=== PATIENT | male | born 1955 | race Hispanic/Latino ===

== ENCOUNTER 2018-08-14 08:53 | Observation (INO) | payer OTHER ==
--- OUTSIDE RECORDS SUMMARY | 2018-08-14 08:56 | XMS REPORT | Clinical Summary ---
:1955 Author Organization [facility] Address [address] [place] [address] Care Team Providers Name Role Phone Iban Primary Care Provider Allergies No Known Allergies Medications Medication Sig Dispensed Refills Start Date End Date Status HYDROcodone-acetamino Take 1 tablet 0 Active phen (NORCO 10-325) by mouth 10-325 mg per tablet every 6 (six) hours as needed for Pain. diazePAM (VALIUM) 10 Take 10 mg by 0 Active MG tablet mouth every 6 (six) hours as needed for Anxiety. amiodarone (PACERONE) Take 1 tablet 60 tablet 1 12/05/2017 Active 200 MG tablet (200 mg 9 total) by mouth 2 (two) times daily. aspirin 325 MG tablet Take 1 tablet 0 12/06/2017 Active (325 mg 9 total) by mouth daily. atorvastatin Take 1 tablet 30 tablet 1 12/05/2017 Active (LIPITOR) 40 MG (40 mg total) 9 tablet by mouth nightly. metoprolol Take 1 tablet 60 tablet 1 12/05/2017 Active (LOPRESSOR) 50 MG (50 mg total) 9 tablet by mouth 2 (two) times daily. tamsulosin (FLOMAX) Take 1 30 capsule 1 12/06/2017 Active 0.4 mg Cp24 24 hr capsule (0.4 capsule mg total) by mouth daily. cyclobenzaprine Take 1 tablet 30 tablet 0 12/05/2017 (FLEXERIL) 10 MG (10 mg total) 8 tablet by mouth 3 (three) times daily as needed for Muscle spasms for up to 10 days. furosemide (LASIX) 40 Take 1 tablet 30 tablet 1 12/06/2017 Discontinued MG tablet (40 mg total) 8 by mouth daily. furosemide (LASIX) 20 Take 1 tablet 30 tablet 1 12/06/2017 Discontinued MG tablet (20 mg total) 8 by mouth daily. furosemide (LASIX) 20 Take 1 tablet 7 tablet 0 12/06/2017 MG tablet (20 mg total) 8 by mouth daily for 7 days. Active Problems Problem Noted Date CAD (coronary artery disease) 11/29/2017 Coronary artery disease 11/29/2017 S/P CABG x 4 11/29/2017 Chronic pain 11/29/2017 Acute blood loss anemia 11/29/2017 Thrombocytopenia 11/29/2017 Acute postoperative pain 11/29/2017 Hyperglycemia 11/29/2017 Borderline diabetes 11/29/2017 Acute respiratory insufficiency, postoperative 11/29/2017 Encounters Date Type Specialty Care Team Description 11/29/2017 Surgery Chase Wong BYPASS,AORTO CORONARY MD Stewart JORGE/SVG 11/29/2017 Anesthesia Event Roland Tellez MD 11/28/2017 - Hospital Encounter Cardiology Chase Wong Acute postoperative pain; 12/05/2017 MD Stewart Acute respiratory insufficiency, postoperative; Zane Medellin Hyperglycemia; MD Matthew S/P CABG x 4; Acute blood loss anemia; Borderline diabetes; Other chronic pain; Thrombocytopenia (HCC) 11/28/2017 Orders Only General Internal Medicine after 08/13/2017 Social History Tobacco Use Types Packs/Day Years Used Date Never Smoker Smokeless Tobacco: Never Used Alcohol Use Drinks/Week oz/Week Comments No Sex Assigned at Date Recorded Not on file Job Start Date Occupation Industry Not on file Not on file Not on file Travel History Travel Start Travel End No recent travel history available. Last Filed Vital Signs Vital Sign Reading Time Taken Blood Pressure 118/60 12/05/2017 3:52 PM USABILITY ENGINEER Pulse 75 12/05/2017 3:52 PM USABILITY ENGINEER Temperature 36.7 C (98 F) 12/05/2017 3:52 PM USABILITY ENGINEER Respiratory Rate 18 12/05/2017 3:52 PM USABILITY ENGINEER Oxygen Saturation 97% 12/05/2017 3:52 PM USABILITY ENGINEER Inhaled Oxygen Concentration 40% 11/29/2017 10:00 PM USABILITY ENGINEER Weight 125.7 kg (277 lb 1.6 oz) 12/03/2017 10:15 AM USABILITY ENGINEER Height 185.4 cm (6' 1") 11/28/2017 2:00 PM USABILITY ENGINEER Body Mass Index 36.56 12/03/2017 10:15 AM USABILITY ENGINEER Plan of Treatment Not on file Implants Implanted Type Area Jointer Submarine Cable Device Shelf Model / Identifier Expiration Serial / Date Lot Sternal Zipfix Ndl Strl .[id number] - [id number] Cardiovascular N/A: SYNTHES:SYNTHES 07/16/2022..20S / Implanted: Qty: 1 on 11/29/2017 by Chase Wong MD [facility] / [id number] Procedures Procedure Name Priority Date/Time Associated Comments Diagnosis RHYTHM STRIP - SCAN 12/22/2017 12:01 PM USABILITY ENGINEER PERMANENT LAB REPORT - 12/07/2017 1:21 SCAN PM USABILITY ENGINEER RHYTHM STRIP - SCAN 12/07/2017 1:21 PM USABILITY ENGINEER ECHOCARDIOGRAM REPORT - 12/05/2017 5:20 SCAN PM USABILITY ENGINEER 2D ECHO W/ DOPPLER DESTINY 12/05/2017 3:03 Results for this (CW/PW/COLOR) PM USABILITY ENGINEER procedure are in the results section. POCT-GLUCOSE METER Routine 12/05/2017 12:20 Results for this PM USABILITY ENGINEER procedure are in the results section. POCT-GLUCOSE METER Routine 12/05/2017 8:29 Results for this AM USABILITY ENGINEER procedure are in the results section. POCT-GLUCOSE METER Routine 12/05/2017 12:23 Results for this AM USABILITY ENGINEER procedure are in the results section. CBC W/PLT COUNT & AUTO Routine 12/04/2017 5:50 Results for this DIFFERENTIAL AM USABILITY ENGINEER procedure are in the results section. HEMOGLOBIN A1C Routine 12/04/2017 5:50 Results for this AM USABILITY ENGINEER procedure are in the results section. BASIC METABOLIC PANEL (7) Routine 12/04/2017 5:50 Results for this AM USABILITY ENGINEER procedure are in the results section. CBC W/PLT COUNT & AUTO Routine 12/04/2017 5:50 Results for this DIFFERENTIAL AM USABILITY ENGINEER procedure are in the results section. POCT-GLUCOSE METER Routine 12/03/2017 9:37 Results for this PM USABILITY ENGINEER procedure are in the results section. POCT-GLUCOSE METER Routine 12/03/2017 6:13 Results for this PM USABILITY ENGINEER procedure are in the results section. CBC W/PLT COUNT & AUTO Routine 12/03/2017 4:47 Results for this DIFFERENTIAL AM USABILITY ENGINEER procedure are in the results section. MAGNESIUM Routine 12/03/2017 4:47 Results for this AM USABILITY ENGINEER procedure are in the results section. CBC W/PLT COUNT & AUTO Routine 12/03/2017 4:47 Results for this DIFFERENTIAL AM USABILITY ENGINEER procedure are in the results section. BASIC METABOLIC PANEL (7) Routine 12/03/2017 4:47 Results for this AM USABILITY ENGINEER procedure are in the results section. POCT-GLUCOSE METER Routine 12/02/2017 9:37 Results for this PM USABILITY ENGINEER procedure are in the results section. POCT-GLUCOSE METER Routine 12/02/2017 6:40 Results for this PM USABILITY ENGINEER procedure are in the results section. PT/APTT Routine 12/02/2017 8:52 Results for this AM USABILITY ENGINEER procedure are in the results section. CBC W/PLT COUNT & AUTO Routine 12/02/2017 8:44 Results for this DIFFERENTIAL AM USABILITY ENGINEER procedure are in the results section. MAGNESIUM Routine 12/02/2017 8:44 Results for this AM USABILITY ENGINEER procedure are in the results section. CBC W/PLT COUNT & AUTO Routine 12/02/2017 8:44 Results for this DIFFERENTIAL AM USABILITY ENGINEER procedure are in the results section. BASIC METABOLIC PANEL (7) Routine 12/02/2017 8:44 Results for this AM USABILITY ENGINEER procedure are in the results section. POCT-GLUCOSE METER Routine 12/02/2017 8:27 Results for this AM USABILITY ENGINEER procedure are in the results section. ECG 12-LEAD Routine 12/02/2017 8:08 Results for this AM USABILITY ENGINEER procedure are in the results section. POCT-GLUCOSE METER Routine 12/01/2017 9:14 Results for this PM USABILITY ENGINEER procedure are in the results section. POCT-GLUCOSE METER Routine 12/01/2017 5:35 Results for this PM USABILITY ENGINEER procedure are in the results section. HEMOGLOBIN AND HEMATOCRIT Routine 12/01/2017 3:38 Results for this PM USABILITY ENGINEER procedure are in the results section. POCT-GLUCOSE METER Routine 12/01/2017 12:48 Results for this PM USABILITY ENGINEER procedure are in the results section. ECHOCARDIOGRAM REPORT - 12/01/2017 7:20 SCAN AM USABILITY ENGINEER POCT-GLUCOSE METER Routine 12/01/2017 7:20 Results for this AM USABILITY ENGINEER procedure are in the results section. CBC W/PLT COUNT & AUTO Routine 12/01/2017 4:42 Results for this DIFFERENTIAL AM USABILITY ENGINEER procedure are in the results section. MAGNESIUM Routine 12/01/2017 4:42 Results for this AM USABILITY ENGINEER procedure are in the results section. BASIC METABOLIC PANEL (7) Routine 12/01/2017 4:42 Results for this AM USABILITY ENGINEER procedure are in the results section. CBC W/PLT COUNT & AUTO Routine 12/01/2017 4:42 Results for this DIFFERENTIAL AM USABILITY ENGINEER procedure are in the results section. XR CHEST 1 VIEW Routine 12/01/2017 4:02 Results for this PORTABLE/BEDSIDE AM USABILITY ENGINEER procedure are in the results section. POCT-GLUCOSE METER Routine 11/30/2017 9:57 Results for this PM USABILITY ENGINEER procedure are in the results section. TRANSFUSION SERVICE 11/30/2017 5:42 REPORT - SCAN PM USABILITY ENGINEER POCT-GLUCOSE METER Routine 11/30/2017 4:55 Results for this PM USABILITY ENGINEER procedure are in the results section. POCT-GLUCOSE METER Routine 11/30/2017 12:04 Results for this PM USABILITY ENGINEER procedure are in the results section. CBC (HEMOGRAM ONLY) STAT 11/30/2017 12:04 Results for this PM USABILITY ENGINEER procedure are in the results section. POCT-GLUCOSE METER Routine 11/30/2017 9:17 Results for this AM USABILITY ENGINEER procedure are in the results section. POCT-GLUCOSE METER Routine 11/30/2017 4:44 Results for this AM USABILITY ENGINEER procedure are in the results section. XR CHEST 1 VIEW Routine 11/30/2017 4:23 Results for this PORTABLE/BEDSIDE AM USABILITY ENGINEER procedure are in the results section. CBC W/PLT COUNT & AUTO Routine 11/30/2017 3:04 Results for this DIFFERENTIAL AM USABILITY ENGINEER procedure are in the results section. MAGNESIUM Routine 11/30/2017 3:04 Results for this AM USABILITY ENGINEER procedure are in the results section. BASIC METABOLIC PANEL (7) Routine 11/30/2017 3:04 Results for this AM USABILITY ENGINEER procedure are in the results section. CBC W/PLT COUNT & AUTO Routine 11/30/2017 3:04 Results for this DIFFERENTIAL AM USABILITY ENGINEER procedure are in the results section. POCT-GLUCOSE METER Routine 11/30/2017 3:03 Results for this AM USABILITY ENGINEER procedure are in the results section. POCT-GLUCOSE METER Routine 11/30/2017 2:01 Results for this AM USABILITY ENGINEER procedure are in the results section. POCT-GLUCOSE METER Routine 11/30/2017 1:01 Results for this AM USABILITY ENGINEER procedure are in the results section. CALCIUM, IONIZED STAT 11/30/2017 12:15 Results for this AM USABILITY ENGINEER procedure are in the results section. POTASSIUM STAT 11/30/2017 12:15 Results for this AM USABILITY ENGINEER procedure are in the results section. MAGNESIUM STAT 11/30/2017 12:15 Results for this AM USABILITY ENGINEER procedure are in the results section. POCT-GLUCOSE METER Routine 11/30/2017 12:07 Results for this AM USABILITY ENGINEER procedure are in the results section. POCT-GLUCOSE METER Routine 11/29/2017 10:49 Results for this PM USABILITY ENGINEER procedure are in the results section. POCT-GLUCOSE METER Routine 11/29/2017 10:11 Results for this PM USABILITY ENGINEER procedure are in the results section. POCT-GLUCOSE METER Routine 11/29/2017 9:02 Results for this PM USABILITY ENGINEER procedure are in the results section. BLOOD GAS, ARTERIAL STAT 11/29/2017 8:55 Results for this PM USABILITY ENGINEER procedure are in the results section. POCT-GLUCOSE METER Routine 11/29/2017 7:55 Results for this PM USABILITY ENGINEER procedure are in the results section. BLOOD GAS, ARTERIAL STAT 11/29/2017 7:50 Results for this PM USABILITY ENGINEER procedure are in the results section. MAGNESIUM Routine 11/29/2017 7:50 Results for this PM USABILITY ENGINEER procedure are in the results section. POCT-GLUCOSE METER Routine 11/29/2017 6:41 Results for this PM USABILITY ENGINEER procedure are in the results section. TRANSFUSION SERVICE 11/29/2017 5:43 REPORT - SCAN PM USABILITY ENGINEER POCT-GLUCOSE METER Routine 11/29/2017 5:42 Results for this PM USABILITY ENGINEER procedure are in the results section. 2D ECHO W/ DOPPLER Routine 11/29/2017 5:07 Results for this (CW/PW/COLOR) PM USABILITY ENGINEER procedure are in the results section. XR CHEST 1 VIEW STAT 11/29/2017 4:00 Results for this PORTABLE/BEDSIDE PM USABILITY ENGINEER procedure are in the results section. APTT STAT 11/29/2017 3:42 Results for this PM USABILITY ENGINEER procedure are in the results section. PROTHROMBIN TIME/INR STAT 11/29/2017 3:42 Results for this PM USABILITY ENGINEER procedure are in the results section. CBC W/PLT COUNT & AUTO STAT 11/29/2017 3:36 Results for this DIFFERENTIAL PM USABILITY ENGINEER procedure are in the results section. MAGNESIUM STAT 11/29/2017 3:36 Results for this PM USABILITY ENGINEER procedure are in the results section. BASIC METABOLIC PANEL (7) Routine 11/29/2017 3:36 Results for this PM USABILITY ENGINEER procedure are in the results section. CBC W/PLT COUNT & AUTO STAT 11/29/2017 3:36 Results for this DIFFERENTIAL PM USABILITY ENGINEER procedure are in the results section. LACTIC ACID, ARTERIAL, STAT 11/29/2017 3:36 Results for this WHOLE BLOOD PM USABILITY ENGINEER procedure are in the results section. OXYGEN SATURATION, STAT 11/29/2017 3:36 Results for this MEASURED PM USABILITY ENGINEER procedure are in the results section. HGB/HCT (H&H) - STAT LAB STAT 11/29/2017 3:36 Results for this PM USABILITY ENGINEER procedure are in the results section. GLUCOSE-STAT LAB STAT 11/29/2017 3:36 Results for this PM USABILITY ENGINEER procedure are in the results section. CALCIUM, IONIZED STAT 11/29/2017 3:36 Results for this PM USABILITY ENGINEER procedure are in the results section. POTASSIUM-STAT LAB STAT 11/29/2017 3:36 Results for this PM USABILITY ENGINEER procedure are in the results section. SODIUM NA-STAT LAB STAT 11/29/2017 3:36 Results for this PM USABILITY ENGINEER procedure are in the results section. BLOOD GAS, ARTERIAL STAT 11/29/2017 3:36 Results for this PM USABILITY ENGINEER procedure are in the results section. PREPARE PLATELETS STAT 11/29/2017 3:30 Results for this PM USABILITY ENGINEER procedure are in the results section. POCT-ACT Routine 11/29/2017 1:44 Results for this PM USABILITY ENGINEER procedure are in the results section. HGB/HCT (H&H) - STAT LAB STAT 11/29/2017 1:40 Results for this PM USABILITY ENGINEER procedure are in the results section. GLUCOSE-STAT LAB STAT 11/29/2017 1:40 Results for this PM USABILITY ENGINEER procedure are in the results section. POTASSIUM-STAT LAB STAT 11/29/2017 1:40 Results for this PM USABILITY ENGINEER procedure are in the results section. SODIUM NA-STAT LAB STAT 11/29/2017 1:40 Results for this PM USABILITY ENGINEER procedure are in the results section. BLOOD GAS, ARTERIAL STAT 11/29/2017 1:40 Results for this PM USABILITY ENGINEER procedure are in the results section. THROMBOELASTOGRAPH (TEG) STAT 11/29/2017 1:40 Results for this PM USABILITY ENGINEER procedure are in the results section. FIBRINOGEN STAT 11/29/2017 1:40 Results for this PM USABILITY ENGINEER procedure are in the results section. APTT STAT 11/29/2017 1:40 Results for this PM USABILITY ENGINEER procedure are in the results section. PROTHROMBIN TIME/INR STAT 11/29/2017 1:40 Results for this PM USABILITY ENGINEER procedure are in the results section. CALCIUM, IONIZED STAT 11/29/2017 1:40 Results for this PM USABILITY ENGINEER procedure are in the results section. RRL CRITICAL LABS STAT 11/29/2017 1:40 Results for this (ABG,NA,K,H&H,GLUCOSE) PM USABILITY ENGINEER procedure are in the results section. PLATELET COUNT STAT 11/29/2017 1:40 Results for this PM USABILITY ENGINEER procedure are in the results section. POCT-ACT Routine 11/29/2017 1:06 Results for this PM USABILITY ENGINEER procedure are in the results section. HGB/HCT (H&H) - STAT LAB STAT 11/29/2017 1:03 Results for this PM USABILITY ENGINEER procedure are in the results section. GLUCOSE-STAT LAB STAT 11/29/2017 1:03 Results for this PM USABILITY ENGINEER procedure are in the results section. POTASSIUM-STAT LAB STAT 11/29/2017 1:03 Results for this PM USABILITY ENGINEER procedure are in the results section. SODIUM NA-STAT LAB STAT 11/29/2017 1:03 Results for this PM USABILITY ENGINEER procedure are in the results section. BLOOD GAS, ARTERIAL STAT 11/29/2017 1:03 Results for this PM USABILITY ENGINEER procedure are in the results section. RRL CRITICAL LABS STAT 11/29/2017 1:03 Results for this (ABG,NA,K,H&H,GLUCOSE) PM USABILITY ENGINEER procedure are in the results section. POCT-ACT Routine 11/29/2017 12:33 Results for this PM USABILITY ENGINEER procedure are in the results section. HGB/HCT (H&H) - STAT LAB STAT 11/29/2017 12:29 Results for this PM USABILITY ENGINEER procedure are in the results section. GLUCOSE-STAT LAB STAT 11/29/2017 12:29 Results for this PM USABILITY ENGINEER procedure are in the results section. POTASSIUM-STAT LAB STAT 11/29/2017 12:29 Results for this PM USABILITY ENGINEER procedure are in the results section. SODIUM NA-STAT LAB STAT 11/29/2017 12:29 Results for this PM USABILITY ENGINEER procedure are in the results section. BLOOD GAS, ARTERIAL STAT 11/29/2017 12:29 Results for this PM USABILITY ENGINEER procedure are in the results section. RRL CRITICAL LABS STAT 11/29/2017 12:29 Results for this (ABG,NA,K,H&H,GLUCOSE) PM USABILITY ENGINEER procedure are in the results section. POCT-ACT Routine 11/29/2017 12:17 Results for this PM USABILITY ENGINEER procedure are in the results section. HGB/HCT (H&H) - STAT LAB STAT 11/29/2017 10:53 Results for this AM USABILITY ENGINEER procedure are in the results section. GLUCOSE-STAT LAB STAT 11/29/2017 10:53 Results for this AM USABILITY ENGINEER procedure are in the results section. POTASSIUM-STAT LAB STAT 11/29/2017 10:53 Results for this AM USABILITY ENGINEER procedure are in the results section. SODIUM NA-STAT LAB STAT 11/29/2017 10:53 Results for this AM USABILITY ENGINEER procedure are in the results section. BLOOD GAS, ARTERIAL STAT 11/29/2017 10:53 Results for this AM USABILITY ENGINEER procedure are in the results section. RRL CRITICAL LABS STAT 11/29/2017 10:53 Results for this (ABG,NA,K,H&H,GLUCOSE) AM USABILITY ENGINEER procedure are in the results section. XR CHEST 1 VIEW STAT 11/29/2017 8:49 Results for this PORTABLE/BEDSIDE AM USABILITY ENGINEER procedure are in the results section. ENDOSCOPIC HARVEST,VEIN 11/29/2017 7:29 CAOD AM USABILITY ENGINEER BYPASS,AORTO CORONARY 11/29/2017 7:29 CAOD JORGE/SVG AM USABILITY ENGINEER POCT-GLUCOSE METER Routine 11/29/2017 7:20 Results for this AM USABILITY ENGINEER procedure are in the results section. CBC W/PLT COUNT & AUTO Routine 11/29/2017 5:45 Results for this DIFFERENTIAL AM USABILITY ENGINEER procedure are in the results section. MAGNESIUM Routine 11/29/2017 5:45 Results for this AM USABILITY ENGINEER procedure are in the results section. BASIC METABOLIC PANEL (7) Routine 11/29/2017 5:45 Results for this AM USABILITY ENGINEER procedure are in the results section. PROTHROMBIN TIME/INR Routine 11/29/2017 5:45 Results for this AM USABILITY ENGINEER procedure are in the results section. COMPREHENSIVE METABOLIC Routine 11/29/2017 5:45 Results for this PANEL AM USABILITY ENGINEER procedure are in the results section. CBC W/PLT COUNT & AUTO Routine 11/29/2017 5:45 Results for this DIFFERENTIAL AM USABILITY ENGINEER procedure are in the results section. POCT-GLUCOSE METER Routine 11/28/2017 9:50 Results for this PM USABILITY ENGINEER procedure are in the results section. POCT-GLUCOSE METER Routine 11/28/2017 7:13 Results for this PM USABILITY ENGINEER procedure are in the results section. PLATELET AGGREGATION: AP Routine 11/28/2017 6:11 Results for this FUNCTION SCREEN PM USABILITY ENGINEER procedure are in the results section. ECG 12-LEAD Routine 11/28/2017 5:59 PM USABILITY ENGINEER Procedure Note - Interface, External Ris In - 11/28/2017 9:13 PM USABILITY ENGINEER Ventricular Rate 64 BPM Atrial Rate 64 BPM P-R Interval 114 ms QRS Duration 104 ms Q-T Interval 436 ms QTC Calculation(Bazett) 449 ms P [place] 31 degrees R [place] -65 degrees T [place] -40 degrees Normal sinus rhythm Left axis deviation T wave abnormality, consider lateral ischemia Abnormal ECG No previous ECGs available ECG 12-LEAD Routine 11/28/2017 5:59 PM USABILITY ENGINEER FIBRINOGEN Routine 11/28/2017 5:52 PM USABILITY ENGINEER APTT Routine 11/28/2017 5:52 PM USABILITY ENGINEER TYPE AND SCREEN, Routine 11/28/2017 3:41 PM USABILITY ENGINEER Results for this AUTOMATED procedure are in the results section. PT/APTT Routine 11/28/2017 3:41 PM USABILITY ENGINEER LIPID PANEL Routine 11/28/2017 3:40 PM USABILITY ENGINEER MAGNESIUM Routine 11/28/2017 3:40 PM USABILITY ENGINEER PHOSPHORUS Routine 11/28/2017 3:40 PM USABILITY ENGINEER TSH/FREE T4 IF INDICATED Routine 11/28/2017 3:40 PM USABILITY ENGINEER HEPATIC FUNCTION PANEL Routine 11/28/2017 3:40 PM USABILITY ENGINEER BASIC METABOLIC PANEL (7) Routine 11/28/2017 3:40 PM USABILITY ENGINEER HEMOGLOBIN A1C AP Routine 11/28/2017 3:40 PM USABILITY ENGINEER after 08/13/2017 Results RHYTHM STRIP - SCAN (12/22/2017 12:01 PM USABILITY ENGINEER)Only the most recent of2 resultswithin the time period is included. Narrative Performed At PERMANENT LAB REPORT - SCAN (12/07/2017 1:21 PM USABILITY ENGINEER) Narrative Performed At ECHOCARDIOGRAM REPORT - SCAN (12/05/2017 5:20 PM USABILITY ENGINEER) Narrative Performed At 2D Echo W/Doppler(CW/PW/Color) (12/05/2017 3:03 PM USABILITY ENGINEER) Ejection Fraction [facility] Narrative Performed At Transthoracic Echocardiography Report (TTE) [facility] Demographics Patient Name EFREN BELTRÁNFODate of Study 12/05/2017 [id number] GenderMale Visit Number [id number] RaceUnknown [id number] Number [id number] Number Date of Birth1955 Referring Physician Kiya Murphy MD Age62 year(s) Shank Tapper Andrew Armstrong, [facility] Rk Alcaraz,Quyen Crouch MD [facility] Physician Procedure Type of Study TTE procedure:2DECHO W DOPPLER(CW/PW/COLOR) (Routine) Indications:Shortness of breath. Clinical History CAD, PR HGB 7.6 HCT 25.2 % ACB X 4 11/29/2017 Contrast Medium: Definity. Amount - 2 ml Height: 73 inches Weight: 124.74 kg (275 lbs) BSA: 2.46 m^2 BMI: 36.28 kg/m^2 HR: 80 bpm BP: 120/64 mmHg Summary The LV apex is incompletely visualized due to foreshortening. LV endocardium is partially visualized with IV ultrasound enhancing agent. The left ventricle is chamber size (by vol index) is normal (male - LVED vol - 34-74ml/m2). Mild concentric LV hypertrophy. The following segment(s) appear akinetic: basal inferior, basal inferoseptal . The other segments have low normal contractility. Global LV systolic function lower limits of normal . LVEF by Campbell's method of disk assessment is lower limits of normal (50-55%) . The LVEF was measured using Campbell's single plane method (apical 4 chamber) . Grade 2 diastolic dysfunction (moderately increased LA pressure). The right ventricular chamber size and systolic function are within normal limits. Unable to estimate peak systolic PA pressure; inadequate TR velocity signal. No pericardial effusion is visualized. Signature Findings Technical Quality: Technically adequate exam. Rhythm/BPRegular sinus rhythm during the exam. Left Ventricle The LV apex is incompletely visualized due to fo reshortening. LV endocardium is partially visualized with IV ul trasound enhancing agent. Th e left ventricle is chamber size (by vol index) is normal (male - LVED vol - 34-74ml/m2). Mild co ncentric LV hypertrophy. The following segment(s) ap pear akinetic: basal inferior, basal inferoseptal . The other segments have low normal contractility. Gl obal LV systolic function lower limits of normal . LVEF by Campbell's method of disk assessment is lo wer limits of normal (50-55%) . The LVEF was me asured using Campbell's single plane method (a pical 4 chamber) . Gr amado 2 diastolic dysfunction (moderately increased LA pressure). Left AtriumLA size is normal (16-34 ml/m2) . Right VentricleThe right ventricular chamber size and systolic fu nction are within normal limits. Right Atrium RA cavity size is normal . Aortic Valve Mild AoV cusp thickening. Mitral Valve Mild MV leaflet thickening. Tricuspid ValveTV structure is normal. Un able to estimate peak systolic PA pressure; in adequate TR velocity signal. Pulmonic Valve Normal PV structure and function by limited views an d Doppler. AortaAortic root size (SInus of Valsalva diameter) is no rmal . PericardiumNo pericardial effusion is visualized. IVC/SVC/PA/PV/PleuralThe inferior vena cava is adequately visualized. Th e inferior vena cava size is normal . Th e estimated RA pressure by IVC dynamics 0-5mmHg . Chambers/Structures Left Atrium LA Volume: 81.05 ml LA Area: 23.38 cm^2 LA Vol. Index: 33 ml/m^2 Left Ventricle LVIDd: 5.27 cm LVIDs: 3.89 cm LV Septum Diastolic: 1.47 cm LV PW Diastolic: 1.32 cmLV FS: 26.2 % LVEDV Campbell's:155.05 ml LVESV Campbell's:74.07 mlLVEDVI: 63 ml/m^2 LVEF Campbell's: 52.2 %LVESV I: 30 ml/m^2 LVOT Diameter: 2.63 cm Aorta Ao Root S of Kim.: 3.69 cm Doppler/Quantitative Measurements Mitral Valve MV Peak E-Wave: 1 m/sMV Peak A-Wave: 0.9 m/s E/A Ratio: 1.12 Peak Gradient: 4.02 mmHg Deceleration Time: 140 msec MV Jarad. Peak: Tissue Doppler E' Septal Velocity: 0.07 m/s E/E': 14.53 Aortic Valve Peak Velocity: 1.29 m/sMean Velocity: 0.91 m/s Peak Gradient: 6.65 mmHg Mean Gradient: 3.71 mmHg AV Area (continuity): 4.64 cm^2 AV VTI: 22.63 cm AV DVI: 0.85 LVOT Peak Velocity: 1.07 m/s Peak Gradient: 4.61 mmHg Mean Velocity: 0.68 m/s Mean Gradient: 2.18 mmHg LVOT Diameter: 2.63 cmLVOT VTI: 19.34 cm LVOT Area: 5.43 cm^2LVOT SV:105.01 ml LVOT CO: 8.4 l/minLVOT CI: 3.41 l/min/m^2 Procedure Note Interface, External Ris In - 12/05/2017 4:54 PM USABILITY ENGINEER Transthoracic Echocardiography Report (TTE) Demographics Patient Name ARMOND BELTRÁN Date of Study 12/05/2017 Gender Male Visit Number [id number] Race Unknown Room Number 1122 Number Date of 1955 Referring Physician Kiya Murphy MD Age 62 year(s) Shank Tapper Andrew Armstrong, [facility] Licensing Engineer Kelli Alcaraz, Interpreting Masood Crouch MD [facility] Physician Procedure Type of Study TTE procedure:2DECHO W DOPPLER(CW/PW/COLOR) (Routine) Indications:Shortness of breath. Clinical History CAD, PR HGB 7.6 HCT 25.2 % ACB X 4 11/29/2017 Contrast Medium: Definity. Amount - 2 ml Height: 73 inches Weight: 124.74 kg (275 lbs) BSA: 2.46 m^2 BMI: 36.28 kg/m^2 HR: 80 bpm BP: 120/64 mmHg Summary The LV apex is incompletely visualized due to foreshortening. LV endocardium is partially visualized with IV ultrasound enhancing agent. The left ventricle is chamber size (by vol index) is normal (male - LVED vol - 34-74ml/m2). Mild concentric LV hypertrophy. The following segment(s) appear akinetic: basal inferior, basal inferoseptal . The other segments have low normal contractility. Global LV systolic function lower limits of normal . LVEF by Campbell's method of disk assessment is lower limits of normal (50-55%) . The LVEF was measured using Campbell's single plane method (apical 4 chamber) . Grade 2 diastolic dysfunction (moderately increased LA pressure). The right ventricular chamber size and systolic function are within normal limits. Unable to estimate peak systolic PA pressure; inadequate TR velocity signal. No pericardial effusion is visualized. Signature Findings Technical Quality: Technically adequate exam. Rhythm/BP Regular sinus rhythm during the exam. Left Ventricle The LV apex is incompletely visualized due to foreshortening. LV endocardium is partially visualized with IV ultrasound enhancing agent. The left ventricle is chamber size (by vol index) is normal (male - LVED vol - 34-74ml/m2). Mild concentric LV hypertrophy. The following segment(s) appear akinetic: basal inferior, basal inferoseptal . The other segments have low normal contractility. Global LV systolic function lower limits of normal . LVEF by Campbell's method of disk assessment is lower limits of normal (50-55%) . The LVEF was measured using Campbell's single plane method (apical 4 chamber) . Grade 2 diastolic dysfunction (moderately increased LA pressure). Left Atrium LA size is normal (16-34 ml/m2) . Right Ventricle The right ventricular chamber size and systolic function are within normal limits. Right Atrium RA cavity size is normal . Aortic Valve Mild AoV cusp thickening. Mitral Valve Mild MV leaflet thickening. Tricuspid Valve TV structure is normal. Unable to estimate peak systolic PA pressure; inadequate TR velocity signal. Pulmonic Valve Normal PV structure and function by limited views and Doppler. Aorta Aortic root size (SInus of Valsalva diameter) is normal . Pericardium No pericardial effusion is visualized. IVC/SVC/PA/PV/Pleural The inferior vena cava is adequately visualized. The inferior vena cava size is normal . The estimated RA pressure by IVC dynamics 0-5mmHg . Chambers/Structures Left Atrium LA Volume: 81.05 ml LA Area: 23.38 cm^2 LA Vol. Index: 33 ml/m^2 Left Ventricle LVIDd: 5.27 cm LVIDs: 3.89 cm LV Septum Diastolic: 1.47 cm LV PW Diastolic: 1.32 cm LV FS: 26.2 % LVEDV Campbell's:155.05 ml LVESV Campbell's:74.07 ml LVEDVI: 63 ml/m^2 LVEF Campbell's: 52.2 % LVESVI: 30 ml/m^2 LVOT Diameter: 2.63 cm Aorta Ao Root S of Kim.: 3.69 cm Doppler/Quantitative Measurements Mitral Valve MV Peak E-Wave: 1 m/s MV Peak A-Wave: 0.9 m/s E/A Ratio: 1.12 Peak Gradient: 4.02 mmHg Deceleration Time: 140 msec MV Jarad. Peak: Tissue Doppler E' Septal Velocity: 0.07 m/s E/E': 14.53 Aortic Valve Peak Velocity: 1.29 m/s Mean Velocity: 0.91 m/s Peak Gradient: 6.65 mmHg Mean Gradient: 3.71 mmHg AV Area (continuity): 4.64 cm^2 AV VTI: 22.63 cm AV DVI: 0.85 LVOT Peak Velocity: 1.07 m/s Peak Gradient: 4.61 mmHg Mean Velocity: 0.68 m/s Mean Gradient: 2.18 mmHg LVOT Diameter: 2.63 cm LVOT VTI: 19.34 cm LVOT Area: 5.43 cm^2 LVOT SV:105.01 ml LVOT CO: 8.4 l/min LVOT CI: 3.41 l/min/m^2 Performing Organization Address City/[facility] Phone Number [facility] CPACS POC-Glucose meter (12/05/2017 12:20 PM USABILITY ENGINEER)Only the most recent of30 resultswithin the time period is included. POC-Glucose Meter 255 (H)Comment: TESTED AT 70 - 110 mg/dL [address] [address] Specimen Blood Performing Organization Address [facility] Phone Number [address] [address] [phone] CENTER CBC with platelet count + automated diff (12/04/2017 5:50 AM USABILITY ENGINEER)Only the most recent of7 resultswithin the time period is included. WBC 5.9 3.5 - 10.5 K/L [facility] RBC 2.75 (L) 4.63 - 6.08 M/L [facility] Hemoglobin 7.6 (L) 13.7 - 17.5 GM/DL [facility] Hematocrit 25.2 (L) 40.1 - 51.0 % [facility] MCV 91.6 79.0 - 92.2 fL [facility] MCH 27.6 25.7 - 32.2 pg [facility] MCHC 30.2 (L) 32.3 - 36.5 GM/DL [facility] RDW 14.7 (H) 11.6 - 14.4 % [facility] Platelets 209 150 - 450 K/CU MM [facility] MPV 11.2 9.4 - 12.4 fL [facility] nRBC 0 0 - 0 /100 WBC [facility] % Neutros 64 % [facility] % Lymphs 25 % [facility] % Monos 6 % [facility] % Eos 4 % [facility] % Baso 0 % [facility] # Neutros 3.76 1.78 - 5.38 K/L [facility] # Lymphs 1.49 1.32 - 3.57 K/L [facility] # Monos 0.35 0.30 - 0.82 K/L [facility] # Eos 0.21 0.04 - 0.54 K/L [facility] # Baso 0.01 0.01 - 0.08 K/L [facility] Immature Granulocytes-Relative 1 0 - 1 % [facility] Specimen Blood - Arm, Left Performing Organization Address City/[facility]/Zipcode Phone Number [address] [address] [phone] CENTER Hemoglobin A1c (12/04/2017 5:50 AM USABILITY ENGINEER)Only the most recent of2 resultswithin the time period is included. Hemoglobin A1C 6.9 (H) 4.3 - 6.1 % [facility] Specimen Blood - Arm, Left Performing Organization Address City/[facility]/Zipcode Phone Number [address] [address] [place] Basic Metabolic Panel (12/04/2017 5:50 AM USABILITY ENGINEER)Only the most recent of8 resultswithin the time period is included. Sodium 139 136 - 145 meq/L [facility] Potassium 3.9 3.5 - 5.1 meq/L [facility] Chloride 106 98 - 107 meq/L [facility] CO2 23 22 - 29 meq/L [facility] BUN 16 7 - 21 mg/dL [facility] Creatinine 0.77 0.57 - 1.25 mg/dL [facility] Glucose 126 (H) 70 - 105 mg/dL [facility] Calcium 8.4 8.4 - 10.2 mg/dL [facility] EGFR Comment: INSUFFICIENT CLINICAL mL/min/1.73 sq m [facility] DATA TO CALCULATE ESTIMATED [facility] CENTER GFR. Specimen Blood - Arm, Left Performing Organization Address City/[facility]/Zipcode Phone Number [address] [address] [phone] CENTER Magnesium (12/03/2017 4:47 AM USABILITY ENGINEER)Only the most recent of9 resultswithin the time period is included. Magnesium 1.9 1.6 - 2.6 mg/dL [facility] Specimen Blood - Arm, Left Performing Organization Address City/[facility]/Zipcode Phone Number [address] [address] CENTER PT/aPTT (12/02/2017 8:52 AM USABILITY ENGINEER)Only the most recent of2 resultswithin the time period is included. Protime 14.5 11.7 - 14.7 seconds [facility] INR 1.1 <=5.9 [facility] PTT 32.4 22.5 - 36.0 seconds [facility] Specimen Blood Narrative Performed At [facility] RECOMMENDED COUMADIN/WARFARIN INR THERAPY RANGES STANDARD DOSE: 2.0 - 3.0 Includes: PROPHYLAXIS for venous thrombosis, systemic embolization; TREATMENT for venous thrombosis and/or pulmonary embolus. HIGH RISK: Target INR is 2.5-3.5 for patients with mechanical heart valves. Performing Organization Address City/State/Zipcode Phone Number [facility] [address] [place] [address] [place] ECG 12 lead (12/02/2017 8:08 AM USABILITY ENGINEER)Only the most recent of2 resultswithin the time period is included. Narrative Performed At Ventricular Rate 164 BPM GE MUSE Atrial Rate 197 BPM QRS Duration 104 ms Q-T Interval 314 ms QTC Calculation(Bazett) 518 ms R [place] -68 degrees T [place] 65 degrees Atrial fibrillation with rapid ventricular response with premature ventricular or aberrantly conducted complexes Left anterior fascicular block Nonspecific ST abnormality Abnormal ECG When compared with ECG of 07-FEB-1996 12:05, Significant changes have occurred Confirmed by MD BETSY, IHAB ([id number]) on 12/02/2017 6:33:18 PM Procedure Note Interface, External Ris In - 12/02/2017 6:33 PM USABILITY ENGINEER Ventricular Rate 164 BPM Atrial Rate 197 BPM QRS Duration 104 ms Q-T Interval 314 ms QTC Calculation(Bazett) 518 ms R [place] -68 degrees T [place] 65 degrees Atrial fibrillation with rapid ventricular response with premature ventricular or aberrantly conducted complexes Left anterior fascicular block Nonspecific ST abnormality Abnormal ECG When compared with ECG of 07-FEB-1996 12:05, Significant changes have occurred Confirmed by MD BETSY, IHAB ([id number]) on 12/02/2017 6:33:18 PM Performing Organization Address City/[facility]/[place] Phone Number [employer] Hemoglobin and hematocrit (12/01/2017 3:38 PM USABILITY ENGINEER) Hemoglobin 7.4 (L) 13.7 - 17.5 GM/DL [facility] Hematocrit 23.9 (L) 40.1 - 51.0 % [facility] Specimen Blood - Arm, Left Performing Organization Address [facility]/State/Zipcode Phone Number [facility] [address] [place] [address] [place] ECHOCARDIOGRAM REPORT - SCAN (12/01/2017 7:20 AM USABILITY ENGINEER) Narrative Performed At XR chest 1 view portable / bedside (12/01/2017 4:02 AM USABILITY ENGINEER)Only the most recent of4 resultswithin the time period is included. Narrative Performed At FINAL REPORT GE [employer] Chest one view compared to November 30 Discussion: Mild pulmonary congestion and probable left lower lung atelectasis. I could not exclude small left effusion. No pneumothorax. IMPRESSIONS: Similar cardiopulmonary appearance. Signed: Atul Mcdonough MD Report Verified Date/Time:12/01/2017 07:47:00 Reading Location: [facility] Radiology Reading Room Procedure Note Interface, External Ris In - 12/01/2017 7:49 AM USABILITY ENGINEER FINAL REPORT Chest one view compared to November 30 Discussion: Mild pulmonary congestion and probable left lower lung atelectasis. I could not exclude small left effusion. No pneumothorax. IMPRESSIONS: Similar cardiopulmonary appearance. Signed: Atul Mcdonough MD Report Verified Date/Time: 12/01/2017 07:47:00 Reading Location: [facility] Radiology Reading Room Performing Organization Address City/State/Zipcode Phone Number [employer] TRANSFUSION SERVICE REPORT - SCAN (11/30/2017 5:42 PM USABILITY ENGINEER)Only the most recent of2 resultswithin the time period is included. Narrative Performed At CBC (Hemogram only) (11/30/2017 12:04 PM USABILITY ENGINEER) WBC 9.1 3.5 - 10.5 K/L [facility] RBC 3.01 (L) 4.63 - 6.08 M/L [facility] Hemoglobin 8.3 (L) 13.7 - 17.5 GM/DL [facility] Hematocrit 26.5 (L) 40.1 - 51.0 % [facility] MCV 88.0 79.0 - 92.2 fL [facility] MCH 27.6 25.7 - 32.2 pg [facility] MCHC 31.3 (L) 32.3 - 36.5 GM/DL [facility] RDW 14.1 11.6 - 14.4 % [facility] Platelets 128 (L) 150 - 450 K/CU MM [facility] MPV 11.8 9.4 - 12.4 fL [facility] nRBC 0 0 - 0 /100 WBC [facility] Specimen Blood - Line, Arterial Performing Organization Address City/[facility] Phone Number [address] [address] [place] Calcium, Ionized (11/30/2017 12:15 AM USABILITY ENGINEER)Only the most recent of3 resultswithin the time period is included. Calcium, Ion 1.08 (L) 1.12 - 1.27 mmol/L [facility] pH, Blood 7.39 [facility] Specimen Blood Performing Organization Address City/[facility] Cent[facility] Phone Number [address] [address] [phone] [place] Potassium (11/30/2017 12:15 AM USABILITY ENGINEER) Potassium 4.3 3.5 - 5.1 meq/L [facility] Specimen Blood Performing Organization Address City/[facility] Phone Number [address] [address] [phone] [place] Blood gas, arterial (11/29/2017 8:55 PM USABILITY ENGINEER)Only the most recent of7 resultswithin the time period is included. pH, Arterial 7.35 7.35 - 7.45 [facility] pCO2, Arterial 43 35 - 45 mmHg [facility] pO2, Arterial 136 (H) 80 - 90 mmHg [facility] O2 Sat, Arterial 98.6 (H) 96.0 - 97.0 % [facility] HCO3, Arterial 23 21 - 29 mmol/L [facility] Base Excess, Arterial -2.1 (L) -2.0 - 3.0 mmol/L [facility] Patient Temperature 37.1 C [facility] FIO2 36.0 % [facility] Specimen Blood, Arterial Narrative Performed At Post extubation ABG [facility] Performing Organization Address City/State/Zipcode Phone Number [facility] [address] [place] [address] CENTER 2D Echo W/Doppler(CW/PW/Color) (11/29/2017 5:07 PM USABILITY ENGINEER) Ejection Fraction [facility] Narrative Performed At Transthoracic Echocardiography Report (TTE) [facility] Demographics Patient Name ALLIE BELTRÁNOLFODate of Study 11/29/2017 [id number] GenderMale Visit Number [id number] RaceUnknown [id number] m Number [id number] Number Date of Birth1955 Referring Physician Chase Wong MD Age62 year(s) Shank Tapper Graciela Mares [facility] Primo Glez [facility] Physician Procedure Type of Study TTE procedure:2DECHO W DOPPLER(CW/PW/COLOR) (Routine) Indications:Acute Chest Pain/ Suspected CAD. Clinical History PR;CAD CABG 11/29/2016 HGB 14.6 HCT 47 % Contrast Medium: Definity. Height: 73 inches Weight: 124.74 kg (275 lbs) BSA: 2.46 m^2 BMI: 36.28 kg/m^2 HR: 60 bpm BP: 131/78 mmHg Summary 1. Global LV systolic function lower limits of normal . LVEF by Campbell's method of disk assessment is lower limits of normal (50-55%) . Grade 1 diastolic dysfunction (impaired relaxation and low-normal LA pressure). 2. The right ventricle is not well visualized. Unable to estimate peak systolic PA pressure Previous Study No prior exam available for comparison. Signature Findings Technical Quality: Technically difficult exam. Rhythm/BPRegular sinus rhythm during the exam. Left Ventricle The LV apex is incompletely visualized due to fo reshortening. LV endocardium is partially visualized with IV ul trasound enhancing agent. Th e left ventricle is chamber size (by vol index) is normal (male - LVED vol - 34-74ml/m2). Se ptal motion is abnormal, likely related to prior ca rdiac surgery . Th e other segments have low normal contractility. Gl obal LV systolic function lower limits of normal . LV EF by Campbell's method of disk assessment is lo wer limits of normal (50-55%) . Gr amado 1 diastolic dysfunction (impaired relaxation an d low-normal LA pressure). Left AtriumLA is partially visualized. LA size is normal (16-34 ml/m2) . Right VentricleThe right ventricle is not well visualized. Right Atrium The RA is not well visualized. Aortic Valve AoV is partially visualized. Mi ld AoV cusp thickening. Mitral Valve Normal MV structure and function by available views an d Doppler. Tricuspid ValveTV is not well visualized; likely normal based on av ailable views and Doppler. Un able to estimate peak systolic PA pressure; in adequate TR velocity signal. Pulmonic Valve PV is not well visualized; function appears normal by Doppler visualized. AortaAortic root size (SInus of Valsalva diameter) is no rmal . PericardiumNo pericardial effusion is visualized. IVC/SVC/PA/PV/PleuralThe inferior vena cava is adequately visualized. Th e inferior vena cava size is normal . Th e estimated RA pressure by IVC dynamics 5-10mmHg . A left pleural effusion is noted. Le ft pleural effusion appears small in size. Chambers/Structures Left Atrium LA Volume: 64.77 mlLA Area: 20.5 cm^2 LA Vol. Index: 26 ml/m^2 Left Ventricle LVEDV Campbell's:105.69 ml LVESV Campbell's:48.83 ml LVEF Campbell's: 53.8 % LVEDVI: 43 ml/m^2 LVOT Diameter: 2.63 cmLVESVI: 20 ml/m^2 Aorta Ao Root S of Kim.: 4.14 cm Doppler/Quantitative Measurements Mitral Valve MV Peak E-Wave: 0.77 m/sMV Peak A-Wave: 0.75 m/s E/A Ratio: 1.02 Peak Gradient: 2.35 mmHg Deceleration Time: 178.9 msec MV Jarad. Peak: Tissue Doppler E' Lateral Velocity: 0.06 m/s A' Lateral Velocity: 0.08 m/s E/E': 11.88 Aortic Valve Peak Velocity: 0.89 m/s Mean Velocity: 0.64 m/s Peak Gradient: 3.2 mmHg Mean Gradient: 1.9 mmHg AV Area (continuity): 5.81 cm^2 AV VTI: 15.4 cm AV DVI: 1.07 LVOT Peak Velocity: 0.9 m/s Peak Gradient: 3.26 mmHg Mean Velocity: 0.6 m/s Mean Gradient: 1.69 mmHg LVOT Diameter: 2.63 cm LVOT VTI: 16.47 cm LVOT Area: 5.43 cm^2 LVOT SV:89.43 ml LVOT CO: 5.37 l/minLVOT CI: 2.18 l/min/m^2 Procedure Note Interface, External Ris In - 11/30/2017 11:42 PM USABILITY ENGINEER Transthoracic Echocardiography Report (TTE) Demographics Patient Name ARMOND BELTRÁN Date of Study 11/29/2017 Gender Male Visit Number [id number] Race Unknown Room Number 1122 Number Date of 1955 Referring Physician Chase Wong MD Age 62 year(s) Shank Tapper Graciela Mares [facility] Licensing Engineer Kelli Alcaraz, Interpreting Cherelle Langley, [facility] Physician Procedure Type of Study TTE procedure:2DECHO W DOPPLER(CW/PW/COLOR) (Routine) Indications:Acute Chest Pain/ Suspected CAD. Clinical History PR;CAD CABG 11/29/2016 HGB 14.6 HCT 47 % Contrast Medium: Definity. Height: 73 inches Weight: 124.74 kg (275 lbs) BSA: 2.46 m^2 BMI: 36.28 kg/m^2 HR: 60 bpm BP: 131/78 mmHg Summary 1. Global LV systolic function lower limits of normal . LVEF by Campbell's method of disk assessment is lower limits of normal (50-55%) . Grade 1 diastolic dysfunction (impaired relaxation and low-normal LA pressure). 2. The right ventricle is not well visualized. Unable to estimate peak systolic PA pressure Previous Study No prior exam available for comparison. Signature Findings Technical Quality: Technically difficult exam. Rhythm/BP Regular sinus rhythm during the exam. Left Ventricle The LV apex is incompletely visualized due to foreshortening. LV endocardium is partially visualized with IV ultrasound enhancing agent. The left ventricle is chamber size (by vol index) is normal (male - LVED vol - 34-74ml/m2). Septal motion is abnormal, likely related to prior cardiac surgery . The other segments have low normal contractility. Global LV systolic function lower limits of normal . LVEF by Campbell's method of disk assessment is lower limits of normal (50-55%) . Grade 1 diastolic dysfunction (impaired relaxation and low-normal LA pressure). Left Atrium LA is partially visualized. LA size is normal (16-34 ml/m2) . Right Ventricle The right ventricle is not well visualized. Right Atrium The RA is not well visualized. Aortic Valve AoV is partially visualized. Mild AoV cusp thickening. Mitral Valve Normal MV structure and function by available views and Doppler. Tricuspid Valve TV is not well visualized; likely normal based on available views and Doppler. Unable to estimate peak systolic PA pressure; inadequate TR velocity signal. Pulmonic Valve PV is not well visualized; function appears normal by Doppler visualized. Aorta Aortic root size (SInus of Valsalva diameter) is normal . Pericardium No pericardial effusion is visualized. IVC/SVC/PA/PV/Pleural The inferior vena cava is adequately visualized. The inferior vena cava size is normal . The estimated RA pressure by IVC dynamics 5-10mmHg . A left pleural effusion is noted. Left pleural effusion appears small in size. Chambers/Structures Left Atrium LA Volume: 64.77 ml LA Area: 20.5 cm^2 LA Vol. Index: 26 ml/m^2 Left Ventricle LVEDV Campbell's:105.69 ml LVESV Campbell's:48.83 ml LVEF Campbell's: 53.8 % LVEDVI: 43 ml/m^2 LVOT Diameter: 2.63 cm LVESVI: 20 ml/m^2 Aorta Ao Root S of Kim.: 4.14 cm Doppler/Quantitative Measurements Mitral Valve MV Peak E-Wave: 0.77 m/s MV Peak A-Wave: 0.75 m/s E/A Ratio: 1.02 Peak Gradient: 2.35 mmHg Deceleration Time: 178.9 msec MV Jarad. Peak: Tissue Doppler E' Lateral Velocity: 0.06 m/s A' Lateral Velocity: 0.08 m/s E/E': 11.88 Aortic Valve Peak Velocity: 0.89 m/s Mean Velocity: 0.64 m/s Peak Gradient: 3.2 mmHg Mean Gradient: 1.9 mmHg AV Area (continuity): 5.81 cm^2 AV VTI: 15.4 cm AV DVI: 1.07 LVOT Peak Velocity: 0.9 m/s Peak Gradient: 3.26 mmHg Mean Velocity: 0.6 m/s Mean Gradient: 1.69 mmHg LVOT Diameter: 2.63 cm LVOT VTI: 16.47 cm LVOT Area: 5.43 cm^2 LVOT SV:89.43 ml LVOT CO: 5.37 l/min LVOT CI: 2.18 l/min/m^2 [facility] Organization Address City/State/Zipcode Phone Number [facility]CHO [facility]ART[facility] CPACS aPTT (11/29/2017 3:42 PM USABILITY ENGINEER)Only the most recent of3 resultswithin the time period is included. PTT 31.4 22.5 - 36.0 seconds [facility] Specimen Blood Performing Organization Address [facility] Phone Number [address] [address] [phone] [place] Prothromin time/INR (11/29/2017 3:42 PM USABILITY ENGINEER)Only the most recent of3 resultswithin the time period is included. Protime 17.6 (H) 11.7 - 14.7 seconds [facility] INR 1.5 <=5.9 [facility] Specimen Blood Narrative Performed At [facility] RECOMMENDED COUMADIN/WARFARIN INR THERAPY RANGES STANDARD DOSE: 2.0 - 3.0 Includes: PROPHYLAXIS for venous thrombosis, systemic embolization; TREATMENT for venous thrombosis and/or pulmonary embolus. HIGH RISK: Target INR is 2.5-3.5 for patients with mechanical heart valves. Performing Organization Address [facility] Phone Number [address] [address] [phone] [place] Potassium-Stat Lab (11/29/2017 3:36 PM USABILITY ENGINEER)Only the most recent of5 resultswithin the time period is included. Potassium 4.2 3.6 - 5.5 meq/L [facility] Specimen Blood, Arterial Performing Organization Address [facility] Phone Number [address] [address] C[place] Sodium Na-Stat Lab (11/29/2017 3:36 PM USABILITY ENGINEER)Only the most recent of5 resultswithin the time period is included. Sodium 138 135 - 148 meq/L [facility] Specimen Blood, Arterial Performing Organization Address [facility] Phone Number [facility] [address] [address] [place] Glucose-Stat Lab (11/29/2017 3:36 PM USABILITY ENGINEER)Only the most recent of5 resultswithin the time period is included. Glucose 173 (H) 70 - 110 mg/dL [facility] Specimen Blood, Arterial Performing Organization Address [facility] Phone Number [address] [address] [place] Oxygen saturation, measured (11/29/2017 3:36 PM USABILITY ENGINEER) O2 Saturation (Measured) 64.9 % [facility] Specimen Blood Narrative Performed At From distal port of IJ central venous [facility] catheter Performing Organization Address [facility] Phone Number [address] [address] [phone] [place] HGB/HCT (H&H)-Stat Lab (11/29/2017 3:36 PM USABILITY ENGINEER)Only the most recent of5 resultswithin the time period is included. Hemoglobin 10.3 (L) 13.0 - 16.8 g/dL [facility] Hematocrit 30.0 (L) 40.0 - 50.0 % [facility] Specimen Blood, Arterial Performing Organization Address [facility] Phone Number [address] [address] [place] Lactic acid, arterial, whole blood (11/29/2017 3:36 PM USABILITY ENGINEER) Lactate, Art 1.2Comment: Specimen 0.5 - 2.2 mmol/L [facility] slightly hemolyzed [facility] Specimen Blood, Arterial Narrative Performed At [facility] Effective 02/18/2016: Units/Reference Range Change New: 0.5-2.2 mmol/LPrevious: 5-20 mg/dL Performing Organization Address [facility] Phone Number [facility] [address] [address] [place] Prepare PLT (11/29/2017 3:30 PM USABILITY ENGINEER) Unit ABO A Pos SAFETRACE TX UNIT NUMBER [id number] SAFETRACE TX Status RETURNED FROM ISSUE SAFETRACE TX Blood Bank Product PLATELETS SAFETRACE TX PRODUCT CODE [id number] SAFETRACE TX Unit ABO A Pos SAFETRACE TX UNIT NUMBER [id number] SAFETRACE TX Status RETURNED FROM ISSUE SAFETRACE TX Blood Bank Product PLATELETS SAFETRACE TX PRODUCT CODE [id number] SAFETRACE TX Performing Organization Address [facility] Phone Number SAFETRACE TX POC ACTIVATED CLOTTING TIME (11/29/2017 1:44 PM USABILITY ENGINEER)Only the most recent of4 resultswithin the time period is included. Activated Clotting Time 103Comment: TESTED AT sec [address] [address] Specimen Blood Performing Organization Address [facility] Phone Number [address] [address] [place] Thromboelastograph (TEG) (11/29/2017 1:40 PM USABILITY ENGINEER) TEG Activated Clotting Time 5.5 4.0 - 7.0 minutes [facility] TEG Fibrinogen Activity 62.6 61.0 - 73.0 degrees [facility] TEG Platelet Aggregation 52.3 (L) 55.0 - 65.0 MM [facility] TEG-H Activated Clotting Time 5.5 4.0 - 7.0 minutes [facility] TEG-H Fibrinogen Activity 65.7 61.0 - 73.0 degrees [facility] TEG-H Platelet Aggregation 56.4 55.0 - 65.0 MM [facility] Specimen Blood Performing Organization Address [facility] Phone Number [address] [phone] C[place] Fibrinogen (11/29/2017 1:40 PM USABILITY ENGINEER)Only the most recent of2 resultswithin the time period is included. Fibrinogen 176 (L) 225 - 434 mg/dl [facility] Specimen Blood Performing Organization Address City/[facility]/Zipcode Phone Number [facility] [address] [place] [address] [place] Platelet count (11/29/2017 1:40 PM USABILITY ENGINEER) Platelets 98 (L) 150 - 450 K/CU MM [facility] Specimen Blood Performing Organization Address [facility]/Zipcode Phone Number [facility] [address] [place] [address] [place] Comprehensive metabolic panel (11/29/2017 5:45 AM USABILITY ENGINEER) Protein, Total 7.9 6.0 - 8.3 gm/dL [facility] Albumin 4.0 3.5 - 5.0 g/dL [facility] Alkaline Phosphatase 71 40 - 150 U/L [facility] Total Bilirubin 0.6 0.2 - 1.2 mg/dL [facility] Sodium 140 136 - 145 meq/L [facility] Potassium 4.0 3.5 - 5.1 meq/L [facility] Chloride 103 98 - 107 meq/L [facility] CO2 26 22 - 29 meq/L [facility] BUN 14 7 - 21 mg/dL [facility] Creatinine 0.92 0.57 - 1.25 mg/dL [facility] Glucose 112 (H) 70 - 105 mg/dL [facility] Calcium 9.1 8.4 - 10.2 mg/dL [facility] AST 19 5 - 34 U/L [facility] ALT 26 6 - 55 U/L [facility] EGFR Comment: INSUFFICIENT mL/min/1.73 sq m [facility] CLINICAL DATA TO [facility] CALCULATE ESTIMATED GFR. Specimen Blood - Arm, Left Performing Organization Address [facility] Phone Number [address] [address] [place] Platelet Aggregation: Function Screen (11/28/2017 6:11 PM USABILITY ENGINEER) Weak ADP 68 60 - 91 % [facility] Plt. Function Screen 60-100% indicates [facility] Interpretation normal platelet [facility] function Pathologist: Batsheva Llamas MD [facility] (electronic [facility] signature) Platelets 176 150 - 450 K/CU MM [facility] Specimen Blood - Arm, Left Performing Organization Address [facility] Phone Number [address] [address] [place] Type and screen, automated (11/28/2017 3:41 PM USABILITY ENGINEER) ABO/RH AUTOMATED (BEAKER) O POSITIVE [facility] Ab Scrn NEGATIVE [facility] Specimen Blood Performing Organization Address [facility] Phone Number [address] [address] [phone] TSH/Free T4 If Indicated (11/28/2017 3:40 PM USABILITY ENGINEER) TSH 2.53 0.35 - 4.94 uIU/mL [facility] Specimen Blood - Arm, Right Performing Organization Address [facility] Phone Number [address] [address] [phone] [place] Phosphorus (11/28/2017 3:40 PM USABILITY ENGINEER) Phosphorus 3.0 2.3 - 4.7 mg/dL [facility] Specimen Blood - Arm, Right Performing Organization Address [facility] Phone Number [address] [phone] [place] Hepatic function panel (11/28/2017 3:40 PM USABILITY ENGINEER) Protein, Total 7.5 6.0 - 8.3 gm/dL [facility] Albumin 3.8 3.5 - 5.0 g/dL [facility] Total Bilirubin 0.4 0.2 - 1.2 mg/dL [facility] Bilirubin, Direct 0.2 0.1 - 0.5 mg/dL [facility] Alkaline Phosphatase 72 40 - 150 U/L [facility] AST 21 5 - 34 U/L [facility] ALT 22 6 - 55 U/L [facility] Specimen Blood - Arm, Right Performing Organization Address [facility] Phone Number [address] [address] [phone] [place] Lipid panel (11/28/2017 3:40 PM USABILITY ENGINEER) Triglycerides 263 mg/dL [facility] Cholesterol 143 mg/dL [facility] HDL 32 mg/dL [facility] LDL Calculated 58 mg/dL [facility] Specimen Blood - Arm, Right Narrative Performed At [facility] Triglyceride Reference Range: Low Risk <150 [id number] High Risk 200-499 Very High Risk>=500 Cholesterol Reference Range: Low Risk <200 [id number] High Risk>240 HDL Cholesterol Reference Range: Low Risk >=60 High Risk <40 LDL Cholesterol Reference Range: Optimal<100 Near [id number] Very High >=190 Performing Organization Address City/[facility] Phone Number [address] [address] [place] after 08/13/2017 Insurance Payer Benefit Plan / Subscriber ID Type Phone Address Group [employer] - MEDICARE [employer] MEDICARE HMO xxxxxxxx [phone] [address] [place] [address] Advance Directives For more information, please contact:[address] [phone] Code Status Date Activated Date Inactivated Comments Full Code 11/28/2017 3:05 PM 12/05/2017 7:49 PM This code status was determined by: Patient Full Code 11/28/2017 2:31 PM 11/28/2017 3:05 PM This code status was determined by: Patient
--- OUTSIDE RECORDS SUMMARY | 2018-08-14 08:57 | XMS REPORT ---
:1955 Author Organization [facility] Address [address] [place] [address] [address]. [address] [place] [address] Care Team Providers Name Role Phone ANGELDI Unavailable Unavailable Problems This patient has no known problems. Allergies, Adverse Reactions, Alerts This patient has no known allergies or adverse reactions. Medications This patient has no known medications. Results Test Description Test Time Test Comments Text Results Atomic Results Result Comments POCT-GLUCOSE METER 2017-12-05 12:24:00 Test Item Value Reference Range Comments POC-GLUCOSE METER (BEAKER) (test 255 mg/dL 70-110 TESTED AT [address] yroj=5554) [facility] [address] POCT-GLUCOSE [id number] 08:35:00 Test Item Value Reference Range Comments POC-GLUCOSE METER (BEAKER) 127 mg/dL 70-110 TESTED AT [address] (test tlak=5406) [facility] [address] POCT-GLUCOSE [id number] 00:25:00 Test Item Value Reference Range Comments POC-GLUCOSE METER (BEAKER) 177 mg/dL 70-110 TESTED AT [address] (test alat=1987) [facility] [address] HEMOGLOBIN [id number] 14:20:00 Test Item Value Reference Range Comments HEMOGLOBIN A1C (BEAKER) (test jyzr=434) 6.9 % 4.3-6.1 BASIC METABOLIC [id number] 07:34:00 Test Item Value Reference Range Comments SODIUM (BEAKER) (test 139 meq/L 136-145 ofxy=271) POTASSIUM (BEAKER) (test 3.9 meq/L 3.5-5.1 qwgh=507) CHLORIDE (BEAKER) (test 106 meq/L 98-107 bbxj=296) CO2 (BEAKER) (test 23 meq/L 22-29 dcib=037) BLOOD UREA NITROGEN 16 mg/dL 7-21 (BEAKER) (test dzql=889) CREATININE (BEAKER) (test 0.77 mg/dL 0.57-1.25 jjma=008) GLUCOSE RANDOM (BEAKER) 126 mg/dL 70-105 (test lrrd=965) CALCIUM (BEAKER) (test 8.4 mg/dL 8.4-10.2 vkaw=137) EGFR (BEAKER) (test mL/min/1.73 sq m INSUFFICIENT CLINICAL DATA vgcx=2261) TO CALCULATE ESTIMATED GFR. CBC W/PLT COUNT & AUTO [id number] 06:38:00 Test Item Value Reference Range Comments WHITE BLOOD CELL COUNT (BEAKER) (test twgt=207) 5.9 K/ L 3.5-10.5 RED BLOOD CELL COUNT (BEAKER) (test foyw=923) 2.75 M/ L 4.63-6.08 HEMOGLOBIN (BEAKER) (test lnsb=573) 7.6 GM/DL 13.7-17.5 HEMATOCRIT (BEAKER) (test eeez=420) 25.2 % 40.1-51.0 MEAN CORPUSCULAR VOLUME (BEAKER) (test dfvu=451) 91.6 fL 79.0-92.2 MEAN CORPUSCULAR HEMOGLOBIN (BEAKER) (test 27.6 pg 25.7-32.2 ncqq=548) MEAN CORPUSCULAR HEMOGLOBIN CONC (BEAKER) (test 30.2 GM/DL 32.3-36.5 vjha=873) RED CELL DISTRIBUTION WIDTH (BEAKER) (test 14.7 % 11.6-14.4 xogf=745) PLATELET COUNT (BEAKER) (test uksp=047) 209 K/CU MM 150-450 MEAN PLATELET VOLUME (BEAKER) (test seqw=799) 11.2 fL 9.4-12.4 NUCLEATED RED BLOOD CELLS (BEAKER) (test 0 /100 WBC 0-0 uzqe=698) NEUTROPHILS RELATIVE PERCENT (BEAKER) (test 64 % pfkr=737) LYMPHOCYTES RELATIVE PERCENT (BEAKER) (test 25 % yhmy=348) MONOCYTES RELATIVE PERCENT (BEAKER) (test 6 % cscc=239) EOSINOPHILS RELATIVE PERCENT (BEAKER) (test 4 % adhn=605) BASOPHILS RELATIVE PERCENT (BEAKER) (test 0 % lhly=657) NEUTROPHILS ABSOLUTE COUNT (BEAKER) (test 3.76 K/ L 1.78-5.38 vwmj=065) LYMPHOCYTES ABSOLUTE COUNT (BEAKER) (test 1.49 K/ L 1.32-3.57 jsoe=212) MONOCYTES ABSOLUTE COUNT (BEAKER) (test 0.35 K/ L 0.30-0.82 vaoi=217) EOSINOPHILS ABSOLUTE COUNT (BEAKER) (test 0.21 K/ L 0.04-0.54 qujh=404) BASOPHILS ABSOLUTE COUNT (BEAKER) (test 0.01 K/ L 0.01-0.08 ruzy=656) IMMATURE GRANULOCYTES-RELATIVE PERCENT (BEAKER) 1 % 0-1 (test jzii=9794) POCT-GLUCOSE [id number] 21:40:00 Test Item Value Reference Range Comments POC-GLUCOSE METER (BEAKER) 171 mg/dL 70-110 TESTED AT [address] (test ilcc=0754) [place] [address] POCT-GLUCOSE [id number] 18:53:00 Test Item Value Reference Range Comments POC-GLUCOSE METER (BEAKER) 136 mg/dL 70-110 TESTED AT [address] (test uxsp=2049) [place] [address] BASIC METABOLIC [id number] 05:58:00 Test Item Value Reference Range Comments SODIUM (BEAKER) (test 139 meq/L 136-145 wqos=103) POTASSIUM (BEAKER) (test 4.3 meq/L 3.5-5.1 fmzx=476) CHLORIDE (BEAKER) (test 106 meq/L 98-107 dlom=641) CO2 (BEAKER) (test 25 meq/L 22-29 bndb=128) BLOOD UREA NITROGEN 19 mg/dL 7-21 (BEAKER) (test gpsg=715) CREATININE (BEAKER) (test 0.74 mg/dL 0.57-1.25 fprj=942) GLUCOSE RANDOM (BEAKER) 132 mg/dL 70-105 (test utiu=292) CALCIUM (BEAKER) (test 8.3 mg/dL 8.4-10.2 acef=140) EGFR (BEAKER) (test mL/min/1.73 sq m INSUFFICIENT CLINICAL DATA nlxw=0625) TO CALCULATE ESTIMATED GFR. [id number] 05:57:00 Test Item Value Reference Range Comments MAGNESIUM (BEAKER) (test hgrh=878) 1.9 mg/dL 1.6-2.6 CBC W/PLT COUNT & AUTO [id number] 05:11:00 Test Item Value Reference Range Comments WHITE BLOOD CELL COUNT (BEAKER) (test tref=398) 7.4 K/ L 3.5-10.5 RED BLOOD CELL COUNT (BEAKER) (test tmgb=981) 2.76 M/ L 4.63-6.08 HEMOGLOBIN (BEAKER) (test pdgu=238) 7.7 GM/DL 13.7-17.5 HEMATOCRIT (BEAKER) (test nhco=949) 24.4 % 40.1-51.0 MEAN CORPUSCULAR VOLUME (BEAKER) (test wqrc=268) 88.4 fL 79.0-92.2 MEAN CORPUSCULAR HEMOGLOBIN (BEAKER) (test 27.9 pg 25.7-32.2 fvki=310) MEAN CORPUSCULAR HEMOGLOBIN CONC (BEAKER) (test 31.6 GM/DL 32.3-36.5 ttjz=345) RED CELL DISTRIBUTION WIDTH (BEAKER) (test 14.3 % 11.6-14.4 ubvu=187) PLATELET COUNT (BEAKER) (test vrjr=557) 162 K/CU MM 150-450 MEAN PLATELET VOLUME (BEAKER) (test cgeh=673) 11.4 fL 9.4-12.4 NUCLEATED RED BLOOD CELLS (BEAKER) (test 0 /100 WBC 0-0 ebll=918) NEUTROPHILS RELATIVE PERCENT (BEAKER) (test 68 % ngbf=832) LYMPHOCYTES RELATIVE PERCENT (BEAKER) (test 22 % guaz=140) MONOCYTES RELATIVE PERCENT (BEAKER) (test 7 % kojs=713) EOSINOPHILS RELATIVE PERCENT (BEAKER) (test 3 % zrbs=705) BASOPHILS RELATIVE PERCENT (BEAKER) (test 0 % vywo=758) NEUTROPHILS ABSOLUTE COUNT (BEAKER) (test 5.05 K/ L 1.78-5.38 mbht=302) LYMPHOCYTES ABSOLUTE COUNT (BEAKER) (test 1.62 K/ L 1.32-3.57 burn=959) MONOCYTES ABSOLUTE COUNT (BEAKER) (test 0.49 K/ L 0.30-0.82 gnud=587) EOSINOPHILS ABSOLUTE COUNT (BEAKER) (test 0.22 K/ L 0.04-0.54 owcy=653) BASOPHILS ABSOLUTE COUNT (BEAKER) (test 0.01 K/ L 0.01-0.08 ysdg=060) IMMATURE GRANULOCYTES-RELATIVE PERCENT (BEAKER) 0 % 0-1 (test dlpl=8089) POCT-GLUCOSE [id number] 21:45:00 Test Item Value Reference Range Comments POC-GLUCOSE METER (BEAKER) 177 mg/dL 70-110 TESTED AT [address] (test bwbc=7681) [facility] [address] POCT-GLUCOSE [id number] 18:49:00 Test Item Value Reference Range Comments POC-GLUCOSE METER (BEAKER) 216 mg/dL 70-110 TESTED AT [address] (test vqzv=0064) [facility] [address] POCT-GLUCOSE [id number] 09:56:00 Test Item Value Reference Range Comments POC-GLUCOSE METER (BEAKER) 202 mg/dL 70-110 TESTED AT [address] (test liow=4811) [facility] [address] [id number] 09:37:00 Test Item Value Reference Range Comments PROTIME (BEAKER) (test lenn=883) 14.5 seconds 11.7-14.7 INR (BEAKER) (test uili=581) 1.1 <=5.9 PARTIAL THROMBOPLASTIN TIME (BEAKER) (test 32.4 seconds 22.5-36.0 cvzd=472) RECOMMENDED COUMADIN/WARFARIN INR THERAPY RANGESSTANDARD DOSE: 2.0 - 3.0 Includes: PROPHYLAXIS forvenous thrombosis, systemic embolization; TREATMENT for venous thrombosis and/or pulmonary embolus.HIGH RISK: Target INR is 2.5-3.5 for patients with mechanical heart valves.BASIC METABOLIC [id number] 09:24: 00 Test Item Value Reference Range Comments SODIUM (BEAKER) (test 138 meq/L 136-145 nbcq=451) POTASSIUM (BEAKER) (test 3.7 meq/L 3.5-5.1 wmod=081) CHLORIDE (BEAKER) (test 103 meq/L 98-107 rfqm=852) CO2 (BEAKER) (test 27 meq/L 22-29 kgzt=100) BLOOD UREA NITROGEN 17 mg/dL 7-21 (BEAKER) (test qtdo=721) CREATININE (BEAKER) (test 0.80 mg/dL 0.57-1.25 peok=479) GLUCOSE RANDOM (BEAKER) 162 mg/dL 70-105 (test iory=462) CALCIUM (BEAKER) (test 8.7 mg/dL 8.4-10.2 lzrv=736) EGFR (BEAKER) (test mL/min/1.73 sq m INSUFFICIENT CLINICAL DATA trdr=6352) TO CALCULATE ESTIMATED GFR. [id number] 09:16:00 Test Item Value Reference Range Comments MAGNESIUM (BEAKER) (test clzc=607) 1.8 mg/dL 1.6-2.6 CBC W/PLT COUNT & AUTO [id number] 08:53:00 Test Item Value Reference Range Comments WHITE BLOOD CELL COUNT (BEAKER) (test hqob=550) 8.5 K/ L 3.5-10.5 RED BLOOD CELL COUNT (BEAKER) (test eahc=038) 2.85 M/ L 4.63-6.08 HEMOGLOBIN (BEAKER) (test kgio=049) 8.0 GM/DL 13.7-17.5 HEMATOCRIT (BEAKER) (test qmyj=693) 25.2 % 40.1-51.0 MEAN CORPUSCULAR VOLUME (BEAKER) (test teqn=333) 88.4 fL 79.0-92.2 MEAN CORPUSCULAR HEMOGLOBIN (BEAKER) (test 28.1 pg 25.7-32.2 rqdc=120) MEAN CORPUSCULAR HEMOGLOBIN CONC (BEAKER) (test 31.7 GM/DL 32.3-36.5 aach=126) RED CELL DISTRIBUTION WIDTH (BEAKER) (test 14.1 % 11.6-14.4 tlgb=339) PLATELET COUNT (BEAKER) (test fcyc=830) 140 K/CU MM 150-450 MEAN PLATELET VOLUME (BEAKER) (test aqdx=102) 11.5 fL 9.4-12.4 NUCLEATED RED BLOOD CELLS (BEAKER) (test 0 /100 WBC 0-0 aqgw=745) NEUTROPHILS RELATIVE PERCENT (BEAKER) (test 67 % tngt=149) LYMPHOCYTES RELATIVE PERCENT (BEAKER) (test 24 % clpg=446) MONOCYTES RELATIVE PERCENT (BEAKER) (test 7 % shvo=061) EOSINOPHILS RELATIVE PERCENT (BEAKER) (test 2 % oxnq=737) BASOPHILS RELATIVE PERCENT (BEAKER) (test 0 % tebp=193) NEUTROPHILS ABSOLUTE COUNT (BEAKER) (test 5.67 K/ L 1.78-5.38 qsqb=527) LYMPHOCYTES ABSOLUTE COUNT (BEAKER) (test 2.08 K/ L 1.32-3.57 foww=154) MONOCYTES ABSOLUTE COUNT (BEAKER) (test 0.58 K/ L 0.30-0.82 cdmc=399) EOSINOPHILS ABSOLUTE COUNT (BEAKER) (test 0.14 K/ L 0.04-0.54 auxx=614) BASOPHILS ABSOLUTE COUNT (BEAKER) (test 0.01 K/ L 0.01-0.08 rvzt=791) IMMATURE GRANULOCYTES-RELATIVE PERCENT (BEAKER) 0 % 0-1 (test zodq=3297) POCT-GLUCOSE [id number] 21:32:00 Test Item Value Reference Range Comments POC-GLUCOSE METER (BEAKER) 200 mg/dL 70-110 TESTED AT [address] (test gweb=2636) [place] [address] POCT-GLUCOSE [id number] 17:42:00 Test Item Value Reference Range Comments POC-GLUCOSE METER (BEAKER) 191 mg/dL 70-110 TESTED AT [address] (test tcdl=4972) [place] [address] HEMOGLOBIN AND [id number] 15:51:00 Test Item Value Reference Range Comments HEMOGLOBIN (BEAKER) (test zaql=091) 7.4 GM/DL 13.7-17.5 HEMATOCRIT (BEAKER) (test uahz=267) 23.9 % 40.1-51.0 POCT-GLUCOSE [id number] 13:02:00 Test Item Value Reference Range Comments POC-GLUCOSE METER (BEAKER) 190 mg/dL 70-110 TESTED AT [address] (test dbdx=6255) [place] [address] POCT-GLUCOSE [id number] 08:10:00 Test Item Value Reference Range Comments POC-GLUCOSE METER (BEAKER) 176 mg/dL 70-110 TESTED AT [address] (test dkui=3579) [place] [address] RAD, CHEST, 1 VIEW, NON [id number] 07:47:00Reason for exam:->pl effusionShould this be performed at the bedside?->YesFINAL REPORT Chest one view compared to November 30 Discussion: Mild pulmonary congestion and probable left lower lung atelectasis. I could not exclude small left effusion. No pneumothorax. IMPRESSIONS: Similar cardiopulmonary appearance. Signed: Atul Mcdonough Verified Date/Time: 12/01/2017 07:47: 00 Reading Location: [facility] Radiology Reading Room BASIC METABOLIC [id number] 05:25:00 Test Item Value Reference Range Comments SODIUM (BEAKER) (test 138 meq/L 136-145 rxpc=653) POTASSIUM (BEAKER) (test 3.9 meq/L 3.5-5.1 gfzs=568) CHLORIDE (BEAKER) (test 106 meq/L 98-107 cagx=648) CO2 (BEAKER) (test 26 meq/L 22-29 lckb=380) BLOOD UREA NITROGEN 13 mg/dL 7-21 (BEAKER) (test ldib=924) CREATININE (BEAKER) (test 0.75 mg/dL 0.57-1.25 tetg=418) GLUCOSE RANDOM (BEAKER) 157 mg/dL 70-105 (test tibb=321) CALCIUM (BEAKER) (test 8.2 mg/dL 8.4-10.2 cslz=039) EGFR (BEAKER) (test mL/min/1.73 sq m INSUFFICIENT CLINICAL DATA blqc=0822) TO CALCULATE ESTIMATED GFR. [id number] 05:18:00 Test Item Value Reference Range Comments MAGNESIUM (BEAKER) (test wrvm=061) 1.8 mg/dL 1.6-2.6 CBC W/PLT COUNT & AUTO [id number] 04:59:00 Test Item Value Reference Range Comments WHITE BLOOD CELL COUNT (BEAKER) (test bbdr=744) 7.8 K/ L 3.5-10.5 RED BLOOD CELL COUNT (BEAKER) (test eaeu=878) 2.55 M/ L 4.63-6.08 HEMOGLOBIN (BEAKER) (test aftl=202) 7.1 GM/DL 13.7-17.5 HEMATOCRIT (BEAKER) (test vkoz=529) 22.5 % 40.1-51.0 MEAN CORPUSCULAR VOLUME (BEAKER) (test uvvh=699) 88.2 fL 79.0-92.2 MEAN CORPUSCULAR HEMOGLOBIN (BEAKER) (test 27.8 pg 25.7-32.2 eqzx=045) MEAN CORPUSCULAR HEMOGLOBIN CONC (BEAKER) (test 31.6 GM/DL 32.3-36.5 rpqa=857) RED CELL DISTRIBUTION WIDTH (BEAKER) (test 14.2 % 11.6-14.4 uxhm=061) PLATELET COUNT (BEAKER) (test duah=044) 113 K/CU MM 150-450 MEAN PLATELET VOLUME (BEAKER) (test gqdq=879) 11.9 fL 9.4-12.4 NUCLEATED RED BLOOD CELLS (BEAKER) (test 0 /100 WBC 0-0 dswk=207) NEUTROPHILS RELATIVE PERCENT (BEAKER) (test 72 % qfim=025) LYMPHOCYTES RELATIVE PERCENT (BEAKER) (test 18 % bcof=787) MONOCYTES RELATIVE PERCENT (BEAKER) (test 9 % ezhy=877) EOSINOPHILS RELATIVE PERCENT (BEAKER) (test 1 % wgbn=192) BASOPHILS RELATIVE PERCENT (BEAKER) (test 0 % kltc=433) NEUTROPHILS ABSOLUTE COUNT (BEAKER) (test 5.64 K/ L 1.78-5.38 svde=242) LYMPHOCYTES ABSOLUTE COUNT (BEAKER) (test 1.36 K/ L 1.32-3.57 jhst=506) MONOCYTES ABSOLUTE COUNT (BEAKER) (test 0.70 K/ L 0.30-0.82 afdj=779) EOSINOPHILS ABSOLUTE COUNT (BEAKER) (test 0.05 K/ L 0.04-0.54 dqqj=259) BASOPHILS ABSOLUTE COUNT (BEAKER) (test 0.01 K/ L 0.01-0.08 damr=501) IMMATURE GRANULOCYTES-RELATIVE PERCENT (BEAKER) 0 % 0-1 (test glki=2958) POCT-GLUCOSE [id number] 22:11:00 Test Item Value Reference Range Comments POC-GLUCOSE METER (BEAKER) 190 mg/dL 70-110 TESTED AT [address] (test qfiu=1492) [facility] [address] POCT-GLUCOSE [id number] 16:58:00 Test Item Value Reference Range Comments POC-GLUCOSE METER (BEAKER) 193 mg/dL 70-110 TESTED AT [address] (test rzfr=3839) [place] [id number] CBC (HEMOGRAM ONLY)2017-11-30 13:05:00 Test Item Value Reference Range Comments WHITE BLOOD CELL COUNT (BEAKER) (test cofw=791) 9.1 K/ L 3.5-10.5 RED BLOOD CELL COUNT (BEAKER) (test injr=112) 3.01 M/ L 4.63-6.08 HEMOGLOBIN (BEAKER) (test ziqe=736) 8.3 GM/DL 13.7-17.5 HEMATOCRIT (BEAKER) (test wgtt=685) 26.5 % 40.1-51.0 MEAN CORPUSCULAR VOLUME (BEAKER) (test lrhd=774) 88.0 fL 79.0-92.2 MEAN CORPUSCULAR HEMOGLOBIN (BEAKER) (test 27.6 pg 25.7-32.2 wwhg=099) MEAN CORPUSCULAR HEMOGLOBIN CONC (BEAKER) (test 31.3 GM/DL 32.3-36.5 hnfv=789) RED CELL DISTRIBUTION WIDTH (BEAKER) (test 14.1 % 11.6-14.4 mzkq=248) PLATELET COUNT (BEAKER) (test vrrl=454) 128 K/CU MM 150-450 MEAN PLATELET VOLUME (BEAKER) (test wwzh=829) 11.8 fL 9.4-12.4 NUCLEATED RED BLOOD CELLS (BEAKER) (test 0 /100 WBC 0-0 ynhh=261) POCT-GLUCOSE [id number] 12:06:00 Test Item Value Reference Range Comments POC-GLUCOSE METER (BEAKER) 142 mg/dL 70-110 TESTED AT [address] (test xinn=2256) [place] [address] POCT-GLUCOSE [id number] 09:23:00 Test Item Value Reference Range Comments POC-GLUCOSE METER (BEAKER) 108 mg/dL 70-110 TESTED AT [address] (test yxxv=8681) [place] [address] [id number] 05:44:00 Test Item Value Reference Range Comments ACTIVATED CLOTTING TIME 103 sec TESTED AT [address] (BEAKER) (test mqtu=650) [place] [address] [id number] 05:44:00 Test Item Value Reference Range Comments ACTIVATED CLOTTING TIME 439 sec TESTED AT [address] ([facility]) (test igzo=072) [place] [id number] 05:44:00 Test Item Value Reference Range Comments ACTIVATED CLOTTING TIME 604 sec TESTED AT [address] ([facility]) (test tgsw=441) [place] [address] [id number] 05:44:00 Test Item Value Reference Range Comments ACTIVATED CLOTTING TIME 444 sec TESTED AT [address] ([facility]) (test vbst=147) [place] [address] POCT-GLUCOSE [id number] 04:45:00 Test Item Value Reference Range Comments POC-GLUCOSE METER ([facility]) 122 mg/dL 70-110 TESTED AT [address] (test jjqi=3376) [place] [address] RAD, CHEST, 1 VIEW, NON [id number] 04:40:00while patient is intubated or has chest tubes.Reason for exam:->intubated; chest tubeShould this be performed at the bedside?->YesFINAL REPORT RAD, CHEST , 1 VIEW, NON DEPT INDICATION: intubated; chest tube COMPARISON: Prior day's exam FINDINGS: Portable frontal view of the chest. IMPRESSION: Support Lines : Interval extubation and removal of enteric tube. Remaining support hardware is stable. Lungs and pleura: Underinflated lungs resulting in central vascular crowding and mild interstitial prominence. Small left effusion. No pneumothorax.Heart and mediastinum: Stable contours. Stable surgical changes.Additional findings: None. Signed: JR Scanlon Robert MDReport Verified Date/Time: 11/30/2017 04:40:05 Reading Location: [address] Reading Room Electronically signed by: CHRISTINA ARAIZA on 04:40 AMCBC W/PLT COUNT & AUTO [id number] 03:49:00 Test Item Value Reference Range Comments WHITE BLOOD CELL COUNT ([facility]) (test oxti=650) 7.6 K/ L 3.5-10.5 RED BLOOD CELL COUNT ([facility]) (test shkj=480) 3.09 M/ L 4.63-6.08 HEMOGLOBIN (BEAKER) (test apjm=113) 8.5 GM/DL 13.7-17.5 HEMATOCRIT (BEAKER) (test nrmz=540) 27.4 % 40.1-51.0 MEAN CORPUSCULAR VOLUME (BEAKER) (test eapv=120) 88.7 fL 79.0-92.2 MEAN CORPUSCULAR HEMOGLOBIN (BEAKER) (test 27.5 pg 25.7-32.2 iyhv=193) MEAN CORPUSCULAR HEMOGLOBIN CONC (BEAKER) (test 31.0 GM/DL 32.3-36.5 pipk=025) RED CELL DISTRIBUTION WIDTH (BEAKER) (test 14.2 % 11.6-14.4 jxwm=448) PLATELET COUNT (BEAKER) (test rnkg=432) 123 K/CU MM 150-450 MEAN PLATELET VOLUME (BEAKER) (test twmz=279) 11.3 fL 9.4-12.4 NUCLEATED RED BLOOD CELLS (BEAKER) (test 0 /100 WBC 0-0 axxj=238) NEUTROPHILS RELATIVE PERCENT (BEAKER) (test 84 % icys=358) LYMPHOCYTES RELATIVE PERCENT (BEAKER) (test 9 % ozbc=470) MONOCYTES RELATIVE PERCENT (BEAKER) (test 6 % mlgp=586) EOSINOPHILS RELATIVE PERCENT (BEAKER) (test 0 % onvr=396) BASOPHILS RELATIVE PERCENT (BEAKER) (test 0 % qjth=575) NEUTROPHILS ABSOLUTE COUNT (BEAKER) (test 6.44 K/ L 1.78-5.38 wmvx=397) LYMPHOCYTES ABSOLUTE COUNT (BEAKER) (test 0.65 K/ L 1.32-3.57 mgvw=470) MONOCYTES ABSOLUTE COUNT (BEAKER) (test 0.49 K/ L 0.30-0.82 tgmi=087) EOSINOPHILS ABSOLUTE COUNT (BEAKER) (test 0.01 K/ L 0.04-0.54 ckxm=834) BASOPHILS ABSOLUTE COUNT (BEAKER) (test 0.01 K/ L 0.01-0.08 ykfh=597) IMMATURE GRANULOCYTES-RELATIVE PERCENT (BEAKER) 1 % 0-1 (test ytqh=7754) BASIC METABOLIC [id number] 03:49:00 Test Item Value Reference Range Comments SODIUM (BEAKER) (test 141 meq/L 136-145 emmu=517) POTASSIUM (BEAKER) (test 4.0 meq/L 3.5-5.1 rcpl=190) CHLORIDE (BEAKER) (test 110 meq/L 98-107 dguf=309) CO2 (BEAKER) (test 24 meq/L 22-29 ezci=936) BLOOD UREA NITROGEN 10 mg/dL 7-21 (BEAKER) (test abap=070) CREATININE (BEAKER) (test 0.71 mg/dL 0.57-1.25 sqht=676) GLUCOSE RANDOM (BEAKER) 147 mg/dL 70-105 (test jkad=251) CALCIUM (BEAKER) (test 7.8 mg/dL 8.4-10.2 bvrw=947) EGFR (BEAKER) (test mL/min/1.73 sq m INSUFFICIENT CLINICAL DATA lwal=6742) TO CALCULATE ESTIMATED GFR. [id number] 03:42:00 Test Item Value Reference Range Comments MAGNESIUM (BEAKER) (test aaoz=220) 1.9 mg/dL 1.6-2.6 POCT-GLUCOSE [id number] 03:04:00 Test Item Value Reference Range Comments POC-GLUCOSE METER (BEAKER) 143 mg/dL 70-110 TESTED AT [address] (test dzwv=8796) [place] [id number] POCT-GLUCOSE [id number] 02:04:00 Test Item Value Reference Range Comments POC-GLUCOSE METER (BEAKER) 146 mg/dL 70-110 TESTED AT [address] (test nmfn=7943) [place] [id number] POCT-GLUCOSE [id number] 01:04:00 Test Item Value Reference Range Comments POC-GLUCOSE METER (BEAKER) 203 mg/dL 70-110 TESTED AT [address] (test hzsi=0644) [place] [address] [id number] 01:03:00 Test Item Value Reference Range Comments POTASSIUM (BEAKER) (test wfod=967) 4.3 meq/L 3.5-5.1 [id number] 01:03:00 Test Item Value Reference Range Comments MAGNESIUM (BEAKER) (test bxuj=444) 2.1 mg/dL 1.6-2.6 CALCIUM, [id number] 00:29:00 Test Item Value Reference Range Comments CALCIUM IONIZED (BEAKER) (test zppu=982) 1.08 mmol/L 1.12-1.27 PH, BLOOD (BEAKER) (test zxpp=3695) 7.39 POCT-GLUCOSE [id number] 00:09:00 Test Item Value Reference Range Comments POC-GLUCOSE METER (BEAKER) 214 mg/dL 70-110 TESTED AT [address] (test ipfd=9546) [place] [id number] POCT-GLUCOSE [id number] 22:51:00 Test Item Value Reference Range Comments POC-GLUCOSE METER (BEAKER) 179 mg/dL 70-110 TESTED AT [address] (test pfuz=1624) [place] [id number] POCT-GLUCOSE [id number] 22:13:00 Test Item Value Reference Range Comments POC-GLUCOSE METER (BEAKER) 206 mg/dL 70-110 TESTED AT [address] (test pqsa=0455) [place] [id number] BLOOD GAS, [id number] 21:08:00 Test Item Value Reference Range Comments PH ARTERIAL (BEAKER) (test mxif=406) 7.35 7.35-7.45 PCO2 ARTERIAL (BEAKER) (test rnux=031) 43 mmHg 35-45 PO2 ARTERIAL (BEAKER) (test vuel=206) 136 mmHg 80-90 O2 SATURATION ARTERIAL (BEAKER) (test qiaz=713) 98.6 % 96.0-97.0 HCO3 ARTERIAL (BEAKER) (test narn=719) 23 mmol/L 21-29 BASE EXCESS ARTERIAL (BEAKER) (test geuu=927) -2.1 mmol/L -2.0-3.0 PATIENT TEMPERATURE (BEAKER) (test ugfc=6491) 37.1 C FIO2 (BEAKER) (test igfq=2284) 36.0 % Post extubation ABGPOCT-GLUCOSE [id number] 21:03:00 Test Item Value Reference Range Comments POC-GLUCOSE METER (BEAKER) 197 mg/dL 70-110 TESTED AT [address] (test wdzk=1772) [place] [id number] POCT-GLUCOSE [id number] 20:47:00 Test Item Value Reference Range Comments POC-GLUCOSE METER (BEAKER) 197 mg/dL 70-110 TESTED AT [address] (test pqkv=6425) [place] [address] [id number] 20:10:00 Test Item Value Reference Range Comments MAGNESIUM (BEAKER) (test kgjq=393) 2.3 mg/dL 1.6-2.6 Check Serum Magnesium level 2 hours after IV magnesium replacement.POCT-GLUCOSE [id number] 20:02:00 Test Item Value Reference Range Comments POC-GLUCOSE METER (BEAKER) 234 mg/dL 70-110 TESTED AT [address] (test ekpp=0838) [place] [address] BLOOD GAS, [id number] 19:57:00 Test Item Value Reference Range Comments PH ARTERIAL (BEAKER) (test pzjd=374) 7.36 7.35-7.45 PCO2 ARTERIAL (BEAKER) (test kems=855) 41 mmHg 35-45 PO2 ARTERIAL (BEAKER) (test azig=918) 121 mmHg 80-90 O2 SATURATION ARTERIAL (BEAKER) (test kjit=442) 98.2 % 96.0-97.0 HCO3 ARTERIAL (BEAKER) (test fbjk=066) 23 mmol/L 21-29 BASE EXCESS ARTERIAL (BEAKER) (test ulwe=717) -2.7 mmol/L -2.0-3.0 PATIENT TEMPERATURE (BEAKER) (test rsqj=0036) 37.2 C FIO2 (BEAKER) (test pkyv=5641) 40.0 % POCT-GLUCOSE [id number] 18:44:00 Test Item Value Reference Range Comments POC-GLUCOSE METER (BEAKER) 209 mg/dL 70-110 TESTED AT [address] (test pdrj=2045) [place] [address] BASIC METABOLIC [id number] 16:13:00 Test Item Value Reference Range Comments SODIUM (BEAKER) (test 141 meq/L 136-145 wgxv=293) POTASSIUM (BEAKER) (test 4.4 meq/L 3.5-5.1 Specimen slightly bnfh=165) hemolyzed CHLORIDE (BEAKER) (test 112 meq/L 98-107 vkok=498) CO2 (BEAKER) (test 22 meq/L 22-29 jrai=171) BLOOD UREA NITROGEN 13 mg/dL 7-21 (BEAKER) (test fbfc=447) CREATININE (BEAKER) (test 0.73 mg/dL 0.57-1.25 Specimen slightly mhjf=875) hemolyzed GLUCOSE RANDOM (BEAKER) 179 mg/dL 70-105 (test igfb=938) CALCIUM (BEAKER) (test 7.5 mg/dL 8.4-10.2 lfel=471) EGFR (BEAKER) (test mL/min/1.73 sq m INSUFFICIENT CLINICAL DATA poml=6107) TO CALCULATE ESTIMATED GFR. RAD, CHEST, 1 VIEW, NON [id number] 16:13:00Reason for exam:->intubated, chest tubesShould this be performed at the bedside?->YesFINAL REPORT TECHNIQUE: Frontal chest radiograph dated 11/29/2017. CLINICAL HISTORY: Intubated, chest tubes COMPARISON STUDY: Chest radiograph performed earlier the same day. IMPRESSION:Endotracheal tube is approximately 5 cm above the lore. Enteric tube is seen with the tip in the region of the gastric fundus. Right internal jugular venous catheter tip projects over the region of the superior vena cava. Left-sided chest tube and mediastinal drains are in. Small amount of left lung base atelectasis is present. No pleural effusion or pneumothorax. Cardiomediastinal silhouette is normal in size. No pulmonary edema. Midline sternotomy wires are intact and well aligned. Degenerative changes are seen in the spine. Signed: Negra White Verified Date /Time: 11/29/2017 16:13:26 Reading Location: [facility] Radiology Reading Room [id number] 16:12:00 Test Item Value Reference Range Comments PARTIAL THROMBOPLASTIN TIME (BEAKER) (test 31.4 seconds 22.5-36.0 jtwf=062) PROTHROMBIN TIME/[id number] 16:11:00 Test Item Value Reference Range Comments PROTIME (BEAKER) (test bqvz=592) 17.6 seconds 11.7-14.7 INR (BEAKER) (test sjbr=723) 1.5 <=5.9 RECOMMENDED COUMADIN/WARFARIN INR THERAPY RANGESSTANDARD DOSE: 2.0 - 3.0 Includes: PROPHYLAXIS forvenous thrombosis, systemic embolization; TREATMENT for venous thrombosis and/or pulmonary embolus.HIGH RISK: Target INR is 2.5-3.5 for patients with mechanical heart valves.[id number] 16:11:00 Test Item Value Reference Range Comments MAGNESIUM (BEAKER) (test 1.7 mg/dL 1.6-2.6 Specimen slightly hemolyzed doms=337) LACTIC ACID, ARTERIAL, WHOLE [id number] 16:06:00 Test Item Value Reference Range Comments LACTATE BLOOD ARTERIAL (2) 1.2 mmol/L 0.5-2.2 Specimen slightly hemolyzed (BEAKER) (test lrtn=3670) Effective 02/18/2016: Units/Reference Range ChangeNew: 0.5-2.2 mmol/L Previous: 5 -20 mg/dLCBC W/PLT COUNT & AUTO [id number] 16:02:00 Test Item Value Reference Range Comments WHITE BLOOD CELL COUNT (BEAKER) (test voob=362) 11.5 K/ L 3.5-10.5 RED BLOOD CELL COUNT (BEAKER) (test vxqb=573) 3.42 M/ L 4.63-6.08 HEMOGLOBIN (BEAKER) (test ojtv=665) 9.6 GM/DL 13.7-17.5 HEMATOCRIT (BEAKER) (test mlmd=785) 30.6 % 40.1-51.0 MEAN CORPUSCULAR VOLUME (BEAKER) (test dikj=736) 89.5 fL 79.0-92.2 MEAN CORPUSCULAR HEMOGLOBIN (BEAKER) (test 28.1 pg 25.7-32.2 yhxc=639) MEAN CORPUSCULAR HEMOGLOBIN CONC (BEAKER) (test 31.4 GM/DL 32.3-36.5 kxny=388) RED CELL DISTRIBUTION WIDTH (BEAKER) (test 14.0 % 11.6-14.4 sqxr=528) PLATELET COUNT (BEAKER) (test lggo=305) 100 K/CU MM 150-450 MEAN PLATELET VOLUME (BEAKER) (test qwgh=322) 10.7 fL 9.4-12.4 NUCLEATED RED BLOOD CELLS (BEAKER) (test 0 /100 WBC 0-0 xhdl=568) NEUTROPHILS RELATIVE PERCENT (BEAKER) (test 80 % aabg=177) LYMPHOCYTES RELATIVE PERCENT (BEAKER) (test 11 % buca=281) MONOCYTES RELATIVE PERCENT (BEAKER) (test 8 % lrlz=580) EOSINOPHILS RELATIVE PERCENT (BEAKER) (test 0 % ibrc=252) BASOPHILS RELATIVE PERCENT (BEAKER) (test 0 % aegz=577) NEUTROPHILS ABSOLUTE COUNT (BEAKER) (test 9.14 K/ L 1.78-5.38 thqt=588) LYMPHOCYTES ABSOLUTE COUNT (BEAKER) (test 1.25 K/ L 1.32-3.57 bhiw=650) MONOCYTES ABSOLUTE COUNT (BEAKER) (test 0.93 K/ L 0.30-0.82 cnlg=163) EOSINOPHILS ABSOLUTE COUNT (BEAKER) (test 0.05 K/ L 0.04-0.54 gkyg=868) BASOPHILS ABSOLUTE COUNT (BEAKER) (test 0.02 K/ L 0.01-0.08 hlye=635) IMMATURE GRANULOCYTES-RELATIVE PERCENT (BEAKER) 1 % 0-1 (test xjlb=5387) OXYGEN SATURATION, [id number] 15:54:00 Test Item Value Reference Range Comments O2 SATURATION (MEASURED) (BEAKER) (test yilc=2525) 64.9 % From distal port of IJ central venous catheterSODIUM NA-STAT [id number] 15:54 :00 Test Item Value Reference Range Comments SODIUM (BEAKER) (test lksh=278) 138 meq/L 135-148 POTASSIUM-STAT [id number] 15:54:00 Test Item Value Reference Range Comments POTASSIUM (BEAKER) (test jmxq=412) 4.2 meq/L 3.6-5.5 BLOOD GAS, [id number] 15:54:00 Test Item Value Reference Range Comments PH ARTERIAL (BEAKER) (test fxru=456) 7.33 7.35-7.45 PCO2 ARTERIAL (BEAKER) (test ddwy=194) 46 mmHg 35-45 PO2 ARTERIAL (BEAKER) (test uubr=297) 155 mmHg 80-90 O2 SATURATION ARTERIAL (BEAKER) (test somq=472) 98.9 % 96.0-97.0 HCO3 ARTERIAL (BEAKER) (test fnup=643) 24 mmol/L 21-29 BASE EXCESS ARTERIAL (BEAKER) (test pvvt=848) -2.4 mmol/L -2.0-3.0 PATIENT TEMPERATURE (BEAKER) (test grck=7606) 35.4 C FIO2 (BEAKER) (test pvwo=8815) 60.0 % CALCIUM, [id number] 15:54:00 Test Item Value Reference Range Comments CALCIUM IONIZED (BEAKER) (test hipl=926) 1.06 mmol/L 1.12-1.27 PH, BLOOD (BEAKER) (test nujy=1703) 7.31 GLUCOSE-STAT [id number] 15:54:00 Test Item Value Reference Range Comments GLUCOSE RANDOM (BEAKER) (test scbr=282) 173 mg/dL 70-110 HGB/HCT (H&H) - STAT [id number] 15:54:00 Test Item Value Reference Range Comments HEMOGLOBIN (BEAKER) (test abgv=395) 10.3 g/dL 13.0-16.8 HEMATOCRIT (BEAKER) (test akgy=473) 30.0 % 40.0-50.0 THROMBOELASTOGRAPH (TEG)[id number] 15:16:00 Test Item Value Reference Range Comments TEG ACTIVATED CLOTTING TIME (BEAKER) (test 5.5 minutes 4.0-7.0 bkbw=5563) TEG FIBRINOGEN ACTIVITY (BEAKER) (test 62.6 degrees 61.0-73.0 dhxv=7317) TEG PLT. AGGREGATION (BEAKER) (test ztrp=3482) 52.3 MM 55.0-65.0 TGH ACTIVATED CLOTTING TIME (BEAKER) (test 5.5 minutes 4.0-7.0 aaeh=8598) TGH FIBRINOGEN ACTIVITY (BEAKER) (test 65.7 degrees 61.0-73.0 hhyw=2608) TGH PLT. AGGREGATION (BEAKER) (test gmac=8464) 56.4 MM 55.0-65.0 PLATELET [id number] 14:50:00 Test Item Value Reference Range Comments PLATELET COUNT (BEAKER) (test yywf=470) 98 K/CU MM 150-450 [id number] 14:27:00 Test Item Value Reference Range Comments FIBRINOGEN LEVEL (BEAKER) (test sjdl=512) 176 mg/dl 225-434 PROTHROMBIN [id number] 14:14:00 Test Item Value Reference Range Comments PROTIME (BEAKER) (test dzze=501) 20.7 seconds 11.7-14.7 INR (BEAKER) (test whkq=716) 1.8 <=5.9 RECOMMENDED COUMADIN/WARFARIN INR THERAPY RANGESSTANDARD DOSE: 2.0 - 3.0 Includes: PROPHYLAXIS forvenous thrombosis, systemic embolization; TREATMENT for venous thrombosis and/or pulmonary embolus.HIGH RISK: Target INR is 2.5-3.5 for patients with mechanical heart valves.[id number] 14:14:00 Test Item Value Reference Range Comments PARTIAL THROMBOPLASTIN TIME (BEAKER) (test 30.2 seconds 22.5-36.0 tiff=912) CALCIUM, [id number] 13:55:00 Test Item Value Reference Range Comments CALCIUM IONIZED (BEAKER) (test ywor=266) 1.13 mmol/L 1.12-1.27 PH, BLOOD (BEAKER) (test hxrl=9597) 7.30 BLOOD GAS, [id number] 13:55:00 Test Item Value Reference Range Comments PH ARTERIAL (BEAKER) (test lels=257) 7.32 7.35-7.45 PCO2 ARTERIAL (BEAKER) (test zswa=910) 49 mmHg 35-45 PO2 ARTERIAL (BEAKER) (test vfpy=694) 358 mmHg 80-90 O2 SATURATION ARTERIAL (BEAKER) (test amnj=028) 99.7 % 96.0-97.0 HCO3 ARTERIAL (BEAKER) (test dnwv=391) 25 mmol/L 21-29 BASE EXCESS ARTERIAL (BEAKER) (test sfox=986) -2.1 mmol/L -2.0-3.0 PATIENT TEMPERATURE (BEAKER) (test lnax=2718) 36.0 C FIO2 (BEAKER) (test zrch=2044) 100.0 % GLUCOSE-STAT [id number] 13:55:00 Test Item Value Reference Range Comments GLUCOSE RANDOM (BEAKER) (test kiyg=346) 201 mg/dL 70-110 HGB/HCT (H&H) - STAT [id number] 13:55:00 Test Item Value Reference Range Comments HEMOGLOBIN (BEAKER) (test cbzr=639) 9.7 g/dL 13.0-16.8 HEMATOCRIT (BEAKER) (test dfju=769) 29.0 % 40.0-50.0 SODIUM NA-STAT [id number] 13:54:00 Test Item Value Reference Range Comments SODIUM (BEAKER) (test wnzi=829) 137 meq/L 135-148 POTASSIUM-STAT [id number] 13:54:00 Test Item Value Reference Range Comments POTASSIUM (BEAKER) (test qxzb=127) 3.9 meq/L 3.6-5.5 BLOOD GAS, [id number] 13:22:00 Test Item Value Reference Range Comments PH ARTERIAL (BEAKER) (test houd=187) 7.32 7.35-7.45 PCO2 ARTERIAL (BEAKER) (test ccge=184) 50 mmHg 35-45 PO2 ARTERIAL (BEAKER) (test lzsa=578) 284 mmHg 80-90 O2 SATURATION ARTERIAL (BEAKER) (test wqvg=008) 99.6 % 96.0-97.0 HCO3 ARTERIAL (BEAKER) (test pwyy=533) 25 mmol/L 21-29 BASE EXCESS ARTERIAL (BEAKER) (test fjvs=721) -1.2 mmol/L -2.0-3.0 PATIENT TEMPERATURE (BEAKER) (test ppax=7446) 36.5 C FIO2 (BEAKER) (test ytxs=7531) 80.0 % GLUCOSE-STAT [id number] 13:22:00 Test Item Value Reference Range Comments GLUCOSE RANDOM (BEAKER) (test mnjq=445) 191 mg/dL 70-110 HGB/HCT (H&H) - STAT [id number] 13:22:00 Test Item Value Reference Range Comments HEMOGLOBIN (BEAKER) (test uyip=577) 9.3 g/dL 13.0-16.8 HEMATOCRIT (BEAKER) (test xycw=682) 27.0 % 40.0-50.0 SODIUM NA-STAT [id number] 13:18:00 Test Item Value Reference Range Comments SODIUM (BEAKER) (test yliv=472) 136 meq/L 135-148 POTASSIUM-STAT [id number] 13:18:00 Test Item Value Reference Range Comments POTASSIUM (BEAKER) (test cikr=088) 4.6 meq/L 3.6-5.5 BLOOD GAS, [id number] 12:39:00 Test Item Value Reference Range Comments PH ARTERIAL (BEAKER) (test ktdp=509) 7.40 7.35-7.45 PCO2 ARTERIAL (BEAKER) (test udvn=562) 39 mmHg 35-45 PO2 ARTERIAL (BEAKER) (test xrps=418) 191 mmHg 80-90 O2 SATURATION ARTERIAL (BEAKER) (test jgkd=192) 99.4 % 96.0-97.0 HCO3 ARTERIAL (BEAKER) (test oihs=834) 25 mmol/L 21-29 BASE EXCESS ARTERIAL (BEAKER) (test krgm=294) -1.2 mmol/L -2.0-3.0 PATIENT TEMPERATURE (BEAKER) (test jwlj=5998) 32.2 C FIO2 (BEAKER) (test mfhi=3410) 60.0 % SODIUM NA-STAT [id number] 12:39:00 Test Item Value Reference Range Comments SODIUM (BEAKER) (test lwnc=216) 134 meq/L 135-148 GLUCOSE-STAT [id number] 12:39:00 Test Item Value Reference Range Comments GLUCOSE RANDOM (BEAKER) (test sxyb=026) 166 mg/dL 70-110 HGB/HCT (H&H) - STAT [id number] 12:39:00 Test Item Value Reference Range Comments HEMOGLOBIN (BEAKER) (test oppb=034) 9.9 g/dL 13.0-16.8 HEMATOCRIT (BEAKER) (test xzgi=967) 29.0 % 40.0-50.0 POTASSIUM-STAT [id number] 12:38:00 Test Item Value Reference Range Comments POTASSIUM (BEAKER) (test knme=911) 4.4 meq/L 3.6-5.5 SODIUM NA-STAT [id number] 11:22:00 Test Item Value Reference Range Comments SODIUM (BEAKER) (test gxxs=517) 140 meq/L 135-148 POTASSIUM-STAT [id number] 11:22:00 Test Item Value Reference Range Comments POTASSIUM (BEAKER) (test sdya=298) 4.0 meq/L 3.6-5.5 HGB/HCT (H&H) - STAT [id number] 11:22:00 Test Item Value Reference Range Comments HEMOGLOBIN (BEAKER) (test qgfu=524) 14.5 g/dL 13.0-16.8 HEMATOCRIT (BEAKER) (test rpoj=367) 43.0 % 40.0-50.0 BLOOD GAS, [id number] 11:22:00 Test Item Value Reference Range Comments PH ARTERIAL (BEAKER) (test wwwr=832) 7.38 7.35-7.45 PCO2 ARTERIAL (BEAKER) (test nicf=362) 49 mmHg 35-45 PO2 ARTERIAL (BEAKER) (test hkyo=274) 295 mmHg 80-90 O2 SATURATION ARTERIAL (BEAKER) (test uatn=986) 99.7 % 96.0-97.0 HCO3 ARTERIAL (BEAKER) (test kjel=685) 28 mmol/L 21-29 BASE EXCESS ARTERIAL (BEAKER) (test jche=239) 1.7 mmol/L -2.0-3.0 PATIENT TEMPERATURE (BEAKER) (test kszt=3983) 35.7 C FIO2 (BEAKER) (test zjcn=2019) 100.0 % GLUCOSE-STAT [id number] 11:22:00 Test Item Value Reference Range Comments GLUCOSE RANDOM (BEAKER) (test qguo=992) 112 mg/dL 70-110 PLATELET AGGREGATION: FUNCTION [id number] 09:52:00 Test Item Value Reference Range Comments WEAK ADP RESULT(BEAKER) (test 68 % 60-91 uhsi=2151) PLATELET FUNCTION SCREEN 60-100% indicates normal INTERP (BEAKER) (test platelet function ssxf=9398) BYOA-CSGBZAPHNAO-8322 (BEAKER) Batsheva Llamas MD (electronic (test hhss=7139) signature) PLATELET COUNT AGG (BEAKER) 176 K/CU MM 150-450 (test flbs=1301) RAD, CHEST, 1 VIEW, NON [id number] 08:51:00Reason for exam:->preop for CV surgeryFINAL REPORT INDICATION: preop for CV surgery COMPARISON: None. TECHNIQUE: Chest radiograph, single view, portable technique. FINDINGS / IMPRESSION: There is suggestion of mild pulmonary venous congestion. No interstitial or alveolar edema. Mild tortuosity of the thoracic aorta without heart shadow enlargement. No pneumothorax or pleural effusion demonstrated. No evidence of infection. Osseous structures unremarkable. Signed : Cesario Parmarort Verified Date/Time: 11/29/2017 08:51:39 Reading Location: [facility] Women Electronically signed by: CESARIO PARMAR M.D.on 11/29/2017 08:51 AMPOCT-GLUCOSE [id number] 07:42:00 Test Item Value Reference Range Comments POC-GLUCOSE METER (BEAKER) 105 mg/dL 70-110 [facility] [address] [facility] (test pvqs=5854) [facility] [address] COMPREHENSIVE METABOLIC [id number] 07:03:00 Test Item Value Reference Range Comments TOTAL PROTEIN (BEAKER) 7.9 gm/dL 6.0-8.3 (test jszw=914) ALBUMIN (BEAKER) (test 4.0 g/dL 3.5-5.0 ksot=8541) ALKALINE PHOSPHATASE 71 U/L 40-150 (BEAKER) (test kspc=147) BILIRUBIN TOTAL (BEAKER) 0.6 mg/dL 0.2-1.2 (test mxlb=309) SODIUM (BEAKER) (test 140 meq/L 136-145 vmfn=336) POTASSIUM (BEAKER) (test 4.0 meq/L 3.5-5.1 iolm=971) CHLORIDE (BEAKER) (test 103 meq/L 98-107 hpwa=724) CO2 (BEAKER) (test 26 meq/L 22-29 dguj=308) BLOOD UREA NITROGEN 14 mg/dL 7-21 (BEAKER) (test sula=475) CREATININE (BEAKER) (test 0.92 mg/dL 0.57-1.25 nntm=288) GLUCOSE RANDOM (BEAKER) 112 mg/dL 70-105 (test vtxq=753) CALCIUM (BEAKER) (test 9.1 mg/dL 8.4-10.2 zmyx=939) AST (SGOT) (BEAKER) (test 19 U/L 5-34 gwdh=595) ALT (SGPT) (BEAKER) (test 26 U/L 6-55 rlqo=237) EGFR (BEAKER) (test mL/min/1.73 sq m INSUFFICIENT CLINICAL DATA mzcj=9020) TO CALCULATE ESTIMATED GFR. BASIC METABOLIC [id number] 07:03:00 Test Item Value Reference Range Comments SODIUM (BEAKER) (test 140 meq/L 136-145 klro=017) POTASSIUM (BEAKER) (test 4.0 meq/L 3.5-5.1 ayis=671) CHLORIDE (BEAKER) (test 103 meq/L 98-107 gkoc=455) CO2 (BEAKER) (test 26 meq/L 22-29 aeux=080) BLOOD UREA NITROGEN 14 mg/dL 7-21 (BEAKER) (test uucl=700) CREATININE (BEAKER) (test 0.92 mg/dL 0.57-1.25 tfln=189) GLUCOSE RANDOM (BEAKER) 112 mg/dL 70-105 (test rlgl=547) CALCIUM (BEAKER) (test 9.1 mg/dL 8.4-10.2 qdtl=878) EGFR (BEAKER) (test mL/min/1.73 sq m INSUFFICIENT CLINICAL DATA mval=3017) TO CALCULATE ESTIMATED GFR. [id number] 06:54:00 Test Item Value Reference Range Comments MAGNESIUM (BEAKER) (test gjcl=661) 1.9 mg/dL 1.6-2.6 PROTHROMBIN [id number] 06:46:00 Test Item Value Reference Range Comments PROTIME (BEAKER) (test wfkr=779) 13.4 seconds 11.7-14.7 INR (BEAKER) (test pnhq=149) 1.0 <=5.9 RECOMMENDED COUMADIN/WARFARIN INR THERAPY RANGESSTANDARD DOSE: 2.0 - 3.0 Includes: PROPHYLAXIS forvenous thrombosis, systemic embolization; TREATMENT for venous thrombosis and/or pulmonary embolus.HIGH RISK: Target INR is 2.5-3.5 for patients with mechanical heart valves.CBC W/PLT COUNT & AUTO [id number] 06:35:00 Test Item Value Reference Range Comments WHITE BLOOD CELL COUNT (BEAKER) (test cfnx=634) 6.8 K/ L 3.5-10.5 RED BLOOD CELL COUNT (BEAKER) (test cmhg=004) 5.32 M/ L 4.63-6.08 HEMOGLOBIN (BEAKER) (test hflb=239) 14.6 GM/DL 13.7-17.5 HEMATOCRIT (BEAKER) (test qheo=195) 47.0 % 40.1-51.0 MEAN CORPUSCULAR VOLUME (BEAKER) (test bsxg=620) 88.3 fL 79.0-92.2 MEAN CORPUSCULAR HEMOGLOBIN (BEAKER) (test 27.4 pg 25.7-32.2 impo=848) MEAN CORPUSCULAR HEMOGLOBIN CONC (BEAKER) (test 31.1 GM/DL 32.3-36.5 cgdp=736) RED CELL DISTRIBUTION WIDTH (BEAKER) (test 13.8 % 11.6-14.4 wwbt=185) PLATELET COUNT (BEAKER) (test vtpm=494) 177 K/CU MM 150-450 MEAN PLATELET VOLUME (BEAKER) (test bvqi=235) 11.2 fL 9.4-12.4 NUCLEATED RED BLOOD CELLS (BEAKER) (test 0 /100 WBC 0-0 esjx=761) NEUTROPHILS RELATIVE PERCENT (BEAKER) (test 57 % fpqh=068) LYMPHOCYTES RELATIVE PERCENT (BEAKER) (test 32 % bffn=393) MONOCYTES RELATIVE PERCENT (BEAKER) (test 7 % yhqe=875) EOSINOPHILS RELATIVE PERCENT (BEAKER) (test 4 % dvmz=143) BASOPHILS RELATIVE PERCENT (BEAKER) (test 0 % xide=672) NEUTROPHILS ABSOLUTE COUNT (BEAKER) (test 3.84 K/ L 1.78-5.38 twih=398) LYMPHOCYTES ABSOLUTE COUNT (BEAKER) (test 2.19 K/ L 1.32-3.57 vlfa=589) MONOCYTES ABSOLUTE COUNT (BEAKER) (test 0.44 K/ L 0.30-0.82 nnat=779) EOSINOPHILS ABSOLUTE COUNT (BEAKER) (test 0.24 K/ L 0.04-0.54 xmfv=380) BASOPHILS ABSOLUTE COUNT (BEAKER) (test 0.02 K/ L 0.01-0.08 jysx=202) IMMATURE GRANULOCYTES-RELATIVE PERCENT (BEAKER) 0 % 0-1 (test omgr=4994) POCT-GLUCOSE [id number] 21:53:00 Test Item Value Reference Range Comments POC-GLUCOSE METER (BEAKER) 131 mg/dL 70-110 TESTED AT [address] (test madi=0176) [place] [address] HEMOGLOBIN [id number] 20:50:00 Test Item Value Reference Range Comments HEMOGLOBIN A1C (BEAKER) (test dacw=530) 6.6 % 4.3-6.1 POCT-GLUCOSE [id number] 19:15:00 Test Item Value Reference Range Comments POC-GLUCOSE METER (BEAKER) 134 mg/dL 70-110 TESTED AT [address] (test yhap=1555) [place] [address] [id number] 18:35:00 Test Item Value Reference Range Comments PARTIAL THROMBOPLASTIN TIME (BEAKER) (test 32.4 seconds 22.5-36.0 qfrb=696) [id number] 18:34:00 Test Item Value Reference Range Comments FIBRINOGEN LEVEL (BEAKER) (test kkuq=872) 372 mg/dl 225-434 TSH/FREE T4 IF [id number] 16:25:00 Test Item Value Reference Range Comments THYROID STIMULATING HORMONE (BEAKER) (test 2.53 uIU/mL 0.35-4.94 ckir=165) BASIC METABOLIC [id number] 16:10:00 Test Item Value Reference Range Comments SODIUM (BEAKER) (test 139 meq/L 136-145 tesb=550) POTASSIUM (BEAKER) (test 4.2 meq/L 3.5-5.1 rzgw=040) CHLORIDE (BEAKER) (test 106 meq/L 98-107 rlct=750) CO2 (BEAKER) (test 25 meq/L 22-29 tuwp=326) BLOOD UREA NITROGEN 15 mg/dL 7-21 (BEAKER) (test sygi=127) CREATININE (BEAKER) (test 0.90 mg/dL 0.57-1.25 mjqh=895) GLUCOSE RANDOM (BEAKER) 124 mg/dL 70-105 (test cfwj=286) CALCIUM (BEAKER) (test 8.8 mg/dL 8.4-10.2 cenq=846) EGFR (BEAKER) (test mL/min/1.73 sq m INSUFFICIENT CLINICAL DATA rhno=5711) TO CALCULATE ESTIMATED GFR. [id number] 16:09:00 Test Item Value Reference Range Comments PHOSPHORUS (BEAKER) (test oxef=424) 3.0 mg/dL 2.3-4.7 [id number] 16:09:00 Test Item Value Reference Range Comments MAGNESIUM (BEAKER) (test vpxs=808) 2.0 mg/dL 1.6-2.6 LIPID [id number] 16:09:00 Test Item Value Reference Range Comments TRIGLYCERIDES (BEAKER) (test kpek=096) 263 mg/dL CHOLESTEROL (BEAKER) (test isff=087) 143 mg/dL HDL CHOLESTEROL (BEAKER) (test vaoj=085) 32 mg/dL LDL CHOLESTEROL CALCULATED (BEAKER) (test 58 mg/dL mqjf=405) Triglyceride Reference Range: Low Risk <150 Borderline 150- 199 High Risk 200-499 Very High Risk >=500Cholesterol Reference Range: Low Risk <200 Borderline 200-239 High Risk > 240HDL Cholesterol Reference Range: Low Risk >=60 High Risk <40LDL Cholesterol Reference Range: Optimal <100 Near Optimal 100-129 Borderline 130-159 High 160-189 Very High >=190HEPATIC FUNCTION [id number] 16:09:00 Test Item Value Reference Range Comments TOTAL PROTEIN (BEAKER) (test mlgq=205) 7.5 gm/dL 6.0-8.3 ALBUMIN (BEAKER) (test izjt=3418) 3.8 g/dL 3.5-5.0 BILIRUBIN TOTAL (BEAKER) (test xvzv=130) 0.4 mg/dL 0.2-1.2 BILIRUBIN DIRECT (BEAKER) (test uuxr=774) 0.2 mg/dL 0.1-0.5 ALKALINE PHOSPHATASE (BEAKER) (test azyc=755) 72 U/L 40-150 AST (SGOT) (BEAKER) (test unpk=090) 21 U/L 5-34 ALT (SGPT) (BEAKER) (test pdnu=493) 22 U/L 6-55 [id number] 16:04:00 Test Item Value Reference Range Comments PROTIME (BEAKER) (test wmxn=309) 14.5 seconds 11.7-14.7 INR (BEAKER) (test vbvf=804) 1.1 <=5.9 PARTIAL THROMBOPLASTIN TIME (BEAKER) (test 29.6 seconds 22.5-36.0 kols=535) RECOMMENDED COUMADIN/WARFARIN INR THERAPY RANGESSTANDARD DOSE: 2.0 - 3.0 Includes: PROPHYLAXIS forvenous thrombosis, systemic embolization; TREATMENT for venous thrombosis and/or pulmonary embolus.HIGH RISK: Target INR is 2.5-3.5 for patients with mechanical heart valves.
[2018-08-14] MEDS ORDERED: NA CHLORIDE 0.9% 1,000 ML ONE (09:21)
[2018-08-14] MEDS ORDERED: ASPIRIN 81 MG CHEWABLE TABLET ONE (09:21)
[2018-08-14 09:45] LABS: Protime INR 1.01
[2018-08-14 09:46] LABS: Absolute Lymphocytes (CBC) 0.9 K/uL (0.7-4.9); Absolute Monocytes 0.7 K/uL (0.1-1.3); Absolute Neutrophil 5.5 K/uL (1.8-8.0); Basophils % 0.3 % (0-1.3); Eosinophils % 1.1 % (0-4.4); Hematocrit 44.9 % (39.6-49.0); Lymphocytes % 12.8 % (15.3-44.8); MCH 28.9 pg (27.0-35.0); MCV 87.6 fL (80-100); MPV 9.5 fL (7.6-11.3); Monocytes % 9.9 % (3.3-12.3); RBC Red Blood Cell Count 5.12 M/uL (4.33-5.43)
--- NOTE | 2018-08-14 10:09 | EDPHYS ---
Physician Documentation [facility] Name: Armond Beltrán Age: 63 yrs Sex: Male : 1955 Arrival Date: 08/14/2018 Time: 08:56 Bed 8 Private MD: James Rg V ED Physician Rico Quintero HPI: 08/14 09:56 This 63 yrs old Male presents to ER via Ambulatory with complaints of Chest corina Pain > 30 y/o, Shortness Of Breath. 09:56 The patient or guardian reports chest pain that is located primarily in the substernal corina area, anterior chest wall, bilaterally. Onset: yesterday, last night. The pain does not radiate. Associated signs and symptoms: Pertinent positives: shortness of breath. The chest pain is described as a heaviness. Modifying factors: The symptoms are alleviated by nothing. the symptoms are aggravated by nothing. Severity of pain: At its worst the pain was mild in the emergency department the pain is unchanged. The patient has not experienced similar symptoms in the past. Historical: - Allergies: 08:59 NKA; ss - Home Meds: 10:23 metoprolol tartrate 50 mg Oral tab 1 tab [Active]; furosemide 20 mg Oral tab [Active]; sg amiodarone 200 mg Oral tab [Active]; tamsulosin 0.4 mg oral cp24 1 cap [Active]; atorvastatin 40 mg oral tab [Active]; - PMHx: 08:59 Myocardial infarction; Hypertension; Diabetes - NIDDM; ss - PSHx: 08:59 Heart stents; BACK Sx; LEFT LEG; ss - Immunization history:: Adult Immunizations unknown. - Social history:: Smoking status: Patient/guardian denies using tobacco. - Ebola Screening: : Patient denies exposure to infectious person Patient denies travel to an Ebola-affected area in the 21 days before illness onset. - Family history:: not pertinent. ROS: 09:56 Constitutional: Negative for fever, chills, and weight loss, Eyes: Negative for injury, corina pain, redness, and discharge, ENT: Negative for injury, pain, and discharge, Neck: Negative for injury, pain, and swelling, Abdomen/GI: Negative for abdominal pain, nausea, vomiting, diarrhea, and constipation, Back: Negative for injury and pain, : Negative for injury, bleeding, discharge, and swelling, Skin: Negative for injury, rash, and discoloration, Neuro: Negative for headache, weakness, numbness, tingling, and seizure, Psych: Negative for depression, anxiety, suicide ideation, homicidal ideation, and hallucinations, Allergy/Immunology: Negative for hives, rash, and allergies, Endocrine: Negative for neck swelling, polydipsia, polyuria, polyphagia, and marked weight changes, Hematologic/Lymphatic: Negative for swollen nodes, abnormal bleeding, and unusual bruising. 09:56 Cardiovascular: Positive for chest pain. 09:56 Respiratory: Positive for cough, shortness of breath. 09:56 MS/extremity: Positive for swelling, tenderness, of the right leg and left leg. Exam: 09:56 Constitutional: This is a well developed, well nourished patient who is awake, alert, corina and in no acute distress. Head/Face: Normocephalic, atraumatic. Eyes: Pupils equal round and reactive to light, extra-ocular motions intact. Lids and lashes normal. Conjunctiva and sclera are non-icteric and not injected. Cornea within normal limits. Periorbital areas with no swelling, redness, or edema. ENT: Nares patent. No nasal discharge, no septal abnormalities noted. Tympanic membranes are normal and external auditory canals are clear. Oropharynx with no redness, swelling, or masses, exudates, or evidence of obstruction, uvula midline. Mucous membranes moist. Neck: Trachea midline, no thyromegaly or masses palpated, and no cervical lymphadenopathy. Supple, full range of motion without nuchal rigidity, or vertebral point tenderness. No Meningismus. Chest/axilla: Normal chest wall appearance and motion. Nontender with no deformity. No lesions are appreciated. Cardiovascular: Regular rate and rhythm with a normal S1 and S2. No gallops, murmurs, or rubs. Normal PMI, no JVD. No pulse deficits. Respiratory: Lungs have equal breath sounds bilaterally, clear to auscultation and percussion. No rales, rhonchi or wheezes noted. No increased work of breathing, no retractions or nasal flaring. Abdomen/GI: Soft, non-tender, with normal bowel sounds. No distension or tympany. No guarding or rebound. No evidence of tenderness throughout. Back: No spinal tenderness. No costovertebral tenderness. Full range of motion. Male : Normal genitalia with no discharge or lesions. Skin: Warm, dry with normal turgor. Normal color with no rashes, no lesions, and no evidence of cellulitis. Neuro: Awake and alert, GCS 15, oriented to person, place, time, and situation. Cranial nerves II-XII grossly intact. Motor strength 5/5 in all extremities. Sensory grossly intact. Cerebellar exam normal. Normal gait. Psych: Awake, alert, with orientation to person, place and time. Behavior, mood, and affect are within normal limits. 09:56 Musculoskeletal/extremity: ROM: full active range of motion, full passive range of motion, Circulation is intact in all extremities. DVT Exam: no pain, no tenderness, negative Homans' sign noted on exam, no appreciated bluish discoloration, no erythema, no increased warmth, swelling. Vital Signs: 08:57 BP 132 / 73; Pulse 71; Resp 16; Temp 98.1; Pulse Ox 97% on R/A; Weight 136.08 kg; ss Height 6 ft. 1 in. (185.42 cm); Pain 10; 08:57 Body Mass Index 39.58 (136.08 kg, 185.42 cm) ss MDM: 09:03 Patient medically screened. [facility] 10:00 Data reviewed: vital signs, nurses notes, EMS record, lab test result(s), EKG, [facility] radiologic studies, CT scan, doppler, plain films. 08/14 09:04 Order name: Basic Metabolic Panel; Complete Time: 11:27 [facility] 08/14 09:04 Order name: CBC with Diff; Complete Time: 09:56 [facility] 08/14 09:04 Order name: LFT's; Complete Time: 11:27 corina 08/14 09:04 Order name: Magnesium; Complete Time: 11:27 [facility] 08/14 09:04 Order name: NT PRO-BNP; Complete Time: 11:27 [facility] 08/14 09:04 Order name: PT-INR; Complete Time: 09:56 [facility] 08/14 09:04 Order name: Troponin (emerg Dept Use Only); Complete Time: 11:27 [facility] 08/14 09:04 Order name: Lipase; Complete Time: 11:27 [facility] 08/14 09:55 Order name: Blood Culture Adult (2) [facility] 08/14 09:56 Order name: Flu; Complete Time: 11:27 [facility] 08/14 10:16 Order name: Basic Metabolic Panel EDIN 08/14 10:16 Order name: Basic Metabolic Panel EDIN 08/14 10:16 Order name: CBC with Automated Diff EDIN 08/14 10:16 Order name: CBC with Automated Diff EDIN 08/14 09:04 Order name: XRAY Chest (1 view); Complete Time: 11:27 [facility] 08/14 09:04 Order name: EKG; Complete Time: 09:05 [facility] 08/14 10:06 Order name: CT Chest For PE Angio [facility] 08/14 10:16 Order name: Echo with Doppler EDIN 08/14 10:16 Order name: Troponin I EDIN 08/14 10:16 Order name: Troponin I EDIN 08/14 10:16 Order name: Troponin I EDIN 08/14 10:17 Order name: Chest Single View EDIN 08/14 10:17 Order name: Chest Single View EDIN 08/14 10:17 Order name: Extrem Venous W Compress Marquise; Complete Time: 11:27 [facility]IN 08/14 10:59 Order name: CT; Complete Time: 11:27 [facility] 08/14 09:04 Order name: Cardiac monitoring; Complete Time: 09:13 [facility] 08/14 09:04 Order name: EKG - Nurse/Tech; Complete Time: 09:13 [facility] 08/14 09:04 Order name: IV Saline Lock; Complete Time: 09:14 [facility] 08/14 09:04 Order name: Labs collected and sent; Complete Time: 09:14 [facility] 08/14 09:04 Order name: O2 Per Protocol; Complete Time: 09:14 [facility] 08/14 09:04 Order name: O2 Sat Monitoring; Complete Time: 09:14 [facility] 08/14 10:16 Order name: CONS Physician Consult EDIN 08/14 10:16 Order name: CONS Physician Consult EDIN 08/14 10:16 Order name: Consistent Carb (ADA) 1800 Matias EDIN 08/14 10:16 Order name: EKG Electrocardiogram EDIN 08/14 10:16 Order name: EKG Electrocardiogram EDIN 08/14 10:16 Order name: EKG Electrocardiogram EDIN 08/14 10:16 Order name: EKG Electrocardiogram EDMS Administered Medications: 09:16 Drug: NS 0.9% 1000 ml Route: IV; Rate: 75 ml/hr; Site: right antecubital; iw 09:16 Drug: Aspirin 162 mg Route: PO; iw 10:00 Follow up: Response: No adverse reaction iw 11:30 Drug: Pepcid 20 mg Route: IVP; Site: right antecubital; iw 12:00 Follow up: Response: No adverse reaction iw 11:30 Drug: [place] 10 mg-325 mg 1 tabs Route: PO; iw 12:00 Follow up: Response: No adverse reaction; Pain is decreased iw 11:36 Drug: Lovenox 100 mg Route: Sub-Q; Site: right lower abdomen; iw 12:40 Follow up: Response: No adverse reaction iw Disposition: 08/14/18 10:08 Hospitalization ordered by James Rg for Observation. Preliminary diagnosis are Chest pain, unspecified, Dyspnea. - Bed requested for Telemetry/MedSurg (observation). - Status is Observation. iw - Condition is Fair. - Problem is new. - Symptoms have improved. UTI on Admission? No Signatures: Dispatcher [employer] Nohemi Valerio RN RN dw Gay, Steven, RN RN sg Anderson, Corey, MD MD cha Williams, Irene, RN RN iw Smirch, Shelby, RN RN ss Corrections: (The following items were deleted from the chart) 10:57 10:08 Hospitalization Ordered by James Rg MD for Observation. Preliminary diagnosis dw is Chest pain, unspecified; Dyspnea. Bed requested for Telemetry/MedSurg (observation). Status is Observation. Condition is Fair. Problem is new. Symptoms have improved. UTI on Admission? No. corina 12:10 10:57 08/14/2018 10:08 Hospitalization Ordered by James Rg MD for Observation. iw Preliminary diagnosis is Chest pain, unspecified; Dyspnea. Bed requested for Telemetry/MedSurg (observation). Status is Observation. Condition is Fair. Problem is new. Symptoms have improved. UTI on Admission? No. dw
--- NOTE | 2018-08-14 10:09 | ER ---
Nurse's Notes [facility] Name: Armond Beltrán Age: 63 yrs Sex: Male : 1955 Arrival Date: 08/14/2018 Time: 08:56 Bed 8 Private MD: James Rg V Diagnosis: Chest pain, unspecified;Dyspnea Presentation: 08/14 08:56 Presenting complaint: Patient states: intermittent chest pressure that began at 0500 ss this morning. Cough and subjective fever x 1 week as well. Transition of care: patient was not received from another setting of care. Onset of symptoms was August 14, 2018. Risk Assessment: Do you want to hurt yourself or someone else? Patient reports no desire to harm self or others. Initial Sepsis Screen: Does the patient meet any 2 criteria? No. Patient's initial sepsis screen is negative. Does the patient have a suspected source of infection? Yes: Productive cough/pneumonia. Care prior to arrival: None. 08:56 Method Of Arrival: Ambulatory ss 08:56 Acuity: KEVIN 3 ss Historical: - Allergies: 08:59 NKA; ss - Home Meds: 10:23 metoprolol tartrate 50 mg Oral tab 1 tab [Active]; furosemide 20 mg Oral tab [Active]; sg amiodarone 200 mg Oral tab [Active]; tamsulosin 0.4 mg oral cp24 1 cap [Active]; atorvastatin 40 mg oral tab [Active]; - PMHx: 08:59 Myocardial infarction; Hypertension; Diabetes - NIDDM; ss - PSHx: 08:59 Heart stents; BACK Sx; LEFT LEG; ss - Immunization history:: Adult Immunizations unknown. - Social history:: Smoking status: Patient/guardian denies using tobacco. - Ebola Screening: : Patient denies exposure to infectious person Patient denies travel to an Ebola-affected area in the 21 days before illness onset. - Family history:: not pertinent. Screenin:14 Abuse screen: Denies threats or abuse. Denies injuries from another. Nutritional ss screening: No deficits noted. Tuberculosis screening: Never had TB. Fall Risk None identified. Assessment: 09:25 General: Appears in no apparent distress. Behavior is calm, cooperative. Pain: iw Complains of pain in anterior aspect of left upper chest and left breast Pain radiates to anterior aspect of right upper chest and right breast Pain currently is 8 out of 10 on a pain scale. Quality of pain is described as pressure, Pain began 4 hours ago. Neuro: Level of Consciousness is awake, alert, obeys commands, Oriented to person, place, time, situation, Moves all extremities. Full function. Cardiovascular: Reports chest pain, lightheadedness, Heart tones S1 S2 present Capillary refill < 3 seconds in bilateral fingers Patient's skin is warm and dry. Respiratory: Respiratory effort is even, unlabored, Respiratory pattern is regular, symmetrical. GI: Patient currently denies nausea, vomiting. Derm: Skin is intact, is healthy with good turgor. Musculoskeletal: No signs and/or symptoms reported regarding the musculoskeletal system. Range of motion: intact in all extremities. 10:19 Reassessment: [facility] contacted [place] with [facility], home medications refilled sg [facility] are Metoprolol 50 mg Tab, Furosemide 20 mg Tab, Amiodarone 200 mg, Tamsulosin 0.4 mg. 12:01 Reassessment: Patient appears in no apparent distress at this time. Patient and/or iw family updated on plan of care and expected duration. Pain level reassessed. Patient is alert, oriented x 3, equal unlabored respirations, skin warm/dry/pink. Vital Signs: 08:57 BP 132 / 73; Pulse 71; Resp 16; Temp 98.1; Pulse Ox 97% on R/A; Weight 136.08 kg; ss Height 6 ft. 1 in. (185.42 cm); Pain 10/10; 08:57 Body Mass Index 39.58 (136.08 kg, 185.42 cm) ED Course: 08:56 Patient arrived in ED. sb2 08:56 James Rg MD is Private Physician. sb2 08:57 Triage completed. ss 09:03 Rico Quintero MD is Attending Physician. corina 09:11 Urszula Pedraza RN is Primary Nurse. iw 09:13 Inserted saline lock: 20 gauge in right antecubital area, using aseptic technique. ss Blood collected. Patient maintains SpO2 saturation greater than 95% on room air. 09:14 Patient has correct armband on for positive identification. Bed in low position. Call ss light in reach. Side rails up X 1. Placed in gown. telemetry monitor on. Pulse ox on. NIBP on. 09:33 Warm blanket given. em1 09:54 X-ray completed. Portable x-ray completed in exam room. Patient tolerated procedure ls3 well. 09:55 XRAY Chest (1 view) In Process Unspecified. EDMS 10:08 James Rg MD is Hospitalizing Provider. [facility] 10:10 Radiology exam delayed due to lab results not completed at this time. (BUN/Creatinine). cw1 10:20 Inserted saline lock: 20 gauge in left hand, using aseptic technique. Blood collected. em1 10:20 First set of blood cultures drawn by me, Flu and/or RSV swab sent to lab. em1 10:22 Note: us delay- putting in IV. hr 10:47 CT completed. Patient tolerated procedure well. Patient moved to CT via stretcher. Patient taken to ultrasound. Patient taken to ultrasound. Patient moved back from CT. 11:12 Ultrasound completed. hr 12:00 No provider procedures requiring assistance completed. Patient admitted, IV remains in iw place. 12:01 Arm band placed on. iw Administered Medications: 09:16 Drug: NS 0.9% 1000 ml Route: IV; Rate: 75 ml/hr; Site: right antecubital; iw 09:16 Drug: Aspirin 162 mg Route: PO; iw 10:00 Follow up: Response: No adverse reaction iw 11:30 Drug: Pepcid 20 mg Route: IVP; Site: right antecubital; iw 12:00 Follow up: Response: No adverse reaction iw 11:30 Drug: [place] 10 mg-325 mg 1 tabs Route: PO; iw 12:00 Follow up: Response: No adverse reaction; Pain is decreased iw 11:36 Drug: Lovenox 100 mg Route: Sub-Q; Site: right lower abdomen; iw 12:40 Follow up: Response: No adverse reaction iw Outcome: 10:08 Decision to Hospitalize by Provider. [facility] 12:00 Admitted to Tele accompanied by tech, via wheelchair, room 210, Report called to mackenzie Guerrero RN 12:00 Condition: good 12:00 Discharge instructions given to patient, Instructed on the need for admit, Demonstrated understanding of instructions. 12:10 Patient left the ED. iw Signatures: Dispatcher [employer] EDMS David Arce, Rico White RN, MD MD cha Jones, Susan sj Rod, Haley hr Williams, Irene, RN RN iw Martinez, Calvin em1 Carmencita Alvarado RN RN ss Woodley, Crystal cw1 Debbie Ramírez sb2 Kenna Ba ls3 Corrections: (The following items were deleted from the chart) 09:12 08:56 Presenting complaint: Patient states: intermittent chest pressure that began at ss 0500 this morning.
[2018-08-14] MEDS ORDERED: ACETAMINOPHEN 500 MG TAB PO PRN (10:12)
[2018-08-14] MEDS ORDERED: ONDANSETRON 4 MG/2 ML VIAL IV PRN (10:12)
[2018-08-14 10:13] LABS: ALT/SGPT 27 U/L (12-78); AST/SGOT 17 U/L (15-37); Albumin 3.2 g/dL (3.4-5.0); Alkaline Phosphatase 93 U/L (45-117); BUN Blood Urea Nitrogen 16 mg/dL (7-18); Bicarbonate 29 mmol/L (21-32); Bilirubin Direct 0.2 mg/dL (0-0.2); Bilirubin Total 0.6 mg/dL (0.2-1.0); Glucose Level 280 mg/dL (74-106); Lipase 106 U/L (73-393); NT PRO-BNP 195 pg/mL (<125); Potassium 4.1 mmol/L (3.5-5.1); Protein, Total 7.9 g/dL (6.4-8.2); Sodium Level 138 mmol/L (136-145); Troponin (Emerg Dept Use Only) < 0.02 ng/mL (0.0-0.045)
--- NOTE | 2018-08-14 10:59 | RAD REPORT ---
EXAM DESCRIPTION: CT - Chest For Pe Angio - 08/14/2018 10:49 am CLINICAL HISTORY: Dyspnea, chest pain and pressure COMPARISON: Chest films same date, CT chest October 2009 TECHNIQUE: Dynamically enhanced 3 mm thick images of the chest were obtained during administration o f approximately 150mL Isovue 370 IV contrast. Coronal and oblique MIP reconstruction images were gene rated and reviewed. Exam utilizes a protocol to evaluate the pulmonary arterial tree. All CT scans are performed using dose optimization technique as appropriate and may include automated exposure control or mA/KV adjustment according to patient size. FINDINGS: No pulmonary emboli are identified. The aorta as imaged shows no acute or suspicious finding. No pericardial thickening or effusion. No infiltrate or mass in the lung parenchyma. No pleural effusion or pleural thickening. Minimal atel ectasis in the left base. Minimal interstitial edema or infiltrate could be masked by the amount of m otion degradation present. No mediastinal or hilar suspicious masses. No chest wall masses or abnormal axillary lymphadenopathy. IMPRESSION: No pulmonary emboli identified. No other significant or suspicious findings.
[2018-08-14] MEDS ORDERED: FAMOTIDINE 20 MG/2 ML VIAL IV ONE (11:06)
[2018-08-14] MEDS ORDERED: ENOXAPARIN 100 MG/ML SYR SQ ONE (11:06)
--- NOTE | 2018-08-14 11:07 | RAD REPORT ---
EXAM DESCRIPTION: RAD - Chest Single View - 08/14/2018 9:55 am CLINICAL HISTORY: Cough, chest pain and pressure COMPARISON: November 25 TECHNIQUE: AP portable chest image was obtained 0951 hours . FINDINGS: No focal mass or consolidation. Lung markings are reduced compared to the prior study. The re is slight left hemidiaphragm elevation. Stranding in the left base is believed to be atelectasis. Upper lobe vascular not clearly different from comparison. Heart size is normal range. Sternotomy wir es and CABG surgical changes occurred since November. No measurable pleural effusion and no pneumotho rax. No acute bony abnormality seen. No acute aortic findings suspected. IMPRESSION: No acute cardiopulmonary process. Patient has chronic interstitial lung disease that is not clearly different from comparison. CABG surgical changes noted since prior imaging.
--- NOTE | 2018-08-14 11:17 | RAD REPORT ---
EXAM DESCRIPTION: US - Extrem Venous W Compress Marquise - 08/14/2018 11:12 am CLINICAL HISTORY: ro dvt Bilateral leg edema and swelling. COMPARISON: EXT VENOUS UNI LTD dated 10/20/2015 TECHNIQUE: Real-time sonographic interrogation of the left and right lower extremity deep venous sys tems was performed. FINDINGS: Normal compressibility, flow augmentation, phasic flow and spontaneous flow is identified in both the left and right lower extremity deep venous systems. IMPRESSION: No sonographic evidence of left or right lower extremity deep venous thrombosis.
--- NOTE | 2018-08-14 11:21 | EKG ---
Test Date: 2018-08-14 Test Time: 09:10:50 Photographic Technician: MYRTLE MEASUREMENT RESULTS: Intervals: Rate: 69 MN: 158 QRSD: 160 QT: 426 QTc: 456 [place]: P: 39 MN: 158 QRS: 263 T: 11 INTERPRETIVE STATEMENTS: Normal sinus rhythm Right bundle branch block Left anterior fascicular block Cannot rule out inferior infarct, masked by fascicular block Abnormal ECG Compared to ECG 11/26/2017 12:27:54 Right bundle-branch block now present Sinus bradycardia no longer present ST (T wave) deviation no longer present Possible ischemia no longer present Electronically Signed On 08-14-18 11:20:41 CDT by Warner Sauer
[2018-08-14] MEDS ORDERED: HYDROCODONE/APAP 10/325 TAB ONE (11:36)
[2018-08-14 12:44] VITALS: BMI 40.2
[2018-08-14 14:26] LABS: Urine Appearance CLEAR; Urine Bilirubin NEGATIVE (NEG); Urine Blood NEGATIVE (NEG); Urine Color YELLOW; Urine Glucose 2+ (NEG); Urine Protein NEGATIVE (NEG); Urine Specific Gravity >=1.030 (1.005-1.030)
[2018-08-14 14:27] LABS: Urine Microscopic Reflex ORDER UMIC
[2018-08-14 14:30] LABS: Urine Bacteria 20-50 /HPF (NONE SEEN); Urine Culture Reflex Order REFLEXED; Urine Mucus 1+ /HPF (NONE SEEN); Urine RBC <5 /HPF (NONE SEEN)
[2018-08-14] MEDS: MORPHINE 4 MG/ML SYR IV PRN ×2 (17:21→21:14)
--- NOTE | 2018-08-14 17:41 | P.HP ---
Certification for Inpatient Patient admitted to: Observation With expected LOS: <2 Midnights Practitioner: I am a practitioner with admitting privileges, knowledge of patient current condition, hospital course, and medical plan of care. Services: Services provided to patient in accordance with Admission requirements found in Title 42 Section 412.3 of the Code of Federal Regulations Patient History Date of Service: 08/14/18 Reason for admission: ABDOMEN PAIN History of Present Illness: MR. SPENCE IS AN OBESE, DIABETIC WITH CAD, COMES WITH MODERATE ABDOMEN PAIN RUQ AND LUQ THIS AM. HE HAS NO NAUSEA, VOMITING, DIAPHORESIS OR CHEST PAIN. Allergies No Known Allergies Allergy (Verified 11/25/17 20:38) Home Medications: Diazepam 10 mg PO DAILY PRN 10/12/16 Hydrocodone Bit/Acetaminophen [Hydrocodon-Acetaminophn 10-325] 1 tab PO Q4HR PRN 10/12/16 Amiodarone HCl [Cordarone*] 1 tab PO DAILY 08/14/18 Atorvastatin Calcium 1 tab PO BEDTIME 08/14/18 Furosemide 20 mg PO DAILY 08/14/18 Metoprolol Tartrate 50 mg PO DAILY 08/14/18 Tamsulosin [Flomax*] 1 cap PO [id number] 08/14/18 - Past Medical/Surgical History Has patient received pneumonia vaccine in the past: No Diabetic: Yes -: CAD -: NIDDM -: obstructive sleep apnea -: Chronic back pain -: Hyperlipedemia -: Heart cath/with stents x3 -: laminectomy -: coronary artery bypass graft - Social History Smoking Status: Never smoker Alcohol use: No CD- Drugs: No Caffeine use: No Place of Residence: Home Review of Systems 10-point ROS is otherwise unremarkable Physical Examination - Vital Signs Temperature: 99.3 F Blood Pressure: 124/58 Pulse: 68 Respirations: 20 Pulse Ox (%): 98 - Physical Exam General: Alert, Mild distress HEENT: Atraumatic, PERRLA, Mucous membr. moist/pink, EOMI, Sclerae nonicteric Neck: Supple, 2+ carotid pulse no bruit, No LAD, Without JVD or thyroid abnormality Respiratory: Clear to auscultation bilaterally, Normal air movement Cardiovascular: Regular rate/rhythm, Normal S1 S2 Gastrointestinal: Normal bowel sounds, No tenderness Musculoskeletal: No tenderness Integumentary: No rashes Neurological: Normal gait, Normal speech, Normal strength at 5/5 x4 extr, Normal tone, Normal affect Lymphatics: No axilla or inguinal lymphadenopathy - Studies Laboratory Data (last 24 hrs) 08/14/18 09:10: PT 11.9, INR 1.01 08/14/18 09:10: WBC 7.3, Hgb 14.8, Hct 44.9, Plt Count 140 L 08/14/18 09:10: Sodium 138, Potassium 4.1, BUN 16, Creatinine 1.40 H, Glucose 280 H, Magnesium 2.0, Total Bilirubin 0.6, AST 17, ALT 27, Alkaline Phosphatase 93, Lipase 106 Assessment and Plan - Problems (Diagnosis) (1) Abdominal pain Onset Date: 10/13/16 Current Visit: No Status: Acute Plan: AND LUQ BOTH. HE HAS NO TENDERNESS, OR RBBOUND THIS CAN BE CHOLECYSTITIS. IV ROCEPHEN STARTED DAVE DO SONOGRAM AND IF OKAY FURTHER SEARS. Qualifiers: Abdominal location: right upper quadrant Qualified Code(s): R10.11 - Right upper quadrant pain (2) Cholecystitis Onset Date: 10/13/16 Current Visit: No Status: Suspected (3) CAD (coronary artery disease) Current Visit: Yes Status: Acute Plan: HE HAD CAD BUT THIS TIME NO CHEST PAIN. ABD PAIN AND LOW GRADE FEVER MOST LIKELY HAS NOTHING TO DO WITH HIS HEART. - Advance Directives Does patient have a Living Will: No Does patient have a Durable POA for Healthcare: No
[2018-08-14] MEDS: CEFTRIAXONE/SWI 1gm 1 GM/10 ML SYR IVP SCH (19:45)
[2018-08-14] MEDS ORDERED: DIPHENHYDRAMINE 25 MG TAB/CAP PO PRN (20:06)
[2018-08-14] MEDS ORDERED: GUAIFENESIN/DM 5 ML UCUP PO PRN (20:06)
[2018-08-14] MEDS ORDERED: DIAZEPAM 5 MG TABLET PO PRN (20:56)
[2018-08-14] MEDS ORDERED: ENOXAPARIN 100 MG/ML SYR SQ SCH (21:00)
[2018-08-14] MEDS ORDERED: ATORVASTATIN 40 MG TAB PO SCH (21:00)
[2018-08-14] MEDS: FAMOTIDINE 20 MG/2 ML VIAL IV SCH (21:17)
[2018-08-15] MEDS: HYDROCODONE/APAP 10/325 TAB PO PRN ×2 (00:09→05:16)
--- NOTE | 2018-08-15 02:39 | CON ---
Date of Consultation: 08/14/2018 Reason For Consultation: Chest pain. History Of Present Illness: Mr. Beltrán is a 63-year-old male, has a history of morbi d obesity, diabetes, dyslipidemia, hypertension, benign prostatic hypertrophy. He also has a history of atrial fibrillation, coronary artery disease, had a stent in 2012. He had bypass surgery in 2017, and he did well from a surgical standpoint, had been in atrial fibrillation. He is genoveva ing amiodarone since he is in normal rhythm. He came in with sharp chest pain radiating to the back, severe back pain that has been going on with chronic cough. No fever. No chills. No PND, orthopne a, pedal edema, palpitations, or syncope. He was admitted for workup. Past Medical History: As stated above. Allergies: NONE. Review of Systems: Negative. Social History: Negative. Family History: Noncontributory. Medications: Flomax, metoprolol, amiodarone, Lipitor, Lasix, Valium, and Tylenol No. 3. Physical Examination: Vital Signs: He weighed 305 pounds. His vital signs were stable, afebrile. HEENT: Negative. Neck: Supple without any bruit, lymphadenopathy, JVD, or thyromegaly. Chest: Clear to auscultation and percussion. Cardiac: Regular rhythm and rate without any murmurs, gallops, or rubs. Abdomen: Obese, but benign. Extremities: No clubbing, cyanosis, or edema. Laboratory Data: His troponin was negative. Creatinine is 1.4, glucose was 280. EKG showed bifasci cular block. Chest x-ray was negative. Venous Doppler was negative. Impression And Plan: 1.Pleuritic chest pain, most likely pleurisy related, must rule out pericarditis. An echocardiogram is pending. I doubt any coronary artery disease issues here. 2.History of coronary artery disease, status post coronary artery bypass grafting in 2018 in . 3.Atrial fibrillation, on amiodarone, has resolved. 4.Dyslipidemia, on Lipitor. 5.Benign prostatic hypertrophy, on Flomax. 6.Hypertension, on metoprolol. 7.Diabetes that is poorly controlled. 8.Chronic back pain, on Valium and Tylenol No. 3. We will see what the echo shows. If that is nega tive, he can go home. He needs to follow up in our office in the next 2-4 weeks. ASAEL Voice ID: [id number] Report ID: [id number]
[2018-08-15] MEDS ORDERED: TAMSULOSIN 0.4 MG SR CAP PO SCH (06:00)
[2018-08-15 06:28] LABS: Absolute Lymphocytes (CBC) 1.2 K/uL (0.7-4.9); Absolute Monocytes 0.7 K/uL (0.1-1.3); Absolute Neutrophil 3.9 K/uL (1.8-8.0); Basophils % 0.3 % (0-1.3); Eosinophils % 1.5 % (0-4.4); Hematocrit 42.1 % (39.6-49.0); Lymphocytes % 20.8 % (15.3-44.8); MCH 29.4 pg (27.0-35.0); MCV 87.5 fL (80-100); MPV 9.8 fL (7.6-11.3); Monocytes % 11.3 % (3.3-12.3); RBC Red Blood Cell Count 4.82 M/uL (4.33-5.43)
--- NOTE | 2018-08-15 08:19 | RAD REPORT ---
EXAM DESCRIPTION: Mini Single View08/15/2018 6:34 am CLINICAL HISTORY: Chest pain COMPARISON: August 14, 2018 FINDINGS: The lungs appear clear of acute infiltrate. The heart is mildly enlarged. Postsurgical changes involve the chest. IMPRESSION: No acute abnormalities displayed
[2018-08-15] MEDS ORDERED: METOPROLOL TAR 50 MG TAB PO SCH (09:00)
[2018-08-15] MEDS ORDERED: ASPIRIN EC 81 MG TAB PO SCH (09:00)
[2018-08-15] MEDS ORDERED: AMIODARONE HCL 200 MG TAB PO SCH (09:00)
[2018-08-15] MEDS ORDERED: CEFTRIAXONE 1 GM/NS 50 ML 1 GM/50 ML BAG IV SCH (09:00)
[2018-08-15] MEDS ORDERED: FUROSEMIDE 20 MG TABLET PO SCH (09:00)
[2018-08-15] MEDS: FAMOTIDINE 20 MG/2 ML VIAL IV SCH (09:03)
[2018-08-15] MEDS: CEFTRIAXONE/SWI 1gm 1 GM/10 ML SYR IVP SCH (09:04)
--- NOTE | 2018-08-15 09:25 | RAD REPORT ---
EXAM DESCRIPTION: US - Abdomen Exam Complete - 08/15/2018 8:12 am CLINICAL HISTORY: Abdominal pain COMPARISON: 2016 FINDINGS: The liver has an increased echotexture. The gallbladder is distended. The and 9 millimeter echogenic structure is present the gallbladder whi ch does not shadow. Gallbladder wall is borderline thickened. The biliary tree is normal caliber. The pancreas was not well visualized secondary overlying bowel gas but appears grossly normal. The right kidney measures 12 centimeters with a normal echotexture. The left kidney measures 12 centimeters with a normal echotexture. The spleen measures 14 centimeters. The abdominal aorta and inferior vena cava appear unremarkable IMPRESSION: Increased hepatic echotexture consistent with fatty infiltration Distended gallbladder. 9 millimeter echogenic structure within the gallbladder probably represents a polyp. Follow-up ultrasound in 1 year is recommended to assess stability. Borderline gallbladder wall thickening may indicate cholecystitis and should be correlated clinically
--- NOTE | 2018-08-15 12:56 | P.DS ---
Admission Date: 08/14/18 Discharge Date: 08/15/18 Disposition: ROUTINE DISCHARGE Discharge Condition: FAIR Reason for Admission: ABDOMEN PAIN - Problems (1) Abdominal pain Onset Date: 10/13/16 Current Visit: No Status: Acute Qualifiers: Abdominal location: right upper quadrant Qualified Code(s): R10.11 - Right upper quadrant pain (2) Cholecystitis Onset Date: 10/13/16 Current Visit: No Status: Suspected (3) CAD (coronary artery disease) Onset Date: 08/15/18 Current Visit: Yes Status: Acute Brief History of Present Illness: MR. SPENCE IS AN OBESE, DIABETIC WITH CAD, COMES WITH MODERATE ABDOMEN PAIN RUQ AND LUQ THIS AM. HE HAS NO NAUSEA, VOMITING, DIAPHORESIS OR CHEST PAIN. MR. SPENCE HAS PAIN FROM CHOLECYSTITIS. HE HAS BEEN TOLD BEFORE TO GET GB REMOVED. HE ASKED TO WAIT LAST TIME AND ALSO THIS TIME HE WANTS TO WAIT TWO MONTHS. I TOLD HIM THAT ONE TIME THIS WILL GET HIM SEPTIC AND HE UNDERSTOOD. STABLE FOR HOME. Vital Signs/Physical Exam: Temp Pulse Resp BP Pulse Ox 96.6 F L 73 18 129/70 93 08/15/18 08:00 08/15/18 09:07 08/15/18 08:00 08/15/18 09:07 08/15/18 08:00 Laboratory Data at Discharge: WBC 5.9 K/uL (4.3-10.9) D 08/15/18 05:08 Hgb 14.1 g/dL (13.6-17.9) 08/15/18 05:08 Hct 42.1 % (39.6-49.0) 08/15/18 05:08 Plt Count 140 K/uL (152-406) L 08/15/18 05:08 PT 11.9 SECONDS (9.5-12.5) 08/14/18 09:10 INR 1.01 08/14/18 09:10 Sodium 137 mmol/L (136-145) 08/15/18 05:08 Potassium 4.0 mmol/L (3.5-5.1) 08/15/18 05:08 BUN 15 mg/dL (7-18) 08/15/18 05:08 Creatinine 1.10 mg/dL (0.55-1.3) 08/15/18 05:08 Glucose 168 mg/dL (74-106) H 08/15/18 05:08 Magnesium 2.0 mg/dL (1.8-2.4) 08/14/18 09:10 Total Bilirubin 0.6 mg/dL (0.2-1.0) 08/14/18 09:10 AST 17 U/L (15-37) 08/14/18 09:10 ALT 27 U/L (12-78) 08/14/18 09:10 Alkaline Phosphatase 93 U/L (45-117) 08/14/18 09:10 Troponin I < 0.02 ng/mL (0.0-0.045) 08/14/18 14:43 Lipase 106 U/L (73-393) 08/14/18 09:10 Home Medications: Diazepam 10 mg PO DAILY PRN 10/12/16 Hydrocodone Bit/Acetaminophen [Hydrocodon-Acetaminophn 10-325] 1 tab PO Q4HR PRN 10/12/16 Amiodarone HCl [Cordarone*] 1 tab PO DAILY 08/14/18 Atorvastatin Calcium 1 tab PO BEDTIME 08/14/18 Furosemide 20 mg PO DAILY 08/14/18 Metoprolol Tartrate 50 mg PO DAILY 08/14/18 Tamsulosin [Flomax*] 1 cap PO ACADT1II 08/14/18 Ciprofloxacin HCl [Cipro 250 MG Tablet*] 250 mg PO BID #14 tab 08/15/18 New Medications: Ciprofloxacin HCl [Cipro 250 MG Tablet*] 250 mg PO BID #14 tab Patient Discharge Instructions: MR. SPENCE, YOU HAVE GALL BLADDER THICKENING. YOU NEED TO GO TO DR. GOLDMAN TO GET GB REMOVED. I HAD ADVISED YOU THIS BEFORE. I UNDERSTAND YOU WANT TO WAIT FOR TWO MONTHS BEFORE YOU DO SURGERY. IN ANY CASE VISIT DR. KRISTA GOLDMAN TO GET SET UP FOR GALL BLADDER SURGERY. I CAN HAVE IT DONE WHILE YOU ARE HERE BUT I UNDERSTAND YOU WANT TO WAIT.
--- NOTE | 2018-08-15 13:54 | EKG ---
Test Date: 2018-08-15 Test Time: 09:10:39 Kennel Keeper: MYRTLE MEASUREMENT RESULTS: Intervals: Rate: 71 NC: 166 QRSD: 168 QT: 462 QTc: 502 [place]: P: 42 NC: 166 QRS: 259 T: 24 INTERPRETIVE STATEMENTS: Normal sinus rhythm Right bundle branch block Inferior infarct, age undetermined Abnormal ECG Compared to ECG 08/14/2018 09:10:50 Left anterior fascicular block no longer present Myocardial infarct finding still present Electronically Signed On 08-15-18 13:53:11 CDT by Floyd Grayson
[2018-08-15 14:04] VITALS: BP 116/70; TEMP 97.3
--- NOTE | 2018-08-15 14:18 | ECHO ---
HEIGHT: 6 ft 1 in WEIGHT: 305 lb 3.2 oz DATE OF STUDY: 08/15/[address]: Rico Quintero MD 2-DIMENSIONAL: YES M.MODE: YES DOPPLER: YES COLOR FLOW: YES TDS: YES PORTABLE: NO DEFINITY: NO BUBBLE STUDY: NO DIAGNOSIS: CHEST PAIN CARDIAC HISTORY: CATHERIZATION: YES SURGERY: YES PROSTHETIC VALVE: NO PACEMAKER: NO MEASUREMENTS (cm) DIASTOLIC (NORMALS) SYSTOLIC (NORMALS) IVSd 1.1 (0.6-1.2) LA Diam 3.9 (1.9-4.0) LVEF 52% LVIDd 5.7 (3.5-5.7) LVIDs 4.2 (2.0-3.5) %FS 27% LVPWd 1.2 (0.6-1.2) Ao Diam 3.5 (2.0-3.7) 2 DIMENSIONAL ASSESSMENT: RIGHT ATRIUM: NORMAL LEFT ATRIUM: NORMAL RIGHT VENTRICLE: NORMAL LEFT VENTRICLE: NORMAL TRICUSPID VALVE: NORMAL MITRAL VALVE: NORMAL PULMONIC VALVE: NORMAL AORTIC VALVE: SCLEROSIS PERICARDIAL EFFUSION: NONE AORTIC ROOT: NORMAL LEFT VENTRICULAR WALL MOTION: NORMAL DOPPLER/COLOR FLOW: NORMAL COMMENTS: NORMAL LEFT SIZE AND FUNCTION. NO WALL MOTION ABNORMALITY. NO EFFUSION. AORTIC SCLEROSIS. TECHNOLOGIST: Xavi RIVERA
--- NOTE | 2018-08-15 14:21 | PN ---
Date of Progress Note: 08/15/2018 Mr. Beltrán was admitted and seen on 08/13/2018 for chest pain, back pain. He had just had bypass anderson rgery in November of 2017 in [place]. Has done well from a cardiac standpoint as far as we know. He came in with chest pain and back pain. He is on chronic pain medications for his back pain. He was ruled out for myocardial infarction. An echocardiogram today did not show any pericardial effusion or wall motion abnormalities. He can go home whenever it is okay with the admitting physician. I th ink his symptoms are probably gastroesophageal reflux disease related. We will be happy to see him i n the office in the next 2 weeks. DIALLO/MARIA E Voice ID: [id number] Report ID: [id number]
[2018-08-15 14:45] VITALS: O2SAT 96
[2018-08-15] MEDS ORDERED: ENOXAPARIN 40 MG/0.4 ML SQ SCH (17:00)
== END 2018-08-15 14:50 | disposition home or self-care (01) ==
LOC: ER 08:53 → ERHOLD 10:11 → 2ND 12:07
PROVIDERS: ADMIT Internal Medicine; ATTEND Internal Medicine
DX: K81.9 Cholecystitis, unspecified (principal); I25.10 Atherosclerotic heart disease of native coronary artery without angina pectoris; E66.9 Obesity, unspecified; Z68.41 Body mass index [BMI] 40.0-44.9, adult; E11.9 Type 2 diabetes mellitus without complications; I48.91 Unspecified atrial fibrillation; N40.0 Benign prostatic hyperplasia without lower urinary tract symptoms; I10 Essential (primary) hypertension; Z95.1 Presence of aortocoronary bypass graft; Z79.01 Long term (current) use of anticoagulants
CPT/HCPCS: 36415; 71045; 71275; 76700; 80048; 80076; 81003; 81015; 83690; 83735; 83880; 84484; 85025; 85610; 87040; 87077; 87086; 87088; 87186; 87804; 93005; 93306; 93970; 96372; 96374; 99285; G0378; J0696; J1650; J7030; Q9967

== ENCOUNTER 2019-01-17 14:27 | Observation (INO) | payer OTHER ==
[2019-01-17 16:03] LABS: Absolute Lymphocytes (CBC) 1.5 K/uL (0.7-4.9); Absolute Monocytes 0.4 K/uL (0.1-1.3); Absolute Neutrophil 3.8 K/uL (1.8-8.0); Basophils % 0.4 % (0-1.3); Eosinophils % 2.4 % (0-4.4); Hematocrit 46.3 % (39.6-49.0); Lymphocytes % 25.9 % (15.3-44.8); MPV 9.7 fL (7.6-11.3); Monocytes % 6.1 % (3.3-12.3); RBC Red Blood Cell Count 5.28 M/uL (4.33-5.43)
--- NOTE | 2019-01-17 16:07 | RAD REPORT ---
EXAM DESCRIPTION: CT - Chest For Pe Angio - 01/17/2019 3:42 pm CLINICAL HISTORY: sob COMPARISON: July 2018 TECHNIQUE: Dynamically enhanced axial 3 mm thick images of the chest were obtained during administra tion of <100> mL Isovue 370 IV contrast. Coronal and oblique reconstruction images were generated and reviewed. Exam utilizes a protocol for optimal evaluation of pulmonary arterial tree. Maximum intensity projections 3D imaging was utilized All CT scans are performed using dose optimization technique as appropriate and may include automated exposure control or mA/KV adjustment according to patient size. FINDINGS: A pulmonary embolus is not seen. A thoracic aortic aneurysm is not noted. A pleural effusion is not seen. A pericardial effusion is not seen. A lung consolidation is not present. The most inferior slices demonstrate air within liver IMPRESSION: Negative for a pulmonary embolism. Air within the liver is incompletely evaluated on this exam. It could lie within the biliary tree or portal vein. If the patient has clinical symptoms to suggest bowel ischemia then a CT scan of the abd omen would be recommended
[2019-01-17 16:29] LABS: ALT/SGPT 30 U/L (12-78); AST/SGOT 20 U/L (15-37); Albumin 3.4 g/dL (3.4-5.0); Alkaline Phosphatase 90 U/L (45-117); BUN Blood Urea Nitrogen 17 mg/dL (7-18); Bicarbonate 28 mmol/L (21-32); Bilirubin Direct < 0.1 mg/dL (0-0.2); Bilirubin Total 0.4 mg/dL (0.2-1.0); Glucose Level 200 mg/dL (74-106); NT PRO-BNP 176 pg/mL (<125); Potassium 4.1 mmol/L (3.5-5.1); Protein, Total 7.4 g/dL (6.4-8.2); Sodium Level 139 mmol/L (136-145); Troponin (Emerg Dept Use Only) < 0.02 ng/mL (0.0-0.045)
[2019-01-17] MEDS ORDERED: HYDROCODONE/APAP 10/325 TAB ONE (16:45)
--- OUTSIDE RECORDS SUMMARY | 2019-01-17 16:54 | XMS REPORT | Clinical Summary ---
:1955 Author Organization [facility] Address [address] [place] [address] Care Team Providers Name Role Phone Iban Primary Care Provider Allergies No Known Allergies Medications Medication Sig Dispensed Refills Start Date End Date Status HYDROcodone-acetamino Take 1 tablet 0 Active phen (NORCO 10-325) by mouth every 10-325 mg per tablet 6 (six) hours as needed for Pain. diazePAM (VALIUM) 10 Take 10 mg by 0 Active MG tablet mouth every 6 (six) hours as needed for Anxiety. tamsulosin (FLOMAX) Take 1 capsule 30 capsule 1 12/06/2017 Active 0.4 mg Cp24 24 hr (0.4 mg total) capsule by mouth daily. amiodarone (PACERONE) Take 1 tablet 60 tablet 1 12/05/2017 12/05/2018 200 MG tablet (200 mg total) by mouth 2 (two) times daily. aspirin 325 MG tablet Take 1 tablet 0 12/06/2017 12/06/2018 (325 mg total) by mouth daily. atorvastatin Take 1 tablet 30 tablet 1 12/05/2017 12/05/2018 (LIPITOR) 40 MG (40 mg total) tablet by mouth nightly. metoprolol Take 1 tablet 60 tablet 1 12/05/2017 12/05/2018 (LOPRESSOR) 50 MG (50 mg total) tablet by mouth 2 (two) times daily. Active Problems Problem Noted Date CAD (coronary artery disease) 11/29/2017 Coronary artery disease 11/29/2017 S/P CABG x 4 11/29/2017 Chronic pain 11/29/2017 Acute blood loss anemia 11/29/2017 Thrombocytopenia 11/29/2017 Acute postoperative pain 11/29/2017 Hyperglycemia 11/29/2017 Borderline diabetes 11/29/2017 Acute respiratory insufficiency, postoperative 11/29/2017 Social History Tobacco Use Types Packs/Day Years Used Date Never Smoker Smokeless Tobacco: Never Used Alcohol Use Drinks/Week oz/Week Comments No Sex Assigned at Date Recorded Not on file Job Start Date Occupation Industry Not on file Not on file Not on file Travel History Travel Start Travel End No recent travel history available. 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 Device Shelf Model / Identifier Expiration Serial / Date Lot Sternal Zipfix Ndl Strl .[id number] - [id number] Cardiovascular N/A: SYNTHES:SYNTHES 07/16/[id number] / Implanted: Qty: 1 on 11/29/2017 by Chase Wong MD [employer] / [id number] Results Not on fileafter 01/16/2018 Insurance Payer Benefit Plan / Subscriber ID Type Phone Address Group [employer] - MEDICARE [employer] MEDICARE O xxxxxxxx [phone] [address] [place] [address] Advance Directives For more information, please contact:[address] [phone] Code Status Date Activated Date Inactivated Comments Full Code 11/28/2017 3:05 PM 12/05/2017 7:49 PM This code status was determined by: Patient Full Code 11/28/2017 2:31 PM 11/28/2017 3:05 PM This code status was determined by: Patient
--- OUTSIDE RECORDS SUMMARY | 2019-01-17 16:56 | XMS REPORT ---
:1955 [facility] Address [address] [place] [address] [address]. [address] [place] [address] Care Team Providers Name Role Phone ANGELDI BEV Unavailable Unavailable Problems This patient has no known problems. Allergies, Adverse Reactions, Alerts This patient has no known allergies or adverse reactions. Medications This patient has no known medications. Results Test Description Test Time Test Comments Text Results Atomic Results Result Comments POCT-GLUCOSE METER 2017-12-05 12:24:00 Test Item Value Reference Range Comments POC-GLUCOSE METER (BEAKER) (test 255 mg/dL 70-110 TESTED AT [address] nwfo=8112) [facility] [address] POCT-GLUCOSE [id number] 08:35:00 Test Item Value Reference Range Comments POC-GLUCOSE METER (BEAKER) 127 mg/dL 70-110 TESTED AT [address] (test gjoy=3241) [place] [id number] POCT-GLUCOSE [id number] 00:25:00 Test Item Value Reference Range Comments POC-GLUCOSE METER (BEAKER) 177 mg/dL 70-110 TESTED AT [address] (test qdgn=1207) [facility] [address] HEMOGLOBIN [id number] 14:20:00 Test Item Value Reference Range Comments HEMOGLOBIN A1C (BEAKER) (test ygey=819) 6.9 % 4.3-6.1 BASIC METABOLIC [id number] 07:34:00 Test Item Value Reference Range Comments SODIUM (BEAKER) (test 139 meq/L 136-145 mnef=577) POTASSIUM (BEAKER) (test 3.9 meq/L 3.5-5.1 czqx=275) CHLORIDE (BEAKER) (test 106 meq/L 98-107 rrrc=557) CO2 (BEAKER) (test 23 meq/L 22-29 oeqh=558) BLOOD UREA NITROGEN 16 mg/dL 7-21 (BEAKER) (test fzxc=276) CREATININE (BEAKER) (test 0.77 mg/dL 0.57-1.25 efod=046) GLUCOSE RANDOM (BEAKER) 126 mg/dL 70-105 (test ktyn=652) CALCIUM (BEAKER) (test 8.4 mg/dL 8.4-10.2 xmou=933) EGFR (BEAKER) (test mL/min/1.73 sq m INSUFFICIENT CLINICAL DATA hbox=2379) TO CALCULATE ESTIMATED GFR. CBC W/PLT COUNT & AUTO [id number] 06:38:00 Test Item Value Reference Range Comments WHITE BLOOD CELL COUNT (BEAKER) (test cxot=797) 5.9 K/ L 3.5-10.5 RED BLOOD CELL COUNT (BEAKER) (test fxyh=323) 2.75 M/ L 4.63-6.08 HEMOGLOBIN (BEAKER) (test dvxt=684) 7.6 GM/DL 13.7-17.5 HEMATOCRIT (BEAKER) (test thru=307) 25.2 % 40.1-51.0 MEAN CORPUSCULAR VOLUME (BEAKER) (test bait=995) 91.6 fL 79.0-92.2 MEAN CORPUSCULAR HEMOGLOBIN (BEAKER) (test 27.6 pg 25.7-32.2 jyzv=814) MEAN CORPUSCULAR HEMOGLOBIN CONC (BEAKER) (test 30.2 GM/DL 32.3-36.5 bsmw=525) RED CELL DISTRIBUTION WIDTH (BEAKER) (test 14.7 % 11.6-14.4 juis=319) PLATELET COUNT (BEAKER) (test ehlk=577) 209 K/CU MM 150-450 MEAN PLATELET VOLUME (BEAKER) (test tfvi=744) 11.2 fL 9.4-12.4 NUCLEATED RED BLOOD CELLS (BEAKER) (test 0 /100 WBC 0-0 frtm=531) NEUTROPHILS RELATIVE PERCENT (BEAKER) (test 64 % dbel=106) LYMPHOCYTES RELATIVE PERCENT (BEAKER) (test 25 % qrfo=800) MONOCYTES RELATIVE PERCENT (BEAKER) (test 6 % tkhr=166) EOSINOPHILS RELATIVE PERCENT (BEAKER) (test 4 % qskh=235) BASOPHILS RELATIVE PERCENT (BEAKER) (test 0 % mlno=859) NEUTROPHILS ABSOLUTE COUNT (BEAKER) (test 3.76 K/ L 1.78-5.38 ghfr=017) LYMPHOCYTES ABSOLUTE COUNT (BEAKER) (test 1.49 K/ L 1.32-3.57 nijm=154) MONOCYTES ABSOLUTE COUNT (BEAKER) (test 0.35 K/ L 0.30-0.82 lpzd=285) EOSINOPHILS ABSOLUTE COUNT (BEAKER) (test 0.21 K/ L 0.04-0.54 yhpc=380) BASOPHILS ABSOLUTE COUNT (BEAKER) (test 0.01 K/ L 0.01-0.08 vzlx=131) IMMATURE GRANULOCYTES-RELATIVE PERCENT (BEAKER) 1 % 0-1 (test sfgs=8846) POCT-GLUCOSE [id number] 21:40:00 Test Item Value Reference Range Comments POC-GLUCOSE METER (BEAKER) 171 mg/dL 70-110 TESTED AT [address] (test xpfk=7024) [place] [address] POCT-GLUCOSE [id number] 18:53:00 Test Item Value Reference Range Comments POC-GLUCOSE METER (BEAKER) 136 mg/dL 70-110 TESTED AT [address] (test lgmo=4663) [place] [address] BASIC METABOLIC [id number] 05:58:00 Test Item Value Reference Range Comments SODIUM (BEAKER) (test 139 meq/L 136-145 rraz=927) POTASSIUM (BEAKER) (test 4.3 meq/L 3.5-5.1 gegu=728) CHLORIDE (BEAKER) (test 106 meq/L 98-107 gqgz=285) CO2 (BEAKER) (test 25 meq/L 22-29 hmfs=364) BLOOD UREA NITROGEN 19 mg/dL 7-21 (BEAKER) (test wvfw=276) CREATININE (BEAKER) (test 0.74 mg/dL 0.57-1.25 uwbo=483) GLUCOSE RANDOM (BEAKER) 132 mg/dL 70-105 (test mlxb=206) CALCIUM (BEAKER) (test 8.3 mg/dL 8.4-10.2 jdeu=156) EGFR (BEAKER) (test mL/min/1.73 sq m INSUFFICIENT CLINICAL DATA kdsr=1695) TO CALCULATE ESTIMATED GFR. [id number] 05:57:00 Test Item Value Reference Range Comments MAGNESIUM (BEAKER) (test hwan=553) 1.9 mg/dL 1.6-2.6 CBC W/PLT COUNT & AUTO [id number] 05:11:00 Test Item Value Reference Range Comments WHITE BLOOD CELL COUNT (BEAKER) (test okjg=511) 7.4 K/ L 3.5-10.5 RED BLOOD CELL COUNT (BEAKER) (test mxvz=747) 2.76 M/ L 4.63-6.08 HEMOGLOBIN (BEAKER) (test jzwz=702) 7.7 GM/DL 13.7-17.5 HEMATOCRIT (BEAKER) (test vtgl=885) 24.4 % 40.1-51.0 MEAN CORPUSCULAR VOLUME (BEAKER) (test ndsn=398) 88.4 fL 79.0-92.2 MEAN CORPUSCULAR HEMOGLOBIN (BEAKER) (test 27.9 pg 25.7-32.2 hzrh=100) MEAN CORPUSCULAR HEMOGLOBIN CONC (BEAKER) (test 31.6 GM/DL 32.3-36.5 xrmw=386) RED CELL DISTRIBUTION WIDTH (BEAKER) (test 14.3 % 11.6-14.4 bzjr=442) PLATELET COUNT (BEAKER) (test fpkz=880) 162 K/CU MM 150-450 MEAN PLATELET VOLUME (BEAKER) (test lvde=475) 11.4 fL 9.4-12.4 NUCLEATED RED BLOOD CELLS (BEAKER) (test 0 /100 WBC 0-0 paqc=418) NEUTROPHILS RELATIVE PERCENT (BEAKER) (test 68 % jpjj=648) LYMPHOCYTES RELATIVE PERCENT (BEAKER) (test 22 % lcmq=547) MONOCYTES RELATIVE PERCENT (BEAKER) (test 7 % nwhr=943) EOSINOPHILS RELATIVE PERCENT (BEAKER) (test 3 % cdog=329) BASOPHILS RELATIVE PERCENT (BEAKER) (test 0 % xzqm=400) NEUTROPHILS ABSOLUTE COUNT (BEAKER) (test 5.05 K/ L 1.78-5.38 yjbp=743) LYMPHOCYTES ABSOLUTE COUNT (BEAKER) (test 1.62 K/ L 1.32-3.57 mvfa=661) MONOCYTES ABSOLUTE COUNT (BEAKER) (test 0.49 K/ L 0.30-0.82 jflc=266) EOSINOPHILS ABSOLUTE COUNT (BEAKER) (test 0.22 K/ L 0.04-0.54 fwlt=893) BASOPHILS ABSOLUTE COUNT (BEAKER) (test 0.01 K/ L 0.01-0.08 ozbu=787) IMMATURE GRANULOCYTES-RELATIVE PERCENT (BEAKER) 0 % 0-1 (test yaib=8586) POCT-GLUCOSE [id number] 21:45:00 Test Item Value Reference Range Comments POC-GLUCOSE METER (BEAKER) 177 mg/dL 70-110 TESTED AT [address] (test cwtj=5399) [facility] [address] POCT-GLUCOSE [id number] 18:49:00 Test Item Value Reference Range Comments POC-GLUCOSE METER (BEAKER) 216 mg/dL 70-110 TESTED AT [address] (test edpw=6248) [facility] [address] POCT-GLUCOSE [id number] 09:56:00 Test Item Value Reference Range Comments POC-GLUCOSE METER (BEAKER) 202 mg/dL 70-110 TESTED AT [address] (test lncj=2385) [facility] [address] [id number] 09:37:00 Test Item Value Reference Range Comments PROTIME (BEAKER) (test nvpa=084) 14.5 seconds 11.7-14.7 INR (BEAKER) (test tozu=994) 1.1 <=5.9 PARTIAL THROMBOPLASTIN TIME (BEAKER) (test 32.4 seconds 22.5-36.0 kjkg=982) RECOMMENDED COUMADIN/WARFARIN INR THERAPY RANGESSTANDARD DOSE: 2.0 - 3.0 Includes: PROPHYLAXIS forvenous thrombosis, systemic embolization; TREATMENT for venous thrombosis and/or pulmonary embolus.HIGH RISK: Target INR is 2.5-3.5 for patients with mechanical heart valves.BASIC METABOLIC [id number] 09:24: 00 Test Item Value Reference Range Comments SODIUM (BEAKER) (test 138 meq/L 136-145 ddhx=766) POTASSIUM (BEAKER) (test 3.7 meq/L 3.5-5.1 utyn=117) CHLORIDE (BEAKER) (test 103 meq/L 98-107 qwvq=888) CO2 (BEAKER) (test 27 meq/L 22-29 dkgl=651) BLOOD UREA NITROGEN 17 mg/dL 7-21 (BEAKER) (test uqtq=281) CREATININE (BEAKER) (test 0.80 mg/dL 0.57-1.25 cthf=490) GLUCOSE RANDOM (BEAKER) 162 mg/dL 70-105 (test pkvr=501) CALCIUM (BEAKER) (test 8.7 mg/dL 8.4-10.2 erry=904) EGFR (BEAKER) (test mL/min/1.73 sq m INSUFFICIENT CLINICAL DATA skxo=9768) TO CALCULATE ESTIMATED GFR. [id number] 09:16:00 Test Item Value Reference Range Comments MAGNESIUM (BEAKER) (test naac=124) 1.8 mg/dL 1.6-2.6 CBC W/PLT COUNT & AUTO [id number] 08:53:00 Test Item Value Reference Range Comments WHITE BLOOD CELL COUNT (BEAKER) (test qtzh=070) 8.5 K/ L 3.5-10.5 RED BLOOD CELL COUNT (BEAKER) (test nzbi=670) 2.85 M/ L 4.63-6.08 HEMOGLOBIN (BEAKER) (test ddkk=950) 8.0 GM/DL 13.7-17.5 HEMATOCRIT (BEAKER) (test mthp=042) 25.2 % 40.1-51.0 MEAN CORPUSCULAR VOLUME (BEAKER) (test ifey=825) 88.4 fL 79.0-92.2 MEAN CORPUSCULAR HEMOGLOBIN (BEAKER) (test 28.1 pg 25.7-32.2 ftbv=373) MEAN CORPUSCULAR HEMOGLOBIN CONC (BEAKER) (test 31.7 GM/DL 32.3-36.5 qikd=864) RED CELL DISTRIBUTION WIDTH (BEAKER) (test 14.1 % 11.6-14.4 dara=070) PLATELET COUNT (BEAKER) (test wctq=328) 140 K/CU MM 150-450 MEAN PLATELET VOLUME (BEAKER) (test mguu=789) 11.5 fL 9.4-12.4 NUCLEATED RED BLOOD CELLS (BEAKER) (test 0 /100 WBC 0-0 kxxh=937) NEUTROPHILS RELATIVE PERCENT (BEAKER) (test 67 % qgbp=165) LYMPHOCYTES RELATIVE PERCENT (BEAKER) (test 24 % neud=854) MONOCYTES RELATIVE PERCENT (BEAKER) (test 7 % odkv=052) EOSINOPHILS RELATIVE PERCENT (BEAKER) (test 2 % ftqn=255) BASOPHILS RELATIVE PERCENT (BEAKER) (test 0 % ngkv=652) NEUTROPHILS ABSOLUTE COUNT (BEAKER) (test 5.67 K/ L 1.78-5.38 bgub=521) LYMPHOCYTES ABSOLUTE COUNT (BEAKER) (test 2.08 K/ L 1.32-3.57 uvzk=087) MONOCYTES ABSOLUTE COUNT (BEAKER) (test 0.58 K/ L 0.30-0.82 qunk=164) EOSINOPHILS ABSOLUTE COUNT (BEAKER) (test 0.14 K/ L 0.04-0.54 dsbw=811) BASOPHILS ABSOLUTE COUNT (BEAKER) (test 0.01 K/ L 0.01-0.08 sjyx=011) IMMATURE GRANULOCYTES-RELATIVE PERCENT (BEAKER) 0 % 0-1 (test wekq=4365) POCT-GLUCOSE [id number] 21:32:00 Test Item Value Reference Range Comments POC-GLUCOSE METER (BEAKER) 200 mg/dL 70-110 TESTED AT [address] (test zqps=8777) [place] [address] POCT-GLUCOSE [id number] 17:42:00 Test Item Value Reference Range Comments POC-GLUCOSE METER (BEAKER) 191 mg/dL 70-110 TESTED AT [address] (test jacq=2040) [place] [address] HEMOGLOBIN AND [id number] 15:51:00 Test Item Value Reference Range Comments HEMOGLOBIN (BEAKER) (test ivgn=657) 7.4 GM/DL 13.7-17.5 HEMATOCRIT (BEAKER) (test yflj=070) 23.9 % 40.1-51.0 POCT-GLUCOSE [id number] 13:02:00 Test Item Value Reference Range Comments POC-GLUCOSE METER (BEAKER) 190 mg/dL 70-110 TESTED AT [address] (test elzu=3756) [place] [address] POCT-GLUCOSE [id number] 08:10:00 Test Item Value Reference Range Comments POC-GLUCOSE METER (BEAKER) 176 mg/dL 70-110 TESTED AT [address] (test hzet=5369) [place] [address] RAD, CHEST, 1 VIEW, NON [id number] 07:47:00Reason for exam:->pl effusionShould this be performed at the bedside?->YesFINAL REPORT Chest one view compared to November 30 Discussion: Mild pulmonary congestion and probable left lower lung atelectasis. I could not exclude small left effusion. No pneumothorax. IMPRESSIONS: Similar cardiopulmonary appearance. Signed: Atul Mcdonougheport Verified Date/Time: 12/01/2017 07:47: 00 Reading Location: [facility] Radiology Reading Room BASIC METABOLIC [id number] 05:25:00 Test Item Value Reference Range Comments SODIUM (BEAKER) (test 138 meq/L 136-145 krnf=020) POTASSIUM (BEAKER) (test 3.9 meq/L 3.5-5.1 vigg=249) CHLORIDE (BEAKER) (test 106 meq/L 98-107 wbhq=466) CO2 (BEAKER) (test 26 meq/L 22-29 dlvo=307) BLOOD UREA NITROGEN 13 mg/dL 7-21 (BEAKER) (test ftwx=010) CREATININE (BEAKER) (test 0.75 mg/dL 0.57-1.25 mcjc=268) GLUCOSE RANDOM (BEAKER) 157 mg/dL 70-105 (test qkvq=060) CALCIUM (BEAKER) (test 8.2 mg/dL 8.4-10.2 wiju=247) EGFR (BEAKER) (test mL/min/1.73 sq m INSUFFICIENT CLINICAL DATA pnfz=0356) TO CALCULATE ESTIMATED GFR. [id number] 05:18:00 Test Item Value Reference Range Comments MAGNESIUM (BEAKER) (test ubzt=792) 1.8 mg/dL 1.6-2.6 CBC W/PLT COUNT & AUTO [id number] 04:59:00 Test Item Value Reference Range Comments WHITE BLOOD CELL COUNT (BEAKER) (test mkay=379) 7.8 K/ L 3.5-10.5 RED BLOOD CELL COUNT (BEAKER) (test povw=006) 2.55 M/ L 4.63-6.08 HEMOGLOBIN (BEAKER) (test ndhu=488) 7.1 GM/DL 13.7-17.5 HEMATOCRIT (BEAKER) (test dixr=396) 22.5 % 40.1-51.0 MEAN CORPUSCULAR VOLUME (BEAKER) (test mrxj=177) 88.2 fL 79.0-92.2 MEAN CORPUSCULAR HEMOGLOBIN (BEAKER) (test 27.8 pg 25.7-32.2 rgro=986) MEAN CORPUSCULAR HEMOGLOBIN CONC (BEAKER) (test 31.6 GM/DL 32.3-36.5 khjp=050) RED CELL DISTRIBUTION WIDTH (BEAKER) (test 14.2 % 11.6-14.4 aedy=016) PLATELET COUNT (BEAKER) (test jlpa=393) 113 K/CU MM 150-450 MEAN PLATELET VOLUME (BEAKER) (test omtd=628) 11.9 fL 9.4-12.4 NUCLEATED RED BLOOD CELLS (BEAKER) (test 0 /100 WBC 0-0 pkeu=759) NEUTROPHILS RELATIVE PERCENT (BEAKER) (test 72 % fiiq=523) LYMPHOCYTES RELATIVE PERCENT (BEAKER) (test 18 % hcxh=990) MONOCYTES RELATIVE PERCENT (BEAKER) (test 9 % nwva=461) EOSINOPHILS RELATIVE PERCENT (BEAKER) (test 1 % vufj=430) BASOPHILS RELATIVE PERCENT (BEAKER) (test 0 % toov=111) NEUTROPHILS ABSOLUTE COUNT (BEAKER) (test 5.64 K/ L 1.78-5.38 dafe=780) LYMPHOCYTES ABSOLUTE COUNT (BEAKER) (test 1.36 K/ L 1.32-3.57 qpmm=514) MONOCYTES ABSOLUTE COUNT (BEAKER) (test 0.70 K/ L 0.30-0.82 gwcf=891) EOSINOPHILS ABSOLUTE COUNT (BEAKER) (test 0.05 K/ L 0.04-0.54 worb=042) BASOPHILS ABSOLUTE COUNT (BEAKER) (test 0.01 K/ L 0.01-0.08 azam=358) IMMATURE GRANULOCYTES-RELATIVE PERCENT (BEAKER) 0 % 0-1 (test qnyx=0118) POCT-GLUCOSE [id number] 22:11:00 Test Item Value Reference Range Comments POC-GLUCOSE METER (BEAKER) 190 mg/dL 70-110 TESTED AT [address] (test wdki=4976) [facility] [address] POCT-GLUCOSE [id number] 16:58:00 Test Item Value Reference Range Comments POC-GLUCOSE METER (BEAKER) 193 mg/dL 70-110 TESTED AT [address] (test jzkw=1288) [place] [address] CBC (HEMOGRAM ONLY)2017-11-30 13:05:00 Test Item Value Reference Range Comments WHITE BLOOD CELL COUNT (BEAKER) (test iwok=113) 9.1 K/ L 3.5-10.5 RED BLOOD CELL COUNT (BEAKER) (test zfyc=593) 3.01 M/ L 4.63-6.08 HEMOGLOBIN (BEAKER) (test rrel=665) 8.3 GM/DL 13.7-17.5 HEMATOCRIT (BEAKER) (test cuqx=066) 26.5 % 40.1-51.0 MEAN CORPUSCULAR VOLUME (BEAKER) (test oipl=357) 88.0 fL 79.0-92.2 MEAN CORPUSCULAR HEMOGLOBIN (BEAKER) (test 27.6 pg 25.7-32.2 gftu=832) MEAN CORPUSCULAR HEMOGLOBIN CONC (BEAKER) (test 31.3 GM/DL 32.3-36.5 vnbt=417) RED CELL DISTRIBUTION WIDTH (BEAKER) (test 14.1 % 11.6-14.4 uwfl=265) PLATELET COUNT (BEAKER) (test ovho=120) 128 K/CU MM 150-450 MEAN PLATELET VOLUME (BEAKER) (test tpui=328) 11.8 fL 9.4-12.4 NUCLEATED RED BLOOD CELLS (BEAKER) (test 0 /100 WBC 0-0 uyhb=091) POCT-GLUCOSE [id number] 12:06:00 Test Item Value Reference Range Comments POC-GLUCOSE METER (BEAKER) 142 mg/dL 70-110 TESTED AT [address] (test gtqk=0369) [place] [address] POCT-GLUCOSE [id number] 09:23:00 Test Item Value Reference Range Comments POC-GLUCOSE METER (BEAKER) 108 mg/dL 70-110 TESTED AT [address] (test exsz=4943) [place] [address] [id number] 05:44:00 Test Item Value Reference Range Comments ACTIVATED CLOTTING TIME 103 sec TESTED AT [place] [address] [facility] (BEAKER) (test dgjo=003) [place] [address] [id number] 05:44:00 Test Item Value Reference Range Comments ACTIVATED CLOTTING TIME 439 sec TESTED AT [address] [facility] (test fykz=731) [place] [address] [id number] 05:44:00 Test Item Value Reference Range Comments ACTIVATED CLOTTING TIME 604 sec TESTED AT [address] (BEAKER) (test njna=493) [place] [address] [id number] 05:44:00 Test Item Value Reference Range Comments ACTIVATED CLOTTING TIME 444 sec TESTED AT [address] ([facility]) (test lvmc=046) [place] [address] POCT-GLUCOSE [id number] 04:45:00 Test Item Value Reference Range Comments POC-GLUCOSE METER ([facility]) 122 mg/dL 70-110 TESTED AT [address] (test ggfw=2959) [place] [address] RAD, CHEST, 1 VIEW, NON [id number] 04:40:00while patient is intubated or has chest [...] MDReport Verified Date/Time: 11/30/2017 04:40:05 Reading Location: [address] Reading Room Electronically signed by: CHRISTINA ARAIZA on 04:40 AMCBC W/PLT COUNT & AUTO [id number] 03:49:00 Test Item Value Reference Range Comments WHITE BLOOD CELL COUNT (BEAKER) (test qxbq=111) 7.6 K/ L 3.5-10.5 RED BLOOD CELL COUNT (BEAKER) (test rcex=338) 3.09 M/ L 4.63-6.08 HEMOGLOBIN (BEAKER) (test ywoi=726) 8.5 GM/DL 13.7-17.5 HEMATOCRIT (BEAKER) (test ioyn=368) 27.4 % 40.1-51.0 MEAN CORPUSCULAR VOLUME (BEAKER) (test myqj=524) 88.7 fL 79.0-92.2 MEAN CORPUSCULAR HEMOGLOBIN (BEAKER) (test 27.5 pg 25.7-32.2 kfjo=042) MEAN CORPUSCULAR HEMOGLOBIN CONC (BEAKER) (test 31.0 GM/DL 32.3-36.5 yzlq=031) RED CELL DISTRIBUTION WIDTH (BEAKER) (test 14.2 % 11.6-14.4 uteg=256) PLATELET COUNT (BEAKER) (test mbum=386) 123 K/CU MM 150-450 MEAN PLATELET VOLUME (BEAKER) (test fgmf=838) 11.3 fL 9.4-12.4 NUCLEATED RED BLOOD CELLS (BEAKER) (test 0 /100 WBC 0-0 pkdn=588) NEUTROPHILS RELATIVE PERCENT (BEAKER) (test 84 % saas=960) LYMPHOCYTES RELATIVE PERCENT (BEAKER) (test 9 % ujwg=769) MONOCYTES RELATIVE PERCENT (BEAKER) (test 6 % xsfh=563) EOSINOPHILS RELATIVE PERCENT (BEAKER) (test 0 % rkhw=947) BASOPHILS RELATIVE PERCENT (BEAKER) (test 0 % vnzg=467) NEUTROPHILS ABSOLUTE COUNT (BEAKER) (test 6.44 K/ L 1.78-5.38 mcjy=355) LYMPHOCYTES ABSOLUTE COUNT (BEAKER) (test 0.65 K/ L 1.32-3.57 rfpv=557) MONOCYTES ABSOLUTE COUNT (BEAKER) (test 0.49 K/ L 0.30-0.82 qiiz=752) EOSINOPHILS ABSOLUTE COUNT (BEAKER) (test 0.01 K/ L 0.04-0.54 vicw=925) BASOPHILS ABSOLUTE COUNT (BEAKER) (test 0.01 K/ L 0.01-0.08 xljp=697) IMMATURE GRANULOCYTES-RELATIVE PERCENT (BEAKER) 1 % 0-1 (test adlj=1864) BASIC METABOLIC [id number] 03:49:00 Test Item Value Reference Range Comments SODIUM (BEAKER) (test 141 meq/L 136-145 sgbt=181) POTASSIUM (BEAKER) (test 4.0 meq/L 3.5-5.1 nmhg=256) CHLORIDE (BEAKER) (test 110 meq/L 98-107 afxz=874) CO2 (BEAKER) (test 24 meq/L 22-29 fkfu=548) BLOOD UREA NITROGEN 10 mg/dL 7-21 (BEAKER) (test icvp=418) CREATININE (BEAKER) (test 0.71 mg/dL 0.57-1.25 tadl=819) GLUCOSE RANDOM (BEAKER) 147 mg/dL 70-105 (test utmv=562) CALCIUM (BEAKER) (test 7.8 mg/dL 8.4-10.2 sumj=285) EGFR (BEAKER) (test mL/min/1.73 sq m INSUFFICIENT CLINICAL DATA nnfn=0132) TO CALCULATE ESTIMATED GFR. [id number] 03:42:00 Test Item Value Reference Range Comments MAGNESIUM (BEAKER) (test totk=635) 1.9 mg/dL 1.6-2.6 POCT-GLUCOSE [id number] 03:04:00 Test Item Value Reference Range Comments POC-GLUCOSE METER (BEAKER) 143 mg/dL 70-110 TESTED AT [address] (test zhrt=3315) [place] [id number] POCT-GLUCOSE [id number] 02:04:00 Test Item Value Reference Range Comments POC-GLUCOSE METER (BEAKER) 146 mg/dL 70-110 TESTED AT [address] (test qbxk=4568) [place] [id number] POCT-GLUCOSE [id number] 01:04:00 Test Item Value Reference Range Comments POC-GLUCOSE METER (BEAKER) 203 mg/dL 70-110 TESTED AT [address] (test eqcq=2441) [place] [address] [id number] 01:03:00 Test Item Value Reference Range Comments POTASSIUM (BEAKER) (test hags=832) 4.3 meq/L 3.5-5.1 [id number] 01:03:00 Test Item Value Reference Range Comments MAGNESIUM (BEAKER) (test bhkn=745) 2.1 mg/dL 1.6-2.6 CALCIUM, [id number] 00:29:00 Test Item Value Reference Range Comments CALCIUM IONIZED (BEAKER) (test oqzt=268) 1.08 mmol/L 1.12-1.27 PH, BLOOD (BEAKER) (test rxjx=7387) 7.39 POCT-GLUCOSE [id number] 00:09:00 Test Item Value Reference Range Comments POC-GLUCOSE METER (BEAKER) 214 mg/dL 70-110 TESTED AT [address] (test knda=3717) [place] [id number] POCT-GLUCOSE [id number] 22:51:00 Test Item Value Reference Range Comments POC-GLUCOSE METER (BEAKER) 179 mg/dL 70-110 TESTED AT [address] (test qmnq=5533) [place] [id number] POCT-GLUCOSE [id number] 22:13:00 Test Item Value Reference Range Comments POC-GLUCOSE METER (BEAKER) 206 mg/dL 70-110 TESTED AT [address] (test usno=2903) [place] [id number] BLOOD GAS, [id number] 21:08:00 Test Item Value Reference Range Comments PH ARTERIAL (BEAKER) (test ihnf=947) 7.35 7.35-7.45 PCO2 ARTERIAL (BEAKER) (test molu=385) 43 mmHg 35-45 PO2 ARTERIAL (BEAKER) (test jbar=627) 136 mmHg 80-90 O2 SATURATION ARTERIAL (BEAKER) (test clwo=060) 98.6 % 96.0-97.0 HCO3 ARTERIAL (BEAKER) (test tsse=932) 23 mmol/L 21-29 BASE EXCESS ARTERIAL (BEAKER) (test vvxq=983) -2.1 mmol/L -2.0-3.0 PATIENT TEMPERATURE (BEAKER) (test clzn=9170) 37.1 C FIO2 (BEAKER) (test bfqr=5426) 36.0 % Post extubation ABGPOCT-GLUCOSE [id number] 21:03:00 Test Item Value Reference Range Comments POC-GLUCOSE METER (BEAKER) 197 mg/dL 70-110 TESTED AT [address] (test xudz=7226) [place] [id number] POCT-GLUCOSE [id number] 20:47:00 Test Item Value Reference Range Comments POC-GLUCOSE METER (BEAKER) 197 mg/dL 70-110 TESTED AT [address] (test pvea=3997) [place] [address] [id number] 20:10:00 Test Item Value Reference Range Comments MAGNESIUM (BEAKER) (test wmww=177) 2.3 mg/dL 1.6-2.6 Check Serum Magnesium level 2 hours after IV magnesium replacement.POCT-GLUCOSE [id number] 20:02:00 Test Item Value Reference Range Comments POC-GLUCOSE METER (BEAKER) 234 mg/dL 70-110 TESTED AT [address] (test hdxt=0090) [place] [id number] BLOOD GAS, [id number] 19:57:00 Test Item Value Reference Range Comments PH ARTERIAL (BEAKER) (test wifo=993) 7.36 7.35-7.45 PCO2 ARTERIAL (BEAKER) (test vpct=241) 41 mmHg 35-45 PO2 ARTERIAL (BEAKER) (test mqnh=204) 121 mmHg 80-90 O2 SATURATION ARTERIAL (BEAKER) (test yrkp=268) 98.2 % 96.0-97.0 HCO3 ARTERIAL (BEAKER) (test gdmv=251) 23 mmol/L 21-29 BASE EXCESS ARTERIAL (BEAKER) (test uqjm=597) -2.7 mmol/L -2.0-3.0 PATIENT TEMPERATURE (BEAKER) (test imfc=5780) 37.2 C FIO2 (BEAKER) (test gkux=7775) 40.0 % POCT-GLUCOSE [id number] 18:44:00 Test Item Value Reference Range Comments POC-GLUCOSE METER (BEAKER) 209 mg/dL 70-110 TESTED AT [address] (test iymz=7162) [place] [address] BASIC METABOLIC [id number] 16:13:00 Test Item Value Reference Range Comments SODIUM (BEAKER) (test 141 meq/L 136-145 fweq=996) POTASSIUM (BEAKER) (test 4.4 meq/L 3.5-5.1 Specimen slightly sfov=431) hemolyzed CHLORIDE (BEAKER) (test 112 meq/L 98-107 qodi=591) CO2 (BEAKER) (test 22 meq/L 22-29 ulto=478) BLOOD UREA NITROGEN 13 mg/dL 7-21 (BEAKER) (test arux=029) CREATININE (BEAKER) (test 0.73 mg/dL 0.57-1.25 Specimen slightly nisz=546) hemolyzed GLUCOSE RANDOM (BEAKER) 179 mg/dL 70-105 (test iczb=175) CALCIUM (BEAKER) (test 7.5 mg/dL 8.4-10.2 xwoy=050) EGFR (BEAKER) (test mL/min/1.73 sq m INSUFFICIENT CLINICAL DATA frde=9849) TO CALCULATE ESTIMATED GFR. RAD, CHEST, 1 VIEW, NON [id number] 16:13:00Reason for exam:->intubated, chest tubesShould this be [...] Verified Date /Time: 11/29/2017 16:13:26 Reading Location: [facility] Radiology Reading Room [id number] 16:12:00 Test Item Value Reference Range Comments PARTIAL THROMBOPLASTIN TIME (BEAKER) (test 31.4 seconds 22.5-36.0 uekk=036) PROTHROMBIN TIME/[id number] 16:11:00 Test Item Value Reference Range Comments PROTIME (BEAKER) (test lnxc=984) 17.6 seconds 11.7-14.7 INR (BEAKER) (test nqmt=407) 1.5 <=5.9 RECOMMENDED COUMADIN/WARFARIN INR THERAPY RANGESSTANDARD DOSE: 2.0 - 3.0 Includes: PROPHYLAXIS forvenous thrombosis, systemic embolization; TREATMENT for venous thrombosis and/or pulmonary embolus.HIGH RISK: Target INR is 2.5-3.5 for patients with mechanical heart valves.[id number] 16:11:00 Test Item Value Reference Range Comments MAGNESIUM (BEAKER) (test 1.7 mg/dL 1.6-2.6 Specimen slightly hemolyzed nxta=745) LACTIC ACID, ARTERIAL, WHOLE [id number] 16:06:00 Test Item Value Reference Range Comments LACTATE BLOOD ARTERIAL (2) 1.2 mmol/L 0.5-2.2 Specimen slightly hemolyzed (BEAKER) (test stfw=6037) Effective 02/18/2016: Units/Reference Range ChangeNew: 0.5-2.2 mmol/L Previous: 5 -20 mg/dLCBC W/PLT COUNT & AUTO [id number] 16:02:00 Test Item Value Reference Range Comments WHITE BLOOD CELL COUNT (BEAKER) (test vgon=243) 11.5 K/ L 3.5-10.5 RED BLOOD CELL COUNT (BEAKER) (test utgl=966) 3.42 M/ L 4.63-6.08 HEMOGLOBIN (BEAKER) (test svhi=715) 9.6 GM/DL 13.7-17.5 HEMATOCRIT (BEAKER) (test zmlu=285) 30.6 % 40.1-51.0 MEAN CORPUSCULAR VOLUME (BEAKER) (test kyql=218) 89.5 fL 79.0-92.2 MEAN CORPUSCULAR HEMOGLOBIN (BEAKER) (test 28.1 pg 25.7-32.2 qotm=236) MEAN CORPUSCULAR HEMOGLOBIN CONC (BEAKER) (test 31.4 GM/DL 32.3-36.5 pioc=016) RED CELL DISTRIBUTION WIDTH (BEAKER) (test 14.0 % 11.6-14.4 eeay=662) PLATELET COUNT (BEAKER) (test vfxt=142) 100 K/CU MM 150-450 MEAN PLATELET VOLUME (BEAKER) (test rfdl=348) 10.7 fL 9.4-12.4 NUCLEATED RED BLOOD CELLS (BEAKER) (test 0 /100 WBC 0-0 ypjc=478) NEUTROPHILS RELATIVE PERCENT (BEAKER) (test 80 % nuit=809) LYMPHOCYTES RELATIVE PERCENT (BEAKER) (test 11 % qcjv=209) MONOCYTES RELATIVE PERCENT (BEAKER) (test 8 % nzxt=721) EOSINOPHILS RELATIVE PERCENT (BEAKER) (test 0 % hklm=317) BASOPHILS RELATIVE PERCENT (BEAKER) (test 0 % yhiz=288) NEUTROPHILS ABSOLUTE COUNT (BEAKER) (test 9.14 K/ L 1.78-5.38 ttyg=503) LYMPHOCYTES ABSOLUTE COUNT (BEAKER) (test 1.25 K/ L 1.32-3.57 snel=363) MONOCYTES ABSOLUTE COUNT (BEAKER) (test 0.93 K/ L 0.30-0.82 dbpo=128) EOSINOPHILS ABSOLUTE COUNT (BEAKER) (test 0.05 K/ L 0.04-0.54 gtqn=568) BASOPHILS ABSOLUTE COUNT (BEAKER) (test 0.02 K/ L 0.01-0.08 zedm=343) IMMATURE GRANULOCYTES-RELATIVE PERCENT (BEAKER) 1 % 0-1 (test aeyj=5300) OXYGEN SATURATION, [id number] 15:54:00 Test Item Value Reference Range Comments O2 SATURATION (MEASURED) (BEAKER) (test yudy=2987) 64.9 % From distal port of IJ central venous catheterSODIUM NA-STAT [id number] 15:54 :00 Test Item Value Reference Range Comments SODIUM (BEAKER) (test jkwf=340) 138 meq/L 135-148 POTASSIUM-STAT [id number] 15:54:00 Test Item Value Reference Range Comments POTASSIUM (BEAKER) (test lrjx=468) 4.2 meq/L 3.6-5.5 BLOOD GAS, [id number] 15:54:00 Test Item Value Reference Range Comments PH ARTERIAL (BEAKER) (test fnvk=856) 7.33 7.35-7.45 PCO2 ARTERIAL (BEAKER) (test gkht=726) 46 mmHg 35-45 PO2 ARTERIAL (BEAKER) (test cumx=223) 155 mmHg 80-90 O2 SATURATION ARTERIAL (BEAKER) (test zqph=365) 98.9 % 96.0-97.0 HCO3 ARTERIAL (BEAKER) (test xojt=166) 24 mmol/L 21-29 BASE EXCESS ARTERIAL (BEAKER) (test obub=166) -2.4 mmol/L -2.0-3.0 PATIENT TEMPERATURE (BEAKER) (test kjvi=6191) 35.4 C FIO2 (BEAKER) (test xfza=5857) 60.0 % CALCIUM, [id number] 15:54:00 Test Item Value Reference Range Comments CALCIUM IONIZED (BEAKER) (test ipob=728) 1.06 mmol/L 1.12-1.27 PH, BLOOD (BEAKER) (test mdvu=8756) 7.31 GLUCOSE-STAT [id number] 15:54:00 Test Item Value Reference Range Comments GLUCOSE RANDOM (BEAKER) (test gsgi=608) 173 mg/dL 70-110 HGB/HCT (H&H) - STAT [id number] 15:54:00 Test Item Value Reference Range Comments HEMOGLOBIN (BEAKER) (test cljo=676) 10.3 g/dL 13.0-16.8 HEMATOCRIT (BEAKER) (test nwpi=371) 30.0 % 40.0-50.0 THROMBOELASTOGRAPH (TEG)[id number] 15:16:00 Test Item Value Reference Range Comments TEG ACTIVATED CLOTTING TIME (BEAKER) (test 5.5 minutes 4.0-7.0 stkt=3594) TEG FIBRINOGEN ACTIVITY (BEAKER) (test 62.6 degrees 61.0-73.0 vxtn=2811) TEG PLT. AGGREGATION (BEAKER) (test kmcv=6649) 52.3 MM 55.0-65.0 TGH ACTIVATED CLOTTING TIME (BEAKER) (test 5.5 minutes 4.0-7.0 ktox=5994) TGH FIBRINOGEN ACTIVITY (BEAKER) (test 65.7 degrees 61.0-73.0 eoyi=3120) TGH PLT. AGGREGATION (BEAKER) (test vozs=0023) 56.4 MM 55.0-65.0 PLATELET [id number] 14:50:00 Test Item Value Reference Range Comments PLATELET COUNT (BEAKER) (test jqsu=404) 98 K/CU MM 150-450 [id number] 14:27:00 Test Item Value Reference Range Comments FIBRINOGEN LEVEL (BEAKER) (test ptcr=151) 176 mg/dl 225-434 PROTHROMBIN TIME/[id number] 14:14:00 Test Item Value Reference Range Comments PROTIME (BEAKER) (test uzij=966) 20.7 seconds 11.7-14.7 INR (BEAKER) (test vfru=841) 1.8 <=5.9 RECOMMENDED COUMADIN/WARFARIN INR THERAPY RANGESSTANDARD DOSE: 2.0 - 3.0 Includes: PROPHYLAXIS forvenous thrombosis, systemic embolization; TREATMENT for venous thrombosis and/or pulmonary embolus.HIGH RISK: Target INR is 2.5-3.5 for patients with mechanical heart valves.[id number] 14:14:00 Test Item Value Reference Range Comments PARTIAL THROMBOPLASTIN TIME (BEAKER) (test 30.2 seconds 22.5-36.0 cpyc=682) CALCIUM, [id number] 13:55:00 Test Item Value Reference Range Comments CALCIUM IONIZED (BEAKER) (test mqbg=134) 1.13 mmol/L 1.12-1.27 PH, BLOOD (BEAKER) (test pqii=2858) 7.30 BLOOD GAS, [id number] 13:55:00 Test Item Value Reference Range Comments PH ARTERIAL (BEAKER) (test oazg=918) 7.32 7.35-7.45 PCO2 ARTERIAL (BEAKER) (test vgnb=425) 49 mmHg 35-45 PO2 ARTERIAL (BEAKER) (test lzna=469) 358 mmHg 80-90 O2 SATURATION ARTERIAL (BEAKER) (test glvs=419) 99.7 % 96.0-97.0 HCO3 ARTERIAL (BEAKER) (test mxyv=396) 25 mmol/L 21-29 BASE EXCESS ARTERIAL (BEAKER) (test ccqp=553) -2.1 mmol/L -2.0-3.0 PATIENT TEMPERATURE (BEAKER) (test xrsa=1639) 36.0 C FIO2 (BEAKER) (test znlw=1318) 100.0 % GLUCOSE-STAT [id number] 13:55:00 Test Item Value Reference Range Comments GLUCOSE RANDOM (BEAKER) (test lmnl=772) 201 mg/dL 70-110 HGB/HCT (H&H) - STAT [id number] 13:55:00 Test Item Value Reference Range Comments HEMOGLOBIN (BEAKER) (test awls=721) 9.7 g/dL 13.0-16.8 HEMATOCRIT (BEAKER) (test rjgl=835) 29.0 % 40.0-50.0 SODIUM NA-STAT [id number] 13:54:00 Test Item Value Reference Range Comments SODIUM (BEAKER) (test fphq=054) 137 meq/L 135-148 POTASSIUM-STAT [id number] 13:54:00 Test Item Value Reference Range Comments POTASSIUM (BEAKER) (test rpfv=162) 3.9 meq/L 3.6-5.5 BLOOD GAS, [id number] 13:22:00 Test Item Value Reference Range Comments PH ARTERIAL (BEAKER) (test ukhd=418) 7.32 7.35-7.45 PCO2 ARTERIAL (BEAKER) (test izph=238) 50 mmHg 35-45 PO2 ARTERIAL (BEAKER) (test uyrt=867) 284 mmHg 80-90 O2 SATURATION ARTERIAL (BEAKER) (test ptyy=908) 99.6 % 96.0-97.0 HCO3 ARTERIAL (BEAKER) (test pskj=593) 25 mmol/L 21-29 BASE EXCESS ARTERIAL (BEAKER) (test jgcl=246) -1.2 mmol/L -2.0-3.0 PATIENT TEMPERATURE (BEAKER) (test uhgc=8856) 36.5 C FIO2 (BEAKER) (test jlal=5132) 80.0 % GLUCOSE-STAT [id number] 13:22:00 Test Item Value Reference Range Comments GLUCOSE RANDOM (BEAKER) (test fkvr=427) 191 mg/dL 70-110 HGB/HCT (H&H) - STAT [id number] 13:22:00 Test Item Value Reference Range Comments HEMOGLOBIN (BEAKER) (test dqzy=549) 9.3 g/dL 13.0-16.8 HEMATOCRIT (BEAKER) (test muje=526) 27.0 % 40.0-50.0 SODIUM NA-STAT [id number] 13:18:00 Test Item Value Reference Range Comments SODIUM (BEAKER) (test pamx=095) 136 meq/L 135-148 POTASSIUM-STAT [id number] 13:18:00 Test Item Value Reference Range Comments POTASSIUM (BEAKER) (test dpop=957) 4.6 meq/L 3.6-5.5 BLOOD GAS, [id number] 12:39:00 Test Item Value Reference Range Comments PH ARTERIAL (BEAKER) (test wwxv=070) 7.40 7.35-7.45 PCO2 ARTERIAL (BEAKER) (test opgs=777) 39 mmHg 35-45 PO2 ARTERIAL (BEAKER) (test sdly=970) 191 mmHg 80-90 O2 SATURATION ARTERIAL (BEAKER) (test raap=350) 99.4 % 96.0-97.0 HCO3 ARTERIAL (BEAKER) (test yxms=260) 25 mmol/L 21-29 BASE EXCESS ARTERIAL (BEAKER) (test yrsb=242) -1.2 mmol/L -2.0-3.0 PATIENT TEMPERATURE (BEAKER) (test sjxa=2031) 32.2 C FIO2 (BEAKER) (test qvdu=0603) 60.0 % SODIUM NA-STAT [id number] 12:39:00 Test Item Value Reference Range Comments SODIUM (BEAKER) (test ynrw=789) 134 meq/L 135-148 GLUCOSE-STAT [id number] 12:39:00 Test Item Value Reference Range Comments GLUCOSE RANDOM (BEAKER) (test hfbe=756) 166 mg/dL 70-110 HGB/HCT (H&H) - STAT [id number] 12:39:00 Test Item Value Reference Range Comments HEMOGLOBIN (BEAKER) (test kpay=175) 9.9 g/dL 13.0-16.8 HEMATOCRIT (BEAKER) (test kcsm=957) 29.0 % 40.0-50.0 POTASSIUM-STAT [id number] 12:38:00 Test Item Value Reference Range Comments POTASSIUM (BEAKER) (test udqn=846) 4.4 meq/L 3.6-5.5 SODIUM NA-STAT [id number] 11:22:00 Test Item Value Reference Range Comments SODIUM (BEAKER) (test mgqq=718) 140 meq/L 135-148 POTASSIUM-STAT [id number] 11:22:00 Test Item Value Reference Range Comments POTASSIUM (BEAKER) (test asdw=258) 4.0 meq/L 3.6-5.5 HGB/HCT (H&H) - STAT [id number] 11:22:00 Test Item Value Reference Range Comments HEMOGLOBIN (BEAKER) (test kuso=738) 14.5 g/dL 13.0-16.8 HEMATOCRIT (BEAKER) (test jcgq=468) 43.0 % 40.0-50.0 BLOOD GAS, [id number] 11:22:00 Test Item Value Reference Range Comments PH ARTERIAL (BEAKER) (test ivgd=391) 7.38 7.35-7.45 PCO2 ARTERIAL (BEAKER) (test flht=458) 49 mmHg 35-45 PO2 ARTERIAL (BEAKER) (test qjjf=061) 295 mmHg 80-90 O2 SATURATION ARTERIAL (BEAKER) (test qaqv=699) 99.7 % 96.0-97.0 HCO3 ARTERIAL (BEAKER) (test spiu=860) 28 mmol/L 21-29 BASE EXCESS ARTERIAL (BEAKER) (test dgeh=722) 1.7 mmol/L -2.0-3.0 PATIENT TEMPERATURE (BEAKER) (test wikl=6508) 35.7 C FIO2 (BEAKER) (test hhun=9710) 100.0 % GLUCOSE-STAT [id number] 11:22:00 Test Item Value Reference Range Comments GLUCOSE RANDOM (BEAKER) (test bpgh=993) 112 mg/dL 70-110 PLATELET AGGREGATION: FUNCTION [id number] 09:52:00 Test Item Value Reference Range Comments WEAK ADP RESULT(BEAKER) (test 68 % 60-91 yspe=5308) PLATELET FUNCTION SCREEN 60-100% indicates normal INTERP (BEAKER) (test platelet function xmuo=1535) [id number] (BEAKER) Batsheva Llamas MD (electronic (test fzvv=9462) signature) PLATELET COUNT AGG (BEAKER) 176 K/CU MM 150-450 (test pdne=7060) RAD, CHEST, 1 VIEW, NON [id number] 08:51:00Reason for exam:->preop for CV surgeryFINAL REPORT INDICATION: preop for CV surgery COMPARISON: None. TECHNIQUE: Chest radiograph, single view, portable technique. FINDINGS / IMPRESSION: There is suggestion of mild pulmonary venous congestion. No interstitial or alveolar edema. Mild tortuosity of the thoracic aorta without heart shadow enlargement. No pneumothorax or pleural effusion demonstrated. No evidence of infection. Osseous structures unremarkable. Signed : Cesario Parmareport Verified Date/Time: 11/29/2017 08:51:39 Reading Location: [facility] Women Electronically signed by: CESARIO PARMAR M.D.on 11/29/2017 08:51 AMPOCT-GLUCOSE [id number] 07:42:00 Test Item Value Reference Range Comments POC-GLUCOSE METER (BEAKER) 105 mg/dL 70-110 TESTED AT [facility] [address] (test ajkz=7658) [facility] [address] COMPREHENSIVE METABOLIC [id number] 07:03:00 Test Item Value Reference Range Comments TOTAL PROTEIN (BEAKER) 7.9 gm/dL 6.0-8.3 (test jdai=714) ALBUMIN (BEAKER) (test 4.0 g/dL 3.5-5.0 schp=2142) ALKALINE PHOSPHATASE 71 U/L 40-150 (BEAKER) (test mfao=687) BILIRUBIN TOTAL (BEAKER) 0.6 mg/dL 0.2-1.2 (test psel=396) SODIUM (BEAKER) (test 140 meq/L 136-145 cqyy=072) POTASSIUM (BEAKER) (test 4.0 meq/L 3.5-5.1 dfws=709) CHLORIDE (BEAKER) (test 103 meq/L 98-107 ixzz=541) CO2 (BEAKER) (test 26 meq/L 22-29 bbkr=355) BLOOD UREA NITROGEN 14 mg/dL 7-21 (BEAKER) (test vkyv=076) CREATININE (BEAKER) (test 0.92 mg/dL 0.57-1.25 nujb=512) GLUCOSE RANDOM (BEAKER) 112 mg/dL 70-105 (test zhhb=045) CALCIUM (BEAKER) (test 9.1 mg/dL 8.4-10.2 hpyd=114) AST (SGOT) (BEAKER) (test 19 U/L 5-34 nxew=533) ALT (SGPT) (BEAKER) (test 26 U/L 6-55 mtck=952) EGFR (BEAKER) (test mL/min/1.73 sq m INSUFFICIENT CLINICAL DATA mjvj=9724) TO CALCULATE ESTIMATED GFR. BASIC METABOLIC [id number] 07:03:00 Test Item Value Reference Range Comments SODIUM (BEAKER) (test 140 meq/L 136-145 wzss=125) POTASSIUM (BEAKER) (test 4.0 meq/L 3.5-5.1 sglg=125) CHLORIDE (BEAKER) (test 103 meq/L 98-107 fchw=740) CO2 (BEAKER) (test 26 meq/L 22-29 tirp=520) BLOOD UREA NITROGEN 14 mg/dL 7-21 (BEAKER) (test ilpd=047) CREATININE (BEAKER) (test 0.92 mg/dL 0.57-1.25 tzzr=244) GLUCOSE RANDOM (BEAKER) 112 mg/dL 70-105 (test xxxg=129) CALCIUM (BEAKER) (test 9.1 mg/dL 8.4-10.2 sloh=463) EGFR (BEAKER) (test mL/min/1.73 sq m INSUFFICIENT CLINICAL DATA moyn=0516) TO CALCULATE ESTIMATED GFR. [id number] 06:54:00 Test Item Value Reference Range Comments MAGNESIUM (BEAKER) (test ipfp=819) 1.9 mg/dL 1.6-2.6 PROTHROMBIN TIME/[id number] 06:46:00 Test Item Value Reference Range Comments PROTIME (BEAKER) (test wqmq=514) 13.4 seconds 11.7-14.7 INR (BEAKER) (test olcs=621) 1.0 <=5.9 RECOMMENDED COUMADIN/WARFARIN INR THERAPY RANGESSTANDARD DOSE: 2.0 - 3.0 Includes: PROPHYLAXIS forvenous thrombosis, systemic embolization; TREATMENT for venous thrombosis and/or pulmonary embolus.HIGH RISK: Target INR is 2.5-3.5 for patients with mechanical heart valves.CBC W/PLT COUNT & AUTO [id number] 06:35:00 Test Item Value Reference Range Comments WHITE BLOOD CELL COUNT (BEAKER) (test qxbv=706) 6.8 K/ L 3.5-10.5 RED BLOOD CELL COUNT (BEAKER) (test odot=161) 5.32 M/ L 4.63-6.08 HEMOGLOBIN (BEAKER) (test sfmm=342) 14.6 GM/DL 13.7-17.5 HEMATOCRIT (BEAKER) (test nqrz=256) 47.0 % 40.1-51.0 MEAN CORPUSCULAR VOLUME (BEAKER) (test fpws=669) 88.3 fL 79.0-92.2 MEAN CORPUSCULAR HEMOGLOBIN (BEAKER) (test 27.4 pg 25.7-32.2 qyuf=765) MEAN CORPUSCULAR HEMOGLOBIN CONC (BEAKER) (test 31.1 GM/DL 32.3-36.5 ecfx=531) RED CELL DISTRIBUTION WIDTH (BEAKER) (test 13.8 % 11.6-14.4 vqkk=980) PLATELET COUNT (BEAKER) (test hfyn=370) 177 K/CU MM 150-450 MEAN PLATELET VOLUME (BEAKER) (test cxkj=436) 11.2 fL 9.4-12.4 NUCLEATED RED BLOOD CELLS (BEAKER) (test 0 /100 WBC 0-0 dzut=077) NEUTROPHILS RELATIVE PERCENT (BEAKER) (test 57 % ccca=812) LYMPHOCYTES RELATIVE PERCENT (BEAKER) (test 32 % mkpc=305) MONOCYTES RELATIVE PERCENT (BEAKER) (test 7 % gjid=208) EOSINOPHILS RELATIVE PERCENT (BEAKER) (test 4 % itij=510) BASOPHILS RELATIVE PERCENT (BEAKER) (test 0 % drsd=466) NEUTROPHILS ABSOLUTE COUNT (BEAKER) (test 3.84 K/ L 1.78-5.38 wapf=160) LYMPHOCYTES ABSOLUTE COUNT (BEAKER) (test 2.19 K/ L 1.32-3.57 tcbe=031) MONOCYTES ABSOLUTE COUNT (BEAKER) (test 0.44 K/ L 0.30-0.82 feoe=693) EOSINOPHILS ABSOLUTE COUNT (BEAKER) (test 0.24 K/ L 0.04-0.54 gybl=845) BASOPHILS ABSOLUTE COUNT (BEAKER) (test 0.02 K/ L 0.01-0.08 tuwe=920) IMMATURE GRANULOCYTES-RELATIVE PERCENT (BEAKER) 0 % 0-1 (test epue=8907) POCT-GLUCOSE [id number] 21:53:00 Test Item Value Reference Range Comments POC-GLUCOSE METER (BEAKER) 131 mg/dL 70-110 TESTED AT [address] (test qxya=9264) [place] [address] HEMOGLOBIN [id number] 20:50:00 Test Item Value Reference Range Comments HEMOGLOBIN A1C (BEAKER) (test rnbj=264) 6.6 % 4.3-6.1 POCT-GLUCOSE [id number] 19:15:00 Test Item Value Reference Range Comments POC-GLUCOSE METER (BEAKER) 134 mg/dL 70-110 TESTED AT [address] (test cpsy=0534) [place] [address] [id number] 18:35:00 Test Item Value Reference Range Comments PARTIAL THROMBOPLASTIN TIME (BEAKER) (test 32.4 seconds 22.5-36.0 irva=387) [id number] 18:34:00 Test Item Value Reference Range Comments FIBRINOGEN LEVEL (BEAKER) (test nnml=014) 372 mg/dl 225-434 TSH/FREE T4 IF [id number] 16:25:00 Test Item Value Reference Range Comments THYROID STIMULATING HORMONE (BEAKER) (test 2.53 uIU/mL 0.35-4.94 gjlj=449) BASIC METABOLIC [id number] 16:10:00 Test Item Value Reference Range Comments SODIUM (BEAKER) (test 139 meq/L 136-145 egxk=753) POTASSIUM (BEAKER) (test 4.2 meq/L 3.5-5.1 gswc=495) CHLORIDE (BEAKER) (test 106 meq/L 98-107 bnnb=182) CO2 (BEAKER) (test 25 meq/L 22-29 kdhu=622) BLOOD UREA NITROGEN 15 mg/dL 7-21 (BEAKER) (test amob=250) CREATININE (BEAKER) (test 0.90 mg/dL 0.57-1.25 hsep=125) GLUCOSE RANDOM (BEAKER) 124 mg/dL 70-105 (test uawl=009) CALCIUM (BEAKER) (test 8.8 mg/dL 8.4-10.2 yxzs=097) EGFR (BEAKER) (test mL/min/1.73 sq m INSUFFICIENT CLINICAL DATA wovc=2513) TO CALCULATE ESTIMATED GFR. [id number] 16:09:00 Test Item Value Reference Range Comments PHOSPHORUS (BEAKER) (test kewe=475) 3.0 mg/dL 2.3-4.7 [id number] 16:09:00 Test Item Value Reference Range Comments MAGNESIUM (BEAKER) (test zjhq=799) 2.0 mg/dL 1.6-2.6 LIPID [id number] 16:09:00 Test Item Value Reference Range Comments TRIGLYCERIDES (BEAKER) (test hqre=769) 263 mg/dL CHOLESTEROL (BEAKER) (test ipbs=159) 143 mg/dL HDL CHOLESTEROL (BEAKER) (test fper=212) 32 mg/dL LDL CHOLESTEROL CALCULATED (BEAKER) (test 58 mg/dL vzwo=738) Triglyceride Reference Range: Low Risk <150 Borderline 150- 199 High Risk 200-499 Very High Risk >=500Cholesterol Reference Range: Low Risk <200 Borderline 200-239 High Risk > 240HDL Cholesterol Reference Range: Low Risk >=60 High Risk <40LDL Cholesterol Reference Range: Optimal <100 Near Optimal 100-129 Borderline 130-159 High 160-189 Very High >=190HEPATIC FUNCTION [id number] 16:09:00 Test Item Value Reference Range Comments TOTAL PROTEIN (BEAKER) (test ipxb=202) 7.5 gm/dL 6.0-8.3 ALBUMIN (BEAKER) (test wcdd=2494) 3.8 g/dL 3.5-5.0 BILIRUBIN TOTAL (BEAKER) (test zezk=640) 0.4 mg/dL 0.2-1.2 BILIRUBIN DIRECT (BEAKER) (test vibb=284) 0.2 mg/dL 0.1-0.5 ALKALINE PHOSPHATASE (BEAKER) (test vvjz=958) 72 U/L 40-150 AST (SGOT) (BEAKER) (test zjmq=750) 21 U/L 5-34 ALT (SGPT) (BEAKER) (test oixh=976) 22 U/L 6-55 PT/[id number] 16:04:00 Test Item Value Reference Range Comments PROTIME (BEAKER) (test jxkx=470) 14.5 seconds 11.7-14.7 INR (BEAKER) (test djij=590) 1.1 <=5.9 PARTIAL THROMBOPLASTIN TIME (BEAKER) (test 29.6 seconds 22.5-36.0 oazr=197) RECOMMENDED COUMADIN/WARFARIN INR THERAPY RANGESSTANDARD DOSE: 2.0 - 3.0 Includes: PROPHYLAXIS forvenous thrombosis, systemic embolization; TREATMENT for venous thrombosis and/or pulmonary embolus.HIGH RISK: Target INR is 2.5-3.5 for patients with mechanical heart valves.
[2019-01-17 17:01] LABS: Protime INR 1.01
--- NOTE | 2019-01-17 17:19 | RAD REPORT ---
EXAM DESCRIPTION: CT - Abdomen Pelvis Wo Contrast - 01/17/2019 4:59 pm CLINICAL HISTORY: Abdominal pain COMPARISON: CT abdomen 2016 CT chest January 18, 2019 TECHNIQUE: Computed axial tomography of the abdomen and pelvis was obtained. IV and oral contrast we re not requested. All CT scans are performed using dose optimization technique as appropriate and may include automated exposure control or mA/KV adjustment according to patient size. FINDINGS: The evaluation of solid organs, vessels and bowel is limited secondary to the lack of con trast administration. Air is present within the biliary tree. Air is present within the gallbladder. The gallbladder is mil dly distended. There is no evidence of diverticulitis. 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 Emph ysematous cholecystitis can also have this appearance but is considered less likely. This should be c orrelated clinically and with appropriate lab values .
--- NOTE | 2019-01-17 17:19 | EDPHYS ---
Physician Documentation [facility] Name: Armond Beltrán Age: 63 yrs Sex: Male : 1955 Arrival Date: 01/17/2019 Time: 14:29 Bed 28 Private MD: James Rg V ED Physician Seven Thakur HPI: 01/17 16:47 This 63 yrs old Male presents to ER via Ambulatory with complaints of Abnormal snw Lab Results. 16:47 The patient has shortness of breath at rest, with light activity, generally in the snw mornings, fatigue/SOB with simple activities such as walking to the bathroom, getting up to eat breakfast.. Onset: The symptoms/episode began/occurred 1 week(s) ago, "three of these attacks". Duration: The symptoms are intermittent. The patient's shortness of breath has no apparent modifying factors. Associated signs and symptoms: Pertinent positives: chronic back pain. Severity of symptoms: At their worst the symptoms were moderate. It is unknown whether or not the patient has had similar symptoms in the past. The patient has been recently seen by a physician: the patient's primary care provider, Dr. Rg. Historical: - Allergies: 14:54 NKA; aa5 - PMHx: 14:54 Diabetes - NIDDM; Hypertension; Myocardial infarction; aa5 - PSHx: 14:54 Heart stents; BACK Sx; LEFT LEG; Quadriple heart bypass; aa5 - Immunization history:: Flu vaccine is not up to date. - Social history:: Smoking status: Patient/guardian denies using tobacco. - Ebola Screening: : No symptoms or risks identified at this time. ROS: 16:45 Eyes: Negative for injury, pain, redness, and discharge, ENT: Negative for injury, snw pain, and discharge, Neck: Negative for injury, pain, and swelling, Cardiovascular: Negative for chest pain, palpitations, and edema. 16:45 Abdomen/GI: Negative for abdominal pain, nausea, vomiting, diarrhea, and constipation. 16:45 Cardiovascular: Negative for chest pain, palpitations, and edema, : Negative for injury, bleeding, discharge, and swelling, MS/Extremity: Negative for injury and deformity, Skin: Negative for injury, rash, and discoloration, Neuro: Negative for headache, weakness, numbness, tingling, and seizure. 16:45 Constitutional: Positive for body aches, fatigue, malaise. 16:45 Respiratory: Positive for dyspnea on exertion, shortness of breath, at rest. 16:45 Back: Positive for pain at rest, pain with movement, of the low back area and mid back area. Exam: 16:45 Constitutional: This is a well developed, obese patient who is awake, alert, and in no snw acute distress. Head/Face: Normocephalic, atraumatic. Eyes: Pupils equal round and reactive to light, extra-ocular motions intact. Lids and lashes normal. Conjunctiva and sclera are non-icteric and not injected. Cornea within normal limits. Periorbital areas with no swelling, redness, or edema. ENT: Nares patent. No nasal discharge, no septal abnormalities noted. Tympanic membranes are normal and external auditory canals are clear. Oropharynx with no redness, swelling, or masses, exudates, or evidence of obstruction, uvula midline. Mucous membranes moist. Neck: Trachea midline, no thyromegaly or masses palpated, and no cervical lymphadenopathy. Supple, full range of motion without nuchal rigidity, or vertebral point tenderness. No Meningismus. Chest/axilla: Normal chest wall appearance and motion. Nontender with no deformity. No lesions are appreciated. Respiratory: Lungs have equal breath sounds bilaterally, clear to auscultation and percussion. No rales, rhonchi or wheezes noted. No increased work of breathing, no retractions or nasal flaring. Abdomen/GI: Soft, non-tender, with normal bowel sounds. No distension or tympany. No guarding or rebound. No evidence of tenderness throughout. Back: No spinal tenderness. No costovertebral tenderness. Full range of motion. Skin: Warm, dry with normal turgor. Normal color with no rashes, no lesions, and no evidence of cellulitis. MS/ Extremity: Pulses equal, no cyanosis. Neurovascular intact. Full, normal range of motion. Neuro: Awake and alert, GCS 15, oriented to person, place, time, and situation. Cranial nerves II-XII grossly intact. Motor strength 5/5 in all extremities. Sensory grossly intact. Cerebellar exam normal. Normal gait. 16:45 Cardiovascular: Rate: bradycardic, Rhythm: regular, Pulses: no pulse deficits are appreciated. 18:00 ECG was reviewed by the Attending Physician. snw Vital Signs: 14:54 BP 142 / 92; Pulse 58; Resp 16 S; Temp 97.2(TE); Pulse Ox 97% on R/A; Weight 142.88 kg aa5 (R); Height 6 ft. 1 in. (185.42 cm) (R); Pain 7/10; 16:00 BP 156 / 90 LA; Pulse 56; Resp 16 S; Pulse Ox 97% on R/A; rv 16:30 BP 152 / 86 LA; Pulse 53; Resp 15 S; Pulse Ox 97% on R/A; rv 17:30 BP 157 / 87 RA; Pulse 52; Resp 15 S; Pulse Ox 99% on R/A; rv 18:30 BP 168 / 88 RA; Pulse 56; Resp 16 S; Pulse Ox 96% on R/A; rv 19:30 BP 138 / 54 RA; Pulse 56; Resp 17 S; Pulse Ox 97% on R/A; rv 14:54 Body Mass Index 41.56 (142.88 kg, 185.42 cm) aa5 MDM: 15:08 Patient medically screened. snw 17:15 Data reviewed: vital signs, nurses notes. Data interpreted: Pulse oximetry: on room air snw is 97 %. Interpretation: normal. Counseling: I had a detailed discussion with the patient and/or guardian regarding: the historical points, exam findings, and any diagnostic results supporting the discharge/admit diagnosis, the presence of at least one elevated blood pressure reading (>120/80) during this emergency department visit, lab results, radiology results, the need for further work-up and treatment in the hospital. Physician consultation: James Rg MD was called at 17:16, was contacted at 17:16, regarding admission, to the telemetry unit. 17:27 ED course: CT abdomen requested per Radiologist again show pneumobilia, pt without RUQ snw pain, Leukocytosis, vomiting or other indicators for infectious process. Will place consult for Dr. Howard.. 17:46 ED course: Dr. Rg to ED, hold consult to Dr. Pruitt and Dr. Parham. Pt has recently snw refused cholecystectomy. Dr. Rg ordered Cipro and Flagyl to begin and he will re-evaluate pt tomorrow.. 04/03 14:58 Order name: Basic Metabolic Panel; Complete Time: 16:34 snw 01/17 14:58 Order name: CBC with Diff; Complete Time: 16:27 snw 01/17 14:58 Order name: LFT's; Complete Time: 16:34 snw 01/17 14:58 Order name: Magnesium; Complete Time: 16:34 snw 01/17 14:58 Order name: NT PRO-BNP; Complete Time: 16:34 snw 01/17 14:58 Order name: PT-INR; Complete Time: 17:42 snw 01/17 14:58 Order name: Troponin (emerg Dept Use Only); Complete Time: 16:34 snw 01/17 14:58 Order name: EKG; Complete Time: 14:59 snw 01/17 14:58 Order name: Cardiac monitoring; Complete Time: 16:20 snw 01/17 14:58 Order name: CT Chest For PE Angio; Complete Time: 16:16 snw 01/17 16:30 Order name: CT Abd/Pelvis - Without Cont; Complete Time: 17:22 snw 01/17 17:43 Order name: US Abdomen Limited snw 01/17 18:27 Order name: US; Complete Time: 18:29 EDMS 01/17 14:58 Order name: EKG - Nurse/Tech; Complete Time: 16:26 snw 01/17 14:58 Order name: IV Saline Lock; Complete Time: 16:20 snw 01/17 14:58 Order name: Labs collected and sent; Complete Time: 16:20 snw 01/17 14:58 Order name: O2 Per Protocol; Complete Time: 16:20 snw 01/17 14:58 Order name: O2 Sat Monitoring; Complete Time: 16:20 snw EC:00 Rate is 54 beats/min. Rhythm is regular. No Q waves. T waves are Inverted in leads II, snw III, aVF, V4, V5, V6. Clinical impression: NSR w/ Non-specific ST/T Changes and Sinus bradycardia. Changes noted from previous ECG on August 15, 2018. Administered Medications: 16:37 Drug: [place] 10 mg-325 mg 1 tabs Route: PO; rv 17:28 Follow up: Response: Pain is decreased rv Disposition: 01/18 07:01 Co-signature as Attending Physician, Seven Thakur MD. rn Disposition: 01/17/19 17:18 Hospitalization ordered by James Rg for Inpatient Admission. Preliminary diagnosis are Malaise and fatigue, Dyspnea, Abnormal electrocardiogram [ECG] [EKG] - inferolateral ischemic changes new from 08/15/18. - Bed requested for Telemetry/MedSurg (Inpatient). - Status is Inpatient Admission. rv - Condition is Stable. - Problem is new. - Symptoms are unchanged. UTI on Admission? No Signatures: Dispatcher [employer] EDMS Evelyn Hendrickson bd Radha Mendoza, E LEARNING COORDINATOR-C E LEARNING COORDINATOR-Csnw Seven Thakur MD MD rn Alejo, Bridget, RN RN aa5 Jn Gongora, RN RN rv Corrections: (The following items were deleted from the chart) 01/17 17:52 17:18 Hospitalization Ordered by James Rg MD for Inpatient Admission. Preliminary bd diagnosis is Malaise and fatigue; Dyspnea; Abnormal electrocardiogram [ECG] [EKG] - inferolateral ischemic changes new from 08/15/18. Bed requested for Telemetry/MedSurg (Inpatient). Status is Inpatient Admission. Condition is Stable. Problem is new. Symptoms are unchanged. UTI on Admission? No. snw 19:57 17:52 01/17/2019 17:18 Hospitalization Ordered by James Rg MD for Inpatient rv Admission. Preliminary diagnosis is Malaise and fatigue; Dyspnea; Abnormal electrocardiogram [ECG] [EKG] - inferolateral ischemic changes new from 08/15/18. Bed requested for Telemetry/MedSurg (Inpatient). Status is Inpatient Admission. Condition is Stable. Problem is new. Symptoms are unchanged. UTI on Admission? No. bd
--- NOTE | 2019-01-17 17:19 | ER ---
Nurse's Notes [facility] Name: Armond Beltrán Age: 63 yrs Sex: Male : 1955 Arrival Date: 01/17/2019 Time: 14:29 Bed 28 Private MD: James Rg V Diagnosis: Malaise and fatigue;Dyspnea;Abnormal electrocardiogram [ECG] [EKG]-inferolateral ischemic changes new from 08/15/18 Presentation: 01/17 14:48 Presenting complaint: Patient states: Dr. Rg sent me over because my blood work was aa5 showing something. D-Dimer 929 and sent here to r/o PE. Pt states "I keep having heavy breathing when I am sleeping". Pt also reports LLQ pain. 14:51 Transition of care: patient was not received from another setting of care. Onset of aa5 symptoms was January 17, 2019. Risk Assessment: Do you want to hurt yourself or someone else? Patient reports no desire to harm self or others. Initial Sepsis Screen: Does the patient meet any 2 criteria? No. Patient's initial sepsis screen is negative. Does the patient have a suspected source of infection? No. Patient's initial sepsis screen is negative. Care prior to arrival: None. 14:51 Method Of Arrival: Ambulatory aa5 14:51 Acuity: KEVIN 2 aa5 Historical: - Allergies: 14:54 NKA; aa5 - PMHx: 14:54 Diabetes - NIDDM; Hypertension; Myocardial infarction; aa5 - PSHx: 14:54 Heart stents; BACK Sx; LEFT LEG; Quadriple heart bypass; aa5 - Immunization history:: Flu vaccine is not up to date. - Social history:: Smoking status: Patient/guardian denies using tobacco. - Ebola Screening: : No symptoms or risks identified at this time. Screenin:21 Abuse screen: Denies threats or abuse. Denies injuries from another. Nutritional rv screening: No deficits noted. Tuberculosis screening: No symptoms or risk factors identified. Fall Risk None identified. Assessment: 16:21 General: Appears in no apparent distress. comfortable, Behavior is calm, cooperative. rv Pain: Denies pain. Neuro: Level of Consciousness is awake, alert, obeys commands, Oriented to person, place, time, situation. Cardiovascular: Capillary refill < 3 seconds. Respiratory: Airway is patent. GI: No signs and/or symptoms were reported involving the gastrointestinal system. : No signs and/or symptoms were reported regarding the genitourinary system. EENT: No signs and/or symptoms were reported regarding the EENT system. Derm: Skin is intact. Musculoskeletal: No signs and/or symptoms reported regarding the musculoskeletal system. Vital Signs: 14:54 BP 142 / 92; Pulse 58; Resp 16 S; Temp 97.2(TE); Pulse Ox 97% on R/A; Weight 142.88 kg aa5 (R); Height 6 ft. 1 in. (185.42 cm) (R); Pain 7/10; 16:00 BP 156 / 90 LA; Pulse 56; Resp 16 S; Pulse Ox 97% on R/A; rv 16:30 BP 152 / 86 LA; Pulse 53; Resp 15 S; Pulse Ox 97% on R/A; rv 17:30 BP 157 / 87 RA; Pulse 52; Resp 15 S; Pulse Ox 99% on R/A; rv 18:30 BP 168 / 88 RA; Pulse 56; Resp 16 S; Pulse Ox 96% on R/A; rv 19:30 BP 138 / 54 RA; Pulse 56; Resp 17 S; Pulse Ox 97% on R/A; rv 14:54 Body Mass Index 41.56 (142.88 kg, 185.42 cm) aa5 ED Course: 14:29 Patient arrived in ED. rg4 14:29 James Rg MD is Private Physician. rg4 14:48 Arm band placed on. aa5 14:53 Triage completed. aa5 14:57 Rad[facility]endo[facility]C [facility]. snw 14:57 Seven Thakur MD is Attending Physician. snw 15:07 Radiology exam delayed due to lab results not completed at this time. (BUN/Creatinine). jg6 15:20 Radiology exam delayed due to lab results not completed at this time. (BUN/Creatinine) jg6 IV insertion attempt and/or patient not having appropriate IV at this time. 15:39 CT completed. Patient tolerated procedure well. Patient moved to CT via stretcher. sj Patient moved back from CT. 15:42 CT Chest For PE Angio In Process Unspecified. EDMS 16:11 EKG done, by classroom technology coach. reviewed by Radha LAZARO. sm3 16:22 Patient has correct armband on for positive identification. Bed in low position. Call rv light in reach. Side rails up X 1. Adult w/ patient. Pulse ox on. NIBP on. 16:30 No provider procedures requiring assistance completed. Inserted saline lock: 20 gauge rv in right upper arm, using aseptic technique. 16:59 CT completed. Patient tolerated procedure well. Patient moved back from CT. vm2 16:59 CT Abd/Pelvis - Without Cont In Process Unspecified. EDMS 17:16 James Rg MD is Hospitalizing Provider. snw 19:55 Patient admitted, IV remains in place. intact. rv Administered Medications: 16:37 Drug: [place] 10 mg-325 mg 1 tabs Route: PO; rv 17:28 Follow up: Response: Pain is decreased rv Outcome: 17:18 Decision to Hospitalize by Provider. snw 19:55 Admitted to Med/surg accompanied by nurse, via wheelchair, room 221, with chart, Report rv called to JAREK MAYEN 19:55 Condition: good 19:55 Instructed on the need for admit. 19:57 Patient left the ED. rv Signatures: Dispatcher [employer] EDMA Radha Mendoza FNP-C SHIPPING CLERK-Csnw Sonal Love Audri, RN RN aa5 Maile Echeverria Victoria 2 Leona Mendoza 3 Jn Gongora, RN RN rv Emelia Echeverriag6 Corrections: (The following items were deleted from the chart) 14:53 14:48 Presenting complaint: Patient states: Dr. Rg sent me over because my blood aa5 work was showing something. aa5 14:54 14:51 Acuity: KEVIN 3 aa5 aa5 14:56 14:48 Presenting complaint: Patient states: Dr. Rg sent me over because my blood aa5 work was showing something. D-Dimer 929 and sent here to r/o PE. Pt states "I keep having heavy breathing when I am sleeping" aa5 14:56 14:54 BP 142 / 92; Pulse 58bpm; Resp 16bpm; Spontaneous; Pulse Ox 97% RA; Temp 97.2F aa5 Temporal; 142.88 kg Reported; Height 6 ft. 1 in. Reported; BMI: 41.5; aa5
--- NOTE | 2019-01-17 18:27 | RAD REPORT ---
EXAM DESCRIPTION: US - Abdomen Exam Limited - 01/17/2019 6:17 pm CLINICAL HISTORY: Abdominal pain. COMPARISON: January 17, 2019 cat scan FINDINGS: The gallbladder wall is not thickened. Echogenic structures within the gallbladder repres ent air. A gallstone is not seen. The gallbladder is distended. The common bile duct measures 10 millimeters. IMPRESSION: Distended gallbladder containing air Dilated common bile
[2019-01-17] MEDS ORDERED: DIAZEPAM 5 MG TABLET PO PRN (20:04)
[2019-01-17] MEDS ORDERED: HYDROMORPHONE HCL 1 MG/ML INJ IV ONE (20:32)
[2019-01-17] MEDS ORDERED: metroNIDAZOLE 500 MG TABLET PO SCH (21:00)
[2019-01-17] MEDS ORDERED: CIPROFLOXACIN HCL 500 MG TAB PO SCH (21:00)
[2019-01-17] MEDS ORDERED: ATORVASTATIN 40 MG TAB PO SCH (21:00)
[2019-01-17] MEDS: ENOXAPARIN 100 MG/ML SYR SQ SCH (21:16)
[2019-01-17] MEDS: CIPROFLOXACIN 400mg IV 400 MG/200 ML BAG IV SCH (21:18)
[2019-01-17] MEDS: METOPROLOL XL 50 MG TAB PO SCH (21:19)
[2019-01-18 00:01] VITALS: BMI 41.5
[2019-01-18] MEDS: HYDROCODONE/APAP 5/325 MG TAB PO PRN ×2 (00:01→04:49)
[2019-01-18] MEDS: METOPROLOL XL 50 MG TAB PO SCH (05:55)
[2019-01-18] MEDS: METRONIDAZOLE 500mg IVPB 500 MG/100 ML BAG IV SCH ×3 (05:56→12:00)
[2019-01-18 06:31] LABS: Absolute Lymphocytes (CBC) 1.7 K/uL (0.7-4.9); Absolute Monocytes 0.4 K/uL (0.1-1.3); Absolute Neutrophil 2.7 K/uL (1.8-8.0); Basophils % 0.5 % (0-1.3); Eosinophils % 2.6 % (0-4.4); Hematocrit 44.9 % (39.6-49.0); Lymphocytes % 34.2 % (15.3-44.8); MPV 9.7 fL (7.6-11.3); Monocytes % 7.2 % (3.3-12.3); RBC Red Blood Cell Count 5.21 M/uL (4.33-5.43)
[2019-01-18 06:46] LABS: Potassium 3.9 mmol/L (3.5-5.1)
[2019-01-18 08:50] VITALS: BP 165/90; TEMP 96.9
[2019-01-18] MEDS: ENOXAPARIN 100 MG/ML SYR SQ SCH (08:58)
[2019-01-18] MEDS ORDERED: FUROSEMIDE 20 MG TABLET PO SCH (09:00)
[2019-01-18] MEDS ORDERED: TAMSULOSIN 0.4 MG SR CAP PO SCH (09:00)
[2019-01-18] MEDS ORDERED: AMIODARONE HCL 200 MG TAB PO SCH (09:00)
[2019-01-18] MEDS ORDERED: ASPIRIN EC 81 MG TAB PO SCH (09:00)
[2019-01-18] MEDS: CIPROFLOXACIN 400mg IV 400 MG/200 ML BAG IV SCH (09:06)
[2019-01-18] MEDS: HYDROMORPHONE HCL 1 MG/ML INJ IV PRN ×2 (09:06→13:50)
[2019-01-18 11:02] VITALS: O2SAT 93
--- NOTE | 2019-01-18 11:44 | ECHO ---
HEIGHT: 6 ft 1 in WEIGHT: 315 lb 0 oz DATE OF STUDY: 01/18/[address]: Warner Sauer MD 2-DIMENSIONAL: YES M.MODE: YES DOPPLER: YES COLOR FLOW: YES TDS: YES PORTABLE: NO DEFINITY: NO BUBBLE STUDY: NO DIAGNOSIS: EKG CHANGES, HISTORY OF CABG CARDIAC HISTORY: CATHERIZATION: YES SURGERY: YES PROSTHETIC VALVE: NO PACEMAKER: NO MEASUREMENTS (cm) DIASTOLIC (NORMALS) SYSTOLIC (NORMALS) IVSd 1.2 (0.6-1.2) LA Diam 4.4 (1.9-4.0) LVEF 59% LVIDd 5.7 (3.5-5.7) LVIDs 3.9 (2.0-3.5) %FS 32% LVPWd 1.2 (0.6-1.2) Ao Diam 3.0 (2.0-3.7) 2 DIMENSIONAL ASSESSMENT: RIGHT ATRIUM: NORMAL LEFT ATRIUM: DILATED RIGHT VENTRICLE: NORMAL LEFT VENTRICLE: LEFT VENTRICULAR HYPERTROPHY TRICUSPID VALVE: NORMAL MITRAL VALVE: NORMAL PULMONIC VALVE: NORMAL AORTIC VALVE: TRI-LEAFLET, MILD THICKENING PERICARDIAL EFFUSION: NONE AORTIC ROOT: NORMAL LEFT VENTRICULAR WALL MOTION: NORMAL DOPPLER/COLOR FLOW: MILD MITRAL REGURGITATION. COMMENTS: NORMAL LEFT VENTRICULAR EJECTION FRACTION. LEFT VENTRICULAR HYPERTROPHY. DILATED LEFT ATRIUM. AORTIC SCLEROSIS WITH NO AORTIC STENOSIS AND AORTIC REGURGITATION. TECHNOLOGIST: Renetta MARTINES
--- NOTE | 2019-01-18 12:50 | P.SSS ---
Patient History Date of Service: 01/18/19 Reason for admission: LOWER ABDOMEN PAIN LLQ. History of Present Illness: MR. SPENCE IS MORBIDLY OBESE GM WHO IS NOT WATCHING DIET COMES WITH LLQ ABDOMEN PAIN. I ORDERED D DIMER ALSO HE HAD SOME INDICATION OF DYSPNEA THAT CAME HIGH. I ASKED HIM TO COME TO ER. CT ANGIO WAS NEGATIVE. CT ABDOMEN DID NOT SHOW ANY MAJOR ISSUES. HE IS NARCOTIC DEPENDENT FROM MANY PAIN DOCTORS AND ASKS FOR IV PAIN MEDS. HE MAY BE IN SEVERE PAIN BUT IT IS HARD TO GAUGE MAINLY FOR HIS LOWER BACK. DR ESPINOSA CALLED AND SAID THE GB HAS AIR FROM PREVIOUS ERCP. HE HAS NO PAIN IN RUQ AT PRESENT. DR. MARTE SAID HE HAS NO CHEST PAIN. Allergies No Known Allergies Allergy (Verified 01/17/19 20:21) - Past Medical/Surgical History Has patient received pneumonia vaccine in the past: No Diabetic: Yes -: CAD -: NIDDM -: obstructive sleep apnea -: Chronic back pain -: Hyperlipedemia -: Heart cath/with stents x3 -: laminectomy -: coronary artery bypass graft - Family History Father History Unknown: Yes Mother History Unknown: Yes - Social History Smoking Status: Never smoker Alcohol use: No CD- Drugs: No Caffeine use: Yes Place of Residence: Home Review of Systems 10-point ROS is otherwise unremarkable Physical Examination - Vital Signs Temperature: 96.9 F Blood Pressure: 165/90 Pulse: 58 Respirations: 18 Pulse Ox (%): 97 - Physical Exam General: Mild distress (BACK PAIN.), Obese HEENT: Atraumatic, PERRLA, Mucous membr. moist/pink, EOMI, Sclerae nonicteric Neck: Supple, 2+ carotid pulse no bruit, No LAD, Without JVD or thyroid abnormality Respiratory: Clear to auscultation bilaterally, Normal air movement Cardiovascular: Regular rate/rhythm, Normal S1 S2 Gastrointestinal: Normal bowel sounds, No tenderness Musculoskeletal: No tenderness Integumentary: No rashes Neurological: Normal gait, Normal speech, Normal strength at 5/5 x4 extr, Normal tone, Normal affect Lymphatics: No axilla or inguinal lymphadenopathy - Studies Laboratory Data (last 24 hrs) 01/17/19 15:30: PT 11.9, INR 1.01 01/17/19 15:30: WBC 5.8, Hgb 14.8, Hct 46.3, Plt Count 154 04/03/19 15:30: Sodium 139, Potassium 4.1, BUN 17, Creatinine 1.07, Glucose 200 H, Magnesium 2.0, Total Bilirubin 0.4, AST 20, ALT 30, Alkaline Phosphatase 90 - Diagnosis (Problem(s)) (1) Acute diverticulitis Current Visit: Yes Status: Acute Plan: CLINICALLY. ORDER ORAL ABX FOR HOME. FU WITH GI MD IF PAIN LLQ CONTINUES HE MAY HAVE PAIN RADIATING FROM HIS BACK. (2) Back pain Current Visit: No Status: Chronic Plan: HPI. Qualifiers: Back pain location: low back pain (3) Obesity Onset Date: 11/28/17 Current Visit: No Status: Chronic Plan: NOT FOLLOWING DIET. Qualifiers: Obesity type: due to excess calories - Disposition Disposition: ROUTINE DISCHARGE
--- NOTE | 2019-01-18 12:55 | CON ---
History Of Present Illness: Mr. Beltrán, I am asked to see him because his EKG has changed. He has a history of coronary heart disease with stents in the mid LAD and obtuse marginal. He has had a car diac cath fairly recently that did not show any significant abnormalities. He has had a nuclear stre ss test showing things are fine. He did not have any chest pain. He came in with lower back pain an d abdominal pain. He has pneumobilia and a lot of problems with his back. He has had 4 different [facility] spine surgeries in the past. The pain he has is lower abdominal, lower back, mid back and it ra diates to his legs, any kind of motion of his legs makes it worse. Physical Examination: General: He is very obese, alert, oriented, pleasant, not in distress. Abdomen: Soft. Extremities: Distal pulses diminished but palpable. Mild edema. He had coronary bypass surgery, fo llowing all of his stents in the last time, was in November 2017. Since that time, he has not had an y chest pain. Laboratory Exam: Shows normal troponins. His electrocardiogram shows wide QRS at the right bundle. There are T-wave changes in the anterolateral leads that are different from before. They were never normal, but they are abnormal in a different way, so I am going to recommend that we do an echocardi ogram. I do not think we need to do a heart cath or a stress test. This really does not seem to be unstable angina. NATASHA/MARIA E Voice ID: [id number] Report ID: [id number]
--- NOTE | 2019-01-18 17:55 | CON ---
Date of Consultation: 01/18/2019 Reason: Abnormal findings on ultrasound of the abdomen. History Of Present Illness: The patient is a 63-year-old gentleman with multiple medical problems, w ho presented with left lower quadrant abdominal pain, also had dyspnea, and he had a D-dimer ordered by Dr. Rg as an outpatient, which was very high. He went to the ER for further workup. He had a CT angio of the chest, abdomen, and pelvis. Did not show any issues with PE. He did have air in his gallbladder and distended gallbladder and dilated common bile duct, and therefore I was consulted. He has no pain in the epigastrium or the right upper quadrant. No postprandial pain. No nausea or v omiting. No diarrhea or constipation. No blood in his stool. No dysuria, hematuria. No chest pain per se either. The patient did have an ERCP done about 2-1/2 years ago when a common bile duct ston e was removed, and he had a papillotomy done, and therefore that explains the air in the gallbladder as well as the dilated common bile duct. Review of Systems: Otherwise unremarkable. Past Medical History: Significant for coronary artery disease, noninsulin diabetes, obstructive slee p apnea, morbid obesity, chronic back pain, hyperlipidemia. Past Surgical History: Significant for CABG, stents in the heart, laminectomy. Allergies: NONE. Social History: The patient does not smoke and does not drink alcohol. Family History: Noncontributory. Physical Examination: Vital Signs: Stable. He is afebrile. General: He is awake, alert, and oriented x3. Head and Neck: Cranial nerves 2 through 12 are grossly within normal limits. No neck masses. No JV D. Throat clear. Neck is supple. Chest: Clear. Heart: S1, S2. Abdomen: Soft, nondistended, nontender. Positive bowel sounds. Extremities: Neurovascularly intact. Neurologic: Nonfocal. Diagnostic Data: His white count was normal. There is no left shift. INR is 1.01. Chemistry revie wed. The glucose is slightly elevated, otherwise his findings are unremarkable. His troponin [address] of the abdomen and pelvis as well as the abdominal ultrasound reviewed, and showed distend ed gallbladder containing air and dilated common bile duct. CT shows pneumobilia and gallbladder air , doubt emphysematous cholecystitis. Assessment: A 63-year-old gentleman with multiple medical problems, with air in his gallbladder. Pl ease note, he has been offered to have his gallbladder removed in the past, he has refused. He does not really want his gallbladder removed at this time as well, but he does not have any stones in his gallbladder, and I do not think it is an urgency that he have his gallbladder removed. Advised him t o eat a healthy diet and avoid fried foods, fatty foods, spicy foods, and should the gallbladder irma me an issue in the future, he can follow up with me as an outpatient, and we can address the issue at that time. Currently, he was admitted to rule out for PE, which has been done, so he can be dischar ged home, and the plan of care was discussed in detail with Dr. Rg. GILMAR/MARIA E Voice ID: [id number] Report ID: [id number]
--- NOTE | 2019-01-23 11:15 | EKG ---
Test Date: 2019-01-17 Test Time: 15:15:11 [employer] Operator: AILYN MEASUREMENT RESULTS: Intervals: Rate: 54 ND: 170 QRSD: 132 QT: 522 QTc: 495 [place]: P: 34 ND: 170 QRS: 267 T: -83 INTERPRETIVE STATEMENTS: Sinus bradycardia Right bundle branch block T wave abnormality, consider inferolateral ischemia Abnormal ECG Compared to ECG 08/15/2018 09:10:39 T-wave abnormality now present Possible ischemia now present Sinus rhythm no longer present Myocardial infarct finding no longer present Electronically Signed On 01-17-19 16:57:46 CDT by Warner Sauer
== END 2019-01-18 15:00 | disposition home or self-care (01) ==
LOC: ER 14:27 → INTOOBSV 17:29 → ERHOLD 17:29 → 2ND 19:49
PROVIDERS: ADMIT Internal Medicine; ATTEND Internal Medicine
DX: K57.92 Diverticulitis of intestine, part unspecified, without perforation or abscess without bleeding (principal); M54.5 Low back pain; E66.01 Morbid (severe) obesity due to excess calories; I25.10 Atherosclerotic heart disease of native coronary artery without angina pectoris; E11.9 Type 2 diabetes mellitus without complications; G47.33 Obstructive sleep apnea (adult) (pediatric); E78.5 Hyperlipidemia, unspecified; R53.81 Other malaise; R53.83 Other fatigue; R06.00 Dyspnea, unspecified; R94.31 Abnormal electrocardiogram [ECG] [EKG]; I25.2 Old myocardial infarction; K82.8 Other specified diseases of gallbladder; F11.20 Opioid dependence, uncomplicated; Z76.5 Malingerer [conscious simulation]; Z95.1 Presence of aortocoronary bypass graft; Z95.818 Presence of other cardiac implants and grafts
CPT/HCPCS: 93005; 93306; 85025 ×2; 80048 ×2; 36415; 83735; 85610; 80076; 84484 ×3; 83880; 71275; 74176; 76705; 99285; Q9967; J1650 ×2; J1170 ×3; J0744 ×2; G0378 ×2

== ENCOUNTER 2019-09-02 16:03 | Inpatient (IN) | payer OTHER ==
--- OUTSIDE RECORDS SUMMARY | 2019-09-02 16:07 | XMS REPORT ---
:1955 [facility] Address [address] [place] [address] [address] [place] [address] Care Team Providers Name Role Phone ANGELDI [...] (BEAKER) (test 255 mg/dL 70-110 TESTED AT [address] dnpc=8051) [facility] [address] POCT-GLUCOSE [id number] 08:35:00 Test Item Value Reference Range Comments POC-GLUCOSE METER (BEAKER) 127 mg/dL 70-110 TESTED AT [address] (test hbno=8195) [facility] [address] POCT-GLUCOSE [id number] 00:25:00 Test Item Value Reference Range Comments POC-GLUCOSE METER (BEAKER) 177 mg/dL 70-110 TESTED AT [address] (test gyrd=0281) [facility] [address] HEMOGLOBIN [id number] 14:20:00 Test Item Value Reference Range Comments HEMOGLOBIN A1C (BEAKER) (test kszn=246) 6.9 % 4.3-6.1 BASIC METABOLIC [id number] 07:34:00 Test Item Value Reference Range Comments SODIUM (BEAKER) (test 139 meq/L 136-145 lokx=573) POTASSIUM (BEAKER) (test 3.9 meq/L 3.5-5.1 hvnk=196) CHLORIDE (BEAKER) (test 106 meq/L 98-107 dtun=145) CO2 (BEAKER) (test 23 meq/L 22-29 mmgf=818) BLOOD UREA NITROGEN 16 mg/dL 7-21 (BEAKER) (test ptxn=564) CREATININE (BEAKER) (test 0.77 mg/dL 0.57-1.25 kihu=226) GLUCOSE RANDOM (BEAKER) 126 mg/dL 70-105 (test hajx=599) CALCIUM (BEAKER) (test 8.4 mg/dL 8.4-10.2 bywq=176) EGFR (BEAKER) (test mL/min/1.73 sq m INSUFFICIENT CLINICAL DATA kuxd=9047) TO CALCULATE ESTIMATED GFR. CBC W/PLT COUNT & AUTO [id number] 06:38:00 Test Item Value Reference Range Comments WHITE BLOOD CELL COUNT (BEAKER) (test ohzs=986) 5.9 K/ L 3.5-10.5 RED BLOOD CELL COUNT (BEAKER) (test zmnc=246) 2.75 M/ L 4.63-6.08 HEMOGLOBIN (BEAKER) (test nczn=370) 7.6 GM/DL 13.7-17.5 HEMATOCRIT (BEAKER) (test jxmb=547) 25.2 % 40.1-51.0 MEAN CORPUSCULAR VOLUME (BEAKER) (test wxgn=514) 91.6 fL 79.0-92.2 MEAN CORPUSCULAR HEMOGLOBIN (BEAKER) (test 27.6 pg 25.7-32.2 uxjy=874) MEAN CORPUSCULAR HEMOGLOBIN CONC (BEAKER) (test 30.2 GM/DL 32.3-36.5 nvqz=197) RED CELL DISTRIBUTION WIDTH (BEAKER) (test 14.7 % 11.6-14.4 mchd=377) PLATELET COUNT (BEAKER) (test vaez=624) 209 K/CU MM 150-450 MEAN PLATELET VOLUME (BEAKER) (test ywpc=979) 11.2 fL 9.4-12.4 NUCLEATED RED BLOOD CELLS (BEAKER) (test 0 /100 WBC 0-0 tzvg=836) NEUTROPHILS RELATIVE PERCENT (BEAKER) (test 64 % uwxh=927) LYMPHOCYTES RELATIVE PERCENT (BEAKER) (test 25 % nhbw=384) MONOCYTES RELATIVE PERCENT (BEAKER) (test 6 % qtka=449) EOSINOPHILS RELATIVE PERCENT (BEAKER) (test 4 % tyxf=675) BASOPHILS RELATIVE PERCENT (BEAKER) (test 0 % umye=505) NEUTROPHILS ABSOLUTE COUNT (BEAKER) (test 3.76 K/ L 1.78-5.38 olon=531) LYMPHOCYTES ABSOLUTE COUNT (BEAKER) (test 1.49 K/ L 1.32-3.57 gzlt=513) MONOCYTES ABSOLUTE COUNT (BEAKER) (test 0.35 K/ L 0.30-0.82 orit=761) EOSINOPHILS ABSOLUTE COUNT (BEAKER) (test 0.21 K/ L 0.04-0.54 lhsz=382) BASOPHILS ABSOLUTE COUNT (BEAKER) (test 0.01 K/ L 0.01-0.08 ykdm=064) IMMATURE GRANULOCYTES-RELATIVE PERCENT (BEAKER) 1 % 0-1 (test ddhs=4836) POCT-GLUCOSE [id number] 21:40:00 Test Item Value Reference Range Comments POC-GLUCOSE METER (BEAKER) 171 mg/dL 70-110 TESTED AT [address] (test birf=5857) [place] [address] POCT-GLUCOSE [id number] 18:53:00 Test Item Value Reference Range Comments POC-GLUCOSE METER (BEAKER) 136 mg/dL 70-110 TESTED AT [address] (test qqps=1351) [place] [address] BASIC METABOLIC [id number] 05:58:00 Test Item Value Reference Range Comments SODIUM (BEAKER) (test 139 meq/L 136-145 gdsj=134) POTASSIUM (BEAKER) (test 4.3 meq/L 3.5-5.1 hglv=133) CHLORIDE (BEAKER) (test 106 meq/L 98-107 kbuk=226) CO2 (BEAKER) (test 25 meq/L 22-29 vxrq=505) BLOOD UREA NITROGEN 19 mg/dL 7-21 (BEAKER) (test dsjj=571) CREATININE (BEAKER) (test 0.74 mg/dL 0.57-1.25 pqxs=177) GLUCOSE RANDOM (BEAKER) 132 mg/dL 70-105 (test bmdq=001) CALCIUM (BEAKER) (test 8.3 mg/dL 8.4-10.2 fdza=092) EGFR (BEAKER) (test mL/min/1.73 sq m INSUFFICIENT CLINICAL DATA ldnx=7629) TO CALCULATE ESTIMATED GFR. [id number] 05:57:00 Test Item Value Reference Range Comments MAGNESIUM (BEAKER) (test trud=798) 1.9 mg/dL 1.6-2.6 CBC W/PLT COUNT & AUTO [id number] 05:11:00 Test Item Value Reference Range Comments WHITE BLOOD CELL COUNT (BEAKER) (test qbob=699) 7.4 K/ L 3.5-10.5 RED BLOOD CELL COUNT (BEAKER) (test frpx=582) 2.76 M/ L 4.63-6.08 HEMOGLOBIN (BEAKER) (test lzlf=170) 7.7 GM/DL 13.7-17.5 HEMATOCRIT (BEAKER) (test zefr=881) 24.4 % 40.1-51.0 MEAN CORPUSCULAR VOLUME (BEAKER) (test tqax=080) 88.4 fL 79.0-92.2 MEAN CORPUSCULAR HEMOGLOBIN (BEAKER) (test 27.9 pg 25.7-32.2 iawq=395) MEAN CORPUSCULAR HEMOGLOBIN CONC (BEAKER) (test 31.6 GM/DL 32.3-36.5 dttz=207) RED CELL DISTRIBUTION WIDTH (BEAKER) (test 14.3 % 11.6-14.4 qzhl=135) PLATELET COUNT (BEAKER) (test qxgm=186) 162 K/CU MM 150-450 MEAN PLATELET VOLUME (BEAKER) (test cmsr=938) 11.4 fL 9.4-12.4 NUCLEATED RED BLOOD CELLS (BEAKER) (test 0 /100 WBC 0-0 xlnq=552) NEUTROPHILS RELATIVE PERCENT (BEAKER) (test 68 % nqhv=922) LYMPHOCYTES RELATIVE PERCENT (BEAKER) (test 22 % efsh=644) MONOCYTES RELATIVE PERCENT (BEAKER) (test 7 % ourm=286) EOSINOPHILS RELATIVE PERCENT (BEAKER) (test 3 % qtld=206) BASOPHILS RELATIVE PERCENT (BEAKER) (test 0 % ykxo=879) NEUTROPHILS ABSOLUTE COUNT (BEAKER) (test 5.05 K/ L 1.78-5.38 prao=218) LYMPHOCYTES ABSOLUTE COUNT (BEAKER) (test 1.62 K/ L 1.32-3.57 oebs=201) MONOCYTES ABSOLUTE COUNT (BEAKER) (test 0.49 K/ L 0.30-0.82 bngr=027) EOSINOPHILS ABSOLUTE COUNT (BEAKER) (test 0.22 K/ L 0.04-0.54 grks=956) BASOPHILS ABSOLUTE COUNT (BEAKER) (test 0.01 K/ L 0.01-0.08 magz=403) IMMATURE GRANULOCYTES-RELATIVE PERCENT (BEAKER) 0 % 0-1 (test mfee=1822) POCT-GLUCOSE [id number] 21:45:00 Test Item Value Reference Range Comments POC-GLUCOSE METER (BEAKER) 177 mg/dL 70-110 TESTED AT [address] (test aqzi=8029) [facility] [address] POCT-GLUCOSE [id number] 18:49:00 Test Item Value Reference Range Comments POC-GLUCOSE METER (BEAKER) 216 mg/dL 70-110 TESTED AT [address] (test nqoq=1456) [facility] [address] POCT-GLUCOSE [id number] 09:56:00 Test Item Value Reference Range Comments POC-GLUCOSE METER (BEAKER) 202 mg/dL 70-110 TESTED AT [address] (test wdcf=1832) [facility] [address] [id number] 09:37:00 Test Item Value Reference Range Comments PROTIME (BEAKER) (test ghha=655) 14.5 seconds 11.7-14.7 INR (BEAKER) (test esmd=192) 1.1 <=5.9 PARTIAL THROMBOPLASTIN TIME (BEAKER) (test 32.4 seconds 22.5-36.0 wckk=751) RECOMMENDED COUMADIN/WARFARIN INR THERAPY RANGESSTANDARD DOSE: 2.0 - 3.0 Includes: PROPHYLAXIS forvenous thrombosis, systemic embolization; TREATMENT for venous thrombosis and/or pulmonary embolus.HIGH RISK: Target INR is 2.5-3.5 for patients with mechanical heart valves.BASIC METABOLIC [id number] 09:24: 00 Test Item Value Reference Range Comments SODIUM (BEAKER) (test 138 meq/L 136-145 wxaw=653) POTASSIUM (BEAKER) (test 3.7 meq/L 3.5-5.1 zkio=620) CHLORIDE (BEAKER) (test 103 meq/L 98-107 noit=353) CO2 (BEAKER) (test 27 meq/L 22-29 qvwl=931) BLOOD UREA NITROGEN 17 mg/dL 7-21 (BEAKER) (test yimn=527) CREATININE (BEAKER) (test 0.80 mg/dL 0.57-1.25 vaxx=904) GLUCOSE RANDOM (BEAKER) 162 mg/dL 70-105 (test qqjr=688) CALCIUM (BEAKER) (test 8.7 mg/dL 8.4-10.2 pnkp=819) EGFR (BEAKER) (test mL/min/1.73 sq m INSUFFICIENT CLINICAL DATA groa=6199) TO CALCULATE ESTIMATED GFR. [id number] 09:16:00 Test Item Value Reference Range Comments MAGNESIUM (BEAKER) (test zclj=023) 1.8 mg/dL 1.6-2.6 CBC W/PLT COUNT & AUTO [id number] 08:53:00 Test Item Value Reference Range Comments WHITE BLOOD CELL COUNT (BEAKER) (test anuo=661) 8.5 K/ L 3.5-10.5 RED BLOOD CELL COUNT (BEAKER) (test lage=918) 2.85 M/ L 4.63-6.08 HEMOGLOBIN (BEAKER) (test ejuv=602) 8.0 GM/DL 13.7-17.5 HEMATOCRIT (BEAKER) (test urcm=867) 25.2 % 40.1-51.0 MEAN CORPUSCULAR VOLUME (BEAKER) (test jnzp=691) 88.4 fL 79.0-92.2 MEAN CORPUSCULAR HEMOGLOBIN (BEAKER) (test 28.1 pg 25.7-32.2 rogd=215) MEAN CORPUSCULAR HEMOGLOBIN CONC (BEAKER) (test 31.7 GM/DL 32.3-36.5 hxqc=228) RED CELL DISTRIBUTION WIDTH (BEAKER) (test 14.1 % 11.6-14.4 iftw=449) PLATELET COUNT (BEAKER) (test ahdn=090) 140 K/CU MM 150-450 MEAN PLATELET VOLUME (BEAKER) (test ngkm=645) 11.5 fL 9.4-12.4 NUCLEATED RED BLOOD CELLS (BEAKER) (test 0 /100 WBC 0-0 jfle=831) NEUTROPHILS RELATIVE PERCENT (BEAKER) (test 67 % sjon=120) LYMPHOCYTES RELATIVE PERCENT (BEAKER) (test 24 % pmeq=261) MONOCYTES RELATIVE PERCENT (BEAKER) (test 7 % iqlo=913) EOSINOPHILS RELATIVE PERCENT (BEAKER) (test 2 % hmbz=309) BASOPHILS RELATIVE PERCENT (BEAKER) (test 0 % ggxe=391) NEUTROPHILS ABSOLUTE COUNT (BEAKER) (test 5.67 K/ L 1.78-5.38 pcxs=034) LYMPHOCYTES ABSOLUTE COUNT (BEAKER) (test 2.08 K/ L 1.32-3.57 bbep=810) MONOCYTES ABSOLUTE COUNT (BEAKER) (test 0.58 K/ L 0.30-0.82 zaau=283) EOSINOPHILS ABSOLUTE COUNT (BEAKER) (test 0.14 K/ L 0.04-0.54 iqxi=337) BASOPHILS ABSOLUTE COUNT (BEAKER) (test 0.01 K/ L 0.01-0.08 effq=193) IMMATURE GRANULOCYTES-RELATIVE PERCENT (BEAKER) 0 % 0-1 (test aisr=1722) POCT-GLUCOSE [id number] 21:32:00 Test Item Value Reference Range Comments POC-GLUCOSE METER (BEAKER) 200 mg/dL 70-110 TESTED AT [address] (test phqc=8222) [place] [address] POCT-GLUCOSE [id number] 17:42:00 Test Item Value Reference Range Comments POC-GLUCOSE METER (BEAKER) 191 mg/dL 70-110 TESTED AT [address] (test ideb=9200) [place] [address] HEMOGLOBIN AND [id number] 15:51:00 Test Item Value Reference Range Comments HEMOGLOBIN (BEAKER) (test yqga=480) 7.4 GM/DL 13.7-17.5 HEMATOCRIT (BEAKER) (test rdgd=768) 23.9 % 40.1-51.0 POCT-GLUCOSE [id number] 13:02:00 Test Item Value Reference Range Comments POC-GLUCOSE METER (BEAKER) 190 mg/dL 70-110 TESTED AT [address] (test zwxr=6473) [place] [address] POCT-GLUCOSE [id number] 08:10:00 Test Item Value Reference Range Comments POC-GLUCOSE METER (BEAKER) 176 mg/dL 70-110 TESTED AT [address] (test oyqf=1010) [place] [address] RAD, CHEST, 1 VIEW, NON [id number] 07:47:00Reason for exam:->pl effusionShould this be performed at the bedside?->YesFINAL REPORT Chest one view compared to November 30 Discussion: Mild pulmonary congestion and probable left lower lung atelectasis. I could not exclude small left effusion. No pneumothorax. IMPRESSIONS: Similar cardiopulmonary appearance. Signed: Atul Mcdonough Verified Date/Time: 12/01/2017 07:47: 00 Reading Location: [facility] Radiology Reading Room BASIC METABOLIC [id number] 05:25:00 Test Item Value Reference Range Comments SODIUM (BEAKER) (test 138 meq/L 136-145 vgct=723) POTASSIUM (BEAKER) (test 3.9 meq/L 3.5-5.1 snuj=128) CHLORIDE (BEAKER) (test 106 meq/L 98-107 ozjs=588) CO2 (BEAKER) (test 26 meq/L 22-29 qnkh=589) BLOOD UREA NITROGEN 13 mg/dL 7-21 (BEAKER) (test nmlf=186) CREATININE (BEAKER) (test 0.75 mg/dL 0.57-1.25 echy=268) GLUCOSE RANDOM (BEAKER) 157 mg/dL 70-105 (test vstx=436) CALCIUM (BEAKER) (test 8.2 mg/dL 8.4-10.2 qjrs=610) EGFR (BEAKER) (test mL/min/1.73 sq m INSUFFICIENT CLINICAL DATA qmgu=9281) TO CALCULATE ESTIMATED GFR. [id number] 05:18:00 Test Item Value Reference Range Comments MAGNESIUM (BEAKER) (test uylf=401) 1.8 mg/dL 1.6-2.6 CBC W/PLT COUNT & AUTO [id number] 04:59:00 Test Item Value Reference Range Comments WHITE BLOOD CELL COUNT (BEAKER) (test hosi=493) 7.8 K/ L 3.5-10.5 RED BLOOD CELL COUNT (BEAKER) (test cbcn=942) 2.55 M/ L 4.63-6.08 HEMOGLOBIN (BEAKER) (test teae=258) 7.1 GM/DL 13.7-17.5 HEMATOCRIT (BEAKER) (test jqgu=641) 22.5 % 40.1-51.0 MEAN CORPUSCULAR VOLUME (BEAKER) (test cvyp=758) 88.2 fL 79.0-92.2 MEAN CORPUSCULAR HEMOGLOBIN (BEAKER) (test 27.8 pg 25.7-32.2 vtyy=401) MEAN CORPUSCULAR HEMOGLOBIN CONC (BEAKER) (test 31.6 GM/DL 32.3-36.5 eygu=239) RED CELL DISTRIBUTION WIDTH (BEAKER) (test 14.2 % 11.6-14.4 zvyf=722) PLATELET COUNT (BEAKER) (test oluk=296) 113 K/CU MM 150-450 MEAN PLATELET VOLUME (BEAKER) (test wiml=156) 11.9 fL 9.4-12.4 NUCLEATED RED BLOOD CELLS (BEAKER) (test 0 /100 WBC 0-0 xtor=990) NEUTROPHILS RELATIVE PERCENT (BEAKER) (test 72 % nvrd=981) LYMPHOCYTES RELATIVE PERCENT (BEAKER) (test 18 % eqir=433) MONOCYTES RELATIVE PERCENT (BEAKER) (test 9 % iyfh=659) EOSINOPHILS RELATIVE PERCENT (BEAKER) (test 1 % kdga=564) BASOPHILS RELATIVE PERCENT (BEAKER) (test 0 % tdpy=482) NEUTROPHILS ABSOLUTE COUNT (BEAKER) (test 5.64 K/ L 1.78-5.38 jllc=051) LYMPHOCYTES ABSOLUTE COUNT (BEAKER) (test 1.36 K/ L 1.32-3.57 gcpt=332) MONOCYTES ABSOLUTE COUNT (BEAKER) (test 0.70 K/ L 0.30-0.82 shmh=582) EOSINOPHILS ABSOLUTE COUNT (BEAKER) (test 0.05 K/ L 0.04-0.54 muku=115) BASOPHILS ABSOLUTE COUNT (BEAKER) (test 0.01 K/ L 0.01-0.08 akhc=866) IMMATURE GRANULOCYTES-RELATIVE PERCENT (BEAKER) 0 % 0-1 (test gzhp=8356) POCT-GLUCOSE [id number] 22:11:00 Test Item Value Reference Range Comments POC-GLUCOSE METER (BEAKER) 190 mg/dL 70-110 TESTED AT [address] (test xypg=4810) [facility] [address] POCT-GLUCOSE [id number] 16:58:00 Test Item Value Reference Range Comments POC-GLUCOSE METER (BEAKER) 193 mg/dL 70-110 TESTED AT [address] (test zcao=5193) [place] [id number] CBC (HEMOGRAM ONLY)[id number] 13:05:00 Test Item Value Reference Range Comments WHITE BLOOD CELL COUNT (BEAKER) (test wuzi=270) 9.1 K/ L 3.5-10.5 RED BLOOD CELL COUNT (BEAKER) (test uisv=997) 3.01 M/ L 4.63-6.08 HEMOGLOBIN (BEAKER) (test tgek=302) 8.3 GM/DL 13.7-17.5 HEMATOCRIT (BEAKER) (test aezu=497) 26.5 % 40.1-51.0 MEAN CORPUSCULAR VOLUME (BEAKER) (test ofyt=247) 88.0 fL 79.0-92.2 MEAN CORPUSCULAR HEMOGLOBIN (BEAKER) (test 27.6 pg 25.7-32.2 cixz=737) MEAN CORPUSCULAR HEMOGLOBIN CONC (BEAKER) (test 31.3 GM/DL 32.3-36.5 rprk=721) RED CELL DISTRIBUTION WIDTH (BEAKER) (test 14.1 % 11.6-14.4 soka=527) PLATELET COUNT (BEAKER) (test xmgm=336) 128 K/CU MM 150-450 MEAN PLATELET VOLUME (BEAKER) (test rkrc=443) 11.8 fL 9.4-12.4 NUCLEATED RED BLOOD CELLS (BEAKER) (test 0 /100 WBC 0-0 xtod=930) POCT-GLUCOSE [id number] 12:06:00 Test Item Value Reference Range Comments POC-GLUCOSE METER (BEAKER) 142 mg/dL 70-110 TESTED AT [address] (test gwiz=0987) [place] [address] POCT-GLUCOSE [id number] 09:23:00 Test Item Value Reference Range Comments POC-GLUCOSE METER (BEAKER) 108 mg/dL 70-110 TESTED AT [address] (test zfkf=6089) [place] [address] [id number] 05:44:00 Test Item Value Reference Range Comments ACTIVATED CLOTTING TIME 103 sec TESTED AT [address] (BEAKER) (test vbcp=782) [place] [address] [id number] 05:44:00 Test Item Value Reference Range Comments ACTIVATED CLOTTING TIME 439 sec TESTED AT [address] ([facility]) (test wppf=734) [place] [id number] 05:44:00 Test Item Value Reference Range Comments ACTIVATED CLOTTING TIME 604 sec TESTED AT [address] ([facility]) (test jrpa=350) [place] [address] [id number] 05:44:00 Test Item Value Reference Range Comments ACTIVATED CLOTTING TIME 444 sec TESTED AT [address] ([facility]) (test aohd=822) [place] [address] POCT-GLUCOSE [id number] 04:45:00 Test Item Value Reference Range Comments POC-GLUCOSE METER ([facility]) 122 mg/dL 70-110 TESTED AT [address] (test qioq=2746) [place] [address] RAD, CHEST, 1 VIEW, NON [id number] 04:40:00while patient is intubated or has chest [...] MDReport Verified Date/Time: 11/30/2017 04:40:05 Reading Location: [address] Reading Room Electronically signed by: CHRISTINA ARAIZA on 04:40 AMCBC W/PLT COUNT & AUTO [id number] 03:49:00 Test Item Value Reference Range Comments WHITE BLOOD CELL COUNT ([facility]) (test bqnb=259) 7.6 K/ L 3.5-10.5 RED BLOOD CELL COUNT ([facility]) (test izeg=437) 3.09 M/ L 4.63-6.08 HEMOGLOBIN (BEAKER) (test kxgq=930) 8.5 GM/DL 13.7-17.5 HEMATOCRIT (BEAKER) (test tpkv=003) 27.4 % 40.1-51.0 MEAN CORPUSCULAR VOLUME (BEAKER) (test fqux=120) 88.7 fL 79.0-92.2 MEAN CORPUSCULAR HEMOGLOBIN (BEAKER) (test 27.5 pg 25.7-32.2 rdrv=036) MEAN CORPUSCULAR HEMOGLOBIN CONC (BEAKER) (test 31.0 GM/DL 32.3-36.5 knnl=155) RED CELL DISTRIBUTION WIDTH (BEAKER) (test 14.2 % 11.6-14.4 qsbi=655) PLATELET COUNT (BEAKER) (test svlf=163) 123 K/CU MM 150-450 MEAN PLATELET VOLUME (BEAKER) (test bfzz=622) 11.3 fL 9.4-12.4 NUCLEATED RED BLOOD CELLS (BEAKER) (test 0 /100 WBC 0-0 esro=049) NEUTROPHILS RELATIVE PERCENT (BEAKER) (test 84 % ptdx=898) LYMPHOCYTES RELATIVE PERCENT (BEAKER) (test 9 % xqjm=213) MONOCYTES RELATIVE PERCENT (BEAKER) (test 6 % cbny=992) EOSINOPHILS RELATIVE PERCENT (BEAKER) (test 0 % dkfa=709) BASOPHILS RELATIVE PERCENT (BEAKER) (test 0 % peog=888) NEUTROPHILS ABSOLUTE COUNT (BEAKER) (test 6.44 K/ L 1.78-5.38 ukhv=238) LYMPHOCYTES ABSOLUTE COUNT (BEAKER) (test 0.65 K/ L 1.32-3.57 aiwr=175) MONOCYTES ABSOLUTE COUNT (BEAKER) (test 0.49 K/ L 0.30-0.82 mwxw=021) EOSINOPHILS ABSOLUTE COUNT (BEAKER) (test 0.01 K/ L 0.04-0.54 elpd=927) BASOPHILS ABSOLUTE COUNT (BEAKER) (test 0.01 K/ L 0.01-0.08 mcwa=320) IMMATURE GRANULOCYTES-RELATIVE PERCENT (BEAKER) 1 % 0-1 (test avrd=9174) BASIC METABOLIC [id number] 03:49:00 Test Item Value Reference Range Comments SODIUM (BEAKER) (test 141 meq/L 136-145 kcze=355) POTASSIUM (BEAKER) (test 4.0 meq/L 3.5-5.1 twtx=832) CHLORIDE (BEAKER) (test 110 meq/L 98-107 saan=082) CO2 (BEAKER) (test 24 meq/L 22-29 steb=854) BLOOD UREA NITROGEN 10 mg/dL 7-21 (BEAKER) (test bbel=368) CREATININE (BEAKER) (test 0.71 mg/dL 0.57-1.25 pdmx=916) GLUCOSE RANDOM (BEAKER) 147 mg/dL 70-105 (test aawn=354) CALCIUM (BEAKER) (test 7.8 mg/dL 8.4-10.2 xwuu=764) EGFR (BEAKER) (test mL/min/1.73 sq m INSUFFICIENT CLINICAL DATA wrrs=6183) TO CALCULATE ESTIMATED GFR. [id number] 03:42:00 Test Item Value Reference Range Comments MAGNESIUM (BEAKER) (test qpnk=286) 1.9 mg/dL 1.6-2.6 POCT-GLUCOSE [id number] 03:04:00 Test Item Value Reference Range Comments POC-GLUCOSE METER (BEAKER) 143 mg/dL 70-110 TESTED AT [address] (test qqgu=2953) [place] [id number] POCT-GLUCOSE [id number] 02:04:00 Test Item Value Reference Range Comments POC-GLUCOSE METER (BEAKER) 146 mg/dL 70-110 TESTED AT [address] (test nxyc=3485) [place] [id number] POCT-GLUCOSE [id number] 01:04:00 Test Item Value Reference Range Comments POC-GLUCOSE METER (BEAKER) 203 mg/dL 70-110 TESTED AT [address] (test zotd=8811) [place] [address] [id number] 01:03:00 Test Item Value Reference Range Comments POTASSIUM (BEAKER) (test nwvf=180) 4.3 meq/L 3.5-5.1 [id number] 01:03:00 Test Item Value Reference Range Comments MAGNESIUM (BEAKER) (test kgan=333) 2.1 mg/dL 1.6-2.6 CALCIUM, [id number] 00:29:00 Test Item Value Reference Range Comments CALCIUM IONIZED (BEAKER) (test svyj=942) 1.08 mmol/L 1.12-1.27 PH, BLOOD (BEAKER) (test azlx=1346) 7.39 POCT-GLUCOSE [id number] 00:09:00 Test Item Value Reference Range Comments POC-GLUCOSE METER (BEAKER) 214 mg/dL 70-110 TESTED AT [address] (test zimy=6113) [place] [id number] POCT-GLUCOSE [id number] 22:51:00 Test Item Value Reference Range Comments POC-GLUCOSE METER (BEAKER) 179 mg/dL 70-110 TESTED AT [address] (test rfab=8968) [place] [id number] POCT-GLUCOSE [id number] 22:13:00 Test Item Value Reference Range Comments POC-GLUCOSE METER (BEAKER) 206 mg/dL 70-110 TESTED AT [address] (test ymxl=3284) [place] [id number] BLOOD GAS, [id number] 21:08:00 Test Item Value Reference Range Comments PH ARTERIAL (BEAKER) (test ualj=027) 7.35 7.35-7.45 PCO2 ARTERIAL (BEAKER) (test vijn=929) 43 mmHg 35-45 PO2 ARTERIAL (BEAKER) (test jjog=678) 136 mmHg 80-90 O2 SATURATION ARTERIAL (BEAKER) (test ayrc=428) 98.6 % 96.0-97.0 HCO3 ARTERIAL (BEAKER) (test lyxv=746) 23 mmol/L 21-29 BASE EXCESS ARTERIAL (BEAKER) (test wjeh=622) -2.1 mmol/L -2.0-3.0 PATIENT TEMPERATURE (BEAKER) (test czda=8397) 37.1 C FIO2 (BEAKER) (test yjhb=0738) 36.0 % Post extubation ABGPOCT-GLUCOSE [id number] 21:03:00 Test Item Value Reference Range Comments POC-GLUCOSE METER (BEAKER) 197 mg/dL 70-110 TESTED AT [address] (test mqzu=1822) [place] [id number] POCT-GLUCOSE [id number] 20:47:00 Test Item Value Reference Range Comments POC-GLUCOSE METER (BEAKER) 197 mg/dL 70-110 TESTED AT [address] (test nibn=1332) [place] [address] [id number] 20:10:00 Test Item Value Reference Range Comments MAGNESIUM (BEAKER) (test zxgn=441) 2.3 mg/dL 1.6-2.6 Check Serum Magnesium level 2 hours after IV magnesium replacement.POCT-GLUCOSE [id number] 20:02:00 Test Item Value Reference Range Comments POC-GLUCOSE METER (BEAKER) 234 mg/dL 70-110 TESTED AT [address] (test vrza=3802) [place] [address] BLOOD GAS, [id number] 19:57:00 Test Item Value Reference Range Comments PH ARTERIAL (BEAKER) (test phtr=747) 7.36 7.35-7.45 PCO2 ARTERIAL (BEAKER) (test oynm=276) 41 mmHg 35-45 PO2 ARTERIAL (BEAKER) (test bgnz=258) 121 mmHg 80-90 O2 SATURATION ARTERIAL (BEAKER) (test dtfi=270) 98.2 % 96.0-97.0 HCO3 ARTERIAL (BEAKER) (test qxoe=812) 23 mmol/L 21-29 BASE EXCESS ARTERIAL (BEAKER) (test epzh=256) -2.7 mmol/L -2.0-3.0 PATIENT TEMPERATURE (BEAKER) (test afxv=4207) 37.2 C FIO2 (BEAKER) (test pogy=0555) 40.0 % POCT-GLUCOSE [id number] 18:44:00 Test Item Value Reference Range Comments POC-GLUCOSE METER (BEAKER) 209 mg/dL 70-110 TESTED AT [address] (test tqib=7309) [place] [address] BASIC METABOLIC [id number] 16:13:00 Test Item Value Reference Range Comments SODIUM (BEAKER) (test 141 meq/L 136-145 hctr=342) POTASSIUM (BEAKER) (test 4.4 meq/L 3.5-5.1 Specimen slightly cgcq=274) hemolyzed CHLORIDE (BEAKER) (test 112 meq/L 98-107 rbjz=090) CO2 (BEAKER) (test 22 meq/L 22-29 rxnd=785) BLOOD UREA NITROGEN 13 mg/dL 7-21 (BEAKER) (test hpfy=037) CREATININE (BEAKER) (test 0.73 mg/dL 0.57-1.25 Specimen slightly oqtm=731) hemolyzed GLUCOSE RANDOM (BEAKER) 179 mg/dL 70-105 (test wimo=505) CALCIUM (BEAKER) (test 7.5 mg/dL 8.4-10.2 ejtb=967) EGFR (BEAKER) (test mL/min/1.73 sq m INSUFFICIENT CLINICAL DATA nphm=6036) TO CALCULATE ESTIMATED GFR. RAD, CHEST, 1 VIEW, NON [id number] 16:13:00Reason for exam:->intubated, chest tubesShould this be [...] Verified Date /Time: 11/29/2017 16:13:26 Reading Location: [facility] Radiology Reading Room [id number] 16:12:00 Test Item Value Reference Range Comments PARTIAL THROMBOPLASTIN TIME (BEAKER) (test 31.4 seconds 22.5-36.0 vskj=014) PROTHROMBIN [id number] 16:11:00 Test Item Value Reference Range Comments PROTIME (BEAKER) (test eqct=558) 17.6 seconds 11.7-14.7 INR (BEAKER) (test vvxn=202) 1.5 <=5.9 RECOMMENDED COUMADIN/WARFARIN INR THERAPY RANGESSTANDARD DOSE: 2.0 - 3.0 Includes: PROPHYLAXIS forvenous thrombosis, systemic embolization; TREATMENT for venous thrombosis and/or pulmonary embolus.HIGH RISK: Target INR is 2.5-3.5 for patients with mechanical heart valves.[id number] 16:11:00 Test Item Value Reference Range Comments MAGNESIUM (BEAKER) (test 1.7 mg/dL 1.6-2.6 Specimen slightly hemolyzed abyg=652) LACTIC ACID, ARTERIAL, WHOLE [id number] 16:06:00 Test Item Value Reference Range Comments LACTATE BLOOD ARTERIAL (2) 1.2 mmol/L 0.5-2.2 Specimen slightly hemolyzed (BEAKER) (test kmjp=5470) Effective 02/18/2016: Units/Reference Range ChangeNew: 0.5-2.2 mmol/L Previous: 5 -20 mg/dLCBC W/PLT COUNT & AUTO [id number] 16:02:00 Test Item Value Reference Range Comments WHITE BLOOD CELL COUNT (BEAKER) (test buwa=923) 11.5 K/ L 3.5-10.5 RED BLOOD CELL COUNT (BEAKER) (test mncx=643) 3.42 M/ L 4.63-6.08 HEMOGLOBIN (BEAKER) (test cyhe=034) 9.6 GM/DL 13.7-17.5 HEMATOCRIT (BEAKER) (test iiyc=336) 30.6 % 40.1-51.0 MEAN CORPUSCULAR VOLUME (BEAKER) (test bdyc=660) 89.5 fL 79.0-92.2 MEAN CORPUSCULAR HEMOGLOBIN (BEAKER) (test 28.1 pg 25.7-32.2 xhnz=975) MEAN CORPUSCULAR HEMOGLOBIN CONC (BEAKER) (test 31.4 GM/DL 32.3-36.5 pvir=339) RED CELL DISTRIBUTION WIDTH (BEAKER) (test 14.0 % 11.6-14.4 jgdz=073) PLATELET COUNT (BEAKER) (test vwni=305) 100 K/CU MM 150-450 MEAN PLATELET VOLUME (BEAKER) (test irlm=588) 10.7 fL 9.4-12.4 NUCLEATED RED BLOOD CELLS (BEAKER) (test 0 /100 WBC 0-0 xsqv=695) NEUTROPHILS RELATIVE PERCENT (BEAKER) (test 80 % jjjs=956) LYMPHOCYTES RELATIVE PERCENT (BEAKER) (test 11 % ftxi=720) MONOCYTES RELATIVE PERCENT (BEAKER) (test 8 % aqhz=695) EOSINOPHILS RELATIVE PERCENT (BEAKER) (test 0 % mudu=687) BASOPHILS RELATIVE PERCENT (BEAKER) (test 0 % etnp=958) NEUTROPHILS ABSOLUTE COUNT (BEAKER) (test 9.14 K/ L 1.78-5.38 tpbx=008) LYMPHOCYTES ABSOLUTE COUNT (BEAKER) (test 1.25 K/ L 1.32-3.57 wyqx=272) MONOCYTES ABSOLUTE COUNT (BEAKER) (test 0.93 K/ L 0.30-0.82 knjn=786) EOSINOPHILS ABSOLUTE COUNT (BEAKER) (test 0.05 K/ L 0.04-0.54 togy=983) BASOPHILS ABSOLUTE COUNT (BEAKER) (test 0.02 K/ L 0.01-0.08 clmo=871) IMMATURE GRANULOCYTES-RELATIVE PERCENT (BEAKER) 1 % 0-1 (test naed=3538) OXYGEN SATURATION, [id number] 15:54:00 Test Item Value Reference Range Comments O2 SATURATION (MEASURED) (BEAKER) (test fvxm=7891) 64.9 % From distal port of IJ central venous catheterSODIUM NA-STAT [id number] 15:54 :00 Test Item Value Reference Range Comments SODIUM (BEAKER) (test mlax=189) 138 meq/L 135-148 POTASSIUM-STAT [id number] 15:54:00 Test Item Value Reference Range Comments POTASSIUM (BEAKER) (test lwva=352) 4.2 meq/L 3.6-5.5 BLOOD GAS, [id number] 15:54:00 Test Item Value Reference Range Comments PH ARTERIAL (BEAKER) (test unvg=402) 7.33 7.35-7.45 PCO2 ARTERIAL (BEAKER) (test jdtq=050) 46 mmHg 35-45 PO2 ARTERIAL (BEAKER) (test jild=036) 155 mmHg 80-90 O2 SATURATION ARTERIAL (BEAKER) (test hyth=613) 98.9 % 96.0-97.0 HCO3 ARTERIAL (BEAKER) (test mafv=883) 24 mmol/L 21-29 BASE EXCESS ARTERIAL (BEAKER) (test qgal=843) -2.4 mmol/L -2.0-3.0 PATIENT TEMPERATURE (BEAKER) (test wxae=0775) 35.4 C FIO2 (BEAKER) (test uane=2448) 60.0 % CALCIUM, [id number] 15:54:00 Test Item Value Reference Range Comments CALCIUM IONIZED (BEAKER) (test wsyd=554) 1.06 mmol/L 1.12-1.27 PH, BLOOD (BEAKER) (test shjw=5024) 7.31 GLUCOSE-STAT [id number] 15:54:00 Test Item Value Reference Range Comments GLUCOSE RANDOM (BEAKER) (test yimh=616) 173 mg/dL 70-110 HGB/HCT (H&H) - STAT [id number] 15:54:00 Test Item Value Reference Range Comments HEMOGLOBIN (BEAKER) (test dphz=834) 10.3 g/dL 13.0-16.8 HEMATOCRIT (BEAKER) (test gcnf=292) 30.0 % 40.0-50.0 THROMBOELASTOGRAPH (TEG)[id number] 15:16:00 Test Item Value Reference Range Comments TEG ACTIVATED CLOTTING TIME (BEAKER) (test 5.5 minutes 4.0-7.0 mlol=9299) TEG FIBRINOGEN ACTIVITY (BEAKER) (test 62.6 degrees 61.0-73.0 exao=3523) TEG PLT. AGGREGATION (BEAKER) (test kykr=2428) 52.3 MM 55.0-65.0 TGH ACTIVATED CLOTTING TIME (BEAKER) (test 5.5 minutes 4.0-7.0 nkei=8407) TGH FIBRINOGEN ACTIVITY (BEAKER) (test 65.7 degrees 61.0-73.0 ixia=3972) TGH PLT. AGGREGATION (BEAKER) (test nxer=1307) 56.4 MM 55.0-65.0 PLATELET [id number] 14:50:00 Test Item Value Reference Range Comments PLATELET COUNT (BEAKER) (test bxnn=527) 98 K/CU MM 150-450 [id number] 14:27:00 Test Item Value Reference Range Comments FIBRINOGEN LEVEL (BEAKER) (test hyvq=030) 176 mg/dl 225-434 PROTHROMBIN [id number] 14:14:00 Test Item Value Reference Range Comments PROTIME (BEAKER) (test onlk=423) 20.7 seconds 11.7-14.7 INR (BEAKER) (test dmsm=394) 1.8 <=5.9 RECOMMENDED COUMADIN/WARFARIN INR THERAPY RANGESSTANDARD DOSE: 2.0 - 3.0 Includes: PROPHYLAXIS forvenous thrombosis, systemic embolization; TREATMENT for venous thrombosis and/or pulmonary embolus.HIGH RISK: Target INR is 2.5-3.5 for patients with mechanical heart valves.[id number] 14:14:00 Test Item Value Reference Range Comments PARTIAL THROMBOPLASTIN TIME (BEAKER) (test 30.2 seconds 22.5-36.0 wqhk=848) CALCIUM, [id number] 13:55:00 Test Item Value Reference Range Comments CALCIUM IONIZED (BEAKER) (test niha=017) 1.13 mmol/L 1.12-1.27 PH, BLOOD (BEAKER) (test cmsz=5031) 7.30 BLOOD GAS, [id number] 13:55:00 Test Item Value Reference Range Comments PH ARTERIAL (BEAKER) (test ozga=454) 7.32 7.35-7.45 PCO2 ARTERIAL (BEAKER) (test eeuk=131) 49 mmHg 35-45 PO2 ARTERIAL (BEAKER) (test gowy=585) 358 mmHg 80-90 O2 SATURATION ARTERIAL (BEAKER) (test txqc=424) 99.7 % 96.0-97.0 HCO3 ARTERIAL (BEAKER) (test xqxr=601) 25 mmol/L 21-29 BASE EXCESS ARTERIAL (BEAKER) (test qczw=283) -2.1 mmol/L -2.0-3.0 PATIENT TEMPERATURE (BEAKER) (test hhjw=1954) 36.0 C FIO2 (BEAKER) (test dbwo=7938) 100.0 % GLUCOSE-STAT [id number] 13:55:00 Test Item Value Reference Range Comments GLUCOSE RANDOM (BEAKER) (test vkgs=596) 201 mg/dL 70-110 HGB/HCT (H&H) - STAT [id number] 13:55:00 Test Item Value Reference Range Comments HEMOGLOBIN (BEAKER) (test cxey=103) 9.7 g/dL 13.0-16.8 HEMATOCRIT (BEAKER) (test ixlt=398) 29.0 % 40.0-50.0 SODIUM NA-STAT [id number] 13:54:00 Test Item Value Reference Range Comments SODIUM (BEAKER) (test hfbz=649) 137 meq/L 135-148 POTASSIUM-STAT [id number] 13:54:00 Test Item Value Reference Range Comments POTASSIUM (BEAKER) (test xbuk=181) 3.9 meq/L 3.6-5.5 BLOOD GAS, [id number] 13:22:00 Test Item Value Reference Range Comments PH ARTERIAL (BEAKER) (test ttjq=522) 7.32 7.35-7.45 PCO2 ARTERIAL (BEAKER) (test qgjw=907) 50 mmHg 35-45 PO2 ARTERIAL (BEAKER) (test czsa=313) 284 mmHg 80-90 O2 SATURATION ARTERIAL (BEAKER) (test ybfe=441) 99.6 % 96.0-97.0 HCO3 ARTERIAL (BEAKER) (test fcev=370) 25 mmol/L 21-29 BASE EXCESS ARTERIAL (BEAKER) (test zfwx=693) -1.2 mmol/L -2.0-3.0 PATIENT TEMPERATURE (BEAKER) (test ywut=9723) 36.5 C FIO2 (BEAKER) (test pxcs=4110) 80.0 % GLUCOSE-STAT [id number] 13:22:00 Test Item Value Reference Range Comments GLUCOSE RANDOM (BEAKER) (test rvyy=313) 191 mg/dL 70-110 HGB/HCT (H&H) - STAT [id number] 13:22:00 Test Item Value Reference Range Comments HEMOGLOBIN (BEAKER) (test hvpo=774) 9.3 g/dL 13.0-16.8 HEMATOCRIT (BEAKER) (test jydc=481) 27.0 % 40.0-50.0 SODIUM NA-STAT [id number] 13:18:00 Test Item Value Reference Range Comments SODIUM (BEAKER) (test bfey=435) 136 meq/L 135-148 POTASSIUM-STAT [id number] 13:18:00 Test Item Value Reference Range Comments POTASSIUM (BEAKER) (test qlzx=433) 4.6 meq/L 3.6-5.5 BLOOD GAS, [id number] 12:39:00 Test Item Value Reference Range Comments PH ARTERIAL (BEAKER) (test iwvo=521) 7.40 7.35-7.45 PCO2 ARTERIAL (BEAKER) (test wziv=353) 39 mmHg 35-45 PO2 ARTERIAL (BEAKER) (test yamt=942) 191 mmHg 80-90 O2 SATURATION ARTERIAL (BEAKER) (test whha=507) 99.4 % 96.0-97.0 HCO3 ARTERIAL (BEAKER) (test pexr=592) 25 mmol/L 21-29 BASE EXCESS ARTERIAL (BEAKER) (test rtiw=888) -1.2 mmol/L -2.0-3.0 PATIENT TEMPERATURE (BEAKER) (test ekny=5229) 32.2 C FIO2 (BEAKER) (test jnmo=1611) 60.0 % SODIUM NA-STAT [id number] 12:39:00 Test Item Value Reference Range Comments SODIUM (BEAKER) (test qnvc=322) 134 meq/L 135-148 GLUCOSE-STAT [id number] 12:39:00 Test Item Value Reference Range Comments GLUCOSE RANDOM (BEAKER) (test fgim=326) 166 mg/dL 70-110 HGB/HCT (H&H) - STAT [id number] 12:39:00 Test Item Value Reference Range Comments HEMOGLOBIN (BEAKER) (test lbya=677) 9.9 g/dL 13.0-16.8 HEMATOCRIT (BEAKER) (test npaa=457) 29.0 % 40.0-50.0 POTASSIUM-STAT [id number] 12:38:00 Test Item Value Reference Range Comments POTASSIUM (BEAKER) (test ltbt=603) 4.4 meq/L 3.6-5.5 SODIUM NA-STAT [id number] 11:22:00 Test Item Value Reference Range Comments SODIUM (BEAKER) (test fodv=475) 140 meq/L 135-148 POTASSIUM-STAT [id number] 11:22:00 Test Item Value Reference Range Comments POTASSIUM (BEAKER) (test qnkn=876) 4.0 meq/L 3.6-5.5 HGB/HCT (H&H) - STAT [id number] 11:22:00 Test Item Value Reference Range Comments HEMOGLOBIN (BEAKER) (test vtit=468) 14.5 g/dL 13.0-16.8 HEMATOCRIT (BEAKER) (test cpyx=814) 43.0 % 40.0-50.0 BLOOD GAS, [id number] 11:22:00 Test Item Value Reference Range Comments PH ARTERIAL (BEAKER) (test ybib=507) 7.38 7.35-7.45 PCO2 ARTERIAL (BEAKER) (test euxa=589) 49 mmHg 35-45 PO2 ARTERIAL (BEAKER) (test bunp=111) 295 mmHg 80-90 O2 SATURATION ARTERIAL (BEAKER) (test oaky=620) 99.7 % 96.0-97.0 HCO3 ARTERIAL (BEAKER) (test ompi=863) 28 mmol/L 21-29 BASE EXCESS ARTERIAL (BEAKER) (test aqsj=217) 1.7 mmol/L -2.0-3.0 PATIENT TEMPERATURE (BEAKER) (test hhqv=2973) 35.7 C FIO2 (BEAKER) (test wdmf=7863) 100.0 % GLUCOSE-STAT [id number] 11:22:00 Test Item Value Reference Range Comments GLUCOSE RANDOM (BEAKER) (test obps=978) 112 mg/dL 70-110 PLATELET AGGREGATION: FUNCTION [id number] 09:52:00 Test Item Value Reference Range Comments WEAK ADP RESULT(BEAKER) (test 68 % 60-91 jryk=5147) PLATELET FUNCTION SCREEN 60-100% indicates normal INTERP (BEAKER) (test platelet function fyri=6515) [id number] (BEAKER) Batsheva Llamas MD (electronic (test rrwo=3571) signature) PLATELET COUNT AGG (BEAKER) 176 K/CU MM 150-450 (test szjg=6454) RAD, CHEST, 1 VIEW, NON [id number] 08:51:00Reason for exam:->preop for CV surgeryFINAL REPORT [...] Parmarort Verified Date/Time: 11/29/2017 08:51:39 Reading Location: [facility] Electronically signed by: CESARIO PARMAR M.D.on 11/29/2017 08:51 AMPOCT-GLUCOSE [id number] 07:42:00 Test Item Value Reference Range Comments POC-GLUCOSE METER (BEAKER) 105 mg/dL 70-110 [facility] [address] [facility] (test yyio=2172) [facility] [address] COMPREHENSIVE METABOLIC [id number] 07:03:00 Test Item Value Reference Range Comments TOTAL PROTEIN (BEAKER) 7.9 gm/dL 6.0-8.3 (test ffjg=884) ALBUMIN (BEAKER) (test 4.0 g/dL 3.5-5.0 qtrg=3589) ALKALINE PHOSPHATASE 71 U/L 40-150 (BEAKER) (test yimr=479) BILIRUBIN TOTAL (BEAKER) 0.6 mg/dL 0.2-1.2 (test wuvm=410) SODIUM (BEAKER) (test 140 meq/L 136-145 jcer=792) POTASSIUM (BEAKER) (test 4.0 meq/L 3.5-5.1 zewz=025) CHLORIDE (BEAKER) (test 103 meq/L 98-107 owow=875) CO2 (BEAKER) (test 26 meq/L 22-29 ofhb=882) BLOOD UREA NITROGEN 14 mg/dL 7-21 (BEAKER) (test nvvf=205) CREATININE (BEAKER) (test 0.92 mg/dL 0.57-1.25 itmg=208) GLUCOSE RANDOM (BEAKER) 112 mg/dL 70-105 (test uxbw=112) CALCIUM (BEAKER) (test 9.1 mg/dL 8.4-10.2 vgyp=280) AST (SGOT) (BEAKER) (test 19 U/L 5-34 rhec=105) ALT (SGPT) (BEAKER) (test 26 U/L 6-55 whwp=928) EGFR (BEAKER) (test mL/min/1.73 sq m INSUFFICIENT CLINICAL DATA uehh=4745) TO CALCULATE ESTIMATED GFR. BASIC METABOLIC [id number] 07:03:00 Test Item Value Reference Range Comments SODIUM (BEAKER) (test 140 meq/L 136-145 ibzr=930) POTASSIUM (BEAKER) (test 4.0 meq/L 3.5-5.1 ggmz=487) CHLORIDE (BEAKER) (test 103 meq/L 98-107 eluj=701) CO2 (BEAKER) (test 26 meq/L 22-29 imhh=625) BLOOD UREA NITROGEN 14 mg/dL 7-21 (BEAKER) (test qmbl=554) CREATININE (BEAKER) (test 0.92 mg/dL 0.57-1.25 zths=688) GLUCOSE RANDOM (BEAKER) 112 mg/dL 70-105 (test vsfv=614) CALCIUM (BEAKER) (test 9.1 mg/dL 8.4-10.2 cqpm=157) EGFR (BEAKER) (test mL/min/1.73 sq m INSUFFICIENT CLINICAL DATA xcay=6369) TO CALCULATE ESTIMATED GFR. [id number] 06:54:00 Test Item Value Reference Range Comments MAGNESIUM (BEAKER) (test rcth=665) 1.9 mg/dL 1.6-2.6 PROTHROMBIN [id number] 06:46:00 Test Item Value Reference Range Comments PROTIME (BEAKER) (test ezjv=182) 13.4 seconds 11.7-14.7 INR (BEAKER) (test ldxy=682) 1.0 <=5.9 RECOMMENDED COUMADIN/WARFARIN INR THERAPY RANGESSTANDARD DOSE: 2.0 - 3.0 Includes: PROPHYLAXIS forvenous thrombosis, systemic embolization; TREATMENT for venous thrombosis and/or pulmonary embolus.HIGH RISK: Target INR is 2.5-3.5 for patients with mechanical heart valves.CBC W/PLT COUNT & AUTO [id number] 06:35:00 Test Item Value Reference Range Comments WHITE BLOOD CELL COUNT (BEAKER) (test folr=449) 6.8 K/ L 3.5-10.5 RED BLOOD CELL COUNT (BEAKER) (test pdgz=749) 5.32 M/ L 4.63-6.08 HEMOGLOBIN (BEAKER) (test ngsr=996) 14.6 GM/DL 13.7-17.5 HEMATOCRIT (BEAKER) (test bhvx=878) 47.0 % 40.1-51.0 MEAN CORPUSCULAR VOLUME (BEAKER) (test iglk=532) 88.3 fL 79.0-92.2 MEAN CORPUSCULAR HEMOGLOBIN (BEAKER) (test 27.4 pg 25.7-32.2 pjyr=826) MEAN CORPUSCULAR HEMOGLOBIN CONC (BEAKER) (test 31.1 GM/DL 32.3-36.5 floz=573) RED CELL DISTRIBUTION WIDTH (BEAKER) (test 13.8 % 11.6-14.4 ssej=774) PLATELET COUNT (BEAKER) (test zbya=508) 177 K/CU MM 150-450 MEAN PLATELET VOLUME (BEAKER) (test pvny=194) 11.2 fL 9.4-12.4 NUCLEATED RED BLOOD CELLS (BEAKER) (test 0 /100 WBC 0-0 kojt=503) NEUTROPHILS RELATIVE PERCENT (BEAKER) (test 57 % mnss=878) LYMPHOCYTES RELATIVE PERCENT (BEAKER) (test 32 % xwkm=436) MONOCYTES RELATIVE PERCENT (BEAKER) (test 7 % vhvf=585) EOSINOPHILS RELATIVE PERCENT (BEAKER) (test 4 % czqt=866) BASOPHILS RELATIVE PERCENT (BEAKER) (test 0 % qrya=087) NEUTROPHILS ABSOLUTE COUNT (BEAKER) (test 3.84 K/ L 1.78-5.38 ylqw=485) LYMPHOCYTES ABSOLUTE COUNT (BEAKER) (test 2.19 K/ L 1.32-3.57 xocc=036) MONOCYTES ABSOLUTE COUNT (BEAKER) (test 0.44 K/ L 0.30-0.82 tvzy=074) EOSINOPHILS ABSOLUTE COUNT (BEAKER) (test 0.24 K/ L 0.04-0.54 crvn=294) BASOPHILS ABSOLUTE COUNT (BEAKER) (test 0.02 K/ L 0.01-0.08 lkpg=764) IMMATURE GRANULOCYTES-RELATIVE PERCENT (BEAKER) 0 % 0-1 (test izoy=7206) POCT-GLUCOSE [id number] 21:53:00 Test Item Value Reference Range Comments POC-GLUCOSE METER (BEAKER) 131 mg/dL 70-110 TESTED AT [address] (test xudo=2161) [place] [address] HEMOGLOBIN [id number] 20:50:00 Test Item Value Reference Range Comments HEMOGLOBIN A1C (BEAKER) (test ibaz=063) 6.6 % 4.3-6.1 POCT-GLUCOSE [id number] 19:15:00 Test Item Value Reference Range Comments POC-GLUCOSE METER (BEAKER) 134 mg/dL 70-110 TESTED AT [address] (test esxc=1711) [place] [address] [id number] 18:35:00 Test Item Value Reference Range Comments PARTIAL THROMBOPLASTIN TIME (BEAKER) (test 32.4 seconds 22.5-36.0 iyxa=134) [id number] 18:34:00 Test Item Value Reference Range Comments FIBRINOGEN LEVEL (BEAKER) (test oerr=654) 372 mg/dl 225-434 TSH/FREE T4 IF [id number] 16:25:00 Test Item Value Reference Range Comments THYROID STIMULATING HORMONE (BEAKER) (test 2.53 uIU/mL 0.35-4.94 vune=851) BASIC METABOLIC [id number] 16:10:00 Test Item Value Reference Range Comments SODIUM (BEAKER) (test 139 meq/L 136-145 xmxy=348) POTASSIUM (BEAKER) (test 4.2 meq/L 3.5-5.1 qrnu=609) CHLORIDE (BEAKER) (test 106 meq/L 98-107 vyqj=230) CO2 (BEAKER) (test 25 meq/L 22-29 xmzn=206) BLOOD UREA NITROGEN 15 mg/dL 7-21 (BEAKER) (test gbeb=579) CREATININE (BEAKER) (test 0.90 mg/dL 0.57-1.25 dhhf=629) GLUCOSE RANDOM (BEAKER) 124 mg/dL 70-105 (test icya=630) CALCIUM (BEAKER) (test 8.8 mg/dL 8.4-10.2 stkc=176) EGFR (BEAKER) (test mL/min/1.73 sq m INSUFFICIENT CLINICAL DATA ltse=6210) TO CALCULATE ESTIMATED GFR. [id number] 16:09:00 Test Item Value Reference Range Comments PHOSPHORUS (BEAKER) (test wcym=163) 3.0 mg/dL 2.3-4.7 [id number] 16:09:00 Test Item Value Reference Range Comments MAGNESIUM (BEAKER) (test brdn=324) 2.0 mg/dL 1.6-2.6 LIPID [id number] 16:09:00 Test Item Value Reference Range Comments TRIGLYCERIDES (BEAKER) (test zzui=544) 263 mg/dL CHOLESTEROL (BEAKER) (test ezwj=971) 143 mg/dL HDL CHOLESTEROL (BEAKER) (test swdr=978) 32 mg/dL LDL CHOLESTEROL CALCULATED (BEAKER) (test 58 mg/dL zpsa=684) Triglyceride Reference Range: Low Risk <150 Borderline 150- 199 High Risk 200-499 Very High Risk >=500Cholesterol Reference Range: Low Risk <200 Borderline 200-239 High Risk > 240HDL Cholesterol Reference Range: Low Risk >=60 High Risk <40LDL Cholesterol Reference Range: Optimal <100 Near Optimal 100-129 Borderline 130-159 High 160-189 Very High >=190HEPATIC FUNCTION [id number] 16:09:00 Test Item Value Reference Range Comments TOTAL PROTEIN (BEAKER) (test hwdv=879) 7.5 gm/dL 6.0-8.3 ALBUMIN (BEAKER) (test xdio=8159) 3.8 g/dL 3.5-5.0 BILIRUBIN TOTAL (BEAKER) (test abfq=111) 0.4 mg/dL 0.2-1.2 BILIRUBIN DIRECT (BEAKER) (test cbzh=146) 0.2 mg/dL 0.1-0.5 ALKALINE PHOSPHATASE (BEAKER) (test jhvr=554) 72 U/L 40-150 AST (SGOT) (BEAKER) (test qgcn=079) 21 U/L 5-34 ALT (SGPT) (BEAKER) (test eugz=200) 22 U/L 6-55 [id number] 16:04:00 Test Item Value Reference Range Comments PROTIME (BEAKER) (test mcih=773) 14.5 seconds 11.7-14.7 INR (BEAKER) (test wgew=673) 1.1 <=5.9 PARTIAL THROMBOPLASTIN TIME (BEAKER) (test 29.6 seconds 22.5-36.0 ymwr=752) RECOMMENDED COUMADIN/WARFARIN INR THERAPY RANGESSTANDARD DOSE: 2.0 - 3.0 Includes: PROPHYLAXIS forvenous thrombosis, systemic embolization; TREATMENT for venous thrombosis and/or pulmonary embolus.HIGH RISK: Target INR is 2.5-3.5 for patients with mechanical heart valves.
[2019-09-02] MEDS ORDERED: NA CHLORIDE 0.9% 500 ML ONE (16:26)
[2019-09-02 16:37] LABS: Absolute Lymphocytes (CBC) 1.5 K/uL (0.7-4.9); Basophils % 0.7 % (0-1.3); Lymphocytes % 24.7 % (15.3-44.8); MPV 9.7 fL (7.6-11.3); RBC Red Blood Cell Count 5.57 M/uL (4.33-5.43)
[2019-09-02 16:38] LABS: Protime INR 1.04
--- NOTE | 2019-09-02 16:45 | EDPHYS ---
Physician Documentation [facility] Name: Armond Beltrán Age: 64 yrs Sex: Male : 1955 Arrival Date: 09/02/2019 Time: 16:10 Bed 6 Private MD: ED Physician Rico Quintero HPI: 09/02 16:34 This 64 yrs old Male presents to ER via Wheelchair with complaints of Chest corina Pain. 16:34 This 64 yrs old Male presents to ER via Wheelchair with complaints of Chest corina Pain. 16:34 The patient or guardian reports chest pain that is located primarily in the substernal corina area. Onset: just prior to arrival. The pain does not radiate. Associated signs and symptoms: The patient has no apparent associated signs or symptoms. The chest pain is described as a heaviness, a pressure. Severity of pain: At its worst the pain was mild. Historical: - Allergies: 16:11 NKA; aa5 - Home Meds: 16:31 finasteride 5 mg oral tab 1 tab once daily [Active]; tamsulosin 0.4 mg Oral cp24 1 cap aa5 [Active]; Glucovance 5-500 mg Oral tab 2 times per day [Active]; Valium 5 mg Oral tab [Active]; [place] 10-325 mg Oral tab for Pain [Active]; - PMHx: 16:11 Diabetes - NIDDM; Hypertension; Myocardial infarction; aa5 - PSHx: 16:11 Heart stents; BACK Sx; LEFT LEG; Quadriple heart bypass; aa5 - Immunization history:: Flu vaccine status is unknown. - Social history:: Smoking status: Patient/guardian denies using tobacco. - Ebola Screening: : No symptoms or risks identified at this time. - Family history:: not pertinent. ROS: 16:34 Constitutional: Negative for fever, chills, and weight loss, Eyes: Negative for injury, corina pain, redness, and discharge, ENT: Negative for injury, pain, and discharge, Neck: Negative for injury, pain, and swelling, Respiratory: Negative for shortness of breath, cough, wheezing, and pleuritic chest pain, Abdomen/GI: Negative for abdominal pain, nausea, vomiting, diarrhea, and constipation, Back: Negative for injury and pain, : Negative for injury, bleeding, discharge, and swelling, MS/Extremity: Negative for injury and deformity, Skin: Negative for injury, rash, and discoloration, Neuro: Negative for headache, weakness, numbness, tingling, and seizure, Psych: Negative for depression, anxiety, suicide ideation, homicidal ideation, and hallucinations, Allergy/Immunology: Negative for hives, rash, and allergies, Endocrine: Negative for neck swelling, polydipsia, polyuria, polyphagia, and marked weight changes, Hematologic/Lymphatic: Negative for swollen nodes, abnormal bleeding, and unusual bruising. 16:34 Cardiovascular: Positive for chest pain, of the chest. Exam: 16:34 Constitutional: This is a well developed, well nourished patient who is awake, alert, corina and in no acute distress. Head/Face: Normocephalic, atraumatic. Eyes: Pupils equal round and reactive to light, extra-ocular motions intact. Lids and lashes normal. Conjunctiva and sclera are non-icteric and not injected. Cornea within normal limits. Periorbital areas with no swelling, redness, or edema. ENT: Nares patent. No nasal discharge, no septal abnormalities noted. Tympanic membranes are normal and external auditory canals are clear. Oropharynx with no redness, swelling, or masses, exudates, or evidence of obstruction, uvula midline. Mucous membranes moist. Neck: Trachea midline, no thyromegaly or masses palpated, and no cervical lymphadenopathy. Supple, full range of motion without nuchal rigidity, or vertebral point tenderness. No Meningismus. Chest/axilla: Normal chest wall appearance and motion. Nontender with no deformity. No lesions are appreciated. Cardiovascular: Regular rate and rhythm with a normal S1 and S2. No gallops, murmurs, or rubs. Normal PMI, no JVD. No pulse deficits. Respiratory: Lungs have equal breath sounds bilaterally, clear to auscultation and percussion. No rales, rhonchi or wheezes noted. No increased work of breathing, no retractions or nasal flaring. Abdomen/GI: Soft, non-tender, with normal bowel sounds. No distension or tympany. No guarding or rebound. No evidence of tenderness throughout. Back: No spinal tenderness. No costovertebral tenderness. Full range of motion. Male : Normal genitalia with no discharge or lesions. Skin: Warm, dry with normal turgor. Normal color with no rashes, no lesions, and no evidence of cellulitis. MS/ Extremity: Pulses equal, no cyanosis. Neurovascular intact. Full, normal range of motion. Neuro: Awake and alert, GCS 15, oriented to person, place, time, and situation. Cranial nerves II-XII grossly intact. Motor strength 5/5 in all extremities. Sensory grossly intact. Cerebellar exam normal. Normal gait. Psych: Awake, alert, with orientation to person, place and time. Behavior, mood, and affect are within normal limits. Vital Signs: 16:12 BP 158 / 87; Pulse 71; Resp 16 S; Temp 98.5(O); Pulse Ox 96% on R/A; Weight 142.88 kg aa5 (R); Height 6 ft. 1 in. (185.42 cm) (R); Pain 7/10; 17:25 Pulse 63; Resp 18; Pulse Ox 100% on R/A; mg2 17:30 BP 147 / 88; mg2 16:12 Body Mass Index 41.56 (142.88 kg, 185.42 cm) aa5 MDM: 16:14 Patient medically screened. [facility] 16:40 Data reviewed: vital signs, nurses notes, lab test result(s), EKG, radiologic studies, [facility] scan, plain films. 09/02 16:11 [place] name: Basic Metabolic [place] [facility] [place] 16:11 Order name: CBC with Diff [facility] [place]/02 16:11 Order name: LFT's [facility] [place]/02 16:11 Order name: Magnesium mg2 09/02 16:11 Order name: NT PRO-BNP mg2 09/02 16:11 Order name: PT-INR [facility] [place]/02 16:11 Order name: Troponin (emerg Dept Use Only) mg2 09/02 16:11 Order name: XRAY Chest (1 view) mg2 09/02 16:38 Order name: Lipase EDMS 09/02 17:41 Order name: RAD EDMS 09/02 16:11 Order name: EKG; Complete Time: 16:12 mg2 09/02 16:11 Order name: Cardiac monitoring; Complete Time: 16:24 mg2 09/02 16:11 Order name: EKG - Nurse/Tech; Complete Time: 16:24 mg2 09/02 16:11 Order name: IV Saline Lock; Complete Time: 16:24 mg2 09/02 16:11 Order name: Labs collected and sent; Complete Time: 16:24 mg2 09/02 16:11 Order name: O2 Per Protocol; Complete Time: 16:24 mg2 09/02 16:11 Order name: O2 Sat Monitoring; Complete Time: 16:24 mg2 09/02 16:49 Order name: CONS Physician Consult EDMS Administered Medications: 16:51 Drug: NS 0.9% 1000 ml Route: IV; Rate: 75 ml/hr; Site: right upper arm; mg2 17:44 Follow up: Response: No adverse reaction; IV Status: Infusion continued upon admission; mg2 IV Intake: 70ml 17:10 Drug: Lovenox 1 mg/kg Route: Sub-Q; Site: right lower abdomen; mg2 17:44 Follow up: Response: No adverse reaction mg2 17:10 Drug: Lopressor 25 mg Route: PO; mg2 17:44 Follow up: Response: No adverse reaction mg2 17:10 Drug: morphine 4 mg Route: IVP; Site: right upper arm; mg2 17:43 Follow up: Response: No adverse reaction; RASS: Alert and Calm (0) mg2 17:10 Drug: Zofran 4 mg Route: IVP; Site: right upper arm; mg2 17:43 Follow up: Response: No adverse reaction mg2 17:10 Drug: Pepcid 20 mg Route: IVP; Site: right upper arm; mg2 17:43 Follow up: Response: No adverse reaction mg2 17:11 Drug: Aspirin 162 mg Route: PO; mg2 17:44 Follow up: Response: No adverse reaction mg2 Disposition: 09/02/19 16:44 Hospitalization ordered by James Rg for Inpatient Admission. Preliminary diagnosis are Other chest pain, Essential (primary) hypertension, Type 2 diabetes mellitus. - Bed requested for Telemetry/MedSurg (Inpatient). - Status is Inpatient Admission. aj1 - Condition is Fair. - Problem is new. - Symptoms have improved. UTI on Admission? No Signatures: Dispatcher [employer] EDMS Lizett Barajas RN RN aj1 Rico Quintero MD MD cha Martinez, Eric em1 Bridget Dhillon RN RN aa5 Everardo Ferraro RN RN mg2 Corrections: (The following items were deleted from the chart) 16:38 16:24 LIPASE+C.LAB.BRZ ordered. EDMS EDMS 17:16 16:44 Hospitalization Ordered by James Rg MD for Inpatient Admission. Preliminary em1 diagnosis is Other chest pain; Essential (primary) hypertension; Type 2 diabetes mellitus. Bed requested for Telemetry/MedSurg (Inpatient). Status is Inpatient Admission. Condition is Fair. Problem is new. Symptoms have improved. UTI on Admission? No. corina 18:07 17:16 09/02/2019 16:44 Hospitalization Ordered by James Rg MD for Inpatient aj1 Admission. Preliminary diagnosis is Other chest pain; Essential (primary) hypertension; Type 2 diabetes mellitus. Bed requested for Telemetry/MedSurg (Inpatient). Status is Inpatient Admission. Condition is Fair. Problem is new. Symptoms have improved. UTI on Admission? No. em1
--- NOTE | 2019-09-02 16:45 | ER ---
Nurse's Notes [facility] Name: Armond Beltrán Age: 64 yrs Sex: Male : 1955 Arrival Date: 09/02/2019 Time: 16:10 Bed 6 Private MD: Diagnosis: Other chest pain;Essential (primary) hypertension;Type 2 diabetes mellitus Presentation: 09/02 16:10 Presenting complaint: Patient states: right-sided chest pain and SOB that began 1 hour aa5 ago. Pt also c/o pain to whole back that is chronic. Pt states "I just saw about 2 or 3 weeks ago and he did a stress test and everything was okay". 16:10 Transition of care: patient was not received from another setting of care. Onset of aa5 symptoms was September 02, 2019. Risk Assessment: Do you want to hurt yourself or someone else? Patient reports no desire to harm self or others. Initial Sepsis Screen: Does the patient meet any 2 criteria? No. Patient's initial sepsis screen is negative. Does the patient have a suspected source of infection? No. Patient's initial sepsis screen is negative. Care prior to arrival: None. 16:10 Acuity: KEVIN 2 aa5 16:10 Method Of Arrival: Wheelchair aa5 Historical: - Allergies: 16:11 NKA; aa5 - Home Meds: 16:31 finasteride 5 mg oral tab 1 tab once daily [Active]; tamsulosin 0.4 mg Oral cp24 1 cap aa5 [Active]; Glucovance 5-500 mg Oral tab 2 times per day [Active]; Valium 5 mg Oral tab [Active]; Crouse 10-325 mg Oral tab for Pain [Active]; - PMHx: 16:11 Diabetes - NIDDM; Hypertension; Myocardial infarction; aa5 - PSHx: 16:11 Heart stents; BACK Sx; LEFT LEG; Quadriple heart bypass; aa5 - Immunization history:: Flu vaccine status is unknown. - Social history:: Smoking status: Patient/guardian denies using tobacco. - Ebola Screening: : No symptoms or risks identified at this time. - Family history:: not pertinent. Screenin:27 Abuse screen: Denies threats or abuse. Denies injuries from another. Nutritional mg2 screening: No deficits noted. Tuberculosis screening: No symptoms or risk factors identified. Fall Risk IV access (20 points). Assessment: 17:15 General: Appears in no apparent distress. comfortable, Behavior is calm, cooperative. mg2 17:15 Pain: Complains of pain in chest and back Pain does not radiate. Pain currently is 5 mg2 out of 10 on a pain scale. Quality of pain is described as aching, sharp, Pain began gradually, 2 hours ago. Is intermittent. Neuro: Level of Consciousness is awake, alert, obeys commands, Oriented to person, place, time, situation. Cardiovascular: Capillary refill < 3 seconds Patient's skin is warm and dry. Respiratory: Reports shortness of breath Airway is patent Respiratory effort is even, unlabored, Respiratory pattern is regular, symmetrical. GI: No signs and/or symptoms were reported involving the gastrointestinal system. : No signs and/or symptoms were reported regarding the genitourinary system. EENT: No signs and/or symptoms were reported regarding the EENT system. Derm: Skin is intact, is healthy with good turgor, Skin is pink, warm \\T\\ dry. normal. Musculoskeletal: Circulation, motion, and sensation intact. Capillary refill < 3 seconds. Vital Signs: 16:12 BP 158 / 87; Pulse 71; Resp 16 S; Temp 98.5(O); Pulse Ox 96% on R/A; Weight 142.88 kg aa5 (R); Height 6 ft. 1 in. (185.42 cm) (R); Pain 7/10; 17:25 Pulse 63; Resp 18; Pulse Ox 100% on R/A; mg2 17:30 BP 147 / 88; mg2 16:12 Body Mass Index 41.56 (142.88 kg, 185.42 cm) aa5 ED Course: 16:10 Patient arrived in ED. bp 16:10 Everardo Ferraro, RN is Primary Nurse. mg2 16:10 Arm band placed on Patient placed in an exam room, on a stretcher. aa5 16:14 Triage completed. aa5 16:14 Rico Quintero MD is Attending Physician. [facility] 16:17 EKG done, by ED staff, reviewed by Rico Quintero MD. aa5 16:42 James Rg MD is Hospitalizing Provider. corina 17:15 Inserted saline lock: 20 gauge in right upper arm, using aseptic technique. Blood mg2 collected. 17:27 Patient has correct armband on for positive identification. residential monitor on. Pulse mg2 ox on. NIBP on. Door closed. 17:27 No provider procedures requiring assistance completed. mg2 17:27 Patient admitted, IV remains in place. mg2 Administered Medications: 16:51 Drug: NS 0.9% 1000 ml Route: IV; Rate: 75 ml/hr; Site: right upper arm; mg2 17:44 Follow up: Response: No adverse reaction; IV Status: Infusion continued upon admission; mg2 IV Intake: 70ml 17:10 Drug: Lovenox 1 mg/kg Route: Sub-Q; Site: right lower abdomen; mg2 17:44 Follow up: Response: No adverse reaction mg2 17:10 Drug: Lopressor 25 mg Route: PO; mg2 17:44 Follow up: Response: No adverse reaction mg2 17:10 Drug: morphine 4 mg Route: IVP; Site: right upper arm; mg2 17:43 Follow up: Response: No adverse reaction; RASS: Alert and Calm (0) mg2 17:10 Drug: Zofran 4 mg Route: IVP; Site: right upper arm; mg2 17:43 Follow up: Response: No adverse reaction mg2 17:10 Drug: Pepcid 20 mg Route: IVP; Site: right upper arm; mg2 17:43 Follow up: Response: No adverse reaction mg2 17:11 Drug: Aspirin 162 mg Route: PO; mg2 17:44 Follow up: Response: No adverse reaction mg2 Intake: 17:44 IV: 70ml; Total: 70ml. mg2 Outcome: 16:44 Decision to Hospitalize by Provider. corina 17:51 Admitted to Med/surg accompanied by tech, via wheelchair, room 211, with chart, Report mg2 called to TIARRA Maya 17:51 Condition: stable 17:51 Instructed on the need for admit, Demonstrated understanding of instructions. 18:07 Patient left the ED. aj1 Signatures: Lizett Barajas RN RN aj1 Rico Quintero MD MD cha Calderon, Audri, TIARRA RN aa5 Luis Boyd RN RN bp Everardo Ferraro RN RN mg2 Corrections: (The following items were deleted from the chart) 16:25 16:10 Presenting complaint: Patient states: right-sided chest pain and SOB that began 1 aa5 hour ago. Pt also c/o pain to whole back. Pt states "I just saw about 2 or 3 weeks ago and he did a stress test and everything was okay" aa5
[2019-09-02 16:56] LABS: ALT/SGPT 26 U/L (12-78); AST/SGOT 15 U/L (15-37); Albumin 3.8 g/dL (3.4-5.0); Alkaline Phosphatase 88 U/L (45-117); BUN Blood Urea Nitrogen 15 mg/dL (7-18); Bicarbonate 27 mmol/L (21-32); Bilirubin Direct 0.1 mg/dL (0-0.2); Bilirubin Total 0.4 mg/dL (0.2-1.0); Glucose Level 88 mg/dL (74-106); Lipase 103 U/L (73-393); Magnesium 2.2 mg/dL (1.8-2.4); NT PRO-BNP 207 pg/mL (<125); Potassium 3.8 mmol/L (3.5-5.1); Protein, Total 7.9 g/dL (6.4-8.2); Sodium Level 141 mmol/L (136-145); Troponin (Emerg Dept Use Only) < 0.02 ng/mL (0.0-0.045)
[2019-09-02] MEDS ORDERED: ONDANSETRON 4 MG/2 ML VIAL ONE (16:56)
[2019-09-02] MEDS ORDERED: MORPHINE 4 MG/ML SYR ONE (16:56)
[2019-09-02] MEDS ORDERED: ASPIRIN EC 81 MG TAB PO ONE (16:56)
[2019-09-02] MEDS ORDERED: FAMOTIDINE 20 MG/2 ML VIAL IV ONE (16:56)
[2019-09-02] MEDS ORDERED: ENOXAPARIN 80 MG/0.8 ML SQ ONE (16:56)
[2019-09-02] MEDS ORDERED: METOPROLOL TAR 25 MG TAB ONE (16:56)
[2019-09-02] MEDS ORDERED: ENOXAPARIN 60 MG/0.6 ML SQ ONE (16:57)
--- NOTE | 2019-09-02 17:39 | RAD REPORT ---
EXAM DESCRIPTION: RAD - Chest Single View - 09/02/2019 4:53 pm CLINICAL HISTORY: Right-sided chest pain, shortness of breath COMPARISON: January 2019 TECHNIQUE: AP portable chest image was obtained 1645 hours . FINDINGS: No focal lung parenchymal process. Interstitial pattern is similar to comparison. Sternoto my wires are in place. Heart and vasculature are normal. No measurable pleural effusion and no pneumo thorax. No acute bony abnormality seen. No acute aortic findings suspected. IMPRESSION: No acute cardiopulmonary process. No significant interval change.
[2019-09-02] MEDS ORDERED: ONDANSETRON 4 MG/2 ML VIAL IV PRN (18:20)
[2019-09-02] MEDS ORDERED: GLUCAGON 1 MG/VIAL IM PRN (18:20)
[2019-09-02] MEDS ORDERED: D50W 25 GM/50 ML SYRINGE IV PRN (18:20)
[2019-09-02] MEDS: METOPROLOL TAR 25 MG TAB PO SCH (18:20)
[2019-09-02] MEDS ORDERED: ACETAMINOPHEN 500 MG TAB PO PRN (18:20)
[2019-09-02] MEDS ORDERED: MORPHINE 4 MG/ML SYR IV PRN (18:20)
[2019-09-02 18:31] VITALS: BMI 41.5
[2019-09-02 19:19] LABS: Urine Appearance CLEAR; Urine Bilirubin NEGATIVE (NEG); Urine Blood NEGATIVE (NEG); Urine Color YELLOW; Urine Glucose NEGATIVE (NEG); Urine Protein NEGATIVE (NEG)
[2019-09-02 19:20] LABS: Urine Bacteria 20-50 /HPF (NONE SEEN); Urine Culture Reflex Order REFLEXED; Urine RBC <5 /HPF (NONE SEEN); Urine Urobilinogen 0.2 mg/dL (0.2-1.0)
[2019-09-02] MEDS ORDERED: HYDROCODONE/APAP 10/325 TAB PO PRN (19:32)
--- NOTE | 2019-09-02 20:14 | P.HP ---
Certification for Inpatient Patient admitted to: Observation With expected LOS: <2 Midnights Practitioner: I am a practitioner with admitting privileges, knowledge of patient current condition, hospital course, and medical plan of care. Services: Services provided to patient in accordance with Admission requirements found in Title 42 Section 412.3 of the Code of Federal Regulations Patient History Date of Service: 09/02/19 Reason for admission: CHEST PAIN History of Present Illness: MR. SPENCE IS A PATIENT WITH CAD WHO HAD STRESS TEST 3 MONTHS AGO THAT WAS NEGATIVE PER HIM WITH DR. MARTE. HE COMES WITH PAIN ON STERNUM AND R SIDE THAT IS NOW GONE. HE ALSO HAS CHRONIC CHOLECYSTITIS WITH RECURRENT EXACERBATION BUT WANTS NOTHING DONE FOR IT. HE KNOWS THAT ONE TIME HE WILL GET SEPTIC FROM IT AND STILL DENIES CARE. HIS IS AWARE. HIS SAID IN COMORAN AND HE INTERPRETED THAT FOR LAST 25 DAYS HE AT TIMES SAYS THIS IS HIS LAST DAY BUT HE IS NOT GONE YET. THEY ALL STARTED TO LAUGH. HE HAS SEVERE BACK ISSUES AND GOES TO PAIN [facility]CTORS MONTHLY TO GET NARCOTICS. HE HAS CHANGED MANY PAIN DOCTORS. HE HAS L HAND NUMBNESS AND WANTS TESTING DONE. Allergies No Known Allergies Allergy (Verified 01/17/19 20:21) Home Medications: Hydrocodone 10/APAP 325 [St[place] 10/325*] 1 tab PO TID 09/02/19 - Past Medical/Surgical History Has patient received pneumonia vaccine in the past: No Diabetic: Yes -: CAD -: NIDDM -: obstructive sleep apnea -: Chronic back pain -: Hyperlipedemia -: Heart cath/with stents x3 -: laminectomy -: coronary artery bypass graft - Social History Smoking Status: Never smoker Alcohol use: No CD- Drugs: No Caffeine use: Yes Place of Residence: Home Review of Systems 10-point ROS is otherwise unremarkable Physical Examination - Vital Signs Temperature: 97 F Blood Pressure: 135/65 Pulse: 60 Respirations: 18 Pulse Ox (%): 95 - Physical Exam General: Obese HEENT: Atraumatic, PERRLA, Mucous membr. moist/pink, EOMI, Sclerae nonicteric Neck: Supple, 2+ carotid pulse no bruit, No LAD, Without JVD or thyroid abnormality Respiratory: Clear to auscultation bilaterally, Normal air movement Cardiovascular: Regular rate/rhythm, Normal S1 S2 Gastrointestinal: Normal bowel sounds, No tenderness Musculoskeletal: No tenderness Integumentary: No rashes Neurological: Abnormal sensation (L HAND SENSORY LOSS FINGERS.) Lymphatics: No axilla or inguinal lymphadenopathy - Studies Laboratory Data (last 24 hrs) 09/02/19 16:30: PT 12.2, INR 1.04 09/02/19 16:30: WBC 6.1, Hgb 16.1, Hct 48.0, Plt Count 158 09/02/19 16:30: Sodium 141, Potassium 3.8, BUN 15, Creatinine 1.04, Glucose 88, Magnesium 2.2, Total Bilirubin 0.4, AST 15, ALT 26, Alkaline Phosphatase 88, Lipase 103 09/02/19 16:24: Lipase Cancelled Assessment and Plan - Problems (Diagnosis) (1) Chest pain Onset Date: 11/28/17 Current Visit: No Status: Acute Plan: ATYPICAL CHEST PAIN. HAS MANY RISK FACTORS. DR. MARTE CONSULTED. PAIN IS ATYPICAL AND CAN BE FROM CHOLECYSTITS HE HAS. Qualifiers: Chest pain type: unspecified Qualified Code(s): R07.9 - Chest pain, unspecified (2) Choledocholithiasis with acute cholecystitis Current Visit: No Status: Acute Plan: ONCE AGAIN HE DOES NOT WANT ANYTHING DONE. TODAY HE IS NOT TENDER IN ABDOMEN. - Advance Directives Does patient have a Living Will: No Does patient have a Durable POA for Healthcare: No
[2019-09-02] MEDS: INSULIN -REGULAR HUMAN 50 UNIT/0.5 ML ML SQ SCH (21:00)
[2019-09-02] MEDS: HYDROCODONE/APAP 10/325 TAB PO SCH (21:00)
[2019-09-02 22:25] VITALS: O2SAT 92
[2019-09-03] MEDS: HYDROCODONE/APAP 10/325 TAB PO SCH ×2 (04:04→08:50)
[2019-09-03 06:20] LABS: Absolute Lymphocytes (CBC) 2.1 K/uL (0.7-4.9); Basophils % 0.6 % (0-1.3); Hematocrit 43.4 % (39.6-49.0); Lymphocytes % 34.2 % (15.3-44.8); MPV 10.1 fL (7.6-11.3)
[2019-09-03] MEDS: METOPROLOL TAR 25 MG TAB PO SCH (06:21)
[2019-09-03 06:37] LABS: Potassium 4.4 mmol/L (3.5-5.1)
--- NOTE | 2019-09-03 07:07 | EKG ---
Test Date: 2019-09-02 Test Time: 16:16:08 Editorial Writer: OKSANA MEASUREMENT RESULTS: Intervals: Rate: 66 WY: 148 QRSD: 118 QT: 458 QTc: 480 [place]: P: 54 WY: 148 QRS: -64 T: -57 INTERPRETIVE STATEMENTS: Normal sinus rhythm Left anterior fascicular block T wave abnormality, consider inferior ischemia T wave abnormality, consider anterolateral ischemia Prolonged QT Abnormal ECG Compared to ECG 01/17/2019 15:15:11 Left anterior fascicular block now present Prolonged QT interval now present Sinus bradycardia no longer present Right bundle-branch block no longer present T-wave abnormality still present Possible ischemia still present Electronically Signed On 09-03-19 07:07:12 CLEARING SUPERVISOR by Warner Sauer
[2019-09-03] MEDS: INSULIN -REGULAR HUMAN 50 UNIT/0.5 ML ML SQ SCH ×2 (07:30→11:25)
[2019-09-03] MEDS ORDERED: ENOXAPARIN 100 MG/ML SYR SQ SCH (09:00)
[2019-09-03] MEDS ORDERED: ASPIRIN EC 81 MG TAB PO SCH (09:00)
[2019-09-03] MEDS ORDERED: FAMOTIDINE 20 MG/2 ML VIAL IV SCH (09:00)
[2019-09-03] MEDS ORDERED: NITROGLYCERIN 0.4 MG/TAB SL PRN (09:57)
--- NOTE | 2019-09-03 11:47 | CON ---
Mr. Beltrán came to the hospital with an episode of chest pain. Since here, he has had normal enzyme s and EKGs are unchanged. Mr. Beltrán has coronary heart disease that is severe. Bypass surgery was 2 years ago. Two weeks ago or more like a month ago, his nuclear stress test and echocardiogram cole wed evidence of an old posterolateral infarction but no ischemia. We elected for medical therapy. Radha nazario prescribed metoprolol, p.r.n. 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 He has not been using any of those. He was feeling well until yesterday afternoon. He had chest pa in and then again at 1 o'clock in the morning. The pain is point tenderness, left pectoral region. Does not really sound like angina. Physical Examination: General: He is 6 feet 1 inch, 315 pounds. Alert, oriented, pleasant, not in distress. Lungs: Clear. Heart: Normal. Abdomen: Soft. Extremities: Mild edema. Distal pulses diminished. The patient uses no tobacco now. He has used tobacco heavily in the past. Impression: The patient's main problem was poor compliance with medications. This has been a proble m in trying to treat Mr. Beltrán for all of his doctors for several years, so if we give him a beta-b locker Lasix and a statin drug in addition to what he is on and nitroglycerin to use as needed, I think he could function very well. I do not think he needs another cardiac cath. SHERINE Voice ID: [id number] Report ID: [id number]
--- NOTE | 2019-09-03 11:58 | RAD REPORT ---
EXAM DESCRIPTION: MRI - C Spine Wo Cont- 09/03/2019 11:36 am CLINICAL HISTORY: numbness/tingling of left hand COMPARISON: MRICERVICAL SPINE W O CONTR dated 02/29/2012 FINDINGS: Cervical vertebral bodies are normal in height and alignment. No suspicious marrow edema or marrow replacing process. No fracture or traumatic subluxation. The craniocervical junction is normal. C2-3 level: Small posterior osteophyte/ disc complex is present. No significant canal or foraminal st enosis. C3-4 level: Moderate posterior osteophyte/ disc complex is present, attenuating the anterior subarach noid space and contacting the anterior cord. Left-sided uncovertebral spurring is noted narrowing the left exit foramen. Central canal is narrowed to 8 mm. C4-5 level: Large central disc herniation is present attenuating the anterior subarachnoid space and contacting and flattening the anterior cord. Central canal is narrowed to 7-8 mm. Left-sided uncovert ebral spurring is present narrowing the left exit foramen significantly. Thickening of the posterior longitudinal ligament is also present at this level. C5-6 level: Large posterior osteophyte/ disc complex is present attenuating the anterior subarachnoid space and contacting and deforming the cord. There is significant thickening of the posterior longit udinal ligament seen along with left-sided uncovertebral and facet hypertrophy identified. Moderate c entral canal stenosis and left-sided exit foraminal stenosis suspected. C6-7 level: Small posterior osteophyte/disc complex is present with mild bilateral uncovertebral spur ring. Mild narrowing both exit foramina suspected. Posterior longitudinal ligament thickening is pres ent both inferior and superior to this level. C7-T1 level: No significant findings. Cervical cord is normal in size and signal. IMPRESSION: Moderately severe spondylosis is present involving the lower cervical levels particularl y along the left at C4-5, C5-6.
[2019-09-03 13:43] VITALS: BP 161/74; TEMP 97.3
[2019-09-03] MEDS ORDERED: ATORVASTATIN 40 MG TAB PO SCH (21:00)
[2019-09-04] MEDS ORDERED: METOPROLOL XL 50 MG TAB PO SCH (06:00)
== END 2019-09-03 13:26 | disposition home or self-care (01) | DRG 313 ==
LOC: ER 16:03 → ERHOLD 16:46 → 2ND 17:55
PROVIDERS: ADMIT Internal Medicine; ATTEND Internal Medicine
DX: R07.89 Other chest pain (principal); K80.46 Calculus of bile duct with acute and chronic cholecystitis without obstruction; I25.10 Atherosclerotic heart disease of native coronary artery without angina pectoris; E11.9 Type 2 diabetes mellitus without complications; G47.33 Obstructive sleep apnea (adult) (pediatric); E78.5 Hyperlipidemia, unspecified
CPT/HCPCS: 36415; 71045; 72141; 80048; 80076; 81001; 82947; 83690; 83735; 83880; 84484; 85025; 85610; 87077; 87086; 87088; 87186; 93005; 96361; 96372; 96374; 96375; 99285; J1650; J2405; J7040

== ENCOUNTER 2020-02-25 02:32 | Observation (INO) | payer OTHER ==
--- OUTSIDE RECORDS SUMMARY | 2020-02-25 02:34 | XMS REPORT | Clinical Summary ---
:1955 Author Organization [facility] Address [address] [place] [address] Care Team Providers Name Role Phone Iban Primary Care Provider Allergies No Known Allergies Medications Medication Sig Dispensed Refills Start Date End Date Status HYDROcodone-acetamino Take 1 tablet by 0 Active phen (NORCO 10-325) mouth every 6 10-325 mg per tablet (six) hours as needed for Pain. diazePAM (VALIUM) 10 Take 10 mg by 0 Active MG tablet mouth every 6 (six) hours as needed for Anxiety. tamsulosin (FLOMAX) Take 1 capsule 30 capsule 1 12/06/2017 Active 0.4 mg Cp24 24 hr (0.4 mg total) by capsule mouth daily. Active Problems Problem Noted Date CAD (coronary artery disease) 11/29/2017 Coronary artery disease 11/29/2017 S/P CABG x 4 11/29/2017 Chronic pain 11/29/2017 Acute blood loss anemia 11/29/2017 Thrombocytopenia 11/29/2017 Acute postoperative pain 11/29/2017 Hyperglycemia 11/29/2017 Borderline diabetes 11/29/2017 Acute respiratory insufficiency, postoperative 018 Social History Tobacco Use Types Packs/Day Years [...] Not on file Implants Implanted Type Area Wooden Fence Erector Device Shelf Model / Identifier Expiration Serial / Date Lot Sternal Zipfix Ndl Strl [id number] - [id number] Cardiovascula r N/A: SYNTHES:SYNTHES 07/16/2022 [id number] / Implanted: Qty: 1 on 11/29/2017 by Chase Wong MD [facility] / [id number] Results Not on fileafter 02/24/2019 Insurance Payer Benefit Plan / Subscriber ID Type Phone Address Group [employer] - MEDICARE [employer] MEDICARE HMO xxxxxxxx [address] [place] [address] Advance Directives For more information, please contact:[address] [phone] Code Status Date Activated Date Inactivated Comments Full Code 11/28/2017 3:05 PM 12/05/2017 7:49 PM This code status was determined by: Patient Full Code 11/28/2017 2:31 PM 11/28/2017 3:05 PM This code status was determined by: Patient
--- OUTSIDE RECORDS SUMMARY | 2020-02-25 02:36 | XMS REPORT ---
:1955 Author Organization [facility] Address [address] [place] [address] [address]. [address] [place] [address] Care Team Providers Name Role Phone ANGELDI [...] (BEAKER) (test 255 mg/dL 70-110 TESTED AT [facility] [address] [place] [address] code = 1538) [facility] [address] POCT-GLUCOSE [id number] 08:35:00 Test Item Value Reference Range Comments POC-GLUCOSE METER (BEAKER) 127 mg/dL 70-110 TESTE D AT [facility] [address] [facility] (test code = 1538) [facility] [address] POCT-GLUCOSE [id number] 00:25:00 Test Item Value Reference Range Comments POC-GLUCOSE METER (BEAKER) 177 mg/dL 70-110 TESTE D AT [facility] [address] [facility] (test code = 1538) [place] [address] 030 HEMOGLOBIN [id number] 14:20:00 Test Item Value Reference Range Comments HEMOGLOBIN A1C (BEAKER) (test code = 368) 6.9 % 4.3-6. 1 BASIC METABOLIC [id number] 07:34:00 Test Item Value Reference Range Comments SODIUM (BEAKER) (test 139 meq/L 136-145 code = 381) POTASSIUM (BEAKER) (test 3.9 meq/L 3.5-5.1 code = 379) CHLORIDE (BEAKER) (test 106 meq/L 98-107 code = 382) CO2 (BEAKER) (test code = 23 meq/L 22-29 355) BLOOD UREA NITROGEN 16 mg/dL 7-21 (BEAKER) (test code = 354) CREATININE (BEAKER) (test 0.77 mg/dL 0.57-1.25 code = 358) GLUCOSE RANDOM (BEAKER) 126 mg/dL 70-105 (test code = 652) CALCIUM (BEAKER) (test 8.4 mg/dL 8.4-10.2 code = 697) EGFR (BEAKER) (test code mL/min/1.73 sq m INSUF FICIENT CLINICAL DATA = 1092) TO CALCULATE EST IMATED GFR. CBC W/PLT COUNT & AUTO [id number] 06:38:00 Test Item Value Reference Range Comments WHITE BLOOD CELL COUNT (BEAKER) (test code = 5.9 K/ L 3.5 -10.5 775) RED BLOOD CELL COUNT (BEAKER) (test code = 761) 2.75 M/ L 4.63-6.08 HEMOGLOBIN (BEAKER) (test code = 410) 7.6 GM/DL 13.7-17.5 HEMATOCRIT (BEAKER) (test code = 411) 25.2 % 40.1-51.0 MEAN CORPUSCULAR VOLUME (BEAKER) (test code = 91.6 fL 79 .0-92.2 753) MEAN CORPUSCULAR HEMOGLOBIN (BEAKER) (test code 27.6 pg 25.7-32.2 = 751) MEAN CORPUSCULAR HEMOGLOBIN CONC (BEAKER) (test 30.2 GM/DL 32.3-36.5 code = 752) RED CELL DISTRIBUTION WIDTH (BEAKER) (test code 14.7 % 11.6-14.4 = 412) PLATELET COUNT (BEAKER) (test code = 756) 209 K/CU MM 150-45 0 MEAN PLATELET VOLUME (BEAKER) (test code = 754) 11.2 fL 9.4-12.4 NUCLEATED RED BLOOD CELLS (BEAKER) (test code = 0 /100 WBC 0-0 413) NEUTROPHILS RELATIVE PERCENT (BEAKER) (test code 64 % = 429) LYMPHOCYTES RELATIVE PERCENT (BEAKER) (test code 25 % = 430) MONOCYTES RELATIVE PERCENT (BEAKER) (test code = 6 % 431) EOSINOPHILS RELATIVE PERCENT (BEAKER) (test code 4 % = 432) BASOPHILS RELATIVE PERCENT (BEAKER) (test code = 0 % 437) NEUTROPHILS ABSOLUTE COUNT (BEAKER) (test code = 3.76 K/ L 1.78-5.38 670) LYMPHOCYTES ABSOLUTE COUNT (BEAKER) (test code = 1.49 K/ L 1.32-3.57 414) MONOCYTES ABSOLUTE COUNT (BEAKER) (test code = 0.35 K/ L 0 .30-0.82 415) EOSINOPHILS ABSOLUTE COUNT (BEAKER) (test code = 0.21 K/ L 0.04-0.54 416) BASOPHILS ABSOLUTE COUNT (BEAKER) (test code = 0.01 K/ L 0 .01-0.08 417) IMMATURE GRANULOCYTES-RELATIVE PERCENT (BEAKER) 1 % 0-1 (test code = 2801) POCT-GLUCOSE [id number] 21:40:00 Test Item Value Reference Range Comments POC-GLUCOSE METER (BEAKER) 171 mg/dL 70-110 TESTE D AT [address] (test code = 1538) [place] [address]30 POCT-GLUCOSE [id number] 18:53:00 Test Item Value Reference Range Comments POC-GLUCOSE METER (BEAKER) 136 mg/dL 70-110 TESTE D AT [address] (test code = 1538) [place] [address] BASIC METABOLIC [id number] 05:58:00 Test Item Value Reference Range Comments SODIUM (BEAKER) (test 139 meq/L 136-145 code = 381) POTASSIUM (BEAKER) (test 4.3 meq/L 3.5-5.1 code = 379) CHLORIDE (BEAKER) (test 106 meq/L 98-107 code = 382) CO2 (BEAKER) (test code = 25 meq/L 22-29 355) BLOOD UREA NITROGEN 19 mg/dL 7-21 (BEAKER) (test code = 354) CREATININE (BEAKER) (test 0.74 mg/dL 0.57-1.25 code = 358) GLUCOSE RANDOM (BEAKER) 132 mg/dL 70-105 (test code = 652) CALCIUM (BEAKER) (test 8.3 mg/dL 8.4-10.2 code = 697) EGFR (BEAKER) (test code mL/min/1.73 sq m INSUF FICIENT CLINICAL DATA = 1092) TO CALCULATE EST IMATED GFR. [id number] 05:57:00 Test Item Value Reference Range Comments MAGNESIUM (BEAKER) (test code = 627) 1.9 mg/dL 1.6-2.6 CBC W/PLT COUNT & AUTO [id number] 05:11:00 Test Item Value Reference Range Comments WHITE BLOOD CELL COUNT (BEAKER) (test code = 7.4 K/ L 3.5 -10.5 775) RED BLOOD CELL COUNT (BEAKER) (test code = 761) 2.76 M/ L 4.63-6.08 HEMOGLOBIN (BEAKER) (test code = 410) 7.7 GM/DL 13.7-17.5 HEMATOCRIT (BEAKER) (test code = 411) 24.4 % 40.1-51.0 MEAN CORPUSCULAR VOLUME (BEAKER) (test code = 88.4 fL 79 .0-92.2 753) MEAN CORPUSCULAR HEMOGLOBIN (BEAKER) (test code 27.9 pg 25.7-32.2 = 751) MEAN CORPUSCULAR HEMOGLOBIN CONC (BEAKER) (test 31.6 GM/DL 32.3-36.5 code = 752) RED CELL DISTRIBUTION WIDTH (BEAKER) (test code 14.3 % 11.6-14.4 = 412) PLATELET COUNT (BEAKER) (test code = 756) 162 K/CU MM 150-45 0 MEAN PLATELET VOLUME (BEAKER) (test code = 754) 11.4 fL 9.4-12.4 NUCLEATED RED BLOOD CELLS (BEAKER) (test code = 0 /100 WBC 0-0 413) NEUTROPHILS RELATIVE PERCENT (BEAKER) (test code 68 % = 429) LYMPHOCYTES RELATIVE PERCENT (BEAKER) (test code 22 % = 430) MONOCYTES RELATIVE PERCENT (BEAKER) (test code = 7 % 431) EOSINOPHILS RELATIVE PERCENT (BEAKER) (test code 3 % = 432) BASOPHILS RELATIVE PERCENT (BEAKER) (test code = 0 % 437) NEUTROPHILS ABSOLUTE COUNT (BEAKER) (test code = 5.05 K/ L 1.78-5.38 670) LYMPHOCYTES ABSOLUTE COUNT (BEAKER) (test code = 1.62 K/ L 1.32-3.57 414) MONOCYTES ABSOLUTE COUNT (BEAKER) (test code = 0.49 K/ L 0 .30-0.82 415) EOSINOPHILS ABSOLUTE COUNT (BEAKER) (test code = 0.22 K/ L 0.04-0.54 416) BASOPHILS ABSOLUTE COUNT (BEAKER) (test code = 0.01 K/ L 0 .01-0.08 417) IMMATURE GRANULOCYTES-RELATIVE PERCENT (BEAKER) 0 % 0-1 (test code = 2801) POCT-GLUCOSE [id number] 21:45:00 Test Item Value Reference Range Comments POC-GLUCOSE METER (BEAKER) 177 mg/dL 70-110 TESTE D AT [address] (test code = 1538) [place] [address] POCT-GLUCOSE [id number] 18:49:00 Test Item Value Reference Range Comments POC-GLUCOSE METER (BEAKER) 216 mg/dL 70-110 TESTE D AT [address] (test code = 1538) [place] [address] POCT-GLUCOSE [id number] 09:56:00 Test Item Value Reference Range Comments POC-GLUCOSE METER (BEAKER) 202 mg/dL 70-110 TESTE D AT [address] (test code = 1538) [place] [address] [id number] 09:37:00 Test Item Value Reference Range Comments PROTIME (BEAKER) (test code = 759) 14.5 seconds 11.7-14.7 INR (BEAKER) (test code = 370) 1.1 <=5.9 PARTIAL THROMBOPLASTIN TIME (BEAKER) (test code 32.4 seconds 22.5-36.0 = 760) RECOMMENDED COUMADIN/WARFARIN INR THERAPY RANGESSTANDARD DOSE: 2.0 - 3.0 Includes: PROPHYLAXIS forvenous thrombosis, systemic embolization; TREATMENT for venous thrombosis and/or pulmonary embolus.HIGH RISK: Target INR is 2.5-3.5 for patients with mechanical heart valves.BASIC METABOLIC [id number] 09:24:00 Test Item Value Reference Range Comments SODIUM (BEAKER) (test 138 meq/L 136-145 code = 381) POTASSIUM (BEAKER) (test 3.7 meq/L 3.5-5.1 code = 379) CHLORIDE (BEAKER) (test 103 meq/L 98-107 code = 382) CO2 (BEAKER) (test code = 27 meq/L 22-29 355) BLOOD UREA NITROGEN 17 mg/dL 7-21 (BEAKER) (test code = 354) CREATININE (BEAKER) (test 0.80 mg/dL 0.57-1.25 code = 358) GLUCOSE RANDOM (BEAKER) 162 mg/dL 70-105 (test code = 652) CALCIUM (BEAKER) (test 8.7 mg/dL 8.4-10.2 code = 697) EGFR (BEAKER) (test code mL/min/1.73 sq m INSUF FICIENT CLINICAL DATA = 1092) TO CALCULATE EST IMATED GFR. [id number] 09:16:00 Test Item Value Reference Range Comments MAGNESIUM (BEAKER) (test code = 627) 1.8 mg/dL 1.6-2.6 CBC W/PLT COUNT & AUTO [id number] 08:53:00 Test Item Value Reference Range Comments WHITE BLOOD CELL COUNT (BEAKER) (test code = 8.5 K/ L 3.5 -10.5 775) RED BLOOD CELL COUNT (BEAKER) (test code = 761) 2.85 M/ L 4.63-6.08 HEMOGLOBIN (BEAKER) (test code = 410) 8.0 GM/DL 13.7-17.5 HEMATOCRIT (BEAKER) (test code = 411) 25.2 % 40.1-51.0 MEAN CORPUSCULAR VOLUME (BEAKER) (test code = 88.4 fL 79 .0-92.2 753) MEAN CORPUSCULAR HEMOGLOBIN (BEAKER) (test code 28.1 pg 25.7-32.2 = 751) MEAN CORPUSCULAR HEMOGLOBIN CONC (BEAKER) (test 31.7 GM/DL 32.3-36.5 code = 752) RED CELL DISTRIBUTION WIDTH (BEAKER) (test code 14.1 % 11.6-14.4 = 412) PLATELET COUNT (BEAKER) (test code = 756) 140 K/CU MM 150-45 0 MEAN PLATELET VOLUME (BEAKER) (test code = 754) 11.5 fL 9.4-12.4 NUCLEATED RED BLOOD CELLS (BEAKER) (test code = 0 /100 WBC 0-0 413) NEUTROPHILS RELATIVE PERCENT (BEAKER) (test code 67 % = 429) LYMPHOCYTES RELATIVE PERCENT (BEAKER) (test code 24 % = 430) MONOCYTES RELATIVE PERCENT (BEAKER) (test code = 7 % 431) EOSINOPHILS RELATIVE PERCENT (BEAKER) (test code 2 % = 432) BASOPHILS RELATIVE PERCENT (BEAKER) (test code = 0 % 437) NEUTROPHILS ABSOLUTE COUNT (BEAKER) (test code = 5.67 K/ L 1.78-5.38 670) LYMPHOCYTES ABSOLUTE COUNT (BEAKER) (test code = 2.08 K/ L 1.32-3.57 414) MONOCYTES ABSOLUTE COUNT (BEAKER) (test code = 0.58 K/ L 0 .30-0.82 415) EOSINOPHILS ABSOLUTE COUNT (BEAKER) (test code = 0.14 K/ L 0.04-0.54 416) BASOPHILS ABSOLUTE COUNT (BEAKER) (test code = 0.01 K/ L 0 .01-0.08 417) IMMATURE GRANULOCYTES-RELATIVE PERCENT (BEAKER) 0 % 0-1 (test code = 2801) POCT-GLUCOSE [id number] 21:32:00 Test Item Value Reference Range Comments POC-GLUCOSE METER (BEAKER) 200 mg/dL 70-110 TESTE D AT [address] (test code = 1538) [place] [address] POCT-GLUCOSE [id number] 17:42:00 Test Item Value Reference Range Comments POC-GLUCOSE METER (BEAKER) 191 mg/dL 70-110 TESTE D AT [address] (test code = 1538) [place] [address]30 HEMOGLOBIN AND [id number] 15:51:00 Test Item Value Reference Range Comments HEMOGLOBIN (BEAKER) (test code = 410) 7.4 GM/DL 13.7-17.5 HEMATOCRIT (BEAKER) (test code = 411) 23.9 % 40.1-51.0 POCT-GLUCOSE [id number] 13:02:00 Test Item Value Reference Range Comments POC-GLUCOSE METER (BEAKER) 190 mg/dL 70-110 TESTE D AT [address] (test code = 1538) [place] [address] POCT-GLUCOSE [id number] 08:10:00 Test Item Value Reference Range Comments POC-GLUCOSE METER (BEAKER) 176 mg/dL 70-110 TESTE D AT [address] (test code = 1538) [place] [address] RAD, CHEST, 1 VIEW, NON [id number] 07:47:00Reason for exam:->pl effusionShould this be performed at the bedside?->YesFINAL REPORT Chest one view compared to November 30 Discussion: Mild pulmonary congestion and probable left lower lung atelectasis. I could not exclude small left effusion. No pneumothorax. IMPRESSIONS: Similar cardiopulmonary appearance. Signed: Atul Mcdonoughepclementine Verified Date/Time: 12/01/2017 07:47:00 Reading Location: [facility] Reading Room BASIC METABOLIC [id number] 05:25:00 Test Item Value Reference Range Comments SODIUM (BEAKER) (test 138 meq/L 136-145 code = 381) POTASSIUM (BEAKER) (test 3.9 meq/L 3.5-5.1 code = 379) CHLORIDE (BEAKER) (test 106 meq/L 98-107 code = 382) CO2 (BEAKER) (test code = 26 meq/L 22-29 355) BLOOD UREA NITROGEN 13 mg/dL 7-21 (BEAKER) (test code = 354) CREATININE (BEAKER) (test 0.75 mg/dL 0.57-1.25 code = 358) GLUCOSE RANDOM (BEAKER) 157 mg/dL 70-105 (test code = 652) CALCIUM (BEAKER) (test 8.2 mg/dL 8.4-10.2 code = 697) EGFR (BEAKER) (test code mL/min/1.73 sq m INSUF FICIENT CLINICAL DATA = 1092) TO CALCULATE EST IMATED GFR. [id number] 05:18:00 Test Item Value Reference Range Comments MAGNESIUM (BEAKER) (test code = 627) 1.8 mg/dL 1.6-2.6 CBC W/PLT COUNT & AUTO [id number] 04:59:00 Test Item Value Reference Range Comments WHITE BLOOD CELL COUNT (BEAKER) (test code = 7.8 K/ L 3.5 -10.5 775) RED BLOOD CELL COUNT (BEAKER) (test code = 761) 2.55 M/ L 4.63-6.08 HEMOGLOBIN (BEAKER) (test code = 410) 7.1 GM/DL 13.7-17.5 HEMATOCRIT (BEAKER) (test code = 411) 22.5 % 40.1-51.0 MEAN CORPUSCULAR VOLUME (BEAKER) (test code = 88.2 fL 79 .0-92.2 753) MEAN CORPUSCULAR HEMOGLOBIN (BEAKER) (test code 27.8 pg 25.7-32.2 = 751) MEAN CORPUSCULAR HEMOGLOBIN CONC (BEAKER) (test 31.6 GM/DL 32.3-36.5 code = 752) RED CELL DISTRIBUTION WIDTH (BEAKER) (test code 14.2 % 11.6-14.4 = 412) PLATELET COUNT (BEAKER) (test code = 756) 113 K/CU MM 150-45 0 MEAN PLATELET VOLUME (BEAKER) (test code = 754) 11.9 fL 9.4-12.4 NUCLEATED RED BLOOD CELLS (BEAKER) (test code = 0 /100 WBC 0-0 413) NEUTROPHILS RELATIVE PERCENT (BEAKER) (test code 72 % = 429) LYMPHOCYTES RELATIVE PERCENT (BEAKER) (test code 18 % = 430) MONOCYTES RELATIVE PERCENT (BEAKER) (test code = 9 % 431) EOSINOPHILS RELATIVE PERCENT (BEAKER) (test code 1 % = 432) BASOPHILS RELATIVE PERCENT (BEAKER) (test code = 0 % 437) NEUTROPHILS ABSOLUTE COUNT (BEAKER) (test code = 5.64 K/ L 1.78-5.38 670) LYMPHOCYTES ABSOLUTE COUNT (BEAKER) (test code = 1.36 K/ L 1.32-3.57 414) MONOCYTES ABSOLUTE COUNT (BEAKER) (test code = 0.70 K/ L 0 .30-0.82 415) EOSINOPHILS ABSOLUTE COUNT (BEAKER) (test code = 0.05 K/ L 0.04-0.54 416) BASOPHILS ABSOLUTE COUNT (BEAKER) (test code = 0.01 K/ L 0 .01-0.08 417) IMMATURE GRANULOCYTES-RELATIVE PERCENT (BEAKER) 0 % 0-1 (test code = 2801) POCT-GLUCOSE [id number] 22:11:00 Test Item Value Reference Range Comments POC-GLUCOSE METER (BEAKER) 190 mg/dL 70-110 TESTE D AT [facility] [address] [facility] (test code = 1538) [place] [address] POCT-GLUCOSE [id number] 16:58:00 Test Item Value Reference Range Comments POC-GLUCOSE METER (BEAKER) 193 mg/dL 70-110 TESTE D AT [address] (test code = 1538) [place] [address] CBC (HEMOGRAM ONLY)[id number] 13:05:00 Test Item Value Reference Range Comments WHITE BLOOD CELL COUNT (BEAKER) (test code = 9.1 K/ L 3.5 -10.5 775) RED BLOOD CELL COUNT (BEAKER) (test code = 761) 3.01 M/ L 4.63-6.08 HEMOGLOBIN (BEAKER) (test code = 410) 8.3 GM/DL 13.7-17.5 HEMATOCRIT (BEAKER) (test code = 411) 26.5 % 40.1-51.0 MEAN CORPUSCULAR VOLUME (BEAKER) (test code = 88.0 fL 79 .0-92.2 753) MEAN CORPUSCULAR HEMOGLOBIN (BEAKER) (test code 27.6 pg 25.7-32.2 = 751) MEAN CORPUSCULAR HEMOGLOBIN CONC (BEAKER) (test 31.3 GM/DL 32.3-36.5 code = 752) RED CELL DISTRIBUTION WIDTH (BEAKER) (test code 14.1 % 11.6-14.4 = 412) PLATELET COUNT (BEAKER) (test code = 756) 128 K/CU MM 150-45 0 MEAN PLATELET VOLUME (BEAKER) (test code = 754) 11.8 fL 9.4-12.4 NUCLEATED RED BLOOD CELLS (BEAKER) (test code = 0 /100 WBC 0-0 413) POCT-GLUCOSE [id number] 12:06:00 Test Item Value Reference Range Comments POC-GLUCOSE METER (BEAKER) 142 mg/dL 70-110 TESTE D AT [facility] [address] [facility] (test code = 1538) [place] [address]30 POCT-GLUCOSE [id number] 09:23:00 Test Item Value Reference Range Comments POC-GLUCOSE METER (BEAKER) 108 mg/dL 70-110 TESTE D AT [address] (test code = 1538) [place] [address] [id number] 05:44:00 Test Item Value Reference Range Comments ACTIVATED CLOTTING TIME 103 sec TESTED A T [facility] [address] (BEAKER) (test code = 441) [place] [address] [id number] 05:44:00 Test Item Value Reference Range Comments ACTIVATED CLOTTING TIME 439 sec TESTED A T [facility] [address] (BEAKER) (test code = 441) [place] [address] [id number] 05:44:00 Test Item Value Reference Range Comments ACTIVATED CLOTTING TIME 604 sec TESTED A T [facility] [address] (BEAKER) (test code = 441) [place] [address] [id number] 05:44:00 Test Item Value Reference Range Comments ACTIVATED CLOTTING TIME 444 sec TESTED A T [facility] [address] (BEAKER) (test code = 441) [place] [address] POCT-GLUCOSE [id number] 04:45:00 Test Item Value Reference Range Comments POC-GLUCOSE METER (BEAKER) 122 mg/dL 70-110 TESTE D AT [facility] [address] (test code = 1538) [facility] [address] RAD, CHEST, 1 VIEW, NON [id number] 04:40:00while patient is intubated or has chest tubes.Reason for exam:->intubated; chest tubeShould this be performed at the bedside?->YesFINAL REPORT RAD, CHEST, 1 VIEW, NON DEPT INDICATION: intubated; chest tube COMPARISON: Prior day's exam FINDINGS: Portable frontal view of the chest. IMPRESSION: Support Lines: Interval extubation and removal of enteric tube. Remaining support hardware is stable. Lungs and pleura: Underinflated lungs resulting in central vascular crowding and mild interstitial prominence. Small left effusion. No pneumothorax.Heart and mediastinum: Stable contours. Stable surgical changes.Ad ditional findings: None. Signed: JR Scanlon Robert MDReport Verified Date/Time: 11/30/2017 04:40:05 Reading Location: [address] Reading Room CBC W/PLT COUNT & AUTO [id number] 03:49:00 Test Item Value Reference Range Comments WHITE BLOOD CELL COUNT (BEAKER) (test code = 7.6 K/ L 3.5 -10.5 775) RED BLOOD CELL COUNT (BEAKER) (test code = 761) 3.09 M/ L 4.63-6.08 HEMOGLOBIN (BEAKER) (test code = 410) 8.5 GM/DL 13.7-17.5 HEMATOCRIT (BEAKER) (test code = 411) 27.4 % 40.1-51.0 MEAN CORPUSCULAR VOLUME (BEAKER) (test code = 88.7 fL 79 .0-92.2 753) MEAN CORPUSCULAR HEMOGLOBIN (BEAKER) (test code 27.5 pg 25.7-32.2 = 751) MEAN CORPUSCULAR HEMOGLOBIN CONC (BEAKER) (test 31.0 GM/DL 32.3-36.5 code = 752) RED CELL DISTRIBUTION WIDTH (BEAKER) (test code 14.2 % 11.6-14.4 = 412) PLATELET COUNT (BEAKER) (test code = 756) 123 K/CU MM 150-45 0 MEAN PLATELET VOLUME (BEAKER) (test code = 754) 11.3 fL 9.4-12.4 NUCLEATED RED BLOOD CELLS (BEAKER) (test code = 0 /100 WBC 0-0 413) NEUTROPHILS RELATIVE PERCENT (BEAKER) (test code 84 % = 429) LYMPHOCYTES RELATIVE PERCENT (BEAKER) (test code 9 % = 430) MONOCYTES RELATIVE PERCENT (BEAKER) (test code = 6 % 431) EOSINOPHILS RELATIVE PERCENT (BEAKER) (test code 0 % = 432) BASOPHILS RELATIVE PERCENT (BEAKER) (test code = 0 % 437) NEUTROPHILS ABSOLUTE COUNT (BEAKER) (test code = 6.44 K/ L 1.78-5.38 670) LYMPHOCYTES ABSOLUTE COUNT (BEAKER) (test code = 0.65 K/ L 1.32-3.57 414) MONOCYTES ABSOLUTE COUNT (BEAKER) (test code = 0.49 K/ L 0 .30-0.82 415) EOSINOPHILS ABSOLUTE COUNT (BEAKER) (test code = 0.01 K/ L 0.04-0.54 416) BASOPHILS ABSOLUTE COUNT (BEAKER) (test code = 0.01 K/ L 0 .01-0.08 417) IMMATURE GRANULOCYTES-RELATIVE PERCENT (BEAKER) 1 % 0-1 (test code = 2801) BASIC METABOLIC [id number] 03:49:00 Test Item Value Reference Range Comments SODIUM (BEAKER) (test 141 meq/L 136-145 code = 381) POTASSIUM (BEAKER) (test 4.0 meq/L 3.5-5.1 code = 379) CHLORIDE (BEAKER) (test 110 meq/L 98-107 code = 382) CO2 (BEAKER) (test code = 24 meq/L 22-29 355) BLOOD UREA NITROGEN 10 mg/dL 7-21 (BEAKER) (test code = 354) CREATININE (BEAKER) (test 0.71 mg/dL 0.57-1.25 code = 358) GLUCOSE RANDOM (BEAKER) 147 mg/dL 70-105 (test code = 652) CALCIUM (BEAKER) (test 7.8 mg/dL 8.4-10.2 code = 697) EGFR (BEAKER) (test code mL/min/1.73 sq m INSUF FICIENT CLINICAL DATA = 1092) TO CALCULATE EST IMATED GFR. [id number] 03:42:00 Test Item Value Reference Range Comments MAGNESIUM (BEAKER) (test code = 627) 1.9 mg/dL 1.6-2.6 POCT-GLUCOSE [id number] 03:04:00 Test Item Value Reference Range Comments POC-GLUCOSE METER (BEAKER) 143 mg/dL 70-110 TESTE D AT [address] (test code = 1538) [place] [address] POCT-GLUCOSE [id number] 02:04:00 Test Item Value Reference Range Comments POC-GLUCOSE METER (BEAKER) 146 mg/dL 70-110 TESTE D AT [facility] [address] [place] [address] (test code = 1538) [place] [address] POCT-GLUCOSE [id number] 01:04:00 Test Item Value Reference Range Comments POC-GLUCOSE METER (BEAKER) 203 mg/dL 70-110 TESTE D AT [address] (test code = 1538) [place] [address] [id number] 01:03:00 Test Item Value Reference Range Comments POTASSIUM (BEAKER) (test code = 379) 4.3 meq/L 3.5-5.1 [id number] 01:03:00 Test Item Value Reference Range Comments MAGNESIUM (BEAKER) (test code = 627) 2.1 mg/dL 1.6-2.6 CALCIUM, [id number] 00:29:00 Test Item Value Reference Range Comments CALCIUM IONIZED (BEAKER) (test code = 698) 1.08 mmol/L 1.12- 1.27 PH, BLOOD (BEAKER) (test code = 1810) 7.39 POCT-GLUCOSE [id number] 00:09:00 Test Item Value Reference Range Comments POC-GLUCOSE METER (BEAKER) 214 mg/dL 70-110 TESTE D AT [address] (test code = 1538) [place] [address] POCT-GLUCOSE [id number] 22:51:00 Test Item Value Reference Range Comments POC-GLUCOSE METER (BEAKER) 179 mg/dL 70-110 TESTE D AT [address] (test code = 1538) [place] [address]30 POCT-GLUCOSE [id number] 22:13:00 Test Item Value Reference Range Comments POC-GLUCOSE METER (BEAKER) 206 mg/dL 70-110 TESTE D AT [address] (test code = 1538) [facility] [address]30 BLOOD GAS, [id number] 21:08:00 Test Item Value Reference Range Comments PH ARTERIAL (BEAKER) (test code = 383) 7.35 7.35-7.45 PCO2 ARTERIAL (BEAKER) (test code = 384) 43 mmHg 35-45 PO2 ARTERIAL (BEAKER) (test code = 385) 136 mmHg 80-90 O2 SATURATION ARTERIAL (BEAKER) (test code = 98.6 % 96. 0-97.0 386) HCO3 ARTERIAL (BEAKER) (test code = 388) 23 mmol/L 21-29 BASE EXCESS ARTERIAL (BEAKER) (test code = 387) -2.1 mmol/L -2.0-3.0 PATIENT TEMPERATURE (BEAKER) (test code = 1818) 37.1 C FIO2 (BEAKER) (test code = 1819) 36.0 % Post extubation ABGPOCT-GLUCOSE [id number] 21:03:00 Test Item Value Reference Range Comments POC-GLUCOSE METER (BEAKER) 197 mg/dL 70-110 TESTE D AT [address] (test code = 1538) [place] [address] POCT-GLUCOSE [id number] 20:47:00 Test Item Value Reference Range Comments POC-GLUCOSE METER (BEAKER) 197 mg/dL 70-110 TESTE D AT [address] (test code = 1538) [place] [address]30 [id number] 20:10:00 Test Item Value Reference Range Comments MAGNESIUM (BEAKER) (test code = 627) 2.3 mg/dL 1.6-2.6 Check Serum Magnesium level 2 hours after IV magnesium replacement.POCT-GLUCOSE [id number] 20:02:00 Test Item Value Reference Range Comments POC-GLUCOSE METER (BEAKER) 234 mg/dL 70-110 TESTE D AT [address] (test code = 1538) [place] [address] BLOOD GAS, [id number] 19:57:00 Test Item Value Reference Range Comments PH ARTERIAL (BEAKER) (test code = 383) 7.36 7.35-7.45 PCO2 ARTERIAL (BEAKER) (test code = 384) 41 mmHg 35-45 PO2 ARTERIAL (BEAKER) (test code = 385) 121 mmHg 80-90 O2 SATURATION ARTERIAL (BEAKER) (test code = 98.2 % 96. 0-97.0 386) HCO3 ARTERIAL (BEAKER) (test code = 388) 23 mmol/L 21-29 BASE EXCESS ARTERIAL (BEAKER) (test code = 387) -2.7 mmol/L -2.0-3.0 PATIENT TEMPERATURE (BEAKER) (test code = 1818) 37.2 C FIO2 (BEAKER) (test code = 1819) 40.0 % POCT-GLUCOSE [id number] 18:44:00 Test Item Value Reference Range Comments POC-GLUCOSE METER (BEAKER) 209 mg/dL 70-110 TESTE D AT [address] (test code = 1538) [place] [address] BASIC METABOLIC [id number] 16:13:00 Test Item Value Reference Range Comments SODIUM (BEAKER) (test 141 meq/L 136-145 code = 381) POTASSIUM (BEAKER) (test 4.4 meq/L 3.5-5.1 Specime n slightly code = 379) hemolyzed CHLORIDE (BEAKER) (test 112 meq/L 98-107 code = 382) CO2 (BEAKER) (test code = 22 meq/L 22-29 355) BLOOD UREA NITROGEN 13 mg/dL 7-21 (BEAKER) (test code = 354) CREATININE (BEAKER) (test 0.73 mg/dL 0.57-1.25 Specim en slightly code = 358) hemolyzed GLUCOSE RANDOM (BEAKER) 179 mg/dL 70-105 (test code = 652) CALCIUM (BEAKER) (test 7.5 mg/dL 8.4-10.2 code = 697) EGFR (BEAKER) (test code mL/min/1.73 sq m INSUF FICIENT CLINICAL DATA = 1092) TO CALCULATE EST IMATED GFR. RAD, CHEST, 1 VIEW, NON [id number] 16:13:00Reason for exam:->intubated, chest tubesShould this be performed at the bedside?->YesFINAL REPORT TECHNIQUE: Frontal chest radiograph dated 11/29/2017. CLINICAL HI STORY: Intubated, chest tubes COMPARISON STUDY: Chest radiograph [...] are seen in the spine. Signed: [place] Verified Date/Time: 11/29/2017 16:13:26 Reading Location: [facility] Radiology Reading Room APTT 2017-11-29 16:12:00 Test Item Value Reference Range Comments PARTIAL THROMBOPLASTIN TIME (BEAKER) (test code 31.4 seconds 22.5-36.0 = 760) PROTHROMBIN [id number] 16:11:00 Test Item Value Reference Range Comments PROTIME (BEAKER) (test code = 759) 17.6 seconds 11.7-14.7 INR (BEAKER) (test code = 370) 1.5 <=5.9 RECOMMENDED COUMADIN/WARFARIN INR THERAPY RANGESSTANDARD DOSE: 2.0 - 3.0 Includes: PROPHYLAXIS forvenous thrombosis, systemic embolization; TREATMENT for venous thrombosis and/or pulmonary embolus.HIGH RISK: Target INR is 2.5-3.5 for patients with mechanical heart valves.[id number] 16:11:00 Test Item Value Reference Range Comments MAGNESIUM (BEAKER) (test code = 1.7 mg/dL 1.6-2.6 Specimen slightly hemolyzed 627) LACTIC ACID, ARTERIAL, WHOLE [id number] 16:06:00 Test Item Value Reference Range Comments LACTATE BLOOD ARTERIAL (2) 1.2 mmol/L 0.5-2.2 Speci men slightly hemolyzed (BEAKER) (test code = 2874) Effective 02/18/2016: Units/Reference Range ChangeNew: 0.5-2.2 mmol/L Previous: 5-20 mg/dLCBC W/PLT COUNT & AUTO [id number] 16:02:00 Test Item Value Reference Range Comments WHITE BLOOD CELL COUNT (BEAKER) (test code = 11.5 K/ L 3.5 -10.5 775) RED BLOOD CELL COUNT (BEAKER) (test code = 761) 3.42 M/ L 4.63-6.08 HEMOGLOBIN (BEAKER) (test code = 410) 9.6 GM/DL 13.7-17.5 HEMATOCRIT (BEAKER) (test code = 411) 30.6 % 40.1-51.0 MEAN CORPUSCULAR VOLUME (BEAKER) (test code = 89.5 fL 79 .0-92.2 753) MEAN CORPUSCULAR HEMOGLOBIN (BEAKER) (test code 28.1 pg 25.7-32.2 = 751) MEAN CORPUSCULAR HEMOGLOBIN CONC (BEAKER) (test 31.4 GM/DL 32.3-36.5 code = 752) RED CELL DISTRIBUTION WIDTH (BEAKER) (test code 14.0 % 11.6-14.4 = 412) PLATELET COUNT (BEAKER) (test code = 756) 100 K/CU MM 150-45 0 MEAN PLATELET VOLUME (BEAKER) (test code = 754) 10.7 fL 9.4-12.4 NUCLEATED RED BLOOD CELLS (BEAKER) (test code = 0 /100 WBC 0-0 413) NEUTROPHILS RELATIVE PERCENT (BEAKER) (test code 80 % = 429) LYMPHOCYTES RELATIVE PERCENT (BEAKER) (test code 11 % = 430) MONOCYTES RELATIVE PERCENT (BEAKER) (test code = 8 % 431) EOSINOPHILS RELATIVE PERCENT (BEAKER) (test code 0 % = 432) BASOPHILS RELATIVE PERCENT (BEAKER) (test code = 0 % 437) NEUTROPHILS ABSOLUTE COUNT (BEAKER) (test code = 9.14 K/ L 1.78-5.38 670) LYMPHOCYTES ABSOLUTE COUNT (BEAKER) (test code = 1.25 K/ L 1.32-3.57 414) MONOCYTES ABSOLUTE COUNT (BEAKER) (test code = 0.93 K/ L 0 .30-0.82 415) EOSINOPHILS ABSOLUTE COUNT (BEAKER) (test code = 0.05 K/ L 0.04-0.54 416) BASOPHILS ABSOLUTE COUNT (BEAKER) (test code = 0.02 K/ L 0 .01-0.08 417) IMMATURE GRANULOCYTES-RELATIVE PERCENT (BEAKER) 1 % 0-1 (test code = 2801) OXYGEN SATURATION, [id number] 15:54:00 Test Item Value Reference Range Comments O2 SATURATION (MEASURED) (BEAKER) (test code = 1455) 64.9 % From distal port of IJ central venous catheterSODIUM NA-STAT [id number] 15:54:00 Test Item Value Reference Range Comments SODIUM (BEAKER) (test code = 381) 138 meq/L 135-148 POTASSIUM-STAT [id number] 15:54:00 Test Item Value Reference Range Comments POTASSIUM (BEAKER) (test code = 379) 4.2 meq/L 3.6-5.5 BLOOD GAS, [id number] 15:54:00 Test Item Value Reference Range Comments PH ARTERIAL (BEAKER) (test code = 383) 7.33 7.35-7.45 PCO2 ARTERIAL (BEAKER) (test code = 384) 46 mmHg 35-45 PO2 ARTERIAL (BEAKER) (test code = 385) 155 mmHg 80-90 O2 SATURATION ARTERIAL (BEAKER) (test code = 98.9 % 96. 0-97.0 386) HCO3 ARTERIAL (BEAKER) (test code = 388) 24 mmol/L 21-29 BASE EXCESS ARTERIAL (BEAKER) (test code = 387) -2.4 mmol/L -2.0-3.0 PATIENT TEMPERATURE (BEAKER) (test code = 1818) 35.4 C FIO2 (BEAKER) (test code = 1819) 60.0 % CALCIUM, [id number] 15:54:00 Test Item Value Reference Range Comments CALCIUM IONIZED (BEAKER) (test code = 698) 1.06 mmol/L 1.12- 1.27 PH, BLOOD (BEAKER) (test code = 1810) 7.31 GLUCOSE-STAT [id number] 15:54:00 Test Item Value Reference Range Comments GLUCOSE RANDOM (BEAKER) (test code = 652) 173 mg/dL 70-110 HGB/HCT (H&H) - STAT [id number] 15:54:00 Test Item Value Reference Range Comments HEMOGLOBIN (BEAKER) (test code = 410) 10.3 g/dL 13.0-16.8 HEMATOCRIT (BEAKER) (test code = 411) 30.0 % 40.0-50.0 THROMBOELASTOGRAPH (TEG)[id number] 15:16:00 Test Item Value Reference Range Comments TEG ACTIVATED CLOTTING TIME (BEAKER) (test code 5.5 minutes 4.0-7.0 = 1407) TEG FIBRINOGEN ACTIVITY (BEAKER) (test code = 62.6 degrees 61 .0-73.0 1408) TEG PLT. AGGREGATION (BEAKER) (test code = 52.3 MM 55.0- 65.0 1409) TGH ACTIVATED CLOTTING TIME (BEAKER) (test code 5.5 minutes 4.0-7.0 = 1411) TGH FIBRINOGEN ACTIVITY (BEAKER) (test code = 65.7 degrees 61 .0-73.0 1412) TGH PLT. AGGREGATION (BEAKER) (test code = 56.4 MM 55.0- 65.0 1413) PLATELET [id number] 14:50:00 Test Item Value Reference Range Comments PLATELET COUNT (BEAKER) (test code = 756) 98 K/CU MM 150-45 0 [id number] 14:27:00 Test Item Value Reference Range Comments FIBRINOGEN LEVEL (BEAKER) (test code = 658) 176 mg/dl 225- 434 PROTHROMBIN [id number] 14:14:00 Test Item Value Reference Range Comments PROTIME (BEAKER) (test code = 759) 20.7 seconds 11.7-14.7 INR (BEAKER) (test code = 370) 1.8 <=5.9 RECOMMENDED COUMADIN/WARFARIN INR THERAPY RANGESSTANDARD DOSE: 2.0 - 3.0 Includes: PROPHYLAXIS forvenous thrombosis, systemic embolization; TREATMENT for venous thrombosis and/or pulmonary embolus.HIGH RISK: Target INR is 2.5-3.5 for patients with mechanical heart valves.[id number] 14:14:00 Test Item Value Reference Range Comments PARTIAL THROMBOPLASTIN TIME (BEAKER) (test code 30.2 seconds 22.5-36.0 = 760) CALCIUM, [id number] 13:55:00 Test Item Value Reference Range Comments CALCIUM IONIZED (BEAKER) (test code = 698) 1.13 mmol/L 1.12- 1.27 PH, BLOOD (BEAKER) (test code = 1810) 7.30 BLOOD GAS, [id number] 13:55:00 Test Item Value Reference Range Comments PH ARTERIAL (BEAKER) (test code = 383) 7.32 7.35-7.45 PCO2 ARTERIAL (BEAKER) (test code = 384) 49 mmHg 35-45 PO2 ARTERIAL (BEAKER) (test code = 385) 358 mmHg 80-90 O2 SATURATION ARTERIAL (BEAKER) (test code = 99.7 % 96. 0-97.0 386) HCO3 ARTERIAL (BEAKER) (test code = 388) 25 mmol/L 21-29 BASE EXCESS ARTERIAL (BEAKER) (test code = 387) -2.1 mmol/L -2.0-3.0 PATIENT TEMPERATURE (BEAKER) (test code = 1818) 36.0 C FIO2 (BEAKER) (test code = 1819) 100.0 % GLUCOSE-STAT [id number] 13:55:00 Test Item Value Reference Range Comments GLUCOSE RANDOM (BEAKER) (test code = 652) 201 mg/dL 70-110 HGB/HCT (H&H) - STAT [id number] 13:55:00 Test Item Value Reference Range Comments HEMOGLOBIN (BEAKER) (test code = 410) 9.7 g/dL 13.0-16.8 HEMATOCRIT (BEAKER) (test code = 411) 29.0 % 40.0-50.0 SODIUM NA-STAT [id number] 13:54:00 Test Item Value Reference Range Comments SODIUM (BEAKER) (test code = 381) 137 meq/L 135-148 POTASSIUM-STAT [id number] 13:54:00 Test Item Value Reference Range Comments POTASSIUM (BEAKER) (test code = 379) 3.9 meq/L 3.6-5.5 BLOOD GAS, [id number] 13:22:00 Test Item Value Reference Range Comments PH ARTERIAL (BEAKER) (test code = 383) 7.32 7.35-7.45 PCO2 ARTERIAL (BEAKER) (test code = 384) 50 mmHg 35-45 PO2 ARTERIAL (BEAKER) (test code = 385) 284 mmHg 80-90 O2 SATURATION ARTERIAL (BEAKER) (test code = 99.6 % 96. 0-97.0 386) HCO3 ARTERIAL (BEAKER) (test code = 388) 25 mmol/L 21-29 BASE EXCESS ARTERIAL (BEAKER) (test code = 387) -1.2 mmol/L -2.0-3.0 PATIENT TEMPERATURE (BEAKER) (test code = 1818) 36.5 C FIO2 (BEAKER) (test code = 1819) 80.0 % GLUCOSE-STAT [id number] 13:22:00 Test Item Value Reference Range Comments GLUCOSE RANDOM (BEAKER) (test code = 652) 191 mg/dL 70-110 HGB/HCT (H&H) - STAT [id number] 13:22:00 Test Item Value Reference Range Comments HEMOGLOBIN (BEAKER) (test code = 410) 9.3 g/dL 13.0-16.8 HEMATOCRIT (BEAKER) (test code = 411) 27.0 % 40.0-50.0 SODIUM NA-STAT [id number] 13:18:00 Test Item Value Reference Range Comments SODIUM (BEAKER) (test code = 381) 136 meq/L 135-148 POTASSIUM-STAT [id number] 13:18:00 Test Item Value Reference Range Comments POTASSIUM (BEAKER) (test code = 379) 4.6 meq/L 3.6-5.5 BLOOD GAS, [id number] 12:39:00 Test Item Value Reference Range Comments PH ARTERIAL (BEAKER) (test code = 383) 7.40 7.35-7.45 PCO2 ARTERIAL (BEAKER) (test code = 384) 39 mmHg 35-45 PO2 ARTERIAL (BEAKER) (test code = 385) 191 mmHg 80-90 O2 SATURATION ARTERIAL (BEAKER) (test code = 99.4 % 96. 0-97.0 386) HCO3 ARTERIAL (BEAKER) (test code = 388) 25 mmol/L 21-29 BASE EXCESS ARTERIAL (BEAKER) (test code = 387) -1.2 mmol/L -2.0-3.0 PATIENT TEMPERATURE (BEAKER) (test code = 1818) 32.2 C FIO2 (BEAKER) (test code = 1819) 60.0 % SODIUM NA-STAT [id number] 12:39:00 Test Item Value Reference Range Comments SODIUM (BEAKER) (test code = 381) 134 meq/L 135-148 GLUCOSE-STAT [id number] 12:39:00 Test Item Value Reference Range Comments GLUCOSE RANDOM (BEAKER) (test code = 652) 166 mg/dL 70-110 HGB/HCT (H&H) - STAT [id number] 12:39:00 Test Item Value Reference Range Comments HEMOGLOBIN (BEAKER) (test code = 410) 9.9 g/dL 13.0-16.8 HEMATOCRIT (BEAKER) (test code = 411) 29.0 % 40.0-50.0 POTASSIUM-STAT [id number] 12:38:00 Test Item Value Reference Range Comments POTASSIUM (BEAKER) (test code = 379) 4.4 meq/L 3.6-5.5 SODIUM NA-STAT [id number] 11:22:00 Test Item Value Reference Range Comments SODIUM (BEAKER) (test code = 381) 140 meq/L 135-148 POTASSIUM-STAT [id number] 11:22:00 Test Item Value Reference Range Comments POTASSIUM (BEAKER) (test code = 379) 4.0 meq/L 3.6-5.5 HGB/HCT (H&H) - STAT [id number] 11:22:00 Test Item Value Reference Range Comments HEMOGLOBIN (BEAKER) (test code = 410) 14.5 g/dL 13.0-16.8 HEMATOCRIT (BEAKER) (test code = 411) 43.0 % 40.0-50.0 BLOOD GAS, [id number] 11:22:00 Test Item Value Reference Range Comments PH ARTERIAL (BEAKER) (test code = 383) 7.38 7.35-7.45 PCO2 ARTERIAL (BEAKER) (test code = 384) 49 mmHg 35-45 PO2 ARTERIAL (BEAKER) (test code = 385) 295 mmHg 80-90 O2 SATURATION ARTERIAL (BEAKER) (test code = 386) 99.7 % 96.0-97.0 HCO3 ARTERIAL (BEAKER) (test code = 388) 28 mmol/L 21-29 BASE EXCESS ARTERIAL (BEAKER) (test code = 387) 1.7 mmol/L -2.0-3.0 PATIENT TEMPERATURE (BEAKER) (test code = 1818) 35.7 C FIO2 (BEAKER) (test code = 1819) 100.0 % GLUCOSE-STAT [id number] 11:22:00 Test Item Value Reference Range Comments GLUCOSE RANDOM (BEAKER) (test code = 652) 112 mg/dL 70-110 PLATELET AGGREGATION: FUNCTION [id number] 09:52:00 Test Item Value Reference Range Comments WEAK ADP RESULT(BEAKER) (test 68 % 60-91 code = 2135) PLATELET FUNCTION SCREEN 60-100% indicates normal INTERP (BEAKER) (test code = platelet function 2173) [id number] (BEAKER) Batsheva Llamas MD (electronic (test code = 2622) signature) PLATELET COUNT AGG (BEAKER) 176 K/CU MM 150-450 (test code = 2656) RAD, CHEST, 1 VIEW, NON [id number] 08:51:00Reason for exam:->preop for CV surgeryFINAL REPORT INDICATION: preop for CV surgery COMPARISON: None. TECHNIQUE: Chest radiograph, single view, portable technique. FINDINGS / IMPRESSION: There is suggestion of mild pulmonary venous congestion. No interstitial or alveolar edema. Mild tortuosity of the thoracic aorta without heart shadow enlargement. No pneumothorax or pleural effusion demonstrated. No evidence of infection. Osseous structures unremarkable. Signed: Cesario Parmar MDReport Verified Date/Time: 11/29/2017 08:51:39 Reading Location: [facility] Women Electronically signed by: CESARIO PARMAR M.D.on 11/29/2017 08:51 AM POCT-GLUCOSE [id number] 07:42:00 Test Item Value Reference Range Comments POC-GLUCOSE METER (BEAKER) 105 mg/dL 70-110 TESTE D AT [facility] [address] [facility] (test code = 1538) [facility] [address] COMPREHENSIVE METABOLIC [id number] 07:03:00 Test Item Value Reference Range Comments TOTAL PROTEIN (BEAKER) 7.9 gm/dL 6.0-8.3 (test code = 770) ALBUMIN (BEAKER) (test 4.0 g/dL 3.5-5.0 code = 1145) ALKALINE PHOSPHATASE 71 U/L 40-150 (BEAKER) (test code = 346) BILIRUBIN TOTAL (BEAKER) 0.6 mg/dL 0.2-1.2 (test code = 377) SODIUM (BEAKER) (test 140 meq/L 136-145 code = 381) POTASSIUM (BEAKER) (test 4.0 meq/L 3.5-5.1 code = 379) CHLORIDE (BEAKER) (test 103 meq/L 98-107 code = 382) CO2 (BEAKER) (test code = 26 meq/L 22-29 355) BLOOD UREA NITROGEN 14 mg/dL 7-21 (BEAKER) (test code = 354) CREATININE (BEAKER) (test 0.92 mg/dL 0.57-1.25 code = 358) GLUCOSE RANDOM (BEAKER) 112 mg/dL 70-105 (test code = 652) CALCIUM (BEAKER) (test 9.1 mg/dL 8.4-10.2 code = 697) AST (SGOT) (BEAKER) (test 19 U/L 5-34 code = 353) ALT (SGPT) (BEAKER) (test 26 U/L 6-55 code = 347) EGFR (BEAKER) (test code mL/min/1.73 sq m INSUF FICIENT CLINICAL DATA = 1092) TO CALCULATE EST IMATED GFR. BASIC METABOLIC [id number] 07:03:00 Test Item Value Reference Range Comments SODIUM (BEAKER) (test 140 meq/L 136-145 code = 381) POTASSIUM (BEAKER) (test 4.0 meq/L 3.5-5.1 code = 379) CHLORIDE (BEAKER) (test 103 meq/L 98-107 code = 382) CO2 (BEAKER) (test code = 26 meq/L 22-29 355) BLOOD UREA NITROGEN 14 mg/dL 7-21 (BEAKER) (test code = 354) CREATININE (BEAKER) (test 0.92 mg/dL 0.57-1.25 code = 358) GLUCOSE RANDOM (BEAKER) 112 mg/dL 70-105 (test code = 652) CALCIUM (BEAKER) (test 9.1 mg/dL 8.4-10.2 code = 697) EGFR (BEAKER) (test code mL/min/1.[address] [facility] 1092) TO CALCULATE EST IMATED GFR. [id number] 06:54:00 Test Item Value Reference Range Comments MAGNESIUM (BEAKER) (test code = 627) 1.9 mg/dL 1.6-2.6 PROTHROMBIN [id number] 06:46:00 Test Item Value Reference Range Comments PROTIME (BEAKER) (test code = 759) 13.4 seconds 11.7-14.7 INR (BEAKER) (test code = 370) 1.0 <=5.9 RECOMMENDED COUMADIN/WARFARIN INR THERAPY RANGESSTANDARD DOSE: 2.0 - 3.0 Includes: PROPHYLAXIS forvenous thrombosis, systemic embolization; TREATMENT for venous thrombosis and/or pulmonary embolus.HIGH RISK: Target INR is 2.5-3.5 for patients with mechanical heart valves.CBC W/PLT COUNT & AUTO DIFFERENTIAL 2017-11-29 06:35:00 Test Item Value Reference Range Comments WHITE BLOOD CELL COUNT (BEAKER) (test code = 6.8 K/ L 3.5 -10.5 775) RED BLOOD CELL COUNT (BEAKER) (test code = 761) 5.32 M/ L 4.63-6.08 HEMOGLOBIN (BEAKER) (test code = 410) 14.6 GM/DL 13.7-17.5 HEMATOCRIT (BEAKER) (test code = 411) 47.0 % 40.1-51.0 MEAN CORPUSCULAR VOLUME (BEAKER) (test code = 88.3 fL 79 .0-92.2 753) MEAN CORPUSCULAR HEMOGLOBIN (BEAKER) (test code 27.4 pg 25.7-32.2 = 751) MEAN CORPUSCULAR HEMOGLOBIN CONC (BEAKER) (test 31.1 GM/DL 32.3-36.5 code = 752) RED CELL DISTRIBUTION WIDTH (BEAKER) (test code 13.8 % 11.6-14.4 = 412) PLATELET COUNT (BEAKER) (test code = 756) 177 K/CU MM 150-45 0 MEAN PLATELET VOLUME (BEAKER) (test code = 754) 11.2 fL 9.4-12.4 NUCLEATED RED BLOOD CELLS (BEAKER) (test code = 0 /100 WBC 0-0 413) NEUTROPHILS RELATIVE PERCENT (BEAKER) (test code 57 % = 429) LYMPHOCYTES RELATIVE PERCENT (BEAKER) (test code 32 % = 430) MONOCYTES RELATIVE PERCENT (BEAKER) (test code = 7 % 431) EOSINOPHILS RELATIVE PERCENT (BEAKER) (test code 4 % = 432) BASOPHILS RELATIVE PERCENT (BEAKER) (test code = 0 % 437) NEUTROPHILS ABSOLUTE COUNT (BEAKER) (test code = 3.84 K/ L 1.78-5.38 670) LYMPHOCYTES ABSOLUTE COUNT (BEAKER) (test code = 2.19 K/ L 1.32-3.57 414) MONOCYTES ABSOLUTE COUNT (BEAKER) (test code = 0.44 K/ L 0 .30-0.82 415) EOSINOPHILS ABSOLUTE COUNT (BEAKER) (test code = 0.24 K/ L 0.04-0.54 416) BASOPHILS ABSOLUTE COUNT (BEAKER) (test code = 0.02 K/ L 0 .01-0.08 417) IMMATURE GRANULOCYTES-RELATIVE PERCENT (BEAKER) 0 % 0-1 (test code = 2801) POCT-GLUCOSE [id number] 21:53:00 Test Item Value Reference Range Comments POC-GLUCOSE METER (BEAKER) 131 mg/dL 70-110 TESTE D AT [facility] [address] (test code = 1538) [facility] [address] HEMOGLOBIN [id number] 20:50:00 Test Item Value Reference Range Comments HEMOGLOBIN A1C (BEAKER) (test code = 368) 6.6 % 4.3-6. 1 POCT-GLUCOSE [id number] 19:15:00 Test Item Value Reference Range Comments POC-GLUCOSE METER (BEAKER) 134 mg/dL 70-110 TESTE D AT [facility] [address] (test code = 1538) [place] [address] [id number] 18:35:00 Test Item Value Reference Range Comments PARTIAL THROMBOPLASTIN TIME (BEAKER) (test code 32.4 seconds 22.5-36.0 = 760) [id number] 18:34:00 Test Item Value Reference Range Comments FIBRINOGEN LEVEL (BEAKER) (test code = 658) 372 mg/dl 225- 434 TSH/FREE T4 IF [id number] 16:25:00 Test Item Value Reference Range Comments THYROID STIMULATING HORMONE (BEAKER) (test code 2.53 uIU/mL 0.35-4.94 = 772) BASIC METABOLIC [id number] 16:10:00 Test Item Value Reference Range Comments SODIUM (BEAKER) (test 139 meq/L 136-145 code = 381) POTASSIUM (BEAKER) (test 4.2 meq/L 3.5-5.1 code = 379) CHLORIDE (BEAKER) (test 106 meq/L 98-107 code = 382) CO2 (BEAKER) (test code = 25 meq/L 22-29 355) BLOOD UREA NITROGEN 15 mg/dL 7-21 (BEAKER) (test code = 354) CREATININE (BEAKER) (test 0.90 mg/dL 0.57-1.25 code = 358) GLUCOSE RANDOM (BEAKER) 124 mg/dL 70-105 (test code = 652) CALCIUM (BEAKER) (test 8.8 mg/dL 8.4-10.2 code = 697) EGFR (BEAKER) (test code mL/min/1.73 sq m INSUF FICIENT CLINICAL DATA = 1092) TO CALCULATE EST IMATED GFR. [id number] 16:09:00 Test Item Value Reference Range Comments PHOSPHORUS (BEAKER) (test code = 604) 3.0 mg/dL 2.3-4.7 [id number] 16:09:00 Test Item Value Reference Range Comments MAGNESIUM (BEAKER) (test code = 627) 2.0 mg/dL 1.6-2.6 LIPID [id number] 16:09:00 Test Item Value Reference Range Comments TRIGLYCERIDES (BEAKER) (test code = 540) 263 mg/dL CHOLESTEROL (BEAKER) (test code = 631) 143 mg/dL HDL CHOLESTEROL (BEAKER) (test code = 976) 32 mg/dL LDL CHOLESTEROL CALCULATED (BEAKER) (test code = 58 mg/dL 633) Triglyceride Reference Range: Low Risk <150 Borderline 150-199 High Risk 200-499 Very High Risk >=500Cholesterol Reference Range: Low Risk <200 Borderline 200-239 High Risk >240HDL Cholesterol Reference Range: Low Risk >=60 High Risk <40LDL Cholesterol Reference Range: Optimal <100 Near Optimal 100-129 Borderline 130-159 High 160-189 Very High >=190HEPATIC FUNCTION [id number] 16:09:00 Test Item Value Reference Range Comments TOTAL PROTEIN (BEAKER) (test code = 770) 7.5 gm/dL 6.0-8.3 ALBUMIN (BEAKER) (test code = 1145) 3.8 g/dL 3.5-5.0 BILIRUBIN TOTAL (BEAKER) (test code = 377) 0.4 mg/dL 0.2-1 .2 BILIRUBIN DIRECT (BEAKER) (test code = 706) 0.2 mg/dL 0.1- 0.5 ALKALINE PHOSPHATASE (BEAKER) (test code = 346) 72 U/L 40-150 AST (SGOT) (BEAKER) (test code = 353) 21 U/L 5-34 ALT (SGPT) (BEAKER) (test code = 347) 22 U/L 6-55 PT/[id number] 16:04:00 Test Item Value Reference Range Comments PROTIME (BEAKER) (test code = 759) 14.5 seconds 11.7-14.7 INR (BEAKER) (test code = 370) 1.1 <=5.9 PARTIAL THROMBOPLASTIN TIME (BEAKER) (test code 29.6 seconds 22.5-36.0 = 760) RECOMMENDED COUMADIN/WARFARIN INR THERAPY RANGESSTANDARD DOSE: 2.0 - 3.0 Includes: PROPHYLAXIS forvenous thrombosis, systemic embolization; TREATMENT for venous thrombosis and/or pulmonary embolus.HIGH RISK: Target INR is 2.5-3.5 for patients with mechanical heart valves.
[2020-02-25] MEDS ORDERED: NA CHLORIDE 0.9% 1,000 ML ONE (03:14)
[2020-02-25] MEDS ORDERED: ACETAMINOPHEN 500 MG TAB ONE (03:25)
[2020-02-25 03:33] LABS: Absolute Lymphocytes (CBC) 0.9 K/uL (0.7-4.9); Basophils % 0.4 % (0-1.3); Hematocrit 44.7 % (39.6-49.0); Lymphocytes % 8.1 % (15.3-44.8); MPV 9.6 fL (7.6-11.3); RBC Red Blood Cell Count 5.13 M/uL (4.33-5.43)
[2020-02-25 03:42] LABS: Albumin 3.3 g/dL (3.4-5.0); Bilirubin Direct 0.1 mg/dL (0-0.2); Bilirubin Total 0.6 mg/dL (0.2-1.0); Protein, Total 7.6 g/dL (6.4-8.2)
[2020-02-25 04:33] LABS: Urine Appearance CLEAR; Urine Bilirubin NEGATIVE (NEG); Urine Blood 1+ (NEG); Urine Color YELLOW; Urine Glucose NEGATIVE (NEG); Urine Protein NEGATIVE (NEG); Urine Specific Gravity <=1.005 (1.005-1.030); Urine Urobilinogen 0.2 mg/dL (0.2-1.0); Urine pH 6.5 (5.0-7.0)
[2020-02-25 04:36] LABS: Urine Microscopic Reflex ORDER UMIC
[2020-02-25 04:44] LABS: Blood Morphology Comment NOT SEEN (NOT SEEN); Platelet Estimate ADEQ
--- NOTE | 2020-02-25 05:28 | ER ---
Nurse's Notes [facility] Name: Armond Beltrán Age: 64 yrs Sex: Male : 1955 Arrival Date: 02/25/2020 Time: 02:43 Bed 28 Private MD: Diagnosis: Pneumonia due to other specified infectious organisms;Urinary tract infection, site not specified Presentation: 02/24 02:37 Chief complaint: EMS states: Called for patient having chills for about 45 minutes; lp1 Denies any other symptoms on arrival of EMS; Patient states having normal day, denies N/V, chest pain. 02:37 Coronavirus screen: Patient denies a cough. Patient denies shortness of breath or lp1 difficulty breathing. Patient reports a measured and/or subjective temperature greater than 100.4F. Patient denies travel on a cruise ship or to a country the [facility] currently lists as an affected area. Patient denies contact with known and/or suspected case of COVID-19. Ebola Screen: No symptoms or risks identified at this time. Initial Sepsis Screen: Does the patient meet any 2 criteria? HR > 90 bpm. Does the patient have a suspected source of infection? No. Patient's initial sepsis screen is negative. Risk Assessment: Do you want to hurt yourself or someone else? Patient reports no desire to harm self or others. Onset of symptoms was February 25, 2020. 02:37 Method Of Arrival: EMS: [facility] 02:37 Acuity: KEVIN 3 lp1 Historical: - Allergies: 03:11 NKA; lp1 - Home Meds: 03:11 atorvastatin 40 mg Oral tab 1 tab nightly [Active]; glyburide-metformin 5-500 mg oral lp1 tab 1 tab 2 times per day [Active]; metoprolol tartrate 50 mg Oral tab 1 tab 2 times per day [Active]; finasteride 5 mg Oral tab 1 tab once daily [Active]; tamsulosin 0.4 mg Oral cp24 1 cap once daily [Active]; furosemide 20 mg Oral tab 1 tab once daily [Active]; Valium 5 mg Oral tab [Active]; - PMHx: 03:11 Diabetes - NIDDM; Hypertension; Myocardial infarction; Chronic pain; lp1 - PSHx: 03:11 quadruple bypass; lp1 - Immunization history:: Adult Immunizations up to date. - Social history:: Smoking status: Patient denies any tobacco usage or history of. Screenin:06 Abuse screen: Denies threats or abuse. Denies injuries from another. Nutritional rv screening: No deficits noted. Tuberculosis screening: No symptoms or risk factors identified. Fall Risk None identified. Assessment: 03:05 General: Appears uncomfortable, ill, Behavior is calm, cooperative. Pain: Complains of rv pain in all over. Neuro: Level of Consciousness is awake, alert, obeys commands, Oriented to person, place, time, situation. Cardiovascular: Patient's skin is warm and dry. Respiratory: Airway is patent Respiratory effort is even, unlabored, Respiratory pattern is tachypnea. Derm: Skin is intact. 05:30 Reassessment: family updated on the test results and treatment plan. rv Vital Signs: 02:37 BP 148 / 87; Pulse 105; Resp 20; Temp 100(O); Pulse Ox 94% on R/A; Weight 142.88 kg lp1 (R); Height 6 ft. 3 in. (190.50 cm); 03:24 BP 132 / 74; Pulse 84; Resp 24; Temp 98.7; Pulse Ox 96% on R/A; rv 03:24 BP 116 / 69; Pulse 102; Resp 20; Temp 100; Pulse Ox 97% on R/A; rv 04:05 Temp 98.7(O); rv 04:30 BP 128 / 80; Pulse 86; Resp 23; Pulse Ox 96% on R/A; rv 05:30 BP 149 / 84; Pulse 85; Resp 24; Pulse Ox 95% on R/A; rv 06:00 BP 119 / 52; Pulse 76; Resp 20; Pulse Ox 96% on R/A; rv 02:37 Body Mass Index 39.37 (142.88 kg, 190.50 cm) lp1 ED Course: 02:43 Patient arrived in ED. jb4 02:49 Darin Steven MD is Attending Physician. mh7 02:58 Triage completed. lp1 02:58 Arm band placed on. lp1 03:05 Jn Gongora RN is Primary Nurse. rv 03:05 Inserted saline lock: 20 gauge in left forearm, using aseptic technique. Blood rv collected. 03:06 Patient has correct armband on for positive identification. sleeve machine tender on. Pulse rv ox on. NIBP on. 03:43 Chest Pa And Lat (2 Views) XRAY In Process Unspecified. EDMS 05:25 James Rg MD is Hospitalizing Provider. 7 06:26 No provider procedures requiring assistance completed. IV is patent, with fluids rv infusing freely, with good blood return, Patient admitted, IV remains in place. Administered Medications: 03:17 Drug: NS 0.9% 1000 ml Route: IV; Rate: 1000 ml; Site: left forearm; rv 05:00 Follow up: IV Status: Completed infusion; IV Intake: 1000ml rv 03:20 Drug: Tylenol 1000 mg Route: PO; rv 04:05 Follow up: Temp 98.7 Oral; Response: Temperature is decreased rv 03:21 Drug: NS 0.9% 1000 ml Route: IV; Rate: 125 ml/hr; Site: left forearm; rv 06:27 Follow up: IV Status: Infusion continued upon admission rv 05:20 Drug: Rocephin - (cefTRIAXone) 1 grams Route: IVPB; Infused Over: 30 mins; Site: left rv forearm; 05:34 Follow up: IV Status: Completed infusion rv 05:30 Drug: AZITHromycin 500 mg Route: IVPB; Infused Over: 1 hrs; Site: left forearm; rv 06:27 Follow up: IV Status: Infusion continued upon admission rv Intake: 05:00 IV: 1000ml; Total: 1000ml. rv Outcome: 05:28 Decision to Hospitalize by Provider. mh7 06:26 Admitted to ER Hold. Please see [facility] for further documentation. rv 06:26 Condition: good 06:26 Instructed on the need for admit, Demonstrated understanding of instructions. 14:12 Patient left the ED. aa5 Signatures: Dispatcher [employer] EDMS Bridget Dhillon RN RN aa5 Linda Escoto RN RN lp1 Robert Graves RN RN jb4 Jn Gongora RN RN rv Darin Steven MD MD mh7 Corrections: (The following items were deleted from the chart) 04:01 03:24 BP 116 / 69; Pulse 102bpm; Resp 30bpm; Pulse Ox 97% RA; Temp 100F; rv rv 04:01 03:24 BP 116 / 69; Pulse 102bpm; Resp 25bpm; Pulse Ox 97% RA; Temp 100F; rv rv
--- NOTE | 2020-02-25 05:28 | EDPHYS ---
Physician Documentation [facility] Name: Armond Beltrán Age: 64 yrs Sex: Male : 1955 Arrival Date: 02/25/2020 Time: 02:43 Bed 28 Private MD: ED Physician Darin Steven HPI: 02/24 03:24 This 64 yrs old Male presents to ER via EMS with complaints of Chills. mh7 03:24 The patient reports fever, Patient states that he has chills. He denies any fever.. mh7 Onset: The symptoms/episode began/occurred acutely, 2 hour(s) ago. Modifying factors: there are no obvious modifying factors. Associated signs and symptoms: Pertinent positives: chills, Pertinent negatives: abdominal pain, altered mental status, arthralgias, backache, chest pain, cough, diarrhea, pulling at ears, earache, headache, hemoptysis, myalgias, nausea, night sweats, runny nose, sinus congestion, sinus drainage, skin rash, shortness of breath, sore throat, swelling, vomiting. Severity of symptoms: At their worst the symptoms were moderate just prior to arrival, in the emergency department the symptoms have improved moderately. The patient has not experienced similar symptoms in the past. Patient states that he was sitting and watching TV when he started to have chills. He denies any fever, cough, sore throat, nausea, vomiting, chest pain, SOB, abdominal pain, dysuria, or other complaints. He denies any sick contacts or recent travel.. Historical: - Allergies: 03:11 NKA; lp1 - Home Meds: 03:11 atorvastatin 40 mg Oral tab 1 tab nightly [Active]; glyburide-metformin 5-500 mg oral lp1 tab 1 tab 2 times per day [Active]; metoprolol tartrate 50 mg Oral tab 1 tab 2 times per day [Active]; finasteride 5 mg Oral tab 1 tab once daily [Active]; tamsulosin 0.4 mg Oral cp24 1 cap once daily [Active]; furosemide 20 mg Oral tab 1 tab once daily [Active]; Valium 5 mg Oral tab [Active]; - PMHx: 03:11 Diabetes - NIDDM; Hypertension; Myocardial infarction; Chronic pain; lp1 - PSHx: 03:11 quadruple bypass; lp1 - Immunization history:: Adult Immunizations up to date. - Social history:: Smoking status: Patient denies any tobacco usage or history of. ROS: 03:24 Eyes: Negative for injury, pain, redness, and discharge, ENT: Negative for injury, mh7 pain, and discharge, Neck: Negative for injury, pain, and swelling, Cardiovascular: Negative for chest pain, palpitations, and edema, Respiratory: Negative for shortness of breath, cough, wheezing, and pleuritic chest pain, Abdomen/GI: Negative for abdominal pain, nausea, vomiting, diarrhea, and constipation, Back: Negative for injury and pain, : Negative for injury, bleeding, discharge, and swelling, MS/Extremity: Negative for injury and deformity, Skin: Negative for injury, rash, and discoloration, Neuro: Negative for headache, weakness, numbness, tingling, and seizure, Psych: Negative for depression, anxiety, suicide ideation, homicidal ideation, and hallucinations, Allergy/Immunology: Negative for hives, rash, and allergies, Endocrine: Negative for neck swelling, polydipsia, polyuria, polyphagia, and marked weight changes, Hematologic/Lymphatic: Negative for swollen nodes, abnormal bleeding, and unusual bruising. Exam: 03:24 Constitutional: This is a well developed, well nourished patient who is awake, alert, mh7 and in no acute distress. Head/Face: Normocephalic, atraumatic. Eyes: Pupils equal round and reactive to light, extra-ocular motions intact. Lids and lashes normal. Conjunctiva and sclera are non-icteric and not injected. Cornea within normal limits. Periorbital areas with no swelling, redness, or edema. ENT: Nares patent. No nasal discharge, no septal abnormalities noted. Tympanic membranes are normal and external auditory canals are clear. Oropharynx with no redness, swelling, or masses, exudates, or evidence of obstruction, uvula midline. Mucous membranes moist. Neck: Trachea midline, no thyromegaly or masses palpated, and no cervical lymphadenopathy. Supple, full range of motion without nuchal rigidity, or vertebral point tenderness. No Meningismus. Chest/axilla: Normal chest wall appearance and motion. Nontender with no deformity. No lesions are appreciated. Cardiovascular: Regular rate and rhythm with a normal S1 and S2. No gallops, murmurs, or rubs. Normal PMI, no JVD. No pulse deficits. Respiratory: Lungs have equal breath sounds bilaterally, clear to auscultation and percussion. No rales, rhonchi or wheezes noted. No increased work of breathing, no retractions or nasal flaring. Abdomen/GI: Soft, non-tender, with normal bowel sounds. No distension or tympany. No guarding or rebound. No evidence of tenderness throughout. Back: No spinal tenderness. No costovertebral tenderness. Full range of motion. Skin: Warm, dry with normal turgor. Normal color with no rashes, no lesions, and no evidence of cellulitis. MS/ Extremity: Pulses equal, no cyanosis. Neurovascular intact. Full, normal range of motion. Neuro: Awake and alert, GCS 15, oriented to person, place, time, and situation. Cranial nerves II-XII grossly intact. Motor strength 5/5 in all extremities. Sensory grossly intact. Cerebellar exam normal. Normal gait. Vital Signs: 02:37 BP 148 / 87; Pulse 105; Resp 20; Temp 100(O); Pulse Ox 94% on R/A; Weight 142.88 kg lp1 (R); Height 6 ft. 3 in. (190.50 cm); 03:24 BP 132 / 74; Pulse 84; Resp 24; Temp 98.7; Pulse Ox 96% on R/A; rv 03:24 BP 116 / 69; Pulse 102; Resp 20; Temp 100; Pulse Ox 97% on R/A; rv 04:05 Temp 98.7(O); rv 04:30 BP 128 / 80; Pulse 86; Resp 23; Pulse Ox 96% on R/A; rv 05:30 BP 149 / 84; Pulse 85; Resp 24; Pulse Ox 95% on R/A; rv 06:00 BP 119 / 52; Pulse 76; Resp 20; Pulse Ox 96% on R/A; rv 02:37 Body Mass Index 39.37 (142.88 kg, 190.50 cm) lp1 MDM: 03:06 Patient medically screened. [facility] 05:20 Differential diagnosis: viral Infection, bacterial infection, pneumonia UTI. Data [facility] reviewed: vital signs, nurses notes, EMS record, lab test result(s), CBC, urinalysis, radiologic studies, plain films. Counseling: I had a detailed discussion with the patient and/or guardian regarding: the historical points, exam findings, and any diagnostic results supporting the discharge/admit diagnosis, lab results, radiology results, the need for further work-up and treatment in the hospital. Response to treatment: the patient's symptoms have mildly improved after treatment. 05:28 Admission orders: after a detailed discussion of the patient's condition and case, the [facility] admit orders are written by me. ED course: Feels better, NAD, VSS, no focal neurological deficits. No chest pain, SOB, nausea, or vomiting. Discussed all test results and findings with the patient and need for admission. Discussed with and admitted to Dr. Rg.. 06:06 Data interpreted: citrix lead: rate is 102 beats/min, rhythm is sinus tachycardia, [facility] Interpretation: normal rhythm, tachycardia, Pulse oximetry: on room air is 97 %. Interpretation: normal. Physician consultation: James Rg MD regarding admission, to the telemetry unit. 02/24 03:06 Order name: CBC with Diff; Complete Time: 05:01 [facility] 02/24 03:06 Order name: BMP; Complete Time: 03:46 [facility] 02/24 03:06 Order name: UA [facility] 02/24 03:06 Order name: Influenza Screen (a \T\ B); Complete Time: 03:55 [facility] 02/24 03:08 Order name: Rapid Strep; Complete Time: 03:55 [facility] 02/24 03:11 Order name: Lactate; Complete Time: 03:59 [facility] 02/24 03:21 Order name: Liver (Hepatic) Function; Complete Time: 03:46 [facility] 02/24 03:36 Order name: Manual Differential; Complete Time: 05:01 [facility] 02/24 03:52 Order name: Throat Culture [facility] 02/24 03:55 Order name: Blood Culture Adult (2) [facility] 02/24 04:41 Order name: Urine Microscopic Only [facility] 02/24 05:29 Order name: Urine Dipstick--Ancillary (enter results) [facility] 02/24 05:31 Order name: COVID-19 [facility] 02/24 03:06 Order name: Chest Pa And Lat (2 Views) XRAY [facility] 02/24 03:06 Order name: Saline Lock; Complete Time: 03:06 [facility] 02/24 05:50 Order name: Urine Culture EDMS 02/24 06:38 Order name: Lactate Sepsis 2 HR Follow-up EDMS 02/24 10:33 Order name: Troponin I EDMS Administered Medications: 03:17 Drug: NS 0.9% 1000 ml Route: IV; Rate: 1000 ml; Site: left forearm; rv 05:00 Follow up: IV Status: Completed infusion; IV Intake: 1000ml rv 03:20 Drug: Tylenol 1000 mg Route: PO; rv 04:05 Follow up: Temp 98.7 Oral; Response: Temperature is decreased rv 03:21 Drug: NS 0.9% 1000 ml Route: IV; Rate: 125 ml/hr; Site: left forearm; rv 06:27 Follow up: IV Status: Infusion continued upon admission rv 05:20 Drug: Rocephin - (cefTRIAXone) 1 grams Route: IVPB; Infused Over: 30 mins; Site: left rv forearm; 05:34 Follow up: IV Status: Completed infusion rv 05:30 Drug: AZITHromycin 500 mg Route: IVPB; Infused Over: 1 hrs; Site: left forearm; rv 06:27 Follow up: IV Status: Infusion continued upon admission rv Disposition: 02/25/20 05:28 Hospitalization ordered by James Rg for Inpatient Admission. Preliminary diagnosis are Pneumonia due to other specified infectious organisms, Urinary tract infection, site not specified. - Bed requested for Telemetry/MedSurg (Inpatient). - Status is Inpatient Admission. aa5 - Condition is Stable. - Problem is new. - Symptoms have improved. Signatures: Dispatcher [employer] EDCO Tayler Skelton RN TIARRA Nohemi Redding RN TIARRA Bridget Dhillon RN RN aa5 Linda Escoto RN RN lp1 Jn Gongora RN RN rv Darin Steven MD MD 7 Corrections: (The following items were deleted from the chart) 03:20 03:09 HEPATIC FUNCTION+C.LAB.BRZ ordered. [facility] EDCO 05:51 05:28 Hospitalization Ordered by James Rg MD for Inpatient Admission. Preliminary diagnosis is Pneumonia due to other specified infectious organisms; Urinary tract infection, site not specified. Bed requested for Telemetry/MedSurg (Inpatient). Status is Inpatient Admission. Condition is Stable. Problem is new. Symptoms have improved. 7 12:54 05:51 02/25/2020 05:28 Hospitalization Ordered by James Rg MD for Inpatient dw Admission. Preliminary diagnosis is Pneumonia due to other specified infectious organisms; Urinary tract infection, site not specified. Bed requested for [facility] ER HOLD. Status is Inpatient Admission. Condition is Stable. Problem is new. Symptoms have improved. mw 14:12 12:54 02/25/2020 05:28 Hospitalization Ordered by James Rg MD for Inpatient aa5 Admission. Preliminary diagnosis is Pneumonia due to other specified infectious organisms; Urinary tract infection, site not specified. Bed requested for Telemetry/MedSurg (Inpatient). Status is Inpatient Admission. Condition is Stable. Problem is new. Symptoms have improved. dw
[2020-02-25] MEDS ORDERED: CEFTRIAXONE/SWI 1gm 1 GM/10 ML SYR ONE (05:33)
[2020-02-25] MEDS ORDERED: AZITHROMYCIN 500 MG INJ IVPB ONE (05:33)
[2020-02-25] MEDS ORDERED: NA CHLORIDE 0.9% 250 ML ONE ×2 (05:33→15:21)
[2020-02-25 05:47] LABS: Urine Bacteria >50 /HPF (NONE SEEN); Urine Culture Reflex Order REFLEXED; Urine RBC NONE SEEN /HPF (NONE SEEN)
[2020-02-25 05:48] LABS: Urine Blood 1+ (NEG); Urine Glucose NEGATIVE (NEG); Urine Protein NEGATIVE (NEG); Urine Specific Gravity 1.015 (1.005-1.030); Urine pH 6.5 (5.0-7.0)
[2020-02-25 06:24] VITALS: BMI 39.3
[2020-02-25] MEDS ORDERED: ALBUTEROL 2.5 MG/3 ML NEB SOL NEB PRN ×2 (08:30)
[2020-02-25] MEDS ORDERED: IPRATROPIUM BROM 0.5MG/2.5ML NEB PRN ×2 (08:30)
[2020-02-25] MEDS ORDERED: ACETAMINOPHEN 500 MG TAB PO PRN ×2 (08:30)
[2020-02-25] MEDS ORDERED: AZITHROMYCIN IV 250 MG in NA CHLORIDE 0.9% 250 ML IVPB SCH (09:00)
[2020-02-25] MEDS ORDERED: CEFTRIAXONE 1 GM/NS 50 ML 1 GM/50 ML BAG IV SCH (09:00)
[2020-02-25] MEDS: HYDROCODONE/APAP 10/325 TAB PO SCH ×3 (10:12→21:45)
--- NOTE | 2020-02-25 10:19 | RAD REPORT ---
EXAM DESCRIPTION: XR Chest, 2 Views CLINICAL HISTORY: The patient is 64 years old and is Male; FEVER TECHNIQUE: Frontal and lateral views of the chest. COMPARISON: No relevant prior studies available. FINDINGS: LUNGS: Patchy opacity within the left lower lobe and to a lesser extent the right lower lobe is noted. PLEURAL SPACE: Unremarkable. No pneumothorax. HEART: The cardiac silhouette is enlarged. MEDIASTINUM: Unremarkable. BONES/JOINTS: Median sternotomy wires and vascular clips are present. IMPRESSION: Findings suggestive of left lower lobe atelectasis/infiltrate with development of atelectasis in t he right lower lobe. Electronically signed by: Deepthi Pizarro MD 02/25/2020 4:09 AM CDT Due to temporary technical issues with the PACS/Fluency reporting system, reports are being signed by the in house radiologist as a courtesy to ensure prompt reporting. The interpreting radiologist is f ully responsible for the content of the report.
[2020-02-25] MEDS ORDERED: HYDROCODONE/APAP 10/325 TAB ONE (10:42)
--- NOTE | 2020-02-25 17:05 | P.SSS ---
Patient History Date of Service: 02/25/20 Reason for admission: CHILLS. History of Present Illness: MR. SPENCE WHO IS AN [employer] WITH SEVERE BACK ISSUES COMES IN WITH CHILLS LAST NIGHT. HE HAS PNEUMONIA VS ATELECTASIS ON ONE SIDE. HE ALSO HAS CHRONIC CHOLECYSTITIS FOR WHICH HE DOES NOT WANT ANYTHING DONE. HE UNDERSTANDS HE CAN GET SEPSIS FROM IT. Allergies No Known Allergies Allergy (Verified 01/17/19 20:21) Home Medications: Hydrocodone 10/APAP 325 [[place] 10/325*] 1 tab PO TID 09/02/19 Aspirin 81 mg PO DAILY 09/03/19 Cholecalciferol (Vitamin D3) [Vitamin D3] 2,000 unit PO DAILY 09/03/19 Finasteride [Proscar*] 5 mg PO DAILY 09/03/19 Glyburide/Metformin HCl [Glucovance 5-500 mg Tablet] 1 tab PO BID 09/03/19 Tamsulosin [Flomax*] 0.4 mg PO DAILY 09/03/19 diazePAM [Diazepam] 5 mg PO DAILY 09/03/19 Atorvastatin Calcium [Lipitor] 1 tab PO BEDTIME 02/25/20 Furosemide [Lasix*] 1 tab PO DAILY 02/25/20 Metoprolol Tartrate [Lopressor*] 1 tab PO BID 02/25/20 - Past Medical/Surgical History Diabetic: Yes -: CAD -: NIDDM -: obstructive sleep apnea -: Chronic back pain -: Hyperlipedemia -: Heart cath/with stents x3 -: laminectomy -: coronary artery bypass graft - Social History Smoking Status: Never smoker Alcohol use: No CD- Drugs: No Caffeine use: Yes Review of Systems 10-point ROS is otherwise unremarkable Gastrointestinal: As per HPI Physical Examination - Vital Signs Temperature: 97.6 F Blood Pressure: 174/84 Pulse: 58 Respirations: 16 Pulse Ox (%): 96 - Physical Exam General: Oriented x3, Mild distress HEENT: Atraumatic, PERRLA, Mucous membr. moist/pink, EOMI, Sclerae nonicteric Neck: Supple, 2+ carotid pulse no bruit, No LAD, Without JVD or thyroid abnormality Respiratory: Clear to auscultation bilaterally, Normal air movement Cardiovascular: Regular rate/rhythm, Normal S1 S2 Musculoskeletal: No tenderness Integumentary: No rashes Neurological: Normal gait, Normal speech, Normal strength at 5/5 x4 extr, Normal tone, Normal affect Lymphatics: No axilla or inguinal lymphadenopathy - Studies Laboratory Data (last 24 hrs) 02/25/20 03:10: Sodium 139, Potassium 4.0, BUN 18, Creatinine 1.29, Glucose 133 H, Total Bilirubin 0.6, AST 21, ALT 39, Alkaline Phosphatase 108 02/25/20 03:10: WBC 10.8, Hgb 14.6, Hct 44.7, Plt Count 157 02/25/20 03:09: Total Bilirubin Cancelled, AST Cancelled, ALT Cancelled, Alkaline Phosphatase Cancelled Microbiology Data (last 24 hrs): 02/25/20 05:30 Nasopharnyx Coronavirus COVID-19 PCR - Final 02/25/20 03:15 Nasopharnyx Influenza Type A Antigen Screen - Final 02/25/20 03:15 Nasopharnyx Influenza Type B Antigen Screen - Final 02/25/20 03:15 Throat Group A Streptococcus Rapid Screen - Final - Diagnosis (Problem(s)) (1) Chills Current Visit: Yes Status: Acute Plan: IV ROCEPHIN AND ZITHROMAX. NEBS. HE IS TOTALLY ASYMPTOMATIC NOW. HE WILL GO HOME ON ORAL ABX IN AM. (2) Bacterial pneumonia Current Visit: Yes Status: Acute Plan: ABOVE. - Disposition Disposition: ROUTINE DISCHARGE
[2020-02-25] MEDS: METFORMIN HCL 500 MG TAB PO SCH (18:27)
[2020-02-25] MEDS: glyBURIDE 2.5 MG TAB PO SCH (18:27)
--- NOTE | 2020-02-25 18:46 | EKG ---
Test Date: 2020-02-25 Test Time: 02:48:13 Leather Flesher: ARANZA MEASUREMENT RESULTS: Intervals: Rate: 104 NV: 152 QRSD: 142 QT: 398 QTc: 523 [place]: P: 71 NV: 152 QRS: 267 T: 52 INTERPRETIVE STATEMENTS: Sinus tachycardia Right bundle branch block Possible Lateral infarct, age undetermined Inferior infarct, age undetermined Abnormal ECG Compared to ECG 09/02/2019 16:16:08 Right bundle-branch block now present Myocardial infarct finding now present Sinus rhythm no longer present Left anterior fascicular block no longer present T-wave abnormality no longer present Possible ischemia no longer present Prolonged QT interval no longer present Electronically Signed On 02-25-20 18:43:59 CDT by Floyd Grayson
[2020-02-25] MEDS ORDERED: DIAZEPAM 5 MG TABLET PO SCH (21:00)
[2020-02-25] MEDS ORDERED: HYDROCODONE/APAP 10/325 TAB PO SCH (21:00)
[2020-02-25] MEDS ORDERED: GLYBURIDE PO SCH (21:00)
[2020-02-25] MEDS ORDERED: METFORMIN HCL PO SCH (21:00)
[2020-02-25] MEDS ORDERED: ATORVASTATIN 40 MG TAB PO SCH (21:00)
[2020-02-25] MEDS: METOPROLOL TAR 50 MG TAB PO SCH (21:45)
[2020-02-25] MEDS: CEFTRIAXONE/SWI 1gm 1 GM/10 ML SYR IV SCH (21:46)
[2020-02-26 06:00] LABS: Absolute Lymphocytes (CBC) 1.6 K/uL (0.7-4.9); Basophils % 0.3 % (0-1.3); MPV 9.8 fL (7.6-11.3); Potassium 3.9 mmol/L (3.5-5.1); RBC Red Blood Cell Count 4.59 M/uL (4.33-5.43)
[2020-02-26] MEDS: METOPROLOL TAR 50 MG TAB PO SCH (08:03)
[2020-02-26] MEDS: METFORMIN HCL 500 MG TAB PO SCH (08:04)
[2020-02-26] MEDS: glyBURIDE 2.5 MG TAB PO SCH (08:04)
[2020-02-26] MEDS: HYDROCODONE/APAP 10/325 TAB PO SCH (08:05)
[2020-02-26] MEDS: CEFTRIAXONE/SWI 1gm 1 GM/10 ML SYR IV SCH (08:09)
[2020-02-26 08:10] VITALS: BP 152/84
[2020-02-26 08:39] VITALS: O2SAT 96
[2020-02-26 08:57] VITALS: TEMP 97.1
[2020-02-26] MEDS ORDERED: TAMSULOSIN 0.4 MG SR CAP PO SCH (09:00)
[2020-02-26] MEDS ORDERED: DIAZEPAM 5 MG TABLET PO SCH (09:00)
[2020-02-26] MEDS ORDERED: FUROSEMIDE 20 MG TABLET PO SCH (09:00)
[2020-02-26] MEDS ORDERED: T PO SCH (09:00)
[2020-02-26] MEDS ORDERED: METOPROLOL TAR 50 MG TAB PO SCH (09:00)
[2020-02-26] MEDS ORDERED: ASPIRIN 81 MG CHEWABLE TABLET PO SCH (09:00)
[2020-02-26] MEDS ORDERED: FINASTERIDE 5 MG TAB PO SCH (09:00)
== END 2020-02-26 10:10 | disposition home or self-care (01) ==
LOC: ER 02:32 → INTOOBSV 05:59 → ERHOLD 05:59 → 2ND 13:31
PROVIDERS: ADMIT Internal Medicine; ATTEND Internal Medicine
DX: J15.9 Unspecified bacterial pneumonia (principal); I25.10 Atherosclerotic heart disease of native coronary artery without angina pectoris; E11.9 Type 2 diabetes mellitus without complications; G47.33 Obstructive sleep apnea (adult) (pediatric); E78.5 Hyperlipidemia, unspecified; Z20.828 Contact with and (suspected) exposure to other viral communicable diseases
CPT/HCPCS: 96365; 96361; 93005; 87040 ×2; 87070; 87088; 85025 ×2; 87086; 80048 ×2; 36415 ×2; 82947 ×3; 80076; 87081; 83605 ×2; 87077; 87186; 84484 ×2; 83880; 87804 ×2; 71046; 94760 ×2; 96375; 99285; U0002; J0456; J0696 ×3; J7030 ×3; G0378 ×3; 81003; 81015; J1439

== ENCOUNTER 2021-03-16 19:40 | Observation (INO) | payer OTHER ==
--- OUTSIDE RECORDS SUMMARY | 2021-03-16 19:45 | XMS REPORT | Continuity of Care Document ---
:1955 Author Organization [facility] t Address [address] [place] [address] Care Team Providers Name Role Phone Sharpless Primary Care Physician Calvin Mojica Attending Clinician Doctor Unassigned, Name Attending Clinician Unavailable BEV ORTIZ Attending Clinician Unavailable BEV ORTIZ Admitting Clinician Unavailable Problems Condition Condition Condition Status Onset Resolution Last Treating Co mments Source Name Details Category Date Date Treatment Clinician Date Chronic Chronic Disease Active [facility] 00 [place] Acute Acute Disease Active [facility] blood loss blood loss 2-13 Ashley kes - anemia anemia 00:00: Medical 00 [place] Thrombocyt Thrombocyt Disease Active [facility] openia openia 2-13 [facility] Medical 00 [place] Acute Acute Disease Active [facility] postoperat postoperat 2-13 Ashley kes - marti pain marti pain 00:00: Medica l 00 [place] Hyperglyce Hyperglyce Disease Active [facility] chinyere chinyere 2-13 [facility] Medical 00 [place] Borderline Borderline Disease Active [facility] diabetes diabetes 2-13 [facility] Medical 00 [place] Acute Acute Disease Active [facility] respirator respirator 2-13 Ashley kes - y y 00:00: Medical insufficie insufficie 00 Ce nter ncy, ncy, postoperat postoperat marti marti CAD CAD Disease Active [facility] (coronary (coronary 11-29 Luke s - artery artery 00:00: Medical disease) disease) 00 Center S/P CABG x S/P CABG x Disease Active [facility] 4 4 11-29 [facility] Center Allergies, Adverse Reactions, Alerts This patient has no known allergies or adverse reactions. Social History Social Habit Start Date Stop Date Quantity Comments Source Sex Assigned At [facility] Tobacco use and 2017-11-29 2017-11-29 Never used [facility] exposure 00:00:00 00:00:00 [facility] Alcohol intake 2017-11-29 2017-11-29 Current [facility] es - 00:00:00 00:00:00 non-drinker of [facility] nter alcohol (finding) Smoking Status Start Date Stop Date Source Never smoker [facility] edical [place] Medications Ordered Filled Start Stop Current Ordering Indication Dosage Frequency Signature Comments Components Source Medication Medication Date Date Medication? Clinician (SIG) Name Name tamsulosin Yes .4mg QD Take 1 [facility] (FLOMAX) 2-20 capsule [facility] - 0.4 mg Cp24 00:00: (0.4 mg Med ical 24 hr 00 total) by Center capsule mouth daily. HYDROcodone Yes 1{tbl} Take [address] -acetaminop 2-19 tablet by Kayla cisneros - hen (NORCO 17:49: mouth Medica l 10-325) 47 every 6 Center 10-325 mg (six) per tablet hours as needed for Pain. diazePAM Yes 10mg Take [address] [facility] (VALIUM) 10 2-19 by mouth Luke s - MG tablet 17:49: every 6 Medic al 47 (six) Center hours as needed for Anxiety. Procedures This patient has no known procedures. Encounters Start End Encounter Admission Attending Care Care Encounter Source Date/Time Date/Time Type Type Clinicians Facility Department ID 2020-10-30 2020-10-30 [place] [facility] [id number] 14:49:11 23:59:00 Encounter Yahaira Hughes [id number] [place] [id number] [place] [id number] 2020-10-30 2020-10-30 Orders Doctor ATUL [id number] 00:00:00 00:00:00 Only Unassigned, AMIE [id number] [place] [facility] [id number] Results Test Description Test Time Test Comments Results Result Comments Source SARS-COV2/RT-PCR ([facility]) 2020-02-25 10:48:00 Test Item Value Reference Range Interpretation Comme nts SARS-COV2/RT-PCR (test code = 3877867) Not Detected Not Detected, N egative SARS-COV-2 PERFORMING LAB (test code = [facility] 3482076) Negative results do not preclude SARS-CoV-2 infection and should not be used as the sole basis for patient management decisions. Negative results must be combined with clinical observations, patient history, and epidemiological information. A false negative result may occur if a specimen is improperly collected, transported or handled.The limit of detection for this assay is 250 copies/mL.This SARS CoV-2 test is a rapid, real-time RT-PCR test intended for the qualitative detection of nucleic acid from SARS-CoV-2 in a nasopharyngeal swab specimen collected from individuals suspected of COVID-19 by their healthcare provider.This test has not been Food and Drug Administration (FDA) cleared or approved and has been authorized by FDA under an Emergency Use Authorization (EUA). This EUA will be effective until the declaration that circumstances exist justifying the authorization of the emergency use of in vitro diagnostic tests for detection and/or diagnosis of COVID-19 is terminated under Section 564(b)(2) of the Act or the EUA is revoked under Section 564(g) of the Act.Fact Sheet for Healthcare Pro viders:https://www.Hair Scynce.[employer]or/Documents/Xpert%20Xpress%20SARS%20CoV-2/Fact%20Sh eets/302-2753%54UJVP-NGH-8%20HEALTHCARE%20PROVIDERS%20FACT%20SHEET.pdfFact Sheet for Healthcare Patients:https://www.Domain Apps.[employer]iacor/Documents/Xpert%20Xpress%20SARS%20CoV-2/Fact%20Sheets/302-3801%20SARS-COV -2%20PATIENT%20FACT%20SHEET.pdfPerforming Laboratory:[place] [address] [address] [place], [place] [id number] 12:24:00 Test Item Value Reference Range Interpretation Comments POC-GLUCOSE METER 255 mg/dL 70-110 H TESTED AT [place] [address] (BEAKER) (test code = [facility] 1538) [id number] POCT-GLUCOSE [id number] 08:35:00 Test Item Value Reference Range Interpretation Comments POC-GLUCOSE METER 127 mg/dL 70-110 H TESTED AT [place] [address] ([facility]) (test code = [facility] 1538) [id number] POCT-GLUCOSE [id number] 00:25:00 Test Item Value Reference Range Interpretation Comments POC-GLUCOSE METER 177 mg/dL 70-110 H TESTED AT [place] [address] ([facility]) (test code = [facility] 1538) 32490 HEMOGLOBIN [id number] 14:20:00 Test Item Value Reference Range Interpretation Comments HEMOGLOBIN A1C (BEAKER) (test code = 6.9 % 4.3-6.1 H 368) BASIC METABOLIC [id number] 07:34:00 Test Item Value Reference Range Interpretation Comments SODIUM (BEAKER) 139 meq/L 136-145 (test code = 381) POTASSIUM (BEAKER) 3.9 meq/L 3.5-5.1 (test code = 379) CHLORIDE (BEAKER) 106 meq/L 98-107 (test code = 382) CO2 (BEAKER) (test 23 meq/L 22-29 code = 355) BLOOD UREA NITROGEN 16 mg/dL 7-21 (BEAKER) (test code = 354) CREATININE (BEAKER) 0.77 mg/dL 0.57-1.25 (test code = 358) GLUCOSE RANDOM 126 mg/dL 70-105 H (BEAKER) (test code = 652) CALCIUM (BEAKER) 8.4 mg/dL 8.4-10.2 (test code = 697) EGFR (BEAKER) (test mL/min/1.73 INSUFFIC IENT CLINICAL code = 1092) sq m DATA TO CALCULA TE ESTIMATED GFR. CBC W/PLT COUNT & AUTO [id number] 06:38:00 Test Item Value Reference Range Interpretation Comments WHITE BLOOD CELL COUNT (BEAKER) 5.9 K/ L 3.5-10.5 (test code = 775) RED BLOOD CELL COUNT (BEAKER) 2.75 M/ L 4.63-6.08 L (test code = 761) HEMOGLOBIN (BEAKER) (test code = 7.6 GM/DL 13.7-17.5 L 410) HEMATOCRIT (BEAKER) (test code = 25.2 % 40.1-51.0 L 411) MEAN CORPUSCULAR VOLUME (BEAKER) 91.6 fL 79.0-92.2 (test code = 753) MEAN CORPUSCULAR HEMOGLOBIN 27.6 pg 25.7-32.2 (BEAKER) (test code = 751) MEAN CORPUSCULAR HEMOGLOBIN CONC 30.2 GM/DL 32.3-36.5 L (BEAKER) (test code = 752) RED CELL DISTRIBUTION WIDTH 14.7 % 11.6-14.4 H (BEAKER) (test code = 412) PLATELET COUNT (BEAKER) (test 209 K/CU MM 150-450 code = 756) MEAN PLATELET VOLUME (BEAKER) 11.2 fL 9.4-12.4 (test code = 754) NUCLEATED RED BLOOD CELLS 0 /100 WBC 0-0 (BEAKER) (test code = 413) NEUTROPHILS RELATIVE PERCENT 64 % (BEAKER) (test code = 429) LYMPHOCYTES RELATIVE PERCENT 25 % (BEAKER) (test code = 430) MONOCYTES RELATIVE PERCENT 6 % (BEAKER) (test code = 431) EOSINOPHILS RELATIVE PERCENT 4 % (BEAKER) (test code = 432) BASOPHILS RELATIVE PERCENT 0 % (BEAKER) (test code = 437) NEUTROPHILS ABSOLUTE COUNT 3.76 K/ L 1.78-5.38 (BEAKER) (test code = 670) LYMPHOCYTES ABSOLUTE COUNT 1.49 K/ L 1.32-3.57 (BEAKER) (test code = 414) MONOCYTES ABSOLUTE COUNT (BEAKER) 0.35 K/ L 0.30-0.82 (test code = 415) EOSINOPHILS ABSOLUTE COUNT 0.21 K/ L 0.04-0.54 (BEAKER) (test code = 416) BASOPHILS ABSOLUTE COUNT (BEAKER) 0.01 K/ L 0.01-0.08 (test code = 417) IMMATURE GRANULOCYTES-RELATIVE 1 % 0-1 PERCENT (BEAKER) (test code = 2801) POCT-GLUCOSE [id number] 21:40:00 Test Item Value Reference Range Interpretation Comments POC-GLUCOSE METER 171 mg/dL 70-[address] [facility] 6720 ([facility]) (test code = [facility] Sen [facility] 1538) [address] POCT-GLUCOSE [id number] 18:53:00 Test Item Value Reference Range Interpretation Comments POC-GLUCOSE METER 136 mg/dL 70-[address] [facility] 6720 ([facility]) (test code = [facility] 1538) [address] BASIC METABOLIC [id number] 05:58:00 Test Item Value Reference Range Interpretation Comments SODIUM (BEAKER) 139 meq/L 136-145 (test code = 381) POTASSIUM (BEAKER) 4.3 meq/L 3.5-5.1 (test code = 379) CHLORIDE (BEAKER) 106 meq/L 98-107 (test code = 382) CO2 (BEAKER) (test 25 meq/L 22-29 code = 355) BLOOD UREA NITROGEN 19 mg/dL 7-21 (BEAKER) (test code = 354) CREATININE (BEAKER) 0.74 mg/dL 0.57-1.25 (test code = 358) GLUCOSE RANDOM 132 mg/dL 70-105 H (BEAKER) (test code = 652) CALCIUM (BEAKER) 8.3 mg/dL 8.4-10.2 L (test code = 697) EGFR (BEAKER) (test mL/min/1.73 INSUFFIC IENT CLINICAL code = 1092) sq m DATA TO CALCULA TE ESTIMATED GFR. [id number] 05:57:00 Test Item Value Reference Range Interpretation Comments MAGNESIUM (BEAKER) (test code = 1.9 mg/dL 1.6-2.6 627) CBC W/PLT COUNT & AUTO [id number] 05:11:00 Test Item Value Reference Range Interpretation Comments WHITE BLOOD CELL COUNT (BEAKER) 7.4 K/ L 3.5-10.5 (test code = 775) RED BLOOD CELL COUNT (BEAKER) 2.76 M/ L 4.63-6.08 L (test code = 761) HEMOGLOBIN (BEAKER) (test code = 7.7 GM/DL 13.7-17.5 L 410) HEMATOCRIT (BEAKER) (test code = 24.4 % 40.1-51.0 L 411) MEAN CORPUSCULAR VOLUME (BEAKER) 88.4 fL 79.0-92.2 (test code = 753) MEAN CORPUSCULAR HEMOGLOBIN 27.9 pg 25.7-32.2 (BEAKER) (test code = 751) MEAN CORPUSCULAR HEMOGLOBIN CONC 31.6 GM/DL 32.3-36.5 L (BEAKER) (test code = 752) RED CELL DISTRIBUTION WIDTH 14.3 % 11.6-14.4 (BEAKER) (test code = 412) PLATELET COUNT (BEAKER) (test 162 K/CU MM 150-450 code = 756) MEAN PLATELET VOLUME (BEAKER) 11.4 fL 9.4-12.4 (test code = 754) NUCLEATED RED BLOOD CELLS 0 /100 WBC 0-0 (BEAKER) (test code = 413) NEUTROPHILS RELATIVE PERCENT 68 % (BEAKER) (test code = 429) LYMPHOCYTES RELATIVE PERCENT 22 % (BEAKER) (test code = 430) MONOCYTES RELATIVE PERCENT 7 % (BEAKER) (test code = 431) EOSINOPHILS RELATIVE PERCENT 3 % (BEAKER) (test code = 432) BASOPHILS RELATIVE PERCENT 0 % (BEAKER) (test code = 437) NEUTROPHILS ABSOLUTE COUNT 5.05 K/ L 1.78-5.38 (BEAKER) (test code = 670) LYMPHOCYTES ABSOLUTE COUNT 1.62 K/ L 1.32-3.57 (BEAKER) (test code = 414) MONOCYTES ABSOLUTE COUNT (BEAKER) 0.49 K/ L 0.30-0.82 (test code = 415) EOSINOPHILS ABSOLUTE COUNT 0.22 K/ L 0.04-0.54 (BEAKER) (test code = 416) BASOPHILS ABSOLUTE COUNT (BEAKER) 0.01 K/ L 0.01-0.08 (test code = 417) IMMATURE GRANULOCYTES-RELATIVE 0 % 0-1 PERCENT (BEAKER) (test code = 2801) POCT-GLUCOSE [id number] 21:45:00 Test Item Value Reference Range Interpretation Comments POC-GLUCOSE METER 177 mg/dL 70-[address] [facility] 6720 (BEAKER) (test code = [place] 1538) [id number] POCT-GLUCOSE [id number] 18:49:00 Test Item Value Reference Range Interpretation Comments POC-GLUCOSE METER 216 mg/dL 70-[address] [facility] 6720 ([facility]) (test code = SADA Chatterjee [place] 1538) [address] POCT-GLUCOSE [id number] 09:56:00 Test Item Value Reference Range Interpretation Comments POC-GLUCOSE METER 202 mg/dL 70-110 H TESTED AT [place] [address] ([facility]) (test code = SADA Chatterjee [facility] 1538) [address] [id number] 09:37:00 Test Item Value Reference Range Interpretation Comments PROTIME (BEAKER) (test code = 14.5 seconds 11.7-14.7 759) INR (BEAKER) (test code = 370) 1.1 <=5.9 PARTIAL THROMBOPLASTIN TIME 32.4 seconds 22.5-36.0 (BEAKER) (test code = 760) RECOMMENDED COUMADIN/WARFARIN INR THERAPY RANGESSTANDARD DOSE: 2.0 - 3.0 Includes: PROPHYLAXIS forvenous thrombosis, systemic embolization; TREATMENT for venous thrombosis and/or pulmonary embolus.HIGH RISK: Target INR is 2.5-3.5 for patients with mechanical heart valves.BASIC METABOLIC [id number] 09:24:00 Test Item Value Reference Range Interpretation Comments SODIUM (BEAKER) 138 meq/L 136-145 (test code = 381) POTASSIUM (BEAKER) 3.7 meq/L 3.5-5.1 (test code = 379) CHLORIDE (BEAKER) 103 meq/L 98-107 (test code = 382) CO2 (BEAKER) (test 27 meq/L 22-29 code = 355) BLOOD UREA NITROGEN 17 mg/dL 7-21 (BEAKER) (test code = 354) CREATININE (BEAKER) 0.80 mg/dL 0.57-1.25 (test code = 358) GLUCOSE RANDOM 162 mg/dL 70-105 H (BEAKER) (test code = 652) CALCIUM (BEAKER) 8.7 mg/dL 8.4-10.2 (test code = 697) EGFR (BEAKER) (test mL/min/1.73 INSUFFIC IENT CLINICAL code = 1092) sq m DATA TO CALCULA TE ESTIMATED GFR. [id number] 09:16:00 Test Item Value Reference Range Interpretation Comments MAGNESIUM (BEAKER) (test code = 1.8 mg/dL 1.6-2.6 627) CBC W/PLT COUNT & AUTO [id number] 08:53:00 Test Item Value Reference Range Interpretation Comments WHITE BLOOD CELL COUNT (BEAKER) 8.5 K/ L 3.5-10.5 (test code = 775) RED BLOOD CELL COUNT (BEAKER) 2.85 M/ L 4.63-6.08 L (test code = 761) HEMOGLOBIN (BEAKER) (test code = 8.0 GM/DL 13.7-17.5 L 410) HEMATOCRIT (BEAKER) (test code = 25.2 % 40.1-51.0 L 411) MEAN CORPUSCULAR VOLUME (BEAKER) 88.4 fL 79.0-92.2 (test code = 753) MEAN CORPUSCULAR HEMOGLOBIN 28.1 pg 25.7-32.2 (BEAKER) (test code = 751) MEAN CORPUSCULAR HEMOGLOBIN CONC 31.7 GM/DL 32.3-36.5 L (BEAKER) (test code = 752) RED CELL DISTRIBUTION WIDTH 14.1 % 11.6-14.4 (BEAKER) (test code = 412) PLATELET COUNT (BEAKER) (test 140 K/CU MM 150-450 L code = 756) MEAN PLATELET VOLUME (BEAKER) 11.5 fL 9.4-12.4 (test code = 754) NUCLEATED RED BLOOD CELLS 0 /100 WBC 0-0 (BEAKER) (test code = 413) NEUTROPHILS RELATIVE PERCENT 67 % (BEAKER) (test code = 429) LYMPHOCYTES RELATIVE PERCENT 24 % (BEAKER) (test code = 430) MONOCYTES RELATIVE PERCENT 7 % (BEAKER) (test code = 431) EOSINOPHILS RELATIVE PERCENT 2 % (BEAKER) (test code = 432) BASOPHILS RELATIVE PERCENT 0 % (BEAKER) (test code = 437) NEUTROPHILS ABSOLUTE COUNT 5.67 K/ L 1.78-5.38 H (BEAKER) (test code = 670) LYMPHOCYTES ABSOLUTE COUNT 2.08 K/ L 1.32-3.57 (BEAKER) (test code = 414) MONOCYTES ABSOLUTE COUNT (BEAKER) 0.58 K/ L 0.30-0.82 (test code = 415) EOSINOPHILS ABSOLUTE COUNT 0.14 K/ L 0.04-0.54 (BEAKER) (test code = 416) BASOPHILS ABSOLUTE COUNT (BEAKER) 0.01 K/ L 0.01-0.08 (test code = 417) IMMATURE GRANULOCYTES-RELATIVE 0 % 0-1 PERCENT ([facility]) (test code = 2801) POCT-GLUCOSE [id number] 21:32:00 Test Item Value Reference Range Interpretation Comments POC-GLUCOSE METER 200 mg/dL 70-110 H TESTED AT [place] [address] ([facility]) (test code = [facility] 1538) [id number] POCT-GLUCOSE [id number] 17:42:00 Test Item Value Reference Range Interpretation Comments POC-GLUCOSE METER 191 mg/dL 70-110 H TESTED AT [place] [address] ([facility]) (test code = [facility] 1538) [address] HEMOGLOBIN AND [id number] 15:51:00 Test Item Value Reference Range Interpretation Comments HEMOGLOBIN ([facility]) (test code = 7.4 GM/DL 13.7-17.5 L 410) HEMATOCRIT ([facility]) (test code = 23.9 % 40.1-51.0 L 411) POCT-GLUCOSE [id number] 13:02:00 Test Item Value Reference Range Interpretation Comments POC-GLUCOSE METER 190 mg/dL 70-110 H TESTED AT [place] [address] ([facility]) (test code = [facility] 1538) [id number] POCT-GLUCOSE [id number] 08:10:00 Test Item Value Reference Range Interpretation Comments POC-GLUCOSE METER 176 mg/dL 70-110 H TESTED AT [place] [address] ([facility]) (test code = [facility] 1538) [address] RAD, CHEST, 1 VIEW, NON [id number] 07:47:00Reason for exam:->pl effusionShould this be performed at the bedside?->YesFINAL REPORT Chest one view compared to November 30 Discussion: Mild pulmonary congestion and probable left lower lung atelectasis. I could not exclude small left effusion. No pneumothorax. IMPRESSIONS: Similar cardiopulmonary appearance. Signed: Atul Mcdonough Verified Date/Time: 12/01/2017 07:47:00 [facility] [place] [place] BASIC METABOLIC [id number] 05:25:00 Test Item Value Reference Range Interpretation Comments SODIUM (BEAKER) 138 meq/L 136-145 (test code = 381) POTASSIUM (BEAKER) 3.9 meq/L 3.5-5.1 (test code = 379) CHLORIDE (BEAKER) 106 meq/L 98-107 (test code = 382) CO2 (BEAKER) (test 26 meq/L 22-29 code = 355) BLOOD UREA NITROGEN 13 mg/dL 7-21 (BEAKER) (test code = 354) CREATININE (BEAKER) 0.75 mg/dL 0.57-1.25 (test code = 358) GLUCOSE RANDOM 157 mg/dL 70-105 H (BEAKER) (test code = 652) CALCIUM (BEAKER) 8.2 mg/dL 8.4-10.2 L (test code = 697) EGFR (BEAKER) (test mL/min/1.73 INSUFFIC IENT CLINICAL code = 1092) sq m DATA TO CALCULA TE ESTIMATED GFR. [id number] 05:18:00 Test Item Value Reference Range Interpretation Comments MAGNESIUM (BEAKER) (test code = 1.8 mg/dL 1.6-2.6 627) CBC W/PLT COUNT & AUTO [id number] 04:59:00 Test Item Value Reference Range Interpretation Comments WHITE BLOOD CELL COUNT (BEAKER) 7.8 K/ L 3.5-10.5 (test code = 775) RED BLOOD CELL COUNT (BEAKER) 2.55 M/ L 4.63-6.08 L (test code = 761) HEMOGLOBIN (BEAKER) (test code = 7.1 GM/DL 13.7-17.5 L 410) HEMATOCRIT (BEAKER) (test code = 22.5 % 40.1-51.0 L 411) MEAN CORPUSCULAR VOLUME (BEAKER) 88.2 fL 79.0-92.2 (test code = 753) MEAN CORPUSCULAR HEMOGLOBIN 27.8 pg 25.7-32.2 (BEAKER) (test code = 751) MEAN CORPUSCULAR HEMOGLOBIN CONC 31.6 GM/DL 32.3-36.5 L (BEAKER) (test code = 752) RED CELL DISTRIBUTION WIDTH 14.2 % 11.6-14.4 (BEAKER) (test code = 412) PLATELET COUNT (BEAKER) (test 113 K/CU MM 150-450 L code = 756) MEAN PLATELET VOLUME (BEAKER) 11.9 fL 9.4-12.4 (test code = 754) NUCLEATED RED BLOOD CELLS 0 /100 WBC 0-0 (BEAKER) (test code = 413) NEUTROPHILS RELATIVE PERCENT 72 % (BEAKER) (test code = 429) LYMPHOCYTES RELATIVE PERCENT 18 % (BEAKER) (test code = 430) MONOCYTES RELATIVE PERCENT 9 % (BEAKER) (test code = 431) EOSINOPHILS RELATIVE PERCENT 1 % (BEAKER) (test code = 432) BASOPHILS RELATIVE PERCENT 0 % (BEAKER) (test code = 437) NEUTROPHILS ABSOLUTE COUNT 5.64 K/ L 1.78-5.38 H (BEAKER) (test code = 670) LYMPHOCYTES ABSOLUTE COUNT 1.36 K/ L 1.32-3.57 (BEAKER) (test code = 414) MONOCYTES ABSOLUTE COUNT (BEAKER) 0.70 K/ L 0.30-0.82 (test code = 415) EOSINOPHILS ABSOLUTE COUNT 0.05 K/ L 0.04-0.54 (BEAKER) (test code = 416) BASOPHILS ABSOLUTE COUNT (BEAKER) 0.01 K/ L 0.01-0.08 (test code = 417) IMMATURE GRANULOCYTES-RELATIVE 0 % 0-1 PERCENT (BEAKER) (test code = 2801) POCT-GLUCOSE [id number] 22:11:00 Test Item Value Reference Range Interpretation Comments POC-GLUCOSE METER 190 mg/dL 70-[address] [facility] 6720 (BEAKER) (test code = S[place] 1538) [id number] POCT-GLUCOSE [id number] 16:58:00 Test Item Value Reference Range Interpretation Comments POC-GLUCOSE METER 193 mg/dL 70-110 H TESTED AT [place] [address] ([facility]) (test code = SADA Chatterjee [place] 1538) [id number] CBC (HEMOGRAM ONLY)2017-11-30 13:05:00 Test Item Value Reference Range Interpretation Comments WHITE BLOOD CELL COUNT (BEAKER) 9.1 K/ L 3.5-10.5 (test code = 775) RED BLOOD CELL COUNT (BEAKER) 3.01 M/ L 4.63-6.08 L (test code = 761) HEMOGLOBIN (BEAKER) (test code = 8.3 GM/DL 13.7-17.5 L 410) HEMATOCRIT (BEAKER) (test code = 26.5 % 40.1-51.0 L 411) MEAN CORPUSCULAR VOLUME (BEAKER) 88.0 fL 79.0-92.2 (test code = 753) MEAN CORPUSCULAR HEMOGLOBIN 27.6 pg 25.7-32.2 (BEAKER) (test code = 751) MEAN CORPUSCULAR HEMOGLOBIN CONC 31.3 GM/DL 32.3-36.5 L (BEAKER) (test code = 752) RED CELL DISTRIBUTION WIDTH 14.1 % 11.6-14.4 (BEAKER) (test code = 412) PLATELET COUNT ([facility]) (test 128 K/CU MM 150-450 L code = 756) MEAN PLATELET VOLUME (BEAKER) 11.8 fL 9.4-12.4 (test code = 754) NUCLEATED RED BLOOD CELLS 0 /100 WBC 0-0 ([facility]) (test code = 413) POCT-GLUCOSE [id number] 12:06:00 Test Item Value Reference Range Interpretation Comments POC-GLUCOSE METER 142 mg/dL 70-110 H TESTED AT [place] [address] ([facility]) (test code = SADA Chatterjee [facility] 1538) [id number] POCT-GLUCOSE [id number] 09:23:00 Test Item Value Reference Range Interpretation Comments POC-GLUCOSE METER 108 mg/dL 70-110 TESTED AT [place] [address] ([facility]) (test code = MEAGANFOUZIA Sen [place] 1538) [id number] 05:44:00 Test Item Value Reference Range Interpretation Comments ACTIVATED CLOTTING TIME 103 sec TEST ED AT [place] [address] ([facility]) (test code = SADA Chatterjee [place] 441) [id number] 05:44:00 Test Item Value Reference Range Interpretation Comments ACTIVATED CLOTTING TIME 439 sec TEST ED AT [place] [address] ([facility]) (test code = SADA [place] [address]) [id number] 05:44:00 Test Item Value Reference Range Interpretation Comments ACTIVATED CLOTTING TIME 604 sec TEST ED AT [place] [address] ([facility]) (test code = SADA [place] [address]) [id number] 05:44:00 Test Item Value Reference Range Interpretation Comments ACTIVATED CLOTTING TIME 444 sec TEST ED AT [place] [address] ([facility]) (test code = SADA [place] [address]) [id number] POCT-GLUCOSE [id number] 04:45:00 Test Item Value Reference Range Interpretation Comments POC-GLUCOSE METER 122 mg/dL 70-110 H TESTED AT [place] [address] ([facility]) (test code = SADA [place] 1538) [address] RAD, CHEST, 1 VIEW, NON [id number] 04:40:00while patient is intubated or has chest [...] MDReport Verified Date/Time: 11/30/2017 04:40:05 Reading Location: [address] Reading Room CBC W/PLT COUNT & AUTO [id number] 03:49:00 Test Item Value Reference Range Interpretation Comments WHITE BLOOD CELL COUNT ([facility]) 7.6 K/ L 3.5-10.5 (test code = 775) RED BLOOD CELL COUNT (BEAKER) 3.09 M/ L 4.63-6.08 L (test code = 761) HEMOGLOBIN (BEAKER) (test code = 8.5 GM/DL 13.7-17.5 L 410) HEMATOCRIT (BEAKER) (test code = 27.4 % 40.1-51.0 L 411) MEAN CORPUSCULAR VOLUME (BEAKER) 88.7 fL 79.0-92.2 (test code = 753) MEAN CORPUSCULAR HEMOGLOBIN 27.5 pg 25.7-32.2 (BEAKER) (test code = 751) MEAN CORPUSCULAR HEMOGLOBIN CONC 31.0 GM/DL 32.3-36.5 L (BEAKER) (test code = 752) RED CELL DISTRIBUTION WIDTH 14.2 % 11.6-14.4 (BEAKER) (test code = 412) PLATELET COUNT (BEAKER) (test 123 K/CU MM 150-450 L code = 756) MEAN PLATELET VOLUME (BEAKER) 11.3 fL 9.4-12.4 (test code = 754) NUCLEATED RED BLOOD CELLS 0 /100 WBC 0-0 (BEAKER) (test code = 413) NEUTROPHILS RELATIVE PERCENT 84 % (BEAKER) (test code = 429) LYMPHOCYTES RELATIVE PERCENT 9 % (BEAKER) (test code = 430) MONOCYTES RELATIVE PERCENT 6 % (BEAKER) (test code = 431) EOSINOPHILS RELATIVE PERCENT 0 % (BEAKER) (test code = 432) BASOPHILS RELATIVE PERCENT 0 % (BEAKER) (test code = 437) NEUTROPHILS ABSOLUTE COUNT 6.44 K/ L 1.78-5.38 H (BEAKER) (test code = 670) LYMPHOCYTES ABSOLUTE COUNT 0.65 K/ L 1.32-3.57 L (BEAKER) (test code = 414) MONOCYTES ABSOLUTE COUNT (BEAKER) 0.49 K/ L 0.30-0.82 (test code = 415) EOSINOPHILS ABSOLUTE COUNT 0.01 K/ L 0.04-0.54 L (BEAKER) (test code = 416) BASOPHILS ABSOLUTE COUNT (BEAKER) 0.01 K/ L 0.01-0.08 (test code = 417) IMMATURE GRANULOCYTES-RELATIVE 1 % 0-1 PERCENT (BEAKER) (test code = 2801) BASIC METABOLIC [id number] 03:49:00 Test Item Value Reference Range Interpretation Comments SODIUM (BEAKER) 141 meq/L 136-145 (test code = 381) POTASSIUM (BEAKER) 4.0 meq/L 3.5-5.1 (test code = 379) CHLORIDE (BEAKER) 110 meq/L 98-107 H (test code = 382) CO2 (BEAKER) (test 24 meq/L 22-29 code = 355) BLOOD UREA NITROGEN 10 mg/dL 7-21 (BEAKER) (test code = 354) CREATININE (BEAKER) 0.71 mg/dL 0.57-1.25 (test code = 358) GLUCOSE RANDOM 147 mg/dL 70-105 H (BEAKER) (test code = 652) CALCIUM (BEAKER) 7.8 mg/dL 8.4-10.2 L (test code = 697) EGFR (BEAKER) (test mL/min/1.73 INSUFFIC IENT CLINICAL code = 1092) sq m DATA TO CALCULA TE ESTIMATED GFR. [id number] 03:42:00 Test Item Value Reference Range Interpretation Comments MAGNESIUM (BEAKER) (test code = 1.9 mg/dL 1.6-2.6 627) POCT-GLUCOSE [id number] 03:04:00 Test Item Value Reference Range Interpretation Comments POC-GLUCOSE METER 143 mg/dL 70-[address] [facility] 6720 (BEAKER) (test code = [place] 1538) [address] POCT-GLUCOSE [id number] 02:04:00 Test Item Value Reference Range Interpretation Comments POC-GLUCOSE METER 146 mg/dL 70-[address] [facility] 6720 (BEAKER) (test code = SADA Chatterjee [facility] 1538) [address] POCT-GLUCOSE [id number] 01:04:00 Test Item Value Reference Range Interpretation Comments POC-GLUCOSE METER 203 mg/dL 70-[address] [facility] 6720 (BEAKER) (test code = SADA Chatterjee [facility] 1538) [address] [id number] 01:03:00 Test Item Value Reference Range Interpretation Comments POTASSIUM (BEAKER) (test code = 4.3 meq/L 3.5-5.1 379) [id number] 01:03:00 Test Item Value Reference Range Interpretation Comments MAGNESIUM (BEAKER) (test code = 2.1 mg/dL 1.6-2.6 627) CALCIUM, [id number] 00:29:00 Test Item Value Reference Range Interpretation Comments CALCIUM IONIZED (BEAKER) (test 1.08 mmol/L 1.12-1.27 L code = 698) PH, BLOOD (BEAKER) (test code = 7.39 1810) POCT-GLUCOSE [id number] 00:09:00 Test Item Value Reference Range Interpretation Comments POC-GLUCOSE METER 214 mg/dL 70-[address] [facility] 6720 (BEAKER) (test code = [facility] 1538) [address] POCT-GLUCOSE [id number] 22:51:00 Test Item Value Reference Range Interpretation Comments POC-GLUCOSE METER 179 mg/dL 70-[address] [facility] 6720 (BEAKER) (test code = [facility] [place] 1538) [address] POCT-GLUCOSE [id number] 22:13:00 Test Item Value Reference Range Interpretation Comments POC-GLUCOSE METER 206 mg/dL 70-[address] [facility] 6720 (BEAKER) (test code = [facility] 1538) [address] BLOOD GAS, [id number] 21:08:00 Test Item Value Reference Range Interpretation Comments PH ARTERIAL (BEAKER) (test code = 7.35 7.35-7.45 383) PCO2 ARTERIAL (BEAKER) (test code 43 mmHg 35-45 = 384) PO2 ARTERIAL (BEAKER) (test code 136 mmHg 80-90 H = 385) O2 SATURATION ARTERIAL (BEAKER) 98.6 % 96.0-97.0 H (test code = 386) HCO3 ARTERIAL (BEAKER) (test code 23 mmol/L 21-29 = 388) BASE EXCESS ARTERIAL (BEAKER) -2.1 mmol/L -2.0-3.0 L (test code = 387) PATIENT TEMPERATURE (BEAKER) 37.1 C (test code = 1818) FIO2 (BEAKER) (test code = 1819) 36.0 % Post extubation ABGPOCT-GLUCOSE [id number] 21:03:00 Test Item Value Reference Range Interpretation Comments POC-GLUCOSE METER 197 mg/dL 70-110 H TESTED AT [place] [address] (BEAKER) (test code = SADA Chatterjee [place] 1538) [address] POCT-GLUCOSE [id number] 20:47:00 Test Item Value Reference Range Interpretation Comments POC-GLUCOSE METER 197 mg/dL 70-110 H TESTED AT [place] [address] (BEAKER) (test code = SADA Chatterjee [place] 1538) [address] [id number] 20:10:00 Test Item Value Reference Range Interpretation Comments MAGNESIUM (BEAKER) (test code = 2.3 mg/dL 1.6-2.6 627) Check Serum Magnesium level 2 hours after IV magnesium replacement.POCT-GLUCOSE [id number] 20:02:00 Test Item Value Reference Range Interpretation Comments POC-GLUCOSE METER 234 mg/dL 70-110 H TESTED AT [place] [address] (BEAKER) (test code = SADA Chatterjee [place] 1538) [address] BLOOD GAS, [id number] 19:57:00 Test Item Value Reference Range Interpretation Comments PH ARTERIAL (BEAKER) (test code = 7.36 7.35-7.45 383) PCO2 ARTERIAL (BEAKER) (test code 41 mmHg 35-45 = 384) PO2 ARTERIAL (BEAKER) (test code 121 mmHg 80-90 H = 385) O2 SATURATION ARTERIAL (BEAKER) 98.2 % 96.0-97.0 H (test code = 386) HCO3 ARTERIAL (BEAKER) (test code 23 mmol/L 21-29 = 388) BASE EXCESS ARTERIAL (BEAKER) -2.7 mmol/L -2.0-3.0 L (test code = 387) PATIENT TEMPERATURE (BEAKER) 37.2 C (test code = 1818) FIO2 (BEAKER) (test code = 1819) 40.0 % POCT-GLUCOSE [id number] 18:44:00 Test Item Value Reference Range Interpretation Comments POC-GLUCOSE METER 209 mg/dL 70-110 H TESTED AT [place] [address] (BEAKER) (test code = SADA Chatterjee [place] 1538) [address] BASIC METABOLIC [id number] 16:13:00 Test Item Value Reference Range Interpretation Comments SODIUM (BEAKER) 141 meq/L 136-145 (test code = 381) POTASSIUM (BEAKER) 4.4 meq/L 3.5-5.1 Specimen slightly (test code = 379) hemolyzed CHLORIDE (BEAKER) 112 meq/L 98-107 H (test code = 382) CO2 (BEAKER) (test 22 meq/L 22-29 code = 355) BLOOD UREA NITROGEN 13 mg/dL 7-21 (BEAKER) (test code = 354) CREATININE (BEAKER) 0.73 mg/dL 0.57-1.25 Specimen slightly (test code = 358) hemolyzed GLUCOSE RANDOM 179 mg/dL 70-105 H (BEAKER) (test code = 652) CALCIUM (BEAKER) 7.5 mg/dL 8.4-10.2 L (test code = 697) EGFR (BEAKER) (test mL/min/1.73 INSUFFIC IENT CLINICAL code = 1092) sq m DATA TO CALCULA TE ESTIMATED GFR. RAD, CHEST, 1 VIEW, NON [id number] 16:13:00Reason for exam:->intubated, chest tubesShould this be [...] changes are seen in the spine. Signed: Leticia Maineport Verified Date/Time: 11/29/2017 16:13:26 Reading Location: [facility] [address] Radiology Reading Room APTT 2017-11-29 16:12:00 Test Item Value Reference Range Interpretation Comments PARTIAL THROMBOPLASTIN TIME 31.4 seconds 22.5-36.0 (BEAKER) (test code = 760) PROTHROMBIN [id number] 16:11:00 Test Item Value Reference Range Interpretation Comments PROTIME (BEAKER) (test code = 17.6 seconds 11.7-14.7 H 759) INR (BEAKER) (test code = 370) 1.5 <=5.9 RECOMMENDED COUMADIN/WARFARIN INR THERAPY RANGESSTANDARD DOSE: 2.0 - 3.0 Includes: PROPHYLAXIS forvenous thrombosis, systemic embolization; TREATMENT for venous thrombosis and/or pulmonary embolus.HIGH RISK: Target INR is 2.5-3.5 for patients with mechanical heart valves.[id number] 16:11:00 Test Item Value Reference Range Interpretation Comments MAGNESIUM (BEAKER) 1.7 mg/dL 1.6-2.6 Specimen slightly (test code = 627) hemolyzed LACTIC ACID, ARTERIAL, WHOLE [id number] 16:06:00 Test Item Value Reference Range Interpretation Comments LACTATE BLOOD 1.2 mmol/L 0.5-2.2 Specimen sligh tly ARTERIAL (2) (BEAKER) hemoly zed (test code = 2874) Effective 02/18/2016: Units/Reference Range ChangeNew: 0.5-2.2 mmol/L Previous: 5-20 mg/dLCBC W/PLT COUNT & AUTO [id number] 16:02:00 Test Item Value Reference Range Interpretation Comments WHITE BLOOD CELL COUNT (BEAKER) 11.5 K/ L 3.5-10.5 H (test code = 775) RED BLOOD CELL COUNT (BEAKER) 3.42 M/ L 4.63-6.08 L (test code = 761) HEMOGLOBIN (BEAKER) (test code = 9.6 GM/DL 13.7-17.5 L 410) HEMATOCRIT (BEAKER) (test code = 30.6 % 40.1-51.0 L 411) MEAN CORPUSCULAR VOLUME (BEAKER) 89.5 fL 79.0-92.2 (test code = 753) MEAN CORPUSCULAR HEMOGLOBIN 28.1 pg 25.7-32.2 (BEAKER) (test code = 751) MEAN CORPUSCULAR HEMOGLOBIN CONC 31.4 GM/DL 32.3-36.5 L (BEAKER) (test code = 752) RED CELL DISTRIBUTION WIDTH 14.0 % 11.6-14.4 (BEAKER) (test code = 412) PLATELET COUNT (BEAKER) (test 100 K/CU MM 150-450 L code = 756) MEAN PLATELET VOLUME (BEAKER) 10.7 fL 9.4-12.4 (test code = 754) NUCLEATED RED BLOOD CELLS 0 /100 WBC 0-0 (BEAKER) (test code = 413) NEUTROPHILS RELATIVE PERCENT 80 % (BEAKER) (test code = 429) LYMPHOCYTES RELATIVE PERCENT 11 % (BEAKER) (test code = 430) MONOCYTES RELATIVE PERCENT 8 % (BEAKER) (test code = 431) EOSINOPHILS RELATIVE PERCENT 0 % (BEAKER) (test code = 432) BASOPHILS RELATIVE PERCENT 0 % (BEAKER) (test code = 437) NEUTROPHILS ABSOLUTE COUNT 9.14 K/ L 1.78-5.38 H (BEAKER) (test code = 670) LYMPHOCYTES ABSOLUTE COUNT 1.25 K/ L 1.32-3.57 L (BEAKER) (test code = 414) MONOCYTES ABSOLUTE COUNT (BEAKER) 0.93 K/ L 0.30-0.82 H (test code = 415) EOSINOPHILS ABSOLUTE COUNT 0.05 K/ L 0.04-0.54 (BEAKER) (test code = 416) BASOPHILS ABSOLUTE COUNT (BEAKER) 0.02 K/ L 0.01-0.08 (test code = 417) IMMATURE GRANULOCYTES-RELATIVE 1 % 0-1 PERCENT (BEAKER) (test code = 2801) OXYGEN SATURATION, [id number] 15:54:00 Test Item Value Reference Range Interpretation Comments O2 SATURATION (MEASURED) (BEAKER) 64.9 % (test code = 1455) From distal port of IJ central venous catheterSODIUM NA-STAT [id number] 15:54:00 Test Item Value Reference Range Interpretation Comments SODIUM (BEAKER) (test code = 381) 138 meq/L 135-148 POTASSIUM-STAT [id number] 15:54:00 Test Item Value Reference Range Interpretation Comments POTASSIUM (BEAKER) (test code = 4.2 meq/L 3.6-5.5 379) BLOOD GAS, [id number] 15:54:00 Test Item Value Reference Range Interpretation Comments PH ARTERIAL (BEAKER) (test code = 7.33 7.35-7.45 L 383) PCO2 ARTERIAL (BEAKER) (test code 46 mmHg 35-45 H = 384) PO2 ARTERIAL (BEAKER) (test code 155 mmHg 80-90 H = 385) O2 SATURATION ARTERIAL (BEAKER) 98.9 % 96.0-97.0 H (test code = 386) HCO3 ARTERIAL (BEAKER) (test code 24 mmol/L 21-29 = 388) BASE EXCESS ARTERIAL (BEAKER) -2.4 mmol/L -2.0-3.0 L (test code = 387) PATIENT TEMPERATURE (BEAKER) 35.4 C (test code = 1818) FIO2 (BEAKER) (test code = 1819) 60.0 % CALCIUM, [id number] 15:54:00 Test Item Value Reference Range Interpretation Comments CALCIUM IONIZED (BEAKER) (test 1.06 mmol/L 1.12-1.27 L code = 698) PH, BLOOD (BEAKER) (test code = 7.31 1810) GLUCOSE-STAT [id number] 15:54:00 Test Item Value Reference Range Interpretation Comments GLUCOSE RANDOM (BEAKER) (test code 173 mg/dL 70-110 H = 652) HGB/HCT (H&H) - STAT [id number] 15:54:00 Test Item Value Reference Range Interpretation Comments HEMOGLOBIN (BEAKER) (test code = 10.3 g/dL 13.0-16.8 L 410) HEMATOCRIT (BEAKER) (test code = 30.0 % 40.0-50.0 L 411) THROMBOELASTOGRAPH (TEG)[id number] 15:16:00 Test Item Value Reference Range Interpretation Comments TEG ACTIVATED CLOTTING TIME 5.5 minutes 4.0-7.0 (BEAKER) (test code = 1407) TEG FIBRINOGEN ACTIVITY (BEAKER) 62.6 degrees 61.0-73.0 (test code = 1408) TEG PLT. AGGREGATION (BEAKER) 52.3 MM 55.0-65.0 L (test code = 1409) TGH ACTIVATED CLOTTING TIME 5.5 minutes 4.0-7.0 (BEAKER) (test code = 1411) TGH FIBRINOGEN ACTIVITY (BEAKER) 65.7 degrees 61.0-73.0 (test code = 1412) TGH PLT. AGGREGATION (BEAKER) 56.4 MM 55.0-65.0 (test code = 1413) PLATELET [id number] 14:50:00 Test Item Value Reference Range Interpretation Comments PLATELET COUNT (BEAKER) (test code 98 K/CU MM 150-450 L = 756) [id number] 14:27:00 Test Item Value Reference Range Interpretation Comments FIBRINOGEN LEVEL (BEAKER) (test 176 mg/dl 225-434 L code = 658) PROTHROMBIN [id number] 14:14:00 Test Item Value Reference Range Interpretation Comments PROTIME (BEAKER) (test code = 20.7 seconds 11.7-14.7 H 759) INR (BEAKER) (test code = 370) 1.8 <=5.9 RECOMMENDED COUMADIN/WARFARIN INR THERAPY RANGESSTANDARD DOSE: 2.0 - 3.0 Includes: PROPHYLAXIS forvenous thrombosis, systemic embolization; TREATMENT for venous thrombosis and/or pulmonary embolus.HIGH RISK: Target INR is 2.5-3.5 for patients with mechanical heart valves.[id number] 14:14:00 Test Item Value Reference Range Interpretation Comments PARTIAL THROMBOPLASTIN TIME 30.2 seconds 22.5-36.0 (BEAKER) (test code = 760) CALCIUM, [id number] 13:55:00 Test Item Value Reference Range Interpretation Comments CALCIUM IONIZED (BEAKER) (test 1.13 mmol/L 1.12-1.27 code = 698) PH, BLOOD (BEAKER) (test code = 7.30 1810) BLOOD GAS, [id number] 13:55:00 Test Item Value Reference Range Interpretation Comments PH ARTERIAL (BEAKER) (test code = 7.32 7.35-7.45 L 383) PCO2 ARTERIAL (BEAKER) (test code 49 mmHg 35-45 H = 384) PO2 ARTERIAL (BEAKER) (test code 358 mmHg 80-90 H = 385) O2 SATURATION ARTERIAL (BEAKER) 99.7 % 96.0-97.0 H (test code = 386) HCO3 ARTERIAL (BEAKER) (test code 25 mmol/L 21-29 = 388) BASE EXCESS ARTERIAL (BEAKER) -2.1 mmol/L -2.0-3.0 L (test code = 387) PATIENT TEMPERATURE (BEAKER) 36.0 C (test code = 1818) FIO2 (BEAKER) (test code = 1819) 100.0 % GLUCOSE-STAT [id number] 13:55:00 Test Item Value Reference Range Interpretation Comments GLUCOSE RANDOM (BEAKER) (test code 201 mg/dL 70-110 H = 652) HGB/HCT (H&H) - STAT [id number] 13:55:00 Test Item Value Reference Range Interpretation Comments HEMOGLOBIN (BEAKER) (test code = 9.7 g/dL 13.0-16.8 L 410) HEMATOCRIT (BEAKER) (test code = 29.0 % 40.0-50.0 L 411) SODIUM NA-STAT [id number] 13:54:00 Test Item Value Reference Range Interpretation Comments SODIUM (BEAKER) (test code = 381) 137 meq/L 135-148 POTASSIUM-STAT [id number] 13:54:00 Test Item Value Reference Range Interpretation Comments POTASSIUM (BEAKER) (test code = 3.9 meq/L 3.6-5.5 379) BLOOD GAS, [id number] 13:22:00 Test Item Value Reference Range Interpretation Comments PH ARTERIAL (BEAKER) (test code = 7.32 7.35-7.45 L 383) PCO2 ARTERIAL (BEAKER) (test code 50 mmHg 35-45 H = 384) PO2 ARTERIAL (BEAKER) (test code 284 mmHg 80-90 H = 385) O2 SATURATION ARTERIAL (BEAKER) 99.6 % 96.0-97.0 H (test code = 386) HCO3 ARTERIAL (BEAKER) (test code 25 mmol/L 21-29 = 388) BASE EXCESS ARTERIAL (BEAKER) -1.2 mmol/L -2.0-3.0 (test code = 387) PATIENT TEMPERATURE (BEAKER) 36.5 C (test code = 1818) FIO2 (BEAKER) (test code = 1819) 80.0 % GLUCOSE-STAT [id number] 13:22:00 Test Item Value Reference Range Interpretation Comments GLUCOSE RANDOM (BEAKER) (test code 191 mg/dL 70-110 H = 652) HGB/HCT (H&H) - STAT [id number] 13:22:00 Test Item Value Reference Range Interpretation Comments HEMOGLOBIN (BEAKER) (test code = 9.3 g/dL 13.0-16.8 L 410) HEMATOCRIT (BEAKER) (test code = 27.0 % 40.0-50.0 L 411) SODIUM NA-STAT [id number] 13:18:00 Test Item Value Reference Range Interpretation Comments SODIUM (BEAKER) (test code = 381) 136 meq/L 135-148 POTASSIUM-STAT [id number] 13:18:00 Test Item Value Reference Range Interpretation Comments POTASSIUM (BEAKER) (test code = 4.6 meq/L 3.6-5.5 379) BLOOD GAS, [id number] 12:39:00 Test Item Value Reference Range Interpretation Comments PH ARTERIAL (BEAKER) (test code = 7.40 7.35-7.45 383) PCO2 ARTERIAL (BEAKER) (test code 39 mmHg 35-45 = 384) PO2 ARTERIAL (BEAKER) (test code 191 mmHg 80-90 H = 385) O2 SATURATION ARTERIAL (BEAKER) 99.4 % 96.0-97.0 H (test code = 386) HCO3 ARTERIAL (BEAKER) (test code 25 mmol/L 21-29 = 388) BASE EXCESS ARTERIAL (BEAKER) -1.2 mmol/L -2.0-3.0 (test code = 387) PATIENT TEMPERATURE (BEAKER) 32.2 C (test code = 1818) FIO2 (BEAKER) (test code = 1819) 60.0 % SODIUM NA-STAT [id number] 12:39:00 Test Item Value Reference Range Interpretation Comments SODIUM (BEAKER) (test code = 381) 134 meq/L 135-148 L GLUCOSE-STAT [id number] 12:39:00 Test Item Value Reference Range Interpretation Comments GLUCOSE RANDOM (BEAKER) (test code 166 mg/dL 70-110 H = 652) HGB/HCT (H&H) - STAT [id number] 12:39:00 Test Item Value Reference Range Interpretation Comments HEMOGLOBIN (BEAKER) (test code = 9.9 g/dL 13.0-16.8 L 410) HEMATOCRIT (BEAKER) (test code = 29.0 % 40.0-50.0 L 411) POTASSIUM-STAT [id number] 12:38:00 Test Item Value Reference Range Interpretation Comments POTASSIUM (BEAKER) (test code = 4.4 meq/L 3.6-5.5 379) SODIUM NA-STAT [id number] 11:22:00 Test Item Value Reference Range Interpretation Comments SODIUM (BEAKER) (test code = 381) 140 meq/L 135-148 POTASSIUM-STAT [id number] 11:22:00 Test Item Value Reference Range Interpretation Comments POTASSIUM (BEAKER) (test code = 4.0 meq/L 3.6-5.5 379) HGB/HCT (H&H) - STAT [id number] 11:22:00 Test Item Value Reference Range Interpretation Comments HEMOGLOBIN (BEAKER) (test code = 14.5 g/dL 13.0-16.8 410) HEMATOCRIT (BEAKER) (test code = 43.0 % 40.0-50.0 411) BLOOD GAS, [id number] 11:22:00 Test Item Value Reference Range Interpretation Comments PH ARTERIAL (BEAKER) (test code = 7.38 7.35-7.45 383) PCO2 ARTERIAL (BEAKER) (test code 49 mmHg 35-45 H = 384) PO2 ARTERIAL (BEAKER) (test code = 295 mmHg 80-90 H 385) O2 SATURATION ARTERIAL (BEAKER) 99.7 % 96.0-97.0 H (test code = 386) HCO3 ARTERIAL (BEAKER) (test code 28 mmol/L 21-29 = 388) BASE EXCESS ARTERIAL (BEAKER) 1.7 mmol/L -2.0-3.0 (test code = 387) PATIENT TEMPERATURE (BEAKER) (test 35.7 C code = 1818) FIO2 (BEAKER) (test code = 1819) 100.0 % GLUCOSE-STAT [id number] 11:22:00 Test Item Value Reference Range Interpretation Comments GLUCOSE RANDOM (BEAKER) (test code 112 mg/dL 70-110 H = 652) PLATELET AGGREGATION: FUNCTION [id number] 09:52:00 Test Item Value Reference Range Interpretation Comments WEAK ADP 68 % 60-91 RESULT(BEAKER) (test code = 2135) PLATELET FUNCTION 60-100% indicates SCREEN INTERP (BEAKER) normal platelet (test code = 2173) function [id number] Batsheva Llamas MD (BEAKER) (test code = (electronic signature) 2942) PLATELET COUNT AGG 176 K/CU MM 150-450 (BEAKER) (test code = 2656) RAD, CHEST, 1 VIEW, NON [id number] 08:51:00Reason for exam:->preop for CV surgeryFINAL REPORT INDICATION: preop for CV surgery COMPARISON: None. TECHNIQUE: Chest radiograph, single view, portable technique. FINDINGS / IMPRESSION: There is suggestion of mild pulmonary venous congestion. No interstitial or alveolar edema. Mild tortuosity of the thoracic aorta without heart shadow enlargement. No pneumothorax or pleural effusion demonstrated. No evidence of infection. Osseous structures unremarkable. Signed: Ulises Kathleen MDReport Verified Date/Time: 11/29/2017 08:51:39 Reading Location: [facility] Electronically signed by: ULISES KATHLEEN M.D.on 11/29/2017 08:51 AM POCT-GLUCOSE [id number] 07:42:00 Test Item Value Reference Range Interpretation Comments POC-GLUCOSE METER 105 mg/dL 70-[address] [facility] 67[address] ([facility]) ([facility] [address] COMPREHENSIVE METABOLIC [id number] 07:03:00 Test Item Value Reference Range Interpretation Comments TOTAL PROTEIN 7.9 gm/dL 6.0-8.3 (BEAKER) (test code = 770) ALBUMIN (BEAKER) 4.0 g/dL 3.5-5.0 (test code = 1145) ALKALINE PHOSPHATASE 71 U/L 40-150 (BEAKER) (test code = 346) BILIRUBIN TOTAL 0.6 mg/dL 0.2-1.2 (BEAKER) (test code = 377) SODIUM (BEAKER) 140 meq/L 136-145 (test code = 381) POTASSIUM (BEAKER) 4.0 meq/L 3.5-5.1 (test code = 379) CHLORIDE (BEAKER) 103 meq/L 98-107 (test code = 382) CO2 (BEAKER) (test 26 meq/L 22-29 code = 355) BLOOD UREA NITROGEN 14 mg/dL 7-21 (BEAKER) (test code = 354) CREATININE (BEAKER) 0.92 mg/dL 0.57-1.25 (test code = 358) GLUCOSE RANDOM 112 mg/dL 70-105 H (BEAKER) (test code = 652) CALCIUM (BEAKER) 9.1 mg/dL 8.4-10.2 (test code = 697) AST (SGOT) (BEAKER) 19 U/L 5-34 (test code = 353) ALT (SGPT) (BEAKER) 26 U/L 6-55 (test code = 347) EGFR (BEAKER) (test mL/min/1.73 INSUFFIC IENT code = 1092) sq m CLINICAL DATA T O CALCULATE ESTIM ATED GFR. BASIC METABOLIC [id number] 07:03:00 Test Item Value Reference Range Interpretation Comments SODIUM (BEAKER) 140 meq/L 136-145 (test code = 381) POTASSIUM (BEAKER) 4.0 meq/L 3.5-5.1 (test code = 379) CHLORIDE (BEAKER) 103 meq/L 98-107 (test code = 382) CO2 (BEAKER) (test 26 meq/L 22-29 code = 355) BLOOD UREA NITROGEN 14 mg/dL 7-21 (BEAKER) (test code = 354) CREATININE (BEAKER) 0.92 mg/dL 0.57-1.25 (test code = 358) GLUCOSE RANDOM 112 mg/dL 70-105 H (BEAKER) (test code = 652) CALCIUM (BEAKER) 9.1 mg/dL 8.4-10.2 (test code = 697) EGFR (BEAKER) (test mL/min/1.73 INSUFFIC IENT CLINICAL code = 1092) sq m DATA TO CALCULA TE ESTIMATED GFR. [id number] 06:54:00 Test Item Value Reference Range Interpretation Comments MAGNESIUM (BEAKER) (test code = 1.9 mg/dL 1.6-2.6 627) PROTHROMBIN [id number] 06:46:00 Test Item Value Reference Range Interpretation Comments PROTIME (BEAKER) (test code = 13.4 seconds 11.7-14.7 759) INR (BEAKER) (test code = 370) 1.0 <=5.9 RECOMMENDED COUMADIN/WARFARIN INR THERAPY RANGESSTANDARD DOSE: 2.0 - 3.0 Includes: PROPHYLAXIS forvenous thrombosis, systemic embolization; TREATMENT for venous thrombosis and/or pulmonary embolus.HIGH RISK: Target INR is 2.5-3.5 for patients with mechanical heart valves.CBC W/PLT COUNT & AUTO DIFFERENTIAL 2017-11-29 06:35:00 Test Item Value Reference Range Interpretation Comments WHITE BLOOD CELL COUNT (BEAKER) 6.8 K/ L 3.5-10.5 (test code = 775) RED BLOOD CELL COUNT (BEAKER) 5.32 M/ L 4.63-6.08 (test code = 761) HEMOGLOBIN (BEAKER) (test code = 14.6 GM/DL 13.7-17.5 410) HEMATOCRIT (BEAKER) (test code = 47.0 % 40.1-51.0 411) MEAN CORPUSCULAR VOLUME (BEAKER) 88.3 fL 79.0-92.2 (test code = 753) MEAN CORPUSCULAR HEMOGLOBIN 27.4 pg 25.7-32.2 (BEAKER) (test code = 751) MEAN CORPUSCULAR HEMOGLOBIN CONC 31.1 GM/DL 32.3-36.5 L (BEAKER) (test code = 752) RED CELL DISTRIBUTION WIDTH 13.8 % 11.6-14.4 (BEAKER) (test code = 412) PLATELET COUNT (BEAKER) (test 177 K/CU MM 150-450 code = 756) MEAN PLATELET VOLUME (BEAKER) 11.2 fL 9.4-12.4 (test code = 754) NUCLEATED RED BLOOD CELLS 0 /100 WBC 0-0 (BEAKER) (test code = 413) NEUTROPHILS RELATIVE PERCENT 57 % (BEAKER) (test code = 429) LYMPHOCYTES RELATIVE PERCENT 32 % (BEAKER) (test code = 430) MONOCYTES RELATIVE PERCENT 7 % (BEAKER) (test code = 431) EOSINOPHILS RELATIVE PERCENT 4 % (BEAKER) (test code = 432) BASOPHILS RELATIVE PERCENT 0 % (BEAKER) (test code = 437) NEUTROPHILS ABSOLUTE COUNT 3.84 K/ L 1.78-5.38 (BEAKER) (test code = 670) LYMPHOCYTES ABSOLUTE COUNT 2.19 K/ L 1.32-3.57 (BEAKER) (test code = 414) MONOCYTES ABSOLUTE COUNT (BEAKER) 0.44 K/ L 0.30-0.82 (test code = 415) EOSINOPHILS ABSOLUTE COUNT 0.24 K/ L 0.04-0.54 (BEAKER) (test code = 416) BASOPHILS ABSOLUTE COUNT (BEAKER) 0.02 K/ L 0.01-0.08 (test code = 417) IMMATURE GRANULOCYTES-RELATIVE 0 % 0-1 PERCENT (BEAKER) (test code = 2801) POCT-GLUCOSE [id number] 21:53:00 Test Item Value Reference Range Interpretation Comments POC-GLUCOSE METER 131 mg/dL 70-[address] [facility] [address] ([facility]) (test code = [place] 15[address]) [id number] HEMOGLOBIN [id number] 20:50:00 Test Item Value Reference Range Interpretation Comments HEMOGLOBIN A1C (BEAKER) (test code = 6.6 % 4.3-6.1 H 368) POCT-GLUCOSE [id number] 19:15:00 Test Item Value Reference Range Interpretation Comments POC-GLUCOSE METER 134 mg/dL 70-[address] [facility] [address] ([facility]) (test code = [place] 1538) [id number] 18:35:00 Test Item Value Reference Range Interpretation Comments PARTIAL THROMBOPLASTIN TIME 32.4 seconds 22.5-36.0 (BEAKER) (test code = 760) [id number] 18:34:00 Test Item Value Reference Range Interpretation Comments FIBRINOGEN LEVEL (BEAKER) (test 372 mg/dl 225-434 code = 658) TSH/FREE T4 IF [id number] 16:25:00 Test Item Value Reference Range Interpretation Comments THYROID STIMULATING HORMONE 2.53 uIU/mL 0.35-4.94 (BEAKER) (test code = 772) BASIC METABOLIC [id number] 16:10:00 Test Item Value Reference Range Interpretation Comments SODIUM (BEAKER) 139 meq/L 136-145 (test code = 381) POTASSIUM (BEAKER) 4.2 meq/L 3.5-5.1 (test code = 379) CHLORIDE (BEAKER) 106 meq/L 98-107 (test code = 382) CO2 (BEAKER) (test 25 meq/L 22-29 code = 355) BLOOD UREA NITROGEN 15 mg/dL 7-21 (BEAKER) (test code = 354) CREATININE (BEAKER) 0.90 mg/dL 0.57-1.25 (test code = 358) GLUCOSE RANDOM 124 mg/dL 70-105 H (BEAKER) (test code = 652) CALCIUM (BEAKER) 8.8 mg/dL 8.4-10.2 (test code = 697) EGFR (BEAKER) (test mL/min/1.73 INSUFFIC IENT CLINICAL code = 1092) sq m DATA TO CALCULA TE ESTIMATED GFR. [id number] 16:09:00 Test Item Value Reference Range Interpretation Comments PHOSPHORUS (BEAKER) (test code = 3.0 mg/dL 2.3-4.7 604) [id number] 16:09:00 Test Item Value Reference Range Interpretation Comments MAGNESIUM (BEAKER) (test code = 2.0 mg/dL 1.6-2.6 627) LIPID [id number] 16:09:00 Test Item Value Reference Range Interpretation Comments TRIGLYCERIDES (BEAKER) (test code = 263 mg/dL 540) CHOLESTEROL (BEAKER) (test code = 143 mg/dL 631) HDL CHOLESTEROL (BEAKER) (test code 32 mg/dL = 976) LDL CHOLESTEROL CALCULATED (BEAKER) 58 mg/dL (test code = 633) Triglyceride Reference Range: Low Risk <150 Borderline 150-199 High Risk 200-499 Very High Risk >=500Cholesterol Reference Range: Low Risk <200 Borderline 200-239 High Risk >240HDL Cholesterol Reference Range: Low Risk >=60 High Risk <40LDL Cholesterol Reference Range: Optimal <100 Near Optimal 100-129 Borderline 130-159 High 160-189 Very High >=190HEPATIC FUNCTION [id number] 16:09:00 Test Item Value Reference Range Interpretation Comments TOTAL PROTEIN (BEAKER) (test code = 7.5 gm/dL 6.0-8.3 770) ALBUMIN (BEAKER) (test code = 1145) 3.8 g/dL 3.5-5.0 BILIRUBIN TOTAL (BEAKER) (test code 0.4 mg/dL 0.2-1.2 = 377) BILIRUBIN DIRECT (BEAKER) (test 0.2 mg/dL 0.1-0.5 code = 706) ALKALINE PHOSPHATASE (BEAKER) (test 72 U/L 40-150 code = 346) AST (SGOT) (BEAKER) (test code = 21 U/L 5-34 353) ALT (SGPT) (BEAKER) (test code = 22 U/L 6-55 347) [id number] 16:04:00 Test Item Value Reference Range Interpretation Comments PROTIME (BEAKER) (test code = 14.5 seconds 11.7-14.7 759) INR (LaserlikeAKER) (test code = 370) 1.1 <=5.9 PARTIAL THROMBOPLASTIN TIME 29.6 seconds 22.5-36.0 (BEAKER) (test code = 760) RECOMMENDED COUMADIN/WARFARIN INR THERAPY RANGESSTANDARD DOSE: 2.0 - 3.0 Includes: PROPHYLAXIS forvenous thrombosis, systemic embolization; TREATMENT for venous thrombosis and/or pulmonary embolus.HIGH RISK: Target INR is 2.5-3.5 for patients with mechanical heart valves.
[2021-03-16] MEDS ORDERED: MORPHINE 4 MG/ML SYR ONE (20:57)
[2021-03-16] MEDS ORDERED: NITROGLYCERIN 0.4 MG/TAB SL ONE (20:57)
[2021-03-16] MEDS ORDERED: ONDANSETRON 4 MG/2 ML VIAL ONE (20:57)
--- NOTE | 2021-03-16 21:07 | RAD REPORT ---
EXAM DESCRIPTION: RAD - Chest Single View - 03/16/2021 8:59 pm CLINICAL HISTORY: SOB, chest pain COMPARISON: February 2020 TECHNIQUE: AP portable chest image was obtained 03/16/2021 8:59 pm . FINDINGS: No peripheral mass or consolidations seen. Interstitial markings are accentuated due to sh allow inspiration and portable technique. Interstitial pattern is not clearly different from comparis on study. Sternotomy wires are in place. Heart and vasculature are normal. No measurable pleural effu delilah and no pneumothorax. No acute bony abnormality seen. No acute aortic findings suspected. IMPRESSION: No acute cardiopulmonary process. No significant change from comparison study.
[2021-03-16 21:11] LABS: Absolute Lymphocytes (CBC) 1.2 K/uL (0.7-4.9); Basophils % 0.6 % (0-1.3); Hematocrit 44.5 % (39.6-49.0); Lymphocytes % 8.9 % (15.3-44.8); MPV 9.9 fL (7.6-11.3); RBC Red Blood Cell Count 5.31 M/uL (4.33-5.43)
--- NOTE | 2021-03-16 21:27 | ER ---
Nurse's Notes [facility] Name: Armond Beltrán Age: 65 yrs Sex: Male : 1955 Arrival Date: 03/16/2021 Time: 19:42 Bed 24 Private MD: James Rg V Diagnosis: Unstable angina Presentation: 03/16 19:54 Chief complaint: Patient states: Chest pain started today and radiates to Left arm. Pt vg1 states also having Shortness of breath; stated had a quadruple bypass about 3 years ago. Coronavirus screen: Client denies travel out of the [place] in the last 14 days. Ebola Screen: Patient negative for fever greater than or equal to 101.5 degrees Fahrenheit, and additional compatible Ebola Virus Disease symptoms. Initial Sepsis Screen: Does the patient meet any 2 criteria? No. Patient's initial sepsis screen is negative. Does the patient have a suspected source of infection? No. Patient's initial sepsis screen is negative. Risk Assessment: Do you want to hurt yourself or someone else? Patient reports no desire to harm self or others. Onset of symptoms was March 16, 2021. 19:54 Method Of Arrival: Wheelchair vg1 19:54 Acuity: KEVIN 3 vg1 Triage Assessment: 19:58 General: Appears in no apparent distress. uncomfortable, Behavior is calm, cooperative. vg1 Pain: Complains of pain in chest Pain currently is 10 out of 10 on a pain scale. Historical: - Allergies: 19:58 NKA; vg1 - PMHx: 19:58 Chronic pain; Diabetes - NIDDM; Hypertension; Myocardial infarction; vg1 - Immunization history:: Adult Immunizations up to date. - Social history:: Smoking status: Patient denies any tobacco usage or history of. Screenin:31 Abuse screen: Denies threats or abuse. Nutritional screening: No deficits noted. jb4 Tuberculosis screening: No symptoms or risk factors identified. Fall Risk None identified. Assessment: 20:31 General: Appears in no apparent distress. uncomfortable, Behavior is calm, cooperative, jb4 appropriate for age. Pain: Complains of pain in chest Pain does not radiate. Pain currently is 9 out of 10 on a pain scale. Quality of pain is described as pressure, Pain began 1500. Neuro: Level of Consciousness is awake, alert, obeys commands, Oriented to person, place, time, situation. Cardiovascular: Patient's skin is warm and dry. Respiratory: Airway is patent Respiratory effort is even, unlabored, Respiratory pattern is regular, symmetrical. GI: No signs and/or symptoms were reported involving the gastrointestinal system. : No signs and/or symptoms were reported regarding the genitourinary system. EENT: No signs and/or symptoms were reported regarding the EENT system. Derm: Skin is intact, Skin is pink, warm \T\ dry. Musculoskeletal: Circulation, motion, and sensation intact. Range of motion: intact in all extremities. 21:08 Reassessment: Provider notified that pt has had a drop in blood pressure and not change jb4 in pain level. Pt continues to report pain is 8/10-9/10. Received verbal order to hold 3rd dose of sublingual nitro and give 25mcg of Fentanyl. 22:00 Reassessment: Patient appears in no apparent distress at this time. Patient and/or jb4 family updated on plan of care and expected duration. Pain level reassessed. Patient is alert, oriented x 3, equal unlabored respirations, skin warm/dry/pink. Patient states feeling better. Vital Signs: 19:54 BP 165 / 91; Pulse 83; Resp 18; Temp 98.2; Pulse Ox 99% ; Weight 142.88 kg; Height 6 vg1 ft. 1 in. (185.42 cm); Pain 10/10; 21:00 BP 120 / 68; Pulse 82; Resp 28; Pulse Ox 95% on R/A; jb4 22:00 BP 163 / 89; Pulse 70; Resp 16; Pulse Ox 95% on R/A; jb4 19:54 Body Mass Index 41.56 (142.88 kg, 185.42 cm) vg1 ED Course: 19:42 Patient arrived in ED. es 19:43 James Rg MD is Private Physician. es 19:57 Triage completed. vg1 19:58 Arm band placed on. EKG completed in triage. Results shown to MD. vg1 20:14 Serg Mendez MD is Attending Physician. tw4 20:16 Robert Graves, RN is Primary Nurse. jb4 20:25 Inserted saline lock: 20 gauge in right forearm, using aseptic technique. Blood wh collected. 20:31 Patient has correct armband on for positive identification. Bed in low position. Call 4 light in reach. Side rails up X 1. groundwater monitoring technician on. Pulse ox on. NIBP on. 20:59 XRAY Chest (1 view) In Process Unspecified. EDMS 21:26 Joyce Evangelista MD is Hospitalizing Provider. tw4 22:00 No provider procedures requiring assistance completed. Patient admitted, IV remains in jb4 place. 22:20 CT Chest Angio In Process Unspecified. EDMS Administered Medications: 20:41 Drug: Zofran (Ondansetron) 4 mg Route: IVP; Site: right antecubital; jb4 20:43 Drug: morphine 4 mg Route: IVP; Site: right antecubital; jb4 20:44 Drug: Nitroglycerin 0.4 mg Route: Sublingual; jb4 21:00 Drug: Nitroglycerin 0.4 mg Route: Sublingual; jb4 21:12 Drug: fentaNYL (PF) 25 mcg {Note: Rass score 0.} Route: IVP; Site: right forearm; jb Outcome: 21:26 Decision to Hospitalize by Provider. tw4 22:00 Admitted to ER Hold. [facility]. jb4 22:00 Condition: stable 22:00 Discharge instructions given to patient, Instructed on the need for admit, Demonstrated understanding of instructions. 03/17 11:46 Patient left the ED. aa5 Signatures: Dispatcher [employer] EDMS Lorraine Dillon Audri, RN RN aa5 Robert Graves RN RN 4 Delicia Antunez RN RN wh Wadley, Terrence, MD MD [facility] Verónica Echeverria RN RN vg1
--- NOTE | 2021-03-16 21:27 | EDPHYS ---
Physician Documentation [facility] Name: Armond Beltrán Age: 65 yrs Sex: Male : 1955 Arrival Date: 03/16/2021 Time: 19:42 Bed 24 Private MD: James Rg V ED Physician Serg Mendez HPI: 03/17 01:01 This 65 yrs old Male presents to ER via Wheelchair with complaints of Chest tw4 Congestion, Difficulty Swallowing. 01:01 The patient or guardian reports chest pain that is located primarily in the anterior tw4 chest wall. Onset: today. The pain does not radiate. Associated signs and symptoms: The patient has no apparent associated signs or symptoms. The chest pain is described as dull. Duration: The patient or guardian reports a single episode. Modifying factors: The symptoms are alleviated by nothing. the symptoms are aggravated by nothing. Severity of pain: At its worst the pain was moderate in the emergency department the pain is unchanged. The patient has not experienced similar symptoms in the past. Historical: - Allergies: 03/16 19:58 NKA; vg1 - PMHx: 19:58 Chronic pain; Diabetes - NIDDM; Hypertension; Myocardial infarction; vg1 - Immunization history:: Adult Immunizations up to date. - Social history:: Smoking status: Patient denies any tobacco usage or history of. ROS: 03/17 01:01 Constitutional: Negative for fever, chills, and weight loss, Eyes: Negative for injury, tw4 pain, redness, and discharge, Respiratory: Negative for shortness of breath, cough, wheezing, and pleuritic chest pain, Abdomen/GI: Negative for abdominal pain, nausea, vomiting, diarrhea, and constipation, Back: Negative for injury and pain, MS/Extremity: Negative for injury and deformity, Skin: Negative for injury, rash, and discoloration, Neuro: Negative for headache, weakness, numbness, tingling, and seizure. Cardiovascular: Positive for chest pain, Negative for edema, orthopnea, palpitations, paroxysmal nocturnal dyspnea. Exam: 01:01 Constitutional: This is a well developed, well nourished patient who is awake, alert, tw4 and in no acute distress. Head/Face: Normocephalic, atraumatic. Respiratory: Lungs have equal breath sounds bilaterally, clear to auscultation and percussion. No rales, rhonchi or wheezes noted. No increased work of breathing, no retractions or nasal flaring. Abdomen/GI: Soft, non-tender, with normal bowel sounds. No distension or tympany. No guarding or rebound. No evidence of tenderness throughout. Back: No spinal tenderness. No costovertebral tenderness. Full range of motion. Skin: Warm, dry with normal turgor. Normal color with no rashes, no lesions, and no evidence of cellulitis. MS/ Extremity: Pulses equal, no cyanosis. Neurovascular intact. Full, normal range of motion. Neuro: Awake and alert, GCS 15, oriented to person, place, time, and situation. Cranial nerves II-XII grossly intact. Motor strength 5/5 in all extremities. Sensory grossly intact. Cerebellar exam normal. Normal gait. Vital Signs: 03/16 19:54 BP 165 / 91; Pulse 83; Resp 18; Temp 98.2; Pulse Ox 99% ; Weight 142.88 kg; Height 6 vg1 ft. 1 in. (185.42 cm); Pain 10/10; 21:00 BP 120 / 68; Pulse 82; Resp 28; Pulse Ox 95% on R/A; jb4 22:00 BP 163 / 89; Pulse 70; Resp 16; Pulse Ox 95% on R/A; jb4 19:54 Body Mass Index 41.56 (142.88 kg, 185.42 cm) vg1 MDM: 20:14 Patient medically screened. tw4 03/17 01:05 HEART Score: History: Moderately Suspicious (1), ECG: Significant ST-deviation (2), tw4 Age: > 45 and < 65 years (1), Risk Factors: > or = 3 Risk factors for atherosclerotic disease (2), Troponin: < or = 1 x Normal Limit (0), Total Score = 6. Data reviewed: vital signs, nurses notes. Data interpreted: Pulse oximetry: Interpretation: normal. Counseling: I had a detailed discussion with the patient and/or guardian regarding: the historical points, exam findings, and any diagnostic results supporting the discharge/admit diagnosis. Special discussion: I discussed with the patient/guardian in detail that at this point there is no indication for admission to the hospital. It is understood, however, that if the symptoms persist or worsen the patient needs to return immediately for re-evaluation. 03/16 20:15 Order name: Basic Metabolic Panel [facility] 03/16 20:15 Order name: CBC with Diff 03/16 20:15 Order name: LFT's [facility] 03/16 20:15 Order name: Magnesium [facility] 03/16 20:15 Order name: NT PRO-BNP [facility] 03/16 20:15 Order name: PT-INR [facility] 03/16 20:15 Order name: Troponin (emerg Dept Use Only) [facility] 03/16 20:17 Order name: COVID-19 : Document "Date of Symptom Onset" if Symptomatic. [facility] 03/16 22:02 Order name: SARS-COV-2 RT PCR [facility] 03/16 22:19 Order name: Urinalysis W/Microscopic [facility] 03/17 00:34 Order name: Lactate [facility] 03/17 00:38 Order name: Hemoglobin A1c [facility] 03/17 01:08 Order name: Procalcitonin [facility] 03/16 20:15 Order name: XRAY Chest (1 view) [facility] 03/16 21:09 Order name: CT Chest Angio [facility] 03/17 01:57 Order name: Troponin I [facility] 03/17 06:13 Order name: CBC with Automated Diff [facility] 03/17 06:40 Order name: Blood Culture [facility] 03/17 06:40 Order name: Blood Culture [facility] 03/17 06:48 Order name: Comprehensive Metabolic Panel [facility] 03/17 06:48 Order name: Phosphorus [facility] 03/17 06:48 Order name: Lipid Profile [facility] 03/17 06:48 Order name: T4 Free [facility] 03/17 06:48 Order name: Magnesium [facility] 03/17 06:48 Order name: Thyroid Stimulating Hormone [facility] 03/17 08:05 Order name: US [facility] 03/17 11:29 Order name: Troponin I [facility] 03/17 11:41 Order name: Glucose, Ancillary Testing [facility] 03/16 20:15 Order name: EKG; Complete Time: 20:15 [facility] 03/16 20:15 Order name: Cardiac monitoring; Complete Time: 20:25 [facility] 03/16 20:15 Order name: EKG - Nurse/Tech; Complete Time: 20:22 03/16 20:15 Order name: IV Saline Lock; Complete Time: 20:25 [facility] 03/16 20:15 Order name: Labs collected and sent; Complete Time: 20: 4 03/16 20:15 Order name: O2 Per Protocol; Complete Time: 20: 4 03/16 20:15 Order name: O2 Sat Monitoring; Complete Time: 20:4 03/16 22:23 Order name: CONS Physician Consult [facility] Administered Medications: 03/16 20:41 Drug: Zofran (Ondansetron) 4 mg Route: IVP; Site: right antecubital; jb4 20:43 Drug: morphine 4 mg Route: IVP; Site: right antecubital; jb4 20:44 Drug: Nitroglycerin 0.4 mg Route: Sublingual; jb4 21:00 Drug: Nitroglycerin 0.4 mg Route: Sublingual; 4 21:12 Drug: fentaNYL (PF) 25 mcg {Note: Rass score 0.} Route: IVP; Site: right forearm; 4 Disposition: 03/16/21 21:26 Hospitalization ordered by Joyce Evangelista for Inpatient Admission. Preliminary diagnosis is Unstable angina. - Bed requested for Telemetry/MedSurg (Inpatient). - Status is Inpatient Admission. aa5 - Condition is Fair. - Problem is an ongoing problem. - Symptoms are unchanged. Signatures: Dispatcher [employer] [facility] Bridget Dhillon, RN RN aa5 Robert Graves, RN RN jb4 Eb Leal, RN RN ja1 Serg Mendez MD MD tw4 Ena Rivera mw2 Verónica Echeverria, RN RN vg1 Corrections: (The following items were deleted from the chart) 21:12 20:18 CORONAVIRUS ordered. [facility] 22:42 21:26 Hospitalization Ordered by Joyce Evangelista MD for Inpatient Admission. Preliminary mw2 diagnosis is Unstable angina. Bed requested for Telemetry/MedSurg (Inpatient). Status is Inpatient Admission. Condition is Fair. Problem is an ongoing problem. Symptoms are unchanged. 4 03/17 09:45 03/16 22:42 03/16/2021 21:26 Hospitalization Ordered by Joyce Evangelista MD for Inpatient ja1 Admission. Preliminary diagnosis is Unstable angina. Bed requested for [facility] ER HOLD. Status is Inpatient Admission. Condition is Fair. Problem is an ongoing problem. Symptoms are unchanged. mw2 03/17 11:46 09:45 03/16/2021 21:26 Hospitalization Ordered by Joyce Evangelista MD for Inpatient aa5 Admission. Preliminary diagnosis is Unstable angina. Bed requested for Telemetry/MedSurg (Inpatient). Status is Inpatient Admission. Condition is Fair. Problem is an ongoing problem. Symptoms are unchanged. ja1
[2021-03-16] MEDS ORDERED: FENTANYL CITR 100 MCG/2 ML ONE ×2 (21:30→23:22)
[2021-03-16 21:43] LABS: Protime INR 0.94
[2021-03-16 21:57] LABS: ALT/SGPT 21 U/L (12-78); AST/SGOT 12 U/L (15-37); Albumin 3.4 g/dL (3.4-5.0); Alkaline Phosphatase 129 U/L (45-117); BUN Blood Urea Nitrogen 18 mg/dL (7-18); Bicarbonate 26 mmol/L (21-32); Bilirubin Direct < 0.1 mg/dL (0-0.2); Bilirubin Total 0.3 mg/dL (0.2-1.0); Glucose Level 223 mg/dL (74-106); Magnesium 1.9 mg/dL (1.8-2.4); NT PRO-BNP 397 pg/mL (<125); Potassium 3.9 mmol/L (3.5-5.1); Sodium Level 139 mmol/L (136-145); Troponin (Emerg Dept Use Only) < 0.02 ng/mL (0.0-0.045)
[2021-03-16] MEDS ORDERED: MORPHINE 2 MG/ML SYR IV PRN (22:55)
[2021-03-16] MEDS ORDERED: ONDANSETRON 4 MG/2 ML VIAL IV PRN (22:55)
[2021-03-16] MEDS ORDERED: NITROGLYCERIN 0.4 MG/TAB SL PRN (22:55)
[2021-03-16] MEDS ORDERED: ACETAMINOPHEN 500 MG TAB PO PRN (22:55)
[2021-03-16] MEDS ORDERED: FENTANYL CITR 100 MCG/2 ML IV ONE (23:00)
--- NOTE | 2021-03-16 23:06 | P.HP ---
Certification for Inpatient Patient admitted to: Observation With expected LOS: <2 Midnights Patient will require the following post-hospital care: None Practitioner: I am a practitioner with admitting privileges, knowledge of patient current condition, hospital course, and medical plan of care. Services: Services provided to patient in accordance with Admission requirements found in Title 42 Section 412.3 of the Code of Federal Regulations <Eugenio Barajas - Last Filed: 03/16/21 22:56> Patient History Date of Service: 03/16/21 Primary Care Provider: Ifrah Reason for admission: chest pain History of Present Illness: Mr. Beltrán is a 65 yo M with T2DM, HTN, CAD s/p CABG, HLD, chronic cholecystitis and chronic back pain here today for 10/10 sternal chest pressure radiating down left arm beginning at 3pm while he was walking. He reports SOB, wheezing. Denies N/V, vision changes. He had similar chest pain 4 years ago before his CABG. He last saw his director of instrumental music 3 months ago with normal EKG at that time. He says he stopped taking his daily aspirin and does not take his BP medications. WBC 13.1. Plt 130. Glu 223. BNP 397. - Past Medical/Surgical History Diabetic: Yes -: CAD -: NIDDM -: obstructive sleep apnea -: Chronic back pain -: Hyperlipedemia -: Heart cath/with stents x3 -: laminectomy -: coronary artery bypass graft - Family History Brother -: Heart disease - Social History Smoking Status: Never smoker Alcohol use: No CD- Drugs: No Caffeine use: No Place of Residence: Home <Eugenio Barajas Lukasz - Last Filed: 03/16/21 22:56> Date of Service: 03/16/21 <Joyce Evangelista - Last Filed: 03/17/21 13:05> Allergies No Known Allergies Allergy (Verified 01/17/19 20:21) Home Medications: Hydrocodone 10/APAP 325 [Purdy 10/325*] 1 tab PO TID 09/02/19 Aspirin 81 mg PO DAILY 09/03/19 Cholecalciferol (Vitamin D3) [Vitamin D3] 2,000 unit PO DAILY 09/03/19 Finasteride [Proscar*] 5 mg PO DAILY 09/03/19 Glyburide/Metformin HCl [Glucovance 5-500 mg Tablet] 1 tab PO BID 09/03/19 Tamsulosin [Flomax*] 0.4 mg PO DAILY 09/03/19 diazePAM [Diazepam] 5 mg PO DAILY 09/03/19 Atorvastatin Calcium [Lipitor] 1 tab PO BEDTIME 02/25/20 Furosemide [Lasix*] 1 tab PO DAILY 02/25/20 Metoprolol Tartrate [Lopressor*] 1 tab PO BID 02/25/20 levoFLOXacin [Levaquin*] 500 mg PO DAILY #10 tab 02/26/20 Review of Systems General: Unremarkable Eyes: Unremarkable ENT: Unremarkable Respiratory: Shortness of Breath, Wheezing, As per HPI Cardiovascular: Chest Pain, Edema, As per HPI Gastrointestinal: Unremarkable Genitourinary: Unremarkable Musculoskeletal: Back Pain, As per HPI Integumentary: Unremarkable Neurological: Unremarkable Lymphatics: Unremarkable <Eugenio Barajas - Last Filed: 03/16/21 22:56> Physical Examination - Physical Exam General: Alert, In no apparent distress, Oriented x3, Cooperative HEENT: Atraumatic, Normocephalic, PERRLA, Mucous membr. moist/pink, EOMI, Sclerae nonicteric Neck: Supple, 2+ carotid pulse no bruit, JVD not distended, No Thyromegaly, No LAD Respiratory: Clear to auscultation bilaterally, Normal air movement Cardiovascular: Normal pulses, Regular rate/rhythm, Normal S1 S2, No gallops, No rubs, No murmurs, Edema Capillary refill: <2 Seconds Gastrointestinal: Normal bowel sounds, Soft and benign, Non-distended, No ascites, No tenderness, No masses, No rebound, No guarding Musculoskeletal: No clubbing, No swelling, No contractures, No erythema, No tenderness, No warmth Integumentary: No rashes, No breakdown, No significant lesion, No tenderness/swelling, No erythema, No warmth, No cyanosis Neurological: Normal speech, Normal strength at 5/5 x4 extr, Normal tone, Sensation intact, Cranial nerves 3-12 intact, Normal affect Lymphatics: No axilla or inguinal lymphadenopathy - Studies Laboratory Data (last 24 hrs) 03/16/21 21:00: PT 10.8, INR 0.94 03/16/21 21:00: WBC 13.10 H, Hgb 15.1, Hct 44.5, Plt Count 130 L 05/31/21 21:00: Sodium 139, Potassium 3.9, BUN 18, Creatinine 1.01, Glucose 223 H, Magnesium 1.9, Total Bilirubin 0.3, AST 12 L, ALT 21, Alkaline Phosphatase 129 H <Eugenio Barajas - Last Filed: 03/16/21 22:56> - Studies Laboratory Data (last 24 hrs) 03/16/21 21:00: PT 10.8, INR 0.94 03/16/21 21:00: WBC 13.10 H, Hgb 15.1, Hct 44.5, Plt Count 130 L 03/16/21 21:00: Sodium 139, Potassium 3.9, BUN 18, Creatinine 1.01, Glucose 223 H, Magnesium 1.9, Total Bilirubin 0.3, AST 12 L, ALT 21, Alkaline Phosphatase 129 H <Joyce Evangelista - Last Filed: 03/17/21 13:05> Assessment and Plan - Problems (Diagnosis) (1) Back pain Onset Date: 11/28/17 Current Visit: No Status: Chronic Qualifiers: Back pain location: low back pain Chronicity: chronic Back pain laterality: unspecified Sciatica presence: without sciatica Qualified Code(s): M54.5 - Low back pain; G89.29 - Other chronic pain (2) CAD (coronary artery disease) Onset Date: 08/15/18 Current Visit: No Status: Chronic Qualifiers: Coronary Disease-Associated Artery/Lesion type: bypass graft [place] vs. transplanted heart: [place] heart Associated angina: with stable angina Qualified Code(s): I25.708 - Atherosclerosis of coronary artery bypass graft(s), unspecified, with other forms of angina pectoris (3) Chest pain Onset Date: 11/28/17 Current Visit: No Status: Acute Qualifiers: Chest pain type: unspecified Qualified Code(s): R07.9 - Chest pain, unspecified (4) Diabetes Onset Date: 11/28/17 Current Visit: No Status: Chronic Qualifiers: Diabetes mellitus type: type 2 Diabetes mellitus terminal manager insulin use: without terminal manager use Diabetes mellitus complication status: without complication Qualified Code(s): E11.9 - Type 2 diabetes mellitus without complications (5) Obesity Onset Date: 11/28/17 Current Visit: No Status: Chronic Qualifiers: Obesity type: due to excess calories Obesity classification: unspecified obesity classification (6) Cholecystitis Onset Date: 10/13/16 Current Visit: No Status: Chronic - Plan cardiology consulted trend troponins and EKG, morphine and NTG PRN continue BB, statin ultrasound of lower extremities pending, IV lasix daily lipid panel, thyroid panel pending A1c pending, sliding scale insulin, accuchecks, dietitian consulted elevated WBCs - UA pending, was recently admitted for pneumonia, has history of chronic cholecystitis, no other complaints DVT ppx Discharge Plan: Home Plan to discharge in: 24 Hours - Advance Directives Does patient have a Living Will: No Does patient have a Durable POA for Healthcare: No - Code Status/Comfort Care Code Status Assessed: Yes (full code) Critical Care: No Time Spent Managing Pts Care (In Minutes): 70 <Eugenio Barajas - Last Filed: 03/16/21 22:56> Date of Service: 03/16/21 Start is been reviewed. Agree with advance as mentioned above. If patient is ruled out for acute coronary syndrome then anticipate discharge home. <Joyce Evangelista - Last Filed: 03/17/21 13:05>
[2021-03-16 23:28] LABS: Urine Appearance CLEAR (Clear); Urine Bilirubin NEGATIVE (Negative); Urine Blood NEGATIVE (Negative); Urine Color YELLOW (Yellow); Urine Glucose 3+ (Negative); Urine Protein NEGATIVE (Negative); Urine Specific Gravity >=1.030 (1.005-1.030)
[2021-03-16 23:32] VITALS: BMI 41.5
[2021-03-17] MEDS ORDERED: MELATONIN 5 MG TABLET PO PRN (00:27)
[2021-03-17 01:10] LABS: Urine Bacteria 20-50 /HPF (NONE SEEN); Urine RBC NONE SEEN /HPF (NONE SEEN)
[2021-03-17] MEDS ORDERED: MELATONIN 5 MG TABLET PO ONE (01:14)
[2021-03-17 02:07] VITALS: O2SAT 94
[2021-03-17] MEDS ORDERED: FENTANYL CITR 100 MCG/2 ML IV PRN (03:00)
[2021-03-17] MEDS: HYDROCODONE/APAP 10/325 TAB PO PRN ×2 (05:54→12:58)
[2021-03-17] MEDS ORDERED: METOPROLOL TAR 25 MG TAB PO SCH (06:00)
[2021-03-17 06:10] LABS: Absolute Lymphocytes (CBC) 1.6 K/uL (0.7-4.9); Basophils % 0.6 % (0-1.3); Hematocrit 40.5 % (39.6-49.0); Lymphocytes % 12.3 % (15.3-44.8); MPV 10.2 fL (7.6-11.3); RBC Red Blood Cell Count 4.75 M/uL (4.33-5.43)
[2021-03-17] MEDS ORDERED: HYDROCODONE/APAP 10/325 TAB ONE (06:12)
[2021-03-17] MEDS ORDERED: METOPROLOL TAR 25 MG TAB ONE (06:12)
[2021-03-17 06:47] LABS: Albumin 3.1 g/dL (3.4-5.0); Bilirubin Total 0.7 mg/dL (0.2-1.0); Potassium 3.9 mmol/L (3.5-5.1); Protein, Total 6.6 g/dL (6.4-8.2); Thyroid Stimulating Hormone 1.69 uIU/mL (0.360-3.740)
[2021-03-17] MEDS: INSULIN -REGULAR HUMAN 50 UNIT/0.5 ML ML SQ SCH ×2 (07:30→11:30)
--- NOTE | 2021-03-17 08:04 | RAD REPORT ---
EXAM DESCRIPTION: USExtrem Venous W Compress Bil03/17/2021 7:06 am CLINICAL HISTORY: Leg swelling COMPARISON: 2018 FINDINGS: The common femoral, superficial femoral, popliteal and posterior tibial veins bilaterally are compressible and demonstrate augmentation. Doppler demonstrates good flow. IMPRESSION: No evidence of deep venous thrombosis involving either lower extremity.
[2021-03-17] MEDS ORDERED: FUROSEMIDE 20 MG/ 2ML VIAL IV SCH (09:00)
[2021-03-17] MEDS ORDERED: FUROSEMIDE 20 MG/ 2ML VIAL ONE (09:20)
--- NOTE | 2021-03-17 10:24 | RAD REPORT ---
EXAM DESCRIPTION: CT - Chest Angio - 03/17/2021 6:38 am CLINICAL HISTORY: DISSECTION. Chest pain. COMPARISON: CTA of the chest from January 17, 2019. TECHNIQUE: CTA of the chest was performed following intravenous administration of iodinated contrast . Axial soft tissue and bone window, and coronal and sagittal soft tissue window reconstructions were created and sent to PACS. 3D postprocessing was performed on an independent workstation, with images sent to PACS for subsequen t review. This exam was performed according to our departmental dose-optimization program, which includes autom ated exposure control, adjustment of the mA and/or kV according to patient size and/or use of iterati ve reconstruction technique. FINDINGS: Vascular: No evidence of aortic aneurysm or dissection. No CT evidence of central acute pu lmonary thromboembolism. Lungs and pleura: Motion degradation. No pulmonary consolidation. No pleural effusion. No pneumothora x. Mediastinum and neck: No mediastinal lymphadenopathy by CT size criteria. Partially calcified mediast inal lymph nodes. Unremarkable appearance of the thyroid gland. Cardiac: Mild cardiomegaly. No pericardial effusion. Prior CABG. Abdomen: Unchanged pneumobilia. Small calcification in the spleen, likely sequela of remote prior hea led granulomatous disease. Musculoskeletal: No concerning osseous abnormality. Thoracic spine degenerative changes, with moderat e anterolateral osteophytes. IMPRESSION: 1. No evidence of aortic aneurysm or dissection. 2. No acute pulmonary abnormality. Electronically signed by: Pema Up MD 03/16/2021 10:33 PM CDT Due to temporary technical issues with the PACS/Fluency reporting system, reports are being signed by the in house radiologists without review as a courtesy to insure prompt reporting. The interpreting radiologist is fully responsible for the content of the report.
[2021-03-17 12:24] VITALS: BP 136/72; TEMP 96.4
--- NOTE | 2021-03-17 13:14 | P.DS ---
Discharge Date: 03/17/21 Primary Care Provider: Ifrah Disposition: ROUTINE DISCHARGE Discharge Condition: GOOD Reason for Admission: chest pain Brief History of Present Illness: Mr. Beltrán is a 65 yo M with T2DM, HTN, CAD s/p CABG, HLD, chronic cholecystitis and chronic back pain here today for 10/10 sternal chest pressure radiating down left arm beginning at 3pm while he was walking. He reports SOB, wheezing. Denies N/V, vision changes. He had similar chest pain 4 years ago before his CABG. He last saw his clinical research physician 3 months ago with normal EKG at that time. He says he stopped taking his daily aspirin and does not take his BP medications. WBC 13.1. Plt 130. Glu 223. BNP 397. Hospital Course: Patient was seen by Cardiology and they felt most likely it was gastroesophageal reflux disease. Patient will be discharged on Protonix and we will have outpatient follow-up. Vital Signs/Physical Exam: Temp Pulse Resp BP Pulse Ox 96.4 F L 64 16 136/72 96 03/17/21 12:00 03/17/21 12:00 03/17/21 12:00 03/17/21 12:00 03/17/21 12:00 General: Alert, In no apparent distress, Oriented x3 Laboratory Data at Discharge: WBC 13.10 K/uL (4.3-10.9) H 03/17/21 05:07 Hgb 13.3 g/dL (13.6-17.9) L 03/17/21 05:07 Hct 40.5 % (39.6-49.0) 03/17/21 05:07 Plt Count 132 K/uL (152-406) L 03/17/21 05:07 PT 10.8 SECONDS (9.5-12.5) 03/16/21 21:00 INR 0.94 03/16/21 21:00 Sodium 139 mmol/L (136-145) 03/17/21 06:15 Potassium 3.9 mmol/L (3.5-5.1) 03/17/21 06:15 BUN 17 mg/dL (7-18) 03/17/21 06:15 Creatinine 0.94 mg/dL (0.55-1.3) 03/17/21 06:15 Glucose 151 mg/dL (74-106) H 03/17/21 06:15 Phosphorus 3.0 mg/dL (2.5-4.9) 03/17/21 06:15 Magnesium 2.0 mg/dL (1.8-2.4) 03/17/21 06:15 Total Bilirubin 0.7 mg/dL (0.2-1.0) 03/17/21 06:15 AST 8 U/L (15-37) L 03/17/21 06:15 ALT 18 U/L (12-78) 03/17/21 06:15 Alkaline Phosphatase 97 U/L (45-117) 03/17/21 06:15 Troponin I < 0.02 ng/mL (0.0-0.045) 03/17/21 10:55 Triglycerides 185 mg/dL (<150) H 03/17/21 06:15 Cholesterol 136 mg/dL (<200) 03/17/21 06:15 HDL Cholesterol 47 mg/dL (40-60) 03/17/21 06:15 Cholesterol/HDL Ratio 2.89 03/17/21 06:15 Home Medications: Hydrocodone 10/APAP 325 [[place] 10/325*] 1 tab PO TID 09/02/19 Aspirin 81 mg PO DAILY 09/03/19 Cholecalciferol (Vitamin D3) [Vitamin D3] 2,000 unit PO DAILY 09/03/19 Finasteride [Proscar*] 5 mg PO DAILY 09/03/19 Glyburide/Metformin HCl [Glucovance 5-500 mg Tablet] 1 tab PO BID 09/03/19 Tamsulosin [Flomax*] 0.4 mg PO DAILY 09/03/19 diazePAM [Diazepam] 5 mg PO DAILY 09/03/19 Atorvastatin Calcium [Lipitor] 1 tab PO BEDTIME 02/25/20 Furosemide [Lasix*] 1 tab PO DAILY 02/25/20 Metoprolol Tartrate [Lopressor*] 1 tab PO BID 02/25/20 levoFLOXacin [Levaquin*] 500 mg PO DAILY #10 tab 02/26/20 Hydrocodone 10/APAP 325 [[place] 10/325*] 1 tab PO Q12HP PRN #30 tab 03/17/21 New Medications: Hydrocodone 10/APAP 325 [[place] 10/325*] 1 tab PO Q12HP PRN #30 tab PRN Reason: Pain Scale 5-7 (Moderate) Physician Discharge Instructions: OK TO DC IV AND DC HOME FOLLOW-UP WITH PRIMARY CARE PROVIDER IN 1-2 WEEKS FOLLOW-UP WITH CARDIOLOGY IN 1-2 WEEKS RETURN TO THE ER IF symptoms worsen CALL or TEXT DR. JOHN AT [phone] IF ANY QUESTIONS REGARDING HOSPITAL STAY. PLEASE CALL THE FLOOR AT [phone] IF ANY MEDICATION OR NURSING QUESTIONS. Diet: AHA Activity: Fall precautions Followup: Floyd Grayson MD [ACTIVE - CAN ADMIT] - (call to schedule appointment) James Rg MD [Primary Care Provider] - (Call to schedule appointment) Time spent managing pt's care (in minutes): 35
[2021-03-17] MEDS ORDERED: ATORVASTATIN 40 MG TAB PO SCH (21:00)
--- NOTE | 2021-03-18 12:01 | EKG ---
Test Date: 2021-03-16 Test Time: 23:13:42 Brim Curler: CAMRON MEASUREMENT RESULTS: Intervals: Rate: 78 CT: 154 QRSD: 154 QT: 426 QTc: 485 [place]: P: 58 CT: 154 QRS: 268 T: 27 INTERPRETIVE STATEMENTS: Normal sinus rhythm Right bundle branch block Abnormal ECG Compared to ECG 03/16/2021 19:48:07 No significant changes Electronically Signed On 03-18-21 11:54:28 CDT by Floyd Grayson
--- NOTE | 2021-03-18 12:02 | EKG ---
Test Date: 2021-03-16 Test Time: 19:48:07 [employer]ging: CHIDI MEASUREMENT RESULTS: Intervals: Rate: 82 ME: 152 QRSD: 152 QT: 428 QTc: 500 [place]: P: 54 ME: 152 QRS: 266 T: 19 INTERPRETIVE STATEMENTS: Normal sinus rhythm Right bundle branch block Abnormal ECG Compared to ECG 02/25/2020 02:48:13 Sinus tachycardia no longer present Myocardial infarct finding no longer present Electronically Signed On 03-18-21 11:54:32 CDT by Floyd Grayson
--- NOTE | 2021-03-22 10:12 | CON ---
Date of Consultation: 03/17/2021 Reason For Consultation: Chest pain. History Of Present Illness: Mr. Beltrán is a 65-year-old with chronic pain syndrome, diabetes, hyper tension, CAD in the past. He came in with upper chest pain, chest congestion, complaining of difficu lty swallowing. Symptoms have been going on for a few days. No nausea. No vomiting. No diaphoresi s. Denied any PND, orthopnea, pedal edema, palpitations, or syncope. He denied any fever or chills. By the time I saw him, he has already had a normal EKG, normal x-ray, and normal troponin. Past Medical History: As stated above. Allergies: NONE. Review of Systems: Negative. Social History: Negative. Family History: Noncontributory. Medications: At home include aspirin, Lipitor, Proscar, Lasix, Glucovance, hydrocodone, metoprolol, tamsulosin, diazepam, and Levaquin. Physical Examination: Vital Signs: He weighs 315 pounds. HEENT: Negative. Neck: Supple with no bruit. Chest: Clear to auscultation and percussion. Cardiac: Revealed a regular rhythm and rate. No murmurs, gallops, or rubs. Abdomen: Obese, but benign. Extremities: Revealed no clubbing, cyanosis, or edema. Diagnostic Data: His white count was 13.1. Glucose was 188. BNP was 397. Troponin was negative. His cholesterol was 136 with an LDL of 52. Impression And Plan: Atypical chest pain, more likely to be related to gastroesophageal reflux disea se or dysphagia from esophageal issue. I think he should be on proton pump inhibitor. I think he sh ould have a GI workup. He has had a negative EKG, negative CT angiogram, negative chest x-ray, and n egative venous Doppler. I will be happy to see him as an outpatient. No cardiac workup necessary at this point. DIALLO/MARIA E Voice ID: [id number] Report ID: [id number]
== END 2021-03-17 14:00 | disposition home or self-care (01) ==
LOC: ER 19:40 → INTOOBSV 22:22 → ERHOLD 22:22 → 4TH 03-17 11:53
PROVIDERS: ADMIT Hospitalist; ATTEND Hospitalist
DX: R07.9 Chest pain, unspecified (principal); E11.9 Type 2 diabetes mellitus without complications; I25.10 Atherosclerotic heart disease of native coronary artery without angina pectoris; G47.33 Obstructive sleep apnea (adult) (pediatric); M54.9 Dorsalgia, unspecified; G89.29 Other chronic pain; Z20.822 Contact with and (suspected) exposure to COVID-19; E78.5 Hyperlipidemia, unspecified; Z95.5 Presence of coronary angioplasty implant and graft; Z95.1 Presence of aortocoronary bypass graft; E66.9 Obesity, unspecified; K81.1 Chronic cholecystitis; Z68.41 Body mass index [BMI] 40.0-44.9, adult; R94.31 Abnormal electrocardiogram [ECG] [EKG]
CPT/HCPCS: 93005 ×3; 87040 ×2; 87088; 85025 ×2; 81001; 87086; 80048; 36415; 83735 ×2; 84100; 85610; 80061; 82947; 80076; 83605; 84443; 83036; 84484 ×3; 84439; 80053; 84145; 83880; 71275; 71045; 93970; 94760 ×2; U0003; Q9967; J1940; J3010 ×2; J2405; 99285

== ENCOUNTER 2021-08-25 11:21 | Inpatient (IN) | payer OTHER ==
[2021-08-25] MEDS ORDERED: NA CHLORIDE 0.9% 1,000 ML ONE (12:20)
[2021-08-25 12:21] LABS: Basophils % 0.3 % (0-1.3); Hematocrit 48.9 % (39.6-49.0); Lymphocytes % 8.8 % (15.3-44.8); MPV 9.4 fL (7.6-11.3)
[2021-08-25 12:21] LABS: Arterial Blood Carboxyhemoglob 2.4 % (0-1.5); Blood Gas Oxyhemoglobin 90.3 % (94-97); Blood O2 Saturation 93.4 % (92-98.5)
[2021-08-25 12:22] LABS: Absolute Lymphocytes (CBC) 0.8 K/uL (0.7-4.9)
[2021-08-25 12:25] LABS: Protime INR 1.22
[2021-08-25 12:37] LABS: ALT/SGPT 24 U/L (12-78); AST/SGOT 14 U/L (15-37); Albumin 3.1 g/dL (3.4-5.0); Alkaline Phosphatase 75 U/L (45-117); BUN Blood Urea Nitrogen 18 mg/dL (7-18); Bicarbonate 28 mmol/L (21-32); Bilirubin Direct 0.4 mg/dL (0-0.2); Bilirubin Total 1.5 mg/dL (0.2-1.0); Glucose Level 320 mg/dL (74-106); Magnesium 1.9 mg/dL (1.8-2.4); NT PRO-BNP 1018 pg/mL (<125); Protein, Total 8.3 g/dL (6.4-8.2); Sodium Level 134 mmol/L (136-145); Troponin (Emerg Dept Use Only) < 0.02 ng/mL (0.0-0.045)
--- NOTE | 2021-08-25 12:43 | RAD REPORT ---
EXAM DESCRIPTION: CT - Head Brain Wo Cont - 08/25/2021 12:32 pm CLINICAL HISTORY: DIZZINESSweakness, syncope COMPARISON: Head angio dated 08/25/2021, no prior CT head studies TECHNIQUE: Axial 5 mm thick images of the head were obtained without IV contrast. All CT scans are performed using dose optimization technique as appropriate and may include automated exposure control or mA/KV adjustment according to patient size. FINDINGS: No intracranial hemorrhage, mass, edema or shift of mid-line structures. No acute infarcti on changes seen. No abnormal extra-axial fluid collections. Ventricles are normal. No measurable atro phy or chronic ischemic change. Physiologic calcifications are present. Posterior fossa evaluation is inherently limited. Arterial tree calcifications are present. Patient has hyperostosis along the inn er table of the frontal bone. Mastoid air cells and visualized portions of the paranasal sinuses are clear. No acute bony findings. Thinning of the soft tissues in the midline overlying the frontal bone may be scarring from prior inj ury. There is soft tissue attenuation in the left parietal scalp just off of midline. There are calci fications in this may be a prior scalp injury. Focal calcifications in the right parietal scalp soft tissues probably old injury as well. IMPRESSION: Noncontrast CT head study, detailed above, shows no acute or suspicious finding.
--- NOTE | 2021-08-25 12:46 | RAD REPORT ---
EXAM DESCRIPTION: CT - Head angio - 08/25/2021 12:33 pm CLINICAL HISTORY: DIZZINESS, syncope, weakness TECHNIQUE: During dynamic enhancement using nonionic IV contrast, axial 1 millimeter thick images of the head were obtained. Sagittal and axial reconstruction images were generated using MIP technique and reviewed. All CT scans are performed using dose optimization technique as appropriate and may include automated exposure control or mA/KV adjustment according to patient size. COMPARISON: CT head same date FINDINGS: No aneurysm or vascular malformation identified. Major venous sinuses are patent. No stenosis, named branch occlusion, vasculitis or other significant vascular finding identifiable. N o devascularized zone identifiable. Anterior communicating artery is present. Calcifications are pres ent in the cavernous sinus portion of each internal carotid artery without significant luminal narrow ing. Mild vertebrobasilar tortuosity. Patient has significant right deviation of the nasal septum. No globe or orbital content abnormality. Mastoid air cells and visualized paranasal sinuses are clear. IMPRESSION: CT angio head examination, detailed above, is without acute or significant finding.
--- NOTE | 2021-08-25 12:49 | RAD REPORT ---
EXAM DESCRIPTION: CT - Neck Angio - 08/25/2021 12:33 pm CLINICAL HISTORY: dizziness, unsteady gait TECHNIQUE: During dynamic enhancement using nonionic IV contrast, axial 2 mm thick images of the nec k were obtained. Sagittal and axial reconstruction images were generated using MIP technique and revi ewed. All CT scans are performed using dose optimization technique as appropriate and may include automated exposure control or mA/KV adjustment according to patient size. COMPARISON: CT head same date, CT angio head same date FINDINGS: No aneurysm or vascular malformation identified. No carotid or vertebral dissection. Aortic arch and great vessel origins fall outside of the field of view. Vertebral artery origins are identified and unremarkable. No focal stenosis, vasculitis or other significant carotid artery findin g. Mild narrowing of the proximal right ICA noted without focal abnormality or associated atheroscler otic calcifications. No focal abnormality of either vertebral artery. Basilar artery is normal. IMPRESSION: CT angio neck examination, detailed above, shows no acute or emergent finding.
--- NOTE | 2021-08-25 12:52 | RAD REPORT ---
EXAM DESCRIPTION: CT - Chest For Pe Angio - 08/25/2021 12:33 pm CLINICAL HISTORY: DYSPNEA COMPARISON: Chest Angio dated 03/16/2021; Abdomen Pelvis Wo Contrast dated 01/17/2019 TECHNIQUE: Dynamically enhanced 3 mm thick images of the chest were obtained during administration o f approximately 150mL Isovue 370 IV contrast. Coronal and oblique MIP reconstruction images were gene rated and reviewed. Exam utilizes a protocol to evaluate the pulmonary arterial tree. All CT scans are performed using dose optimization technique as appropriate and may include automated exposure control or mA/KV adjustment according to patient size. FINDINGS: No pulmonary emboli are identified. Far peripheral branch assessment in each lung base snyder ited due to motion. Probability of significant pulmonary embolic disease far peripheral branches felt to be quite low. The aorta as imaged shows no acute or suspicious finding. No pericardial thickening or effusion. CABG surgical changes are evident. No infiltrate or mass in the lung parenchyma. No pleural effusion or pleural thickening. No mediastinal or hilar suspicious masses. No chest wall masses or abnormal axillary lymphadenopathy. Limited upper abdomen imaging shows fatty infiltration of the liver with pneumobilia. Pneumobilia is presumed to be secondary to cholecystectomy and sphincterotomy changes. This needs correlation with s urgical history. IMPRESSION: No pulmonary emboli identified. No other significant or suspicious findings.
[2021-08-25 13:37] LABS: Blood Morphology Comment NOT SEEN (NOT SEEN); Platelet Estimate DECR; White Blood Cell Scan OK (OK)
--- NOTE | 2021-08-25 13:45 | RAD REPORT ---
EXAM DESCRIPTION: RAD - Chest Single View - 08/25/2021 12:42 pm CLINICAL HISTORY: DYSPNEA Chest pain. COMPARISON: Chest Single View dated 03/16/2021; Chest Pa And Lat (2 Views) dated 02/25/2020; Chest Sin gle View dated 09/02/2019; Chest Pa And Lat (2 Views) dated 01/17/2019 FINDINGS: Portable technique limits examination quality. Mild pulmonary edema is seen. The heart is mildly enlarged in size with changes of a prior CABG seen. No displaced fractures. IMPRESSION: Mild CHF versus volume overload pattern.
[2021-08-25 14:02] LABS: SARS-COV-2 RT PCR NEGATIVE (NEGATIVE)
--- NOTE | 2021-08-25 16:20 | RAD REPORT ---
EXAM DESCRIPTION: MRI - MRA Head Wo Cont - 08/25/2021 3:41 pm CLINICAL HISTORY: Dizziness unsteady gait COMPARISON: Head angio dated 08/25/2021; Neck Angio dated 08/25/2021; Chest For Pe Angio dated 08/25/20 21 FINDINGS: 3D noncontrast [id number] MR angiography of the [place] was performed. No aneurysm, flow-limiting stenosis or vascular malformation is seen. Forward flow seen in codominant vertebral arteries. Minimal tortuosity of the vertebrobasilar vasculature. Anterior communicating ar spenser is present. Mild atherosclerotic changes right A1 LEV segment any bilateral middle cerebral yoni ry vessels. The visualized dural venous sinuses appear patent. IMPRESSION: No significant flow abnormality of the [place] or peripheral vasculature identi fied.
[2021-08-25] MEDS ORDERED: METOPROLOL TARTRATE 5 MG/5 ML INJ IV ONE (16:23)
--- NOTE | 2021-08-25 16:28 | RAD REPORT ---
EXAM DESCRIPTION: MRI - Brain Wo Cont - 08/25/2021 3:42 pm CLINICAL HISTORY: dizziness, unsteady gait COMPARISON: MRA Head Wo Cont dated 08/25/2021; Head Brain Wo Cont dated 08/25/2021 TECHNIQUE: Sagittal T1-weighted images were obtained along with axial PD, heavily T2-weighted and T2 -FLAIR images. Axial DWI and ADC mapping sequences were also obtained along with coronal heavily T2-w eighted images. FINDINGS: No intracranial hemorrhage, mass or acute infarction. There is no edema or shift of midlin e structures. No extra-axial fluid collections. Stephens-matter/white matter junction is preserved. Signa l voids are seen as a normal finding in the major intracranial vessels. No significant atrophy or chronic ischemic changes. Ventricles normal. No sella or supra sella abnorm ality. Mastoid air cells and paranasal sinuses are clear. IMPRESSION: Negative non-contrast MRI of the Brain for acute or significant finding.
--- NOTE | 2021-08-25 16:39 | EDPHYS ---
Physician Documentation [facility] Name: Armond Beltrán Age: 66 yrs Sex: Male : 1955 Arrival Date: 08/25/2021 Time: 11:22 Bed 20 Private MD: James Rg V ED Physician Sandor Rich HPI: 08/25 12:07 This 66 yrs old Male presents to ER via Wheelchair with complaints of pkl Shortness Of Breath, Weakness, Near Syncope. 12:07 The patient has shortness of breath at rest. Onset: The symptoms/episode began/occurred pkl yesterday. Associated signs and symptoms: Pertinent positives: near syncope, dizziness and unsteady gait. Historical: - Allergies: 11:40 NKA; aa5 - PMHx: 11:40 Chronic pain; Diabetes - NIDDM; Hypertension; Myocardial infarction; aa5 - Immunization history:: Client reports receiving the 2nd dose of the Covid vaccine. - Social history:: Smoking status: Patient denies any tobacco usage or history of. ROS: 12:07 Eyes: Negative for injury, pain, redness, and discharge, ENT: Negative for injury, pkl pain, and discharge, Neck: Negative for injury, pain, and swelling, Cardiovascular: Negative for chest pain, palpitations, and edema. 12:07 Respiratory: Positive for shortness of breath, at rest. 12:07 Abdomen/GI: Negative for abdominal pain, nausea, vomiting, and diarrhea. 12:07 Back: Negative for acute changes. 12:07 : Negative for urinary symptoms. 12:07 MS/extremity: Negative for acute changes. 12:07 Skin: Negative for rash. 12:07 Neuro: Positive for dizziness, gait disturbance. Exam: 12:07 Head/Face: Normocephalic, atraumatic. Eyes: Pupils equal round and reactive to light, pkl extra-ocular motions intact. Lids and lashes normal. Conjunctiva and sclera are non-icteric and not injected. Cornea within normal limits. Periorbital areas with no swelling, redness, or edema. ENT: Nares patent. No nasal discharge, no septal abnormalities noted. Tympanic membranes are normal and external auditory canals are clear. Oropharynx with no redness, swelling, or masses, exudates, or evidence of obstruction, uvula midline. Mucous membranes moist. Neck: Trachea midline, no thyromegaly or masses palpated, and no cervical lymphadenopathy. Supple, full range of motion without nuchal rigidity, or vertebral point tenderness. No Meningismus. Chest/axilla: Normal chest wall appearance and motion. Nontender with no deformity. No lesions are appreciated. Cardiovascular: Regular rate and rhythm with a normal S1 and S2. No gallops, murmurs, or rubs. Normal PMI, no JVD. No pulse deficits. Respiratory: Lungs have equal breath sounds bilaterally, clear to auscultation and percussion. No rales, rhonchi or wheezes noted. No increased work of breathing, no retractions or nasal flaring. Abdomen/GI: Soft, non-tender, with normal bowel sounds. No distension or tympany. No guarding or rebound. No evidence of tenderness throughout. Back: No spinal tenderness. No costovertebral tenderness. Full range of motion. Skin: Warm, dry with normal turgor. Normal color with no rashes, no lesions, and no evidence of cellulitis. MS/ Extremity: Pulses equal, no cyanosis. Neurovascular intact. Full, normal range of motion. 12:07 Neuro: Orientation: is normal, Mentation: is normal, Cranial nerves: grossly normal, Cerebellar function: normal finger to nose testing, heel to olvera testing is normal, Motor: is normal, Sensation: is normal, Gait: is steady. Vital Signs: 11:38 BP 145 / 90; Pulse 96; Resp 18 S; Temp 98.2(TE); Pulse Ox 95% on R/A; Weight 142.88 kg aa5 (R); Height 6 ft. 1 in. (185.42 cm) (R); 12:00 BP 144 / 98; Pulse 95; Resp 18; Temp 98.2(O); Pulse Ox 97% on R/A; sl2 13:00 BP 165 / 91; Pulse 94; Resp 20; Pulse Ox 97% on R/A; sl2 14:00 BP 148 / 63; Pulse 94; Resp 18; Temp 98.4(O); Pulse Ox 97% on R/A; sl2 15:50 BP 150 / 92; Pulse 111; Resp 20; Temp 98.2(O); Pulse Ox 99% on R/A; sl2 16:00 BP 153 / 87; Pulse 110; Resp 20; Pulse Ox 98% on R/A; sl2 17:00 BP 158 / 94; Pulse 96; Resp 20; Pulse Ox 97% on R/A; sl2 17:30 BP 131 / 51; Pulse 93; Resp 18; Temp 98.4; Pulse Ox 99% on R/A; sl2 18:30 BP 100 / 62; Pulse 97; Resp 18; Temp 98.2(O); Pulse Ox 99% on 2 lpm NC; sl2 19:30 BP 140 / 83; Pulse 91; Resp 20; Temp 98.4; Pulse Ox 97% on 2 lpm NC; sl2 11:38 Body Mass Index 41.56 (142.88 kg, 185.42 cm) aa5 MDM: 11:41 Patient medically screened. pkl 16:28 Data reviewed: vital signs, nurses notes, lab test result(s), EKG, radiologic studies, pkl CT scan, plain films. ED course: Talked to Dr. Rg, for observation. Consult Dr. Grayson. 08/25 11:56 Order name: Basic Metabolic Panel; Complete Time: 13:01 pkl 08/25 11:56 Order name: CBC with Diff; Complete Time: 14:34 pkl 08/25 11:56 Order name: LFT's; Complete Time: 13:01 pkl 08/25 11:56 Order name: Magnesium; Complete Time: 13:01 pkl 08/25 11:56 Order name: NT PRO-BNP; Complete Time: 13:01 pkl 08/25 11:56 Order name: PT-INR; Complete Time: 13:01 pkl 08/25 11:56 Order name: Troponin (emerg Dept Use Only); Complete Time: 13:01 pkl 08/25 11:56 Order name: D-Dimer; Complete Time: 13:01 pkl 08/25 11:57 Order name: Creatinine, Serum pkl 08/25 11:57 Order name: ABG; Complete Time: 13:01 pkl 08/25 11:58 Order name: COVID-19/FLU A+B (Document "Date of Onset" if Symptomatic); Complete Time: pkl 14:34 08/25 11:58 Order name: Lactate; Complete Time: 13:01 pkl 08/25 13:12 Order name: CREATININE WHOLE BLOOD; Complete Time: 14:34 EDMS 08/25 13:37 Order name: CBC Smear Scan; Complete Time: 14:34 EDMS 08/25 11:56 Order name: XRAY Chest (1 view); Complete Time: 14:34 pkl 08/25 12:02 Order name: CT Head Brain wo Cont; Complete Time: 13:01 pkl 08/25 12:02 Order name: CT Head Angio; Complete Time: 13:01 pkl 08/25 12:02 Order name: CT Neck Angio; Complete Time: 13:01 pkl 08/25 12:02 Order name: CT Chest For PE Angio; Complete Time: 13:01 pkl 08/25 14:49 Order name: MRA Head Wo Cont; Complete Time: 16:21 EDMS 08/25 14:51 Order name: MRA Neck W/Wo Cont EDMS 08/25 16:55 Order name: Basic Metabolic Panel EDMS 08/25 16:55 Order name: Basic Metabolic Panel EDMS 08/25 16:55 Order name: NT PRO-BNP EDMS 08/25 16:55 Order name: NT PRO-BNP EDMS 08/25 16:56 Order name: CBC with Automated Diff EDMS 08/25 16:56 Order name: CBC with Automated Diff EDMS 08/25 11:56 Order name: EKG; Complete Time: 11:57 pkl 08/25 11:56 Order name: Cardiac monitoring; Complete Time: 17:50 pkl 08/25 11:56 Order name: EKG - Nurse/Tech; Complete Time: 17:50 pkl 08/25 11:56 Order name: IV Saline Lock; Complete Time: 12:37 pkl 08/25 11:56 Order name: Labs collected and sent; Complete Time: 17:50 pkl 08/25 11:56 Order name: O2 Per Protocol; Complete Time: 17:50 pkl 08/25 11:56 Order name: O2 Sat Monitoring; Complete Time: 17:50 pkl 08/25 15:40 Order name: Brain Wo Cont; Complete Time: 16:57 EDMS 08/25 16:55 Order name: CONS Physician Consult EDMS 08/25 16:55 Order name: 60g Consistent Carbohydrate (ADA 1800/2000) EDMS Administered Medications: 12:37 Drug: NS 0.9% 1000 ml Route: IV; Rate: 100 ml/hr; Site: right antecubital; sl2 14:00 Follow up: IV Status: Completed infusion; IV Intake: 1000ml sl2 16:30 Drug: Metoprolol 5 mg Route: IVP; Site: right antecubital; sl2 17:50 Follow up: Response: No adverse reaction; Marked relief of symptoms sl2 17:38 Drug: morphine 4 mg Route: IVP; Site: right antecubital; sl2 17:49 Follow up: Response: No adverse reaction; Pain is decreased sl2 17:41 Drug: Zofran (Ondansetron) 4 mg Route: IVP; Site: right antecubital; sl2 17:50 Follow up: Response: No adverse reaction; Marked relief of symptoms sl2 Disposition Summary: 08/25/21 16:38 Hospitalization Ordered Hospitalization Status: Observation pkl Provider: James Rg pkl Location: Telemetry/MedSurg (observation) pkl Condition: Stable pkl Problem: new pkl Symptoms: are unchanged pkl Bed/Room Type: Standard pkl Room Assignment: 222(08/25/21 19:08) Diagnosis - Near syncope. Dyspnea. Mild CHF pkl Forms: - Medication Reconciliation Form pkl - SBAR form pkl Signatures: Dispatcher [employer] EDNohemi Albert RN RN dw Sandor Rich MD MD pkl Bridget Dhillon RN RN aa5 Fawn Gonzalez RN RN sl2 Corrections: (The following items were deleted from the chart) 14:49 13:03 MR STROKE PROTOCOL+MRI.RAD.BRZ ordered. EDMS EDMS 15:40 14:51 Brain W/Wo Cont ordered. EDMS EDMS 16:58 16:57 HEMOGLOBIN A1C+CHEM A1C.LAB.BRZ ordered. EDMS EDMS 19:08 16:38 pkl dw
--- NOTE | 2021-08-25 16:39 | ER ---
Nurse's Notes [facility] Name: Armond Beltrán Age: 66 yrs Sex: Male : 1955 Arrival Date: 08/25/2021 Time: 11:22 Bed 20 Private MD: James Rg V Diagnosis: Near syncope. Dyspnea. Mild CHF Presentation: 08/25 11:38 Chief complaint: Patient states: feels like passing out, c/o SOB since today. Denies aa5 recent illness but reports pain all over body. Coronavirus screen: muscle pain. Ebola Screen: No symptoms or risks identified at this time. Initial Sepsis Screen: Does the patient meet any 2 criteria? No. Patient's initial sepsis screen is negative. Does the patient have a suspected source of infection? No. Patient's initial sepsis screen is negative. Risk Assessment: Do you want to hurt yourself or someone else? Patient reports no desire to harm self or others. Onset of symptoms was August 25, 2021. 11:38 Method Of Arrival: Wheelchair aa 11:38 Acuity: KEVIN 3 aa5 Triage Assessment: 19:30 Respiratory: Airway is patent the patient reports symptoms have resolved. sl2 19:30 Respiratory: Onset: The symptoms/episode began/occurred today. sl2 Historical: - Allergies: 11:40 NKA; aa5 - PMHx: 11:40 Chronic pain; Diabetes - NIDDM; Hypertension; Myocardial infarction; aa5 - Immunization history:: Client reports receiving the 2nd dose of the Covid vaccine. - Social history:: Smoking status: Patient denies any tobacco usage or history of. Screenin:40 Abuse screen: Denies threats or abuse. Nutritional screening: No deficits noted. On. sl2 Tuberculosis screening: No symptoms or risk factors identified. Never had TB. Possible symptoms: None Risk factors: None. Fall Risk None identified. No fall in past 12 months (0 pts). Assessment: 12:38 Reassessment: Portable CXR in progress at bedside. sl2 12:40 General: Appears uncomfortable, obese, well developed, Behavior is cooperative, sl2 appropriate for age, anxious, fussy. 12:40 Pain: Denies pain. Neuro: No deficits noted. Reports dizziness, Denies. Cardiovascular: sl2 No deficits noted. Rhythm is sinus rhythm with unifocal PVCs. Respiratory: Airway is patent Trachea midline Respiratory effort is even, unlabored, Respiratory pattern is regular, Breath sounds are clear bilaterally. GI: No deficits noted. No signs and/or symptoms were reported involving the gastrointestinal system. Abdomen is round obese, Bowel sounds present X 4 quads. Abd is soft and non tender. : No deficits noted. No signs and/or symptoms were reported regarding the genitourinary system. EENT: No deficits noted. No signs and/or symptoms were reported regarding the EENT system. Derm: No deficits noted. No signs and/or symptoms reported regarding the dermatologic system. Musculoskeletal: No deficits noted. No signs and/or symptoms reported regarding the musculoskeletal system. 19:40 Reassessment: Patient appears in no apparent distress at this time. Resting in bed \T\ sl2 talking with sisters \T\ bedside; voices no complaints; instructed on admitting to room # 222 with v/u; CM intact \T\ monitoring A fib with VR 80's-90's with BBB; O2 intact \T\ 2L/NBP; O2 sat 97%; afebrile; NAD; report telephoned to TIARRA Goldberg. Patient states symptoms have improved. Vital Signs: 11:38 BP 145 / 90; Pulse 96; Resp 18 S; Temp 98.2(TE); Pulse Ox 95% on R/A; Weight 142.88 kg aa5 (R); Height 6 ft. 1 in. (185.42 cm) (R); 12:00 BP 144 / 98; Pulse 95; Resp 18; Temp 98.2(O); Pulse Ox 97% on R/A; sl2 13:00 BP 165 / 91; Pulse 94; Resp 20; Pulse Ox 97% on R/A; sl2 14:00 BP 148 / 63; Pulse 94; Resp 18; Temp 98.4(O); Pulse Ox 97% on R/A; sl2 15:50 BP 150 / 92; Pulse 111; Resp 20; Temp 98.2(O); Pulse Ox 99% on R/A; sl2 16:00 BP 153 / 87; Pulse 110; Resp 20; Pulse Ox 98% on R/A; sl2 17:00 BP 158 / 94; Pulse 96; Resp 20; Pulse Ox 97% on R/A; sl2 17:30 BP 131 / 51; Pulse 93; Resp 18; Temp 98.4; Pulse Ox 99% on R/A; sl2 18:30 BP 100 / 62; Pulse 97; Resp 18; Temp 98.2(O); Pulse Ox 99% on 2 lpm NC; sl2 19:30 BP 140 / 83; Pulse 91; Resp 20; Temp 98.4; Pulse Ox 97% on 2 lpm NC; sl2 11:38 Body Mass Index 41.56 (142.88 kg, 185.42 cm) aa5 ED Course: 11:22 Patient arrived in ED. as 11:22 James Rg MD is Private Physician. as 11:38 Arm band placed on. aa5 11:40 Triage completed. aa5 11:41 Sandor Rich MD is Attending Physician. pkl 12:18 Fawn Gonzalez, TIARRA is Primary Nurse. sl2 12:[address] via wheelchair. sl2 12:33 CT Head Brain wo Cont In Process Unspecified. EDMS 12:33 CT Head Angio In Process Unspecified. EDMS 12:33 CT Neck Angio In Process Unspecified. EDMS 12:33 CT Chest For PE Angio In Process Unspecified. EDMS 12:37 Patient moved back from CT. sl2 12:40 Patient has correct armband on for positive identification. Placed in gown. Bed in low sl2 position. Call light in reach. Side rails up X2. 12:40 No provider procedures requiring assistance completed. sl2 12:42 XRAY Chest (1 view) In Process Unspecified. EDMS 12:58 EKG done, by ED staff, reviewed by Sandor Rich MD. gd 14:50 Patient moved to radiology for completion of MRI. sl2 15:41 MRA Head Wo Cont In Process Unspecified. EDMS 15:41 Brain Wo Cont In Process Unspecified. EDMS 15:50 Patient moved back from radiology. sl2 16:30 James Rg MD is Hospitalizing Provider. pkl 19:55 Patient admitted, IV remains in place. sl2 Administered Medications: 12:37 Drug: NS 0.9% 1000 ml Route: IV; Rate: 100 ml/hr; Site: right antecubital; sl2 14:00 Follow up: IV Status: Completed infusion; IV Intake: 1000ml sl2 16:30 Drug: Metoprolol 5 mg Route: IVP; Site: right antecubital; sl2 17:50 Follow up: Response: No adverse reaction; Marked relief of symptoms sl2 17:38 Drug: morphine 4 mg Route: IVP; Site: right antecubital; sl2 17:49 Follow up: Response: No adverse reaction; Pain is decreased sl2 17:41 Drug: Zofran (Ondansetron) 4 mg Route: IVP; Site: right antecubital; sl2 17:50 Follow up: Response: No adverse reaction; Marked relief of symptoms sl2 Intake: 14:00 IV: 1000ml; Total: 1000ml. 2 Outcome: 16:38 Decision to Hospitalize by Provider. pkl 19:55 Admitted to Med/surg accompanied by tech, room 222, with oxygen, Report called to sl2 TIARRA Goldberg. 19:55 Condition: stable 19:55 Instructed on the need for admit, Demonstrated understanding of instructions. 20:18 Patient left the ED. 2 Signatures: Dispatcher [employer] EDMS Sandor Rich MD MD pkl Martinez, Amelia as Calderon, Audri, RN RN [id number] Glynn Ruggiero Sophia, RN RN sl2
[2021-08-25] MEDS ORDERED: ALBUTEROL 2.5 MG/3 ML NEB SOL NEB PRN (16:51)
[2021-08-25] MEDS ORDERED: IPRATROPIUM BROM 0.5MG/2.5ML NEB PRN (16:51)
[2021-08-25] MEDS ORDERED: GLUCAGON 1 MG/VIAL IM PRN (16:55)
[2021-08-25] MEDS ORDERED: D50W 25 GM/50 ML SYRINGE IV PRN (16:55)
[2021-08-25] MEDS ORDERED: ONDANSETRON 4 MG/2 ML VIAL ONE (17:28)
[2021-08-25] MEDS ORDERED: MORPHINE 4 MG/ML SYR ONE (17:28)
[2021-08-25] MEDS ORDERED: ZIPRASIDONE MESYLA 20 MG/VIAL IM ONE (18:39)
[2021-08-25] MEDS ORDERED: WATER FOR INJ,STERILE 10 ML ONE (18:40)
--- NOTE | 2021-08-25 21:14 | P.HP ---
Certification for Inpatient Patient admitted to: Observation With expected LOS: <2 Midnights Practitioner: I am a practitioner with admitting privileges, knowledge of patient current condition, hospital course, and medical plan of care. Services: Services provided to patient in accordance with Admission requirements found in Title 42 Section 412.3 of the Code of Federal Regulations Patient History Date of Service: 08/25/21 Reason for admission: SHORT OF BREATH History of Present Illness: LEATHA IS OBESE,DIABETIC WITH CAD COMES WITH DYSPNEA AT REST FOR TWO DAYS. HE IS IN CHORNIC PAIN AND ON NARCOITIC MEDS FROM PAIND DOCTOR. HE ALSO HAS RECURRENT CHOLECYSTITIS AND HE REFUSES TO GET SURGERY FOR IT. HE HAS NO CHEST PAIN AND SYNCOPE IS QUESTIONABLE. Allergies No Known Allergies Allergy (Verified 01/17/19 20:21) Home medications list reviewed: Yes Home Medications: Hydrocodone 10/APAP 325 [Warner 10/325*] 1 tab PO TID 09/02/19 Aspirin 81 mg PO DAILY 09/03/19 Cholecalciferol (Vitamin D3) [Vitamin D3] 2,000 unit PO DAILY 09/03/19 Finasteride [Proscar*] 5 mg PO DAILY 09/03/19 Glyburide/Metformin HCl [Glucovance 5-500 mg Tablet] 1 tab PO BID 09/03/19 Tamsulosin [Flomax*] 0.4 mg PO DAILY 09/03/19 diazePAM [Diazepam] 5 mg PO DAILY 09/03/19 Atorvastatin Calcium [Lipitor] 1 tab PO BEDTIME 02/25/20 Furosemide [Lasix*] 1 tab PO DAILY 02/25/20 Metoprolol Tartrate [Lopressor*] 1 tab PO BID 02/25/20 levoFLOXacin [Levaquin*] 500 mg PO DAILY #10 tab 02/26/20 Hydrocodone 10/APAP 325 [Warner 10/325*] 1 tab PO Q12HP PRN #30 tab 03/17/21 - Past Medical/Surgical History Diabetic: Yes -: CAD -: NIDDM -: obstructive sleep apnea -: Chronic back pain -: Hyperlipedemia -: Heart cath/with stents x3 -: laminectomy -: coronary artery bypass graft - Family History Brother -: Heart disease - Social History Alcohol use: No CD- Drugs: No Caffeine use: No Review of Systems 10-point ROS is otherwise unremarkable General: Weakness, Malaise Respiratory: Shortness of Breath Physical Examination - Vital Signs Temperature: 98.1 F Blood Pressure: 129/76 Pulse: 91 Respirations: 18 Pulse Ox (%): 94 - Physical Exam General: Oriented x3, Mild distress, Obese HEENT: Atraumatic, PERRLA, Mucous membr. moist/pink, EOMI, Sclerae nonicteric Neck: Supple, 2+ carotid pulse no bruit, No LAD, Without JVD or thyroid abnormality Respiratory: Clear to auscultation bilaterally, Normal air movement Cardiovascular: Regular rate/rhythm, Normal S1 S2 Gastrointestinal: Normal bowel sounds, No tenderness Musculoskeletal: No tenderness Integumentary: No rashes Neurological: Normal gait, Normal speech, Normal strength at 5/5 x4 extr, Normal tone, Normal affect Lymphatics: No axilla or inguinal lymphadenopathy - Studies Laboratory Data (last 24 hrs) 08/25/21 12:07: PT 14.1 H, INR 1.22 08/25/21 12:07: WBC 9.50, Hgb 16.0, Hct 48.9, Plt Count 125 L 08/25/21 12:07: Sodium 134 L, Potassium 4.0, BUN 18, Creatinine 1.36 H, Glucose 320 H, Magnesium 1.9, Total Bilirubin 1.5 H, AST 14 L, ALT 24, Alkaline Phosphatase 75 Assessment and Plan - Problems (Diagnosis) (1) CHF (congestive heart failure) Current Visit: Yes Status: Acute Plan: LASIX IV BID. ECHO WITH DOPPLER. CONSULT CARDIOLOGY MAINLY ACUTE HFPEF POSSIBLE. HE HAS HAD CATH FOLLOWING IS HIS PMH FROM MY RECORDS. Myocardial infarct [I21.9 (410.90) 0.2] Last addressed: 05/15/2019 2018 Coronary arteriosclerosis [I25.10 (414.00)] 2018 Coronary atherosclerosis of bypass graft [I25.810 (414.04)] 2018, [facility] 2018, [facility] 2018 Obstructive sleep apnea [G47.33 (327.23)] 2018 Back pain [M54.9 (724.5)] ON MONTHLY VISIT FROM PAIN DOCTORS ON MONTHLY VISIT FROM PAIN DOCTORS 2018 Chronic cholecystitis [K81.1 (575.11)] ADVISED TO GO TO DR. GOLDMAN TWICE IN LAST ONE YEAR. ADVISED TO GO TO DR. GOLDMAN TWICE IN LAST ONE YEAR. 2019 LVH (left ventricular hypertrophy) [I51.7 (429.3)] mod mod 2019 Ventricular hypokinesia [I51.89 (429.89)] mod mod 2019 Chest pain [R07.9 (786.50)] 2020 Dyspnea [R06.00 (786.09)] 2020 Morbid obesity [E66.01 (278.01) 0.3] 2019 Coronary artery disease due to type 2 diabetes mellitus [E11.59, I25.10 (250.80, 414.00) 0.3] 2020 BMI 40.0-44.9, adult [Z68.41 (V85.41) 0.3] Last addressed: Never (2) Chest pain Onset Date: 11/28/17 Current Visit: No Status: Acute Plan: HE IS HIGH RISK WITH DM, OBESITY AND HO CABG. HE MAY NEED CATH AGAIN . DECISION PER CARDIOLOGY Qualifiers: (3) Choledocholithiasis with acute cholecystitis Current Visit: No Status: Acute - Advance Directives Does patient have a Living Will: No Does patient have a Durable POA for Healthcare: No
[2021-08-25] MEDS: FUROSEMIDE 20 MG/ 2ML VIAL IV SCH (22:14)
[2021-08-25] MEDS: INSULIN -REGULAR HUMAN 50 UNIT/0.5 ML ML SQ SCH (22:15)
[2021-08-25] MEDS: HYDROCODONE/APAP 10/325 TAB PO PRN (23:34)
[2021-08-25 23:58] VITALS: BMI 41.5
[2021-08-26 05:09] LABS: Absolute Lymphocytes (CBC) 0.7 K/uL (0.7-4.9); Basophils % 0.4 % (0-1.3); Hematocrit 43.7 % (39.6-49.0); Lymphocytes % 8.4 % (15.3-44.8); MPV 9.1 fL (7.6-11.3); RBC Red Blood Cell Count 5.04 M/uL (4.33-5.43)
[2021-08-26] MEDS: HYDROCODONE/APAP 10/325 TAB PO PRN ×4 (05:22→21:28)
[2021-08-26 05:29] LABS: Potassium 4.1 mmol/L (3.5-5.1)
[2021-08-26] MEDS: MECLIZINE HCL 12.5 MG TAB PO SCH ×3 (08:56→21:16)
[2021-08-26] MEDS: INSULIN -REGULAR HUMAN 50 UNIT/0.5 ML ML SQ SCH ×4 (08:56→21:00)
[2021-08-26] MEDS: FUROSEMIDE 20 MG/ 2ML VIAL IV SCH ×2 (08:57→17:05)
--- NOTE | 2021-08-26 11:22 | EKG ---
Test Date: 2021-08-25 Test Time: 12:04:04 Security Attendant: LATONYA MEASUREMENT RESULTS: Intervals: Rate: 91 [place]: 132 QRSD: 160 QT: 394 QTc: 484 [place]: P: 40 NJ: 132 QRS: 265 T: 12 INTERPRETIVE STATEMENTS: Sinus rhythm with premature atrial complexes Right bundle branch block Possible Lateral infarct, age undetermined Abnormal ECG Compared to ECG 03/16/2021 23:13:42 Atrial premature complex(es) now present Myocardial infarct finding now present Electronically Signed On 08-26-21 11:20:25 EMBROIDERY WORKER by Floyd Grayson
[2021-08-26] MEDS ORDERED: ACETAMINOPHEN 500 MG TAB PO PRN (16:50)
[2021-08-26] MEDS: CEFTRIAXONE 1,000 MG in NA CHLORIDE 0.9% 50 ML IVPB SCH (17:27)
--- NOTE | 2021-08-26 19:01 | RAD REPORT ---
EXAM DESCRIPTION: CTAbdomen Pelvis W Contrast - 08/26/2021 6:45 pm CLINICAL HISTORY: Abdominal pain. abd pain COMPARISON: Abdomen Pelvis W Contrast dated 10/12/2016 TECHNIQUE: Biphasic CT imaging of the abdomen and pelvis was performed with 100 ml non-ionic IV cont rast. All CT scans are performed using dose optimization technique as appropriate and may include automated exposure control or mA/KV adjustment according to patient size. FINDINGS: Subsegmental atelectasis is present in the left lung base. The liver, spleen, pancreas, adrenal glands and kidneys are within normal limits. There is moderate p neumobilia present. No bowel obstruction, free air, free fluid or abscess. 5 cm infrarenal aortic aneurysm is noted with moderate mural thrombus. The appendix is normal. No evidence of significant lymphadenopathy. Moderat e fat containing umbilical hernia. Mild lumbosacral degenerative changes. IMPRESSION: Moderate pneumobilia is noted which may be related to previous papillotomy. Mild fatty liver is present. 5 cm infrarenal abdominal aortic aneurysm, mildly enlarged since 2015 which time it measured 4.3 cm i n the same dimension Moderate fat containing umbilical hernia.
--- NOTE | 2021-08-26 21:32 | P.PN ---
Subjective Date of Service: 08/26/21 Chief Complaint: I DON'T FEEL GOOD, ACHY ALL OVER, DIZZY SOME. Subjective: No new changes HE IS NOT ABLE TO EXPLAIN DESPITE ACHY AND NOT FEEING GOOD. HE SAYS DYSPNEA IS BETTER. HE HAD FEVER THIS AFTERNOON. NURSE CALLED. I ASKED FOR TWO BLOOD CULTURES, UA AND CULTURE, CT ABDOMEN AND PELVIS WITH CONTRAST. I ASKED HER TO START ROCEPHIN IV A BROAD SPECTRUM ANTIBIOTIC HE LOOKS SICK ENOUGH TO GET TREATED BEFORE SOURCE IS IDENTIFIED. Physical Examination - Vital Signs Temperature: 97.6 F Blood Pressure: 161/80 Pulse: 58 Respirations: 16 Pulse Ox (%): 96 - Physical Exam General: Alert, Oriented x3, Mild distress, Moderate distress, Obese Neck: Supple, JVD not distended Respiratory: Clear to auscultation bilaterally Cardiovascular: No edema, Normal S1 S2 Gastrointestinal: Normal bowel sounds - Studies Laboratory Data (last 24 hrs) 08/26/21 04:46: Sodium 135 L, Potassium 4.1, BUN 19 H, Creatinine 1.26, Glucose 281 H 08/26/21 04:46: WBC 8.40, Hgb 14.5, Hct 43.7, Plt Count 107 L Assessment And Plan - Current Problems (Diagnosis) (1) CHF (congestive heart failure) Current Visit: Yes Status: Acute Plan: LASIX IV BID. ECHO WITH DOPPLER. CONSULT CARDIOLOGY MAINLY ACUTE HFPEF POSSIBLE. HE HAS HAD CATH FOLLOWING IS HIS PMH FROM MY RECORDS. Myocardial infarct [I21.9 (410.90) 0.2] Last addressed: 05/15/2019 2018 Coronary arteriosclerosis [I25.10 (414.00)] 2018 Coronary atherosclerosis of bypass graft [I25.810 (414.04)] 2018, [facility] 2018, [facility] 2018 Obstructive sleep apnea [G47.33 (327.23)] 2018 Back pain [M54.9 (724.5)] ON MONTHLY VISIT FROM PAIN DOCTORS ON MONTHLY VISIT FROM PAIN DOCTORS 2018 Chronic cholecystitis [K81.1 (575.11)] ADVISED TO GO TO DR. GOLDMAN TWICE IN LAST ONE YEAR. ADVISED TO GO TO DR. GOLDMAN TWICE IN LAST ONE YEAR. 2019 LVH (left ventricular hypertrophy) [I51.7 (429.3)] mod mod 2019 Ventricular hypokinesia [I51.89 (429.89)] mod mod 2019 Chest pain [R07.9 (786.50)] 2020 Dyspnea [R06.00 (786.09)] 2019 Morbid obesity [E66.01 (278.01) 0.3] 2019 Coronary artery disease due to type 2 diabetes mellitus [E11.59, I25.10 (250.80, 414.00) 0.3] 2020 BMI 40.0-44.9, adult [Z68.41 (V85.41) 0.3] Last addressed: Never (2) Chest pain Onset Date: 11/28/17 Current Visit: No Status: Acute Plan: HE IS HIGH RISK WITH DM, OBESITY AND HO CABG. HE MAY NEED CATH AGAIN . DECISION PER CARDIOLOGY Qualifiers: (3) Choledocholithiasis with acute cholecystitis Current Visit: No Status: Acute (4) FUO (fever of unknown origin) Current Visit: Yes Status: Acute Plan: IT IS UNCLEAR ABOUT THE SOURCE IF FEVER. I SEE NO PNEUMONIA, UTI, DIARRHEA, CELLULTIS. IT IS POSSIBLE TO HAVE ENDOCARDITIS WITH FEVER AND ACHES ALL OVER. IT CAN BE VIRAL FEVER. CT ABODMEN SHOWS NO SOURCE OF INFECTION. AAA IS SLIGHTLY BIGGER. DR. WINSLOW CAN FOLLOW UP BUT MR. SPENCE IS NOT COMPLIANT WITH VISITS. WE MAY HAVE TO AVOID CATH IN AM NOW THAT HE HAS FEVER AND DOES NOT HAVE ACUTE CORONARY SYNDROME. I WILL CALL DR. WINSLOW AGAIN.
[2021-08-26] MEDS ORDERED: GLUCAGON 1 MG/VIAL IM PRN (21:36)
[2021-08-26] MEDS ORDERED: D50W 25 GM/50 ML SYRINGE IV PRN (21:36)
[2021-08-27] MEDS: HYDROCODONE/APAP 10/325 TAB PO PRN ×2 (04:33→17:08)
[2021-08-27] MEDS: INSULIN -REGULAR HUMAN 50 UNIT/0.5 ML ML SQ SCH ×4 (09:29→21:00)
[2021-08-27] MEDS: FINASTERIDE 5 MG TAB PO SCH (09:30)
[2021-08-27] MEDS: HYDROCODONE/APAP 10/325 TAB PO SCH ×3 (09:30→21:14)
[2021-08-27] MEDS: TAMSULOSIN 0.4 MG SR CAP PO SCH (09:30)
[2021-08-27] MEDS: ASPIRIN 81 MG CHEWABLE TABLET PO SCH (09:30)
[2021-08-27] MEDS: FUROSEMIDE 20 MG/ 2ML VIAL IV SCH ×2 (09:31→17:45)
[2021-08-27] MEDS: CEFTRIAXONE 1,000 MG in NA CHLORIDE 0.9% 50 ML IVPB SCH (09:31)
[2021-08-27] MEDS: MECLIZINE HCL 12.5 MG TAB PO SCH ×3 (09:34→21:13)
--- NOTE | 2021-08-27 15:00 | ECHO ---
HEIGHT: 6 ft 1 in WEIGHT: 315 lb 0 oz DATE OF STUDY: 08/27/[address]: James Rg MD 2-DIMENSIONAL: YES M.MODE: YES DOPPLER: YES COLOR FLOW: YES TDS: NO PORTABLE: NO DEFINITY: NO BUBBLE STUDY: NO DIAGNOSIS: ENDOCARDITIS CARDIAC HISTORY: CATHERIZATION: YES SURGERY: YES PROSTHETIC VALVE: NO PACEMAKER: NO MEASUREMENTS (cm) DIASTOLIC (NORMALS) SYSTOLIC (NORMALS) IVSd 1.2 (0.6-1.2) LA Diam 3.4 (1.9-4.0) LVEF 55-60% LVIDd 5.2 (3.5-5.7) LVIDs 3.8 (2.0-3.5) %FS 28% LVPWd 1.3 (0.6-1.2) Ao Diam 3.3 (2.0-3.7) 2 DIMENSIONAL ASSESSMENT: RIGHT ATRIUM: NORMAL LEFT ATRIUM: NORMAL RIGHT VENTRICLE: NORMAL LEFT VENTRICLE: NORMAL TRICUSPID VALVE: NORMAL MITRAL VALVE: NORMAL PULMONIC VALVE: NORMAL AORTIC VALVE: THICKENED, NO AORTIC STENOSIS PERICARDIAL EFFUSION: NONE AORTIC ROOT: NORMAL LEFT VENTRICULAR WALL MOTION: NORMAL. DOPPLER/COLOR FLOW: SEE BELOW. COMMENTS: NORMAL LEFT VENTRICULAR EJECTION FRACTION 55-60%. NORMAL WALL MOTION. TECHNOLOGIST: OLGA MORRIS
--- NOTE | 2021-08-27 16:37 | RAD REPORT ---
EXAM DESCRIPTION: US - Abdomen Exam Limited - 08/27/2021 4:06 pm CLINICAL HISTORY: fever unknown, cholecystitis COMPARISON: Abdomen Pelvis W Contrast dated 08/26/2021 FINDINGS: Well filled but nondilated gallbladder is seen with no wall thickening or pericholecystic fluid identified. There is dirty shadowing present believed to be from air within the lumen of the ga llbladder. Pneumobilia was seen on the prior day CT study. Patient has probably undergone previous sp hincterotomy/ papillotomy. A few small gallstones are seen along with a small quantity of sludge. Common bile duct is prominent up to 13 mm in diameter. No common duct stones confirmed. IMPRESSION: Small stones and a small amount of sludge within the lumen of a normal-sized gallbladder . No wall thickening or pericholecystic fluid. Common bile duct is enlarged at 13 mm but no duct stone was identifiable. Air is evident in the gallbladder lumen. This was seen on the prior day CT study and probably due to prior sphincterotomy/ papillotomy.
--- NOTE | 2021-08-27 16:45 | P.PN ---
Subjective Date of Service: 08/27/21 Chief Complaint: I DON'T FEEL GOOD, ACHY ALL OVER, DIZZY SOME. Subjective: Improving HE IS NOT ABLE TO EXPLAIN DESPITE ACHY AND NOT FEEING GOOD. HE SAYS DYSPNEA IS BETTER. HE HAD FEVER THIS AFTERNOON. NURSE CALLED. I ASKED FOR TWO BLOOD CULTURES, UA AND CULTURE, CT ABDOMEN AND PELVIS WITH CONTRAST. I ASKED HER TO START ROCEPHIN IV A BROAD SPECTRUM ANTIBIOTIC HE LOOKS SICK ENOUGH TO GET TREATED BEFORE SOURCE IS IDENTIFIED. HE FEELS LOT BETTER. DENIES ANY ABDOMEN PAIN. Physical Examination - Vital Signs Temperature: 100.1 F Blood Pressure: 119/77 Pulse: 81 Respirations: 24 Pulse Ox (%): 94 - Physical Exam General: In no apparent distress, Oriented x3, Obese HEENT: Atraumatic, PERRLA, EOMI Neck: Supple, JVD not distended Respiratory: Clear to auscultation bilaterally, Normal air movement Cardiovascular: Regular rate/rhythm, Normal S1 S2 Gastrointestinal: Normal bowel sounds, No tenderness Musculoskeletal: No tenderness Integumentary: No rashes Neurological: Normal speech, Normal tone, Normal affect Lymphatics: No axilla or inguinal lymphadenopathy - Studies Medications List Reviewed: Yes Assessment And Plan - Current Problems (Diagnosis) (1) CHF (congestive heart failure) Current Visit: Yes Status: Acute Plan: LASIX IV BID. ECHO WITH DOPPLER. CONSULT CARDIOLOGY MAINLY ACUTE HFPEF POSSIBLE. HE HAS HAD CATH FOLLOWING IS HIS PMH FROM MY RECORDS. Myocardial infarct [I21.9 (410.90) 0.2] Last addressed: 05/15/2019 2018 Coronary arteriosclerosis [I25.10 (414.00)] 2018 Coronary atherosclerosis of bypass graft [I25.810 (414.04)] 2018, [facility] 2018, [facility] 2018 Obstructive sleep apnea [G47.33 (327.23)] 2018 Back pain [M54.9 (724.5)] ON MONTHLY VISIT FROM PAIN DOCTORS ON MONTHLY VISIT FROM PAIN DOCTORS 2018 Chronic cholecystitis [K81.1 (575.11)] ADVISED TO GO TO DR. GOLDMAN TWICE IN LAST ONE YEAR. ADVISED TO GO TO DR. GOLDMAN TWICE IN LAST ONE YEAR. 2019 LVH (left ventricular hypertrophy) [I51.7 (429.3)] mod mod 2019 Ventricular hypokinesia [I51.89 (429.89)] mod mod 2019 Chest pain [R07.9 (786.50)] 2020 Dyspnea [R06.00 (786.09)] 2019 Morbid obesity [E66.01 (278.01) 0.3] 2019 Coronary artery disease due to type 2 diabetes mellitus [E11.59, I25.10 (250.80, 414.00) 0.3] 2020 BMI 40.0-44.9, adult [Z68.41 (V85.41) 0.3] Last addressed: Never (2) Chest pain Onset Date: 11/28/17 Current Visit: No Status: Acute Plan: HE IS HIGH RISK WITH DM, OBESITY AND HO CABG. HE MAY NEED CATH AGAIN . DECISION PER CARDIOLOGY Qualifiers: (3) Choledocholithiasis with acute cholecystitis Current Visit: No Status: Acute (4) FUO (fever of unknown origin) Current Visit: Yes Status: Acute Plan: IT IS UNCLEAR ABOUT THE SOURCE IF FEVER. I SEE NO PNEUMONIA, UTI, DIARRHEA, CELLULTIS. IT IS POSSIBLE TO HAVE ENDOCARDITIS WITH FEVER AND ACHES ALL OVER. IT CAN BE VIRAL FEVER. CT ABODMEN SHOWS NO SOURCE OF INFECTION. AAA IS SLIGHTLY BIGGER. DR. WINSLOW CAN FOLLOW UP BUT MR. SPENCE IS NOT COMPLIANT WITH VISITS. WE MAY HAVE TO AVOID CATH IN AM NOW THAT HE HAS FEVER AND DOES NOT HAVE ACUTE CORONARY SYNDROME. I WILL CALL DR. WINSLOW AGAIN. SONOGRAM NONSPECFIC ORDER HIDA SCAN. HE MAY HAVE THIS OR ENDOCARDITIS ORIGIN OF INFECION. UA IS NOT DONE YET. I REMINDED NURSES TWICE.
[2021-08-27] MEDS ORDERED: ENOXAPARIN 40 MG/0.4 ML SQ SCH (17:00)
[2021-08-27 17:31] LABS: Urine Appearance CLEAR (Clear); Urine Bilirubin NEGATIVE (Negative); Urine Blood NEGATIVE (Negative); Urine Color YELLOW (Yellow); Urine Glucose 3+ (Negative); Urine Protein NEGATIVE (Negative); Urine Specific Gravity 1.015 (1.005-1.030); Urine Urobilinogen >=8.0 mg/dL (0.2-1.0)
[2021-08-27 17:52] LABS: Urine Microscopic Reflex ORDER UMIC
[2021-08-27 19:01] LABS: Urine Bacteria <20 /HPF (NONE SEEN); Urine RBC <5 /HPF (NONE SEEN)
[2021-08-27] MEDS ORDERED: INSULIN GLARGINE 100 UNITS/ML SQ SCH (21:00)
[2021-08-28] MEDS: INSULIN -REGULAR HUMAN 50 UNIT/0.5 ML ML SQ SCH ×2 (07:30→11:30)
--- NOTE | 2021-08-28 08:22 | RAD REPORT ---
EXAM DESCRIPTION: NM - Hepatobiliary System W/ Ph - 08/28/2021 7:57 am CLINICAL HISTORY: fuo, cholelithiasis COMPARISON: None TECHNIQUE: The patient was administered 6.6 mCi Tc99m Choletec. Imaging of the right upper quadrant was performed initially for up to 60 minutes. The patient was administered synthetic CCK over a slow 30 minute infusion. ISELA measurements were obtained of the gallbladder and an ejection fraction calcu lated. Synthetic CCK dosage was 2.9 mgm. FINDINGS: There is homogeneous uptake of radiopharmaceutical throughout the liver. There is no delay in visualization of the biliary tree or duodenum. Gallbladder visualizes within normal time limits. The calculated ejection fraction is 87%, well withi n normal limits. The patient reported no pain prior to the procedure and no symptoms during or subsequent to synthetic CCK infusion. IMPRESSION: Patent cystic duct and patent sphincter of Oddi. No delay in visualization of the gallbl adder, biliary tree, or duodenum. Ejection fraction is 87%, well within normal limits. Patient reported no pre-procedure pain, and no pain during or subsequent to synthetic CCK infusion.
[2021-08-28 08:40] VITALS: O2SAT 94
[2021-08-28] MEDS: CEFTRIAXONE 1,000 MG in NA CHLORIDE 0.9% 50 ML IVPB SCH (10:17)
[2021-08-28] MEDS: ASPIRIN 81 MG CHEWABLE TABLET PO SCH (10:17)
[2021-08-28] MEDS: TAMSULOSIN 0.4 MG SR CAP PO SCH (10:18)
[2021-08-28] MEDS: FINASTERIDE 5 MG TAB PO SCH (10:18)
[2021-08-28] MEDS: HYDROCODONE/APAP 10/325 TAB PO SCH ×2 (10:18→14:03)
[2021-08-28] MEDS: FUROSEMIDE 20 MG/ 2ML VIAL IV SCH (10:19)
[2021-08-28] MEDS: MECLIZINE HCL 12.5 MG TAB PO SCH ×2 (10:23→14:03)
[2021-08-28 14:27] VITALS: BP 147/80; TEMP 96.3
[2021-08-28] MEDS ORDERED: INSULIN GLARGINE 100 UNITS/ML SQ SCH (21:00)
--- OUTSIDE RECORDS SUMMARY | 2021-08-29 18:08 | XMS REPORT | Continuity of Care Document ---
:1955 Author Organization [facility] t Address [address] [place] [address] Dr. Ob[address]. [address] [place] [address] Care Team Providers Name Role Phone DORETHA MENDOZA Attending Clinician Unavailable Yahaira Mojica Attending Clinician Yahaira MOJICA Attending Clinician Unavailable Doctor Unassigned, Name Attending Clinician Unavailable BEV ORTIZ Attending Clinician Unavailable BEV ORTIZ Admitting Clinician Unavailable Payers Payer Name Policy Type Policy Number Effective Date Expiration Date [facility] [id number] 2015 MEDICARE GOLD 00:00:00 [employer] MEDICARE ADV [id number] 2017 00:00:00 Problems This patient has no known problems. Allergies, Adverse Reactions, Alerts Allergy Allergy Status Severity Reaction(s) Onset Inactive Treating Comm ents Source Name Type Date Date Clinician NO KNOWN Drug Active Univers ALLERGIE Class [facility] Medications This patient has no known medications. Procedures This patient has no known procedures. Encounters Start End Encounter Admission Attending Care Care Encounter Source Date/Time Date/Time Type Type Clinicians Facility Department ID 2021-01-03 2021-01-03 Outpatient [facility] [id number] Univers 17:10:00 17:10:00 [facility] 2020-12-13 2020-12-13 Outpatient Sen MENDOZA [facility] [id number] Univers 16:00:00 16:00:00 DORETHA [facility] 2020-10-30 2020-10-30 [facility] Orestes Mojica [facility] [id number] 14:49:11 23:59:00 Encounter Yahaira Hughes [id number] [place] [id number] [place] [id number] 2020-10-30 2020-10-30 Outpatient ORESTES FOSS [facility] [id number] Univers 00:00:00 00:00:00 [facility] 2020-10-30 2020-10-30 Orders Doctor ATUL [id number] 00:00:00 00:00:00 Only Unassigned, AMIE [id number] Nenzel [facility] [id number] Results Test Description Test Time Test Comments Results Result Comments Source SARS-COV2/RT-PCR ([facility]) 2020-02-25 10:48:00 Test Item Value Reference Range Interpretation Comme nts SARS-COV2/RT-PCR (test code = 8488877) Not Detected Not Detected, N egative SARS-COV-2 PERFORMING LAB (test code = [facility] 8020499) Negative results do not preclude SARS-CoV-2 infection [...] of the Act.Fact Sheet for Healthcare Pro viders:https://www.Training Amigo.com/Documents/Xpert%20Xpress%20SARS%20CoV-2/Fact%20Sh eets/302-3802%28KWZH-TYP-6%20HEALTHCARE%20PROVIDERS%20FACT%20SHEET.pdfFact Sheet for Healthcare Patients:https://www.[employer]qu[employer]/Documents/Xpert%20Xpress%20SARS%20CoV-2/Fact%20Sheets/302-3801%20SARS-COV -2%20PATIENT%20FACT%20SHEET.pdfPerforming Laboratory:[place] [address] [address] [place], [place] [address]EBDD-DCGEXDQ [id number] 12:24:00 Test Item Value Reference Range Interpretation Comments POC-GLUCOSE METER 255 mg/dL 70-110 H TESTED AT [place] [address] ([facility]) (test code = [facility] Sen [facility] 1538) [address]391 POCT-GLUCOSE [id number] 08:35:00 Test Item Value Reference Range Interpretation Comments POC-GLUCOSE METER 127 mg/dL 70-110 H TESTED AT [place] [address] ([facility]) (test code = [facility] Sen [facility] 1538) 02194 POCT-GLUCOSE [id number] 00:25:00 Test Item Value Reference Range Interpretation Comments POC-GLUCOSE METER 177 mg/dL 70-110 H TESTED AT [place] [address] ([facility]) (test code = [facility] 1538) 18891 HEMOGLOBIN [id number] 14:20:00 Test Item Value Reference Range Interpretation Comments HEMOGLOBIN A1C (BEAKER) (test code = 6.9 % 4.3-6.1 H 368) BASIC METABOLIC [id number] 07:34:00 Test Item Value Reference Range Interpretation [...] ESTIMATED GFR. CBC W/PLT COUNT & AUTO [id number] 06:38:00 Test Item Value Reference Range Interpretation [...] PERCENT (BEAKER) (test code = 2801) POCT-GLUCOSE [id number] 21:40:00 Test Item Value Reference Range Interpretation Comments POC-GLUCOSE METER 171 mg/dL 70-110 H TESTED AT [facility] 6720 (BEAKER) (test code = SADA Chatterjee [facility] 1538) 17096 POCT-GLUCOSE [id number] 18:53:00 Test Item Value Reference Range Interpretation Comments POC-GLUCOSE METER 136 mg/dL 70-110 H TESTED AT [facility] 6720 ([facility]) (test code = SADA Chatterjee [facility] 1538) [address] BASIC METABOLIC [id number] 05:58:00 Test Item Value Reference Range Interpretation [...] m DATA TO CALCULA TE ESTIMATED GFR. [id number] 05:57:00 Test Item Value Reference Range Interpretation Comments MAGNESIUM (BEAKER) (test code = 1.9 mg/dL 1.6-2.6 627) CBC W/PLT COUNT & AUTO [id number] 05:11:00 Test Item Value Reference Range Interpretation [...] PERCENT (BEAKER) (test code = 2801) POCT-GLUCOSE [id number] 21:45:00 Test Item Value Reference Range Interpretation Comments POC-GLUCOSE METER 177 mg/dL 70-110 H TESTED AT [facility] 6720 ([facility]) (test code = SADA Chatterjee [place] 1538) [address] POCT-GLUCOSE [id number] 18:49:00 Test Item Value Reference Range Interpretation Comments POC-GLUCOSE METER 216 mg/dL 70-110 H TESTED AT [facility] 6720 ([facility]) (test code = [facility] Sen [place] 1538) [address] POCT-GLUCOSE [id number] 09:56:00 Test Item Value Reference Range Interpretation Comments POC-GLUCOSE METER 202 mg/dL 70-110 H TESTED AT [facility] 67 ([facility]) (test code = [facility] Sen [place] 1538) [address] [id number] 09:37:00 Test Item Value Reference Range Interpretation [...] for patients with mechanical heart valves.BASIC METABOLIC [id number] 09:24:00 Test Item Value Reference Range Interpretation [...] m DATA TO CALCULA TE ESTIMATED GFR. [id number] 09:16:00 Test Item Value Reference Range Interpretation Comments MAGNESIUM (BEAKER) (test code = 1.8 mg/dL 1.6-2.6 627) CBC W/PLT COUNT & AUTO [id number] 08:53:00 Test Item Value Reference Range Interpretation [...] PERCENT (BEAKER) (test code = 2801) POCT-GLUCOSE [id number] 21:32:00 Test Item Value Reference Range Interpretation Comments POC-GLUCOSE METER 200 mg/dL 70-110 H TESTED AT [place] [address] ([facility]) (test code = [facility] 1538) [address]70 POCT-GLUCOSE [id number] 17:42:00 Test Item Value Reference Range Interpretation Comments POC-GLUCOSE METER 191 mg/dL 70-110 H TESTED AT [place] [address] ([facility]) (test code = [facility] 1538) [address] HEMOGLOBIN AND [id number] 15:51:00 Test Item Value Reference Range Interpretation Comments HEMOGLOBIN (BEAKER) (test code = 7.4 GM/DL 13.7-17.5 L 410) HEMATOCRIT ([facility]) (test code = 23.9 % 40.1-51.0 L 411) POCT-GLUCOSE [id number] 13:02:00 Test Item Value Reference Range Interpretation Comments POC-GLUCOSE METER 190 mg/dL 70-110 H TESTED AT [place] [address] ([facility]) (test code = [facility] 1538) [address]29 POCT-GLUCOSE [id number] 08:10:00 Test Item Value Reference Range Interpretation Comments POC-GLUCOSE METER 176 mg/dL 70-110 H TESTED AT [place] [address] ([facility]) (test code = [facility] 1538) [address] RAD, CHEST, 1 VIEW, NON [id number] 07:47:00Reason for exam:->pl effusionShould this be performed at the bedside?->YesFINAL REPORT Chest one view compared to November 30 Discussion: Mild pulmonary congestion and probable left lower lung atelectasis. I could not exclude small left effusion. No pneumothorax. IMPRESSIONS: Similar cardiopulmonary appearance. Signed: Atul Mcdonough Verified Date/Time: 12/01/2017 07:47:00 Reading Location: [facility] Radiology Reading Room BASIC METABOLIC [id number] 05:25:00 Test Item Value Reference Range Interpretation [...] m DATA TO CALCULA TE ESTIMATED GFR. [id number] 05:18:00 Test Item Value Reference Range Interpretation Comments MAGNESIUM (BEAKER) (test code = 1.8 mg/dL 1.6-2.6 627) CBC W/PLT COUNT & AUTO [id number] 04:59:00 Test Item Value Reference Range Interpretation [...] PERCENT (BEAKER) (test code = 2801) POCT-GLUCOSE [id number] 22:11:00 Test Item Value Reference Range Interpretation Comments POC-GLUCOSE METER 190 mg/dL 70-110 H TESTED AT [facility] 6720 (BEAKER) (test code = SADA Chatterjee [place] 1538) [address] POCT-GLUCOSE [id number] 16:58:00 Test Item Value Reference Range Interpretation Comments POC-GLUCOSE METER 193 mg/dL 70-110 H TESTED AT [place] [address] ([facility]) (test code = SADA Chatterjee [facility] 1538) [address] CBC (HEMOGRAM ONLY)2017-11-30 13:05:00 Test Item Value [...] code = 412) PLATELET COUNT (BEAKER) (test 128 K/CU MM 150-450 L code = 756) MEAN PLATELET VOLUME (BEAKER) 11.8 fL 9.4-12.4 (test code = 754) NUCLEATED RED BLOOD CELLS 0 /100 WBC 0-0 (BEAKER) (test code = 413) POCT-GLUCOSE [id number] 12:06:00 Test Item Value Reference Range Interpretation Comments POC-GLUCOSE METER 142 mg/dL 70-110 H TESTED AT [place] [address] ([facility]) [facility] 1538) [address]85 POCT-GLUCOSE [id number] 09:23:00 Test Item Value Reference Range Interpretation Comments POC-GLUCOSE METER 108 mg/dL 70-110 TESTED AT [place] [address] ([facility]) (test code = [place]ADA [place] 1538) [address] [id number] 05:44:00 Test Item Value Reference Range Interpretation Comments ACTIVATED CLOTTING TIME 103 sec TEST ED AT [place] [address] ([facility]) (test code = [place] 441) [address] [id number] 05:44:00 Test Item Value Reference Range Interpretation Comments ACTIVATED CLOTTING TIME 439 sec TEST ED AT [place] [address] ([facility]) (test code = [place] 441) [address] [id number] 05:44:00 Test Item Value Reference Range Interpretation Comments ACTIVATED CLOTTING TIME 604 sec TEST ED AT [place] [address] ([facility]) (test code = [place] 441) [address] [id number] 05:44:00 Test Item Value Reference Range Interpretation Comments ACTIVATED CLOTTING TIME 444 sec TEST ED AT [place] [address] ([facility]) (test code = [place] 441) [address] POCT-GLUCOSE [id number] 04:45:00 Test Item Value Reference Range Interpretation Comments POC-GLUCOSE METER 122 mg/dL 70-110 H TESTED AT [place] [address] ([facility]) (test code = [place] 1538) [address] RAD, CHEST, 1 VIEW, NON [id number] 04:40:00while patient is intubated or has chest [...] MDReport Verified Date/Time: 11/30/2017 04:40:05 Reading Location: [address] Reading Room CBC W/PLT COUNT & AUTO [id number] 03:49:00 Test Item Value Reference Range Interpretation Comments WHITE BLOOD CELL COUNT (BEAKER) 7.6 K/ L 3.5-10.5 (test code = [...] (BEAKER) (test code = 2801) BASIC METABOLIC [id number] 03:49:00 Test Item Value Reference Range Interpretation [...] m DATA TO CALCULA TE ESTIMATED GFR. [id number] 03:42:00 Test Item Value Reference Range Interpretation Comments MAGNESIUM (BEAKER) (test code = 1.9 mg/dL 1.6-2.6 627) POCT-GLUCOSE [id number] 03:04:00 Test Item Value Reference Range Interpretation Comments POC-GLUCOSE METER 143 mg/dL 70-110 H TESTED AT [facility] 67 ([facility]) (test code = SADA Chatterjee [facility] 1538) [address] POCT-GLUCOSE [id number] 02:04:00 Test Item Value Reference Range Interpretation Comments POC-GLUCOSE METER 146 mg/dL 70-110 H TESTED AT [facility] 6720 ([facility]) (test code = SADA Chatterjee [facility] 1538) 76130 POCT-GLUCOSE [id number] 01:04:00 Test Item Value Reference Range Interpretation Comments POC-GLUCOSE METER 203 mg/dL 70-110 H TESTED AT [facility] 6720 ([facility]) (test code = SADA Chatterjee [facility] 1538) [address] [id number] 01:03:00 Test Item Value Reference Range Interpretation Comments MAGNESIUM (BEAKER) (test code = 2.1 mg/dL 1.6-2.6 627) [id number] 01:03:00 Test Item Value Reference Range Interpretation Comments POTASSIUM (BEAKER) (test code = 4.3 meq/L 3.5-5.1 379) CALCIUM, [id number] 00:29:00 Test Item Value Reference Range Interpretation Comments CALCIUM IONIZED (BEAKER) (test 1.08 mmol/L 1.12-1.27 L code = 698) PH, BLOOD (BEAKER) (test code = 7.39 1810) POCT-GLUCOSE [id number] 00:09:00 Test Item Value Reference Range Interpretation Comments POC-GLUCOSE METER 214 mg/dL 70-110 H TESTED AT [place] [address] ([facility]) (test code = [facility] Sen [facility] 1538) [address] POCT-GLUCOSE [id number] 22:51:00 Test Item Value Reference Range Interpretation Comments POC-GLUCOSE METER 179 mg/dL 70-110 H TESTED AT [place] [address] (BEAKER) (test code = [facility] Sen [facility] 1538) [address]803 POCT-GLUCOSE [id number] 22:13:00 Test Item Value Reference Range Interpretation Comments POC-GLUCOSE METER 206 mg/dL 70-110 H TESTED AT [place] [address] (BEAKER) (test code = [facility] Sen [facility] 1538) [address] BLOOD GAS, [id number] 21:08:00 Test Item Value Reference Range Interpretation [...] = 1819) 36.0 % Post extubation ABGPOCT-GLUCOSE [id number] 21:03:00 Test Item Value Reference Range Interpretation Comments POC-GLUCOSE METER 197 mg/dL 70-110 H TESTED AT [place] [address] ([facility]) (test code = [facility] [place] 1538) [address] POCT-GLUCOSE [id number] 20:47:00 Test Item Value Reference Range Interpretation Comments POC-GLUCOSE METER 197 mg/dL 70-110 H TESTED AT [place] [address] ([facility]) (test code = [facility] 1538) [address] [id number] 20:10:00 Test Item Value Reference Range Interpretation Comments MAGNESIUM (BEAKER) (test code = 2.3 mg/dL 1.6-2.6 627) Check Serum Magnesium level 2 hours after IV magnesium replacement.POCT-GLUCOSE [id number] 20:02:00 Test Item Value Reference Range Interpretation Comments POC-GLUCOSE METER 234 mg/dL 70-110 H TESTED AT [place] [address] ([facility]) (test code = [facility] 1538) [address] BLOOD GAS, [id number] 19:57:00 Test Item Value Reference Range Interpretation [...] (test code = 1819) 40.0 % POCT-GLUCOSE [id number] 18:44:00 Test Item Value Reference Range Interpretation Comments POC-GLUCOSE METER 209 mg/dL 70-110 H TESTED AT [place] [address] ([facility]) (test code = [facility] 1538) [address] BASIC METABOLIC [id number] 16:13:00 Test Item Value Reference Range Interpretation [...] ESTIMATED GFR. RAD, CHEST, 1 VIEW, NON [id number] 16:13:00Reason for exam:->intubated, chest tubesShould this be [...] Maineport Verified Date/Time: 11/29/2017 16:13:26 Reading Location: [facility] Radiology Reading Room APTT 2017-11-29 16:12:00 Test Item Value Reference Range Interpretation Comments PARTIAL THROMBOPLASTIN TIME 31.4 seconds 22.5-36.0 (BEAKER) (test code = 760) PROTHROMBIN [id number] 16:11:00 Test Item Value Reference Range Interpretation Comments PROTIME (BEAKER) (test code = 17.6 seconds 11.7-14.7 H 759) INR (BEAKER) (test code = 370) 1.5 <=5.9 RECOMMENDED COUMADIN/WARFARIN INR THERAPY RANGESSTANDARD DOSE: 2.0 - 3.0 Includes: PROPHYLAXIS forvenous thrombosis, systemic embolization; TREATMENT for venous thrombosis and/or pulmonary embolus.HIGH RISK: Target INR is 2.5-3.5 for patients with mechanical heart valves.[id number] 16:11:00 Test Item Value Reference Range Interpretation Comments MAGNESIUM (BEAKER) 1.7 mg/dL 1.6-2.6 Specimen slightly (test code = 627) hemolyzed LACTIC ACID, ARTERIAL, WHOLE [id number] 16:06:00 Test Item Value Reference Range Interpretation Comments LACTATE BLOOD 1.2 mmol/L 0.5-2.2 Specimen sligh tly ARTERIAL (2) (BEAKER) hemoly zed (test code = 2874) Effective 02/18/2016: Units/Reference Range ChangeNew: 0.5-2.2 mmol/L Previous: 5-20 mg/dLCBC W/PLT COUNT & AUTO [id number] 16:02:00 Test Item Value Reference Range Interpretation [...] (BEAKER) (test code = 2801) OXYGEN SATURATION, [id number] 15:54:00 Test Item Value Reference Range Interpretation Comments O2 SATURATION (MEASURED) (BEAKER) 64.9 % (test code = 1455) From distal port of IJ central venous catheterSODIUM NA-STAT [id number] 15:54:00 Test Item Value Reference Range Interpretation Comments SODIUM (BEAKER) (test code = 381) 138 meq/L 135-148 POTASSIUM-STAT [id number] 15:54:00 Test Item Value Reference Range Interpretation Comments POTASSIUM (BEAKER) (test code = 4.2 meq/L 3.6-5.5 379) BLOOD GAS, [id number] 15:54:00 Test Item Value Reference Range Interpretation [...] (test code = 1819) 60.0 % CALCIUM, [id number] 15:54:00 Test Item Value Reference Range Interpretation Comments CALCIUM IONIZED (BEAKER) (test 1.06 mmol/L 1.12-1.27 L code = 698) PH, BLOOD (BEAKER) (test code = 7.31 1810) GLUCOSE-STAT [id number] 15:54:00 Test Item Value Reference Range Interpretation Comments GLUCOSE RANDOM (BEAKER) (test code 173 mg/dL 70-110 H = 652) HGB/HCT (H&H) - STAT [id number] 15:54:00 Test Item Value Reference Range Interpretation [...] MM 55.0-65.0 (test code = 1413) PLATELET [id number] 14:50:00 Test Item Value Reference Range Interpretation Comments PLATELET COUNT (BEAKER) (test code 98 K/CU MM 150-450 L = 756) [id number] 14:27:00 Test Item Value Reference Range Interpretation Comments FIBRINOGEN LEVEL (BEAKER) (test 176 mg/dl 225-434 L code = 658) PROTHROMBIN [id number] 14:14:00 Test Item Value Reference Range Interpretation Comments PROTIME (BEAKER) (test code = 20.7 seconds 11.7-14.7 H 759) INR (BEAKER) (test code = 370) 1.8 <=5.9 RECOMMENDED COUMADIN/WARFARIN INR THERAPY RANGESSTANDARD DOSE: 2.0 - 3.0 Includes: PROPHYLAXIS forvenous thrombosis, systemic embolization; TREATMENT for venous thrombosis and/or pulmonary embolus.HIGH RISK: Target INR is 2.5-3.5 for patients with mechanical heart valves.[id number] 14:14:00 Test Item Value Reference Range Interpretation Comments PARTIAL THROMBOPLASTIN TIME 30.2 seconds 22.5-36.0 (BEAKER) (test code = 760) CALCIUM, [id number] 13:55:00 Test Item Value Reference Range Interpretation Comments CALCIUM IONIZED (BEAKER) (test 1.13 mmol/L 1.12-1.27 code = 698) PH, BLOOD (BEAKER) (test code = 7.30 1810) BLOOD GAS, [id number] 13:55:00 Test Item Value Reference Range Interpretation [...] (test code = 1819) 100.0 % GLUCOSE-STAT [id number] 13:55:00 Test Item Value Reference Range Interpretation Comments GLUCOSE RANDOM (BEAKER) (test code 201 mg/dL 70-110 H = 652) HGB/HCT (H&H) - STAT [id number] 13:55:00 Test Item Value Reference Range Interpretation Comments HEMOGLOBIN (BEAKER) (test code = 9.7 g/dL 13.0-16.8 L 410) HEMATOCRIT (BEAKER) (test code = 29.0 % 40.0-50.0 L 411) SODIUM NA-STAT [id number] 13:54:00 Test Item Value Reference Range Interpretation Comments SODIUM (BEAKER) (test code = 381) 137 meq/L 135-148 POTASSIUM-STAT [id number] 13:54:00 Test Item Value Reference Range Interpretation Comments POTASSIUM (BEAKER) (test code = 3.9 meq/L 3.6-5.5 379) BLOOD GAS, [id number] 13:22:00 Test Item Value Reference Range Interpretation [...] (test code = 1819) 80.0 % GLUCOSE-STAT [id number] 13:22:00 Test Item Value Reference Range Interpretation Comments GLUCOSE RANDOM (BEAKER) (test code 191 mg/dL 70-110 H = 652) HGB/HCT (H&H) - STAT [id number] 13:22:00 Test Item Value Reference Range Interpretation Comments HEMOGLOBIN (BEAKER) (test code = 9.3 g/dL 13.0-16.8 L 410) HEMATOCRIT (BEAKER) (test code = 27.0 % 40.0-50.0 L 411) SODIUM NA-STAT [id number] 13:18:00 Test Item Value Reference Range Interpretation Comments SODIUM (BEAKER) (test code = 381) 136 meq/L 135-148 POTASSIUM-STAT [id number] 13:18:00 Test Item Value Reference Range Interpretation Comments POTASSIUM (BEAKER) (test code = 4.6 meq/L 3.6-5.5 379) BLOOD GAS, [id number] 12:39:00 Test Item Value Reference Range Interpretation [...] code = 1819) 60.0 % SODIUM NA-STAT [id number] 12:39:00 Test Item Value Reference Range Interpretation Comments SODIUM (BEAKER) (test code = 381) 134 meq/L 135-148 L GLUCOSE-STAT [id number] 12:39:00 Test Item Value Reference Range Interpretation Comments GLUCOSE RANDOM (BEAKER) (test code 166 mg/dL 70-110 H = 652) HGB/HCT (H&H) - STAT [id number] 12:39:00 Test Item Value Reference Range Interpretation Comments HEMOGLOBIN (BEAKER) (test code = 9.9 g/dL 13.0-16.8 L 410) HEMATOCRIT (BEAKER) (test code = 29.0 % 40.0-50.0 L 411) POTASSIUM-STAT [id number] 12:38:00 Test Item Value Reference Range Interpretation Comments POTASSIUM (BEAKER) (test code = 4.4 meq/L 3.6-5.5 379) SODIUM NA-STAT [id number] 11:22:00 Test Item Value Reference Range Interpretation Comments SODIUM (BEAKER) (test code = 381) 140 meq/L 135-148 POTASSIUM-STAT [id number] 11:22:00 Test Item Value Reference Range Interpretation Comments POTASSIUM (BEAKER) (test code = 4.0 meq/L 3.6-5.5 379) HGB/HCT (H&H) - STAT [id number] 11:22:00 Test Item Value Reference Range Interpretation Comments HEMOGLOBIN (BEAKER) (test code = 14.5 g/dL 13.0-16.8 410) HEMATOCRIT (BEAKER) (test code = 43.0 % 40.0-50.0 411) BLOOD GAS, [id number] 11:22:00 Test Item Value Reference Range Interpretation [...] (test code = 1819) 100.0 % GLUCOSE-STAT [id number] 11:22:00 Test Item Value Reference Range Interpretation Comments GLUCOSE RANDOM (BEAKER) (test code 112 mg/dL 70-110 H = 652) PLATELET AGGREGATION: FUNCTION [id number] 09:52:00 Test Item Value Reference Range Interpretation Comments WEAK ADP 68 % 60-91 RESULT(BEAKER) (test code = 2135) PLATELET FUNCTION 60-100% indicates SCREEN INTERP (BEAKER) normal platelet (test code = 2173) function [id number] Batsheva Llamas MD ([facility]) (test code = (electronic signature) 5252) PLATELET COUNT AGG 176 K/CU MM 150-450 (BEAKER) (test code = 2656) RAD, CHEST, 1 VIEW, NON [id number] 08:51:00Reason for exam:->preop for CV surgeryFINAL REPORT [...] MDReport Verified Date/Time: 11/29/2017 08:51:39 Reading Location: [facility] Women Electronically signed by: ULISES KATHLEEN M.D.on 11/29/2017 08:51 AM POCT-GLUCOSE [id number] 07:42:00 Test Item Value Reference Range Interpretation Comments POC-GLUCOSE METER 105 mg/dL 70-110 TESTED AT [facility] 67[address] ([facility]) (test code = [facility] [employer] 1538) [address] COMPREHENSIVE METABOLIC [id number] 07:03:00 Test Item Value Reference Range Interpretation [...] O CALCULATE ESTIM ATED GFR. BASIC METABOLIC [id number] 07:03:00 Test Item Value Reference Range Interpretation [...] m DATA TO CALCULA TE ESTIMATED GFR. [id number] 06:54:00 Test Item Value Reference Range Interpretation Comments MAGNESIUM (BEAKER) (test code = 1.9 mg/dL 1.6-2.6 627) PROTHROMBIN TIME/[id number] 06:46:00 Test Item Value Reference Range Interpretation [...] PERCENT (BEAKER) (test code = 2801) POCT-GLUCOSE [id number] 21:53:00 Test Item Value Reference Range Interpretation Comments POC-GLUCOSE METER 131 mg/dL 70-110 H TESTED AT [facility] [address] ([facility]) (test code = [facility] 1538) [address] HEMOGLOBIN [id number] 20:50:00 Test Item Value Reference Range Interpretation Comments HEMOGLOBIN A1C (BEAKER) (test code = 6.6 % 4.3-6.1 H 368) POCT-GLUCOSE [id number] 19:15:00 Test Item Value Reference Range Interpretation Comments POC-GLUCOSE METER 134 mg/dL 70-110 H TESTED AT [place] [id number] ([facility]) (test code = [facility] 1538) [address] [id number] 18:35:00 Test Item Value Reference Range Interpretation Comments PARTIAL THROMBOPLASTIN TIME 32.4 seconds 22.5-36.0 (BEAKER) (test code = 760) [id number] 18:34:00 Test Item Value Reference Range Interpretation Comments FIBRINOGEN LEVEL (BEAKER) (test 372 mg/dl 225-434 code = 658) TSH/FREE T4 IF [id number] 16:25:00 Test Item Value Reference Range Interpretation Comments THYROID STIMULATING HORMONE 2.53 uIU/mL 0.35-4.94 (BEAKER) (test code = 772) BASIC METABOLIC [id number] 16:10:00 Test Item Value Reference Range Interpretation [...] m DATA TO CALCULA TE ESTIMATED GFR. [id number] 16:09:00 Test Item Value Reference Range Interpretation Comments PHOSPHORUS (BEAKER) (test code = 3.0 mg/dL 2.3-4.7 604) [id number] 16:09:00 Test Item Value Reference Range Interpretation Comments MAGNESIUM (BEAKER) (test code = 2.0 mg/dL 1.6-2.6 627) LIPID [id number] 16:09:00 Test Item Value Reference Range Interpretation [...] 130-159 High 160-189 Very High >=190HEPATIC FUNCTION [id number] 16:09:00 Test Item Value Reference Range Interpretation [...] (test code = 22 U/L 6-55 347) [id number] 16:04:00 Test Item Value Reference Range Interpretation [...]
--- NOTE | 2021-08-29 20:42 | PN ---
Date of Progress Note: 08/26/2021 Subjective: Mr. Beltrán came in with mild congestive heart failure, dizziness, weakness, so far had an extensive negative neurological workup. Chest x-ray shows some mild volume overload, but his EKG showed perfectly normal ejection fraction. He is feeling better. I would continue a present regimen at home. He may have some diastolic dysfunction, although the echo does not show what for now. He may have congestive heart failure with normal ejection fraction. I would add a low-dose Lasix added to his regimen when he goes home. I will see him in the office as an outpatient soon. He may need a stress test. DIALLO/MARIA E Voice ID: [id number] Report ID: [id number]
--- NOTE | 2021-08-29 21:10 | CON ---
Date of Consultation: 08/26/[address] Rg's service on 08/25/2021. I saw the patient on 08/26/2021. Reason For Consultation: Nonspecific complaint of near syncope, weakness, and shortness of breath. History Of Present Illness: Mr. Beltrán is 66, came in with weakness, shortness of breath, near sync ope. No chest pain. Complained of dizziness, unsteady gait. Denies nausea, vomiting, diaphoresis, PND, orthopnea, pedal edema, palpitations, or syncope. Allergies: NONE. Review of Systems: Negative. Social History: Negative. Family History: Negative. Past Medical History: Include diabetes, CAD, hypertension, and chronic pain. Allergies: NONE. Medications: At home include aspirin, Lovenox, finasteride, Glucovance, hydrocodone, and Flomax. Physical Examination: Vital Signs: Stable, afebrile. HEENT: Negative. Neck: Supple without any bruit, lymphadenopathy, JVD, or thyromegaly. Chest: Reveals some rales both bases. Cardiac Exam: Revealed a regular rhythm and rate without any murmurs, gallops, or rubs. Abdomen: Benign. Extremities: Revealed no clubbing, cyanosis, or edema. Diagnostic Data: He had a brain MRI that was negative. He had a chest x-ray that showed mild CHF. EKG showed right bundle-branch block with sinus rhythm. CTA showed no pulmonary embolus. He had a h ead CT, which was negative. He had a brain MRI with MRA, which was negative. Impression And Plan: Presyncope probably orthostatic hypotension. Does not appear to be any neurolo gical deficit. I think he needs to have an echocardiogram done to make sure we are not dealing with any congestive heart failure per se. His chest x-ray does show some mild volume overload. I will di urese him gently, watch his creatinine, get an echocardiogram and I will see how he does with that. Otherwise, continue present regimen. I will discuss the case further with Dr. Rg. DIALLO/MARIA E Voice ID: [id number] Report ID: [id number]
== END 2021-08-28 16:30 | disposition home or self-care (01) | DRG 291 ==
LOC: ER 11:21 → ERHOLD 16:49 → 2ND 19:53 → OBSVTOIN 08-26 13:07
PROVIDERS: ADMIT Internal Medicine; ATTEND Internal Medicine
DX: I11.0 Hypertensive heart disease with heart failure (principal); I50.31 Acute diastolic (congestive) heart failure; Z68.41 Body mass index [BMI] 40.0-44.9, adult; K80.46 Calculus of bile duct with acute and chronic cholecystitis without obstruction; E66.01 Morbid (severe) obesity due to excess calories; E11.9 Type 2 diabetes mellitus without complications; G89.29 Other chronic pain; I25.10 Atherosclerotic heart disease of native coronary artery without angina pectoris; M54.9 Dorsalgia, unspecified; E78.5 Hyperlipidemia, unspecified; I25.2 Old myocardial infarction; R50.9 Fever, unspecified; Z95.5 Presence of coronary angioplasty implant and graft; Z79.899 Other long term (current) drug therapy; Z95.1 Presence of aortocoronary bypass graft; Z79.82 Long term (current) use of aspirin; Z88.5 Allergy status to narcotic agent; Z20.822 Contact with and (suspected) exposure to COVID-19
CPT/HCPCS: 0240U; 36415; 70450; 70496; 70498; 70544; 70551; 71045; 71275; 74177; 76705; 78227; 80048; 80076; 81003; 81015; 82565; 82805; 82947; 83605; 83735; 83880; 84484; 85025; 85379; 85610; 87040; 87086; 87088; 93005; 93306; 96361; 96374; 96375; 99285; A9537; G0378; J1650; J1815; J1940; J2405; J2805; J3486; J7030; Q9967

== ENCOUNTER 2021-11-30 17:28 | Observation (INO) | payer OTHER ==
--- OUTSIDE RECORDS SUMMARY | 2021-11-30 17:31 | XMS REPORT | Continuity of Care Document ---
:1955 Author Organization [facility] t Address [address] [place] [address] Dr. Ob[address] [place] [address] Care Team Providers Name Role Phone DORETHA MENDOZA Attending Clinician Unavailable Yahaira Mojica Attending Clinician Yahaira MOJICA Attending Clinician Unavailable Doctor Unassigned, Name Attending Clinician Unavailable BEV ORTIZ Attending Clinician Unavailable BEV ORTIZ Admitting Clinician Unavailable Payers Payer Name Policy Type Policy Number Effective Date Expiration Date S [facility] [id number] 2015 MEDICARE GOLD 00:00:00 [employer] MEDICARE ADV [id number] 2017 00:00:00 Problems This patient has no known problems. Allergies, Adverse Reactions, Alerts Allergy Allergy Status Severity Reaction(s) Onset Inactive Treating Comm ents Source Name Type Date Date Clinician NO KNOWN Drug Active [facility] ALLERGIE Class [facility] Medications This patient has no known medications. Procedures This patient has no known procedures. Encounters Start End Encounter Admission Attending Care Care Encounter Source Date/Time Date/Time Type Type Clinicians Facility Department ID 2021-01-03 2021-01-03 Outpatient [facility] [id number] Univers 17:10:00 17:10:00 [facility] 2020-12-13 2020-12-13 Outpatient Sen MENDOZA [facility] [id number] Univers 16:00:00 16:00:00 DORETHA [facility] 2020-10-30 2020-10-30 [facility] Orestes Mojica [facility] [id number] 14:49:11 23:59:00 Encounter Yahaira Hughes [id number] [place] [id number] [place] [id number] 2020-10-30 2020-10-30 Outpatient R ORESTES MOJICA [facility] [id number] Univers 00:00:00 00:00:00 ity [facility] 2020-10-30 2020-10-30 Orders Doctor ATUL [id number] 00:00:00 00:00:00 Only Unassigned, AMIE [id number] [place] [facility] [id number] [id number] Results Test Description Test Time Test Comments Results Result Comments Source SARS-COV2/RT-PCR ([facility]) 2020-02-25 10:48:00 Test Item Value Reference Range Interpretation Comme nts SARS-COV2/RT-PCR (test code = 9179467) Not Detected Not Detected, N egative SARS-COV-2 PERFORMING LAB (test code = [facility] 5006732) Negative results do not preclude SARS-CoV-2 infection [...] of the Act.Fact Sheet for Healthcare Pro viders:https://www.iSquare.com/Documents/Xpert%20Xpress%20SARS%20CoV-2/Fact%20Sh eets/302-3802%85AKGA-IDK-2%20HEALTHCARE%20PROVIDERS%20FACT%20SHEET.pdfFact Sheet for Healthcare Patients:https://www.Health & Bliss.com/Documents/Xpert%20Xpress%20SARS%20CoV-2/Fact%20Sheets/302-3801%20SARS-COV -2%20PATIENT%20FACT%20SHEET.pdfPerforming Laboratory:[place] [address] Lisa Bourgeois[place], [place] [address]NECH-HOKZIZH [id number] 12:24:00 Test Item Value Reference Range Interpretation Comments POC-GLUCOSE METER 255 mg/dL 70-110 H TESTED AT [place] [address] ([facility] (test code = [facility] Sen [facility] 1538) [address] POCT-GLUCOSE [id number] 08:35:00 Test Item Value Reference Range Interpretation Comments POC-GLUCOSE METER 127 mg/dL 70-110 H TESTED AT [place] [address] ([facility]) (test code = [facility] Sen [facility] 1538) 8[address] POCT-GLUCOSE [id number] 00:25:00 Test Item Value Reference Range Interpretation Comments POC-GLUCOSE METER 177 mg/dL 70-110 H TESTED AT [place] [address] ([facility]) (test code = [facility] 1538) 00067 HEMOGLOBIN [id number] 14:20:00 Test Item Value Reference Range Interpretation Comments HEMOGLOBIN A1C (BEAKER) (test code = 6.9 % 4.3-6.1 H 368) BASIC METABOLIC [id number] 07:34:00 Test Item Value Reference Range Interpretation [...] ESTIMATED GFR. CBC W/PLT COUNT & AUTO [id number] 06:38:00 Test Item Value Reference Range Interpretation [...] PERCENT (BEAKER) (test code = 2801) POCT-GLUCOSE [id number] 21:40:00 Test Item Value Reference Range Interpretation Comments POC-GLUCOSE METER 171 mg/dL 70-110 H TESTED AT [facility] 6720 (BEAKER) ([facility] = [facility] 1538) 76163 POCT-GLUCOSE [id number] 18:53:00 Test Item Value Reference Range Interpretation Comments POC-GLUCOSE METER 136 mg/dL 70-110 H TESTED AT [facility] 6720 ([facility]) (test code = [facility] Sen [facility] 1538) [address] BASIC METABOLIC [id number] 05:58:00 Test Item Value Reference Range Interpretation [...] m DATA TO CALCULA TE ESTIMATED GFR. [id number] 05:57:00 Test Item Value Reference Range Interpretation Comments MAGNESIUM (BEAKER) (test code = 1.9 mg/dL 1.6-2.6 627) CBC W/PLT COUNT & AUTO [id number] 05:11:00 Test Item Value Reference Range Interpretation [...] PERCENT (BEAKER) (test code = 2801) POCT-GLUCOSE [id number] 21:45:00 Test Item Value Reference Range Interpretation Comments POC-GLUCOSE METER 177 mg/dL 70-110 H TESTED AT [facility] 6720 ([facility]) (test code = [facility]AGAN[facility] Sen [place] 1538) [address] POCT-GLUCOSE [id number] 18:49:00 Test Item Value Reference Range Interpretation Comments POC-GLUCOSE METER 216 mg/dL 70-110 H TESTED AT [facility] 67 ([facility]) (test code = [facility] [place] 1538) 89[address] POCT-GLUCOSE [id number] 09:56:00 Test Item Value Reference Range Interpretation Comments POC-GLUCOSE METER 202 mg/dL 70-110 H TESTED AT [facility] 67 ([facility]) (test code = [facility] 1538) [address] [id number] 09:37:00 Test Item Value Reference Range Interpretation [...] for patients with mechanical heart valves.BASIC METABOLIC [id number] 09:24:00 Test Item Value Reference Range Interpretation [...] m DATA TO CALCULA TE ESTIMATED GFR. [id number] 09:16:00 Test Item Value Reference Range Interpretation Comments MAGNESIUM (BEAKER) (test code = 1.8 mg/dL 1.6-2.6 627) CBC W/PLT COUNT & AUTO [id number] 08:53:00 Test Item Value Reference Range Interpretation [...] PERCENT (BEAKER) (test code = 2801) POCT-GLUCOSE [id number] 21:32:00 Test Item Value Reference Range Interpretation Comments POC-GLUCOSE METER 200 mg/dL 70-110 H TESTED AT [place] [address] ([facility]) (test code = [facility] 1538) [address] POCT-GLUCOSE [id number] 17:42:00 Test Item Value Reference Range Interpretation Comments POC-GLUCOSE METER 191 mg/dL 70-110 H TESTED AT [place] [address] ([facility]) (test code = [facility] 1538) 23727 HEMOGLOBIN AND [id number] 15:51:00 Test Item Value Reference Range Interpretation Comments HEMOGLOBIN ([facility]) (test code = 7.4 GM/DL 13.7-17.5 L 410) HEMATOCRIT ([facility]) (test code = 23.9 % 40.1-51.0 L 411) POCT-GLUCOSE [id number] 13:02:00 Test Item Value Reference Range Interpretation Comments POC-GLUCOSE METER 190 mg/dL 70-110 H TESTED AT [place] [address] ([facility]) (test code = [facility] 1538) 77091 POCT-GLUCOSE [id number] 08:10:00 Test Item Value Reference Range Interpretation Comments POC-GLUCOSE METER 176 mg/dL 70-110 H TESTED AT [place] [address] ([facility]) (test code = [facility] 1538) [address] RAD, CHEST, 1 VIEW, NON [id number] 07:47:00Reason for exam:->pl effusionShould this be performed at the bedside?->YesFINAL REPORT Chest one view compared to November 30 Discussion: Mild pulmonary congestion and probable left lower lung atelectasis. I could not exclude small left effusion. No pneumothorax. IMPRESSIONS: Similar cardiopulmonary appearance. Signed: Atul Mcdonough Verified Date/Time: 12/01/2017 07:47:00 Reading Location: [facility] Radiology Reading Room BASIC METABOLIC [id number] 05:25:00 Test Item Value Reference Range Interpretation [...] m DATA TO CALCULA TE ESTIMATED GFR. [id number] 05:18:00 Test Item Value Reference Range Interpretation Comments MAGNESIUM (BEAKER) (test code = 1.8 mg/dL 1.6-2.6 627) CBC W/PLT COUNT & AUTO [id number] 04:59:00 Test Item Value Reference Range Interpretation [...] PERCENT (BEAKER) (test code = 2801) POCT-GLUCOSE [id number] 22:11:00 Test Item Value Reference Range Interpretation Comments POC-GLUCOSE METER 190 mg/dL 70-110 H TESTED AT [facility] 6720 (BEAKER) (test code = SADA Chatterjee [facility] 1538) 36993 POCT-GLUCOSE [id number] 16:58:00 Test Item Value Reference Range Interpretation Comments POC-GLUCOSE METER 193 mg/dL 70-110 H TESTED AT [place] [address] ([facility]) (test code = SADA Chatterjee [facility] 1538) [address]125 CBC (HEMOGRAM ONLY)2017-11-30 13:05:00 Test Item Value [...] 0-0 (BEAKER) (test code = 413) POCT-GLUCOSE [id number] 12:06:00 Test Item Value Reference Range Interpretation Comments POC-GLUCOSE METER 142 mg/dL 70-110 H TESTED AT [place] [address] ([facility]) (test code = SADA Chatterjee [facility] 1538) 72678 POCT-GLUCOSE [id number] 09:23:00 Test Item Value Reference Range Interpretation Comments POC-GLUCOSE METER 108 mg/dL 70-110 TESTED AT [place] [address] ([facility]) (test code = SADA Chatterjee [facility] 1538) [address] [id number] 05:44:00 Test Item Value Reference Range Interpretation Comments ACTIVATED CLOTTING TIME 103 sec TEST ED AT [place] [address] ([facility]) (test code = SADA [place] [address]) [address] [id number] 05:44:00 Test Item Value Reference Range Interpretation Comments ACTIVATED CLOTTING TIME 439 sec TEST ED AT [place] [address] ([facility]) (test code = [place] 441) [address] [id number] 05:44:00 Test Item Value Reference Range Interpretation Comments ACTIVATED CLOTTING TIME 604 sec TEST ED AT [place] [address] ([facility]) (test code = [place] 441) [address] [id number] 05:44:00 Test Item Value Reference Range Interpretation Comments ACTIVATED CLOTTING TIME 444 sec TEST ED AT [place] [address] ([facility]) (test code = SADA [place] 441) [address] POCT-GLUCOSE [id number] 04:45:00 Test Item Value Reference Range Interpretation Comments POC-GLUCOSE METER 122 mg/dL 70-110 H TESTED AT [place] [address] ([facility]) (test code = [place] 1538) [address] RAD, CHEST, 1 VIEW, NON [id number] 04:40:00while patient is intubated or has chest [...] MDReport Verified Date/Time: 11/30/2017 04:40:05 Reading Location: [address] Reading Room CBC W/PLT COUNT & AUTO [id number] 03:49:00 Test Item Value Reference Range Interpretation [...] (BEAKER) (test code = 2801) BASIC METABOLIC [id number] 03:49:00 Test Item Value Reference Range Interpretation [...] m DATA TO CALCULA TE ESTIMATED GFR. [id number] 03:42:00 Test Item Value Reference Range Interpretation Comments MAGNESIUM (BEAKER) (test code = 1.9 mg/dL 1.6-2.6 627) POCT-GLUCOSE [id number] 03:04:00 Test Item Value Reference Range Interpretation Comments POC-GLUCOSE METER 143 mg/dL 70-110 H TESTED AT [place] [address] ([facility]) (test code = SADA Chatterjee [facility] 1538) 13577 POCT-GLUCOSE [id number] 02:04:00 Test Item Value Reference Range Interpretation Comments POC-GLUCOSE METER 146 mg/dL 70-110 H TESTED AT [place] [address] ([facility]) (test code = SADA Chatterjee [facility] 1538) [address]72 POCT-GLUCOSE [id number] 01:04:00 Test Item Value Reference Range Interpretation Comments POC-GLUCOSE METER 203 mg/dL 70-110 H TESTED AT [place] [address] ([facility]) (test code = SADA Chatterjee [facility] 1538) [address] [id number] 01:03:00 Test Item Value Reference Range Interpretation Comments MAGNESIUM (BEAKER) (test code = 2.1 mg/dL 1.6-2.6 627) [id number] 01:03:00 Test Item Value Reference Range Interpretation Comments POTASSIUM (BEAKER) (test code = 4.3 meq/L 3.5-5.1 379) CALCIUM, [id number] 00:29:00 Test Item Value Reference Range Interpretation Comments CALCIUM IONIZED (BEAKER) (test 1.08 mmol/L 1.12-1.27 L code = 698) PH, BLOOD (BEAKER) (test code = 7.39 1810) POCT-GLUCOSE [id number] 00:09:00 Test Item Value Reference Range Interpretation Comments POC-GLUCOSE METER 214 mg/dL 70-110 H TESTED AT [place] [address] ([facility]) (test code = SADA Chatterjee [facility] 1538) [address] POCT-GLUCOSE [id number] 22:51:00 Test Item Value Reference Range Interpretation Comments POC-GLUCOSE METER 179 mg/dL 70-110 H TESTED AT [place] [address] (BEAKER) (test code = SADA Chatterjee [facility] 1538) 13361 POCT-GLUCOSE [id number] 22:13:00 Test Item Value Reference Range Interpretation Comments POC-GLUCOSE METER 206 mg/dL 70-110 H TESTED AT [place] [address] ([facility]) (test code = SADA Chatterjee [facility] 1538) [address] BLOOD GAS, [id number] 21:08:00 Test Item Value Reference Range Interpretation [...] = 1819) 36.0 % Post extubation ABGPOCT-GLUCOSE [id number] 21:03:00 Test Item Value Reference Range Interpretation Comments POC-GLUCOSE METER 197 mg/dL 70-110 H TESTED AT [place] [address] ([facility]) (test code = [facility] 1538) [address] POCT-GLUCOSE [id number] 20:47:00 Test Item Value Reference Range Interpretation Comments POC-GLUCOSE METER 197 mg/dL 70-110 H TESTED AT [place] [address] ([facility]) (test code = [facility] 1538) [address] [id number] 20:10:00 Test Item Value Reference Range Interpretation Comments MAGNESIUM (BEAKER) (test code = 2.3 mg/dL 1.6-2.6 627) Check Serum Magnesium level 2 hours after IV magnesium replacement.POCT-GLUCOSE [id number] 20:02:00 Test Item Value Reference Range Interpretation Comments POC-GLUCOSE METER 234 mg/dL 70-110 H TESTED AT [place] [address] ([facility]) (test code = [facility] 1538) [address] BLOOD GAS, [id number] 19:57:00 Test Item Value Reference Range Interpretation [...] (test code = 1819) 40.0 % POCT-GLUCOSE [id number] 18:44:00 Test Item Value Reference Range Interpretation Comments POC-GLUCOSE METER 209 mg/dL 70-110 H TESTED AT [place] [address] ([facility]) (test code = [facility] 1538) [address] BASIC METABOLIC [id number] 16:13:00 Test Item Value Reference Range Interpretation [...] ESTIMATED GFR. RAD, CHEST, 1 VIEW, NON [id number] 16:13:00Reason for exam:->intubated, chest tubesShould this be [...] Maineport Verified Date/Time: 11/29/2017 16:13:26 Reading Location: [facility] Radiology Reading Room APTT 2017-11-29 16:12:00 Test Item Value Reference Range Interpretation Comments PARTIAL THROMBOPLASTIN TIME 31.4 seconds 22.5-36.0 (BEAKER) (test code = 760) PROTHROMBIN [id number] 16:11:00 Test Item Value Reference Range Interpretation Comments PROTIME (BEAKER) (test code = 17.6 seconds 11.7-14.7 H 759) INR (BEAKER) (test code = 370) 1.5 <=5.9 RECOMMENDED COUMADIN/WARFARIN INR THERAPY RANGESSTANDARD DOSE: 2.0 - 3.0 Includes: PROPHYLAXIS forvenous thrombosis, systemic embolization; TREATMENT for venous thrombosis and/or pulmonary embolus.HIGH RISK: Target INR is 2.5-3.5 for patients with mechanical heart valves.[id number] 16:11:00 Test Item Value Reference Range Interpretation Comments MAGNESIUM (BEAKER) 1.7 mg/dL 1.6-2.6 Specimen slightly (test code = 627) hemolyzed LACTIC ACID, ARTERIAL, WHOLE [id number] 16:06:00 Test Item Value Reference Range Interpretation Comments LACTATE BLOOD 1.2 mmol/L 0.5-2.2 Specimen sligh tly ARTERIAL (2) (BEAKER) hemoly zed (test code = 2874) Effective 02/18/2016: Units/Reference Range ChangeNew: 0.5-2.2 mmol/L Previous: 5-20 mg/dLCBC W/PLT COUNT & AUTO [id number] 16:02:00 Test Item Value Reference Range Interpretation [...] % 0-1 PERCENT (BEAKER) (test code = 2808) OXYGEN SATURATION, [id number] 15:54:00 Test Item Value Reference Range Interpretation Comments O2 SATURATION (MEASURED) (BEAKER) 64.9 % (test code = 1455) From distal port of IJ central venous catheterSODIUM NA-STAT [id number] 15:54:00 Test Item Value Reference Range Interpretation Comments SODIUM (BEAKER) (test code = 381) 138 meq/L 135-148 POTASSIUM-STAT [id number] 15:54:00 Test Item Value Reference Range Interpretation Comments POTASSIUM (BEAKER) (test code = 4.2 meq/L 3.6-5.5 379) BLOOD GAS, [id number] 15:54:00 Test Item Value Reference Range Interpretation [...] (test code = 1819) 60.0 % CALCIUM, [id number] 15:54:00 Test Item Value Reference Range Interpretation Comments CALCIUM IONIZED (BEAKER) (test 1.06 mmol/L 1.12-1.27 L code = 698) PH, BLOOD (BEAKER) (test code = 7.31 1810) GLUCOSE-STAT [id number] 15:54:00 Test Item Value Reference Range Interpretation Comments GLUCOSE RANDOM (BEAKER) (test code 173 mg/dL 70-110 H = 652) HGB/HCT (H&H) - STAT [id number] 15:54:00 Test Item Value Reference Range Interpretation [...] MM 55.0-65.0 (test code = 1413) PLATELET [id number] 14:50:00 Test Item Value Reference Range Interpretation Comments PLATELET COUNT (BEAKER) (test code 98 K/CU MM 150-450 L = 756) [id number] 14:27:00 Test Item Value Reference Range Interpretation Comments FIBRINOGEN LEVEL (BEAKER) (test 176 mg/dl 225-434 L code = 658) PROTHROMBIN [id number] 14:14:00 Test Item Value Reference Range Interpretation Comments PROTIME (BEAKER) (test code = 20.7 seconds 11.7-14.7 H 759) INR (BEAKER) (test code = 370) 1.8 <=5.9 RECOMMENDED COUMADIN/WARFARIN INR THERAPY RANGESSTANDARD DOSE: 2.0 - 3.0 Includes: PROPHYLAXIS forvenous thrombosis, systemic embolization; TREATMENT for venous thrombosis and/or pulmonary embolus.HIGH RISK: Target INR is 2.5-3.5 for patients with mechanical heart valves.[id number] 14:14:00 Test Item Value Reference Range Interpretation Comments PARTIAL THROMBOPLASTIN TIME 30.2 seconds 22.5-36.0 (BEAKER) (test code = 760) CALCIUM, [id number] 13:55:00 Test Item Value Reference Range Interpretation Comments CALCIUM IONIZED (BEAKER) (test 1.13 mmol/L 1.12-1.27 code = 698) PH, BLOOD (BEAKER) (test code = 7.30 1810) BLOOD GAS, [id number] 13:55:00 Test Item Value Reference Range Interpretation [...] (test code = 1819) 100.0 % GLUCOSE-STAT [id number] 13:55:00 Test Item Value Reference Range Interpretation Comments GLUCOSE RANDOM (BEAKER) (test code 201 mg/dL 70-110 H = 652) HGB/HCT (H&H) - STAT [id number] 13:55:00 Test Item Value Reference Range Interpretation Comments HEMOGLOBIN (BEAKER) (test code = 9.7 g/dL 13.0-16.8 L 410) HEMATOCRIT (BEAKER) (test code = 29.0 % 40.0-50.0 L 411) SODIUM NA-STAT [id number] 13:54:00 Test Item Value Reference Range Interpretation Comments SODIUM (BEAKER) (test code = 381) 137 meq/L 135-148 POTASSIUM-STAT [id number] 13:54:00 Test Item Value Reference Range Interpretation Comments POTASSIUM (BEAKER) (test code = 3.9 meq/L 3.6-5.5 379) BLOOD GAS, [id number] 13:22:00 Test Item Value Reference Range Interpretation [...] (test code = 1819) 80.0 % GLUCOSE-STAT [id number] 13:22:00 Test Item Value Reference Range Interpretation Comments GLUCOSE RANDOM (BEAKER) (test code 191 mg/dL 70-110 H = 652) HGB/HCT (H&H) - STAT [id number] 13:22:00 Test Item Value Reference Range Interpretation Comments HEMOGLOBIN (BEAKER) (test code = 9.3 g/dL 13.0-16.8 L 410) HEMATOCRIT (BEAKER) (test code = 27.0 % 40.0-50.0 L 411) SODIUM NA-STAT [id number] 13:18:00 Test Item Value Reference Range Interpretation Comments SODIUM (BEAKER) (test code = 381) 136 meq/L 135-148 POTASSIUM-STAT [id number] 13:18:00 Test Item Value Reference Range Interpretation Comments POTASSIUM (BEAKER) (test code = 4.6 meq/L 3.6-5.5 379) BLOOD GAS, [id number] 12:39:00 Test Item Value Reference Range Interpretation [...] code = 1819) 60.0 % SODIUM NA-STAT [id number] 12:39:00 Test Item Value Reference Range Interpretation Comments SODIUM (BEAKER) (test code = 381) 134 meq/L 135-148 L GLUCOSE-STAT [id number] 12:39:00 Test Item Value Reference Range Interpretation Comments GLUCOSE RANDOM (BEAKER) (test code 166 mg/dL 70-110 H = 652) HGB/HCT (H&H) - STAT [id number] 12:39:00 Test Item Value Reference Range Interpretation Comments HEMOGLOBIN (BEAKER) (test code = 9.9 g/dL 13.0-16.8 L 410) HEMATOCRIT (BEAKER) (test code = 29.0 % 40.0-50.0 L 411) POTASSIUM-STAT [id number] 12:38:00 Test Item Value Reference Range Interpretation Comments POTASSIUM (BEAKER) (test code = 4.4 meq/L 3.6-5.5 379) SODIUM NA-STAT [id number] 11:22:00 Test Item Value Reference Range Interpretation Comments SODIUM (BEAKER) (test code = 381) 140 meq/L 135-148 POTASSIUM-STAT [id number] 11:22:00 Test Item Value Reference Range Interpretation Comments POTASSIUM (BEAKER) (test code = 4.0 meq/L 3.6-5.5 379) HGB/HCT (H&H) - STAT [id number] 11:22:00 Test Item Value Reference Range Interpretation Comments HEMOGLOBIN (BEAKER) (test code = 14.5 g/dL 13.0-16.8 410) HEMATOCRIT (BEAKER) (test code = 43.0 % 40.0-50.0 411) BLOOD GAS, [id number] 11:22:00 Test Item Value Reference Range Interpretation [...] (test code = 1819) 100.0 % GLUCOSE-STAT [id number] 11:22:00 Test Item Value Reference Range Interpretation Comments GLUCOSE RANDOM (BEAKER) (test code 112 mg/dL 70-110 H = 652) PLATELET AGGREGATION: FUNCTION [id number] 09:52:00 Test Item Value Reference Range Interpretation Comments WEAK ADP 68 % 60-91 RESULT(BEAKER) (test code = 2135) PLATELET FUNCTION 60-100% indicates SCREEN INTERP (BEAKER) normal platelet (test code = 2173) function [id number] Batsheva Llamas MD ([facility]) (test code = (electronic signature) 0982) PLATELET COUNT AGG 176 K/CU MM 150-450 (BEAKER) (test code = 2656) RAD, CHEST, 1 VIEW, NON [id number] 08:51:00Reason for exam:->preop for CV surgeryFINAL REPORT [...] MDReport Verified Date/Time: 11/29/2017 08:51:39 Reading Location: [facility] Women Electronically signed by: ULISES KATHLEEN M.D.on 11/29/2017 08:51 AM POCT-GLUCOSE [id number] 07:42:00 Test Item Value Reference Range Interpretation Comments POC-GLUCOSE METER 105 mg/dL 70-110 TESTED AT [facility] 6720 ([facility]) (test code = SADA Chatterjee [facility] 1538) [id number] COMPREHENSIVE METABOLIC [id number] 07:03:00 Test Item Value Reference Range Interpretation [...] O CALCULATE ESTIM ATED GFR. BASIC METABOLIC [id number] 07:03:00 Test Item Value Reference Range Interpretation [...] m DATA TO CALCULA TE ESTIMATED GFR. [id number] 06:54:00 Test Item Value Reference Range Interpretation Comments MAGNESIUM (BEAKER) (test code = 1.9 mg/dL 1.6-2.6 627) PROTHROMBIN [id number] 06:46:00 Test Item Value Reference Range Interpretation [...] PERCENT (BEAKER) (test code = 2801) POCT-GLUCOSE [id number] 21:53:00 Test Item Value Reference Range Interpretation Comments POC-GLUCOSE METER 131 mg/dL 70-110 H TESTED AT [facility] [address] ([facility]) (test code = [facility] 1538) [address] HEMOGLOBIN [id number] 20:50:00 Test Item Value Reference Range Interpretation Comments HEMOGLOBIN A1C (BEAKER) (test code = 6.6 % 4.3-6.1 H 368) POCT-GLUCOSE [id number] 19:15:00 Test Item Value Reference Range Interpretation Comments POC-GLUCOSE METER 134 mg/dL 70-110 H TESTED AT [place] [address] ([facility]) (test code = [facility] 1538) [address] [id number] 18:35:00 Test Item Value Reference Range Interpretation Comments PARTIAL THROMBOPLASTIN TIME 32.4 seconds 22.5-36.0 (BEAKER) (test code = 760) [id number] 18:34:00 Test Item Value Reference Range Interpretation Comments FIBRINOGEN LEVEL (BEAKER) (test 372 mg/dl 225-434 code = 658) TSH/FREE T4 IF [id number] 16:25:00 Test Item Value Reference Range Interpretation Comments THYROID STIMULATING HORMONE 2.53 uIU/mL 0.35-4.94 (BEAKER) (test code = 772) BASIC METABOLIC [id number] 16:10:00 Test Item Value Reference Range Interpretation [...] m DATA TO CALCULA TE ESTIMATED GFR. [id number] 16:09:00 Test Item Value Reference Range Interpretation Comments PHOSPHORUS (BEAKER) (test code = 3.0 mg/dL 2.3-4.7 604) [id number] 16:09:00 Test Item Value Reference Range Interpretation Comments MAGNESIUM (BEAKER) (test code = 2.0 mg/dL 1.6-2.6 627) LIPID [id number] 16:09:00 Test Item Value Reference Range Interpretation [...] 130-159 High 160-189 Very High >=190HEPATIC FUNCTION [id number] 16:09:00 Test Item Value Reference Range Interpretation [...] (test code = 22 U/L 6-55 347) [id number] 16:04:00 Test Item Value Reference Range Interpretation [...]
[2021-11-30] MEDS ORDERED: NITROGLYCERIN 0.4 MG/TAB SL ONE (18:16)
[2021-11-30 18:30] LABS: Absolute Lymphocytes (CBC) 2.2 K/uL (0.7-4.9); Hematocrit 46.2 % (39.6-49.0); Lymphocytes % 29.2 % (15.3-44.8); MPV 9.2 fL (7.6-11.3); RBC Red Blood Cell Count 5.33 M/uL (4.33-5.43)
[2021-11-30 18:32] LABS: Protime INR 0.93
--- NOTE | 2021-11-30 18:39 | RAD REPORT ---
EXAM DESCRIPTION: RAD - Chest Single View - 11/30/2021 6:12 pm CLINICAL HISTORY: CHEST PAIN Chest pain. COMPARISON: Chest Single View dated 08/25/2021; Chest Single View dated 03/16/2021; Chest Pa And Lat ( 2 Views) dated 02/25/2020; Chest Single View dated 09/02/2019 FINDINGS: Portable technique limits examination quality. Mild interstitial pulmonary edema. The heart is mildly enlarged with changes of a prior CABG. No disp laced fractures. IMPRESSION: Mild CHF.
[2021-11-30 18:50] LABS: ALT/SGPT 25 U/L (12-78); AST/SGOT 19 U/L (15-37); Albumin 3.3 g/dL (3.4-5.0); Alkaline Phosphatase 111 U/L (45-117); BUN Blood Urea Nitrogen 16 mg/dL (7-18); Bicarbonate 24 mmol/L (21-32); Bilirubin Direct < 0.1 mg/dL (0-0.2); Bilirubin Total 0.3 mg/dL (0.2-1.0); Glucose Level 314 mg/dL (74-106); Magnesium 1.8 mg/dL (1.8-2.4); NT PRO-BNP 103 pg/mL (<125); Potassium 3.9 mmol/L (3.5-5.1); Protein, Total 7.4 g/dL (6.4-8.2); Sodium Level 137 mmol/L (136-145)
[2021-11-30] MEDS ORDERED: ONDANSETRON 4 MG/2 ML VIAL ONE (18:53)
[2021-11-30] MEDS ORDERED: MORPHINE 4 MG/ML SYR ONE ×2 (18:53→21:35)
--- NOTE | 2021-11-30 20:45 | ER ---
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 Nitro helped for a ll1 little bit. 17:45 Initial Sepsis Screen: Does the patient meet any 2 criteria? No. Patient's initial bp sepsis screen is negative. Does the patient have a suspected source of infection? No. Patient's initial sepsis screen is negative. Risk Assessment: Do you want to hurt yourself or someone else? Patient reports no desire to harm self or others. Onset of symptoms was November 30, 2021 at 17:00. 17:45 Acuity: KEVIN 2 bp 17:45 Ebola Screen: No symptoms or risks identified at this time. bp 17:45 Method Of Arrival: Ambulatory bp 21:28 Coronavirus screen: At this time, the client does not indicate any symptoms associated as6 with coronavirus-19. Triage Assessment: 18:08 General: Appears in no apparent distress. comfortable, Behavior is calm, cooperative, bp appropriate for age. Pain: Complains of pain in chest. EENT: No deficits noted. Neuro: No deficits noted. Cardiovascular: Rhythm is sinus rhythm. Respiratory: No deficits noted. GI: No signs and/or symptoms were reported involving the gastrointestinal system. : No signs and/or symptoms were reported regarding the genitourinary system. Derm: No deficits noted. Musculoskeletal: No deficits noted. Historical: - Allergies: 17:41 NKA; ll1 - PMHx: 17:41 Diabetes - NIDDM; Chronic pain; Hypertension; Myocardial infarction; ll1 - PSHx: 17:41 None; ll1 - Immunization history:: Client reports receiving the 2nd dose of the Covid vaccine. - Social history:: Smoking status: Patient denies any tobacco usage or history of. Screenin:45 Abuse screen: Denies threats or abuse. Denies injuries from another. Nutritional bp screening: No deficits noted. Tuberculosis screening: No symptoms or risk factors identified. Fall Risk None identified. Assessment: 17:45 General: SEE TRIAGE NOTE. bp 19:52 Reassessment: Patient appears in no apparent distress at this time. Patient states as6 feeling better. Patient states symptoms have improved. 21:28 General: attempted to call report . as6 21:29 Pain: Complains of pain in back Pain does not radiate. Pain began chronic. as6 21:55 General: attempted to call report . as6 Vital Signs: 18:19 BP 121 / 71; Pulse 92; Resp 16; Temp 98; Pulse Ox 95% ; bp 19:52 BP 131 / 85; Pulse 78; Resp 18 S; Pulse Ox 96% on R/A; as6 21:09 Weight 134.72 kg (R); as6 21:52 BP 117 / 72; Pulse 79; Resp 18 S; Pulse Ox 95% on R/A; as6 22:42 BP 113 / 65; Pulse 77; Resp 18 S; Pulse Ox 95% on R/A; as6 ED Course: 17:29 Patient arrived in ED. as 17:41 Arm band placed on Patient placed in an exam room, on a stretcher. ll1 17:45 Patient has correct armband on for positive identification. Bed in low position. Call bp light in reach. Side rails up X2. Adult w/ patient. cardiac monitor on. Pulse ox on. NIBP on. 17:45 Patient maintains SpO2 saturation greater than 95% on room air. bp 17:46 Bipin Reid NP is PHCP. pm1 17:46 Seven Thakur MD is Attending Physician. pm1 18:00 EKG done, by ED staff, reviewed by Bipin Reid NP. em1 18:05 Luis Boyd, TIARRA is Primary Nurse. bp 18:08 Triage completed. bp 18:12 XRAY Chest (1 view) In Process Unspecified. EDMS 18:15 Inserted saline lock: 20 gauge in right forearm, using aseptic technique. Blood bp collected. 20:45 James Rg MD is Hospitalizing Provider. pm1 21:28 No provider procedures requiring assistance completed. Patient admitted, IV remains in as6 place. Administered Medications: 18:15 Drug: Nitroglycerin 0.4 mg Route: Sublingual; bp 20:30 Follow up: Response: No adverse reaction as6 18:45 Drug: morphine 4 mg Route: IVP; Site: right forearm; bp 20:30 Follow up: Response: No adverse reaction; RASS: Alert and Calm (0) as6 18:45 Drug: Zofran (Ondansetron) 4 mg Route: IVP; Site: right forearm; bp 20:30 Follow up: Response: No adverse reaction as6 21:21 Drug: Aspirin 325 mg Route: PO; as6 21:44 Follow up: Response: No adverse reaction as6 21:21 Drug: Lovenox (enoxaparin) 1 mg/kg Route: Sub-Q; Site: right lower abdomen; as6 21:44 Follow up: Response: No adverse reaction as6 21:36 Drug: morphine 4 mg Route: IVP; Site: right forearm; as6 21:44 Follow up: Response: No adverse reaction; RASS: Alert and Calm (0) as6 Outcome: 20:45 Decision to Hospitalize by Provider. pm1 22:42 Admitted to Tele accompanied by tech, via wheelchair, room 410, with chart, Report as6 called to nurse for 410 22:42 Condition: stable 22:42 Instructed on the need for admit. 22:43 Patient left the ED. as6 Signatures: Dispatcher [employer] EDMS Zayda Redmond Eric em1 Bipin Reid, EDUARD UTILITY APPRAISER pm1 Luis Boyd RN RN bp Michael Carpio RN RN ll1 Iain Smith RN RN as6 Corrections: (The following items were deleted from the chart) 18:42 18:19 BP 121 / 71; Pulse 92bpm; Resp 16bpm; Pulse Ox 95%; bp bp
--- NOTE | 2021-11-30 20:46 | EDPHYS ---
Physician Documentation [facility] Name: Armond Beltrán Age: 66 yrs Sex: Male : 1955 Arrival Date: 11/30/2021 Time: 17:29 Bed 2 Private MD: ED Physician Seven Thakur HPI: 11/30 17:47 This 66 yrs old Male presents to ER via Ambulatory with complaints of Chest pm1 Pain. 17:47 The patient or guardian reports chest pain that is located primarily in the The patient pm1 or guardian reports chest pain that is located primarily in the mid-sternal area. Onset: 30 minutes prior to arrival. The pain does not radiate. Associated signs and symptoms: Pertinent positives: shortness of breath, Pertinent negatives: abdominal pain, cough, dizziness, headache, nausea, vomiting. The chest pain is described as dull. Duration: The patient or guardian reports a single episode, that is still ongoing. Modifying factors: The symptoms are alleviated by nothing. the symptoms are aggravated by nothing. Severity of pain: in the emergency department the pain is unchanged. The patient has experienced similar episodes in the past, a few times. The patient has not recently seen a physician, the patient's primary care provider is Dr. Rg. 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 Historical: - Allergies: 17:41 NKA; ll1 - PMHx: 17:41 Diabetes - NIDDM; Chronic pain; Hypertension; Myocardial infarction; ll1 - PSHx: 17:41 None; ll1 - Immunization history:: Client reports receiving the 2nd dose of the Covid vaccine. - Social history:: Smoking status: Patient denies any tobacco usage or history of. ROS: 17:47 Constitutional: Negative for fever, chills, and weight loss. pm1 17:47 Abdomen/GI: Negative for abdominal pain, nausea, vomiting, diarrhea, and constipation, Back: Negative for injury and pain, MS/Extremity: Negative for injury and deformity, Skin: Negative for injury, rash, and discoloration, Neuro: Negative for headache, weakness, numbness, tingling, and seizure. 17:47 Cardiovascular: Positive for chest pain, Negative for edema, palpitations. 17:47 Respiratory: Positive for shortness of breath, Negative for cough. 17:47 All other systems are negative. Exam: 17:47 Constitutional: This is a well developed, well nourished patient who is awake, alert, pm1 and in no acute distress. Head/Face: Normocephalic, atraumatic. 17:47 Back: No spinal tenderness. No costovertebral tenderness. Full range of motion. Skin: Warm, dry with normal turgor. Normal color with no rashes, no lesions, and no evidence of cellulitis. MS/ Extremity: Pulses equal, no cyanosis. Neurovascular intact. Full, normal range of motion. 17:47 Eyes: Exam is negative for acute changes, Periorbital structures: appear normal, Extraocular movements: no acute changes, Sclera: no acute changes, icterus, is not appreciated. 17:47 ENT: Exam is negative for acute changes, Mouth: no acute changes, Lips: normal, moist, Oral mucosa: normal, pink and intact, moist. 17:47 Cardiovascular: Exam negative for acute changes, Rate: normal, Rhythm: regular, Pulses: no pulse deficits are appreciated, Heart sounds: normal. 17:47 Respiratory: Exam negative for acute changes, respiratory distress, shortness of breath, Breath sounds: are clear throughout. 17:47 Abdomen/GI: Inspection: obese Palpation: abdomen is soft and non-tender, in all quadrants. 17:47 Neuro: Exam negative for acute changes, Orientation: is normal, Mentation: is normal, Motor: is normal, moves all fours. Vital Signs: 18:19 BP 121 / 71; Pulse 92; Resp 16; Temp 98; Pulse Ox 95% ; bp 19:52 BP 131 / 85; Pulse 78; Resp 18 S; Pulse Ox 96% on R/A; as6 21:09 Weight 134.72 kg (R); as6 21:52 BP 117 / 72; Pulse 79; Resp 18 S; Pulse Ox 95% on R/A; as6 22:42 BP 113 / 65; Pulse 77; Resp 18 S; Pulse Ox 95% on R/A; as6 MDM: 17:48 Patient medically screened. pm1 18:00 Data reviewed: vital signs. pm1 20:45 Counseling: I had a detailed discussion with the patient and/or guardian regarding: the pm1 historical points, exam findings, and any diagnostic results supporting the discharge/admit diagnosis, lab results, radiology results, the need for further work-up and treatment in the hospital. 20:48 Physician consultation: James Rg MD regarding admission, patient's condition, and pm1 will see patient tomorrow, would like consultation with Dr. Grayson. 21:06 Physician consultation: Floyd Grayson MD was contacted at 21:06, regarding consult, pm1 patient's condition, and will see patient tomorrow, Patient is allowed to eat. Not NPO. 11/30 17:47 Order name: Basic Metabolic Panel pm1 11/30 17:47 Order name: CBC with Diff pm1 11/30 17:47 Order name: LFT's; Complete Time: 18:50 pm1 11/30 17:47 Order name: Magnesium; Complete Time: 18:50 pm1 11/30 17:47 Order name: NT PRO-BNP; Complete Time: 18:50 pm1 11/30 17:47 Order name: PT-INR; Complete Time: 18:34 pm1 11/30 17:47 Order name: Troponin HS; Complete Time: 18:50 pm1 11/30 17:47 Order name: XRAY Chest (1 view); Complete Time: 18:50 pm1 11/30 17:47 Order name: Basic Metabolic Panel; Complete Time: 18:50 EDMS 11/30 17:47 Order name: CBC with Automated Diff; Complete Time: 18:50 EDMS 11/30 20:36 Order name: COVID-19 SARS RT PCR (Document "Date of Onset" if Symptomatic); Complete pm1 Time: 23:03 11/30 17:47 Order name: EKG; Complete Time: 17:47 pm1 11/30 17:47 Order name: Cardiac monitoring; Complete Time: 18:18 pm1 11/30 17:47 Order name: EKG - Nurse/Tech; Complete Time: 18:00 pm1 11/30 17:47 Order name: IV Saline Lock; Complete Time: 18:18 pm1 11/30 17:47 Order name: Labs collected and sent; Complete Time: 18:18 pm1 11/30 17:47 Order name: O2 Per Protocol; Complete Time: 18:06 pm1 11/30 17:47 Order name: O2 Sat Monitoring; Complete Time: 18:06 pm1 11/30 21:16 Order name: CONS Physician Consult EDMS Administered Medications: 18:15 Drug: Nitroglycerin 0.4 mg Route: Sublingual; bp 20:30 Follow up: Response: No adverse reaction as6 18:45 Drug: morphine 4 mg Route: IVP; Site: right forearm; bp 20:30 Follow up: Response: No adverse reaction; RASS: Alert and Calm (0) as6 18:45 Drug: Zofran (Ondansetron) 4 mg Route: IVP; Site: right forearm; bp 20:30 Follow up: Response: No adverse reaction as6 21:21 Drug: Aspirin 325 mg Route: PO; as6 21:44 Follow up: Response: No adverse reaction as6 21:21 Drug: Lovenox (enoxaparin) 1 mg/kg Route: Sub-Q; Site: right lower abdomen; as6 21:44 Follow up: Response: No adverse reaction as6 21:36 Drug: morphine 4 mg Route: IVP; Site: right forearm; as6 21:44 Follow up: Response: No adverse reaction; RASS: Alert and Calm (0) as6 Disposition: 12/01 07:26 Co-signature as Attending Physician, Seven Thakur MD I agree with the assessment and rn plan of care. Attestation: The patient's history, exam findings, diagnostics, and a summary of any interventions or procedures was reviewed in detail with Bipin Reid NP. Disposition Summary: 11/30/21 20:45 Hospitalization Ordered Hospitalization Status: Observation pm1 Provider: James Rg pm1 Condition: Stable pm1 Problem: new pm1 Symptoms: have improved pm1 Bed/Room Type: Standard pm1 Location: Telemetry/MedSurg (Inpatient)(11/30/21 22:33) Room Assignment: 410(11/30/21 22:33) Diagnosis - Chest pain, unspecified pm1 Forms: - Medication Reconciliation Form pm1 - SBAR form pm1 Signatures: Dispatcher [employer] Tayler Vo RN RN mw Nieto, Roman, MD MD rn Marinas, Patrick, NP DIE TRIPPER pm1 Luis Boyd RN RN bp Lewis, Lynsay, RN RN ll1 Iain Smith RN RN as6 Corrections: (The following items were deleted from the chart) 11/30 21:20 20:45 Telemetry/MedSurg (observation) pm1 mw 21:20 20:45 pm1 mw 22:33 21:20 Intensive Care Unit mw mw 22:33 21:20 1- mw mw
[2021-11-30] MEDS ORDERED: ASPIRIN 325 MG TAB ONE (21:15)
[2021-11-30] MEDS ORDERED: ENOXAPARIN 30 MG/0.3 ML SQ ONE (21:16)
[2021-11-30] MEDS ORDERED: ENOXAPARIN 100 MG/ML SYR SQ ONE (21:16)
[2021-11-30] MEDS ORDERED: GLUCAGON 1 MG/VIAL IM PRN (22:03)
[2021-11-30] MEDS ORDERED: D50W 25 GM/50 ML SYRINGE IV PRN (22:03)
[2021-11-30] MEDS ORDERED: ONDANSETRON 4 MG/2 ML VIAL IV PRN (22:03)
[2021-12-01 00:23] VITALS: BMI 39.2
[2021-12-01] MEDS: INSULIN -REGULAR HUMAN 50 UNIT/0.5 ML ML SQ SCH ×2 (00:35→07:30)
[2021-12-01] MEDS: MORPHINE 4 MG/ML SYR IV PRN ×2 (01:07→08:48)
[2021-12-01 03:59] LABS: Absolute Lymphocytes (CBC) 2.5 K/uL (0.7-4.9); Hematocrit 43.9 % (39.6-49.0); Lymphocytes % 36.9 % (15.3-44.8); MPV 9.3 fL (7.6-11.3); RBC Red Blood Cell Count 5.02 M/uL (4.33-5.43)
[2021-12-01 04:17] VITALS: O2SAT 95
[2021-12-01 04:28] LABS: Troponin High Sensitivity 10.2 pg/mL (<58.9)
[2021-12-01 04:35] LABS: Potassium 4.3 mmol/L (3.5-5.1)
[2021-12-01] MEDS ORDERED: PNEUMOCOCCAL VACCINE 0.5 ML IMVAC ONE (08:00)
[2021-12-01] MEDS ORDERED: ASPIRIN EC 81 MG TAB PO SCH (09:00)
--- NOTE | 2021-12-01 10:16 | EKG ---
Test Date: 2021-11-30 Test Time: 17:51:07 [employer] Controller: MATTHEW MEASUREMENT RESULTS: Intervals: Rate: 95 FL: 148 QRSD: 152 QT: 412 QTc: 517 [place]: P: 59 FL: 148 QRS: 265 T: 34 INTERPRETIVE STATEMENTS: Sinus rhythm with premature supraventricular complexes Right bundle branch block Possible Lateral infarct, age undetermined Inferior infarct, age undetermined Abnormal ECG Compared to ECG 08/25/2021 12:04:04 No significant changes Electronically Signed On 12-01-21 10:14:34 COMPANY LAUNDRY WORKER by Floyd Grayson
[2021-12-01 11:27] VITALS: BP 140/88; TEMP 97.9
--- NOTE | 2021-12-02 13:01 | P.SSS ---
Patient History Date of Service: 12/02/21 Reason for admission: CHEST PAIN History of Present Illness: HAD CHEST PAIN, NTG DID NOT WORK BUT FENTANYL WORKED. HE HAS BEEN ON NARCOTICS FOR BACK PAIN FOR YEARS. HE ALSO IS COVID POSITIVE WITHOUT SYMPTOMS. HE RULED OUT FOR MO. HE IS STABLE TO GO HOME WITH FU IN TWO WEEKS WITH DR. WINSLOW. HE UNDERSTANDS THE PLAN AND IS WANTING TO GO HOME. Allergies No Known Allergies Allergy (Verified 01/17/19 20:21) Home medications list reviewed: Yes Home Medications: Hydrocodone 10/APAP 325 [[place] 10/325*] 1 tab PO TID 09/02/19 Aspirin 81 mg PO DAILY 09/03/19 Cholecalciferol (Vitamin D3) [Vitamin D3] 2,000 unit PO DAILY 09/03/19 Finasteride [Proscar*] 5 mg PO DAILY 09/03/19 Glyburide/Metformin HCl [Glucovance 5-500 mg Tablet] 1 tab PO BID 09/03/19 Tamsulosin [Flomax*] 0.4 mg PO DAILY 09/03/19 Pantoprazole [Protonix Tab] 40 mg PO DAILY 30 Days #30 tab 12/01/21 - Past Medical/Surgical History Has patient received pneumonia vaccine in the past: Yes Diabetic: Yes -: CAD -: NIDDM -: obstructive sleep apnea -: Chronic back pain -: Hyperlipedemia -: Heart cath/with stents x3 -: laminectomy -: coronary artery bypass graft - Family History Brother -: Heart disease - Social History Smoking Status: Never smoker Alcohol use: No CD- Drugs: No Caffeine use: No Place of Residence: Home Physical Examination - Vital Signs Temperature: 97.9 F Blood Pressure: 140/88 Pulse: 71 Respirations: 17 Pulse Ox (%): 91 - Physical Exam General: Oriented x3, Mild distress, Obese HEENT: Atraumatic, PERRLA, Mucous membr. moist/pink, EOMI, Sclerae nonicteric Neck: Supple, 2+ carotid pulse no bruit, No LAD, Without JVD or thyroid abnormality Respiratory: Clear to auscultation bilaterally, Normal air movement Cardiovascular: Regular rate/rhythm, Normal S1 S2 Gastrointestinal: Normal bowel sounds, No tenderness Musculoskeletal: No tenderness Integumentary: No rashes Neurological: Normal gait, Normal speech, Normal strength at 5/5 x4 extr, Normal tone, Normal affect Lymphatics: No axilla or inguinal lymphadenopathy - Diagnosis (Problem(s)) (1) Atypical chest pain Status: Acute Plan: HIS PAIN IS ATYPICAL HE WILL GET ST TEST WITH DR. WINSLOW. COVID CAN GIVE RISE TO PAIN AND DYEPNEA. HE HAS NO OTHER COVID SYMPTOM. (2) COVID Status: Acute Plan: ASYMPTOMATIC NO RX NO SPECIFIC THERAPY IS AVAILABLE AND ALSO HE IS VERY STABLE. - Disposition Disposition: ROUTINE DISCHARGE Condition: GOOD
== END 2021-12-01 11:00 | disposition home or self-care (01) ==
LOC: ER 17:28 → ERHOLD 21:12 → 3RD-ICU 21:56 → 4TH 22:38
PROVIDERS: ADMIT Internal Medicine; ATTEND Internal Medicine
DX: R07.89 Other chest pain (principal); U07.1 COVID-19; I25.10 Atherosclerotic heart disease of native coronary artery without angina pectoris; G89.29 Other chronic pain; M54.9 Dorsalgia, unspecified; E11.9 Type 2 diabetes mellitus without complications; G47.33 Obstructive sleep apnea (adult) (pediatric); E78.5 Hyperlipidemia, unspecified; I25.2 Old myocardial infarction; Z23 Encounter for immunization; Z95.1 Presence of aortocoronary bypass graft; Z95.5 Presence of coronary angioplasty implant and graft; Z79.82 Long term (current) use of aspirin; Z79.899 Other long term (current) drug therapy; Z82.49 Family history of ischemic heart disease and other diseases of the circulatory system
CPT/HCPCS: 93005; 85025 ×2; 80048 ×2; 36415; 83735; 85610; 82947 ×2; 80076; 84484 ×3; 83880; 71045; 90471; 90732; 96375; 96372; 96374; 99285; U0003; J1650 ×3; J2405 ×2; G0378

== ENCOUNTER 2022-08-11 14:52 | Observation (INO) | payer OTHER ==
--- OUTSIDE RECORDS SUMMARY | 2022-08-11 14:59 | XMS REPORT | Continuity of Care Document ---
:1955 Author Organization [facility] t Address [address] [place] [address] Care Team Providers Name Role Phone Sharpless Primary Care Physician DORETHA MENDOZA Attending Clinician Unavailable Orestes Mojica Attending Clinician ORESTES MOJICA Attending Clinician Unavailable Doctor Unassigned, [place] Attending Clinician Unavailable DI ORTIZ Attending Clinician Unavailable DI ORTIZ Admitting Clinician Unavailable Payers Payer Name Policy Type Policy Number Effective Date Expiration Date S [facility] [id number] 2015 MEDICARE GOLD 00:00:00 [employer]ET[employer] MEDICARE ADV [id number] 2017 00:00:00 Problems Condition Condition Condition Status Onset Resolution Last Treating Co mments Source Name Details Category Date Date Treatment Clinician Date Acute Acute Disease Active [facility] blood loss blood loss 2-13 Ashley kes anemia anemia 00:00: [facility] Thrombocyt Thrombocyt Disease Active [facility] openia openia [facility] Acute Acute Disease Active [facility] postoperat postoperat 2-13 Ashley kes marti pain marti pain 00:00: Medica l 00 [facility] Hyperglyce Hyperglyce Disease Active [facility] chinyere chinyere 2-13 [facility] Borderline Borderline Disease Active [facility] diabetes diabetes 2-13 [facility] Acute Acute Disease Active [facility] respirator respirator 2-13 Ashley kes y y 00:00: Medical insufficie insufficie 00 Ce nter ncy, ncy, postoperat postoperat marti marti CAD CAD Disease Active [facility] (coronary (coronary 2-13 Luke s artery artery 00:00: Medical disease) disease) 00 Center S/P CABG x S/P CABG x Disease Active [facility] 4 4 2-13 [facility] Chronic Chronic Disease Active [facility] pain pain 2-13 [facility] Allergies, Adverse Reactions, Alerts Allergy Allergy Status Severity Reaction(s) Onset Inactive Treating Comm ents Source Name Type Date Date Clinician NO KNOWN Drug Active [facility] ALLERGIE Class ity of [facility] Social History Social Habit Start Date Stop Date Quantity Comments Source Alcohol intake 2017-11-29 2017-11-[address] [facility] [address] Kayla es 00:00:00 00:00:00 non-drinker of Medical Ce nter alcohol (finding) Tobacco use and 2017-11-28 2017-11-[address] [facility] [address] Ashley kes exposure 00:00:00 00:00:00 [facility] Center Sex Assigned At [address] [facility] Ashley kes 00:00:00 00:00:00 [facility] Center Smoking Status Start Date Stop Date Source Never smoker [facility] Medications Ordered Filled Start Stop Current Ordering Indication Dosage Frequency Signature Comments Components Source Medication Medication Date Date Medication? Clinician (SIG) Name Name tamsulosin Yes .4mg QD Take 1 [facility] (FLOMAX) 2-20 capsule [facility] 0.4 mg Cp24 00:00: (0.4 mg Med ical 24 hr 00 total) by Center capsule mouth daily. HYDROcodone Yes 1{tbl} Take [address] -acetaminop 2-19 tablet by Kayla montes de oca (NORCO 17:49: mouth Medica l 10-325) 47 every 6 Center 10-325 mg (six) per tablet hours as needed for Pain. diazePAM Yes 10mg Take [address] [address] (VALIUM) 10 2-19 by mouth Luke s MG tablet 17:49: every 6 Medic al 47 (six) Center hours as needed for Anxiety. Procedures This patient has no known procedures. Encounters Start End Encounter Admission Attending Care Care Encounter Source Date/Time Date/Time Type Type Clinicians Facility Department ID 2021-01-03 2021-01-03 Outpatient [facility] [id number] 17:10:00 17:10:00 [facility] 2020-12-13 2020-12-13 Outpatient R REJI, [facility] [id number] [facility] 16:00:00 16:00:00 DORETHA [facility] 2020-10-30 2020-10-30 [facility] [id number] 14:49:11 23:59:00 Encounter Yahaira Hughes [id number] [place] [id number] [place] [id number] 2020-10-30 2020-10-30 Outpatient R SHAGUFTA [facility] [id number] [facility] 00:00:00 00:00:00 [facility] 2020-10-30 2020-10-30 Orders Doctor ATUL [id number] 00:00:00 00:00:00 Only Unassigned, AMIE [id number] [place] [facility] [id number] Results Test Description Test Time Test Comments Results Result Comments Source CULTURE, URINE 2022-01-01 SPECIMEN NUMBER: 09:10:33 [id number] CULTURE, URINE SPECIMEN NUMBER: [id number] SPECIMEN COMMENT: URINE SOURCE: URINE REPORT STATUS: FINAL FINAL REPORT: 01/01/2022 >100,000 CFU/ML MIXED MICROBIAL POPULATION PRESENT, NO PREDOMINATING ORGANISMS;PROBABLE CONTAMINANTS. CT/NG, NAAT, URINE 2021-12-31 19:56:17 Test Item Value Reference Range Interpretation Comme nts GONORRHEA, NAAT NEGATIVE NEGATIVE IMPORT ANT NOTICE: SEE ANNOUNCEMENT AT (test code = [email or web address] Note: 86152) Assay methodolo gy is nucleic acid amplification by transcriptio n mediated amplification (TMA) utilizing the A ptima Combo 2 Assay. CHLAMYDIA, NAAT NEGATIVE NEGATIVE IMPORT ANT NOTICE: SEE ANNOUNCEMENT AT (test code = [email or web address] [email or web address] Note: 92508) Assay methodolo gy is nucleic acid amplification by transcriptio n mediated amplification (TMA) utilizing the A ptima Combo 2 Assay. [id number] 06:53:53 Test Item Value Reference Range Interpretation Comments RPR RESULT (test code = NON-REACTIVE NON-REACTIVE 3500) RPR TITER (test code = 3500) NOT INDIC. TITER NOT INDIC. COMPREHENSIVE METABOLIC [id number] 06:47:48 Test Item Value Reference Range Interpretation Comments GLUCOSE (test code = 267 MG/DL 70-99 H 2216) BUN (test code = 19 MG/DL 8-23 2207) CREATININE (test 1.13 MG/DL 0.80-1.40 code = 2214) eGFR (2020 CKD-EPI) 72 >60 (test code = 39463) ML/MIN/1.73 CALC BUN/CREAT (test 17 RATIO 6-28 code = 2235) SODIUM (test code = 137 MEQ/L 065-724 6171) POTASSIUM (test code 4.2 MEQ/L 3.5-5.4 = 8) CHLORIDE (test code 97 MEQ/L 95-107 = 2215) CARBON DIOXIDE (test 23 MEQ/L 19-31 code = 2206) CALCIUM (test code = 9.3 MG/DL 8.5-10.5 2208) PROTEIN, TOTAL (test 7.8 G/DL 6.1-8.3 code = 2229) ALBUMIN (test code = 4.0 G/DL 3.5-5.2 2200) CALC GLOBULIN (test 3.8 G/DL 1.9-3.7 H code = 2240) CALC A/G RATIO (test 1.1 RATIO 1.0-2.6 code = 2234) BILIRUBIN, TOTAL 0.4 MG/DL See_Comment [Automated message] (test code = 2207) The syste m which generated this result transmitted ref erence range: <=1.2. T he reference range was not used to int erpret this result as normal/abnormal . ALKALINE PHOSPHATASE 95 U/L 40-123 (test code = 2204) AST (test code = 17 U/L 9-50 2218) ALT (test code = 17 U/L 5-50 UNLESS OTH ERWISE 2219) INDICATED, ALL TESTING PERFORM ED ATCLINICAL PATH [facility], I [address] [place] [address] [facility] DIRECTOR: CRISTIANE MG M.D. [place] NUMBER [id number] CAP ACCREDITATION N O. [id number] HIV 1/2 4TH GEN, RFLX [id number] 06:40:50 Test Item Value Reference Range Interpretation Comments HIV 1/2 4TH GEN, RFLX CONF (test NON-REACTIVE NON-REACTIVE code = 3514) HEPATITIS PANEL, [id number] 06:40:50 Test Item Value Reference Range Interpretation Comments HEPATITIS A IgM (test NON-REACTIVE NON-REACTIVE code = 64735) HEPATITIS B CORE IgM NON-REACTIVE NON-REACTIVE (test code = 4644) HEPATITIS B SURF AG NON-REACTIVE NON-REACTIVE (test code = 2739) HEPATITIS C ANTIBODY NON-REACTIVE NON-REACTIVE (test code = 4675) INTERPRETATION (NOTE) Hepatitis A HEPATITIS A: (test code sero logy shows no = 2552) evidence of acu te hepatitis A. INTERPRETATION (NOTE) Hepatitis B HEPATITIS B: (test code sero logy shows no = 65409) evidence of acu te hepatitis B and no indication of exposure to hepatitis B vir us in the previous anastasiya eight months. INTERPRETATION (NOTE) Hepatitis C HEPATITIS C: (test code sero logy shows no = 78404) evidence of exposure to hepatitisC viru s at this time. I t can take up to 12 months after exposure tothe hepatitis C vir us for antibodies to become detectab le in the blood in certain patient s. HEMOGLOBIN [id number] 06:38:59 Test Item Value Reference Range Interpretation Comments HEMOGLOBIN A1c (test 9.8 % 4.2-5.6 H AMERIC AN DIABETES code = 49454) ASSOCIATION IDELINES FOR HGB A1C: PREDIABETES/INC REASED RISK . . . . . . . 5.7 -6.4% DIAGNOSIS OF DI ABETES . . . . . . . . . >=6 .5% WITH CONFIRMATION OR APPROPRIATE SYMPTOMS NOTE: ASSAY MAY BE AFFECTED BY HEMOGLOBINOPATH IES (SICKLE CELL ANEMIA, S- C DISEASE, OTHERS) OR CANDIS FICIALLY LOWERED BY DECR EASED RED CELL SURVIVAL ( HEMOLYTIC ANEMIAS, BLOOD LOSS, ETC.). CONSIDER ALTERN ATE TESTING OR LABORATORY C ONSULTATION. CBC W/AUTO DIFF WITH [id number] 05:22:25 Test Item Value Reference Range Interpretation Comments WBC (test code = 8.1 K/UL 3.5-11.0 1001) RBC (test code = 5.33 M/UL 4.50-6.10 1002) HEMOGLOBIN (test code 15.5 G/DL 13.5-17.0 = 1003) HEMATOCRIT (test code 45.0 % 40.0-51.0 = 1004) MCV (test code = 84.4 fL 80.0-99.0 1005) MCH (test code = 29.1 PG 25.0-33.0 1006) MCHC (test code = 34.4 G/DL 31.0-36.0 1007) RDW (test code = 12.5 % 11.5-15.0 1038) NEUTROPHILS (test 64.8 % code = 1008) LYMPHOCYTES (test 26.4 % code = 1010) MONOCYTES (test code 6.3 % = 1011) EOSINOPHILS (test 1.6 % code = 1012) BASOPHILS (test code 0.2 % = 1013) IMMATURE GRANULOCYTES 0.7 % (test code = 1036) NUCLEATED RBCS (test 0.0 /100 WBC'S See_Comment [Aut omated code = 1065) message] The sy stem which generated this result transmitted reference range : 0.0. The refere nce range was not u sed to interpret th is result as normal/abnormal . PLATELET COUNT (test 200 K/UL 130-400 code = 1015) ABSOLUTE NEUTROPHILS 5.25 K/UL 1.50-7.50 (test code = 1066) ABSOLUTE LYMPHOCYTES 2.14 K/UL 1.00-4.00 (test code = 1067) ABSOLUTE MONOCYTES 0.51 K/UL 0.20-1.00 (test code = 1068) ABSOLUTE EOSINOPHILS 0.13 K/UL 0.00-0.50 (test code = 1040) ABSOLUTE BASOPHILS 0.02 K/UL 0.00-0.20 (test code = 1069) ABS IMMATURE 0.06 K/UL 0.00-0.10 GRANULOCYTES (test code = 1020) ABS NUCLEATED RBCS 0.00 K/UL 0.00-0.11 (test code = 44410) SARS-COV2/RT-PCR ([facility])2020-02-25 10:48:00 Test Item Value Reference Range Interpretation Comments SARS-COV2/RT-PCR (test Not Detected Not Detected, Negative code = 1313642) SARS-COV-2 PERFORMING LAB [facility] (test code = 3571354) Negative results do not preclude SARS-CoV-2 infection [...] of the Act.Fact Sheet for Healthcare Pro viders:https://www.StartSpanish.Acrinta/Documents/Xpert%20Xpress%20SARS%20CoV-2/Fact%20Sh eets/766-0722%13QWBW-XLF-6%20HEALTHCARE%20PROVIDERS%20FACT%20SHEET.pdfFact Sheet for Healthcare Patients:https://www.Nano Think id.Acrinta/Documents/Xpert%20Xpress%20SARS%20CoV-2/Fact%20Sheets/3023801%20SARS-COV -2%20PATIENT%20FACT%20SHEET.pdfPerforming Laboratory:[facility] [place], [place] [address]RBKB-VENVPRF [id number] 12:24:00 Test Item Value Reference Range Interpretation Comments POC-GLUCOSE METER 255 mg/dL 70-110 H TESTED AT [place] [address] (BEAKER) (test code = [facility] Sen [facility] 1538) [address] POCT-GLUCOSE [id number] 08:35:00 Test Item Value Reference Range Interpretation Comments POC-GLUCOSE METER 127 mg/dL 70-110 H TESTED AT [place] [address] (BEAKER) (test code = [facility] 1538) [address] POCT-GLUCOSE [id number] 00:25:00 Test Item Value Reference Range Interpretation Comments POC-GLUCOSE METER 177 mg/dL 70-110 H TESTED AT [place] [address] (BEAKER) (test code = [facility] 1538) [address] HEMOGLOBIN [id number] 14:20:00 Test Item Value Reference Range Interpretation Comments HEMOGLOBIN A1C (BEAKER) (test code = 6.9 % 4.3-6.1 H 368) BASIC METABOLIC [id number] 07:34:00 Test Item Value Reference Range Interpretation [...] ESTIMATED GFR. CBC W/PLT COUNT & AUTO [id number] 06:38:00 Test Item Value Reference Range Interpretation [...] PERCENT (BEAKER) (test code = 2801) POCT-GLUCOSE [id number] 21:40:00 Test Item Value Reference Range Interpretation Comments POC-GLUCOSE METER 171 mg/dL 70-110 H TESTED AT [facility] 6720 (BEAKER) (test code = SADA Chatterjee [place] 1538) [address] POCT-GLUCOSE [id number] 18:53:00 Test Item Value Reference Range Interpretation Comments POC-GLUCOSE METER 136 mg/dL 70-110 H TESTED AT [facility] 6720 (BEAKER) (test code = SADA Chatterjee [facility] 1538) [address] BASIC METABOLIC [id number] 05:58:00 Test Item Value Reference Range Interpretation [...] m DATA TO CALCULA TE ESTIMATED GFR. [id number] 05:57:00 Test Item Value Reference Range Interpretation Comments MAGNESIUM (BEAKER) (test code = 1.9 mg/dL 1.6-2.6 627) CBC W/PLT COUNT & AUTO [id number] 05:11:00 Test Item Value Reference Range Interpretation [...] PERCENT (BEAKER) (test code = 2801) POCT-GLUCOSE [id number] 21:45:00 Test Item Value Reference Range Interpretation Comments POC-GLUCOSE METER 177 mg/dL 70-110 H TESTED AT [facility] 6720 (BEAKER) (test code = SADA JERONIMO 1538) [address] POCT-GLUCOSE [id number] 18:49:00 Test Item Value Reference Range Interpretation Comments POC-GLUCOSE METER 216 mg/dL 70-110 H TESTED AT [facility] 6720 (BEAKER) (test code = [place] 1538) [address] POCT-GLUCOSE [id number] 09:56:00 Test Item Value Reference Range Interpretation Comments POC-GLUCOSE METER 202 mg/dL 70-110 H TESTED AT [facility] 6720 (BEAKER) (test code = [place]ADA [place] 1538) [address] [id number] 09:37:00 Test Item Value Reference Range Interpretation Comments PROTIME (BEAKER) (test code = 14.5 seconds 11.7-14.7 759) INR (BEAKER) (test code = 370) 1.1 <=5.9 PARTIAL THROMBOPLASTIN TIME 32.4 seconds 22.5-36.0 (BEAKER) (test code = 760) RECOMMENDED COUMADIN/WARFARIN INR THERAPY RANGESSTANDARD DOSE: 2.0 - 3.0 Includes: PROPHYLAXIS for venous thrombosis, systemic embolization; TREATMENT for venous thrombosis and/or pulmonary embolus.HIGH RISK: Target INR is 2.5-3.5 for patients with mechanical heart valves.BASIC METABOLIC [id number] 09:24:00 Test Item Value Reference Range Interpretation [...] m DATA TO CALCULA TE ESTIMATED GFR. [id number] 09:16:00 Test Item Value Reference Range Interpretation Comments MAGNESIUM (BEAKER) (test code = 1.8 mg/dL 1.6-2.6 627) CBC W/PLT COUNT & AUTO [id number] 08:53:00 Test Item Value Reference Range Interpretation [...] EOSINOPHILS ABSOLUTE COUNT 0.14 K/ L 0.04-0.54 ([facility]) (test code = 416) BASOPHILS ABSOLUTE COUNT ([facility]) 0.01 K/ L 0.01-0.08 (test code = 417) IMMATURE GRANULOCYTES-RELATIVE 0 % 0-1 PERCENT ([facility]) (test code = 2801) POCT-GLUCOSE [id number] 21:32:00 Test Item Value Reference Range Interpretation Comments POC-GLUCOSE METER 200 mg/dL 70-110 H TESTED AT [place] [address] ([facility]) (test code = [facility] 1538) [address] POCT-GLUCOSE [id number] 17:42:00 Test Item Value Reference Range Interpretation Comments POC-GLUCOSE METER 191 mg/dL 70-110 H TESTED AT [place] [address] ([facility]) (test code = [facility] 1538) [address] HEMOGLOBIN AND [id number] 15:51:00 Test Item Value Reference Range Interpretation Comments HEMOGLOBIN ([facility]) (test code = 7.4 GM/DL 13.7-17.5 L 410) HEMATOCRIT ([facility]) (test code = 23.9 % 40.1-51.0 L 411) POCT-GLUCOSE [id number] 13:02:00 Test Item Value Reference Range Interpretation Comments POC-GLUCOSE METER 190 mg/dL 70-110 H TESTED AT [place] [address] ([facility]) (test code = [facility] 1538) [address] POCT-GLUCOSE [id number] 08:10:00 Test Item Value Reference Range Interpretation Comments POC-GLUCOSE METER 176 mg/dL 70-110 H TESTED AT [place] [address] ([facility]) (test code = [facility] 1538) [address] RAD, CHEST, 1 VIEW, NON [id number] 07:47:00Reason for exam:->pl effusionShould this be performed at the bedside?->YesFINAL REPORT Chest one view compared to November 30 Discussion: Mild pulmonary c ongestion and probable left lower lung atelectasis. I could not exclude small left effusion. No pneumothorax. IMPRESSIONS: Similar cardiopulmonary appearance. Signed: Atul Mcdonoughort Verified Date/Time: 12/01/2017 07:47:00 Reading Location: [facility] Reading Room BASIC METABOLIC [id number] 05:25:00 Test Item Value Reference Range Interpretation [...] m DATA TO CALCULA TE ESTIMATED GFR. [id number] 05:18:00 Test Item Value Reference Range Interpretation Comments MAGNESIUM (BEAKER) (test code = 1.8 mg/dL 1.6-2.6 627) CBC W/PLT COUNT & AUTO [id number] 04:59:00 Test Item Value Reference Range Interpretation [...] PERCENT (BEAKER) (test code = 2801) POCT-GLUCOSE [id number] 22:11:00 Test Item Value Reference Range Interpretation Comments POC-GLUCOSE METER 190 mg/dL 70-110 H TESTED AT [facility] 67 (BEAKER) (test code = SADA Chatterjee [place] 1538) [address] POCT-GLUCOSE [id number] 16:58:00 Test Item Value Reference Range Interpretation Comments POC-GLUCOSE METER 193 mg/dL 70-110 H TESTED AT [facility] 6720 (BEAKER) (test code = SADA Chatterjee [place] 1538) [address] CBC (HEMOGRAM ONLY)2017-11-30 13:05:00 Test Item Value [...] RED BLOOD CELLS 0 /100 WBC 0-0 (AKER) (test code = 413) POCT-GLUCOSE [id number] 12:06:00 Test Item Value Reference Range Interpretation Comments POC-GLUCOSE METER 142 mg/dL 70-110 H TESTED AT [place] [address] ([facility]) (test code = MEAGANFOUZIA Chatterjee [facility] 1538) [address] POCT-GLUCOSE [id number] 09:23:00 Test Item Value Reference Range Interpretation Comments POC-GLUCOSE METER 108 mg/dL 70-110 TESTED AT [place] [address] ([facility]) (test code = SADA Chatterjee [facility] 1538) [address] [id number] 05:44:00 Test Item Value Reference Range Interpretation Comments ACTIVATED CLOTTING TIME 103 sec TEST ED AT [place] [address] ([facility]) (test code = SADA Chatterjee [facility] 441) [address] [id number] 05:44:00 Test Item Value Reference Range Interpretation Comments ACTIVATED CLOTTING TIME 439 sec TEST ED AT [place] [address] ([facility]) (test code = SADA Chatterjee [facility] 441) [address] [id number] 05:44:00 Test Item Value Reference Range Interpretation Comments ACTIVATED CLOTTING TIME 604 sec TEST ED AT [place] [address] ([facility]) (test code = [place] 441) [address] [id number] 05:44:00 Test Item Value Reference Range Interpretation Comments ACTIVATED CLOTTING TIME 444 sec TEST ED AT [place] [address] ([facility]) (test code = SADA Chatterjee [place] 441) [address] POCT-GLUCOSE [id number] 04:45:00 Test Item Value Reference Range Interpretation Comments POC-GLUCOSE METER 122 mg/dL 70-110 H TESTED AT [place] [address] ([facility]) (test code = SADA Chatterjee [place] 1538) [address] RAD, CHEST, 1 VIEW, NON [id number] 04:40:00while patient is intubated or has chest [...] MDReport Verified Date/Time: 11/30/2017 04:40:05 Reading Location: [address] Reading Room CBC W/PLT COUNT & AUTO [id number] 03:49:00 Test Item Value Reference Range Interpretation [...] (BEAKER) (test code = 2801) BASIC METABOLIC [id number] 03:49:00 Test Item Value Reference Range Interpretation [...] m DATA TO CALCULA TE ESTIMATED GFR. [id number] 03:42:00 Test Item Value Reference Range Interpretation Comments MAGNESIUM (BEAKER) (test code = 1.9 mg/dL 1.6-2.6 627) POCT-GLUCOSE [id number] 03:04:00 Test Item Value Reference Range Interpretation Comments POC-GLUCOSE METER 143 mg/dL 70-110 H TESTED AT [place] [address] ([facility]) (test code = [facility] Sen [facility] 1538) [address] POCT-GLUCOSE [id number] 02:04:00 Test Item Value Reference Range Interpretation Comments POC-GLUCOSE METER 146 mg/dL 70-110 H TESTED AT [place] [address] ([facility]) (test code = [facility] Sen [facility] 1538) [address] POCT-GLUCOSE [id number] 01:04:00 Test Item Value Reference Range Interpretation Comments POC-GLUCOSE METER 203 mg/dL 70-110 H TESTED AT [place] [address] ([facility]) (test code = [facility] Sen [facility] 1538) [address] [id number] 01:03:00 Test Item Value Reference Range Interpretation Comments POTASSIUM (BEAKER) (test code = 4.3 meq/L 3.5-5.1 379) [id number] 01:03:00 Test Item Value Reference Range Interpretation Comments MAGNESIUM (BEAKER) (test code = 2.1 mg/dL 1.6-2.6 627) CALCIUM, [id number] 00:29:00 Test Item Value Reference Range Interpretation Comments CALCIUM IONIZED (BEAKER) (test 1.08 mmol/L 1.12-1.27 L code = 698) PH, BLOOD (BEAKER) (test code = 7.39 1810) POCT-GLUCOSE [id number] 00:09:00 Test Item Value Reference Range Interpretation Comments POC-GLUCOSE METER 214 mg/dL 70-110 H TESTED AT [place] [address] (BEAKER) (test code = [facility] [place] 1538) [address] POCT-GLUCOSE [id number] 22:51:00 Test Item Value Reference Range Interpretation Comments POC-GLUCOSE METER 179 mg/dL 70-110 H TESTED AT [place] [address] (BEAKER) (test code = [facility] [place] 1538) [address] POCT-GLUCOSE [id number] 22:13:00 Test Item Value Reference Range Interpretation Comments POC-GLUCOSE METER 206 mg/dL 70-110 H TESTED AT [place] [address] (BEAKER) (test code = [facility] 1538) 79015 BLOOD GAS, [id number] 21:08:00 Test Item Value Reference Range Interpretation [...] = 1819) 36.0 % Post extubation ABGPOCT-GLUCOSE [id number] 21:03:00 Test Item Value Reference Range Interpretation Comments POC-GLUCOSE METER 197 mg/dL 70-110 H TESTED AT [place] [address] (BEAKER) (test code = [facility] [place] 1538) [address] POCT-GLUCOSE [id number] 20:47:00 Test Item Value Reference Range Interpretation Comments POC-GLUCOSE METER 197 mg/dL 70-110 H TESTED AT [place] [address] (BEAKER) (test code = SADA Chatterjee [place] 1538) [address] [id number] 20:10:00 Test Item Value Reference Range Interpretation Comments MAGNESIUM (BEAKER) (test code = 2.3 mg/dL 1.6-2.6 627) Check Serum Magnesium level 2 hours after IV magnesium replacement.POCT-GLUCOSE [id number] 20:02:00 Test Item Value Reference Range Interpretation Comments POC-GLUCOSE METER 234 mg/dL 70-110 H TESTED AT [place] [address] (BEAKER) (test code = SADA Chatterjee [facility] 1538) [address]248 BLOOD GAS, [id number] 19:57:00 Test Item Value Reference Range Interpretation [...] (test code = 1819) 40.0 % POCT-GLUCOSE [id number] 18:44:00 Test Item Value Reference Range Interpretation Comments POC-GLUCOSE METER 209 mg/dL 70-110 H TESTED AT [place] [address] (BEAKER) (test code = SADA Chatterjee [facility] 1538) [id number] BASIC METABOLIC [id number] 16:13:00 Test Item Value Reference Range Interpretation [...] ESTIMATED GFR. RAD, CHEST, 1 VIEW, NON [id number] 16:13:00Reason for exam:->intubated, chest tubesShould this be performed at the bedside?->YesFINAL REPORT TECHNIQUE: Frontal chest radiograph dated 11/29/2017. CLINICAL HIST ORY: Intubated, chest tubes COMPARISON STUDY: Chest radiograph performed earlier the same day. IMPRESSION:Endotracheal tube is approximately 5 cm above the lore. Enteric tube is seen with the tip in the region of the gastric fundus. Right internal jugular venous catheter tip projects over the regionof the superior vena cava. Left-sided chest tube and mediastinal drains are in. Small amount of leftlung base atelectasis is present. No pleural effusion or pneumothorax. Cardiomediastinal silhouette is normal in size. No pulmonary edema. Midline sternotomy wires are intact and well aligned. Degenerative changes are seen in the spine. Signed: Leticia Mainep[place] Verified Date/Time: 11/29/2017 16:13:26 Reading Location: [facility] Radiology Reading Room APTT 2017-11-29 16:12:00 Test Item Value Reference Range Interpretation Comments PARTIAL THROMBOPLASTIN TIME 31.4 seconds 22.5-36.0 (BEAKER) (test code = 760) PROTHROMBIN [id number] 16:11:00 Test Item Value Reference Range Interpretation Comments PROTIME (BEAKER) (test code = 17.6 seconds 11.7-14.7 H 759) INR (BEAKER) (test code = 370) 1.5 <=5.9 RECOMMENDED COUMADIN/WARFARIN INR THERAPY RANGESSTANDARD DOSE: 2.0 - 3.0 Includes: PROPHYLAXIS for venous thrombosis, systemic embolization; TREATMENT for venous thrombosis and/or pulmonary embolus.HIGH RISK: Target INR is 2.5-3.5 for patients with mechanical heart valves.[id number] 16:11:00 Test Item Value Reference Range Interpretation Comments MAGNESIUM (BEAKER) 1.7 mg/dL 1.6-2.6 Specimen slightly (test code = 627) hemolyzed LACTIC ACID, ARTERIAL, WHOLE [id number] 16:06:00 Test Item Value Reference Range Interpretation Comments LACTATE BLOOD 1.2 mmol/L 0.5-2.2 Specimen sligh tly ARTERIAL (2) (BEAKER) hemoly zed (test code = 2874) Effective 02/18/2016: Units/Reference Range ChangeNew: 0.5-2.2 mmol/L Previous: 5- 20 mg/dLCBC W/PLT COUNT & AUTO [id number] 16:02:00 Test Item Value Reference Range Interpretation [...] (BEAKER) (test code = 2801) OXYGEN SATURATION, [id number] 15:54:00 Test Item Value Reference Range Interpretation Comments O2 SATURATION (MEASURED) (BEAKER) 64.9 % (test code = 1455) From distal port of IJ central venous catheterSODIUM NA-STAT [id number] 15:54:00 Test Item Value Reference Range Interpretation Comments SODIUM (BEAKER) (test code = 381) 138 meq/L 135-148 POTASSIUM-STAT [id number] 15:54:00 Test Item Value Reference Range Interpretation Comments POTASSIUM (BEAKER) (test code = 4.2 meq/L 3.6-5.5 379) BLOOD GAS, [id number] 15:54:00 Test Item Value Reference Range Interpretation [...] (test code = 1819) 60.0 % CALCIUM, [id number] 15:54:00 Test Item Value Reference Range Interpretation Comments CALCIUM IONIZED (BEAKER) (test 1.06 mmol/L 1.12-1.27 L code = 698) PH, BLOOD (BEAKER) (test code = 7.31 1810) GLUCOSE-STAT [id number] 15:54:00 Test Item Value Reference Range Interpretation Comments GLUCOSE RANDOM (BEAKER) (test code 173 mg/dL 70-110 H = 652) HGB/HCT (H&H) - STAT [id number] 15:54:00 Test Item Value Reference Range Interpretation [...] MM 55.0-65.0 (test code = 1413) PLATELET [id number] 14:50:00 Test Item Value Reference Range Interpretation Comments PLATELET COUNT (BEAKER) (test code 98 K/CU MM 150-450 L = 756) [id number] 14:27:00 Test Item Value Reference Range Interpretation Comments FIBRINOGEN LEVEL (BEAKER) (test 176 mg/dl 225-434 L code = 658) PROTHROMBIN [id number] 14:14:00 Test Item Value Reference Range Interpretation Comments PROTIME (BEAKER) (test code = 20.7 seconds 11.7-14.7 H 759) INR (BEAKER) (test code = 370) 1.8 <=5.9 RECOMMENDED COUMADIN/WARFARIN INR THERAPY RANGESSTANDARD DOSE: 2.0 - 3.0 Includes: PROPHYLAXIS for venous thrombosis, systemic embolization; TREATMENT for venous thrombosis and/or pulmonary embolus.HIGH RISK: Target INR is 2.5-3.5 for patients with mechanical heart valves.[id number] 14:14:00 Test Item Value Reference Range Interpretation Comments PARTIAL THROMBOPLASTIN TIME 30.2 seconds 22.5-36.0 (BEAKER) (test code = 760) CALCIUM, [id number] 13:55:00 Test Item Value Reference Range Interpretation Comments CALCIUM IONIZED (BEAKER) (test 1.13 mmol/L 1.12-1.27 code = 698) PH, BLOOD (BEAKER) (test code = 7.30 1810) BLOOD GAS, [id number] 13:55:00 Test Item Value Reference Range Interpretation [...] (test code = 1819) 100.0 % GLUCOSE-STAT [id number] 13:55:00 Test Item Value Reference Range Interpretation Comments GLUCOSE RANDOM (BEAKER) (test code 201 mg/dL 70-110 H = 652) HGB/HCT (H&H) - STAT [id number] 13:55:00 Test Item Value Reference Range Interpretation Comments HEMOGLOBIN (BEAKER) (test code = 9.7 g/dL 13.0-16.8 L 410) HEMATOCRIT (BEAKER) (test code = 29.0 % 40.0-50.0 L 411) SODIUM NA-STAT [id number] 13:54:00 Test Item Value Reference Range Interpretation Comments SODIUM (BEAKER) (test code = 381) 137 meq/L 135-148 POTASSIUM-STAT [id number] 13:54:00 Test Item Value Reference Range Interpretation Comments POTASSIUM (BEAKER) (test code = 3.9 meq/L 3.6-5.5 379) BLOOD GAS, [id number] 13:22:00 Test Item Value Reference Range Interpretation [...] (test code = 1819) 80.0 % GLUCOSE-STAT [id number] 13:22:00 Test Item Value Reference Range Interpretation Comments GLUCOSE RANDOM (BEAKER) (test code 191 mg/dL 70-110 H = 652) HGB/HCT (H&H) - STAT [id number] 13:22:00 Test Item Value Reference Range Interpretation Comments HEMOGLOBIN (BEAKER) (test code = 9.3 g/dL 13.0-16.8 L 410) HEMATOCRIT (BEAKER) (test code = 27.0 % 40.0-50.0 L 411) SODIUM NA-STAT [id number] 13:18:00 Test Item Value Reference Range Interpretation Comments SODIUM (BEAKER) (test code = 381) 136 meq/L 135-148 POTASSIUM-STAT [id number] 13:18:00 Test Item Value Reference Range Interpretation Comments POTASSIUM (BEAKER) (test code = 4.6 meq/L 3.6-5.5 379) BLOOD GAS, [id number] 12:39:00 Test Item Value Reference Range Interpretation [...] code = 1819) 60.0 % SODIUM NA-STAT [id number] 12:39:00 Test Item Value Reference Range Interpretation Comments SODIUM (BEAKER) (test code = 381) 134 meq/L 135-148 L GLUCOSE-STAT [id number] 12:39:00 Test Item Value Reference Range Interpretation Comments GLUCOSE RANDOM (BEAKER) (test code 166 mg/dL 70-110 H = 652) HGB/HCT (H&H) - STAT [id number] 12:39:00 Test Item Value Reference Range Interpretation Comments HEMOGLOBIN (BEAKER) (test code = 9.9 g/dL 13.0-16.8 L 410) HEMATOCRIT (BEAKER) (test code = 29.0 % 40.0-50.0 L 411) POTASSIUM-STAT [id number] 12:38:00 Test Item Value Reference Range Interpretation Comments POTASSIUM (BEAKER) (test code = 4.4 meq/L 3.6-5.5 379) SODIUM NA-STAT [id number] 11:22:00 Test Item Value Reference Range Interpretation Comments SODIUM (BEAKER) (test code = 381) 140 meq/L 135-148 POTASSIUM-STAT [id number] 11:22:00 Test Item Value Reference Range Interpretation Comments POTASSIUM (BEAKER) (test code = 4.0 meq/L 3.6-5.5 379) HGB/HCT (H&H) - STAT [id number] 11:22:00 Test Item Value Reference Range Interpretation Comments HEMOGLOBIN (BEAKER) (test code = 14.5 g/dL 13.0-16.8 410) HEMATOCRIT (BEAKER) (test code = 43.0 % 40.0-50.0 411) BLOOD GAS, [id number] 11:22:00 Test Item Value Reference Range Interpretation [...] (test code = 1819) 100.0 % GLUCOSE-STAT [id number] 11:22:00 Test Item Value Reference Range Interpretation Comments GLUCOSE RANDOM (BEAKER) (test code 112 mg/dL 70-110 H = 652) PLATELET AGGREGATION: FUNCTION [id number] 09:52:00 Test Item Value Reference Range Interpretation Comments WEAK ADP 68 % 60-91 RESULT(BEAKER) (test code = 2135) PLATELET FUNCTION 60-100% indicates SCREEN INTERP (BEAKER) normal platelet (test code = 2173) function [id number] Batsheva Llamas MD (BEAKER) (test code = (electronic signature) 3172) PLATELET COUNT AGG 176 K/CU MM 150-450 (BEAKER) (test code = 2656) RAD, CHEST, 1 VIEW, NON [id number] 08:51:00Reason for exam:->preop for CV surgeryFINAL REPORT [...] MDReport Verified Date/Time: 11/29/2017 08:51:39 Reading Location: [facility] Women Electronically signed by: ULISES KATHLEEN M.D. on11/29/2017 08:51 AM POCT-GLUCOSE [id number] 07:42:00 Test Item Value Reference Range Interpretation Comments POC-GLUCOSE METER 105 mg/dL 70-110 TESTED AT [facility] [address] (BEAKER) (test code = [place]38) [id number] COMPREHENSIVE METABOLIC [id number] 07:03:00 Test Item Value Reference Range Interpretation [...] O CALCULATE ESTIM ATED GFR. BASIC METABOLIC [id number] 07:03:00 Test Item Value Reference Range Interpretation [...] m DATA TO CALCULA TE ESTIMATED GFR. [id number] 06:54:00 Test Item Value Reference Range Interpretation Comments MAGNESIUM (BEAKER) (test code = 1.9 mg/dL 1.6-2.6 627) PROTHROMBIN [id number] 06:46:00 Test Item Value Reference Range Interpretation Comments PROTIME (BEAKER) (test code = 13.4 seconds 11.7-14.7 759) INR (BEAKER) (test code = 370) 1.0 <=5.9 RECOMMENDED COUMADIN/WARFARIN INR THERAPY RANGESSTANDARD DOSE: 2.0 - 3.0 Includes: PROPHYLAXIS for venous thrombosis, systemic embolization; TREATMENT for venous thrombosis and/or pulmonary embolus.HIGH RISK: Target INR is 2.5-3.5 for patients with mechanical heart valves.CBC W/PLT COUNT & AUTO [id number] 06:35:00 Test Item Value Reference Range Interpretation [...] PERCENT (BEAKER) (test code = 2801) POCT-GLUCOSE [id number] 21:53:00 Test Item Value Reference Range Interpretation Comments POC-GLUCOSE METER 131 mg/dL 70-110 H TESTED AT [facility] [address] ([facility]) (test code = [place] 1538) [address] HEMOGLOBIN [id number] 20:50:00 Test Item Value Reference Range Interpretation Comments HEMOGLOBIN A1C (BEAKER) (test code = 6.6 % 4.3-6.1 H 368) POCT-GLUCOSE [id number] 19:15:00 Test Item Value Reference Range Interpretation Comments POC-GLUCOSE METER 134 mg/dL 70-110 H TESTED AT [facility] [address] ([facility]) (test code = [place] 1538) [id number] 18:35:00 Test Item Value Reference Range Interpretation Comments PARTIAL THROMBOPLASTIN TIME 32.4 seconds 22.5-36.0 (AKER) (test code = 760) [id number] 18:34:00 Test Item Value Reference Range Interpretation Comments FIBRINOGEN LEVEL (BEAKER) (test 372 mg/dl 225-434 code = 658) TSH/FREE T4 IF [id number] 16:25:00 Test Item Value Reference Range Interpretation Comments THYROID STIMULATING HORMONE 2.53 uIU/mL 0.35-4.94 (BEAKER) (test code = 772) BASIC METABOLIC [id number] 16:10:00 Test Item Value Reference Range Interpretation [...] m DATA TO CALCULA TE ESTIMATED GFR. [id number] 16:09:00 Test Item Value Reference Range Interpretation Comments PHOSPHORUS (BEAKER) (test code = 3.0 mg/dL 2.3-4.7 604) [id number] 16:09:00 Test Item Value Reference Range Interpretation Comments MAGNESIUM (BEAKER) (test code = 2.0 mg/dL 1.6-2.6 627) LIPID [id number] 16:09:00 Test Item Value Reference Range Interpretation Comments TRIGLYCERIDES (BEAKER) (test code = 263 mg/dL 540) CHOLESTEROL (BEAKER) (test code = 143 mg/dL 631) HDL CHOLESTEROL (BEAKER) (test code 32 mg/dL = 976) LDL CHOLESTEROL CALCULATED (BEAKER) 58 mg/dL (test code = 633) Triglyceride Reference Range: Low Risk <150 Borderline 150-199 High Risk 200- 499 Very High Risk >=500Cholesterol Reference Range: Low Risk <200 Borderline 200-239 High Risk >240HDL Cholesterol Reference Range: Low Risk >=60 High Risk <40LDL Cholesterol Reference Range: Optimal <100 Near Optimal 100-129 Borderline 130-159 High 160-189 Very High >=190HEPATIC FUNCTION [id number] 16:09:00 Test Item Value Reference Range Interpretation [...] (test code = 22 U/L 6-55 347) [id number] 16:04:00 Test Item Value Reference Range Interpretation Comments PROTIME (BEAKER) (test code = 14.5 seconds 11.7-14.7 759) INR (BEAKER) (test code = 370) 1.1 <=5.9 PARTIAL THROMBOPLASTIN TIME 29.6 seconds 22.5-36.0 (BEAKER) (test code = 760) RECOMMENDED COUMADIN/WARFARIN INR THERAPY RANGESSTANDARD DOSE: 2.0 - 3.0 Includes: PROPHYLAXIS for venous thrombosis, systemic embolization; TREATMENT for venous thrombosis and/or pulmonary embolus.HIGH RISK: Target INR is 2.5-3.5 for patients with mechanical heart valves.
[2022-08-11 15:40] LABS: Absolute Lymphocytes (CBC) 1.7 K/uL (0.7-4.9); Hematocrit 46.3 % (39.6-49.0); Lymphocytes % 23.7 % (15.3-44.8); MPV 8.9 fL (7.6-11.3); RBC Red Blood Cell Count 5.26 M/uL (4.33-5.43)
[2022-08-11 16:05] LABS: Potassium 3.9 mmol/L (3.5-5.1); Troponin High Sensitivity 14.3 pg/mL (<58.9)
[2022-08-11 16:14] LABS: SARS-CoV-2 Antigen Rapid Res Negative (Negative)
[2022-08-11] MEDS ORDERED: ACETAMINOPHEN 500 MG TAB ONE (16:29)
--- NOTE | 2022-08-11 16:30 | RAD REPORT ---
EXAM DESCRIPTION: RAD - Chest Single View - 08/11/2022 4:17 pm CLINICAL HISTORY: CHEST PAIN COMPARISON: Portable 11/30/2021 TECHNIQUE: AP portable chest image was obtained 08/11/2022 4:17 pm . FINDINGS: No new mass or consolidation. Interstitial markings are prominent similar to the prior minna dy. CABG surgical changes are noted. Heart size is prominent and stable. Central vasculature is mildl y prominent. No measurable pleural effusion and no pneumothorax. No acute bony abnormality seen. No a cute aortic findings suspected. IMPRESSION: No focal lung parenchymal abnormality seen. Chest findings are not significantly different from November imaging but could still represent a mild failure or volume overload.
[2022-08-11] MEDS ORDERED: HYDROCODONE/APAP 10/325 TAB ONE (16:36)
--- NOTE | 2022-08-11 18:33 | ER ---
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 Coronavirus screen: At this time, the client does not indicate any symptoms associated with coronavirus-19. Ebola Screen: No symptoms or risks identified at this time. Initial Sepsis Screen: Does the patient meet any 2 criteria? No. Patient's initial sepsis screen is negative. Does the patient have a suspected source of infection? No. Patient's initial sepsis screen is negative. Risk Assessment: Do you want to hurt yourself or someone else? Patient reports no desire to harm self or others. Onset of symptoms was August 11, 2022 at 15:10. 15:08 Method Of Arrival: Wheelchair ld1 15:08 Acuity: KEVIN 3 ld1 Triage Assessment: 15:10 General: Appears in no apparent distress. uncomfortable, Behavior is calm, cooperative, ld1 appropriate for age. Pain: Complains of pain in chest Pain does not radiate. Pain currently is 8 out of 10 on a pain scale. Quality of pain is described as pressure, Pain began suddenly, Is intermittent. EENT: No signs and/or symptoms were reported regarding the EENT system. Neuro: Level of Consciousness is awake, alert, obeys commands, Oriented to person, place, time, situation, Appropriate for age. Cardiovascular: Capillary refill < 3 seconds Patient's skin is warm and dry. Cardiovascular: Reports chest pain, shortness of breath. Respiratory: Airway is patent Respiratory effort is even, unlabored. GI: Abdomen is round distended, non-distended. : No signs and/or symptoms were reported regarding the genitourinary system. Derm: No signs and/or symptoms reported regarding the dermatologic system. Musculoskeletal: No signs and/or symptoms reported regarding the musculoskeletal system. Historical: - Allergies: 15:10 NKA; ld1 - PMHx: 15:10 Diabetes - NIDDM; Chronic pain; Hypertension; Myocardial infarction; CABG; ld1 - Immunization history:: Adult Immunizations up to date, Client reports receiving the 2nd dose of the Covid vaccine. - Social history:: Smoking status: Patient denies any tobacco usage or history of. Patient/guardian denies using alcohol. Screenin:06 Abuse screen: Denies threats or abuse. Denies injuries from another. Nutritional eh3 screening: No deficits noted. Tuberculosis screening: No symptoms or risk factors identified. Fall Risk IV access (20 points). Gait- Weak (10 pts.). Total Robert Fall Scale indicates Low Risk Score (25-44 pts). Fall prevention measures have been instituted. Side Rails Up X 2 Placed close to Nursing Station Frequent Obs/Assesments occuring Family Present and informed to notify staff if they need to leave bedside As available Patient and Family Educated on Fall Prevention Program and strategies. Assessment: 15:27 General: Appears distressed, uncomfortable, Behavior is cooperative, appropriate for eh3 age, anxious. Pain: Complains of pain in chest. Pain: Complains of pain in anterior aspect of left upper chest and left breast Pain radiates to left arm Pain currently is 9 out of 10 on a pain scale. Quality of pain is described as sharp. Pain: Pain began 1 day ago. Is intermittent, Alleviated by nothing. Neuro: Level of Consciousness is awake, alert, obeys commands, Oriented to person, place, time, situation. Cardiovascular: Capillary refill < 3 seconds Clubbing of nail beds is absent JVD is absent Patient's skin is warm and dry. Respiratory: Airway is patent Respiratory effort is even, labored, Respiratory pattern is regular, symmetrical. GI: No signs and/or symptoms were reported involving the gastrointestinal system. Abdomen is round distended. : No signs and/or symptoms were reported regarding the genitourinary system. Derm: No deficits noted. No signs and/or symptoms reported regarding the dermatologic system. Musculoskeletal: No signs and/or symptoms reported regarding the musculoskeletal system. Circulation, motion, and sensation intact. Range of motion: intact in all extremities. 16:05 Reassessment: Patient and/or family updated on plan of care and expected duration. Pain eh3 level reassessed. Patient is alert, oriented x 3, equal unlabored respirations, skin warm/dry/pink. 17:00 Reassessment: Patient and/or family updated on plan of care and expected duration. Pain eh3 level reassessed. Patient is alert, oriented x 3, equal unlabored respirations, skin warm/dry/pink. 18:00 Reassessment: Patient and/or family updated on plan of care and expected duration. Pain eh3 level reassessed. Patient is alert, oriented x 3, equal unlabored respirations, skin warm/dry/pink. 19:00 Reassessment: Patient and/or family updated on plan of care and expected duration. Pain eh3 level reassessed. Patient is alert, oriented x 3, equal unlabored respirations, skin warm/dry/pink. 19:45 Neuro: [place] Agitation-Sedation Scale (RASS): 0 - Alert and Calm. eh3 20:00 Reassessment: Patient and/or family updated on plan of care and expected duration. Pain eh3 level reassessed. Patient is alert, oriented x 3, equal unlabored respirations, skin warm/dry/pink. Patient states symptoms have improved. 20:30 Neuro: [place] Agitation-Sedation Scale (RASS): 0 - Alert and Calm. eh3 21:00 Reassessment: Patient and/or family updated on plan of care and expected duration. Pain eh3 level reassessed. Patient is alert, oriented x 3, equal unlabored respirations, skin warm/dry/pink. 22:00 Reassessment: Patient and/or family updated on plan of care and expected duration. Pain eh3 level reassessed. Patient is alert, oriented x 3, equal unlabored respirations, skin warm/dry/pink. 23:00 Reassessment: Patient and/or family updated on plan of care and expected duration. Pain eh3 level reassessed. Patient is alert, oriented x 3, equal unlabored respirations, skin warm/dry/pink. Vital Signs: 15:06 BP 134 / 98; Pulse 101; Resp 22; Pulse Ox 96% on R/A; eh3 15:08 BP 134 / 98; Pulse 98; Resp 18; Temp 97.7(O); Pulse Ox 98% on R/A; Weight 136.08 kg; ld1 Height 6 ft. 1 in. (185.42 cm); Pain 8/10; 16:05 BP 130 / 94; Pulse 95; Resp 30; Pulse Ox 96% on R/A; eh3 17:00 BP 146 / 100; Pulse 96; Resp 25; Pulse Ox 96% on R/A; eh3 18:00 BP 120 / 85; Pulse 88; Resp 22; Pulse Ox 95% on R/A; eh3 19:00 BP 111 / 74; Pulse 94; Resp 25; Pulse Ox 96% on R/A; eh3 20:00 BP 122 / 64; Pulse 93; Resp 22; Pulse Ox 94% on R/A; eh3 21:00 BP 112 / 70; Pulse 92; Resp 20; Pulse Ox 92% on R/A; eh3 22:00 BP 117 / 70; Pulse 89; Resp 19; Pulse Ox 93% on R/A; eh3 23:00 BP 111 / 74; Pulse 85; Resp 19; Pulse Ox 93% on R/A; eh3 08/12 00:00 BP 126 / 89; Pulse 82; Resp 16; Pulse Ox 93% on R/A; eh3 08/11 15:08 Body Mass Index 39.58 (136.08 kg, 185.42 cm) ld1 Vitals: 08/11 15:06 Cardiac Rhythm Assessment Sinus rhythm. eh3 ED Course: 14:55 Patient arrived in ED. rg4 15:02 Moy Ortega DO is Attending Physician. ms3 15:06 Patient has correct armband on for positive identification. Placed in gown. Bed in low eh3 position. Call light in reach. Side rails up X2. Client placed on continuous cardiac and pulse oximetry monitoring. NIBP monitoring applied. 15:06 Patient maintains SpO2 saturation greater than 95% on room air. eh3 15:10 Triage completed. ld1 15:10 Arm band placed on right wrist. EKG completed in triage. Results shown to MD. ld1 15:25 Helene Mojica, RN is Primary Nurse. eh3 15:32 Inserted saline lock: 20 gauge in right forearm, using aseptic technique. Blood zm collected. 15:32 Basic Metabolic Panel Sent. zm 15:32 CBC with Diff Sent. zm 15:32 Troponin HS Sent. zm 15:32 NT PRO-BNP Sent. zm 15:57 SARS RAPID Sent. eh3 16:19 XRAY Chest (1 view) In Process Unspecified. EDMS 18:32 James Rg MD is Hospitalizing Provider. ms3 19:53 CT Chest For PE Angio In Process Unspecified. EDMS 19:53 Abdomen In Process Unspecified. EDMS 21:00 Diet: Patient given snack. Patient given water. Tolerated well. eh3 23:05 No provider procedures requiring assistance completed. Patient admitted, IV remains in eh3 place. 08/12 03:39 Primary Nurse role handed off by Helene Mojica, RN vc1 Administered Medications: 08/11 16:33 Not Given (Duplicate Order; Pt stated, "I take [place] 10/325 at home for pain. That 3 Tylenol isn't going to touch this [pain]"): Tylenol 1000 mg PO once 16:35 Drug: [place] (HYDROcodone-acetaminophen) 10 mg-325 mg 1 tabs Route: PO; 3 18:48 Follow up: Response: Pain is decreased 3 19:45 Drug: Dilaudid (HYDROmorphone) 1 mg Route: IVP; Site: right antecubital; eh3 20:37 Follow up: Response: Pain is decreased [facility] 08/12 00:18 Drug: Dilaudid (HYDROmorphone) 1 mg Route: IVP; Site: right antecubital; eh3 06:45 Follow up: Response: No adverse reaction; Marked relief of symptoms 3 05:08 Drug: Dilaudid (HYDROmorphone) 1 mg Route: IVP; Site: right forearm; 3 05:31 Follow up: Response: No adverse reaction; Marked relief of symptoms; Pain is decreased 3 Medication: 08/11 23:05 VIS not applicable for this client. [facility] Outcome: 18:33 Decision to Hospitalize by Provider. ms3 23:05 Admitted to ER Hold. Please see [facility] for further documentation. 3 23:05 Condition: stable 23:05 Instructed on the need for admit. 08/12 10:56 Patient left the ED. iw Signatures: Dispatcher [employer] EDMS Urszula Pedraza RN RN iw Garcia, Rubi rg4 Carline Stovall RN RN lg3 Moy Ortega DO DO ms3 Destini Fields RN RN ld1 Malaika Kunz RN RN vc1 Helene Mojica, TIARRA MAYEN 3 Sally Redmond Corrections: (The following items were deleted from the chart) 08/11 16:22 15:27 Pain: Is continuous, Alleviated by nothing. eh3 eh3 16:25 16:23 Reassessment: Patient and/or family updated on plan of care and expected eh3 duration. Pain level reassessed. Patient is alert, oriented x 3, equal unlabored respirations, skin warm/dry/pink. eh3
--- NOTE | 2022-08-11 18:34 | EDPHYS ---
Physician Documentation [facility] Name: Armond Beltrán Age: 67 yrs Sex: Male : 1955 Arrival Date: 08/11/2022 Time: 14:55 Bed 15 Private MD: ED Physician Moy Ortega HPI: 08/11 15:28 This 67 yrs old Male presents to ER via Wheelchair with complaints of Chest ms3 Pain, Shortness Of Breath. 15:28 The patient or guardian reports chest pain that is located primarily in the substernal ms3 area. Onset: yesterday. The pain does not radiate. Associated signs and symptoms: Pertinent positives: diaphoresis, shortness of breath, Pertinent negatives: abdominal pain, nausea, vomiting. The chest pain is described as a pressure. Duration: The patient or guardian reports a single episode, Waxing and waning. Modifying factors: The symptoms are alleviated by nothing. the symptoms are aggravated by nothing. Severity of pain: At its worst the pain was moderate in the emergency department the pain is unchanged. Historical: - Allergies: 15:10 NKA; ld1 - PMHx: 15:10 Diabetes - NIDDM; Chronic pain; Hypertension; Myocardial infarction; CABG; ld1 - Immunization history:: Adult Immunizations up to date, Client reports receiving the 2nd dose of the Covid vaccine. - Social history:: Smoking status: Patient denies any tobacco usage or history of. Patient/guardian denies using alcohol. ROS: 15:28 Constitutional: Negative for fever, and chills. Neck: Negative for injury, pain, and ms3 swelling, Respiratory: Negative for shortness of breath, cough, wheezing, and pleuritic chest pain. 15:28 MS/Extremity: Negative for injury and deformity, Skin: Negative for injury, rash, and discoloration. 15:28 Cardiovascular: Positive for chest pain. 15:28 All other systems are negative. Exam: 15:15 ECG was reviewed by the Attending Physician. ms3 15:28 Constitutional: This is a well developed, well nourished patient who is awake, alert, ms3 and in no acute distress. Head/Face: Normocephalic, atraumatic. Neck: Trachea midline, no cervical lymphadenopathy. Supple, full range of motion without nuchal rigidity, or vertebral point tenderness. No Meningismus. Chest/axilla: Normal chest wall appearance and motion. Nontender with no deformity. Cardiovascular: Regular rate and rhythm with a normal S1 and S2. No gallops, murmurs, or rubs. Normal PMI, no JVD. No pulse deficits. Respiratory: Lungs have equal breath sounds bilaterally, clear to auscultation and percussion. No rales, rhonchi or wheezes noted. No increased work of breathing, no retractions or nasal flaring. Abdomen/GI: Soft, non-tender, with normal bowel sounds. No distension or tympany. No guarding or rebound. No evidence of tenderness throughout. Skin: Warm, dry with normal turgor. Normal color with no rashes, no lesions, and no evidence of cellulitis. MS/ Extremity: Pulses equal, no cyanosis. Neurovascular intact. Full, normal range of motion. Vital Signs: 15:06 BP 134 / 98; Pulse 101; Resp 22; Pulse Ox 96% on R/A; eh3 15:08 BP 134 / 98; Pulse 98; Resp 18; Temp 97.7(O); Pulse Ox 98% on R/A; Weight 136.08 kg; ld1 Height 6 ft. 1 in. (185.42 cm); Pain 8/10; 16:05 BP 130 / 94; Pulse 95; Resp 30; Pulse Ox 96% on R/A; eh3 17:00 BP 146 / 100; Pulse 96; Resp 25; Pulse Ox 96% on R/A; eh3 18:00 BP 120 / 85; Pulse 88; Resp 22; Pulse Ox 95% on R/A; eh3 19:00 BP 111 / 74; Pulse 94; Resp 25; Pulse Ox 96% on R/A; eh3 20:00 BP 122 / 64; Pulse 93; Resp 22; Pulse Ox 94% on R/A; eh3 21:00 BP 112 / 70; Pulse 92; Resp 20; Pulse Ox 92% on R/A; eh3 22:00 BP 117 / 70; Pulse 89; Resp 19; Pulse Ox 93% on R/A; eh3 23:00 BP 111 / 74; Pulse 85; Resp 19; Pulse Ox 93% on R/A; eh3 08/12 00:00 BP 126 / 89; Pulse 82; Resp 16; Pulse Ox 93% on R/A; eh3 08/11 15:08 Body Mass Index 39.58 (136.08 kg, 185.42 cm) ld1 MDM: 08/11 15:25 Patient medically screened. ms3 15:28 Differential diagnosis: abnormal EKG, acute myocardial infarction, coronary artery ms3 disease gastritis, gastroesophageal reflux disease (GERD). 16:32 ED course: Patient states he takes [place] 10/325 mg at home and Tylenol will not work ms3 for his headache.. 20:58 HEART Score: History: Slightly Suspicious (0), ECG: Non specific repolarization ms3 disturbance / LBTB / PM (1), Age: > or = 65 years (2), Risk Factors: > or = 3 Risk factors for atherosclerotic disease (2), [Hypercholesterolemia] [Hypertension] [Obesity] Troponin: < or = 1 x Normal Limit (0), Total Score = 5. Data reviewed: vital signs, nurses notes, lab test result(s), EKG, radiologic studies, and as a result, I will admit patient. Counseling: I had a detailed discussion with the patient and/or guardian regarding: the historical points, exam findings, and any diagnostic results supporting the discharge/admit diagnosis, the presence of at least one elevated blood pressure reading (>120/80) during this emergency department visit, radiology results, the need for further work-up and treatment in the hospital. ED course: Discussed case with Dr. Rg. He would like a CTA of the chest and CT of the abdomen and pelvis with IV contrast performed.. 08/11 15:11 Order name: Basic Metabolic Panel; Complete Time: 16:32 ld1 08/11 15:11 Order name: CBC with Diff; Complete Time: 16:32 ld1 08/11 15:11 Order name: Troponin HS; Complete Time: 16:32 ld1 08/11 15:27 Order name: NT PRO-BNP; Complete Time: 20:58 ms3 08/11 15:37 Order name: SARS RAPID; Complete Time: 16:32 ms3 08/12 02:41 Order name: CBC with Automated Diff EDMS 08/11 15:11 Order name: XRAY Chest (1 view); Complete Time: 16:32 ld1 08/11 18:31 Order name: CT Chest For PE Angio; Complete Time: 20:58 ms3 08/11 18:40 Order name: CT Abd/Pelvis - IV Contrast Only ms3 08/11 18:44 Order name: Abdomen ; Complete Time: 20:58 EDMS 08/12 02:49 Order name: Basic Metabolic Panel EDMS 08/12 02:49 Order name: Troponin High Sensitivity EDMS 08/11 15:11 Order name: EKG; Complete Time: 15:12 ld1 08/11 15:11 Order name: Cardiac monitoring; Complete Time: 15:11 ld1 08/11 15:11 Order name: EKG - Nurse/Tech; Complete Time: 15:18 ld1 08/11 15:11 Order name: IV Saline Lock; Complete Time: 15:32 ld1 08/11 15:11 Order name: Labs collected and sent; Complete Time: 15:32 ld1 08/11 15:11 Order name: O2 Per Protocol; Complete Time: 15:12 ld1 08/11 15:11 Order name: O2 Sat Monitoring; Complete Time: 15:12 ld1 EC:15 Rate is 97 beats/min. Rhythm is regular. Right axis deviation noted. MO interval is ms3 normal. QRS interval is prolonged. Clinical impression: RBBB. Interpreted by me. Reviewed by me. Administered Medications: 16:33 Not Given (Duplicate Order; Pt stated, "I take R[place] 10/325 at home for pain. That eh3 Tylenol isn't going to touch this [pain]"): Tylenol 1000 mg PO once 16:35 Drug: R[place] (HYDROcodone-acetaminophen) 10 mg-325 mg 1 tabs Route: PO; eh3 18:48 Follow up: Response: Pain is decreased eh3 19:45 Drug: Dilaudid (HYDROmorphone) 1 mg Route: IVP; Site: right antecubital; eh3 20:37 Follow up: Response: Pain is decreased eh3 08/12 00:18 Drug: Dilaudid (HYDROmorphone) 1 mg Route: IVP; Site: right antecubital; eh3 06:45 Follow up: Response: No adverse reaction; Marked relief of symptoms lg3 05:08 Drug: Dilaudid (HYDROmorphone) 1 mg Route: IVP; Site: right forearm; lg3 05:31 Follow up: Response: No adverse reaction; Marked relief of symptoms; Pain is decreased lg3 Disposition Summary: 08/11/22 18:33 Hospitalization Ordered Hospitalization Status: Observation ms3 Provider: James Rg ms3 Condition: Stable ms3 Problem: new ms3 Symptoms: are unchanged ms3 Bed/Room Type: Standard ms3 Location: [facility] ER HOLD(08/11/22 21:01) eb1 Room Assignment: ERHOLD-(08/11/22 21:01) eb1 Diagnosis - Chest pain, unspecified ms3 - Essential (primary) hypertension ms3 - Atherosclerotic heart disease of [place] coronary artery ms3 - Other specified diabetes mellitus without complications ms3 Forms: - Medication Reconciliation Form ms3 - SBAR form ms3 Signatures: Dispatcher [employer] EDSeven Yip MD MD rn Basinger, Emily RN RN eb1 Carline Stovall RN RN lg3 Moy Ortega, DO ms3 Destini Fields RN RN ld1 Helene Mojica, RN RN eh3 Corrections: (The following items were deleted from the chart) 08/11 21:01 18:33 Telemetry/MedSurg (observation) ms3 eb1 21:01 18:33 ms3 eb1
[2022-08-11] MEDS ORDERED: HYDROMORPHONE HCL 0.5 MG/0.5 ML INJ ONE (19:34)
[2022-08-11] MEDS ORDERED: HYDROMORPHONE HCL 1 MG/ML INJ ONE (19:37)
--- NOTE | 2022-08-11 20:05 | RAD REPORT ---
EXAM DESCRIPTION: CT - Chest For Pe Angio - 08/11/2022 7:51 pm CLINICAL HISTORY: chest pain COMPARISON: Chest For Pe Angio dated 08/25/2021; Abdomen Pelvis W Contrast dated 08/26/2021 TECHNIQUE: Dynamically enhanced 3 mm thick images of the chest were obtained during administration o f approximately 150mL Isovue 370 IV contrast. Coronal and oblique MIP reconstruction images were gene rated and reviewed. Exam utilizes a protocol to evaluate the pulmonary arterial tree. All CT scans are performed using dose optimization technique as appropriate and may include automated exposure control or mA/KV adjustment according to patient size. FINDINGS: No pulmonary emboli are identified. The aorta as imaged shows no acute or suspicious finding. No pericardial thickening or effusion. No infiltrate or mass in the lung parenchyma. No pleural effusion or pleural thickening. No mediastinal or hilar suspicious masses. No chest wall masses or abnormal axillary lymphadenopathy. Bony degenerative changes are present. Sternotomy wires are in place. Sternum is well-healed. IMPRESSION: No pulmonary emboli identified. No other significant or suspicious findings.
--- NOTE | 2022-08-11 20:10 | RAD REPORT ---
EXAM DESCRIPTION: CT - Abdomen Pelvis W Contrast - 08/11/2022 7:52 pm CLINICAL HISTORY: abdominal pain COMPARISON: Abdomen Pelvis W Contrast dated 08/26/2021; Abdomen Pelvis W Contrast dated 10/12/20 16 TECHNIQUE: Biphasic, helical CT imaging of the abdomen and pelvis was performed following 100 ml non -ionic IV contrast. No oral contrast administered. All CT scans are performed using dose optimization technique as appropriate and may include automated exposure control or mA/KV adjustment according to patient size. FINDINGS: No suspicious findings in the lung bases. Fatty infiltration pattern is seen in the liver with no focal parenchymal lesion. No acute gallbladde r finding. Air is seen within the lumen of the gallbladder. Pneumobilia is present. Gallbladder and b iliary air or noted on the August 2021 study. This is presumed to be from prior papillotomy. No barney creatic or peripancreatic abnormality. Spleen is unremarkable. Symmetric renal function is seen with no hydronephrosis or suspicious renal mass. No pyelonephritis o r acute parenchymal process. Renal cysts are present similar to comparison. Fullness to the lateral u pper pole left kidney is stable back to 2016. No adrenal abnormalities. No dilated bowel loops or bowel wall thickening. No appendicitis findings. No active GI process seen. No free air, free fluid or inflammatory stranding. Small fat filled inguinal hernias are present. N o mass or bulky lymphadenopathy. A 4.8 centimeter periumbilical fat only hernia is present not substa ntially different from prior imaging. Infrarenal abdominal aortic aneurysm is again noted. This measures 4.9 cm AP x 4.7 cm TR. Mural throm bus fills approximately 6% of the aneurysm lumen. No centrally displaced calcification. Size measurem ents are stable from August 2021. No periaortic fluid or stranding. No suspicious bony findings. IMPRESSION: Contrast enhanced CT abdomen and pelvis showing no significant or suspicious finding. Nonacute findings are detailed in the body of the report common not significantly different from [facility] imaging.
[2022-08-11] MEDS ORDERED: ONDANSETRON 4 MG/2 ML VIAL IV PRN (22:37)
[2022-08-11 23:40] VITALS: BMI 39.5
[2022-08-12] MEDS ORDERED: HYDROMORPHONE HCL 1 MG/ML INJ ONE ×2 (00:11→05:01)
[2022-08-12 02:40] LABS: Absolute Lymphocytes (CBC) 1.7 K/uL (0.7-4.9); Hematocrit 44.8 % (39.6-49.0); Lymphocytes % 25.5 % (15.3-44.8); MCV 88.9 fL (80-100); RBC Red Blood Cell Count 5.05 M/uL (4.33-5.43)
[2022-08-12 02:48] LABS: Potassium 4.1 mmol/L (3.5-5.1); Troponin High Sensitivity 14.3 pg/mL (<58.9)
[2022-08-12 07:35] VITALS: BP 145/98; TEMP 97.4
[2022-08-12] MEDS ORDERED: INFLUENZA VACCINE (for 6+ mo) 0.5 ML DOSE IMVAC ONE ×2 (08:00→08:31)
[2022-08-12] MEDS ORDERED: ASPIRIN EC 81 MG TAB PO ONE (08:30)
[2022-08-12] MEDS ORDERED: ASPIRIN EC 81 MG TAB PO SCH (09:00)
[2022-08-12 11:46] VITALS: O2SAT 93
--- NOTE | 2022-08-12 14:32 | EKG ---
Test Date: 2022-08-11 Test Time: 15:15:43 Elevator Technician: AZALEA MEASUREMENT RESULTS: Intervals: Rate: 99 PA: 150 QRSD: 156 QT: 400 QTc: 513 [place]: P: 52 PA: 150 QRS: 265 T: 26 INTERPRETIVE STATEMENTS: Sinus rhythm with occasional premature ventricular complexes Right bundle branch block Possible Lateral infarct, age undetermined Abnormal ECG Compared to ECG 08/11/2022 15:15:03 Ventricular premature complex(es) now present Myocardial infarct finding still present Electronically Signed On 08-12-22 14:29:55 CDT by Master Noel
--- NOTE | 2022-08-12 14:32 | EKG ---
Test Date: 2022-08-11 Test Time: 15:15:03 Grab Jack Worker: AZALEA MEASUREMENT RESULTS: Intervals: Rate: 97 ID: [id number] QRSD: 152 QT: 398 QTc: 505 [place]: P: 53 ID: [id number] QRS: 266 T: 18 INTERPRETIVE STATEMENTS: Normal sinus rhythm Right bundle branch block Possible Lateral infarct, age undetermined Abnormal ECG Compared to ECG 11/30/2021 17:51:07 Atrial premature complex(es) no longer present Myocardial infarct finding still present Electronically Signed On 08-12-22 14:30:00 CDT by Master Noel
--- NOTE | 2022-08-13 01:26 | CON ---
Date of Consultation: 08/12/2022 Reason For Consultation: Chest pain. History Of Present Illness: This is a 67-year-old male, who sees Dr. Grayson in the office, who has history of coronary artery disease status post cardiac bypass surgery 4 years ago and comes in with c hest pain, retrosternal. No radiation, pressure like, not related to exertion. No nausea, vomiting, or diarrhea. No diaphoresis. Cardiac enzymes were done and they were all negative. Past Medical History: Coronary artery disease, diabetes, hypertension, chronic pain and on pain katya fajardo. Past Surgical History: Coronary artery bypass surgery. Medications: Refer to reconciliation sheet for detailed list. Allergies: NO KNOWN DRUG ALLERGIES. Family History: No premature coronary artery disease or cancer. Social History: Does not smoke or drink or use any drugs. Review of Systems: All systems reviewed and they were negative except for what is mentioned in HPI. Physical Examination: Vital Signs: Reviewed. Head And Neck: Pupils are equal and reactive to light. Intact eye movements. No JVD. No cervical lymphadenopathy. Neck: Supple. Thyroid is not enlarged. Lungs: Clear to auscultation bilaterally. No rhonchi, wheezing, or crackles. No accessory muscle u se. Heart: Irregular. No extra sounds. Abdomen: Soft, nontender. Bowel sounds positive. No organomegaly. No masses or hernia. No rigidi ty or rebound. Extremities: No edema, clubbing, or cyanosis. Intact pulses. Skin: No rashes. Neurologic: Alert, awake, and oriented x3. No acute focal deficits appreciated. Investigations: Cardiac enzymes were all negative. Assessment And Recommendations: 1.Chest pain. It is not exertional and cardiac enzymes are negative. He has history of coronary ar spenser disease status post coronary artery bypass graft 4 years ago. If the patient is chest pain free later on today after ambulation, he can be released and follow up as an outpatient. We will plan fo r a stress test and an echo to be done as an outpatient. 2.Hypertension. Blood pressure is acceptable. Continue home medications. 3.Diabetes. Check sugars 3 times a day. Cover with regular insulin per sliding scale. SR/MODL Voice ID: [id number] Report ID: [id number]
== END 2022-08-12 11:03 | disposition home or self-care (01) ==
LOC: ER 14:52 → ERHOLD 22:24
PROVIDERS: ADMIT Internal Medicine; ATTEND Internal Medicine
DX: R07.9 Chest pain, unspecified (principal); I25.10 Atherosclerotic heart disease of native coronary artery without angina pectoris; I25.2 Old myocardial infarction; E11.9 Type 2 diabetes mellitus without complications; I10 Essential (primary) hypertension; G89.29 Other chronic pain; Z95.1 Presence of aortocoronary bypass graft; Z20.822 Contact with and (suspected) exposure to COVID-19; Z23 Encounter for immunization
CPT/HCPCS: 93005 ×2; 85025 ×2; 80048 ×2; 36415; 84484 ×2; 83880; 71275; 74177; 71045; 90471; 99285; 87811; Q9967; Q2035; J1170 ×3; G0378 ×3

== ENCOUNTER 2022-09-25 12:16 | Inpatient (IN) | payer OTHER ==
--- OUTSIDE RECORDS SUMMARY | 2022-09-25 12:21 | XMS REPORT | Continuity of Care Document ---
:1955 Author Organization [facility] t Address [address] [place] [address] Care Team Providers Name Role Phone James Donaldson Primary Care Physician Vaccine, Adc Family Medicine Attending Clinician Unavailable Reece Reyes DO Attending Clinician REECE REYES Attending Clinician Unavailable DORETHA MENDOZA Attending Clinician Unavailable Orestes Mojica Attending Clinician ORESTES MOJICA Attending Clinician Unavailable Doctor Unassigned, [employer] Attending Clinician Unavailable DI ORTIZ Attending Clinician Unavailable DI ORTIZ Admitting Clinician Unavailable Payers Payer Name Policy Type Policy Number Effective Date Expiration Date S [facility] [id number] 2015 MEDICARE GOLD 00:00:00 AETNA MEDICARE ADV [id number] 2017 00:00:00 Problems Condition Condition Condition Status Onset Resolution Last Treating Co mments Source Name Details Category Date Date Treatment Clinician Date Atypical Atypical Disease Active Unive rs chest pain chest pain 6-14 it y of 00:00: [address] Obesity Obesity Disease Active Univers (BMI (BMI 6-14 ity of 30-39.9) 30-39.9) 00:00: [address] KYLE KYLE Disease Active Univers (dyspnea (dyspnea 6-14 ity of on on 00:00: [place] exertion) exertion) 00 [facility] jay Branch Dyslipidem Dyslipidem Disease Active U nivers ia ia 6-14 ity of 00:00: [place] 00 Medical Branch PAF PAF Disease Active Univers (paroxysma (paroxysma 6-14 it y of l atrial l atrial 00:00: [place] fibrillati fibrillati 00 Me dical on): Noted on): Noted Br anch post op post op CABG CABG Acute Acute Disease Active [facility] blood loss blood loss 2-13 Ashley kes anemia anemia 00:00: Medical 00 Center Thrombocyt Thrombocyt Disease Active [facility] openia openia 2-13 [facility] 00 [place] Acute Acute Disease Active [facility] postoperat postoperat 2-13 Ashley kes marti pain marti pain 00:00: Medica l 00 Center Hyperglyce Hyperglyce Disease Active [facility] chinyere chinyere 2-13 [facility] 00:[facility]: Medical 00 [place] Borderline Borderline Disease Active [facility] [...] pain 2-13 [facility] 00:[facility] Medical 00 Center Coronary Coronary Disease Active Unive rs atheroscle atheroscle 2-13 it y of rosis rosis 00:00: [place] 00 Medical Branch Other Other Disease Active Univers chest pain chest pain 7-19 it y of 00:00: [place] 00 [facility] Branch Allergies, Adverse Reactions, Alerts Allergy Allergy Status Severity Reaction(s) Onset Inactive Treating Comm ents Source Name Type Date Date Clinician NO KNOWN Drug Active Univers ALLERGIE Class ity of S [facility] Social History Social Habit Start Date Stop Date Quantity Comments Source Alcohol intake 2017-11-29 2017-11-[address] Kayla es 00:00:00 00:00:00 non-drinker of Medical Ce nter alcohol (finding) Tobacco use and 2017-11-28 2017-11-28 Never used LINDSAY Magana exposure 00:00:00 00:00:00 Medical Center Sex [birth year] At [birth year] LINDSAY Magana 00:00:00 00:00:00 Medical Center Smoking Status Start Date Stop Date Source Never smoked tobacco [facility] Medications Ordered Filled Start Stop Current Ordering Indication Dosage Frequency Signature Comments Components Source Medication Medication Date Date Medication? Clinician (SIG) Name Name LORTAB ORAL Yes None Univer s 6-14 Entered ity of 17:39: [place] 10 Medical Branch HYDROcodone Yes 1{tbl} Take 1 Un cachorro -acetaminop 6-14 tablet by ity of hen 10-325 17:39: mouth [place] mg tablet 10 every 4 Medical (four) Branch hours as needed (pt states, "Q5PRN"). diazePAM 10 Yes 10mg Take 10 mg Univers mg tablet 6-14 by mouth 2 ity of 17:39: (two) [place] 10 times Medical daily as Branch needed. tamsulosin 2017-0 Yes .4mg QD Take 1 [facility] (FLOMAX) 2-20 capsule [facility] 0.4 mg Cp24 00:00: (0.4 mg Med ical 24 hr 00 total) by Center capsule mouth daily. tamsulosin 2018-0 Yes .4mg QD Take 1 [facility] (FLOMAX) 2-20 capsule [facility] 0.4 mg Cp24 00:00: (0.4 mg Med ical 24 hr 00 total) by Center capsule mouth daily. HYDROcodone 2017- Yes 1{tbl} Take [address] -acetaminop 2-19 tablet by Kayla es hen (NORCO 17:49: mouth Medica l 10-325) 47 every 6 Center 10-325 mg (six) per tablet hours as needed for Pain. diazePAM Yes 10mg Take [address] (VALIUM) 10 2-19 by mouth Luke s MG tablet 17:49: every 6 Medic al 47 (six) Center hours as needed for Anxiety. HYDROcodone Yes 1{tbl} Take [address] -acetaminop 2-19 tablet by Kayla amelia [facility] (NORCO 17:49: mouth Medica l 10-325) 47 every 6 Center 10-325 mg (six) per tablet hours as needed for Pain. diazePAM Yes 10mg Take [address] (VALIUM) 10 2-19 by mouth Luke s MG tablet 17:49: every 6 Medic al 47 (six) Center hours as needed for Anxiety. econazole Yes Apply to Univ ers nitrate 1 % 08 area(s) ity o f cream 00:00: daily. 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) SARS-COV-2 COVID-19 2021-01-03 Completed Unive rsity of PFIZER VACCINE 00:00:00 [facility] SARS-COV-2 COVID-19 2020-12-13 Completed Unive rsity of PFIZER VACCINE 00:00:00 [facility] Procedures Procedure Date / Time Performed Performing Clinician [facility] e SARS-COV-2 COVID-19 2022-08-16 19:10:38 Doctor Unassigned, No Un iversity of [place] NAHOMY-SUCROSE VACCINE Name Medical [facility] 12 YRS+, BIVALENT 0.3ML, IM, (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 [id number] Univers 14:00:00 14:00:00 REECE [facility] 2021-01-03 2021-01-03 Outpatient [facility] [id number] Univers 17:10:00 17:10:00 [facility] 2020-12-13 2020-12-13 Outpatient R REJI, [facility] [id number] Univers 16:00:00 16:00:00 DORETHA [facility] 2020-10-30 2020-10-30 [facility] [id number] 14:49:11 23:59:00 Encounter Yahaira Hughes [id number] [place] [id number] [place] [id number] 2020-10-30 2020-10-30 Outpatient R SHAGUFTA [facility] [id number] [facility] 00:00:00 00:00:00 [facility] 2020-10-30 2020-10-30 Orders Doctor ATUL [id number] 00:00:00 00:00:00 Only Unassigned, AMIE [id number] [employer] [place] [id number] Results Test Description Test Time Test Comments Results Result Comments Source CULTURE, URINE 2022-01-01 SPECIMEN NUMBER: 09:10:33 [id number] CULTURE, URINE SPECIMEN NUMBER: [id number] SPECIMEN COMMENT: URINE SOURCE: URINE REPORT STATUS: FINAL FINAL REPORT: 01/01/2022 >100,000 CFU/ML MIXED MICROBIAL POPULATION PRESENT, NO PREDOMINATING ORGANISMS;PROBABLE CONTAMINANTS. CT/NG, NAAT, URINE 2021-12-31 19:56:17 Test Item Value Reference Range Interpretation Comme nts GONORRHEA, NAAT NEGATIVE NEGATIVE IMPORTA NT NOTICE: SEE ANNOUNCEMENT AT (test code = [email or web address]://www.[employer]/RocheCobasUrineKit Note: 81780) Assay methodolo gy is nucleic acid amplification by transcriptio n mediated amplification (TMA) utilizing the A ptima Combo 2 Assay. CHLAMYDIA, NAAT NEGATIVE NEGATIVE IMPORTA NT NOTICE: SEE ANNOUNCEMENT AT (test code = https://www.[employer]/Cook123CobasUrineKit Note: 51763) Assay methodolo gy is nucleic acid amplification by transcriptio n mediated amplification (TMA) utilizing the A pteDabba Combo 2 Assay. [id number] 06:53:53 Test Item Value Reference Range Interpretation Comments RPR RESULT (test code = NON-REACTIVE NON-REACTIVE 3500) RPR TITER (test code = 3500) NOT INDIC. TITER NOT INDIC. COMPREHENSIVE METABOLIC [id number] 06:47:48 Test Item Value Reference Range Interpretation Comments GLUCOSE (test code = 267 MG/DL 70-99 H 2216) BUN (test code = 19 MG/DL 8-23 2207) CREATININE (test 1.13 MG/DL 0.80-1.40 code = 2214) eGFR (2020 CKD-EPI) 72 >60 (test code = 10819) ML/MIN/1.73 CALC BUN/CREAT (test 17 RATIO 6-28 code = 2235) SODIUM (test code = 137 MEQ/L 129-270 7312) POTASSIUM (test code 4.2 MEQ/L 3.5-5.4 = 2227) CHLORIDE (test code 97 MEQ/L 95-107 = 221) CARBON DIOXIDE (test 23 MEQ/L 19-31 code [...] INDICATED, ALL TESTING PERFORM ED ATCLINICAL PATH [facility]. [address] [place] [address] CHELSEA MARY ELLEN DIRECTOR: CRISTIANE MG M.D. CLIA NUMBER [id number] CAP ACCREDITATION N O. [id number] HIV 1/2 4TH GEN, RFLX [id number] 06:40:50 Test Item Value Reference Range Interpretation Comments HIV 1/2 4TH GEN, RFLX CONF (test NON-REACTIVE NON-REACTIVE code = 3514) HEPATITIS PANEL, [id number] 06:40:50 Test Item Value Reference Range Interpretation Comments HEPATITIS A IgM (test NON-REACTIVE NON-REACTIVE code = 66615) HEPATITIS B CORE IgM NON-REACTIVE NON-REACTIVE (test code = 4644) HEPATITIS B SURF AG NON-REACTIVE NON-REACTIVE (test code = 2739) HEPATITIS C ANTIBODY NON-REACTIVE NON-REACTIVE (test code = 4675) INTERPRETATION (NOTE) Hepatitis A HEPATITIS A: (test code sero logy shows no = 2552) evidence of acu te hepatitis A. INTERPRETATION (NOTE) Hepatitis B HEPATITIS B: (test code sero logy shows no = 55778) evidence of acu te hepatitis B and no indication of exposure to hepatitis B vir us in the previous anastasiya eight months. INTERPRETATION (NOTE) Hepatitis C HEPATITIS C: (test code sero logy shows no = 17388) evidence of exposure to hepatitisC viru s at this time. I t can take up to 12 months after exposure tothe hepatitis C vir us for antibodies to become detectab le in the blood in certain patient s. HEMOGLOBIN [id number] 06:38:59 Test Item Value Reference Range Interpretation Comments HEMOGLOBIN A1c (test 9.8 % 4.2-5.6 H [employer]ES code = 18271) ASSOCIATION IDELINES FOR HGB A1C: PREDIABETES/INC REASED [...] LABORATORY C ONSULTATION. CBC W/AUTO DIFF WITH [id number] 05:22:25 Test Item Value Reference Range Interpretation [...] RBCS 0.00 K/UL 0.00-0.11 (test code = 70927) SARS-COV2/RT-PCR ([facility])2020-02-25 10:48:00 Test Item Value Reference Range Interpretation Comments SARS-COV2/RT-PCR (test Not Detected Not Detected, Negative code = 4545189) SARS-COV-2 PERFORMING LAB [facility] (test code = 9850532) Negative results do not preclude SARS-CoV-2 infection [...] of the Act.Fact Sheet for Healthcare Pro viders:https://www.[employer]/Documents/Xpert%20Xpress%20SARS%20CoV-2/Fact%20Sh eets/302-2682%15NZSG-WFD-8%20HEALTHCARE%20PROVIDERS%20FACT%20SHEET.pdfFact Sheet for Healthcare Patients:https://www.[employer]/Documents/Xpert%20Xpress%20SARS%20CoV-2/Fact%20Sheets/302-7621%20SARS-COV -2%20PATIENT%20FACT%20SHEET.pdfPerforming Laboratory:[facility], [place] [address]WBAG-JIUVULX [id number] 12:24:00 Test Item Value Reference Range Interpretation Comments POC-GLUCOSE METER 255 mg/dL 70-110 H TESTED AT [facility] 6720 (BEAKER) (test code = SADA Chatterjee [facility] 1538) [address] POCT-GLUCOSE [id number] 08:35:00 Test Item Value Reference Range Interpretation Comments POC-GLUCOSE METER 127 mg/dL 70-110 H TESTED AT [facility] 6720 (BEAKER) (test code = SADA Chatterjee [facility] 1538) [address]24[address] POCT-GLUCOSE [id number] 00:25:00 Test Item Value Reference Range Interpretation Comments POC-GLUCOSE METER 177 mg/dL 70-110 H TESTED AT [facility] 67 (BEAKER) (test code = SADA Chatterjee [facility] 1538) 27832 HEMOGLOBIN [id number] 14:20:00 Test Item Value Reference Range Interpretation Comments HEMOGLOBIN A1C (BEAKER) (test code = 6.9 % 4.3-6.1 H 368) BASIC METABOLIC [id number] 07:34:00 Test Item Value Reference Range Interpretation [...] ESTIMATED GFR. CBC W/PLT COUNT & AUTO [id number] 06:38:00 Test Item Value Reference Range Interpretation [...] PERCENT (BEAKER) (test code = 2801) POCT-GLUCOSE [id number] 21:40:00 Test Item Value Reference Range Interpretation Comments POC-GLUCOSE METER 171 mg/dL 70-110 H TESTED AT [facility] 6720 (BEAKER) (test code = SADA Chatterjee [place] 1538) [address] POCT-GLUCOSE [id number] 18:53:00 Test Item Value Reference Range Interpretation Comments POC-GLUCOSE METER 136 mg/dL 70-110 H TESTED AT [facility] 6720 (BEAKER) (test code = SADA Chatterjee [place] 1538) [address] BASIC METABOLIC [id number] 05:58:00 Test Item Value Reference Range Interpretation [...] m DATA TO CALCULA TE ESTIMATED GFR. [id number] 05:57:00 Test Item Value Reference Range Interpretation Comments MAGNESIUM (BEAKER) (test code = 1.9 mg/dL 1.6-2.6 627) CBC W/PLT COUNT & AUTO [id number] 05:11:00 Test Item Value Reference Range Interpretation [...] PERCENT (BEAKER) (test code = 2801) POCT-GLUCOSE [id number] 21:45:00 Test Item Value Reference Range Interpretation Comments POC-GLUCOSE METER 177 mg/dL 70-110 H TESTED AT [facility] 6720 (BEAKER) (test code = SADA JERONIMO 1538) [address]387 POCT-GLUCOSE [id number] 18:49:00 Test Item Value Reference Range Interpretation Comments POC-GLUCOSE METER 216 mg/dL 70-110 H TESTED AT [facility] 6720 (BEAKER) (test code = SADA Chatterjee [place] 1538) [address] POCT-GLUCOSE [id number] 09:56:00 Test Item Value Reference Range Interpretation Comments POC-GLUCOSE METER 202 mg/dL 70-110 H TESTED AT [facility] 6720 (BEAKER) (test code = SADA Chatterjee [place] 1538) [address] [id number] 09:37:00 Test Item Value Reference Range Interpretation [...] for patients with mechanical heart valves.BASIC METABOLIC [id number] 09:24:00 Test Item Value Reference Range Interpretation [...] m DATA TO CALCULA TE ESTIMATED GFR. [id number] 09:16:00 Test Item Value Reference Range Interpretation Comments MAGNESIUM (BEAKER) (test code = 1.8 mg/dL 1.6-2.6 627) CBC W/PLT COUNT & AUTO [id number] 08:53:00 Test Item Value Reference Range Interpretation [...] 417) IMMATURE GRANULOCYTES-RELATIVE 0 % 0-1 PERCENT (AKER) (test code = 2801) POCT-GLUCOSE [id number] 21:32:00 Test Item Value Reference Range Interpretation Comments POC-GLUCOSE METER 200 mg/dL 70-110 H TESTED AT [facility] 67 ([facility]) (test code = SADA Chatterjee [place] 1538) [address] POCT-GLUCOSE [id number] 17:42:00 Test Item Value Reference Range Interpretation Comments POC-GLUCOSE METER 191 mg/dL 70-110 H TESTED AT [place] [address] ([facility]) (test code = SADA Chatterjee [place] 1538) [address] HEMOGLOBIN AND [id number] 15:51:00 Test Item Value Reference Range Interpretation Comments [facility] (test code = 7.4 GM/DL 13.7-17.5 L 410) HEMATOCRIT ([facility]) (test code = 23.9 % 40.1-51.0 L 411) POCT-GLUCOSE [id number] 13:02:00 Test Item Value Reference Range Interpretation Comments POC-GLUCOSE METER 190 mg/dL 70-110 H TESTED AT [place] [address] ([facility]) (test code = SADA Chatterjee [place] 1538) [address] POCT-GLUCOSE [id number] 08:10:00 Test Item Value Reference Range Interpretation Comments POC-GLUCOSE METER 176 mg/dL 70-110 H TESTED AT [place] [address] ([facility]) (test code = SADA Chatterjee [place] 1538) [address] RAD, CHEST, 1 VIEW, NON [id number] 07:47:00Reason for exam:->pl effusionShould this be performed at the bedside?->YesFINAL REPORT Chest one view compared to November 30 Discussion: Mild pulmonary c ongestion and probable left lower lung atelectasis. I could not exclude small left effusion. No pneumothorax. IMPRESSIONS: Similar cardiopulmonary appearance. Signed: Atul Mcdonough Verified Date/Time: 12/01/2017 07:47:00 Reading Location: [facility] Radiology Reading Room BASIC METABOLIC [id number] 05:25:00 Test Item Value Reference Range Interpretation [...] m DATA TO CALCULA TE ESTIMATED GFR. [id number] 05:18:00 Test Item Value Reference Range Interpretation Comments MAGNESIUM (BEAKER) (test code = 1.8 mg/dL 1.6-2.6 627) CBC W/PLT COUNT & AUTO [id number] 04:59:00 Test Item Value Reference Range Interpretation [...] PERCENT (BEAKER) (test code = 2801) POCT-GLUCOSE [id number] 22:11:00 Test Item Value Reference Range Interpretation Comments POC-GLUCOSE METER 190 mg/dL 70-110 H TESTED AT [place] [address] ([facility] (test code = [facility] 1538) [address] POCT-GLUCOSE [id number] 16:58:00 Test Item Value Reference Range Interpretation Comments POC-GLUCOSE METER 193 mg/dL 70-110 H TESTED AT [place] [id number] ([facility]) (test code = [facility] 1538) [address] CBC (HEMOGRAM ONLY)2017-11-30 13:05:00 Test Item Value Reference Range Interpretation Comments WHITE BLOOD CELL COUNT (BEAKER) 9.1 K/ L 3.5-10.5 (test code = 775) RED BLOOD CELL COUNT (BEAKER) 3.01 M/ L 4.63-6.08 L (test code = 761) HEMOGLOBIN (BEAKER) (test code = 8.3 GM/DL 13.7-17.5 L 410) HEMATOCRIT (BEAKER) (test code = 26.5 % 40.1-51.0 L 411) MEAN CORPUSCULAR VOLUME ([facility]) 88.0 fL 79.0-92.2 (test code = 753) MEAN CORPUSCULAR HEMOGLOBIN 27.6 pg 25.7-32.2 (AKER) (test code = 751) MEAN CORPUSCULAR HEMOGLOBIN CONC 31.3 GM/DL 32.3-36.5 L (AKER) (test code = 752) RED CELL DISTRIBUTION WIDTH 14.1 % 11.6-14.4 ([facility]) (test code = 412) PLATELET COUNT ([facility]) (test 128 K/CU MM 150-450 L code = 756) MEAN PLATELET VOLUME ([facility]) 11.8 fL 9.4-12.4 (test code = 754) NUCLEATED RED BLOOD CELLS 0 /100 WBC 0-0 ([facility]) (test code = 413) POCT-GLUCOSE [id number] 12:06:00 Test Item Value Reference Range Interpretation Comments POC-GLUCOSE METER 142 mg/dL 70-110 H TESTED AT [place] [address] ([facility]) (test code = [place] 1538) [address] POCT-GLUCOSE [id number] 09:23:00 Test Item Value Reference Range Interpretation Comments POC-GLUCOSE METER 108 mg/dL 70-110 TESTED AT [place] [address] ([facility]) (test code = [place]ADA [place] 1538) [address] [id number] 05:44:00 Test Item Value Reference Range Interpretation Comments ACTIVATED CLOTTING TIME 103 sec TEST ED AT [place] [address] ([facility]) (test code = [place] 441) [address] [id number] 05:44:00 Test Item Value Reference Range Interpretation Comments ACTIVATED CLOTTING TIME 439 sec TEST ED AT [place] [address] ([facility]) (test code = [place] 441) [address] [id number] 05:44:00 Test Item Value Reference Range Interpretation Comments ACTIVATED CLOTTING TIME 604 sec TEST ED AT [place] [address] ([facility]) (test code = [place] 441) [address] [id number] 05:44:00 Test Item Value Reference Range Interpretation Comments ACTIVATED CLOTTING TIME 444 sec TEST ED AT [place] [address] ([facility]) (test code = [place] 441) [address] POCT-GLUCOSE [id number] 04:45:00 Test Item Value Reference Range Interpretation Comments POC-GLUCOSE METER 122 mg/dL 70-110 H TESTED AT [place] [address] ([facility]) (test code = SADA Chatterjee [place] 1538) [address] RAD, CHEST, 1 VIEW, NON [id number] 04:40:00while patient is intubated or has chest [...] Stable surgical changes.Additional findings: None. Signed: JR Capo, Christina Boucher Verified Date/Time: 11/30/2017 04:40:05 Reading Location: [address] Reading Room CBC W/PLT COUNT & AUTO [id number] 03:49:00 Test Item Value Reference Range Interpretation [...] (BEAKER) (test code = 2801) BASIC METABOLIC [id number] 03:49:00 Test Item Value Reference Range Interpretation Comments SODIUM (BEAKER) 141 meq/L 136-145 (test code = 381) POTASSIUM (BEAKER) 4.0 meq/L 3.5-5.1 (test code = 379) CHLORIDE (BEAKER) 110 meq/L 98-107 H (test code = 382) CO2 (BEAKER) (test 24 meq/L 22-29 code = 355) BLOOD UREA NITROGEN 10 mg/dL 7-21 (AKER) (test code = 354) CREATININE (AKER) 0.71 mg/dL 0.57-1.25 (test code = 358) GLUCOSE RANDOM 147 mg/dL 70-105 H ([facility]) (test code = 652) CALCIUM (BEAKER) 7.8 mg/dL 8.4-10.2 L (test code = 697) EGFR ([facility]) (test mL/min/1.73 INSUFFIC IENT CLINICAL code = 1092) sq m DATA TO CALCULA TE ESTIMATED GFR. [id number] 03:42:00 Test Item Value Reference Range Interpretation Comments MAGNESIUM (BEAKER) (test code = 1.9 mg/dL 1.6-2.6 627) POCT-GLUCOSE [id number] 03:04:00 Test Item Value Reference Range Interpretation Comments POC-GLUCOSE METER 143 mg/dL 70-110 H TESTED AT [place] [address] ([facility]) (test code = [facility] Sen [facility] 1538) [address] POCT-GLUCOSE [id number] 02:04:00 Test Item Value Reference Range Interpretation Comments POC-GLUCOSE METER 146 mg/dL 70-110 H TESTED AT [place] [address] ([facility]) (test code = [facility] Sen [facility] 1538) [address] POCT-GLUCOSE [id number] 01:04:00 Test Item Value Reference Range Interpretation Comments POC-GLUCOSE METER 203 mg/dL 70-110 H TESTED AT [place] [address] ([facility]) (test code = [facility] 1538) [address] [id number] 01:03:00 Test Item Value Reference Range Interpretation Comments POTASSIUM (BEAKER) (test code = 4.3 meq/L 3.5-5.1 379) [id number] 01:03:00 Test Item Value Reference Range Interpretation Comments MAGNESIUM (BEAKER) (test code = 2.1 mg/dL 1.6-2.6 627) CALCIUM, [id number] 00:29:00 Test Item Value Reference Range Interpretation Comments CALCIUM IONIZED (BEAKER) (test 1.08 mmol/L 1.12-1.27 L code = 698) PH, BLOOD (BEAKER) (test code = 7.39 1810) POCT-GLUCOSE [id number] 00:09:00 Test Item Value Reference Range Interpretation Comments POC-GLUCOSE METER 214 mg/dL 70-110 H TESTED AT [place] [address] ([facility]) (test code = [facility] Sen [facility] 1538) [address] POCT-GLUCOSE [id number] 22:51:00 Test Item Value Reference Range Interpretation Comments POC-GLUCOSE METER 179 mg/dL 70-110 H TESTED AT [place] [address] ([facility]) (test code = [facility] 1538) [id number] POCT-GLUCOSE [id number] 22:13:00 Test Item Value Reference Range Interpretation Comments POC-GLUCOSE METER 206 mg/dL 70-110 H TESTED AT [place] [address] ([facility]) (test code = [facility] 1538) [id number] BLOOD GAS, [id number] 21:08:00 Test Item Value Reference Range Interpretation [...] = 1819) 36.0 % Post extubation ABGPOCT-GLUCOSE [id number] 21:03:00 Test Item Value Reference Range Interpretation Comments POC-GLUCOSE METER 197 mg/dL 70-110 H TESTED AT [place] [address] ([facility] [facility]ENTER) (test code = [facility] 1538) [id number] POCT-GLUCOSE [id number] 20:47:00 Test Item Value Reference Range Interpretation Comments POC-GLUCOSE METER 197 mg/dL 70-110 H TESTED AT [place] [address] ([facility]) (test code = [facility] 1538) [id number] 20:10:00 Test Item Value Reference Range Interpretation Comments MAGNESIUM (BEAKER) (test code = 2.3 mg/dL 1.6-2.6 627) Check Serum Magnesium level 2 hours after IV magnesium replacement.POCT-GLUCOSE [id number] 20:02:00 Test Item Value Reference Range Interpretation Comments POC-GLUCOSE METER 234 mg/dL 70-110 H TESTED AT [place] [address] ([facility] (test code = [facility] [address] BLOOD GAS, [id number] 19:57:00 Test Item Value Reference Range Interpretation [...] (test code = 1819) 40.0 % POCT-GLUCOSE [id number] 18:44:00 Test Item Value Reference Range Interpretation Comments POC-GLUCOSE METER 209 mg/dL 70-110 H TESTED AT [place] [address] (BEAKER) (test code = [facility] 1538) [address] BASIC METABOLIC [id number] 16:13:00 Test Item Value Reference Range Interpretation [...] ESTIMATED GFR. RAD, CHEST, 1 VIEW, NON [id number] 16:13:00Reason for exam:->intubated, chest tubesShould this be performed at the bedside?->YesFINAL REPORT TECHNIQUE: Frontal chest radiograph dated 11/29/2017. CLINICAL HISTO RY: Intubated, chest tubes COMPARISON STUDY: Chest radiograph [...] the spine. Signed: Leticia Maineport Verified Date/Time: 11/29/201716:13:26 Reading Location: [facility] Radiology Reading Room APTT 2017-11-29 16:12:00 Test Item Value Reference Range Interpretation Comments PARTIAL THROMBOPLASTIN TIME 31.4 seconds 22.5-36.0 (BEAKER) (test code = 760) PROTHROMBIN [id number] 16:11:00 Test Item Value Reference Range Interpretation Comments PROTIME (BEAKER) (test code = 17.6 seconds 11.7-14.7 H 759) INR (BEAKER) (test code = 370) 1.5 <=5.9 RECOMMENDED COUMADIN/WARFARIN INR THERAPY RANGESSTANDARD DOSE: 2.0 - 3.0 Includes: PROPHYLAXIS for venous thrombosis, systemic embolization; TREATMENT for venous thrombosis and/or pulmonary embolus.HIGH RISK: Target INR is 2.5-3.5 for patients with mechanical heart valves.[id number] 16:11:00 Test Item Value Reference Range Interpretation Comments MAGNESIUM (BEAKER) 1.7 mg/dL 1.6-2.6 Specimen slightly (test code = 627) hemolyzed LACTIC ACID, ARTERIAL, WHOLE [id number] 16:06:00 Test Item Value Reference Range Interpretation Comments LACTATE BLOOD 1.2 mmol/L 0.5-2.2 Specimen sligh tly ARTERIAL (2) (BEAKER) hemoly zed (test code = 2874) Effective 02/18/2016: Units/Reference Range ChangeNew: 0.5-2.2 mmol/L Previous: 5- 20 mg/dLCBC W/PLT COUNT & AUTO [id number] 16:02:00 Test Item Value Reference Range Interpretation [...] (BEAKER) (test code = 2801) OXYGEN SATURATION, [id number] 15:54:00 Test Item Value Reference Range Interpretation Comments O2 SATURATION (MEASURED) (BEAKER) 64.9 % (test code = 1455) From distal port of IJ central venous catheterSODIUM NA-STAT [id number] 15:54:00 Test Item Value Reference Range Interpretation Comments SODIUM (BEAKER) (test code = 381) 138 meq/L 135-148 POTASSIUM-STAT [id number] 15:54:00 Test Item Value Reference Range Interpretation Comments POTASSIUM (BEAKER) (test code = 4.2 meq/L 3.6-5.5 379) BLOOD GAS, [id number] 15:54:00 Test Item Value Reference Range Interpretation [...] (test code = 1819) 60.0 % CALCIUM, [id number] 15:54:00 Test Item Value Reference Range Interpretation Comments CALCIUM IONIZED (BEAKER) (test 1.06 mmol/L 1.12-1.27 L code = 698) PH, BLOOD (BEAKER) (test code = 7.31 1810) GLUCOSE-STAT [id number] 15:54:00 Test Item Value Reference Range Interpretation Comments GLUCOSE RANDOM (BEAKER) (test code 173 mg/dL 70-110 H = 652) HGB/HCT (H&H) - STAT [id number] 15:54:00 Test Item Value Reference Range Interpretation [...] MM 55.0-65.0 (test code = 1413) PLATELET [id number] 14:50:00 Test Item Value Reference Range Interpretation Comments PLATELET COUNT (BEAKER) (test code 98 K/CU MM 150-450 L = 756) [id number] 14:27:00 Test Item Value Reference Range Interpretation Comments FIBRINOGEN LEVEL (BEAKER) (test 176 mg/dl 225-434 L code = 658) PROTHROMBIN [id number] 14:14:00 Test Item Value Reference Range Interpretation Comments PROTIME (BEAKER) (test code = 20.7 seconds 11.7-14.7 H 759) INR (BEAKER) (test code = 370) 1.8 <=5.9 RECOMMENDED COUMADIN/WARFARIN INR THERAPY RANGESSTANDARD DOSE: 2.0 - 3.0 Includes: PROPHYLAXIS for venous thrombosis, systemic embolization; TREATMENT for venous thrombosis and/or pulmonary embolus.HIGH RISK: Target INR is 2.5-3.5 for patients with mechanical heart valves.[id number] 14:14:00 Test Item Value Reference Range Interpretation Comments PARTIAL THROMBOPLASTIN TIME 30.2 seconds 22.5-36.0 (BEAKER) (test code = 760) CALCIUM, [id number] 13:55:00 Test Item Value Reference Range Interpretation Comments CALCIUM IONIZED (BEAKER) (test 1.13 mmol/L 1.12-1.27 code = 698) PH, BLOOD (BEAKER) (test code = 7.30 1810) BLOOD GAS, [id number] 13:55:00 Test Item Value Reference Range Interpretation [...] (test code = 1819) 100.0 % GLUCOSE-STAT [id number] 13:55:00 Test Item Value Reference Range Interpretation Comments GLUCOSE RANDOM (BEAKER) (test code 201 mg/dL 70-110 H = 652) HGB/HCT (H&H) - STAT [id number] 13:55:00 Test Item Value Reference Range Interpretation Comments HEMOGLOBIN (BEAKER) (test code = 9.7 g/dL 13.0-16.8 L 410) HEMATOCRIT (BEAKER) (test code = 29.0 % 40.0-50.0 L 411) SODIUM NA-STAT [id number] 13:54:00 Test Item Value Reference Range Interpretation Comments SODIUM (BEAKER) (test code = 381) 137 meq/L 135-148 POTASSIUM-STAT [id number] 13:54:00 Test Item Value Reference Range Interpretation Comments POTASSIUM (BEAKER) (test code = 3.9 meq/L 3.6-5.5 379) BLOOD GAS, [id number] 13:22:00 Test Item Value Reference Range Interpretation [...] (test code = 1819) 80.0 % GLUCOSE-STAT [id number] 13:22:00 Test Item Value Reference Range Interpretation Comments GLUCOSE RANDOM (BEAKER) (test code 191 mg/dL 70-110 H = 652) HGB/HCT (H&H) - STAT [id number] 13:22:00 Test Item Value Reference Range Interpretation Comments HEMOGLOBIN (BEAKER) (test code = 9.3 g/dL 13.0-16.8 L 410) HEMATOCRIT (BEAKER) (test code = 27.0 % 40.0-50.0 L 411) SODIUM NA-STAT [id number] 13:18:00 Test Item Value Reference Range Interpretation Comments SODIUM (BEAKER) (test code = 381) 136 meq/L 135-148 POTASSIUM-STAT [id number] 13:18:00 Test Item Value Reference Range Interpretation Comments POTASSIUM (BEAKER) (test code = 4.6 meq/L 3.6-5.5 379) BLOOD GAS, [id number] 12:39:00 Test Item Value Reference Range Interpretation [...] code = 1819) 60.0 % SODIUM NA-STAT [id number] 12:39:00 Test Item Value Reference Range Interpretation Comments SODIUM (BEAKER) (test code = 381) 134 meq/L 135-148 L GLUCOSE-STAT [id number] 12:39:00 Test Item Value Reference Range Interpretation Comments GLUCOSE RANDOM (BEAKER) (test code 166 mg/dL 70-110 H = 652) HGB/HCT (H&H) - STAT [id number] 12:39:00 Test Item Value Reference Range Interpretation Comments HEMOGLOBIN (BEAKER) (test code = 9.9 g/dL 13.0-16.8 L 410) HEMATOCRIT (BEAKER) (test code = 29.0 % 40.0-50.0 L 411) POTASSIUM-STAT [id number] 12:38:00 Test Item Value Reference Range Interpretation Comments POTASSIUM (BEAKER) (test code = 4.4 meq/L 3.6-5.5 379) SODIUM NA-STAT [id number] 11:22:00 Test Item Value Reference Range Interpretation Comments SODIUM (BEAKER) (test code = 381) 140 meq/L 135-148 POTASSIUM-STAT [id number] 11:22:00 Test Item Value Reference Range Interpretation Comments POTASSIUM (BEAKER) (test code = 4.0 meq/L 3.6-5.5 379) HGB/HCT (H&H) - STAT [id number] 11:22:00 Test Item Value Reference Range Interpretation Comments HEMOGLOBIN (BEAKER) (test code = 14.5 g/dL 13.0-16.8 410) HEMATOCRIT (BEAKER) (test code = 43.0 % 40.0-50.0 411) BLOOD GAS, [id number] 11:22:00 Test Item Value Reference Range Interpretation [...] (test code = 1819) 100.0 % GLUCOSE-STAT [id number] 11:22:00 Test Item Value Reference Range Interpretation Comments GLUCOSE RANDOM (BEAKER) (test code 112 mg/dL 70-110 H = 652) PLATELET AGGREGATION: FUNCTION [id number] 09:52:00 Test Item Value Reference Range Interpretation Comments WEAK ADP 68 % 60-91 RESULT(BEAKER) (test code = 2135) PLATELET FUNCTION 60-100% indicates SCREEN INTERP (BEAKER) normal platelet (test code = 2173) function [id number] Batsheva Llamas MD (BEAKER) (test code = (electronic signature) 1886) PLATELET COUNT AGG 176 K/CU MM 150-450 (BEAKER) (test code = 2656) RAD, CHEST, 1 VIEW, NON [id number] 08:51:00Reason for exam:->preop for CV surgeryFINAL REPORT [...] Verified Date/Time: 11/29/2017 08:51:39 Reading Location: [facility] Women Electronically signed by: ULISES KATHLEEN M.D. on11/29/2017 08:51 AM POCT-GLUCOSE [id number] 07:42:00 Test Item Value Reference Range Interpretation Comments POC-GLUCOSE METER 105 mg/dL 70-110 TESTED AT [facility] 6720 (BEAKER) (test code = SADA Chatterjee [facility] 1538) [address] COMPREHENSIVE METABOLIC [id number] 07:03:00 Test Item Value Reference Range Interpretation [...] O CALCULATE ESTIM ATED GFR. BASIC METABOLIC [id number] 07:03:00 Test Item Value Reference Range Interpretation [...] m DATA TO CALCULA TE ESTIMATED GFR. [id number] 06:54:00 Test Item Value Reference Range Interpretation Comments MAGNESIUM (BEAKER) (test code = 1.9 mg/dL 1.6-2.6 627) PROTHROMBIN [id number] 06:46:00 Test Item Value Reference Range Interpretation Comments PROTIME (BEAKER) (test code = 13.4 seconds 11.7-14.7 759) INR (BEAKER) (test code = 370) 1.0 <=5.9 RECOMMENDED COUMADIN/WARFARIN INR THERAPY RANGESSTANDARD DOSE: 2.0 - 3.0 Includes: PROPHYLAXIS for venous thrombosis, systemic embolization; TREATMENT for venous thrombosis and/or pulmonary embolus.HIGH RISK: Target INR is 2.5-3.5 for patients with mechanical heart valves.CBC W/PLT COUNT & AUTO [id number] 06:35:00 Test Item Value Reference Range Interpretation [...] PERCENT (BEAKER) (test code = 2801) POCT-GLUCOSE [id number] 21:53:00 Test Item Value Reference Range Interpretation Comments POC-GLUCOSE METER 131 mg/dL 70-110 H TESTED AT [facility] 6720 (BEAKER) (test code = SADA Chatterjee [facility] 1538) [address] HEMOGLOBIN [id number] 20:50:00 Test Item Value Reference Range Interpretation Comments HEMOGLOBIN A1C (BEAKER) (test code = 6.6 % 4.3-6.1 H 368) POCT-GLUCOSE [id number] 19:15:00 Test Item Value Reference Range Interpretation Comments POC-GLUCOSE METER 134 mg/dL 70-110 H TESTED AT [facility] 6720 ([facility]) (test code = SADA Chatterjee [facility] 1538) [address] [id number] 18:35:00 Test Item Value Reference Range Interpretation Comments PARTIAL THROMBOPLASTIN TIME 32.4 seconds 22.5-36.0 (BEAKER) (test code = 760) [id number] 18:34:00 Test Item Value Reference Range Interpretation Comments FIBRINOGEN LEVEL (BEAKER) (test 372 mg/dl 225-434 code = 658) TSH/FREE T4 IF [id number] 16:25:00 Test Item Value Reference Range Interpretation Comments THYROID STIMULATING HORMONE 2.53 uIU/mL 0.35-4.94 (BEAKER) (test code = 772) BASIC METABOLIC [id number] 16:10:00 Test Item Value Reference Range Interpretation [...] m DATA TO CALCULA TE ESTIMATED GFR. [id number] 16:09:00 Test Item Value Reference Range Interpretation Comments PHOSPHORUS (BEAKER) (test code = 3.0 mg/dL 2.3-4.7 604) [id number] 16:09:00 Test Item Value Reference Range Interpretation Comments MAGNESIUM (BEAKER) (test code = 2.0 mg/dL 1.6-2.6 627) LIPID [id number] 16:09:00 Test Item Value Reference Range Interpretation [...] 130-159 High 160-189 Very High >=190HEPATIC FUNCTION [id number] 16:09:00 Test Item Value Reference Range Interpretation [...] (test code = 22 U/L 6-55 347) [id number] 16:04:00 Test Item Value Reference Range Interpretation Comments PROTIME (BEAKER) (test code = 14.5 seconds 11.7-14.7 759) INR (BEAKER) (test code = 370) 1.1 <=5.9 PARTIAL THROMBOPLASTIN TIME 29.6 seconds 22.5-36.0 (ROSE) (test code = 760) RECOMMENDED COUMADIN/WARFARIN INR THERAPY RANGESSTANDARD DOSE: 2.0 - 3.0 Includes: PROPHYLAXIS for venous thrombosis, systemic embolization; TREATMENT for venous thrombosis and/or pulmonary embolus.HIGH RISK: Target INR is 2.5-3.5 for patients with mechanical heart valves.
[2022-09-25] MEDS ORDERED: FENTANYL CITR 100 MCG/2 ML ONE (14:01)
--- NOTE | 2022-09-25 14:36 | RAD REPORT ---
EXAM DESCRIPTION: US - Extremity Venous Uni Ltd - 09/25/2022 2:25 pm CLINICAL HISTORY: Swelling COMPARISON: None. TECHNIQUE: Real-time sonographic evaluation of the left lower extremity deep venous system was perfo rmed. FINDINGS: Normal compressibility, flow augmentation, phasic flow and spontaneous flow is identified in the left lower extremity deep venous system. No intraluminal filling defects seen. IMPRESSION: No DVT in the left lower extremity.
--- NOTE | 2022-09-25 14:42 | RAD REPORT ---
EXAM DESCRIPTION: US - Lower Extremity Artery Uni Ltd - 09/25/2022 2:25 pm CLINICAL HISTORY: Leg pain COMPARISON: None FINDINGS: The common femoral, superficial femoral and popliteal arteries bilaterally demonstrate triphasic wave forms Monophasic flow is present within the posterior tibial artery. Minimal monophasic flow present within the dorsalis pedis artery. 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
--- NOTE | 2022-09-25 15:05 | RAD REPORT ---
EXAM DESCRIPTION: RAD - Chest Single View - 09/25/2022 2:53 pm CLINICAL HISTORY: left leg swelling COMPARISON: None FINDINGS: Lines: None. Lungs: Pulmonary vascular congestion. Pleural: No significant pleural effusions or pneumothorax. Cardiac: Similar size and configuration. Mediastinum: Within normal limits. Bones: No acute fractures. Sternotomy. Other: None IMPRESSION: Pulmonary vascular congestion.
[2022-09-25 15:22] LABS: Absolute Lymphocytes (CBC) 1.1 K/uL (0.7-4.9); Lymphocytes % 10.3 % (15.3-44.8); MPV 8.9 fL (7.6-11.3); RBC Red Blood Cell Count 4.78 M/uL (4.33-5.43)
[2022-09-25 15:25] LABS: Protime INR 1.25
[2022-09-25 15:41] LABS: Bilirubin Direct 0.3 mg/dL (0-0.2); Bilirubin Total 0.8 mg/dL (0.2-1.0); Magnesium 1.9 mg/dL (1.6-2.4); Potassium 3.7 mmol/L (3.5-5.1); Protein, Total 7.4 g/dL (6.4-8.2); Troponin High Sensitivity 10.2 pg/mL (<58.9)
[2022-09-25] MEDS ORDERED: CEFEPIME 2 GM VIAL ONE (16:30)
[2022-09-25] MEDS ORDERED: NA CHLORIDE 0.9% 250 ML ONE (16:30)
[2022-09-25] MEDS ORDERED: VANCOMYCIN 1 GM/VIAL ONE (16:30)
[2022-09-25] MEDS ORDERED: NA CHLORIDE 0.9% 100 ML IV ONE (16:30)
--- NOTE | 2022-09-25 16:54 | EDPHYS ---
Physician Documentation [facility] Name: Armond Beltrán Age: 67 yrs Sex: Male : 1955 Arrival Date: 09/25/2022 Time: 12:17 Bed 13 Private MD: James Rg V ED Physician Raffaele Ramirez HPI: 09/25 13:40 This 67 yrs old Male presents to ER via Wheelchair with complaints of Fever, cp Wound Check - l foot. 13:40 The patient presents with pain, that is acute. cp 13:40 The complaints affect the left lower leg. Context: previous history of cellulitis of cp left lower leg. Onset: The symptoms/episode began/occurred 1 week(s) ago. 13:40 Associated signs and symptoms: Pertinent positives: calf tenderness, swelling, cp erythema, Pertinent negatives fever. Historical: - Allergies: 13:06 NKA; iw - PMHx: 13:06 CABG; Chronic pain; Diabetes - NIDDM; Hypertension; Myocardial infarction; iw - Immunization history:: Client reports receiving the 2nd dose of the Covid vaccine. - Social history:: Smoking status: Patient denies any tobacco usage or history of. ROS: 13:45 Constitutional: Negative for body aches, chills, fever, poor PO intake. cp 13:45 Cardiovascular: Negative for chest pain, palpitations. cp 13:45 Eyes: Negative for injury, pain, redness, and discharge. cp 13:45 ENT: Negative for drainage from ear(s), ear pain, sore throat, difficulty swallowing, difficulty handling secretions. 13:45 Respiratory: Negative for cough, shortness of breath, wheezing. 13:45 Abdomen/GI: Negative for abdominal pain, nausea, vomiting, and diarrhea. 13:45 Back: Negative for pain at rest, pain with movement. 13:45 MS/extremity: Positive for erythema, pain, swelling, tenderness, of the left lower leg, Negative for injury or acute deformity, paresthesias. 13:45 Neuro: Negative for altered mental status, dizziness, headache, numbness, weakness. 13:45 All other systems are negative. Exam: 13:50 Constitutional: The patient appears in no acute distress, alert, awake, cp non-diaphoretic, non-toxic, well developed, well nourished, obese. 13:50 Head/Face: Normocephalic, atraumatic. cp 13:50 Eyes: Periorbital structures: appear normal, Conjunctiva: normal, no exudate, no injection, Sclera: no appreciated abnormality, Lids and lashes: appear normal, bilaterally. 13:50 ENT: External ear(s): are unremarkable, Nose: is normal, Mouth: Lips: moist, Oral mucosa: pink and intact, moist, Posterior pharynx: Airway: no evidence of obstruction, patent. 13:50 Chest/axilla: Inspection: normal, Palpation: is normal, no crepitus, no tenderness. 13:50 Cardiovascular: Rate: normal, Rhythm: regular. 13:50 Respiratory: the patient does not display signs of respiratory distress, Respirations: normal, no use of accessory muscles, no retractions, labored breathing, is not present, Breath sounds: are clear throughout, no decreased breath sounds, no stridor, no wheezing. 13:50 Abdomen/GI: Inspection: obese Bowel sounds: active, all quadrants, Palpation: soft, in all quadrants, nontender, in all quadrants. 13:50 Back: pain, is absent, ROM is normal. 13:50 Skin: mild swelling, circumferential erythema, tenderness to palpation noted to left lower leg, left dorsalis pedis pulse weak but present. 13:50 Neuro: Orientation: to person, place \T\ time. Mentation: is normal, Motor: moves all fours, strength is normal, Sensation: is normal. 14:42 ECG was reviewed by the Attending Physician. cp Vital Signs: 13:04 BP 101 / 64; Pulse 97; Resp 18; Temp 97.5; Pulse Ox 97% on R/A; Weight 136.08 kg; iw Height 6 ft. 2 in. (187.96 cm); Pain 8/10; 13:30 BP 104 / 59; Pulse 90; Resp 16; Pulse Ox 97% on R/A; eh3 15:00 BP 118 / 71; Pulse 84; Resp 20; Pulse Ox 98% on R/A; eh3 16:00 BP 113 / 68; Pulse 83; Resp 18; Pulse Ox 98% on R/A; eh3 17:00 BP 115 / 73; Pulse 86; Resp 14; Temp 98.0(O); Pulse Ox 98% on R/A; eh3 18:00 BP 111 / 65; Pulse 89; Resp 20; Pulse Ox 97% on R/A; eh3 19:00 BP 115 / 64; Pulse 90; Resp 20; Pulse Ox 97% on R/A; eh3 13:04 Body Mass Index 38.52 (136.08 kg, 187.96 cm) iw MDM: 13:18 Patient medically screened. cp 14:00 Differential diagnosis: sepsis, cellulitis, DVT. cp 16:25 Data reviewed: vital signs, nurses notes, lab test result(s), EKG, radiologic studies, cp plain films, ultrasound. 16:25 Test interpretation: by ED physician or midlevel provider: ECG, plain radiologic cp studies. Counseling: I had a detailed discussion with the patient and/or guardian regarding: the historical points, exam findings, and any diagnostic results supporting the discharge/admit diagnosis, lab results, radiology results, the need for further work-up and treatment in the hospital. 16:28 Physician consultation: James Rg MD was called at 16:28, regarding admission, cp patient's condition, and will see patient in ED, shortly. 16:45 ED course: Patient seen and evaluated by DR Rg in ED. Radha Moon 1 grm bid cp started and admission orders. 09/25 13:34 Order name: Basic Metabolic Panel; Complete Time: 16:13 cp 09/25 16:13 Interpretation: Normal except: NA 134; GLUC 284; BUN 22; GFR 61. cp 09/25 13:34 Order name: CBC with Diff; Complete Time: 15:37 cp 09/25 15:38 Interpretation: Normal except: WBC 11.20; PLT 146; NIKITA% 83.0; LYM% 10.3; NEUT A 9.3. cp 10 13:34 Order name: LFT's; Complete Time: 16:13 cp 09/25 13:34 Order name: Magnesium; Complete Time: 16:13 cp 09/25 13:34 Order name: NT PRO-BNP; Complete Time: 16:13 cp 09/25 13:34 Order name: PT-INR; Complete Time: 15:37 cp 09/25 13:34 Order name: Troponin HS; Complete Time: 16:13 cp 09/25 13:34 Order name: Procalcitonin; Complete Time: 16:55 cp 09/25 16:55 Interpretation: Reviewed. 09/25 13:34 Order name: Blood Culture Adult (2) cp 09/25 13:34 Order name: Lactate w/ 2H reflex if indic.; Complete Time: 16:13 09/25 16:14 Interpretation: Abnormal: LAC 2.9. 09/25 17:53 Order name: Basic Metabolic Panel EDMS 09/25 17:53 Order name: Basic Metabolic Panel EDMS 09/25 17:53 Order name: CBC with Automated Diff EDMS 09/25 17:53 Order name: CBC with Automated Diff EDMS 09/25 13:34 Order name: Extremity Venous Unilateral Ltd; Complete Time: 15:13 cp 09/25 15:14 Interpretation: Report reviewed. 09/25 13:34 Order name: LE Artery Uni Ltd; Complete Time: 15:13 09/25 15:16 Interpretation: Report reviewed. 09/25 13:34 Order name: XRAY Chest (1 view); Complete Time: 15:13 09/25 15:16 Interpretation: Report review. 09/25 13:34 Order name: EKG; Complete Time: 13:35 09/25 13:34 Order name: Cardiac monitoring; Complete Time: 13:51 09/25 13:34 Order name: EKG - Nurse/Tech; Complete Time: 15:15 09/25 13:34 Order name: IV Saline Lock; Complete Time: 15:15 09/25 17:44 Order name: Diet Ada 1800 Matias; Complete Time: 17:45 3 09/25 19:18 Order name: SARS RAPID eh3 09/25 19:37 Order name: Lactate Sepsis 2 HR Follow-up EDMS 09/25 20:27 Order name: Vancomycin Level Trough EDCA 09/25 20:59 Order name: SARS-COV-2 Antigen Rapid EDMS 09/25 13:34 Order name: Labs collected and sent; Complete Time: 15:15 09/25 13:34 Order name: O2 Per Protocol; Complete Time: 13:45 09/25 13:34 Order name: O2 Sat Monitoring; Complete Time: 13:45 cp EC:42 Rate is 82 beats/min. Rhythm is regular. [place] interval is normal. QRS interval is cp prolonged at 172 msec. QT interval is normal. T waves are Inverted in leads aVL, V3, V4, V5, V6. Interpreted by me. Reviewed by me. Administered Medications: 15:00 Drug: fentaNYL (PF) 25 mcg Route: IVP; Site: left antecubital; [facility] 16:21 Follow up: Response: Pain is unchanged, physician notified [facility] 17:00 Drug: Cefepime 2 grams Route: IVPB; Rate: 200 ml/hr; Infused Over: 30 mins; Site: left [facility] antecubital; 17:30 Follow up: IV Status: Completed infusion; IV Intake: 100ml [facility] 17:00 Drug: morphine 4 mg Route: IVP; Infused Over: 4 mins; Site: left antecubital; [facility] 17:44 Follow up: Response: Pain is unchanged, physician notified [facility] 17:30 Drug: vancoMYCIN 1 grams Route: IVPB; Infused Over: 2 hrs; Site: left antecubital; [facility] 21:39 Follow up: Response: No adverse reaction; IV Status: Completed infusion; IV Intake: eh3 250ml Disposition Summary: 09/25/22 16:54 Hospitalization Ordered Hospitalization Status: Inpatient Admission cp Provider: James Rg cp Location: Telemetry/[facility] (Inpatient) cp Condition: Fair cp Problem: new cp Symptoms: have improved cp Bed/Room Type: Standard cp Room Assignment: 402(09/25/22 21:00) cg Diagnosis - Cellulitis of left lower limb cp - Obesity, unspecified cp - Diabetes mellitus due to underlying condition with hyperglycemia cp - Unspecified combined systolic (congestive) and diastolic (congestive) heart failure cp Forms: - Medication Reconciliation Form cp - SBAR form cp Addendum: 10/01/2022 17:09 Co-signature as Attending Physician, Raffaele Ramirez MD I agree with the assessment and r t plan of care. Signatures: Dispatcher [employer] Radha Clemens FNP-C PACKAGING COORDINATOR-Csnw Urszula Pedraza RN RN Rico Storey PA PA cp Malorie Echeverria RN RN cg Helene Mojica RN RN [facility] Raffaele Ramirez MD MD rt Corrections: (The following items were deleted from the chart) 09/25 21:00 16:54 cp cg
--- NOTE | 2022-09-25 16:54 | ER ---
Nurse's Notes [facility] Name: Armond Beltrán Age: 67 yrs Sex: Male : 1955 Arrival Date: 09/25/2022 Time: 12:17 Bed 13 Private MD: James Rg V Diagnosis: Cellulitis of left lower limb;Obesity, unspecified;Diabetes mellitus due to underlying condition with hyperglycemia;Unspecified combined systolic (congestive) and diastolic (congestive) heart failure Presentation: 09/25 13:04 Chief complaint: Patient states: left leg is swollen and red X 1 week. Coronavirus iw screen: At this time, the client does not indicate any symptoms associated with coronavirus-19. Ebola Screen: Patient negative for fever greater than or equal to 101.5 degrees Fahrenheit, and additional compatible Ebola Virus Disease symptoms Patient denies exposure to infectious person. Patient denies travel to an Ebola-affected area in the 21 days before illness onset. No symptoms or risks identified at this time. Initial Sepsis Screen: Does the patient meet any 2 criteria? No. Patient's initial sepsis screen is negative. Does the patient have a suspected source of infection? No. Patient's initial sepsis screen is negative. Risk Assessment: Do you want to hurt yourself or someone else? Patient reports no desire to harm self or others. Onset of symptoms was September 18, 2022. 13:04 Method Of Arrival: Wheelchair iw 13:04 Acuity: KEVIN 3 iw Triage Assessment: 13:30 General: Appears in no apparent distress. uncomfortable, Behavior is calm, cooperative, eh3 appropriate for age. Pain: Complains of pain in left leg. EENT: No deficits noted. Neuro: Level of Consciousness is awake, alert, obeys commands, Oriented to person, place, time, situation. Cardiovascular: Capillary refill < 3 seconds is > 3 seconds in left toes Patient's skin is warm and dry. Respiratory: Airway is patent Respiratory effort is even, unlabored, Respiratory pattern is regular, symmetrical. GI: No signs and/or symptoms were reported involving the gastrointestinal system. Abdomen is round non-distended. : No signs and/or symptoms were reported regarding the genitourinary system. Derm: Skin is dusky, in left foot Reports pain that is 8 out of 10 on a pain scale. tingling. Musculoskeletal: Circulation, motion, and sensation intact. Range of motion: intact in all extremities. Historical: - Allergies: 13:06 NKA; iw - PMHx: 13:06 CABG; Chronic pain; Diabetes - NIDDM; Hypertension; Myocardial infarction; iw - Immunization history:: Client reports receiving the 2nd dose of the Covid vaccine. - Social history:: Smoking status: Patient denies any tobacco usage or history of. Screenin:30 Abuse screen: Denies threats or abuse. Denies injuries from another. Nutritional eh3 screening: No deficits noted. Tuberculosis screening: No symptoms or risk factors identified. Fall Risk None identified. Assessment: 13:49 Reassessment: No changes from previously documented assessment. See triage assessment. 3 15:00 Reassessment: Patient appears in no apparent distress at this time. Patient and/or 3 family updated on plan of care and expected duration. Pain level reassessed. Patient is alert, oriented x 3, equal unlabored respirations, skin warm/dry/pink. 16:00 Reassessment: Patient appears in no apparent distress at this time. Patient and/or 3 family updated on plan of care and expected duration. Pain level reassessed. Patient is alert, oriented x 3, equal unlabored respirations, skin warm/dry/pink. 17:00 Reassessment: Patient appears in no apparent distress at this time. Patient and/or 3 family updated on plan of care and expected duration. Pain level reassessed. Patient is alert, oriented x 3, equal unlabored respirations, skin warm/dry/pink. 18:00 Reassessment: Patient appears in no apparent distress at this time. Patient and/or eh3 family updated on plan of care and expected duration. Pain level reassessed. Patient is alert, oriented x 3, equal unlabored respirations, skin warm/dry/pink. 19:00 Reassessment: Patient appears in no apparent distress at this time. Patient and/or eh3 family updated on plan of care and expected duration. Pain level reassessed. Patient is alert, oriented x 3, equal unlabored respirations, skin warm/dry/pink. 20:30 Reassessment: Attempted to call report to 4th floor, nurse busy and will call back. 3 21:00 Reassessment: Attempted to call report to 4th floor, no answer. eh3 Vital Signs: 13:04 BP 101 / 64; Pulse 97; Resp 18; Temp 97.5; Pulse Ox 97% on R/A; Weight 136.08 kg; iw Height 6 ft. 2 in. (187.96 cm); Pain 8/10; 13:30 BP 104 / 59; Pulse 90; Resp 16; Pulse Ox 97% on R/A; eh3 15:00 BP 118 / 71; Pulse 84; Resp 20; Pulse Ox 98% on R/A; eh3 16:00 BP 113 / 68; Pulse 83; Resp 18; Pulse Ox 98% on R/A; eh3 17:00 BP 115 / 73; Pulse 86; Resp 14; Temp 98.0(O); Pulse Ox 98% on R/A; eh3 18:00 BP 111 / 65; Pulse 89; Resp 20; Pulse Ox 97% on R/A; eh3 19:00 BP 115 / 64; Pulse 90; Resp 20; Pulse Ox 97% on R/A; eh3 13:04 Body Mass Index 38.52 (136.08 kg, 187.96 cm) iw ED Course: 12:17 Patient arrived in ED. as 12:18 James Rg MD is Private Physician. as 13:06 Triage completed. iw 13:06 Arm band placed on. iw 13:17 Rico Storey PA is PHCP. cp 13:17 Raffaele Ramirez MD is Attending Physician. cp 13:20 Helene Mojica, TIARRA is Primary Nurse. eh3 13:30 Patient has correct armband on for positive identification. Bed in low position. Call eh3 light in reach. Side rails up X2. Adult w/ patient. Client placed on continuous cardiac and pulse oximetry monitoring. NIBP monitoring applied. Door closed. Noise minimized. Warm blanket given. 14:27 US Extremity Venous Unilateral Ltd In Process Unspecified. EDMS 14:27 US LE Artery Uni Ltd In Process Unspecified. EDMS 14:55 XRAY Chest (1 view) In Process Unspecified. EDMS 15:00 Inserted saline lock: 20 gauge in left antecubital area, using aseptic technique. Blood eh3 collected. 16:53 James Rg MD is Hospitalizing Provider. cp 19:00 No provider procedures requiring assistance completed. Patient admitted, IV remains in eh3 place. 21:39 SARS RAPID Sent. eh3 Administered Medications: 15:00 Drug: fentaNYL (PF) 25 mcg Route: IVP; Site: left antecubital; 3 16:21 Follow up: Response: Pain is unchanged, physician notified 3 17:00 Drug: Cefepime 2 grams Route: IVPB; Rate: 200 ml/hr; Infused Over: 30 mins; Site: left 3 antecubital; 17:30 Follow up: IV Status: Completed infusion; IV Intake: 100ml 3 17:00 Drug: morphine 4 mg Route: IVP; Infused Over: 4 mins; Site: left antecubital; 3 17:44 Follow up: Response: Pain is unchanged, physician notified 3 17:30 Drug: vancoMYCIN 1 grams Route: IVPB; Infused Over: 2 hrs; Site: left antecubital; 3 21:39 Follow up: Response: No adverse reaction; IV Status: Completed infusion; IV Intake: eh3 250ml Medication: 19:00 VIS not applicable for this client. 3 Intake: 17:30 IV: 100ml; Total: 100ml. 3 21:39 IV: 250ml; Total: 350ml. 3 Outcome: 16:54 Decision to Hospitalize by Provider. cp 19:00 Admitted to ER Hold. Please see [facility] for further documentation. 3 19:00 Condition: stable 19:00 Instructed on the need for admit. 21:49 Admitted to Tele accompanied by tech, via wheelchair, room 402, with chart, Report eh3 called to Manny 21:58 Patient left the ED. 3 Signatures: Dispatcher [employer] Zayda Montelongo Irene, RN RN iw Page, Corey, PA PA cp Hall, Erin, RN RN 3 Corrections: (The following items were deleted from the chart) 13:07 13:04 Pulse 97bpm; Resp 18bpm; Pulse Ox 97% RA; Temp 97.5F; 136.08 kg; Height 6 ft. 2 iw in.; BMI: 38.5; Pain 8/10; iw
[2022-09-25] MEDS ORDERED: MORPHINE 4 MG/ML SYR ONE (17:02)
[2022-09-25] MEDS ORDERED: D50W 25 GM/50 ML SYRINGE IV PRN (17:47)
[2022-09-25] MEDS ORDERED: GLUCAGON 1 MG/VIAL IM PRN (17:47)
[2022-09-25] MEDS ORDERED: ONDANSETRON 4 MG/2 ML VIAL IV PRN (17:48)
[2022-09-25] MEDS ORDERED: D10W 125 ML IV PRN (18:26)
--- NOTE | 2022-09-25 19:18 | P.HP ---
Certification for Inpatient Patient admitted to: Inpatient With expected LOS: >2 Midnights Practitioner: I am a practitioner with admitting privileges, knowledge of patient current condition, hospital course, and medical plan of care. Services: Services provided to patient in accordance with Admission requirements found in Title 42 Section 412.3 of the Code of Federal Regulations Patient History Date of Service: 09/25/22 Reason for admission: PAIN L LEG History of Present Illness: MR. SPENCE IS OBESE DIABETIC WITH CORONARY ARTERY DISEASE, CHRONIC BACK PAIN AND NARCOTIC DEPENDENCY FOR PAIN COMES IN WITH L LEG PAIN, REDNESS FOR A FEW DAYS. HE HAS CELLULITIS AND IS BEING ADMITTED FOR IT. HE HAS NO CHEST PAIN. Allergies No Known Allergies Allergy (Verified 01/17/19 20:21) Home medications list reviewed: Yes Home Medications: Hydrocodone 10/APAP 325 [Tennyson 10/325*] 1 tab PO TID 09/02/19 Aspirin 81 mg PO DAILY 09/03/19 Cholecalciferol (Vitamin D3) [Vitamin D3] 2,000 unit PO DAILY 09/03/19 Finasteride [Proscar*] 5 mg PO DAILY 09/03/19 Glyburide/Metformin HCl [Glucovance 5-500 mg Tablet] 1 tab PO BID 09/03/19 Tamsulosin [Flomax*] 0.4 mg PO DAILY 09/03/19 Pantoprazole [Protonix Tab*] 40 mg PO DAILY 30 Days #30 tab 12/01/21 Nitroglycerin 0.4 mg SL Q4H #25 08/12/22 - Past Medical/Surgical History Diabetic: Yes -: CAD -: NIDDM -: obstructive sleep apnea -: Chronic back pain -: Hyperlipedemia -: Heart cath/with stents x3 -: laminectomy -: coronary artery bypass graft - Family History Family History: Reviewed- Non-Contributory - Family History Brother -: Heart disease - Social History Alcohol use: No CD- Drugs: No Caffeine use: No Review of Systems 10-point ROS is otherwise unremarkable General: Weakness Musculoskeletal: As per HPI Integumentary: As per HPI Physical Examination - Physical Exam General: Alert, Oriented x3, Mild distress, Moderate distress, Obese HEENT: Atraumatic, PERRLA, Mucous membr. moist/pink, EOMI, Sclerae nonicteric Neck: Supple, 2+ carotid pulse no bruit, No LAD, Without JVD or thyroid abnormality Respiratory: Clear to auscultation bilaterally, Normal air movement Cardiovascular: Regular rate/rhythm, Normal S1 S2, Edema Gastrointestinal: Normal bowel sounds, No tenderness Musculoskeletal: No tenderness Integumentary: No rashes, Tenderness/swelling (L LEG BELOW KNEE TO ANKLE ANTERIOR.) Neurological: Normal gait, Normal speech, Normal strength at 5/5 x4 extr, Normal tone, Normal affect Lymphatics: No axilla or inguinal lymphadenopathy - Studies Laboratory Data (last 24 hrs) 09/25/22 15:11: PT 13.8 H, INR 1.25 09/25/22 15:11: WBC 11.20 H, Hgb 14.0, Hct 42.0, Plt Count 146 L 09/25/22 15:11: Sodium 134 L, Potassium 3.7, BUN 22 H, Creatinine 1.29, Glucose 284 H, Magnesium 1.9, Total Bilirubin 0.8, AST 18, ALT 25, Alkaline Phosphatase 59 Assessment and Plan - Problems (Diagnosis) (1) Cellulitis of leg without foot, left Current Visit: Yes Status: Acute Plan: VANCOMYCIN IV. THIS CAN BE MRSA RELATED THERE IS NO DRAINAGE TO CULTURE AGGRESSIVE NATURE OF THE CELLULITIS MAKES ME THINK OF MRSA. HE ALREADY HAS MANY QUESTIONS FROM FAMILY. WHY CELLULITIS? WHY HIM? WHY HE IS NOT HUNGRY? ETC. I EXPLAINED THAT RISK OF SUCH CELLULITIS IS OBESITY AND VENOUS STASIS RELATED FLUID COLLECTION. HE SAYS HE IS OBESE FOR MANY YEARS, WHY NOW? ONCE AGAIN OBESE, DIABETIC AND ELDERLY PATIENTS WITH VENOUS STASIS ARE HIGH RISK FOR CELLULITIS. PROGNOSIS GUARDED. (2) Venous stasis Current Visit: Yes Status: Acute (3) Diabetes Onset Date: 11/28/17 Current Visit: No Status: Chronic Qualifiers: (4) Obesity Onset Date: 11/28/17 Current Visit: No Status: Chronic (5) Narcotic dependence Current Visit: Yes Status: Chronic Plan: HE HAS BEEN ON NORCO FOR YEARS. HE HAS BEEN TO MANY PAIN DOCTORS AND CHANGED THEM. THIS IS WHY FENTANLY IV IS NOT WORKING. HE SAYS "GIVE ME 75 MCG OF FENTANYL" WE WILL TRY MORPHINE INSTEAD. LOVENOX SC FOR DVT PX. - Advance Directives Does patient have a Living Will: No Does patient have a Durable POA for Healthcare: No
[2022-09-25 20:59] LABS: SARS-CoV-2 Antigen Rapid Res Negative (Negative)
[2022-09-25] MEDS ORDERED: CEFTRIAXONE 1,000 MG in NA CHLORIDE 0.9% 50 ML IVPB SCH (21:00)
[2022-09-25] MEDS ORDERED: VANCOMYCIN 1 GM in NA CHLORIDE 0.9% 250 ML IVPB SCH (21:30)
[2022-09-25] MEDS: INSULIN -REGULAR HUMAN 50 UNIT/0.5 ML ML SQ SCH (23:25)
[2022-09-25] MEDS: MORPHINE 4 MG/ML SYR IV PRN (23:33)
[2022-09-26] MEDS: MORPHINE 4 MG/ML SYR IV PRN ×5 (03:44→20:35)
[2022-09-26 06:24] LABS: Hematocrit 38.3 % (39.6-49.0); Lymphocytes % 9.4 % (15.3-44.8); MCV 87.7 fL (80-100); MPV 9.5 fL (7.6-11.3); RBC Red Blood Cell Count 4.36 M/uL (4.33-5.43)
[2022-09-26 06:48] LABS: Potassium 3.7 mmol/L (3.5-5.1)
[2022-09-26] MEDS ORDERED: CEFTRIAXONE 1,000 MG in NA CHLORIDE 0.9% 50 ML IVPB SCH (09:00)
[2022-09-26] MEDS: INSULIN -REGULAR HUMAN 50 UNIT/0.5 ML ML SQ SCH ×4 (09:47→20:41)
--- NOTE | 2022-09-26 10:25 | P.PN ---
Subjective Date of Service: 09/26/22 Chief Complaint: PAIN L LEG Subjective: No new changes, Improving PAIN CONTNUES ABOUT THE SAME. HE NEEDS HIGH DOSE OF NARCOTICS HE HAS BEEN ON HYDROCODON FOR YEARS. Review of Systems 10-point ROS is otherwise unremarkable General: Weakness Cardiovascular: As per HPI Physical Examination - Vital Signs Temperature: 98.5 F Blood Pressure: 120/69 Pulse: 95 Respirations: 18 Pulse Ox (%): 97 - Physical Exam General: Oriented x3, Moderate distress, Obese HEENT: Atraumatic, PERRLA, EOMI Neck: Supple, JVD not distended Respiratory: Clear to auscultation bilaterally, Normal air movement Cardiovascular: Regular rate/rhythm, Normal S1 S2, Edema Gastrointestinal: Normal bowel sounds, No tenderness Musculoskeletal: No tenderness Integumentary: No rashes, Tenderness/swelling (L LEG , PROXIMAL IMPROVED. ), Erythema Neurological: Normal speech, Normal tone, Normal affect Lymphatics: No axilla or inguinal lymphadenopathy - Studies Laboratory Data (last 24 hrs) 09/25/22 15:11: PT 13.8 H, INR 1.25 09/25/22 15:11: WBC 11.20 H, Hgb 14.0, Hct 42.0, Plt Count 146 L 09/25/22 15:11: Sodium 134 L, Potassium 3.7, BUN 22 H, Creatinine 1.29, Glucose 284 H, Magnesium 1.9, Total Bilirubin 0.8, AST 18, ALT 25, Alkaline Phosphatase 59 Medications List Reviewed: Yes Assessment And Plan - Current Problems (Diagnosis) (1) Cellulitis of leg without foot, left Current Visit: Yes Status: Acute Plan: VANCOMYCIN IV. THIS CAN BE MRSA RELATED THERE IS NO DRAINAGE TO CULTURE AGGRESSIVE NATURE OF THE CELLULITIS MAKES ME THINK OF MRSA. HE ALREADY HAS MANY QUESTIONS FROM FAMILY. WHY CELLULITIS? WHY HIM? WHY HE IS NOT HUNGRY? ETC. I EXPLAINED THAT RISK OF SUCH CELLULITIS IS OBESITY AND VENOUS STASIS RELATED FLUID COLLECTION. HE SAYS HE IS OBESE FOR MANY YEARS, WHY NOW? ONCE AGAIN OBESE, DIABETIC AND ELDERLY PATIENTS WITH VENOUS STASIS ARE HIGH RISK FOR CELLULITIS. PROGNOSIS GUARDED. IMPROVED SOME. CONTINUE VANCOMYCIN . STOP ROCEPHIN I SUSPECT MRSA CLINICALLY AND VANCO WILL COVER. (2) Venous stasis Current Visit: Yes Status: Acute (3) Diabetes Onset Date: 11/28/17 Current Visit: No Status: Chronic Qualifiers: Diabetes mellitus type: type 2 (4) Obesity Onset Date: 11/28/17 Current Visit: No Status: Chronic (5) Narcotic dependence Current Visit: Yes Status: Chronic Plan: HE HAS BEEN ON NORCO FOR YEARS. HE HAS BEEN TO MANY PAIN DOCTORS AND CHANGED THEM. THIS IS WHY FENTANLY IV IS NOT WORKING. HE SAYS "GIVE ME 75 MCG OF FENTANYL" WE WILL TRY MORPHINE INSTEAD. LOVENOX SC FOR DVT PX.
[2022-09-26] MEDS: VANCOMYCIN 2 GM in NA CHLORIDE 0.9% 500 ML IVPB SCH (14:24)
[2022-09-26] MEDS ORDERED: ENOXAPARIN 30 MG/0.3 ML SQ SCH (17:00)
[2022-09-26] MEDS: ENOXAPARIN 40 MG/0.4 ML SQ SCH (18:33)
[2022-09-27] MEDS: MORPHINE 4 MG/ML SYR IV PRN ×6 (00:32→20:53)
[2022-09-27 05:52] VITALS: BMI 38.9
[2022-09-27] MEDS: INSULIN -REGULAR HUMAN 50 UNIT/0.5 ML ML SQ SCH ×4 (08:15→20:55)
[2022-09-27] MEDS: FINASTERIDE 5 MG TAB PO SCH (08:15)
[2022-09-27] MEDS: lisinopriL 10 MG TAB PO SCH (08:15)
[2022-09-27] MEDS: ASPIRIN EC 81 MG TAB PO SCH (08:15)
[2022-09-27] MEDS: hydroCHLOROthiazide 12.5 MG CAP PO SCH (08:16)
[2022-09-27] MEDS: ROSUVASTATIN 10 MG TAB PO SCH (08:16)
[2022-09-27] MEDS: METFORMIN HCL 500 MG TAB PO SCH ×2 (08:16→16:36)
[2022-09-27] MEDS ORDERED: HOME MED 1 EA UNK (Lisinopril/Hydrochlorothiazide [Lisinopril-Hctz 10-12.5 Mg Tab] Tablet) PO SCH (09:00)
[2022-09-27] MEDS: VANCOMYCIN 2 GM in NA CHLORIDE 0.9% 500 ML IVPB SCH ×2 (10:22→20:57)
--- NOTE | 2022-09-27 12:48 | P.PN ---
Subjective Date of Service: 09/27/22 Chief Complaint: PAIN L LEG Subjective: Improving PAIN CONTNUES ABOUT THE SAME. HE NEEDS HIGH DOSE OF NARCOTICS HE HAS BEEN ON HYDROCODON FOR YEARS. HE IS BETTER BUT ASKS FOR MORE PAIN MEDS, DOUBLE DOSE OF MORPHINE. Review of Systems 10-point ROS is otherwise unremarkable Physical Examination - Vital Signs Temperature: 98.3 F Blood Pressure: 146/80 Pulse: 83 Respirations: 16 Pulse Ox (%): 99 - Physical Exam General: Oriented x3, Mild distress, Obese HEENT: Atraumatic, PERRLA, EOMI Neck: Supple, JVD not distended Respiratory: Clear to auscultation bilaterally, Normal air movement Cardiovascular: Regular rate/rhythm, Normal S1 S2 Gastrointestinal: Normal bowel sounds, No tenderness Musculoskeletal: No tenderness Integumentary: Tenderness/swelling (L LEG, TOP HALF HAS CLEARED , LOWER HALF STILL HAS CELLULITIS ), Erythema Neurological: Normal speech, Normal tone, Normal affect Lymphatics: No axilla or inguinal lymphadenopathy - Studies Medications List Reviewed: Yes Assessment And Plan - Current Problems (Diagnosis) (1) Cellulitis of leg without foot, left Current Visit: Yes Status: Acute Plan: VANCOMYCIN IV. THIS CAN BE MRSA RELATED THERE IS NO DRAINAGE TO CULTURE AGGRESSIVE NATURE OF THE CELLULITIS MAKES ME THINK OF MRSA. HE ALREADY HAS MANY QUESTIONS FROM FAMILY. WHY CELLULITIS? WHY HIM? WHY HE IS NOT HUNGRY? ETC. I EXPLAINED THAT RISK OF SUCH CELLULITIS IS OBESITY AND VENOUS STASIS RELATED FLUID COLLECTION. HE SAYS HE IS OBESE FOR MANY YEARS, WHY NOW? ONCE AGAIN OBESE, DIABETIC AND ELDERLY PATIENTS WITH VENOUS STASIS ARE HIGH RISK FOR CELLULITIS. PROGNOSIS GUARDED. IMPROVED SOME. CONTINUE VANCOMYCIN . STOP ROCEPHIN I SUSPECT MRSA CLINICALLY AND VANCO WILL COVER. CONT VANCOMYCIN HE SHOULD NEED MORE THAN 4 MG OF MSO4 EVERY 4 HOURS. (2) Venous stasis Current Visit: Yes Status: Acute (3) Diabetes Onset Date: 11/28/17 Current Visit: No Status: Chronic Qualifiers: Diabetes mellitus type: type 2 (4) Obesity Onset Date: 11/28/17 Current Visit: No Status: Chronic (5) Narcotic dependence Current Visit: Yes Status: Chronic Plan: HE HAS BEEN ON NORCO FOR YEARS. HE HAS BEEN TO MANY PAIN DOCTORS AND CHANGED THEM. THIS IS WHY FENTANLY IV IS NOT WORKING. HE SAYS "GIVE ME 75 MCG OF FENTANYL" WE WILL TRY MORPHINE INSTEAD. LOVENOX SC FOR DVT PX.
--- NOTE | 2022-09-27 15:01 | EKG ---
Test Date: 2022-09-25 Test Time: 14:36:19 Die Inspector: ZAHRA MEASUREMENT RESULTS: Intervals: Rate: 82 [place]: 160 QRSD: 172 QT: 434 QTc: 507 [place]: P: 12 [place]: 160 QRS: 152 T: 90 INTERPRETIVE STATEMENTS: Normal sinus rhythm with sinus arrhythmia Right bundle branch block Left posterior fascicular block Bifascicular block T wave abnormality, consider lateral ischemia Abnormal ECG Compared to ECG 08/11/2022 15:15:43 Left posterior fascicular block now present Bifascicular block now present T-wave abnormality now present Possible ischemia now present Ventricular premature complex(es) no longer present Myocardial infarct finding no longer present Electronically Signed On 09-27-22 14:56:34 CAREER SERVICES COORDINATOR by Master Noel
[2022-09-27] MEDS: ENOXAPARIN 40 MG/0.4 ML SQ SCH (16:36)
[2022-09-27] MEDS: HYDROCODONE/APAP 10/325 TAB PO PRN (18:32)
[2022-09-27] MEDS: TAMSULOSIN 0.4 MG SR CAP PO SCH (20:53)
[2022-09-28] MEDS: MORPHINE 4 MG/ML SYR IV PRN ×5 (00:59→21:56)
[2022-09-28] MEDS: ROSUVASTATIN 10 MG TAB PO SCH (09:04)
[2022-09-28] MEDS: INSULIN -REGULAR HUMAN 50 UNIT/0.5 ML ML SQ SCH ×4 (09:04→21:56)
[2022-09-28] MEDS: METFORMIN HCL 500 MG TAB PO SCH ×2 (09:04→16:48)
[2022-09-28] MEDS: ASPIRIN EC 81 MG TAB PO SCH (09:04)
[2022-09-28] MEDS: lisinopriL 10 MG TAB PO SCH (09:05)
[2022-09-28] MEDS: hydroCHLOROthiazide 12.5 MG CAP PO SCH (09:05)
[2022-09-28] MEDS: FINASTERIDE 5 MG TAB PO SCH (09:06)
[2022-09-28] MEDS: VANCOMYCIN 2 GM in NA CHLORIDE 0.9% 500 ML IVPB SCH ×2 (09:06→21:15)
[2022-09-28] MEDS: ENOXAPARIN 40 MG/0.4 ML SQ SCH (16:48)
[2022-09-28] MEDS: TAMSULOSIN 0.4 MG SR CAP PO SCH (21:15)
--- NOTE | 2022-09-28 21:44 | P.PN ---
Subjective Date of Service: 09/28/22 Chief Complaint: PAIN L LEG Subjective: Improving PAIN CONTNUES ABOUT THE SAME. HE NEEDS HIGH DOSE OF NARCOTICS HE HAS BEEN ON HYDROCODON FOR YEARS. HE IS BETTER BUT ASKS FOR MORE PAIN MEDS, DOUBLE DOSE OF MORPHINE. HE IS BETTER, PAIN HAS IMPROVED. HE WANTS BIGGER WALKER. Review of Systems 10-point ROS is otherwise unremarkable General: Weakness Physical Examination - Vital Signs Temperature: 96.8 F Blood Pressure: 153/79 Pulse: 82 Respirations: 18 Pulse Ox (%): 96 - Physical Exam General: Oriented x3, Mild distress, Moderate distress, Obese HEENT: Atraumatic, PERRLA, EOMI Neck: Supple, JVD not distended Respiratory: Clear to auscultation bilaterally, Normal air movement Cardiovascular: Regular rate/rhythm, Normal S1 S2 Gastrointestinal: Normal bowel sounds, No tenderness Musculoskeletal: No tenderness Integumentary: Tenderness/swelling, Erythema, Warmth (DOWN TO LOWER HALF OF LEG.) Neurological: Normal speech, Normal tone, Normal affect Lymphatics: No axilla or inguinal lymphadenopathy - Studies Medications List Reviewed: Yes Assessment And Plan - Current Problems (Diagnosis) (1) Cellulitis of leg without foot, left Current Visit: Yes Status: Acute Plan: VANCOMYCIN IV. THIS CAN BE MRSA RELATED THERE IS NO DRAINAGE TO CULTURE AGGRESSIVE NATURE OF THE CELLULITIS MAKES ME THINK OF MRSA. HE ALREADY HAS MANY QUESTIONS FROM FAMILY. WHY CELLULITIS? WHY HIM? WHY HE IS NOT HUNGRY? ETC. I EXPLAINED THAT RISK OF SUCH CELLULITIS IS OBESITY AND VENOUS STASIS RELATED FLUID COLLECTION. HE SAYS HE IS OBESE FOR MANY YEARS, WHY NOW? ONCE AGAIN OBESE, DIABETIC AND ELDERLY PATIENTS WITH VENOUS STASIS ARE HIGH RISK FOR CELLULITIS. PROGNOSIS GUARDED. IMPROVED SOME. CONTINUE VANCOMYCIN . STOP ROCEPHIN I SUSPECT MRSA CLINICALLY AND VANCO WILL COVER. CONT VANCOMYCIN HE SHOULD NEED MORE THAN 4 MG OF MSO4 EVERY 4 HOURS. IV ABX CONTINUE HE IS IMPROVING. (2) Venous stasis Current Visit: Yes Status: Acute (3) Diabetes Onset Date: 11/28/17 Current Visit: No Status: Chronic Qualifiers: Diabetes mellitus type: type 2 (4) Obesity Onset Date: 11/28/17 Current Visit: No Status: Chronic (5) Narcotic dependence Current Visit: Yes Status: Chronic Plan: HE HAS BEEN ON NORCO FOR YEARS. HE HAS BEEN TO MANY PAIN DOCTORS AND CHANGED THEM. THIS IS WHY FENTANLY IV IS NOT WORKING. HE SAYS "GIVE ME 75 MCG OF FENTANYL" WE WILL TRY MORPHINE INSTEAD. LOVENOX SC FOR DVT PX.
[2022-09-29] MEDS: MORPHINE 4 MG/ML SYR IV PRN ×3 (01:25→19:31)
[2022-09-29] MEDS: HYDROCODONE/APAP 10/325 TAB PO PRN ×4 (02:48→23:31)
[2022-09-29] MEDS: METFORMIN HCL 500 MG TAB PO SCH ×2 (08:54→17:36)
[2022-09-29] MEDS: hydroCHLOROthiazide 12.5 MG CAP PO SCH (08:54)
[2022-09-29] MEDS: ROSUVASTATIN 10 MG TAB PO SCH (08:54)
[2022-09-29] MEDS: lisinopriL 10 MG TAB PO SCH (08:54)
[2022-09-29] MEDS: FINASTERIDE 5 MG TAB PO SCH (08:54)
[2022-09-29] MEDS: ASPIRIN EC 81 MG TAB PO SCH (08:54)
[2022-09-29] MEDS: INSULIN -REGULAR HUMAN 50 UNIT/0.5 ML ML SQ SCH ×4 (08:55→20:46)
[2022-09-29 09:11] LABS: Absolute Lymphocytes (CBC) 1.4 K/uL (0.7-4.9); Hematocrit 38.5 % (39.6-49.0); Lymphocytes % 27.8 % (15.3-44.8); MCV 87.8 fL (80-100); MPV 8.5 fL (7.6-11.3); RBC Red Blood Cell Count 4.39 M/uL (4.33-5.43)
[2022-09-29 09:21] LABS: Magnesium 1.8 mg/dL (1.6-2.4); Potassium 3.4 mmol/L (3.5-5.1)
[2022-09-29] MEDS: VANCOMYCIN 2 GM in NA CHLORIDE 0.9% 500 ML IVPB SCH ×2 (11:10→20:45)
[2022-09-29] MEDS: ENOXAPARIN 40 MG/0.4 ML SQ SCH (17:36)
--- NOTE | 2022-09-29 17:51 | P.PN ---
Subjective Date of Service: 09/29/22 Chief Complaint: LEG PAIN . Subjective: Improving PAIN CONTNUES ABOUT THE SAME. HE NEEDS HIGH DOSE OF NARCOTICS HE HAS BEEN ON HYDROCODON FOR YEARS. HE IS BETTER BUT ASKS FOR MORE PAIN MEDS, DOUBLE DOSE OF MORPHINE. HE IS BETTER, PAIN HAS IMPROVED. HE WANTS BIGGER WALKER. LEG PAIN IS THERE. NO FEVER. REDNESS, TENDERNESS LOT BETTER. Review of Systems 10-point ROS is otherwise unremarkable General: Weakness, Malaise Cardiovascular: Edema, As per HPI Physical Examination - Vital Signs Temperature: 97.1 F Blood Pressure: 130/87 Pulse: 82 Respirations: 18 Pulse Ox (%): 97 - Physical Exam General: Oriented x3, Mild distress, Obese HEENT: Atraumatic, PERRLA, EOMI Neck: Supple, JVD not distended Respiratory: Clear to auscultation bilaterally, Normal air movement Cardiovascular: Regular rate/rhythm, Normal S1 S2, Edema (R LEG TENDERNES. ERYTHEMA. LOT BETTER BUT HIS PAIN TOLERANCE IS POOR.) Gastrointestinal: Normal bowel sounds, No tenderness Musculoskeletal: No tenderness Integumentary: No rashes Neurological: Normal speech, Normal tone, Normal affect Lymphatics: No axilla or inguinal lymphadenopathy - Studies Medications List Reviewed: Yes Assessment And Plan - Current Problems (Diagnosis) (1) Cellulitis of leg without foot, left Current Visit: Yes Status: Acute Plan: IV ABX CONTINUE HE IS IMPROVING. Iv vanco. CONT MEDS. STABLE. HE SHOULD GO TO IF HE IS REFUSING SO FAR. (2) Venous stasis Current Visit: Yes Status: Acute (3) Diabetes Onset Date: 11/28/17 Current Visit: No Status: Chronic Qualifiers: Diabetes mellitus type: type 2 (4) Obesity Onset Date: 11/28/17 Current Visit: No Status: Chronic (5) Narcotic dependence Current Visit: Yes Status: Chronic Plan: HE HAS BEEN ON NORCO FOR YEARS. HE HAS BEEN TO MANY PAIN DOCTORS AND CHANGED THEM. THIS IS WHY FENTANLY IV IS NOT WORKING. HE SAYS "GIVE ME 75 MCG OF FENTANYL" WE WILL TRY MORPHINE INSTEAD. LOVENOX SC FOR DVT PX.
[2022-09-29] MEDS: TAMSULOSIN 0.4 MG SR CAP PO SCH (20:45)
[2022-09-30] MEDS: MORPHINE 4 MG/ML SYR IV PRN (01:14)
[2022-09-30 08:55] LABS: Absolute Lymphocytes (CBC) 1.3 K/uL (0.7-4.9); Hematocrit 41.6 % (39.6-49.0); Lymphocytes % 24.4 % (15.3-44.8); MCV 87.7 fL (80-100); MPV 8.2 fL (7.6-11.3); RBC Red Blood Cell Count 4.74 M/uL (4.33-5.43)
[2022-09-30 09:11] LABS: Magnesium 1.9 mg/dL (1.6-2.4); Potassium 3.8 mmol/L (3.5-5.1)
[2022-09-30] MEDS: INSULIN -REGULAR HUMAN 50 UNIT/0.5 ML ML SQ SCH ×2 (09:44→11:42)
[2022-09-30] MEDS: HYDROCODONE/APAP 10/325 TAB PO PRN (09:44)
[2022-09-30] MEDS: lisinopriL 10 MG TAB PO SCH (09:46)
[2022-09-30] MEDS: METFORMIN HCL 500 MG TAB PO SCH (09:46)
[2022-09-30] MEDS: ASPIRIN EC 81 MG TAB PO SCH (09:46)
[2022-09-30] MEDS: FINASTERIDE 5 MG TAB PO SCH (09:47)
[2022-09-30] MEDS: hydroCHLOROthiazide 12.5 MG CAP PO SCH (09:47)
[2022-09-30] MEDS: ROSUVASTATIN 10 MG TAB PO SCH (09:50)
[2022-09-30] MEDS: VANCOMYCIN 2 GM in NA CHLORIDE 0.9% 500 ML IVPB SCH (09:52)
[2022-09-30 10:24] VITALS: O2SAT 93
[2022-09-30 12:53] VITALS: BP 167/88; TEMP 96.7
[2022-09-30] MEDS ORDERED: VANCOMYCIN 1.75 GM in NA CHLORIDE 0.9% 500 ML IVPB SCH (21:00)
== END 2022-09-30 14:43 | disposition home or self-care (01) | DRG 603 ==
LOC: ER 12:16 → ERHOLD 17:49 → 4TH 21:40
PROVIDERS: ADMIT Internal Medicine; ATTEND Internal Medicine
DX: L03.116 Cellulitis of left lower limb (principal); F11.20 Opioid dependence, uncomplicated; G89.29 Other chronic pain; M54.9 Dorsalgia, unspecified; I10 Essential (primary) hypertension; E11.65 Type 2 diabetes mellitus with hyperglycemia; E78.5 Hyperlipidemia, unspecified; I87.8 Other specified disorders of veins; I25.10 Atherosclerotic heart disease of native coronary artery without angina pectoris; E66.9 Obesity, unspecified; I25.2 Old myocardial infarction; Z95.1 Presence of aortocoronary bypass graft; Z95.5 Presence of coronary angioplasty implant and graft; Z68.38 Body mass index [BMI] 38.0-38.9, adult; Z79.82 Long term (current) use of aspirin; Z79.84 Long term (current) use of oral hypoglycemic drugs; Z79.899 Other long term (current) drug therapy; Z20.822 Contact with and (suspected) exposure to COVID-19
CPT/HCPCS: 36415; 71045; 80048; 80076; 80202; 82947; 83605; 83735; 83880; 84145; 84484; 85025; 85610; 87040; 87811; 93005; 93926; 93971; 96365; 96366; 96367; 96375; 99285; J0692; J1650; J1815; J3010; J3370; J7040; J7050

== ENCOUNTER 2023-03-20 15:39 | Observation (INO) | payer OTHER ==
--- OUTSIDE RECORDS SUMMARY | 2023-03-20 15:44 | XMS REPORT | Continuity of Care Document ---
:1955 Author Organization [facility] t Address [address] [place] [address] Care Team Providers Name Role Phone REHAN HILL Primary Care Physician Unavailable JANIS PIERRE Attending Clinician Unavailable ORESTES MOJICA Attending Clinician Unavailable Orestes Mojica PA-C Attending Clinician Doctor Unassigned, [place] Attending Clinician Unavailable Vaccine, [facility] Attending Clinician Unavailable Reece Reyes DO Attending Clinician REECE REYES Attending Clinician Unavailable DORETHA MENDOZA Attending Clinician Unavailable DI ORTIZ Attending Clinician Unavailable JANIS PIERRE Admitting Clinician Unavailable ORESTES MOJICA Admitting Clinician Unavailable DI ORTIZ Admitting Clinician Unavailable Payers Payer Name Policy Type Policy Number Effective Date Expiration Date S leonila CALLIE/[facility] [id number] 2022 MEDICARE GOLD PPO 00:00:00 CSNP AETNA MEDICARE ADV [id number] 2017 00:00:00 Problems Condition Condition Condition Status Onset Resolution Last Treating Co mments Source Name Details Category Date Date Treatment Clinician Date Atypical Atypical Disease Active Unive rs chest pain chest pain 6-14 it y of 00:00: [address] Branch Obesity Obesity Disease Active Univers (BMI (BMI 6-14 ity of 30-39.9) 30-39.9) 00:00: [place] 00 Medical Branch KYLE KYLE Disease Active Univers (dyspnea (dyspnea 6-14 ity of on on 00:00: [place] exertion) exertion) 00 [facility] Branch Dyslipidem Dyslipidem Disease Active U nivers ia ia 6-14 ity of 00:00: [place] 00 Medical Branch PAF PAF Disease Active Univers (paroxysma (paroxysma 6-14 it y of l atrial l atrial 00:00: [place] fibrillati fibrillati 00 Me dical on): Noted on): Noted Br anch post op post op CABG CABG S/P CABG x S/P CABG x Disease [facility] 00 [place] Chronic Chronic Disease Active [facility] pain pain [facility] 00 [place] Acute Acute Disease Active [facility] blood loss blood loss 2-13 Ashley kes anemia anemia 00:00: Medical 00 [place] Acute Acute Disease Active [facility] postoperat postoperat 2-13 [facility] kes marti pain marti pain 00:00: Medica l 00 [place] Hyperglyce Hyperglyce Disease Active [facility] chinyere chinyere 2-13 [facility]: Medical 00 [place] Borderline Borderline Disease Active [facility] diabetes diabetes 2-13 [facility] Medical 00 [place] Thrombocyt Thrombocyt Disease Recurre [facility] openia openia nce 2-13 [facility]: Medical 00 Center Acute Acute Disease Recurre [facility] respirator respirator nce 2-13 [facility] kes y y 00:00: Medical insufficie insufficie 00 Ce nter ncy, ncy, postoperat postoperat marti marti CAD CAD Disease Active [facility] (coronary (coronary 2-13 [facility] s artery artery 00:00: Medical disease) disease) 00 Center Coronary Coronary Disease Active Unive rs atheroscle atheroscle 2-13 it y of rosis rosis 00:00: [place] 00 Medical Branch Other Other Disease Active Univers chest pain chest pain 7-19 it y of 00:00: [place] 00 Medical Branch Allergies, Adverse Reactions, Alerts Allergy Allergy Status Severity Reaction(s) Onset Inactive Treating Comm ents Source Name Type Date Date Clinician NO KNOWN Drug Active Radha ALLERGSHERRY Class ity of S [facility] Social History Social Habit Start Date Stop Date Quantity Comments Source Exposure to 2022-11-01 2022-11-11 [facility] [place] Medical (event) Branch Alcohol intake 2017-11-29 2017-11-[address] [facility] [address] Kayla es 00:00:00 00:00:00 non-drinker of Medical Ce nter alcohol (finding) Tobacco use and 2017-11-28 2017-11-[address] [facility] [address] Ashley kes exposure 00:00:00 00:00:00 Medical Center Sex Assigned At [address] [address] Ashley kes 00:00:00 00:00:00 Medical Center Smoking Status Start Date Stop Date Source Never smoked tobacco [facility] Medications Ordered Filled Start Stop [...] hours as needed (pt states, "Q5PRN"). diazePAM Yes 10mg Take 10 mg Univers mg tablet 6-14 by mouth 2 ity of 17:39: (two) [place] 10 times Medical daily as Branch needed. LORTAB ORAL Yes None Univer s 6-14 Entered ity of 17:39: [place] 10 Medical Branch HYDROcodone Yes 1{tbl} Take 1 Un cachorro -acetaminop 6-14 tablet by ity of hen 10-325 17:39: mouth [place] mg tablet 10 every 4 Medical (four) Branch hours as needed (pt states, "Q5PRN"). diazePAM Yes 10mg Take 10 mg Univers mg tablet 6-14 by mouth 2 ity of 17:39: (two) [place] 10 times Medical daily as Branch needed. LORTAB ORAL 2018-0 Yes None Univer s 6-14 Entered ity of 17:39: [place] 10 Medical Branch HYDROcodone 2018-0 Yes 1{tbl} Take 1 Un cachorro -acetaminop 6-14 tablet by ity of hen 10-325 17:39: mouth [place] mg tablet 10 every 4 Medical (four) Branch hours as needed (pt states, "Q5PRN"). diazePAM 10 0 Yes 10mg Take 10 mg Univers mg tablet 6-14 by mouth 2 ity of 17:39: (two) [place] 10 times Medical daily as Branch needed. tamsulosin 2018-0 Yes .4mg QD Take 1 [...] total) by Center capsule mouth daily. HYDROcodone 2018-0 Yes 1{tbl} Take [address] -acetaminop 2-19 tablet by Kayla es hen (NORCO 17:49: mouth Medica l 10-325) 47 every 6 Center 10-325 mg (six) per tablet hours as needed for Pain. diazePAM 2018-0 Yes 10mg Take [address] (VALIUM) 10 2-19 by mouth Luke s MG tablet 17:49: every 6 Medic al 47 (six) Center hours as needed for Anxiety. HYDROcodone 2018-0 Yes 1{tbl} Take [address] -acetaminop 2-19 tablet by Kayla es hen (NORCO 17:49: mouth Medica l 10-325) 47 every 6 Center 10-325 mg (six) per tablet hours as needed for Pain. diazePAM 2018-0 Yes 10mg Take [address] [...] Apply to Univ ers nitrate 1 % 4-08 area(s) ity o f cream 00:00: daily. [place] [facility] econazole Yes Apply to Univ ers nitrate 1 % 4-08 area(s) ity o f cream 00:00: daily. [place] [facility] econazole Yes Apply to Univ ers nitrate 1 % 4-08 area(s) ity o f cream 00:00: daily. 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 TOP BOOSTER) SARS-COV-2 COVID-19 2022-08-16 Completed Unive rsity of NAHOMY-SUCROSE 00:00:00 [place] Medica l VACCINE 12 YRS+, Branch BIVALENT 0.3ML, IM, (PFIZER COOPER TOP BOOSTER) SARS-COV-2 COVID-19 2022-08-16 Completed Unive rsity of NAHOMY-SUCROSE 00:00:00 [place] Medica l VACCINE 12 YRS+, Branch BIVALENT 0.3ML, IM, (PFIZER COOPER TOP BOOSTER) SARS-COV-2 COVID-19 2021-01-03 Completed Unive rsity of PFIZER VACCINE 00:00:00 [facility] SARS-COV-2 COVID-19 2021-01-03 Completed Unive rsity of PFIZER VACCINE 00:00:00 [facility] SARS-COV-2 COVID-19 2021-01-03 Completed Unive rsity of PFIZER VACCINE 00:00:00 [facility] SARS-COV-2 COVID-19 2020-12-13 Completed Unive rsity of PFIZER VACCINE 00:00:00 [facility] SARS-COV-2 COVID-19 2020-12-13 Completed Unive rsity of PFIZER VACCINE 00:00:00 [facility] SARS-COV-2 COVID-19 2020-12-13 Completed Unive rsity of PFIZER VACCINE 00:00:00 [facility] Procedures Procedure Date / Time Performed Performing Clinician Sour e XR SHOULDER 2+ VW 2022-11-11 17:29:48 Orestes Mojica [facility] ASSIGNMENT OF BENEFITS 2022-11-11 16:32:24 Doctor Unassigned, No [facility] Name Medical Branch SARS-COV-2 COVID-19 2022-08-16 19:10:38 Doctor Unassigned, No [facility] [place] NAHOMY-SUCROSE VACCINE Name [facility] 12 YRS+, BIVALENT 0.3ML, IM, (PFIZER COOPER TOP BOOSTER) Encounters Start End Encounter Admission Attending Care Care Encounter Source Date/Time Date/Time Type Type Clinicians Facility Department ID 2023-02-02 Outpatient R IGNACIO [facility] ANS [id number] Univers 09:30:45 JANIS ity of [facility] 2022-11-11 2022-11-11 Outpatient R ORESTES MOJICA [facility] [id number] Univers 10:39:00 23:59:00 ity of [facility] 2022-11-11 2022-11-11 [facility] Orestes Mojica [facility] [id number] Univers 10:39:00 23:59:00 Encounter [place] [id number] ity [facility] [id number] [facility] [id number] [facility] 807 Branch 2022-11-11 2022-11-11 Orders Doctor ATUL [id number] Univers 00:00:00 00:00:00 Only Unassigned, AMIE [id number] ity of [place] [facility] [id number] [place] as [id number] [facility] [address] [place] 2022-08-16 2022-08-16 Imm/Inj Vaccine, [facility] [id number] Univers 14:00:00 14:10:00 [facility]13 [facility]2.686 [id number] Ri dical NAL 044 [facility] 2022-08-16 2022-08-16 Outpatient R AMY [facility] [id number] Univers 14:00:00 14:00:00 REECE [facility] 2021-01-03 2021-01-03 Outpatient [facility] [id number] Univers 17:10:00 [facility] 2020-12-13 Outpatient R REJI [facility] [id number] Univers 16:00:00 16:00:00 DORETHA [facility] 2020-10-30 2020-10-30 [facility] [id number] 14:49:11 23:59:00 Encounter Yahaira [place] [id number] [place] 4.2.7.2.686 [place] [id number] 2020-10-30 2020-10-30 Outpatient R [facility] [id number] Univers 00:00:00 00:00:00 ity [facility] 2020-10-30 2020-10-30 Orders Doctor POLLARD [id number] 00:00:00 00:00:00 Only Unassigned, AMIE [id number] [place] [facility] 4.2.7.2.686 [id number] 009 Results Test Description Test Time Test Comments Results Result Comments Source CULTURE, URINE 2022-01-01 SPECIMEN NUMBER: 09:10:33 [id number] CULTURE, URINE SPECIMEN NUMBER: [id number] SPECIMEN COMMENT: URINE SOURCE: URINE REPORT STATUS: FINAL FINAL REPORT: 01/01/2022 >100,000 CFU/ML MIXED MICROBIAL POPULATION PRESENT, NO PREDOMINATING ORGANISMS;PROBABLE CONTAMINANTS. CT/NG, NAAT, URINE 2021-12-31 19:56:17 Test Item Value Reference Range Interpretation Comme nts GONORRHEA, NAAT NEGATIVE NEGATIVE IMPORTA NT NOTICE: SEE ANNOUNCEMENT AT (test code = [email or web address] Note: 09688) Assay methodolo gy is nucleic acid amplification by transcriptio n mediated amplification (TMA) utilizing the A ptScayl Combo 2 Assay. CHLAMYDIA, NAAT NEGATIVE NEGATIVE IMPORTA NT NOTICE: SEE ANNOUNCEMENT AT (test code = [email or web address] Note: 94102) Assay methodolo gy is nucleic acid amplification by transcriptio n mediated amplification (TMA) utilizing the A ptScayl Combo 2 Assay. [id number] 06:53:53 Test Item Value Reference Range Interpretation Comments RPR RESULT (test code = NON-REACTIVE NON-REACTIVE 3501) RPR TITER (test code = 3500) NOT INDIC. TITER NOT INDIC. COMPREHENSIVE METABOLIC [id number] 06:47:48 Test Item Value Reference Range Interpretation Comments GLUCOSE (test code = 267 MG/DL 70-99 H 2216) BUN (test code = 19 MG/DL 8-23 2207) CREATININE (test 1.13 MG/DL 0.80-1.40 code = 2214) eGFR (2020 CKD-EPI) 72 >60 (test code = 50502) ML/MIN/1.73 CALC BUN/CREAT (test 17 RATIO 6-28 code = 2235) SODIUM (test code = 137 MEQ/L 831-220 9414) POTASSIUM (test code 4.2 MEQ/L 3.5-5.4 = 8) CHLORIDE (test code 97 MEQ/L 95-107 = 2215) CARBON DIOXIDE (test 23 MEQ/L 19-31 code = 2206) CALCIUM (test code = 9.3 MG/DL 8.5-10.5 2208) PROTEIN, TOTAL (test 7.8 G/DL 6.1-8.3 code = 222) ALBUMIN (test code = 4.0 G/DL 3.5-5.2 [...] PHOSPHATASE 95 U/L 40-123 (test code = 220) AST (test code = 17 U/L 9-50 2217) ALT (test code = 17 U/L 5-50 UNLESS OTH ERWISE 2218) INDICATED, ALL TESTING PERFORM ED ATCLINICAL PATH [facility]. [address] [place] [place] [id number] [place] [address] DIRECTOR: CRISTIANE MG M.D. CLIA NUMBER [id number] CAP ACCREDITATION N O. [id number] HIV 1/2 4TH GEN, RFLX [id number] 06:40:50 Test Item Value Reference Range Interpretation Comments HIV 1/2 4TH GEN, RFLX CONF (test NON-REACTIVE NON-REACTIVE code = 3514) HEPATITIS PANEL, [id number] 06:40:50 Test Item Value Reference Range Interpretation Comments HEPATITIS A IgM (test NON-REACTIVE NON-REACTIVE code = 35851) HEPATITIS B CORE IgM NON-REACTIVE NON-REACTIVE (test code = 4644) HEPATITIS B SURF AG NON-REACTIVE NON-REACTIVE (test code = 2739) HEPATITIS C ANTIBODY NON-REACTIVE NON-REACTIVE (test code = 4675) INTERPRETATION (NOTE) Hepatitis A HEPATITIS A: (test code sero logy shows no = 8862) evidence of acu te hepatitis A. INTERPRETATION (NOTE) Hepatitis B HEPATITIS B: (test code sero logy shows no = 79552) evidence of acu te hepatitis B and no indication of exposure to hepatitis B vir us in the previous anastasiya eight months. INTERPRETATION (NOTE) Hepatitis C HEPATITIS C: (test code sero logy shows no = 46854) evidence of exposure to hepatitisC viru s at this time. I t can take up to 12 months after exposure tothe hepatitis C vir us for antibodies to become detectab le in the blood in certain patient s. HEMOGLOBIN [id number] 06:38:59 Test Item Value Reference Range Interpretation Comments HEMOGLOBIN A1c (test 9.8 % 4.2-5.6 H [employer] code = 91816) ASSOCIATION IDELINES FOR HGB A1C: PREDIABETES/INC REASED [...] LABORATORY C ONSULTATION. CBC W/AUTO DIFF WITH [id number] 05:22:25 Test Item Value Reference Range Interpretation [...] RBCS 0.00 K/UL 0.00-0.11 (test code = 90574) SARS-COV2/RT-PCR ([facility])2020-02-25 10:48:00 Test Item Value Reference Range Interpretation Comments SARS-COV2/RT-PCR (test Not Detected Not Detected, Negative code = 7950721) SARS-COV-[address] [facility] (test code = 4915705) Negative results do not preclude SARS-CoV-2 infection [...] of the Act.Fact Sheet for Healthcare Pro viders:https://www.cepheid.Data Camp/Documents/Xpert%20Xpress%20SARS%20CoV-2/Fact%20Sh eets/302-3802%49ZERG-QFX-6%20HEALTHCARE%20PROVIDERS%20FACT%20SHEET.pdfFact Sheet for Healthcare Patients:https://www.swiftQueue/Documents/Xpert%20Xpress%20SARS%20CoV-2/Fact%20Sheets/302-3801%20SARS-COV -2%20PATIENT%20FACT%20SHEET.pdfPerforming Laboratory:[address] [id number] 12:24:00 Test Item Value Reference Range Interpretation Comments POC-GLUCOSE METER 255 mg/dL 70-110 H TESTED AT [place] [address] [facility] (test code = [facility] 1538) [address] POCT-GLUCOSE [id number] 08:35:00 Test Item Value Reference Range Interpretation Comments POC-GLUCOSE METER 127 mg/dL 70-110 H TESTED AT [place] [address] [facility] (test code = [facility] 1538) 24633 POCT-GLUCOSE [id number] 00:25:00 Test Item Value Reference Range Interpretation Comments POC-GLUCOSE METER 177 mg/dL 70-110 H TESTED AT [place] [address] ([facility]) (test code = [facility] 1538) [address] HEMOGLOBIN [id number] 14:20:00 Test Item Value Reference Range Interpretation Comments HEMOGLOBIN A1C (BEAKER) (test code = 6.9 % 4.3-6.1 H 368) BASIC METABOLIC [id number] 07:34:00 Test Item Value Reference Range Interpretation [...] ESTIMATED GFR. CBC W/PLT COUNT & AUTO [id number] 06:38:00 Test Item Value Reference Range Interpretation [...] PERCENT (BEAKER) (test code = 2801) POCT-GLUCOSE [id number] 21:40:00 Test Item Value Reference Range Interpretation Comments POC-GLUCOSE METER 171 mg/dL 70-110 H TESTED AT [place] [address] ([facility]) (test code = [facility] 1538) 11820 POCT-GLUCOSE [id number] 18:53:00 Test Item Value Reference Range Interpretation Comments POC-GLUCOSE METER 136 mg/dL 70-110 H TESTED AT [place] [address] ([facility]) (test code = [facility] 1538) [address]479 BASIC METABOLIC [id number] 05:58:00 Test Item Value Reference Range Interpretation [...] m DATA TO CALCULA TE ESTIMATED GFR. [id number] 05:57:00 Test Item Value Reference Range Interpretation Comments MAGNESIUM (BEAKER) (test code = 1.9 mg/dL 1.6-2.6 627) CBC W/PLT COUNT & AUTO [id number] 05:11:00 Test Item Value Reference Range Interpretation [...] PERCENT (AKER) (test code = 2801) POCT-GLUCOSE [id number] 21:45:00 Test Item Value Reference Range Interpretation Comments POC-GLUCOSE METER 177 mg/dL 70-110 H TESTED AT [place] [address] ([facility]) (test code = [facility] 1538) 41176 POCT-GLUCOSE [id number] 18:49:00 Test Item Value Reference Range Interpretation Comments POC-GLUCOSE METER 216 mg/dL 70-110 H TESTED AT [place] [address] ([facility]) (test code = [facility] 1538) 86436 POCT-GLUCOSE [id number] 09:56:00 Test Item Value Reference Range Interpretation Comments POC-GLUCOSE METER 202 mg/dL 70-110 H TESTED AT [place] [address] ([facility]) (test code = [facility] 1538) [address] [id number] 09:37:00 Test Item Value Reference Range Interpretation Comments PROTIME (BEAKER) (test code = 14.5 seconds 11.7-14.7 759) INR ([facility]) (test code = 370) 1.1 <=5.9 PARTIAL THROMBOPLASTIN TIME 32.4 seconds 22.5-36.0 ([facility]) (test code = 760) RECOMMENDED COUMADIN/WARFARIN INR THERAPY RANGESSTANDARD DOSE: 2.0 - 3.0 Includes: PROPHYLAXIS for venous thrombosis, systemic embolization; TREATMENT for venous thrombosis and/or pulmonary embolus.HIGH RISK: Target INR is 2.5-3.5 for patients with mechanical heart valves.BASIC METABOLIC [id number] 09:24:00 Test Item Value Reference Range Interpretation [...] m DATA TO CALCULA TE ESTIMATED GFR. [id number] 09:16:00 Test Item Value Reference Range Interpretation Comments MAGNESIUM (BEAKER) (test code = 1.8 mg/dL 1.6-2.6 627) CBC W/PLT COUNT & AUTO [id number] 08:53:00 Test Item Value Reference Range Interpretation [...] PERCENT (BEAKER) (test code = 2801) POCT-GLUCOSE [id number] 21:32:00 Test Item Value Reference Range Interpretation Comments POC-GLUCOSE METER 200 mg/dL 70-110 H TESTED AT [place] [address] ([facility]) (test code = [facility] 1538) [address] POCT-GLUCOSE [id number] 17:42:00 Test Item Value Reference Range Interpretation Comments POC-GLUCOSE METER 191 mg/dL 70-110 H TESTED AT [place] [address] ([facility]) (test code = [facility] 1538) 8[address]30 HEMOGLOBIN AND [id number] 15:51:00 Test Item Value Reference Range Interpretation Comments HEMOGLOBIN (BEAKER) (test code = 7.4 GM/DL 13.7-17.5 L 410) HEMATOCRIT (BEAKER) (test code = 23.9 % 40.1-51.0 L 411) POCT-GLUCOSE [id number] 13:02:00 Test Item Value Reference Range Interpretation Comments POC-GLUCOSE METER 190 mg/dL 70-110 H TEST[facility] AT [place] [address] [facility] (test code = [facility] 1538) 69725 POCT-GLUCOSE [id number] 08:10:00 Test Item Value Reference Range Interpretation Comments POC-GLUCOSE METER 176 mg/dL 70-110 H TESTED AT [place] [address] (BEAKER) (test code = [place] 1538) [address] RAD, CHEST, 1 VIEW, NON [id number] 07:47:00Reason for exam:->pl effusionShould this be performed at the bedside?->YesFINAL REPORT Chest one view compared to November 30 Discussion: Mild pulmonary c ongestion and probable left lower lung atelectasis. I could not exclude small left effusion. No pneumothorax. IMPRESSIONS: Similar cardiopulmonary appearance. Signed: Atul Mcdonough MDReport Verified Date/Time: 12/01/2017 07:47:00 Reading Location: [facility] Reading Room BASIC METABOLIC [id number] 05:25:00 Test Item Value Reference Range Interpretation [...] m DATA TO CALCULA TE ESTIMATED GFR. [id number] 05:18:00 Test Item Value Reference Range Interpretation Comments MAGNESIUM (BEAKER) (test code = 1.8 mg/dL 1.6-2.6 627) CBC W/PLT COUNT & AUTO [id number] 04:59:00 Test Item Value Reference Range Interpretation [...] PERCENT (BEAKER) (test code = 2801) POCT-GLUCOSE [id number] 22:11:00 Test Item Value Reference Range Interpretation Comments POC-GLUCOSE METER 190 mg/dL 70-110 H TESTED AT [place] [address] (BEAKER) (test code = [place] 1538) [address] POCT-GLUCOSE [id number] 16:58:00 Test Item Value Reference Range Interpretation Comments POC-GLUCOSE METER 193 mg/dL 70-110 H TESTED AT [place] [address] (BEAKER) (test code = [place] 1538) [address] CBC (HEMOGRAM ONLY)2017-11-30 13:05:00 Test Item Value [...] 0-0 (BEAKER) (test code = 413) POCT-GLUCOSE [id number] 12:06:00 Test Item Value Reference Range Interpretation Comments POC-GLUCOSE METER 142 mg/dL 70-110 H TESTED AT [place] [address] (BEAKER) (test code = [place] 1538) [address] POCT-GLUCOSE [id number] 09:23:00 Test Item Value Reference Range Interpretation Comments POC-GLUCOSE METER 108 mg/dL 70-110 TESTED AT [place] [address] ([facility]) (test code = [place] 1538) [address] [id number] 05:44:00 Test Item Value Reference Range Interpretation Comments ACTIVATED CLOTTING TIME 103 sec TEST ED AT [place] [address] ([facility]) (test code = [place] 441) [address] [id number] 05:44:00 Test Item Value Reference Range Interpretation Comments ACTIVATED CLOTTING TIME 439 sec TEST ED AT [place] [address] ([facility]) (test code = [place] 441) [address] [id number] 05:44:00 Test Item Value Reference Range Interpretation Comments ACTIVATED CLOTTING TIME 604 sec TEST ED AT [place] [address] ([facility]) (test code = [place] 441) [address] [id number] 05:44:00 Test Item Value Reference Range Interpretation Comments ACTIVATED CLOTTING TIME 444 sec TEST ED AT [place] [address] ([facility]) (test code = [place] 441) [address] POCT-GLUCOSE [id number] 04:45:00 Test Item Value Reference Range Interpretation Comments POC-GLUCOSE METER 122 mg/dL 70-110 H TESTED AT [place] [address] ([facility]) (test code = [place] 1538) [address] RAD, CHEST, 1 VIEW, NON [id number] 04:40:00while patient is intubated or has chest [...] changes.Additional findings: None. Signed: JR Scanlon Robert [facility] Verified Date/Time: 11/30/2017 04:40:05 Reading Location: [address] Reading Room CBC W/PLT COUNT & AUTO [id number] 03:49:00 Test Item Value Reference Range Interpretation [...] (BEAKER) (test code = 2801) BASIC METABOLIC [id number] 03:49:00 Test Item Value Reference Range Interpretation [...] m DATA TO CALCULA TE ESTIMATED GFR. [id number] 03:42:00 Test Item Value Reference Range Interpretation Comments MAGNESIUM (BEAKER) (test code = 1.9 mg/dL 1.6-2.6 627) POCT-GLUCOSE [id number] 03:04:00 Test Item Value Reference Range Interpretation Comments POC-GLUCOSE METER 143 mg/dL 70-[address] [facility] 6720 (BEAKER) (test code = SADA [place]ter[place] 1538) [address] POCT-GLUCOSE [id number] 02:04:00 Test Item Value Reference Range Interpretation Comments POC-GLUCOSE METER 146 mg/dL 70-[address] [facility] 6720 (BEAKER) (test code = SADA Chatterjee [place] 1538) [address] POCT-GLUCOSE [id number] 01:04:00 Test Item Value Reference Range Interpretation Comments POC-GLUCOSE METER 203 mg/dL 70-110 H TESTED AT [place] [address] ([facility]) (test code = SADA Chatterjee [facility] 1538) [id number] 01:03:00 Test Item Value Reference Range Interpretation Comments POTASSIUM (BEAKER) (test code = 4.3 meq/L 3.5-5.1 379) [id number] 01:03:00 Test Item Value Reference Range Interpretation Comments MAGNESIUM (BEAKER) (test code = 2.1 mg/dL 1.6-2.6 627) CALCIUM, [id number] 00:29:00 Test Item Value Reference Range Interpretation Comments CALCIUM IONIZED ([facility]) (test 1.08 mmol/L 1.12-1.27 L code = 698) PH, BLOOD ([facility]) (test code = 7.39 1810) POCT-GLUCOSE [id number] 00:09:00 Test Item Value Reference Range Interpretation Comments POC-GLUCOSE METER 214 mg/dL 70-110 H TESTED AT [place] [address] ([facility]) (test code = SADA Chatterjee [facility] 1538) [id number] POCT-GLUCOSE [id number] 22:51:00 Test Item Value Reference Range Interpretation Comments POC-GLUCOSE METER 179 mg/dL 70-110 H TESTED AT [place] [address] ([facility]) (test code = SADA Chatterjee [facility] 1538) [address] POCT-GLUCOSE [id number] 22:13:00 Test Item Value Reference Range Interpretation Comments POC-GLUCOSE METER 206 mg/dL 70-110 H TESTED AT [place] [address] ([facility]) (test code = SADA Chatterjee [facility] 1538) [address] BLOOD GAS, [id number] 21:08:00 Test Item Value Reference Range Interpretation Comments PH ARTERIAL ([facility]) (test code = 7.35 7.35-7.45 383) PCO2 ARTERIAL ([facility]) (test code 43 mmHg 35-45 = 384) PO2 ARTERIAL (AKER) (test code 136 mmHg 80-90 H = 385) O2 SATURATION ARTERIAL ([facility]) 98.6 % 96.0-97.0 H (test code = 386) HCO3 ARTERIAL ([facility]) (test code 23 mmol/L 21-29 = 388) BASE EXCESS ARTERIAL (AKER) -2.1 mmol/L -2.0-3.0 L (test code = 387) PATIENT TEMPERATURE (BEAKER) 37.1 C (test code = 1818) FIO2 (BEAKER) (test code = 1819) 36.0 % Post extubation ABGPOCT-GLUCOSE [id number] 21:03:00 Test Item Value Reference Range Interpretation Comments POC-GLUCOSE METER 197 mg/dL 70-110 H TESTED AT [place] [address] (BEAKER) (test code = SADA Chatterjee [place] 1538) [id number] POCT-GLUCOSE [id number] 20:47:00 Test Item Value Reference Range Interpretation Comments POC-GLUCOSE METER 197 mg/dL 70-110 H TESTED AT [place] [address] ([facility]) (test [facility] = [facility] [place] 15[address]) [address] [id number] 20:10:00 Test Item Value Reference Range Interpretation Comments MAGNESIUM (BEAKER) (test code = 2.3 mg/dL 1.6-2.6 627) Check Serum Magnesium level 2 hours after IV magnesium replacement.POCT-GLUCOSE [id number] 20:02:00 Test Item Value Reference Range Interpretation Comments POC-GLUCOSE METER 234 mg/dL 70-110 H TESTED AT [place] [address] (BEAKER) (test code = [facility] [place] 1538) [address] BLOOD GAS, [id number] 19:57:00 Test Item Value Reference Range Interpretation [...] (test code = 1819) 40.0 % POCT-GLUCOSE [id number] 18:44:00 Test Item Value Reference Range Interpretation Comments POC-GLUCOSE METER 209 mg/dL 70-[address] [facility] 6720 (BEAKER) (test code = [place] 1538) [address] BASIC METABOLIC [id number] 16:13:00 Test Item Value Reference Range Interpretation [...] ESTIMATED GFR. RAD, CHEST, 1 VIEW, NON [id number] 16:13:00Reason for exam:->intubated, chest tubesShould this be [...] are seen in the spine. Signed: Leticia Mainepclementine Verified Date/Time: 11/29/201716:13:26 Reading Location: [facility] Radiology Reading Room APTT 2017-11-29 16:12:00 Test Item Value Reference Range Interpretation Comments PARTIAL THROMBOPLASTIN TIME 31.4 seconds 22.5-36.0 (BEAKER) (test code = 760) PROTHROMBIN [id number] 16:11:00 Test Item Value Reference Range Interpretation Comments PROTIME (BEAKER) (test code = 17.6 seconds 11.7-14.7 H 759) INR (BEAKER) (test code = 370) 1.5 <=5.9 RECOMMENDED COUMADIN/WARFARIN INR THERAPY RANGESSTANDARD DOSE: 2.0 - 3.0 Includes: PROPHYLAXIS for venous thrombosis, systemic embolization; TREATMENT for venous thrombosis and/or pulmonary embolus.HIGH RISK: Target INR is 2.5-3.5 for patients with mechanical heart valves.[id number] 16:11:00 Test Item Value Reference Range Interpretation Comments MAGNESIUM (BEAKER) 1.7 mg/dL 1.6-2.6 Specimen slightly (test code = 627) hemolyzed LACTIC ACID, ARTERIAL, WHOLE [id number] 16:06:00 Test Item Value Reference Range Interpretation Comments LACTATE BLOOD 1.2 mmol/L 0.5-2.2 Specimen sligh tly ARTERIAL (2) (BEAKER) hemoly zed (test code = 2874) Effective 02/18/2016: Units/Reference Range ChangeNew: 0.5-2.2 mmol/L Previous: 5- 20 mg/dLCBC W/PLT COUNT & AUTO [id number] 16:02:00 Test Item Value Reference Range Interpretation [...] (BEAKER) (test code = 2801) OXYGEN SATURATION, [id number] 15:54:00 Test Item Value Reference Range Interpretation Comments O2 SATURATION (MEASURED) (BEAKER) 64.9 % (test code = 1455) From distal port of IJ central venous catheterSODIUM NA-STAT [id number] 15:54:00 Test Item Value Reference Range Interpretation Comments SODIUM (BEAKER) (test code = 381) 138 meq/L 135-148 POTASSIUM-STAT [id number] 15:54:00 Test Item Value Reference Range Interpretation Comments POTASSIUM (BEAKER) (test code = 4.2 meq/L 3.6-5.5 379) BLOOD GAS, [id number] 15:54:00 Test Item Value Reference Range Interpretation [...] (test code = 1819) 60.0 % CALCIUM, [id number] 15:54:00 Test Item Value Reference Range Interpretation Comments CALCIUM IONIZED (BEAKER) (test 1.06 mmol/L 1.12-1.27 L code = 698) PH, BLOOD (BEAKER) (test code = 7.31 1810) GLUCOSE-STAT [id number] 15:54:00 Test Item Value Reference Range Interpretation Comments GLUCOSE RANDOM (BEAKER) (test code 173 mg/dL 70-110 H = 652) HGB/HCT (H&H) - STAT [id number] 15:54:00 Test Item Value Reference Range Interpretation [...] MM 55.0-65.0 (test code = 1413) PLATELET [id number] 14:50:00 Test Item Value Reference Range Interpretation Comments PLATELET COUNT (BEAKER) (test code 98 K/CU MM 150-450 L = 756) [id number] 14:27:00 Test Item Value Reference Range Interpretation Comments FIBRINOGEN LEVEL (BEAKER) (test 176 mg/dl 225-434 L code = 658) PROTHROMBIN [id number] 14:14:00 Test Item Value Reference Range Interpretation Comments PROTIME (BEAKER) (test code = 20.7 seconds 11.7-14.7 H 759) INR (BEAKER) (test code = 370) 1.8 <=5.9 RECOMMENDED COUMADIN/WARFARIN INR THERAPY RANGESSTANDARD DOSE: 2.0 - 3.0 Includes: PROPHYLAXIS for venous thrombosis, systemic embolization; TREATMENT for venous thrombosis and/or pulmonary embolus.HIGH RISK: Target INR is 2.5-3.5 for patients with mechanical heart valves.[id number] 14:14:00 Test Item Value Reference Range Interpretation Comments PARTIAL THROMBOPLASTIN TIME 30.2 seconds 22.5-36.0 (BEAKER) (test code = 760) CALCIUM, [id number] 13:55:00 Test Item Value Reference Range Interpretation Comments CALCIUM IONIZED (BEAKER) (test 1.13 mmol/L 1.12-1.27 code = 698) PH, BLOOD (BEAKER) (test code = 7.30 8620) BLOOD GAS, [id number] 13:55:00 Test Item Value Reference Range Interpretation [...] (test code = 1819) 100.0 % GLUCOSE-STAT [id number] 13:55:00 Test Item Value Reference Range Interpretation Comments GLUCOSE RANDOM (BEAKER) (test code 201 mg/dL 70-110 H = 652) HGB/HCT (H&H) - STAT [id number] 13:55:00 Test Item Value Reference Range Interpretation Comments HEMOGLOBIN (BEAKER) (test code = 9.7 g/dL 13.0-16.8 L 410) HEMATOCRIT (BEAKER) (test code = 29.0 % 40.0-50.0 L 411) SODIUM NA-STAT [id number] 13:54:00 Test Item Value Reference Range Interpretation Comments SODIUM (BEAKER) (test code = 381) 137 meq/L 135-148 POTASSIUM-STAT [id number] 13:54:00 Test Item Value Reference Range Interpretation Comments POTASSIUM (BEAKER) (test code = 3.9 meq/L 3.6-5.5 379) BLOOD GAS, [id number] 13:22:00 Test Item Value Reference Range Interpretation [...] (test code = 1819) 80.0 % GLUCOSE-STAT [id number] 13:22:00 Test Item Value Reference Range Interpretation Comments GLUCOSE RANDOM (BEAKER) (test code 191 mg/dL 70-110 H = 652) HGB/HCT (H&H) - STAT [id number] 13:22:00 Test Item Value Reference Range Interpretation Comments HEMOGLOBIN (BEAKER) (test code = 9.3 g/dL 13.0-16.8 L 410) HEMATOCRIT (BEAKER) (test code = 27.0 % 40.0-50.0 L 411) SODIUM NA-STAT [id number] 13:18:00 Test Item Value Reference Range Interpretation Comments SODIUM (BEAKER) (test code = 381) 136 meq/L 135-148 POTASSIUM-STAT [id number] 13:18:00 Test Item Value Reference Range Interpretation Comments POTASSIUM (BEAKER) (test code = 4.6 meq/L 3.6-5.5 379) BLOOD GAS, [id number] 12:39:00 Test Item Value Reference Range Interpretation [...] code = 1819) 60.0 % SODIUM NA-STAT [id number] 12:39:00 Test Item Value Reference Range Interpretation Comments SODIUM (BEAKER) (test code = 381) 134 meq/L 135-148 L GLUCOSE-STAT [id number] 12:39:00 Test Item Value Reference Range Interpretation Comments GLUCOSE RANDOM (BEAKER) (test code 166 mg/dL 70-110 H = 652) HGB/HCT (H&H) - STAT [id number] 12:39:00 Test Item Value Reference Range Interpretation Comments HEMOGLOBIN (BEAKER) (test code = 9.9 g/dL 13.0-16.8 L 410) HEMATOCRIT (BEAKER) (test code = 29.0 % 40.0-50.0 L 411) POTASSIUM-STAT [id number] 12:38:00 Test Item Value Reference Range Interpretation Comments POTASSIUM (BEAKER) (test code = 4.4 meq/L 3.6-5.5 379) SODIUM NA-STAT [id number] 11:22:00 Test Item Value Reference Range Interpretation Comments SODIUM (BEAKER) (test code = 381) 140 meq/L 135-148 POTASSIUM-STAT [id number] 11:22:00 Test Item Value Reference Range Interpretation Comments POTASSIUM (BEAKER) (test code = 4.0 meq/L 3.6-5.5 379) HGB/HCT (H&H) - STAT [id number] 11:22:00 Test Item Value Reference Range Interpretation Comments HEMOGLOBIN (BEAKER) (test code = 14.5 g/dL 13.0-16.8 410) HEMATOCRIT (BEAKER) (test code = 43.0 % 40.0-50.0 411) BLOOD GAS, [id number] 11:22:00 Test Item Value Reference Range Interpretation [...] (test code = 1819) 100.0 % GLUCOSE-STAT [id number] 11:22:00 Test Item Value Reference Range Interpretation Comments GLUCOSE RANDOM (BEAKER) (test code 112 mg/dL 70-110 H = 652) PLATELET AGGREGATION: FUNCTION [id number] 09:52:00 Test Item Value Reference Range Interpretation Comments WEAK ADP 68 % 60-91 RESULT(BEAKER) (test code = 2135) PLATELET FUNCTION 60-100% indicates SCREEN INTERP (BEAKER) normal platelet (test code = 2173) function [id number] Batsheva Llamas MD ([facility]) (test code = (electronic signature) 0162) PLATELET COUNT AGG 176 K/CU MM 150-450 (BEAKER) (test code = 2656) RAD, CHEST, 1 VIEW, NON [id number] 08:51:00Reason for exam:->preop for CV surgeryFINAL REPORT [...] MDReport Verified Date/Time: 11/29/2017 08:51:39 Reading Location: [facility] Women Electronically signed by: ULISES KATHLEEN M.D. on11/29/2017 08:51 AM POCT-GLUCOSE [id number] 07:42:00 Test Item Value Reference Range Interpretation Comments POC-GLUCOSE METER 105 mg/dL 70-[address] [facility] 6720 ([facility]) (test code = SADA Chatterjee [facility] 1538) [address] COMPREHENSIVE METABOLIC [id number] 07:03:00 Test Item Value Reference Range Interpretation [...] O CALCULATE ESTIM ATED GFR. BASIC METABOLIC [id number] 07:03:00 Test Item Value Reference Range Interpretation [...] m DATA TO CALCULA TE ESTIMATED GFR. [id number] 06:54:00 Test Item Value Reference Range Interpretation Comments MAGNESIUM (BEAKER) (test code = 1.9 mg/dL 1.6-2.6 627) PROTHROMBIN [id number] 06:46:00 Test Item Value Reference Range Interpretation Comments PROTIME (BEAKER) (test code = 13.4 seconds 11.7-14.7 759) INR (BEAKER) (test code = 370) 1.0 <=5.9 RECOMMENDED COUMADIN/WARFARIN INR THERAPY RANGESSTANDARD DOSE: 2.0 - 3.0 Includes: PROPHYLAXIS for venous thrombosis, systemic embolization; TREATMENT for venous thrombosis and/or pulmonary embolus.HIGH RISK: Target INR is 2.5-3.5 for patients with mechanical heart valves.CBC W/PLT COUNT & AUTO [id number] 06:35:00 Test Item Value Reference Range Interpretation [...] PERCENT (BEAKER) (test code = 2801) POCT-GLUCOSE [id number] 21:53:00 Test Item Value Reference Range Interpretation Comments POC-GLUCOSE METER 131 mg/dL 70-[address] [facility] 67[address] [facility] (test code = MEAGANFOUZIA [place] 1538) [address] HEMOGLOBIN [id number] 20:50:00 Test Item Value Reference Range Interpretation Comments HEMOGLOBIN A1C (BEAKER) (test code = 6.6 % 4.3-6.1 H 368) POCT-GLUCOSE [id number] 19:15:00 Test Item Value Reference Range Interpretation Comments POC-GLUCOSE METER 134 mg/dL 70-[address] [facility] 67[address] [facility] (test code = SADA [place] 1538) [address] [id number] 18:35:00 Test Item Value Reference Range Interpretation Comments PARTIAL THROMBOPLASTIN TIME 32.4 seconds 22.5-36.0 (BEAKER) (test code = 760) [id number] 18:34:00 Test Item Value Reference Range Interpretation Comments FIBRINOGEN LEVEL (BEAKER) (test 372 mg/dl 225-434 code = 658) TSH/FREE T4 IF [id number] 16:25:00 Test Item Value Reference Range Interpretation Comments THYROID STIMULATING HORMONE 2.53 uIU/mL 0.35-4.94 (BEAKER) (test code = 772) BASIC METABOLIC [id number] 16:10:00 Test Item Value Reference Range Interpretation [...] m DATA TO CALCULA TE ESTIMATED GFR. LIPID [id number] 16:09:00 Test Item Value Reference Range Interpretation [...] 130-159 High 160-189 Very High >=190HEPATIC FUNCTION [id number] 16:09:00 Test Item Value Reference Range Interpretation [...] (test code = 22 U/L 6-55 347) [id number] 16:09:00 Test Item Value Reference Range Interpretation Comments PHOSPHORUS (BEAKER) (test code = 3.0 mg/dL 2.3-4.7 604) [id number] 16:09:00 Test Item Value Reference Range Interpretation Comments MAGNESIUM (BEAKER) (test code = 2.0 mg/dL 1.6-2.6 627) [id number] 16:04:00 Test Item Value Reference Range Interpretation [...]
[2023-03-20 16:12] LABS: Absolute Lymphocytes (CBC) 1.2 K/uL (0.7-4.9); Hematocrit 44.7 % (39.6-49.0); Lymphocytes % 19.1 % (15.3-44.8); MCV 86.5 fL (80-100); MPV 9.3 fL (7.6-11.3); RBC Red Blood Cell Count 5.16 M/uL (4.33-5.43)
[2023-03-20 16:16] LABS: Protime INR 1.02
[2023-03-20 16:34] LABS: Albumin 3.2 g/dL (3.4-5.0); Bilirubin Direct 0.2 mg/dL (0-0.2); Bilirubin Indirect, Calculated 0.5 mg/dL (0.2-0.8); Bilirubin Total 0.7 mg/dL (0.2-1.0); Magnesium 1.8 mg/dL (1.6-2.4); Potassium 3.7 mEq/L (3.5-5.1); Protein, Total 8.3 g/dL (6.4-8.2); Troponin High Sensitivity 8.5 pg/mL (<58.9)
--- NOTE | 2023-03-20 16:57 | RAD REPORT ---
EXAM DESCRIPTION: GLORIAChest Single View03/20/2023 4:05 pm CLINICAL HISTORY: DYSPNEA COMPARISON: Chest Single View dated 09/25/2022; Chest Single View dated 08/11/2022; Chest Single Vie w dated 11/30/2021; Chest Single View dated 08/25/2021 TECHNIQUE: Portable AP view of the chest. FINDINGS: Central interstitial prominence, worsened since the prior exam. Hazy left retrocardiac opa cification. Possible trace left effusion. No pneumothorax or other sizable effusion. The heart is mo derately enlarged. Sequelae of prior CABG. Mediastinal contours otherwise unremarkable. IMPRESSION: Central interstitial prominence, worsening since the prior exam, with retrocardiac opaci fication and possible trace effusion. Moderate cardiomegaly. Findings raise concern for congestive he art failure.
[2023-03-20] MEDS ORDERED: FUROSEMIDE 40 MG/4 ML VIAL ONE ×2 (17:24→17:35)
--- NOTE | 2023-03-20 18:48 | EDPHYS ---
Physician Documentation [facility] Name: Armond Beltrán Age: 67 yrs Sex: Male : 1955 Arrival Date: 03/20/2023 Time: 15:39 Bed 6 Private MD: James Rg V ED Physician Jermain Santa HPI: 03/20 17:48 This 67 yrs old Male presents to ER via Ambulatory with complaints of bs3 Shortness Of Breath. 17:48 67-year-old male history of CAD status post CABG, chronic pain, diabetes, hypertension bs3 presents with cough shortness of breath it is a nonproductive cough worse with laying flat better with rest he does note that he ran out of his Lasix several days ago denies fevers chills he does note some right-sided abdominal pain as well which has been going on for more than 3 to 4 days without any associated symptoms. Historical: - Allergies: 15:51 NKA; ld1 - PMHx: 15:51 CABG; Chronic pain; Diabetes - NIDDM; Hypertension; Myocardial infarction; ld1 Hypercholesterolemia; - PSHx: 15:51 Heart bypass; ld1 - Immunization history:: Adult Immunizations up to date, Client reports receiving the 2nd dose of the Covid vaccine. - Social history:: Smoking status: Patient denies any tobacco usage or history of. Patient/guardian denies using alcohol. ROS: 17:48 Constitutional: Negative for fever, chills bs3 17:48 All other systems are negative. Exam: 17:48 Constitutional: This is a well developed, well nourished patient who is awake, alert, bs3 and in no acute distress. Head/Face: Normocephalic, atraumatic. Eyes: Pupils equal round and reactive to light, extra-ocular motions intact. Lids and lashes normal. ENT: mmm, no posterior phyarngeal erythema Neck: Trachea midline, no thyromegaly, no neck stiffness Chest/axilla: Normal chest wall appearance and motion. Nontender with no deformity. No lesions are appreciated. Cardiovascular: Regular rate and rhythm with a normal S1 and S2. symmetric pulses in upper extremities Respiratory: crackles b/l Abdomen/GI: umbilical hernia, points just lateral to this on the right, no focal tenderness Skin: Warm, dry with normal turgor. Normal color with no rashes, no lesions, and no evidence of cellulitis. MS/ Extremity: Pulses equal, no cyanosis. Neurovascular intact. Full, normal range of motion. Neuro: Awake and alert, GCS 15, oriented to person, place, time, and situation. Cranial nerves II-XII grossly intact. Motor strength 5/5 in all extremities. Sensory grossly intact. 19:14 Sinus of [address] elevation or depressions right bundle branch block, qtc 520 bs3 Vital Signs: 15:50 BP 164 / 99; Pulse 94; Resp 12; Temp 98.3(O); Pulse Ox 97% on R/A; Weight 129.73 kg; ld1 Height 6 ft. 3 in. ; Pain 0/10; 16:24 BP 154 / 82; Pulse 94; Resp 20; Pulse Ox 97% on R/A; ll1 16:30 BP 154 / 82; Pulse 97; Resp 18; Pulse Ox 96% on R/A; ld1 18:46 BP 163 / 94; Pulse 87; Resp 22; Pulse Ox 95% ; ll1 19:19 BP 149 / 92; Pulse 93; Resp 18 S; Pulse Ox 96% on R/A; as6 15:50 Body Mass Index 35.75 (129.73 kg, 190.5 cm) ld1 15:50 Pain Scale: Adult ld1 MDM: 15:43 Patient medically screened. bs3 18:35 Data reviewed: vital signs, nurses notes. ED course: labs notable for elevated bnp, bs3 will admit given potential new chf. 18:45 ED course: Dr. Ifrah akbar for admission. will admit to his service. . bs3 04 15:50 Order name: Basic Metabolic Panel; Complete Time: 17:04 bs3 03/20 15:50 Order name: CBC with Diff; Complete Time: 17:04 bs3 03/20 15:50 Order name: Magnesium; Complete Time: 17:04 bs3 03/20 15:50 Order name: NT PRO-BNP; Complete Time: 17:04 bs3 03/20 15:50 Order name: PT-INR; Complete Time: 17:04 bs3 03/20 15:50 Order name: Troponin HS; Complete Time: 17:04 bs3 03/20 15:50 Order name: LFT's; Complete Time: 17:04 bs3 03/20 19:01 Order name: Basic Metabolic Panel EDMS 03/20 19:01 Order name: Basic Metabolic Panel EDMS 03/20 19:01 Order name: CBC with Automated Diff EDMS 03/20 19:01 Order name: CBC with Automated Diff EDMS 03/20 19:01 Order name: NT PRO-BNP EDMS 03/20 19:01 Order name: NT PRO-BNP EDMS 03/20 19:01 Order name: Troponin High Sensitivity EDMS 03/20 15:50 Order name: XRAY Chest (1 view); Complete Time: 17:04 bs3 03/20 17:46 Order name: CT Abd/Pelvis - IV Contrast Only bs3 03/20 15:50 Order name: EKG; Complete Time: 15:51 bs3 03/20 18:57 Order name: CONS Physician Consult EDMS 03/20 19:01 Order name: Low Sodium EDMS 03/20 15:44 Order name: EKG - Nurse/Tech; Complete Time: 15:53 bs3 03/20 15:50 Order name: Cardiac monitoring; Complete Time: 15:53 bs3 03/20 15:50 Order name: IV Saline Lock; Complete Time: 16:08 bs3 03/20 15:50 Order name: Labs collected and sent; Complete Time: 16:08 bs3 03/20 15:50 Order name: O2 Per Protocol; Complete Time: 15:53 bs3 03/20 15:50 Order name: O2 Sat Monitoring; Complete Time: 15:53 bs3 Administered Medications: 17:26 Drug: Furosemide IVP 40 mg Route: IVP; Site: right antecubital; ld1 19:39 Follow up: Response: No adverse reaction as6 18:46 Drug: Ketorolac IVP 15 mg Route: IVP; Site: right upper arm; ll1 19:39 Follow up: Response: No adverse reaction as6 19:19 Drug: morphine IVP or IV 2 mg Route: IVP; Infused Over: 4 mins; Site: right upper arm; as6 19:39 Follow up: Response: No adverse reaction as6 Disposition Summary: 03/20/23 18:47 Hospitalization Ordered Hospitalization Status: Observation bs3 Provider: James Rg bs3 Location: Telemetry/MedSurg (observation) bs3 Condition: Fair bs3 Problem: new bs3 Symptoms: have improved bs3 Bed/Room Type: Standard bs3 Room Assignment: 230(03/20/23 19:31) dw Diagnosis - Systolic (congestive) heart failure bs3 Forms: - Medication Reconciliation Form bs3 - SBAR form bs3 Signatures: Dispatcher [employer] EDMS Nohemi Redding RN RN dw Michael Carpio RN RN ll1 Destini Ortega RN RN ld1 Iain Smith RN RN as6 Jermain Santa MD MD bs3 Corrections: (The following items were deleted from the chart) 16:07 15:45 Chest Pa And Lat (2 Views)+RAD.RAD.BRZ ordered. EDNY EDNY 19: 18:47 bs3 19: 19:28 206 dw dw
--- NOTE | 2023-03-20 18:48 | ER ---
Nurse's Notes [facility] Name: Armond Beltrán Age: 67 yrs Sex: Male : 1955 Arrival Date: 03/20/2023 Time: 15:39 Bed 6 Private MD: James Rg V Diagnosis: Systolic (congestive) heart failure Presentation: 03/20 15:50 Chief complaint: Patient states: SOB X 3 days. Coronavirus screen: At this time, the ld1 client does not indicate any symptoms associated with coronavirus-19. Ebola Screen: No symptoms or risks identified at this time. Initial Sepsis Screen: Does the patient meet any 2 criteria? No. Patient's initial sepsis screen is negative. Does the patient have a suspected source of infection? No. Patient's initial sepsis screen is negative. Risk Assessment: Do you want to hurt yourself or someone else? Patient reports no desire to harm self or others. Onset of symptoms was March 20, 2023. 15:50 Method Of Arrival: Ambulatory ld1 15:50 Acuity: KEVIN 3 ld1 Triage Assessment: 15:51 General: Appears in no apparent distress. comfortable, Behavior is calm, cooperative, ld1 appropriate for age. Pain: Denies pain. EENT: No signs and/or symptoms were reported regarding the EENT system. Neuro: Level of Consciousness is awake, alert, obeys commands, Oriented to person, place, time, situation. Cardiovascular: Capillary refill < 3 seconds Patient's skin is warm and dry. Rhythm is sinus rhythm. Respiratory: Reports shortness of breath cough that is Airway is patent Respiratory effort is even, unlabored, Onset: The symptoms/episode began/occurred 3 daysg, the patient has moderate shortness of breath. GI: Abdomen is round non-distended. : No signs and/or symptoms were reported regarding the genitourinary system. Derm: No signs and/or symptoms reported regarding the dermatologic system. Derm: No signs and/or symptoms reported regarding the dermatologic system. Musculoskeletal: No signs and/or symptoms reported regarding the musculoskeletal system. Historical: - Allergies: 15:51 NKA; ld1 - PMHx: 15:51 CABG; Chronic pain; Diabetes - NIDDM; Hypertension; Myocardial infarction; ld1 Hypercholesterolemia; - PSHx: 15:51 Heart bypass; ld1 - Immunization history:: Adult Immunizations up to date, Client reports receiving the 2nd dose of the Covid vaccine. - Social history:: Smoking status: Patient denies any tobacco usage or history of. Patient/guardian denies using alcohol. Screenin:52 [facility] ED Fall Risk Assessment (Adult) History of falling in the last 3 months, ld1 including since admission No falls in past 3 months (0 pts). Abuse screen: Denies threats or abuse. Denies injuries from another. Nutritional screening: No deficits noted. Tuberculosis screening: No symptoms or risk factors identified. Assessment: 15:52 Reassessment: See triage assessment. Cardiovascular: Capillary refill < 3 seconds ld1 Patient's skin is warm and dry. Cardiovascular: Rhythm is sinus rhythm. Respiratory: Airway is patent Respiratory effort is even, unlabored, Breath sounds with wheezes bilaterally. 16:08 Reassessment: No changes from previously documented assessment. Patient and/or family ll1 updated on plan of care and expected duration. Pain level reassessed. Patient is alert, oriented x 3, equal unlabored respirations, skin warm/dry/pink. 17:03 Reassessment: No changes from previously documented assessment. Patient and/or family ll1 updated on plan of care and expected duration. Pain level reassessed. Patient is alert, oriented x 3, equal unlabored respirations, skin warm/dry/pink. 17:32 Reassessment: No changes from previously documented assessment. Patient and/or family ll1 updated on plan of care and expected duration. Pain level reassessed. Patient is alert, oriented x 3, equal unlabored respirations, skin warm/dry/pink. 18:00 Reassessment: No changes from previously documented assessment. Patient and/or family ll1 updated on plan of care and expected duration. Pain level reassessed. 18:37 Reassessment: No changes from previously documented assessment. Patient and/or family ll1 updated on plan of care and expected duration. Pain level reassessed. Patient is alert, oriented x 3, equal unlabored respirations, skin warm/dry/pink. 18:47 Reassessment: No changes from previously documented assessment. Patient and/or family ll1 updated on plan of care and expected duration. Pain level reassessed. 19:19 General: pt c/o cough and chest pain. respirations even and non labored . as6 Vital Signs: 15:50 BP 164 / 99; Pulse 94; Resp 12; Temp 98.3(O); Pulse Ox 97% on R/A; Weight 129.73 kg; ld1 Height 6 ft. 3 in. ; Pain 0/10; 16:24 BP 154 / 82; Pulse 94; Resp 20; Pulse Ox 97% on R/A; ll1 16:30 BP 154 / 82; Pulse 97; Resp 18; Pulse Ox 96% on R/A; ld1 18:46 BP 163 / 94; Pulse 87; Resp 22; Pulse Ox 95% ; ll1 19:19 BP 149 / 92; Pulse 93; Resp 18 S; Pulse Ox 96% on R/A; as6 15:50 Body Mass Index 35.75 (129.73 kg, 190.5 cm) ld1 15:50 Pain Scale: Adult ld1 ED Course: 15:40 Patient arrived in ED. rg4 15:40 James Rg MD is Private Physician. rg4 15:43 Jermain Santa MD is Attending Physician. bs3 15:44 Michael Carpio, TIARRA is Primary Nurse. ll1 15:51 Triage completed. ld1 15:51 Arm band placed on right wrist. EKG completed in triage. Results shown to MD. ld1 15:52 Patient has correct armband on for positive identification. Placed in gown. Bed in low ld1 position. Call light in reach. Side rails up X2. cafeteria monitor on. Pulse ox on. NIBP on. Door closed. Noise minimized. Warm blanket given. 15:52 No provider procedures requiring assistance completed. ld1 15:57 Inserted saline lock: 22 gauge in right upper arm, using aseptic technique. Blood ll1 collected. 16:07 XRAY Chest (1 view) In Process Unspecified. EDMS 18:18 CT Abd/Pelvis - IV Contrast Only In Process Unspecified. EDMS 18:47 James Rg MD is Hospitalizing Provider. bs3 19:40 Patient admitted, IV remains in place. as6 Administered Medications: 17:26 Drug: Furosemide IVP 40 mg Route: IVP; Site: right antecubital; ld1 19:39 Follow up: Response: No adverse reaction as6 18:46 Drug: Ketorolac IVP 15 mg Route: IVP; Site: right upper arm; ll1 19:39 Follow up: Response: No adverse reaction as6 19:19 Drug: morphine IVP or IV 2 mg Route: IVP; Infused Over: 4 mins; Site: right upper arm; as6 19:39 Follow up: Response: No adverse reaction as6 Medication: 15:52 VIS not applicable for this client. ld1 Intake: 18:00 PO: 100ml; Total: 100ml. ll1 Output: 18:00 Urine: 1000ml; Total: 1000ml. ll1 Outcome: 18:47 Decision to Hospitalize by Provider. bs3 19:40 Admitted to Med/surg accompanied by tech, via wheelchair, room 230, with chart, Report as6 called to Eric MAYEN 19:40 Condition: stable 19:40 Instructed on the need for admit. 19:40 Patient left the ED. as6 Signatures: Dispatcher [employer] Maile Zamorano rg4 Michael Carpio RN RN ll1 Destini Ortega RN RN ld1 Iain Smith RN RN as6 Jermain Santa MD MD bs3
[2023-03-20] MEDS ORDERED: KETOROLAC 30 MG/ML INJ ONE (18:50)
[2023-03-20] MEDS ORDERED: ACETAMINOPHEN 500 MG TAB PO PRN (18:55)
[2023-03-20] MEDS ORDERED: MORPHINE 2 MG/ML SYR ONE (19:24)
--- NOTE | 2023-03-20 19:27 | RAD REPORT ---
EXAM DESCRIPTION: CT - Abdomen Pelvis W Contrast - 03/20/2023 6:16 pm CLINICAL HISTORY: right sided abd pain COMPARISON: Abdomen Pelvis W Contrast dated 08/11/2022; Abdomen Pelvis W Contrast dated 08/26/20; Abdomen Pelvis W Contrast dated 10/12/2016; Chest Single View dated 03/20/2023 TECHNIQUE: Thin cut axial CT imaging of the abdomen and pelvis was performed following intravenous a dministration of Isovue 300. Multiplanar reformats were generated and reviewed. All CT scans are performed using dose optimization technique as appropriate and may include automated exposure control or mA/KV adjustment according to patient size. FINDINGS: Patchy left basilar airspace opacities, concerning for pneumonia. Elevation of the left he midiaphragm again noted. . The liver, spleen, and pancreas show no suspicious findings. Stable central pneumobilia. Air-fluid le luz within the gallbladder again seen. No findings to suggest progressive biliary ductal dilation. Symmetric renal function is seen with no hydronephrosis or suspicious renal mass. Stable left renal m id pole 2 centimeter hypoattenuating lesion, likely a cortical cyst No dilated bowel loops or bowel wall thickening. No free air, free fluid or inflammatory stranding. N o suspicious mass or bulky lymphadenopathy. Appendix is visualized, and is unremarkable Stable umbili jay fat containing hernia. Fusiform aneurysmal dilation of the mid to distal abdominal aorta, with an eurysm sac measuring up to 5 centimeter in greatest diameter. Stable mural thrombus anteriorly. The u rinary bladder is without significant finding. No suspicious bony findings. IMPRESSION: Patchy left basilar airspace opacities, concerning for pneumonia. No acute intra-abdominal process.
[2023-03-20 20:04] VITALS: BMI 36.9
[2023-03-20] MEDS: levoFLOXacin 500 MG TAB PO SCH (21:55)
[2023-03-20] MEDS: ALBUTEROL 2.5 MG/3 ML NEB SOL NEB PRN (22:00)
[2023-03-20] MEDS: IPRATROPIUM BROM 0.5MG/2.5ML NEB PRN (22:00)
[2023-03-20] MEDS ORDERED: GUAIFENESIN/DM 5 ML UCUP PO PRN (22:21)
[2023-03-21] MEDS: ALBUTEROL 2.5 MG/3 ML NEB SOL NEB PRN (03:10)
[2023-03-21] MEDS: IPRATROPIUM BROM 0.5MG/2.5ML NEB PRN (03:10)
[2023-03-21 03:41] LABS: Hematocrit 43.5 % (39.6-49.0); Lymphocytes % 11.7 % (15.3-44.8); MCV 85.9 fL (80-100); MPV 8.9 fL (7.6-11.3); RBC Red Blood Cell Count 5.06 M/uL (4.33-5.43)
[2023-03-21 04:09] LABS: Potassium 3.6 mEq/L (3.5-5.1)
[2023-03-21] MEDS ORDERED: PNEUMOCOCCAL VACCINE 0.5 ML IMVAC ONE (08:00)
[2023-03-21] MEDS: levoFLOXacin 500 MG TAB PO SCH (08:39)
[2023-03-21 08:51] VITALS: BP 152/93
[2023-03-21] MEDS ORDERED: FUROSEMIDE 20 MG/ 2ML VIAL IV SCH (09:00)
[2023-03-21 09:58] VITALS: TEMP 97.6; O2SAT 94
--- NOTE | 2023-03-21 10:15 | EKG ---
Test Date: 2023-03-20 Test Time: 15:51:12 Fruit Receiver: CHIDI MEASUREMENT RESULTS: Intervals: Rate: 95 AK: 158 QRSD: 152 QT: 414 QTc: 520 Kamuela: P: 52 AK: 158 QRS: 265 T: 44 INTERPRETIVE STATEMENTS: Normal sinus rhythm Right bundle branch block Abnormal ECG Compared to ECG 09/25/2022 14:36:19 Sinus arrhythmia no longer present Left posterior fascicular block no longer present Bifascicular block no longer present T-wave abnormality no longer present Possible ischemia no longer present Electronically Signed On 03-21-23 10:13:39 CDT by Floyd Grayson
--- NOTE | 2023-03-21 12:53 | P.SSS ---
Patient History Date of Service: 03/21/23 Reason for admission: COUGH AND SHORT OF BREATH History of Present Illness: MR. SPENCE IS MORBIDLY OBESE GM WITH DM, DJD AND IS ON NARCOTICS FOR PAIN. HE COMES FOR COUGH AND DYSPNEA FOR A WEEK. ON CT SCAN HE SHOWS PNEUMONIA. HIS SYMPTOMS DON'T SUGGEST CHF. HE WILL GO HOME ON L[place]QU[place]. HIS OXYGEN SAT IS 94% AFTER AMBULATION. Allergies No Known Allergies Allergy (Verified 03/20/23 20:02) Home Medications: Finasteride [Proscar*] 5 mg PO DAILY 09/03/19 Tamsulosin [Flomax*] 0.4 mg PO BEDTIME 09/03/19 Hydrocodone Bit/Acetaminophen [Paauilo 10-325 Tablet] 1 tab PO Q6H PRN 09/26/22 Lisinopril/Hydrochlorothiazide [Lisinopril-Hctz 10-12.5 mg Tab] 1 tab PO DAILY 09/26/22 Metformin HCl 1 tab PO BID 09/26/22 Rosuvastatin Calcium 1 tab PO DAILY 09/26/22 Sulfamethoxazole/Trimethoprim [Sulfamethoxazole-Tmp Ds Tablet] 1 each PO BID #28 09/30/22 - Past Medical/Surgical History Has patient received pneumonia vaccine in the past: No Diabetic: Yes -: CAD -: NIDDM -: obstructive sleep apnea -: Chronic back pain -: Hyperlipedemia -: Heart cath/with stents x3 -: laminectomy -: coronary artery bypass graft - Family History Brother -: Heart disease - Social History Smoking Status: Never smoker Alcohol use: No CD- Drugs: No Caffeine use: No Place of Residence: Home Review of Systems 10-point ROS is otherwise unremarkable Physical Examination - Vital Signs Temperature: 97.6 F Blood Pressure: 152/93 Pulse: 86 Respirations: 14 Pulse Ox (%): 94 - Physical Exam General: Alert, In no apparent distress HEENT: Atraumatic, PERRLA, Mucous membr. moist/pink, EOMI, Sclerae nonicteric Neck: Supple, 2+ carotid pulse no bruit, No LAD, Without JVD or thyroid abnormality Respiratory: Clear to auscultation bilaterally, Normal air movement Cardiovascular: Regular rate/rhythm, Normal S1 S2 Gastrointestinal: Normal bowel sounds, No tenderness Musculoskeletal: No tenderness Integumentary: No rashes Neurological: Normal gait, Normal speech, Normal strength at 5/5 x4 extr, Normal tone, Normal affect Lymphatics: No axilla or inguinal lymphadenopathy - Studies Laboratory Data (last 24 hrs) 03/20/23 15:57: PT 11.2, INR 1.02 03/20/23 15:57: WBC 6.10, Hgb 14.8, Hct 44.7, Plt Count 151 L 03/20/23 15:57: Sodium 137, Potassium 3.7, BUN 18, Creatinine 1.10, Glucose 311 H, Magnesium 1.8, Total Bilirubin 0.7, AST 9 L, ALT 19, Alkaline Phosphatase 76 - Diagnosis (Problem(s)) (1) Bacterial pneumonia Status: Acute Plan: HE WANTS TO GO HOME. I SUSPECT HE WILL DO WELL ON ORAL LEVAQUIN. HE IS STABLE FOR HOME. I ORDERED COVID, RSV AND FLU TEST AND ALL WERE NEGATIVE. - Disposition Disposition: ROUTINE DISCHARGE Condition: FAIR
== END 2023-03-21 10:13 | disposition home or self-care (01) ==
LOC: ER 15:39 → ERHOLD 18:53 → 2ND 19:35
PROVIDERS: ADMIT Internal Medicine; ATTEND Internal Medicine
DX: J15.9 Unspecified bacterial pneumonia (principal); E66.01 Morbid (severe) obesity due to excess calories; E11.9 Type 2 diabetes mellitus without complications; I25.10 Atherosclerotic heart disease of native coronary artery without angina pectoris; Z95.5 Presence of coronary angioplasty implant and graft; Z68.37 Body mass index [BMI] 37.0-37.9, adult; Z20.822 Contact with and (suspected) exposure to COVID-19; Z23 Encounter for immunization
CPT/HCPCS: 93005; 85025 ×2; 80048 ×2; 36415; 83735; 85610; 82947; 80076; 84484 ×2; 83880 ×2; 87635; 87807; 87804 ×2; 74177; 71045; 90471; 90732; 99285; Q9967; J1940 ×2; J7613 ×2; J7644 ×2; J2270; G0378 ×3

== ENCOUNTER → 2023-12-21 | Emergency (ER) | payer OTHER ==
[2023-12-21 11:36] LABS: Absolute Eosinophils 0.1 K/uL (0-0.5); Absolute Lymphocytes (CBC) 1.7 K/uL (0.7-4.9); Basophils % 0.7 % (0-1.3); Eosinophils % 1.5 % (0-4.4); Hematocrit 45.3 % (39.6-49.0); Hemoglobin 15.3 g/dL (13.6-17.9); Lymphocytes % 36.7 % (15.3-44.8); MPV 8.9 fL (7.6-11.3); Platelets 128 thou/uL (152-406); RBC Red Blood Cell Count 5.21 M/uL (4.33-5.43)
[2023-12-21 11:37] LABS: Protime INR 0.98
[2023-12-21 12:17] LABS: Magnesium 1.8 mg/dL (1.6-2.4)
--- NOTE | 2023-12-21 12:31 | RAD REPORT ---
EXAM DESCRIPTION: RADChest Single View12/21/2023 11:54 am CLINICAL HISTORY: CHEST PAIN COMPARISON: Chest Pa And Lat (2 Views) dated 03/28/2023; Chest Single View dated 03/20/2023; Chest Sing le View dated 09/25/2022; Chest Single View dated 08/11/2022 TECHNIQUE: Portable AP view of the chest. FINDINGS: Decreased inspiratory effort limits evaluation. The lungs are clear. No pneumothorax or e ffusion. The cardiomediastinal contours are unchanged, with sequelae of CABG. IMPRESSION: No acute cardiopulmonary process.
--- NOTE | 2023-12-21 14:16 | ER ---
Nurse's Notes [facility] Name: Armond Beltrán Age: 68 yrs Sex: Male : 1955 Arrival Date: 12/21/2023 Time: 11:00 Bed 3 Private MD: Diagnosis: Chest pain, unspecified;Essential (primary) hypertension Presentation: 12/20 11:03 Chief complaint: Patient states: LEFT CHEST PAIN WITH SOB, CARDIAC HX. Coronavirus bp screen: At this time, the client does not indicate any symptoms associated with coronavirus-19. Ebola Screen: No symptoms or risks identified at this time. Initial Sepsis Screen: Does the patient meet any 2 criteria? No. Patient's initial sepsis screen is negative. Does the patient have a suspected source of infection? No. Patient's initial sepsis screen is negative. Risk Assessment: Do you want to hurt yourself or someone else? Patient reports no desire to harm self or others. Onset of symptoms was December 21, 2023 at 10:00. 11:03 Method Of Arrival: Wheelchair bp 11:03 Acuity: KEVIN 3 bp Triage Assessment: 11:04 General: Appears distressed, uncomfortable, Behavior is calm, cooperative, appropriate bp for age. Pain: Complains of pain in chest. Cardiovascular: Rhythm is sinus rhythm. Historical: - Allergies: 11:04 NKA; bp - PMHx: 11: CABG; Chronic pain; Diabetes - NIDDM; Hypercholesterolemia; Hypertension; Myocardial bp infarction; - PSHx: 11:04 heart bypass; bp - Immunization history:: Adult Immunizations up to date. - Social history:: Smoking status: unknown. Screenin:26 [facility] ED Fall Risk Assessment (Adult) History of falling in the last 3 months, kc6 including since admission No falls in past 3 months (0 pts) Confusion or Disorientation No (0 pts) Intoxicated or Sedated No (0 pts) Impaired Gait No (0 pts) Mobility Assist Device Used No (0 pt) Altered Elimination No (0 pt) Score/Fall Risk Level 0 - 2 = Low Risk. Abuse screen: Denies threats or abuse. Denies injuries from another. Nutritional screening: No deficits noted. Tuberculosis screening: No symptoms or risk factors identified. Assessment: 11:27 General: Appears in no apparent distress. comfortable, well groomed, well developed, kc6 Behavior is calm, cooperative, appropriate for age. Pain: Complains of pain in chest Pain does not radiate. Pain began 1 hour ago. Neuro: Level of Consciousness is awake, alert, obeys commands, Oriented to person, place, time, situation, Appropriate for age. Cardiovascular: Capillary refill < 3 seconds. Respiratory: Airway is patent Trachea midline Respiratory effort is even, unlabored, Respiratory pattern is regular, symmetrical. GI: No signs and/or symptoms were reported involving the gastrointestinal system. : No signs and/or symptoms were reported regarding the genitourinary system. EENT: No signs and/or symptoms were reported regarding the EENT system. Derm: No signs and/or symptoms reported regarding the dermatologic system. Skin is intact, is healthy with good turgor, Skin is pink, warm \T\ dry. Musculoskeletal: No signs and/or symptoms reported regarding the musculoskeletal system. Circulation, motion, and sensation intact. Capillary refill < 3 seconds, Range of motion: intact in all extremities. 12:27 Reassessment: Patient appears in no apparent distress at this time. No changes from kc6 previously documented assessment. Patient and/or family updated on plan of care and expected duration. Pain level reassessed. Patient is alert, oriented x 3, equal unlabored respirations, skin warm/dry/pink. 13:27 Reassessment: Patient appears in no apparent distress at this time. No changes from kc6 previously documented assessment. Patient and/or family updated on plan of care and expected duration. Pain level reassessed. Patient is alert, oriented x 3, equal unlabored respirations, skin warm/dry/pink. Vital Signs: 11:03 BP 169 / 97; Pulse 91; Resp 16; Temp 98; Pulse Ox 98% ; bp 11:28 BP 140 / 84; Pulse 82; Resp 16 S; Pulse Ox 92% on R/A; kc6 12:54 BP 164 / 95; Pulse 76; Resp 15; Pulse Ox 99% ; ko1 13:30 BP 161 / 94; Pulse 78; Resp 16 S; Pulse Ox 98% on R/A; kc6 ED Course: 11:01 Patient arrived in ED. im 11:04 Triage completed. bp 11:04 Moy Ortega DO is Attending Physician. ms3 11:04 Arm band placed on. bp 11:26 Patterson, Jenae, RN is Primary Nurse. kc6 11:26 Inserted saline lock: 20 gauge in right antecubital area, using aseptic technique. kc6 Blood collected. Patient maintains SpO2 saturation greater than 95% on room air. 11:27 Patient has correct armband on for positive identification. Placed in gown. Bed in low kc6 position. Call light in reach. Side rails up X2. Adult w/ patient. Client placed on continuous cardiac and pulse oximetry monitoring. NIBP monitoring applied. youth nutritional monitor on. 11:56 XRAY Chest (1 view) In Process Unspecified. EDMS 12:50 Troponin High Sensitivity Sent. ko1 12:57 Provided Education on: ns. Door closed. Noise minimized. Lights dimmed. Warm blanket ko1 given. Verbal reassurance given. 12:57 No provider procedures requiring assistance completed. Repeat lab(s) drawn. by de, sent ko1 to lab. 14:14 Master Noel MD is Referral Physician. ms3 14:21 IV discontinued, intact, bleeding controlled, No redness/swelling at site. Pressure kc6 dressing applied. Administered Medications: No medications were administered Medication: 14:21 VIS not applicable for this client. kc6 Outcome: 14:15 Discharge ordered by . ms3 14:21 Discharged to home ambulatory, with significant other, kc6 14:21 Condition: improved 14:21 Discharge instructions given to patient, Instructed on discharge instructions, follow up and referral plans. Demonstrated understanding of instructions, follow-up care, 14:22 Patient left the ED. kc6 Signatures: Dispatcher [employer] EDMS Luis Boyd, RN RN Moy Calvillo DO DO ms3 Jenae Patterson, RN RN kc6 Radha Osorio, RN RN ko1 Naima Simmons im
--- NOTE | 2023-12-21 14:16 | EDPHYS ---
Physician Documentation [facility] Name: Armond Beltrán Age: 68 yrs Sex: Male : 1955 Arrival Date: 12/21/2023 Time: 11:00 Bed 3 Private MD: ED Physician Moy Ortega HPI: 12/20 13:38 This 68 yrs old Male presents to ER via Wheelchair with complaints of Chest ms3 Pain, Shortness Of Breath. 13:38 68-year-old male with past medical history of CABG, chronic pain, diabetes, ms3 hypercholesterolemia, hypertension, myocardial infarction presents to the emergency department for chest pain and shortness of breath that began 30 minutes prior to arrival. Patient states pain is substernal rated a 5/10 and denies radiation. Patient denies nausea, vomiting, sweating. Patient denies any alleviating or inciting factors.. Historical: - Allergies: 11:04 NKA; bp - PMHx: 11:04 CABG; Chronic pain; Diabetes - NIDDM; Hypercholesterolemia; Hypertension; Myocardial bp infarction; - PSHx: 11:04 heart bypass; bp - Immunization history:: Adult Immunizations up to date. - Social history:: Smoking status: unknown. ROS: 13:38 Constitutional: Negative for fever, and chills. Neck: Negative for injury, pain, and ms3 swelling, 13:38 Respiratory: Negative for shortness of breath, cough, wheezing, and pleuritic chest pain, Abdomen/GI: Negative for abdominal pain, nausea, vomiting, diarrhea, and constipation, Skin: Negative for injury, rash, and discoloration, 13:38 Cardiovascular: Positive for chest pain, Exam: 13:38 Constitutional: This is a well developed, well nourished patient who is awake, alert, ms3 and in no acute distress. Head/Face: Normocephalic, atraumatic. Neck: Trachea midline, no cervical lymphadenopathy. Supple, full range of motion without nuchal rigidity, or vertebral point tenderness. No Meningismus. Chest/axilla: Normal chest wall appearance and motion. Nontender with no deformity. Cardiovascular: Regular rate and rhythm with a normal S1 and S2. No gallops, murmurs, or rubs. Normal PMI, no JVD. No pulse deficits. Respiratory: Lungs have equal breath sounds bilaterally, clear to auscultation and percussion. No rales, rhonchi or wheezes noted. No increased work of breathing, no retractions or nasal flaring. Abdomen/GI: Soft, non-tender, with normal bowel sounds. No distension or tympany. No guarding or rebound. No evidence of tenderness throughout. Skin: Warm, dry with normal turgor. Normal color with no rashes, no lesions, and no evidence of cellulitis. MS/ Extremity: Pulses equal, no cyanosis. Neurovascular intact. Full, normal range of motion. 13:38 ECG was reviewed by the Attending Physician. ms3 Vital Signs: 11:03 BP 169 / 97; Pulse 91; Resp 16; Temp 98; Pulse Ox 98% ; bp 11:28 BP 140 / 84; Pulse 82; Resp 16 S; Pulse Ox 92% on R/A; kc6 12:54 BP 164 / 95; Pulse 76; Resp 15; Pulse Ox 99% ; ko1 13:30 BP 161 / 94; Pulse 78; Resp 16 S; Pulse Ox 98% on R/A; kc6 MDM: 11:37 Patient medically screened. ms3 13:34 HEART Score: History: Slightly Suspicious (0), ECG: Non specific repolarization ms3 disturbance / LBTB / PM (1), Age: > 45 and < 65 years (1), Risk Factors: > or = 3 Risk factors for atherosclerotic disease (2), [Hypercholesterolemia] [Hypertension] [DM] Troponin: < or = 1 x Normal Limit (0), Total Score = 4. 14:15 Differential diagnosis: abnormal EKG, acute myocardial infarction, coronary artery ms3 disease. 14:16 The patient was not given aspirin in the Emergency Department. Patient reports taking ms3 aspirin within the past 24 hours. Data reviewed: vital signs, nurses notes, lab test result(s), EKG, radiologic studies, and as a result, I will discharge patient. Consideration of Admission/Observation Escalation of care including admission/observation considered. Discussed case with Dr Noel and patient can see him in clinic. Management of patient was discussed with the following: Director Of Partner Marketing: Dr Noel. Independent interpretation of the following test(s) in the Emergency Department EKG: See my EKG interpretation above. Counseling: I had a detailed discussion with the patient and/or guardian regarding the historical points, exam findings, and any diagnostic results supporting the discharge/admit diagnosis, lab results, radiology results, the need for outpatient follow up, to return to the emergency department if symptoms worsen or persist or if there are any questions or concerns that arise at home. Special discussion: Based on the patient's history, exam, and Dx evaluation, there is no indication for emergent intervention or inpatient Tx. It is understood by the patient/guardian that if the Sx's persist or worsen they need to return immediately for re-evaluation. ED course: Discussed labs, EKG, chest x-ray findings with patient. Patient given a copy of his labs and chest x-ray. Patient to follow-up with Dr. Noel in 1 to 2 days[address] Discuss[address] case with Dr. Noel and patient to follow-up with him. Discussed conversation with Dr. Noel with patient and patient is agreeable to follow-up outpatient with Dr. Noel. All questions were answered. Return precautions discussed include worsening symptoms, shortness of breath, nausea, vomiting, sweating, or any concerns. On reevaluation patient is alert and oriented x 4, in no apparent distress, nontoxic-appearing, ambulatory emergency room, speaking full sentences. 12/20 11:05 Order name: Basic Metabolic Panel; Complete Time: 12:23 ms3 12/20 11:05 Order name: CBC with Diff; Complete Time: 12:23 ms3 12/20 11:05 Order name: Magnesium; Complete Time: 12:23 ms3 12/20 11:05 Order name: NT PRO-BNP; Complete Time: 12:23 ms3 12/20 11:05 Order name: PT-INR; Complete Time: 12:23 ms3 12/20 11:05 Order name: Troponin HS; Complete Time: 12:23 ms3 12/20 12:39 Order name: Troponin High Sensitivity; Complete Time: 13:24 ms3 12/20 11:05 Order name: XRAY Chest (1 view); Complete Time: 12:38 ms3 12/20 11:05 Order name: EKG; Complete Time: 11:05 ms3 12/20 11:05 Order name: Cardiac monitoring; Complete Time: 11:26 ms3 12/20 11:05 Order name: EKG - Nurse/Tech; Complete Time: 11:26 ms3 12/20 11:05 Order name: IV Saline Lock; Complete Time: 11:26 ms3 12/20 11:05 Order name: Labs collected and sent; Complete Time: ms3 12/20 11:05 Order name: O2 Per Protocol; Complete Time: ms3 12/20 11:05 Order name: O2 Sat Monitoring; Complete Time: ms EC:38 Rate is 83 beats/min. Rhythm is regular. Right axis deviation noted. SD interval is ms3 normal. QRS interval is prolonged. QT interval is normal. Clinical impression: Normal ECG and with RBBB. Interpreted by me. Reviewed by me. Administered Medications: No medications were administered Disposition Summary: 12/21/23 14:15 Discharge Ordered Notes: Location: Home ms3 Condition: Stable ms3 Diagnosis - Chest pain, unspecified ms3 - Essential (primary) hypertension ms3 Followup: ms3 - With: Master Noel MD - When: 1 - 2 days - Reason: Recheck today's complaints Discharge Instructions: - Discharge Summary Sheet ms3 - Nonspecific Chest Pain, Adult ms3 - Hypertension, Adult ms3 Forms: - Medication Reconciliation Form ms3 - Thank You Letter ms3 - Antibiotic Education ms3 - Prescription Opioid Use ms3 - Patient Portal Instructions ms3 - Leadership Thank You Letter ms3 Signatures: Dispatcher [employer] Luis Bradford, RN RN Moy Calvillo DO DO ms3
[2023-12-21 14:40] VITALS: BP 161/94; TEMP 98; O2SAT 98
--- NOTE | 2023-12-22 14:17 | EKG ---
Test Date: 2023-12-21 Test Time: 11:09:10 [place] Machine Operator: BP MEASUREMENT RESULTS: Intervals: Rate: 83 DC: 162 QRSD: 174 QT: 422 QTc: 495 [place]: P: 66 DC: 162 QRS: 266 T: -5 INTERPRETIVE STATEMENTS: Normal sinus rhythm with sinus arrhythmia Right bundle branch block Abnormal ECG Compared to ECG 03/20/2023 15:51:12 No significant changes Electronically Signed On 12-22-23 14:13:16 WELLNESS INSTRUCTOR by Master Noel
== END ==
LOC: ER 11:00
DX: R07.9 Chest pain, unspecified (principal); I10 Essential (primary) hypertension; E11.9 Type 2 diabetes mellitus without complications; Z95.1 Presence of aortocoronary bypass graft
CPT/HCPCS: 36415; 71045; 80048; 83735; 83880; 84484; 85025; 85610; 93005; 99285

== ENCOUNTER 2024-10-01 12:27 | Emergency (ER) | payer OTHER ==
[2024-10-01] MEDS ORDERED: NA CHLORIDE 0.9% 1,000 ML ONE (14:13)
[2024-10-01] MEDS ORDERED: ONDANSETRON 4 MG/2 ML VIAL ONE (14:13)
[2024-10-01] MEDS ORDERED: MORPHINE 4 MG/ML SYR ONE (14:13)
[2024-10-01 14:30] LABS: Absolute Eosinophils 0.1 K/uL (0-0.5); Absolute Lymphocytes (CBC) 1.6 K/uL (0.7-4.9); Absolute Monocytes 0.4 K/uL (0.1-1.3); Absolute Neutrophil 4.1 K/uL (1.8-8.0); Basophils % 0.6 % (0-1.3); Eosinophils % 1.6 % (0-4.4); Hematocrit 43.5 % (39.6-49.0); Hemoglobin 14.5 g/dL (13.6-17.9); Lymphocytes % 25.4 % (15.3-44.8); MCH 28.9 pg (27.0-35.0); MCHC 33.3 g/dL (32.0-36.0); MCV 86.9 fL (80-100); MPV 9.2 fL (7.6-11.3); Monocytes % 6.6 % (3.3-12.3); Neutrophils % 65.8 % (41.7-73.7); Nucleated Red Blood Cells % 0.1 % (0-0); Platelets 136 thou/uL (152-406); RBC Red Blood Cell Count 5.01 M/uL (4.33-5.43); Red Cell Distribution Width 13.9 % (12.1-15.2)
[2024-10-01 14:58] LABS: Specific Gravity 1.015 (1.005-1.030); Sqamous Epithelial <5 /HPF (None Seen); Urine Bacteria None Seen /HPF (<20); Urine Bilirubin NEGATIVE (Negative); Urine Blood Negative (Negative); Urine Clarity Clear (Clear); Urine Color Light-Yellow (Yellow); Urine Culture Reflex Order NOT NEEDED; Urine Glucose 4+ (Over) (Negative); Urine Ketones NEGATIVE (Negative); Urine Microscopic Reflex YN ORDER UMIC; Urine Mucus Slight /HPF (None Seen); Urine Nitrite NEGATIVE (Negative); Urine Protein NEGATIVE (Negative); Urine RBC <5 /HPF (None Seen); Urine Urobilinogen Normal (Normal); Urine WBC <5 /HPF (<5); Urine pH 5.5 (5.0-7.0)
[2024-10-01 14:59] LABS: Albumin 3.3 g/dL (3.4-5.0); Albumin/Globulin Ratio 0.9 (1.1-1.8); Bilirubin Total 0.5 mg/dL (0.2-1.0); Globulin 3.5 g/dL (2.3-3.5); Protein, Total 6.8 g/dL (6.4-8.2)
[2024-10-01] MEDS ORDERED: CEFTRIAXONE 1000 MG/VIAL ONE (15:19)
[2024-10-01] MEDS ORDERED: KETOROLAC 30 MG/ML INJ ONE (15:19)
[2024-10-01] MEDS ORDERED: CIPROFLOXACIN HCL 500 MG TAB ONE (15:19)
[2024-10-01] MEDS ORDERED: DIAZEPAM 5 MG TABLET ONE (15:20)
--- NOTE | 2024-10-01 15:58 | RAD REPORT ---
EXAMINATION: CT Stone Protocol CLINICAL INDICATION: Male, 69 years old. Flank pain;Pain TECHNIQUE: CT abdomen and pelvis was performed, without IV contrast, as per department protocol. Axia l, sagittal and coronal reconstructions were obtained. One or more of the following dose reduction techniques were used: Automated exposure control, adjustment of the mA and kV according to the patien t size, and iterative reconstruction. Unless otherwise specified, incidental findings do not require dedicated imaging follow-up. COMPARISON: 03/20/2023 FINDINGS: The lack of intravenous contrast limits the sensitivity of this exam for evaluation of solid visceral organs, vascular structures, and retroperitoneum. LOWER CHEST: The visualized lung bases are clear. LIVER: Normal in size and contour. No focal lesion. BILIARY SYSTEM: Redemonstration of central pneumobilia, with some air-fluid level at the fundus of th e gallbladder. Findings may relate to incompetence of the sphincter of Oddi, please correlate for history of prior intervention SPLEEN: Normal size. No focal lesion. PANCREAS: No mass, ductal dilation, or mansoor-pancreatic fluid. ADRENALS: Normal; no mass. KIDNEYS AND URETERS: Normal size and contour. No hydronephrosis. URINARY BLADDER: Normal contour. GASTROINTESTINAL TRACT: Air-fluid levels within nondistended mid small bowel loops in the left hemiab domen, with gradual transition to nondistended small bowel, nonspecific. No evidence of bowel obstruction, significant free fluid, free air or abscess. APPENDIX: Normal appendix. LYMPH NODES: No lymphadenopathy. MUSCULOSKELETAL: No acute or suspicious osseous abnormality. ADDITIONAL FINDINGS: Sequelae of aortobiiliac stent grafting. Infrarenal aneurysm sac measures 4.9 x 4.7 cm in greatest dimensions, essentially stable. Mild prostatic calcifications. Umbilical hernia containing fat, measuring 5.3 cm in greatest axial dimension, stable. IMPRESSION: Short segment air-fluid levels within nondistended left hemiabdomen small bowel with no focal transit ion point. Findings are nonspecific, and may relate to mild enteritis. No other acute or concerning abnormalities in the abdomen or pelvis, with evaluation limited by lack of IV contrast. Interval sequelae of aortobiiliac stent grafting. Size of the infrarenal abdominal aortic aneurysm sa c appears stable. Other stable findings as above.
--- NOTE | 2024-10-01 16:00 | EDPHYS ---
Physician Documentation [facility] Name: Armond Beltrán Age: 69 yrs Sex: Male : 1955 Arrival Date: 10/01/2024 Time: 12:27 Bed 13 Private MD: COLLEEN Physician Rico Quintero HPI: 10/01 15:07 This 69 yrs old Male presents to ER via Wheelchair with complaints of Low Back corina Pain. 15:07 The patient presents with pain that is acute, with no known mechanism of injury, and corina decreased range of motion. The symptoms are located in the low back, left low back and left mid back. The pain does not radiate. The problem was sustained from twisting. Onset: The symptoms/episode began/occurred this morning. Modifying factors: The patient symptoms are alleviated by remaining still, the patient symptoms are aggravated by any movement, movement. Severity of symptoms: At their worst the symptoms were moderate, in the emergency department the symptoms are unchanged. The patient has experienced similar episodes in the past, a few times. Historical: - Allergies: 12:52 NKA; cm10 - PMHx: 12:52 CABG; Chronic pain; Diabetes - NIDDM; Hypercholesterolemia; Hypertension; Myocardial cm10 infarction; - PSHx: 12:52 heart bypass; cm10 - Immunization history:: Adult Immunizations up to date. - Infectious Disease History:: Denies. - Social history:: Smoking status: Patient denies any tobacco usage or history of. - Family history:: not pertinent. ROS: 15:07 Constitutional: Negative for fever, chills, and weight loss, Eyes: Negative for injury, corina pain, redness, and discharge, ENT: Negative for injury, pain, and discharge, Neck: Negative for injury, pain, and swelling, Cardiovascular: Negative for chest pain, palpitations, and edema, Respiratory: Negative for shortness of breath, cough, wheezing, and pleuritic chest pain, Abdomen/GI: Negative for abdominal pain, nausea, vomiting, diarrhea, and constipation, : Negative for injury, bleeding, discharge, and swelling, MS/Extremity: Negative for injury and deformity, Skin: Negative for injury, rash, and discoloration, Neuro: Negative for headache, weakness, numbness, tingling, and seizure, 15:07 Back: Positive for decreased range of motion, pain at rest, Exam: 15:07 Constitutional: This is a well developed, well nourished patient who is awake, alert, corina and in no acute distress. Head/Face: Normocephalic, atraumatic. Eyes: Pupils equal round and reactive to light, extra-ocular motions intact. Lids and lashes normal. Conjunctiva and sclera are non-icteric and not injected. Cornea within normal limits. Periorbital areas with no swelling, redness, or edema. ENT: Nares patent. No nasal discharge, no septal abnormalities noted. Tympanic membranes are normal and external auditory canals are clear. Oropharynx with no redness, swelling, or masses, exudates, or evidence of obstruction, uvula midline. Mucous membranes moist. Neck: Trachea midline, no thyromegaly or masses palpated, and no cervical lymphadenopathy. Supple, full range of motion without nuchal rigidity, or vertebral point tenderness. No Meningismus. Chest/axilla: Normal chest wall appearance and motion. Nontender with no deformity. No lesions are appreciated. Cardiovascular: Regular rate and rhythm with a normal S1 and S2. No gallops, murmurs, or rubs. Normal PMI, no JVD. No pulse deficits. Respiratory: Lungs have equal breath sounds bilaterally, clear to auscultation and percussion. No rales, rhonchi or wheezes noted. No increased work of breathing, no retractions or nasal flaring. Abdomen/GI: Soft, non-tender, with normal bowel sounds. No distension or tympany. No guarding or rebound. No evidence of tenderness throughout. Male : Normal genitalia with no discharge or lesions. Skin: Warm, dry with normal turgor. Normal color with no rashes, no lesions, and no evidence of cellulitis. MS/ Extremity: Pulses equal, no cyanosis. Neurovascular intact. Full, normal range of motion., bilateral aka Neuro: Awake and alert, GCS 15, oriented to person, place, time, and situation. Cranial nerves II-XII grossly intact. Motor strength 5/5 in all extremities. Sensory grossly intact. Cerebellar exam normal. Normal gait. Psych: Awake, alert, with orientation to person, place and time. Behavior, mood, and affect are within normal limits. 15:07 Back: ROM is painful, normal spinal alignment noted, CVA tenderness, that is mild, is noted on the left, muscle spasm, is appreciated in the left low back and left mid back, Vital Signs: 12:51 BP 139 / 85; Pulse 84; Resp 16; Temp 98.3; Pulse Ox 97% on R/A; Weight 133.81 kg; cm10 Height 6 ft. 1 in. ; Pain 10/10; 14:00 BP 130 / 76; Pulse 63; Resp 18; Pulse Ox 98% ; me1 15:00 BP 164 / 99; Pulse 60; Resp 18; Pulse Ox 98% ; me1 16:00 BP 156 / 92; Pulse 66; Resp 18; Pulse Ox 98% on R/A; me1 12:51 Body Mass Index 38.92 (133.81 kg, 185.42 cm) cm10 12:51 Pain Scale: Adult cm10 MDM: 12:40 Medical Screening Exam initiated corina 15:10 Differential diagnosis: arthritis, strain, fracture, sciatica, contusion, Herniated corina disc UTI. Data reviewed: vital signs, nurses notes, lab test result(s), radiologic studies, CT scan. Consideration of Admission/Observation Escalation of care including admission/observation considered. I considered the following discharge prescriptions or medication management in the emergency department Medications were administered in the Emergency Department. See MAR. Independent interpretation of the following test(s) in the Emergency Department CT Scan: My interpretation is CT ABD PELVIS. Test considered but Not performed: MRI: NO MRI SPINE, LUMBAR. Historians other than the Patient: EMS: EMS. PATIENT IS VERY WELL INFORMED. Care significantly affected by the following chronic conditions: Diabetes, Hypertension, Obesity, CA , CHRONIC PAIN. Counseling: I had a detailed discussion with the patient and/or guardian regarding the historical points, exam findings, and any diagnostic results supporting the discharge/admit diagnosis, lab results, radiology results, the need for outpatient follow up, for definitive care, a family practitioner. 10/01 14:07 Order name: CBC with Diff; Complete Time: 15:00 [facility] 10/01 14:07 Order name: CMP; Complete Time: 15:00 [facility] 10/01 14:07 Order name: Lipase; Complete Time: 15:00 [facility] 10/01 14:07 Order name: Urinalysis w/ reflexes; Complete Time: 15:00 [facility] 10/01 14:07 Order name: CT Stone Protocol; Complete Time: 15:59 [facility] 10/01 14:07 Order name: IV Saline Lock; Complete Time: 14:16 [facility] 10/01 14:07 Order name: Labs collected and sent; Complete Time: 14:16 corina Administered Medications: 14:25 Drug: Ondansetron IVP 4 mg IVP once; over 2 minutes Route: IVP; Site: left forearm; me1 15:17 Follow up: Response: No adverse reaction; Nausea is decreased me1 14:25 Drug: morphine IVP or IV 4 mg IVP once over 4 mins Route: IVP; Infused Over: 4 mins; me1 Site: right forearm; 15:17 Follow up: Response: No adverse reaction; Pain is decreased me1 14:25 Drug: NS 0.9% IV 1000 ml IV at 1 bolus Per protocol; to be given as a bolus over 60 me1 minutes Route: IV; Rate: 1 bolus; Site: right forearm; 16:15 Follow up: Response: No adverse reaction; IV Status: Completed infusion; IV Intake: me1 1000ml 15:24 Drug: Rocephin IV 1 grams IV at per protocol once; Given slow IV push per pharmacy me1 instructions Route: IV; Rate: per protocol; Site: right forearm; 15:24 Follow up: Response: No adverse reaction; IV Status: Completed infusion me1 15:24 Drug: Ciprofloxacin PO 500 mg PO once Route: PO; me1 15:25 Follow up: Response: No adverse reaction me1 15:24 Drug: Ketorolac IVP 30 mg IVP once Route: IVP; Site: right forearm; me1 15:25 Follow up: Response: No adverse reaction; Pain is decreased me1 15:24 Drug: Diazepam PO 10 mg PO once Route: PO; me1 15:25 Follow up: Response: No adverse reaction me1 Disposition Summary: 10/01/24 16:00 Discharge Ordered Notes: Location: Home corina Problem: new corina Symptoms: have improved corina Condition: Stable corina Diagnosis - Low back pain corina - Sprain of other parts of lumbar spine and pelvis corina - Intervertebral disc disorders with radiculopathy, lumbar region corina - Obesity, unspecified corina - Other chronic pain corina - Other viral enteritis - NONSPECIFIC corina Followup: corina - With: Private Physician - When: 2 - 3 days - Reason: Recheck today's complaints, Continuance of care, Re-evaluation by your physician Followup: corina - With: Orlando Michael MD - When: 2 - 3 days - Reason: Recheck today's complaints, Re-evaluation by your physician Discharge Instructions: - Discharge Summary Sheet corina - Acute Back Pain, Adult corina - Chronic Back Pain corina - Flank Pain, Adult corina - Herniated Disk corina - Lumbosacral Radiculopathy corina - Musculoskeletal Pain corina - Obesity, Adult corina - Chronic Back Pain, [id number] [facility] Forms: - Medication Reconciliation Form [facility] - Antibiotic Education [facility] - Prescription Opioid Use [facility] - Patient Portal Instructions [facility] - Leadership Thank You Letter [facility] Prescriptions: - acetaminophen-codeine 300-30 mg Oral tablet - take 2 tablet ORAL route every 6 hours as needed for pain; 24 tablet; Refills: [facility] 0, Product Selection Permitted - dexamethasone 4 mg Oral tablet - take 1 tablet ORAL route daily; 5 tablet; Refills: 0, Product Selection [facility] Permitted - diclofenac sodium 50 mg Oral tablet, delayed release (enteric coated) - take 1 tablet ORAL route daily; 21 tablet; Refills: 0, Product Selection [facility] Permitted - Cipro 250 mg Oral tablet - take 1 tablet ORAL route every 12 hours; 14 tablet; Refills: 0, Product [facility] Selection Permitted - methocarbamol 750 mg Oral tablet - take 1 tablet ORAL route 4 times per day; 40 tablet; Refills: 0, Product [facility] Selection Permitted Signatures: Dispatcher [employer] Rico Marie MD MD cha Martinez, Clarissa, RN RN cm10 Fabiana Denney RN RN me1
--- NOTE | 2024-10-01 16:00 | ER ---
Nurse's Notes [facility] Name: Armond Beltrán Age: 69 yrs Sex: Male : 1955 Arrival Date: 10/01/2024 Time: 12:27 Bed 13 Private MD: Diagnosis: Low back pain;Sprain of other parts of lumbar spine and pelvis;Intervertebral disc disorders with radiculopathy, lumbar region;Obesity, unspecified;Other chronic pain;Other viral enteritis-NONSPECIFIC Presentation: 10/01 12:51 Chief complaint: Patient states: LEFT SIDED FLANK PAIN ONSET THIS MORNING. PT STATES cm10 THAT THE PAIN IS WORSE WHEN HE TRIES TO WALK. Coronavirus screen: Client denies travel out of the [place] in the last 14 days. Ebola Screen: Patient denies travel to an Ebola-affected area in the 21 days before illness onset. No symptoms or risks identified at this time. Initial Sepsis Screen: Does the patient meet any 2 criteria? No. Patient's initial sepsis screen is negative. Does the patient have a suspected source of infection? No. Patient's initial sepsis screen is negative. Risk Assessment: Do you want to hurt yourself or someone else? Patient reports no desire to harm self or others. Onset of symptoms was October 01, 2024. 12:51 Method Of Arrival: Wheelchair cm10 12:51 Acuity: KEVIN 3 cm10 Triage Assessment: 12:52 General: Appears in no apparent distress. uncomfortable, Behavior is calm, cooperative. cm10 Pain: Complains of pain in left flank Pain does not radiate. Pain currently is 8 out of 10 on a pain scale. Quality of pain is described as sharp. Neuro: No deficits noted. Level of Consciousness is awake, alert, obeys commands, Oriented to person, place, time, situation, Appropriate for age. Respiratory: No deficits noted. Airway is patent Respiratory effort is even, unlabored, Respiratory pattern is regular, symmetrical. Historical: - Allergies: 12:52 NKA; cm10 - PMHx: 12:52 CABG; Chronic pain; Diabetes - NIDDM; Hypercholesterolemia; Hypertension; Myocardial cm10 infarction; - PSHx: 12:52 heart bypass; cm10 - Immunization history:: Adult Immunizations up to date. - Infectious Disease History:: Denies. - Social history:: Smoking status: Patient denies any tobacco usage or history of. - Family history:: not pertinent. Screenin:04 [facility] ED Fall Risk Assessment (Adult) History of falling in the last 3 months, me1 including since admission No falls in past 3 months (0 pts) Confusion or Disorientation No (0 pts) Intoxicated or Sedated No (0 pts) Impaired Gait No (0 pts) Mobility Assist Device Used No (0 pt) Altered Elimination No (0 pt) Score/Fall Risk Level 0 - 2 = Low Risk Maintained a safe environment, Provided non-skid footwear, Hourly rounding (assess needs \T\ fall precautionary measures) done. Abuse screen: Denies threats or abuse. Nutritional screening: No deficits noted. Tuberculosis screening: No symptoms or risk factors identified. Assessment: 14:04 General: Appears uncomfortable, well groomed, well developed, well nourished, Behavior me1 is calm, Reports LEFT SIDED FLANK PAIN ONSET THIS MORNING. PT STATES THAT THE PAIN IS WORSE WHEN HE TRIES TO WALK. Pain: Complains of pain in left flank Pain does not radiate. Pain currently is 8 out of 10 on a pain scale. Quality of pain is described as sharp, Pain began suddenly, Is continuous, Alleviated by Aggravated by increased activity. Neuro: Level of Consciousness is awake, alert, obeys commands, Oriented to person, place, time, situation, Appropriate for age. Cardiovascular: Patient's skin is warm and dry. Respiratory: Airway is patent Respiratory effort is even, unlabored, Respiratory pattern is regular, symmetrical. GI: No signs and/or symptoms were reported involving the gastrointestinal system. : Reports pain in left flank(s). EENT: No signs and/or symptoms were reported regarding the EENT system. Derm: Skin is intact, is healthy with good turgor, Skin is pink, warm \T\ dry. Musculoskeletal: Reports pain in left flank. Vital Signs: 12:51 BP 139 / 85; Pulse 84; Resp 16; Temp 98.3; Pulse Ox 97% on R/A; Weight 133.81 kg; cm10 Height 6 ft. 1 in. ; Pain 10/10; 14:00 BP 130 / 76; Pulse 63; Resp 18; Pulse Ox 98% ; me1 15:00 BP 164 / 99; Pulse 60; Resp 18; Pulse Ox 98% ; me1 16:00 BP 156 / 92; Pulse 66; Resp 18; Pulse Ox 98% on R/A; me1 12:51 Body Mass Index 38.92 (133.81 kg, 185.42 cm) cm10 12:51 Pain Scale: Adult cm10 ED Course: 12:33 Patient arrived in ED. sj2 12:39 Rico Quintero MD is Attending Physician. corina 12:52 Triage completed. cm10 12:52 Arm band placed on right wrist. Patient placed in waiting room. cm10 13:41 Fabiana Denney, TIARRA is Primary Nurse. me1 14:04 Patient has correct armband on for positive identification. Bed in low position. Call me1 light in reach. Side rails up X2. Provided Education on: POC, Verbalized understanding. Client placed on continuous cardiac and pulse oximetry monitoring. NIBP monitoring applied. Pulse ox on. NIBP on. 14:04 No provider procedures requiring assistance completed. me1 14:16 CBC with Diff Sent. me1 14:16 CMP Sent. me1 14:16 Lipase Sent. me1 14:16 Initial lab(s) drawn, by mt, sent to lab. Inserted saline lock: 22 gauge in right me1 forearm, using aseptic technique. 14:32 CT Stone Protocol In Process Unspecified. EDMS 14:48 Urine collected: clean catch specimen, cloudy. me1 14:49 Urinalysis w/ reflexes Sent. me1 15:19 Warm blanket given. Verbal reassurance given. am7 15:59 Orlando Michael MD is Referral Physician. corina 16:15 IV discontinued, intact, bleeding controlled, No redness/swelling at site. Pressure me1 dressing applied. Administered Medications: 14:25 Drug: Ondansetron IVP 4 mg IVP once; over 2 minutes Route: IVP; Site: left forearm; me1 15:17 Follow up: Response: No adverse reaction; Nausea is decreased me1 14:25 Drug: morphine IVP or IV 4 mg IVP once over 4 mins Route: IVP; Infused Over: 4 mins; me1 Site: right forearm; 15:17 Follow up: Response: No adverse reaction; Pain is decreased me1 14:25 Drug: NS 0.9% IV 1000 ml IV at 1 bolus Per protocol; to be given as a bolus over 60 me1 minutes Route: IV; Rate: 1 bolus; Site: right forearm; 16:15 Follow up: Response: No adverse reaction; IV Status: Completed infusion; IV Intake: me1 1000ml 15:24 Drug: Rocephin IV 1 grams IV at per protocol once; Given slow IV push per pharmacy me1 instructions Route: IV; Rate: per protocol; Site: right forearm; 15:24 Follow up: Response: No adverse reaction; IV Status: Completed infusion me1 15:24 Drug: Ciprofloxacin PO 500 mg PO once Route: PO; me1 15:25 Follow up: Response: No adverse reaction me1 15:24 Drug: Ketorolac IVP 30 mg IVP once Route: IVP; Site: right forearm; me1 15:25 Follow up: Response: No adverse reaction; Pain is decreased me1 15:24 Drug: Diazepam PO 10 mg PO once Route: PO; me1 15:25 Follow up: Response: No adverse reaction me1 Medication: 14:04 VIS not applicable for this client. me1 Intake: 16:15 IV: 1000ml; Total: 1000ml. me1 Outcome: 16:00 Discharge ordered by . corina 16:15 Discharged to home ambulatory, with family, me1 16:15 Condition: stable 16:15 Discharge instructions given to patient, family, Instructed on discharge instructions, follow up and referral plans. medication usage, Demonstrated understanding of instructions, follow-up care, medications, Prescriptions given X x5 16:16 Patient left the ED. me1 Signatures: Dispatcher [employer] Rico Marie MD MD cha Martinez, Clarissa, RN RN cm10 Fabiana Denney RN RN me1 Gray Rodrigues 2 Keiry Klein am7 Corrections: (The following items were deleted from the chart) 14:04 12:51 Chief complaint: Patient states: LEFT SIDED FLANK PAIN ONSET THIS MORNING. PT me1 STATES THAT THE PAIN IS WORSE WHEN HE TRIES TO WALK. cm10
[2024-10-01 16:21] VITALS: TEMP 98.3
[2024-10-01 16:22] VITALS: O2SAT 98
[2024-10-01 16:25] VITALS: BP 156/92
== END 2024-10-01 16:16 | disposition home or self-care (01) ==
LOC: ER 12:27
DX: S33.8XXA Sprain of other parts of lumbar spine and pelvis, initial encounter (principal); M51.16 Intervertebral disc disorders with radiculopathy, lumbar region; G89.29 Other chronic pain; A08.39 Other viral enteritis; E66.9 Obesity, unspecified; E11.9 Type 2 diabetes mellitus without complications; I10 Essential (primary) hypertension; Z95.1 Presence of aortocoronary bypass graft
CPT/HCPCS: 85025; 81001; 36415; 83690; 80053; 76377; 74176; 99284; J2405; J7030; J0696

== ENCOUNTER 2025-08-01 09:00 | Day surgery (SDC) | payer OTHER ==
[2025-07-30 10:21] LABS: Absolute Lymphocytes (CBC) 1.3 K/uL (0.7-4.9); Hematocrit 44.3 % (39.6-49.0); Hemoglobin 14.4 g/dL (13.6-17.9); MCH 28.3 pg (27.0-35.0); MCHC 32.6 g/dL (32.0-36.0); MCV 86.8 fL (80-100); MPV 10.0 fL (7.6-11.3); Nucleated RBC Absolute Count 0.0 (0-0); Nucleated Red Blood Cells % 0.0 % (0-0); RBC Red Blood Cell Count 5.10 M/uL (4.33-5.43); White Blood Count 4.80 thou/uL (4.3-10.9)
[2025-07-30 10:35] LABS: PT Prothrombin Time 12.1 SECONDS (10-13.0); PTT, Activated Partial Thromb 28.5 SECONDS (27.2-37.4); Protime INR 1.07
[2025-07-30 10:42] LABS: Anion Gap 8.2 mEq/L (5.0-15.0); BUN Blood Urea Nitrogen 13.0 mg/dL (7-18); Glucose Level 131.0 mg/dL (74-106); Potassium 4.2 mEq/L (3.5-5.1)
[2025-08-01] MEDS ORDERED: NA CHLORIDE 0.9% 500 ML ONE (09:45)
[2025-08-01] MEDS ORDERED: ASPIRIN 81 MG CHEWABLE TABLET ONE (09:45)
[2025-08-01 09:56] VITALS: TEMP 98
[2025-08-01] MEDS ORDERED: HEPARIN 10,000 UNIT/10 ML VIAL IV ONE (11:18)
[2025-08-01] MEDS ORDERED: HEPA 1000U/500MLS 2,000 UNIT/1,000 ML BAG IV ONE (11:18)
[2025-08-01] MEDS ORDERED: HEPARIN 5000 UNIT/ML 1 ML VIAL ONE (11:18)
[2025-08-01] MEDS ORDERED: LIDOCAINE 1% 20 ML MDV ONE (11:18)
[2025-08-01] MEDS ORDERED: FENTANYL CITR 100 MCG/2 ML ONE (11:27)
[2025-08-01] MEDS ORDERED: MIDAZOLAM HCL 2 MG/2 ML INJ ONE (11:28)
[2025-08-01] MEDS ORDERED: TICAGRELOR 90 MG TABLET PO ONE (11:53)
[2025-08-01] MEDS ORDERED: CLOPIDOGREL 75 MG TABLET ONE (12:44)
[2025-08-01] MEDS ORDERED: ACETAMINOPHEN 325 MG TABLET ONE (15:27)
[2025-08-01 16:44] VITALS: BP 162/78
[2025-08-01 16:48] VITALS: O2SAT 99
--- NOTE | 2025-08-01 23:39 | OP ---
Date of Procedure: 08/01/2025 Surgeon: Ari Littlejohn Procedure Performed: PCI of the LAD into diagonal with Synergy 2.75 x 24 mm drug-eluting stent. Indication For Procedure: History of CAD, CABG with significant disease in the LAD to diagonal from a prior diagnostic procedure. Complications: None. Estimated Blood Loss: Less than 50 cc. Access: Right radial, closed by TR band. Sedation Time: 30 minutes with 2 of Versed and 75 of fentanyl. Description Of Procedure: After risks, benefits, and alternatives were explained to the patient, the patient agreed to proceed with procedure and signed informed consent. The patient was brought back to the laboratory monitor, prepped and draped in sterile fashion. Time-out was performed. Sedation was admini stered. Next, right radial access was obtained using ultrasound-guided micropuncture technique. An EBU3.5 mm guide was advanced over J-wire to the aortic root. Selective angiogram was done using that guide. After that, heparin was administered. ACT was therapeutic. Runthrough wire was passed acro ss the LAD and diagonal. We used a GuideLiner support to deliver balloons. Pre-dilated the lesion w ith a regular 2.5 mm balloon followed by an NC 2.5 and 3.0 mm balloons. After that, Synergy 2.75 x 2 4 mm drug-eluting stent was placed from the proximal LAD into diagonal and postdilated with NC 3.0 mm balloon. Final angiogram shows ROBERT-3 flow. Wire was removed. Catheter was removed over a J-wire. Sheath was removed. TR band was applied. Hemostasis achieved. The patient was moved back to [facility] in stable condition. Findings: 1. Left main normal. 2. LAD: Proximal 70% disease extending into the diagonal, that is large in size with 80 to 90% disea se ostially to proximally, status post PCI as above. Then mid LAD is 100% occluded and the diagonal mid to distal mild luminal irregularities. 3. Left circ: 100% proximal in-stent restenosis. Assessment And Plan: Severe proximal LAD into the diagonal 1 disease, status post PCI with Synergy 2 .75 x 24 mm drug-eluting stent. Plan: 1. To continue aspirin 81 mg daily for life. 2. Continue Plavix 75 mg daily for 12 months. MELCHOR/MARIA E Voice ID: [id number] Report ID: [id number]
== END 2025-08-01 16:20 | disposition home or self-care (01) ==
LOC: CCL 09:00
PROVIDERS: ATTEND Internal Medicine Interventional Cardiology
DX: I25.10 Atherosclerotic heart disease of native coronary artery without angina pectoris (principal); I25.82 Chronic total occlusion of coronary artery; T82.855A Stenosis of coronary artery stent, initial encounter; I70.203 Unspecified atherosclerosis of native arteries of extremities, bilateral legs; I25.2 Old myocardial infarction; I11.0 Hypertensive heart disease with heart failure; I50.32 Chronic diastolic (congestive) heart failure; I71.43 Infrarenal abdominal aortic aneurysm, without rupture; E78.2 Mixed hyperlipidemia; E11.9 Type 2 diabetes mellitus without complications; Z95.1 Presence of aortocoronary bypass graft; E66.01 Morbid (severe) obesity due to excess calories; Z68.35 Body mass index [BMI] 35.0-35.9, adult; Z79.01 Long term (current) use of anticoagulants; Z79.84 Long term (current) use of oral hypoglycemic drugs; Z79.899 Other long term (current) drug therapy
CPT/HCPCS: 93005; 85025; 80048; 36415; 85610; 82947; 85347; 85730; 93454; 76937; C1893; Q9967; C1725; C9600; J1644 ×2; J2003; J2250; J3010; J7040; 92928; 99152; 99153